=== PATIENT | male | born 1990 | race Caucasian/White ===

== ENCOUNTER 2024-01-18 11:33 | Inpatient (IN) | payer MEDICARE, MEDICAID, SELFPAY ==
[2024-01-18] VITALS (11 sets, daily range): BP systolic 131–155; BP diastolic 90–99; PULSE 95–109; RESP 14–27; TEMP 36.1–37; O2SAT 95–100; BMI 26.7; BMI 31.4
--- NOTE | 2024-01-18 12:26 | XR_ITS ---
Examination: CT abdomen and pelvis without contrast. Coronal 3-D reconstructions. Sagittal 2-D reconstructions. Date and time of exam:January 18, 2024 at 1255 hrs. Comparison August 23, 2020 Indications: Blood in urine today CTDI: vol (mGy): 15.3 DLP: (mGycm): 1022 Technique: Axial images of the abdomen have been obtained, 3 mm slice thickness Intravenous contrast material has not been administered. Low dose protocols were performed. One or more of the following dose reduction techniques were used; automated exposure control, adjustment of the mA and/or KV according to patient size, use of iterative reconstruction technique. Findings: Mild enlargement cardiac contour with small bilateral pleural effusions No liver or splenic lesions Numerous bilateral renal calculi, atrophic left kidney No definite ureteral calculi No gallstones No bowel obstruction No diastases of the abdominal musculature but no mary hernia defects No bowel obstruction No diverticulitis Bladder contracted around a Richardson catheter with marked bladder wall thickening Severe osteopenia Impression: Numerous bilateral renal calculi Atrophic left kidney Significant bilateral renal parenchymal scar formation No hydronephrosis or ureteral calculi Marked thickening of the urinary bladder wall consider cystitis
--- NOTE | 2024-01-18 12:26 | PD.EDADULT ---
ED General RME/HPI General Chief complaint: Weakness Stated complaint: WEAKNESS, BLOOD IN MAY BAG Time Seen by Provider: 01/18/24 11:48 Arrival date/time: 01/18/24 11:33 CC: Bloody urination, hypotension HPI patient is a quadriplegic this presents to the ER via EMS reports stable vital signs patient is afebrile nontoxic-appearing concerned that he started having bloody urination yesterday out of his May catheter. The patient shows me recent surgical intervention to his right upper arm and states since then everything has been okay until yesterday when he urinated blood, denies fever. States that he takes a [place] every 4-5 hours [id number]. Immediately asking for pain medication. Patient has no other complaints Related Data Home Medications ?Medication ?Instructions ?Recorded ?Confirmed gabapentin 600 mg tablet 600 mg PO TID 03/29/19 12/26/22 cholestyramine (with sugar) 4 gram 1 ea PO BID 08/24/20 12/26/22 powder for susp in a packet cyclobenzaprine 5 mg tablet 5 mg PO BID 08/24/20 12/26/22 levothyroxine 25 mcg tablet 25 mcg PO QDAY 08/24/20 12/26/22 magnesium oxide 400 mg PO BID 08/24/20 12/26/22 sevelamer carbonate 800 mg tablet 2,400 mg PO TIDWMEAL 08/24/20 12/26/22 sodium zirconium cyclosilicate 10 10 g PO QDAY 08/24/20 12/26/22 gram oral powder packet (Lokelma) cinacalcet 30 mg tablet 30 mg PO QDAY 07/10/22 12/26/22 midodrine 10 mg tablet 10 mg PO TID PRN Hypotension 07/10/22 12/26/22 omeprazole 40 mg capsule,delayed 40 mg PO QDAY 07/10/22 12/26/22 release hydrocodone 10 mg-acetaminophen 1 tab PO Q6H PRN Pain (Scale Score 12/26/22 12/26/22 325 mg tablet 7-10) sodium bicarbonate 650 mg tablet 650 mg PO BID 12/26/22 12/26/22 Previous Rx's ?Medication ?Instructions ?Recorded mupirocin 2 % topical ointment 1 applic topical BID #22 grams 12/28/22 Allergies Allergy/AdvReac Type Severity Reaction Status Date / Time piperacillin [From Zosyn] Allergy Severe Anaphylaxis Verified 01/18/24 12:28 tazobactam [From Zosyn] Allergy Severe Anaphylaxis Verified 01/18/24 12:28 LIZY Inhibitors Allergy Verified 01/18/24 12:28 Penicillins Allergy Anaphylaxis Verified 01/18/24 12:28 Review of Systems Review of Systems Narrative Review of Systems: GEN: No fever, no chills, no weight loss EYES: No discharge, no visual changes, no pain HEENT: No ear pain, no congestion, no sore throat PULM: No shortness of breath, no cough, no congestion CV: No chest pain, no dyspnea on exertion, no palpitations GI: No nausea, no vomiting, no diarrhea, no pain, no constipation : No frequency, no urgency, no dysuria SKIN: No rash PSYCH: No hallucinations, no depression NEURO: No weakness, no headache Past Medical History Past Medical History NEUROLOGIC: Positive Paralysis and Spinal Cord Injury; Negative Seizures CARDIAC: Positive Cardiac Disorders, Cardiac Arrhythmia, Hypertension and Hypotension; Negative Congestive Heart Failure RESPIRATORY: Positive Sleep Apnea, Orthopnea and Intubation; Negative Chronic Obstructive Pulmonary Disease (COPD) or Asthma GASTROINTESTINAL: Positive Gastrointestinal Disorders, Gastrointestinal Bleed, Hemorrhoids and Gastroesophageal Reflux Disease GENITOURINARY: Positive Genitourinary Disorders, Renal Disease, Kidney Stones, Neurogenic Bladder and Dialysis MUSCULOSKELETAL: Positive Musculoskeletal Disorders ENDOCRINE: Positive Hypothyroidism; Negative Diabetes Mellitus Type 1 or Diabetes Mellitus Type 2 HEMATOLOGIC: Negative Sickle Cell Disease PSYCHO/SOCIAL: Positive Depression and Anxiety OTHER HISTORY: Positive Hospitalization, Falls and Blood Transfusions; Negative Blood Transfusion Reaction or Anesthesia Reactions Family History FAMILY HISTORY: Positive Family Cancer Surgical History SURGICAL: Positive Tracheostomy (2004) Social History SMOKING STATUS: Current every day smoker SECOND HAND EXPOSURE: No (11 cig/day since 16 yrs old) SUBSTANCE USE: marijuana (smokes daily) OCCUPATION: Unemployed, disabled ED Exam Narrative Physical exam: [General: Obese, appears not in any acute distress Head normocephalic HEENT: Within acceptable limits Neck is supple nontender, no edema no JVD Chest equal chest rise nontender to palpation Respiratory: Clear to auscultation no wheezes crackles or rubs CV: Rate rhythm is regular no murmurs rubs or clicks Abdomen is distended secondary to body habitus soft positive bowel sounds, patient is quadriplegic therefore no sensation. Skin: Inner upper arm surgical site clean dry and intact no surrounding erythema or edema intact no petechiae rash induration ulceration or crepitus Extremities:, Deconditioned, no contractures limp, but passive range of motion. Neuro: Awake alert oriented x3 Course Quality Measures none Orders Category Date Time Status CT abdomen pelvis wo con Stat Exams 01/18/24 12:26 Completed CBC Stat Lab 01/18/24 14:03 Completed CMP [Comprehensive Metabolic Panel] Stat Lab 01/18/24 14:03 Completed Urinalysis Stat Lab 01/18/24 12:44 Completed HYDROcodone*/APAP 5/325 [[place] 5/325] Med 01/18/24 12:26 Discontinued 1 tab PO X1 ONE Vital Signs Vital signs: Vital Signs Temperature 97.9 F 01/18/24 11:37 Pulse Rate 101 H 01/18/24 11:37 Respiratory Rate 20 01/18/24 11:37 Blood Pressure 136/93 H 01/18/24 11:37 Pulse Oximetry (%) 95 01/18/24 11:37 Oxygen Delivery Method Room Air 01/18/24 11:37 [facility] Patient data External records reviewed:: [facility] previous records and EMS form Clinical information provided by:: patient and EMS Social determinants that could affect healthcare access:: none Patient has the following chronic illnesses:: Quadriplegia How is presenting disease/condition affected by chronic disease/condition?: uneffected by Evaluation data The following diagnostics were reviewed and interpreted by me:: lab results and radiology exam(s) Lab and/or radiology exams considered but not ordered:: CBC shows no acute leukocytosis there is a stable anemia no thrombocytopenia Urine is grossly infected, with positive nitrites, positive leukocyte esterase large number of WBCs and bacteria is minimal. CT of the abdomen shows a thickened bladder wall but also numerous renal pelvis stones, no hydro. Interpretation Summary: Patient presents a complex case even though the patient is asymptomatic nontoxic-appearing not in any acute distress the urine culture from August of this year's complaint showing 3 different bacteria that have multidrug resistance. ESBL is on the differential. Patient's case discussed with Dr. Bolden who agrees to accept the patient for observation for IV antibiotics to see if we can stabilize this. CT notes that the patient has large number of stones which have the potential being infected as well. Medications Medications considered but not ordered:: None Medication administrations:: Medication Administration History Acetaminophen (Acetaminophen 325 Mg Tablet) 650 mg PO Q6H PRN PRN Reason: Fever >101.5 Stop: 02/17/24 15:29 Acetaminophen (Acetaminophen Supp 650 Mg Supp) 650 mg DE Q6H PRN PRN Reason: PAIN SCALE 1-3 (mild Stop: 02/17/24 15:29 Albuterol (Albuterol Rt 2.5 Mg/0.5 Ml Nebu) 2.5 mg INH Q6HRRT FOREIGN Stop: 02/17/24 18:59 Last Admin: 01/18/24 18:26 Dose: 2.5 mg Documented By: NIYAH Doxycycline Hyclate (Doxycycline 100 Mg Tablet) 100 mg PO BID FOREIGN Stop: 01/25/24 20:59 Last Admin: 01/18/24 20:05 Dose: 100 mg Documented By: Meropenem 1,000 mg/ Sodium (Chloride) 50 mls @ 100 mls/hr IV QDAY FOREIGN Stop: 01/25/24 17:44 Last Infusion: 01/18/24 19:14 Dose: Infused Documented By: Admin: 01/18/24 18:16 Dose: 100 mls/hr Documented By: Ondansetron HCl (Ondansetron Inj 2 Mg/Ml Inj 2 Ml) 4 mg IV Q6H PRN; Protocol PRN Reason: NAUSEA OR VOMITING Stop: 02/17/24 15:29 Oxycodone/Acetaminophen (Oxycodone/Apap 5/325 Tablet) 2 tab PO Q6H PRN PRN Reason: Pain Scale 4-10 (Moderate Stop: 01/23/24 15:40 Last Admin: 01/18/24 19:57 Dose: 2 tab Documented By: Pantoprazole Sodium (Pantoprazole 40 Mg Tablet) 40 mg PO QDAY FOREIGN Stop: 02/18/24 08:59 Sennosides (Senna Tablet) 1 tab PO QDAY FOREIGN; Protocol Stop: 02/18/24 08:59 Sodium Chloride (Sodium Chloride Rt [place] 0.9% 3 Ml Nebu) 3 ml INH PRN PRN PRN Reason: SOLN Stop: 02/17/24 15:29 Last Admin: 01/18/24 18:26 Dose: 3 ml Documented By: NIYAH Discontinued Medications Hydrocodone Bitart/Acetaminophen (Hydrocodone/Apap 5/325 Tablet) 1 tab PO X1 ONE Stop: 01/18/24 12:27 Last Admin: 01/18/24 12:39 Dose: 1 tab Documented By: DO Ceftriaxone Sodium/Dextrose (Rocephin/D5w 1gm Iv Premix) 50 mls @ 100 mls/hr IV QDAY FOREIGN Stop: 01/25/24 16:21 Last Admin: 01/18/24 17:25 Dose: Not Given Documented By: DO Non-Admin Reason: Cancelled by Provider None Consultations Consultation(s) initiated? (list below): No Diagnosis Differential Diagnosis ED Complaint MDM: ESBL, pyelonephritis, UTI Most likely diagnosis given after review of the tests above:: Multidrug resistant UTI Admission Indicated Admission indicated?: indicated Explain why admission is indicated or not indicated:: Requires further medical management Admission Request Was there a request for admission?: No Disposition Plan Disposition Plan: Discharge Discharge Attestation Discharge Attestation: The patient and all family members were given an opportunity to ask questions and understood the discharge instructions. Discharge instructions specifically effects, indications for sooner follow up or return to the emergency department, and the expected course of current diagnosis. Patient condition: Stable Medical Decision Making Differential Diagnosis Differential Diagnosis: ESBL, pyelonephritis, UTI Lab Data 01/18/24 14:03 01/18/24 14:03 Labs: Lab Results 01/18/24 01/18/24 Range/Units 12:44 14:03 WBC 7.8 (3.8-10.6) Thou/mm3 RBC 3.27 L (4.50-5.90) Miln/mm3 Hgb 11.0 L (13.5-16.0) g/dL Hct 34.9 L (41.0-53.0) % MCV 107 H (80-100) fL MCH 33.6 (25.0-35.0) pg MCHC 31.5 (31.0-37.0) g/dl RDW Std Deviation 52.6 H (35.1-43.9) fL Plt Count 149 (140-440) Thou/mm3 Neut % (Auto) 76 (37-80) % Lymph % (Auto) 10 (10-50) % [place] % (Auto) 10 (0-12) % Eos % (Auto) 2 (0-10) % Baso % (Auto) 1 (0-2.5) % Neut # (Auto) 6.0 (1.8-7.7) Thou/mm3 Lymph # (Auto) 0.8 L (1.0-4.8) Thou/mm3 [place] # (Auto) 0.8 (0.0-0.8) Thou/mm3 Eos # (Auto) 0.2 (0.0-0.5) Thou/mm3 Baso # (Auto) 0.1 (0.0-0.2) Thou/mm3 Immature Gran # (Auto) 0.03 H (0.00-0.00) Thou/mm3 Absolute Nucleated RBC 0.00 (0.00-0.00) Thou/mm3 Immature Gran % 0 (0-0) % Nucleated RBC % 0 (0) /100 WBC Sodium 134 L (136-145) mMol/L Potassium 4.7 (3.4-5.1) mMol/L Chloride 101 (98-107) mMol/L Carbon Dioxide 26.3 (20.0-31.0) mMol/L Anion Gap 7 (7-16) BUN 27 H (9-23) mg/dL Creatinine 3.5 H (0.6-1.3) mg/dL Estim Creat Clear Calc 36.2 L (>60) mL/min eGFR 22 L (60 - ) See Note BUN/Creatinine Ratio 8 L (12-20) Ratio Glucose 95 (74-106) mg/dL Calculated Osmolality 273 L (275-295) Calcium 9.4 (8.3-10.6) mg/dL Corrected Calcium 9.4 (8.5-10.1) mg/dL Total Bilirubin 0.2 L (0.3-1.2) mg/dL AST 10 (0-34) U/L ALT 10 (10-49) U/L Alkaline Phosphatase 140 H (46-116) U/L Total Protein 7.1 (5.7-8.2) gm/dL Albumin 4.0 (3.5-5.0) gm/dL Globulin 3.1 (2.3-3.5) gm/dL Albumin/Globulin Ratio 1.3 (1.2-2.2) Ur Collection Type Catheter Urine Color [place] A (Lt Yel-Yel) Urine Clarity Turbid A (Clear/Hazy) Urine pH 7.0 (5.0-7.0) Ur Specific [place] 1.007 (1.001-1.035) Urine Protein 3+ A (Neg - Trace) Urine Glucose (UA) Negative (Negative) Urine Ketones Negative (Negative) Urine Blood 3+ A (Negative) Urine Nitrite Positive (Negative) Urine Bilirubin Negative (Negative) Urine Urobilinogen (Auto) Negative (0.0-1.0) mg/dL Ur Leukocyte Esterase Positive (Negative) Urine RBC 178 H (0-3) /hpf Urine WBC 2116 H (0-5) /hpf Ur Squamous Epith Cells 0 (0-5) /hpf Urine Bacteria None (None) Discharge Plan Plan Patient Disposition: Admit Acute Care w/in Hospital Patient condition on transfer: Stable Problem List Clinical Impression: Urinary tract infection, Colonization with multidrug-resistant bacteria MAYTE/MADELAINE Supervising Physician MAYTE/CAREER DEVELOPMENT MANAGER Supervising Physician: Alison Crews ENP
[2024-01-18] MEDS: HYDROcodone/APAP 5/325 TABLET 1 TAB PO (12:39)
--- NOTE | 2024-01-18 12:49 | PC.NURSE ---
pt to ct
[2024-01-18 12:58] LABS: Collection Type, Urine Catheter; Squamous Epithelial Cell,Urine 0 /hpf (0-5)
[2024-01-18 13:09] LABS: Bilirubin,Urine Negative (Negative); Blood,Urine 3+ (Negative); Glucose, Urine Negative (Negative); Ketones,Urine Negative (Negative); Leukocyte Esterase,Urine Positive (Negative); Nitrite,Urine Positive (Negative); Protein,Urine 3+ (Neg - Trace); RBC,Urine 178 /hpf (0-3); Specific Gravity,Urine 1.007 (1.001-1.035); Urobilinogen,Urine Negative mg/dL (0.0-1.0); WBC,Urine 2116 /hpf (0-5)
[2024-01-18 13:10] LABS: Clarity,Urine Turbid (Clear/Hazy); Color,Urine Orange (Lt Yel-Yel)
[2024-01-18 14:10] LABS: Basophils # (Auto) 0.1 Thou/mm3 (0.0-0.2); Basophils % (Auto) 1 % (0-2.5); Eosinophils # (Auto) 0.2 Thou/mm3 (0.0-0.5); Eosinophils % (Auto) 2 % (0-10); Hematocrit 34.9 % (41.0-53.0); Immature Granulocytes % (Auto) 0 % (0-0); Immature Granulocytes Auto 0.03 Thou/mm3 (0.00-0.00); Lymphocytes # (Auto) 0.8 Thou/mm3 (1.0-4.8); Lymphocytes % (Auto) 10 % (10-50); Mean Corpuscular HGB Conc 31.5 g/dl (31.0-37.0); Mean Corpuscular Hemoglobin 33.6 pg (25.0-35.0); Mean Corpuscular Volume 107 fL (80-100); Monocytes # (Auto) 0.8 Thou/mm3 (0.0-0.8); Monocytes % (Auto) 10 % (0-12); Neutrophils % (Auto) 76 % (37-80); Nucleated Red Blood Cell % 0 /100 WBC (0); Platelet Count 149 Thou/mm3 (140-440); RDW Standard Deviation 52.6 fL (35.1-43.9); Red Blood Count 3.27 Miln/mm3 (4.50-5.90); White Blood Count 7.8 Thou/mm3 (3.8-10.6)
[2024-01-18 14:43] LABS: Alanine Aminotransferase 10 U/L (10-49); Albumin/Globulin Ratio 1.3 (1.2-2.2); Alkaline Phosphatase 140 U/L (46-116); Anion Gap 7 (7-16); Aspartate Amino Transferase 10 U/L (0-34); BUN/Creatinine Ratio 8 Ratio (12-20); Bilirubin,Total 0.2 mg/dL (0.3-1.2); Blood Urea Nitrogen 27 mg/dL (9-23); Calcium 9.4 mg/dL (8.3-10.6); Calcium (Corrected) 9.4 mg/dL (8.5-10.1); Carbon Dioxide 26.3 mMol/L (20.0-31.0); Chloride 101 mMol/L (98-107); Creatinine (Component) 3.5 mg/dL (0.6-1.3); Estimated Creatinine Clearance 36.2 mL/min (>60); Globulin 3.1 gm/dL (2.3-3.5); Glucose 95 mg/dL (74-106); Osmolality,Calculated 273 (275-295); Potassium 4.7 mMol/L (3.4-5.1); Sodium 134 mMol/L (136-145); Total Protein 7.1 gm/dL (5.7-8.2); eGFR 22 See Note
--- NOTE | 2024-01-18 15:50 | PD.RESCONSUL ---
HPI Data of Consult Primary Care Provider: Bryce Bunn MD Consult Narrative History of present illness: 33 year old male PMHx paraplegia since age 13, ESRD on HD since 2019, recurrent nephrolithiasis w/ UTI and pyelonephritis, tunneled catheter with MRSA infection, abdominal necrotizing fasciitis s/p extensive skin graft, s/p ileostomy presented to ED with hematuria x 1 day. Notably he visited the ED november 2023 for UTI and was discharged on bactrim, subsequent cultures showed that he had multidrug resistant infection with klebsiella, pseudomonas, e coli. Pt states he has not had visible blood in his urine for a few years. He reports that he does not feel like he has a fever, malaise , or chills, but does note that he feels weak. Pt states that he takes norco 10 around the clock every 4-5 hours for pain. He has no pubic or abdominal pain due to his SCI. He has a chronic indwelling catheter which he notes is changed every 3 weeks, and he gets HD every friday and friday. PMH: paraplegic since age 13, ESRD with HD, recurrent nephrolithiasis, recurrent UTI, MRSA infection, PSHx: left IJ cath placement for HD Allergies: zosyn-anaphylaxis, penicillin, AceI Social history: -Smoking: cigarettes 10 pack year history -Alcohol Use: none -Illicit Drug Use: marijuana but says he stopped recently -Occupation:unemployed -lives : with family Family History:none noted cc:: cc: Review of Systems Review of Systems Narrative Review of Systems: ROS: -CONSTITUTIONAL: Denies weight loss, fever and chills. -HEENT: Denies changes in vision and hearing. -RESPIRATORY: endorses SOB and cough. -CV: Denies palpitations and Chest Pain. -GI: Denies abdominal pain, nausea, vomiting,constipation and diarrhea. -: Denies dysuria and urinary frequency. -MSK: Denies myalgia and joint pain. -SKIN: Denies rash and pruritus. -NEUROLOGICAL: Denies headache and syncope. Exam Vital Signs Temp Pulse Resp BP Pulse Ox O2 Del Method O2 Flow Rate 97.8 F 107 H 18 134/91 H 99 Nasal Cannula 2 01/18/24 14:15 01/18/24 14:15 01/18/24 14:15 01/18/24 14:15 01/18/24 14:15 01/18/24 14:15 01/18/24 14:15 Narrative Exam Physical Exam General: Awake and in no acute distress. Conversational and non-toxic appearing. HEENT: Normocephalic, atraumatic, mucous membranes moist, Heart: Regular rate and rhythm, no murmurs, rubs or gallops. Lungs: coarse breath sounds throughout , ronchi, occasional wheezing in right lower lung field, visibly short of breath when talking Abdomen: Soft, nondistended, nontender, positive bowel sounds. ?No guarding or rebound tenderness. Neurologic: Alert and oriented x3, no sensation or motor function below chest line Extremities: both legs atrophied Skin: No rash or ecchymoses. Results Labs 01/19/24 05:08 01/19/24 05:08 Labs: Short CBC 01/18/24 Range/Units 14:03 WBC 7.8 (3.8-10.6) Thou/mm3 Hgb 11.0 L (13.5-16.0) g/dL Hct 34.9 L (41.0-53.0) % Plt Count 149 (140-440) Thou/mm3 BMP 01/18/24 14:03 Sodium 134 L Potassium 4.7 Chloride 101 Carbon Dioxide 26.3 BUN 27 H Creatinine 3.5 H Glucose 95 Calcium 9.4 Liver Function 01/18/24 Range/Units 14:03 Total Bilirubin 0.2 L (0.3-1.2) mg/dL AST 10 (0-34) U/L ALT 10 (10-49) U/L Alkaline Phosphatase 140 H (46-116) U/L Albumin 4.0 (3.5-5.0) gm/dL Urine 01/18/24 Range/Units 12:44 Urine Color [place] A (Lt Yel-Yel) Urine Clarity Turbid A (Clear/Hazy) Urine pH 7.0 (5.0-7.0) Ur Specific [place] 1.007 (1.001-1.035) Urine Protein 3+ A (Neg - Trace) Urine Glucose (UA) Negative (Negative) Quality Measures Quality Measures VTE prophylaxis Medications Home Medications and Allergies Home Medications ?Medication ?Instructions ?Recorded ?Confirmed ?Type gabapentin 600 mg tablet 600 mg PO TID 03/29/19 12/26/22 History cholestyramine (with sugar) 4 gram 1 ea PO BID 08/24/20 12/26/22 History powder for susp in a packet levothyroxine 25 mcg tablet 25 mcg PO QDAY 08/24/20 01/19/24 History magnesium oxide 400 mg PO BID 08/24/20 12/26/22 History sevelamer carbonate 800 mg tablet 2,400 mg PO TIDWMEAL 08/24/20 12/26/22 History sodium zirconium cyclosilicate 10 10 g PO QDAY 08/24/20 12/26/22 History gram oral powder packet (Lokelma) cinacalcet 30 mg tablet 30 mg PO QDAY 07/10/22 12/26/22 History midodrine 10 mg tablet 10 mg PO TID PRN Hypotension 07/10/22 12/26/22 History omeprazole 40 mg capsule,delayed 40 mg PO QDAY 07/10/22 12/26/22 History release hydrocodone 10 mg-acetaminophen 1 tab PO Q6H PRN Pain (Scale Score 12/26/22 12/26/22 History 325 mg tablet 7-10) sodium bicarbonate 650 mg tablet 650 mg PO BID 12/26/22 12/26/22 History cyclobenzaprine 5 mg tablet 5 mg PO Q8HR PRN Muscle Spasm 01/19/24 01/19/24 History Allergies Allergy/AdvReac Type Severity Reaction Status Date / Time piperacillin [From Zosyn] Allergy Severe Anaphylaxis Verified 01/18/24 12:28 tazobactam [From Zosyn] Allergy Severe Anaphylaxis Verified 01/18/24 12:28 LIZY Inhibitors Allergy Verified 01/18/24 12:28 Penicillins Allergy Anaphylaxis Verified 01/18/24 12:28 Visit Medications Acetaminophen (Acetaminophen 325 Mg Tablet) 650 mg PO Q6H PRN PRN Reason: Fever >101.5 Stop: 02/17/24 15:29 Acetaminophen (Acetaminophen Supp 650 Mg Supp) 650 mg [place] Q6H PRN PRN Reason: PAIN SCALE 1-3 (mild Stop: 02/17/24 15:29 Albuterol (Albuterol Rt 2.5 Mg/0.5 Ml Nebu) 2.5 mg INH Q6HRRT FOREIGN Stop: 02/17/24 18:59 Ondansetron HCl (Ondansetron Inj 2 Mg/Ml Inj 2 Ml) 4 mg IV Q6H PRN; Protocol PRN Reason: NAUSEA OR VOMITING Stop: 02/17/24 15:29 Oxycodone/Acetaminophen (Oxycodone/Apap 5/325 Tablet) 2 tab PO Q6H PRN PRN Reason: Pain Scale 4-10 (Moderate Stop: 01/23/24 15:40 Pantoprazole Sodium (Pantoprazole 40 Mg Tablet) 40 mg PO QDAY FOREIGN Stop: 02/18/24 08:59 Pharmacy Consult (Pharmacy To Consult Patient) 1 each XX QDAY FOREIGN Stop: 02/17/24 15:44 Sennosides (Senna Tablet) 1 tab PO QDAY FOREIGN; Protocol Stop: 02/18/24 08:59 Sodium Chloride (Sodium Chloride Rt [place] 0.9% 3 Ml Nebu) 3 ml INH PRN PRN PRN Reason: SOLN Stop: 02/17/24 15:29 Discontinued Medications Hydrocodone Bitart/Acetaminophen (Hydrocodone/Apap 5/325 Tablet) 1 tab PO X1 ONE Stop: 01/18/24 12:27 Last Admin: 01/18/24 12:39 Dose: 1 tab Assessment & Plan Problem List (1) Urinary tract infection: Status: Acute (2) Colonization with multidrug-resistant bacteria: Status: Acute (3) Hypotension: Status: Acute (4) ESRD (end stage renal disease): Status: Acute (5) Hyponatremia: Status: Acute (6) Renal calculus, bilateral: Status: Acute (7) Hematuria: Status: Acute Assessment 33 year old male PMHx paraplegia since age 13, ESRD on HD since 2019, recurrent nephrolithiasis w/ UTI and pyelonephritis, tunneled catheter with MRSA infection, abdominal necrotizing fasciitis s/p extensive skin graft, s/p ileostomy presented to ED with hematuria x 1 day. Notably he visited the ED november 2023 for UTI and was discharged on bactrim, subsequent cultures showed that he had multidrug resistant infection with klebsiella, pseudomonas, e coli. Arrived to ED afebrile, non toxic appearing with normal WBC, tachycardic at 101, chronically high creatinine of 3.5 BUN 27. UA with 3+ blood and suggestive of UTI , CT A/P showed no hydronephrosis, but with bilateral renal calculi, and cystitis. Due to history of MDR bacteria, and hematuria patient is being admitted to obs for IV antibiotic treatment , consult to nephro for HD and ID. Plan #UTI #Bilateral Renal Calculi #Hematuria History of recurrent UTI and calculi, most recently in november was discharged on bactrim. previous culture showed MDR klebisella, pseudomonas, e.coli. does not meet sepsis criteria, 1/4 SIRS, non toxic appearing. UA with 3+ blood and suggestive of UTI , CT A/P showed no hydronephrosis, but with bilateral renal calculi, and cystitis. plan: - admit to observation - consult ID - Start on doxycycline 100mg po BID , Ceftriaxone for now , spoke w pharmacy - CBC/ Renal panel - oxycodone q6for pain #ESRD on HD since 2018 IJ cath placed in 2019 creatinine 3.5, BUN 27 HD fri and friday under Dr. Jeff plan: - consult nephrology - sodium bicarb 650 po BID - sevelamer 2400mg po TID - cincalcet 30 mg po daily - lokelma 10g po daily - MG Oxide 400mg PO BID #Paraplegia #Hypotension #chronic thoracic pain since age 13 , SCI T5-T6 s/p laminectomy and fusion plan: - continue gabapentin 600mg TID - Midodrine 10mg prn - oxycodone q6 - cyclobenzaprine 5mg po BID #hypothyroidism TSH 1.62 12/2022 plan: - continue home levothyroxine 25mcg Case discussed in detail with attending Dr. Bolden
[2024-01-18] MEDS: MEROPENEM INJ 1,000 MG in SODIUM CHLORIDE 0.9% (P) 50 ML 100 MG IV (18:16)
[2024-01-18] MEDS: SODIUM CHLORIDE RT SOL 0.9% 3 ML NEBU INH (18:26)
[2024-01-18] MEDS: ALBUTEROL RT 2.5 MG/0.5 ML NEBU INH (18:26)
--- NOTE | 2024-01-18 18:43 | XR_ITS ---
Examination: AP chest single view Technique one AP portable sitting chest single view Exam date and time: January 18, 2024 1848 hrs. Indications: Shortness breath chest pain today. Findings: Opacity left base and lingular segment consistent with pneumonia Abnormally prominent right paratracheal region Orthopedic hardware upper thoracic spine Normal heart size Impression: Pneumonia left base and lingular segment left upper lobe Recommend CT chest with contrast follow-up to exclude right mediastinal tumor lymphadenopathy
--- NOTE | 2024-01-18 18:45 | PC.RT ---
PT showing no improvement with breathing tx and cuourse crackles heard. MD Grady contacted and [facility] for chest x-ray and BiPAP order.
--- NOTE | 2024-01-18 18:45 | PC.NURSE ---
CHANGED PT'S LINENS. REDNESS AND OLD SCARRING NOTED TO BUTTOCK AREA. PER PT HE HAD BED SORES IN THE PAST. COLOSTOMY BAG DRAINED
--- NOTE | 2024-01-18 19:14 | PC.NURSE ---
REPORT GIVEN TO JENN ON MED/SURG FLOOR. PT TO GO TO ROOM [id number]
[2024-01-18] MEDS: oxyCODONE/APAP 5/325 TABLET 2 TAB PO (19:57)
[2024-01-18] MEDS: DOXYCYCLINE 100 MG TABLET PO (20:05)
[2024-01-18] MEDS: ALPRazoLAM 0.25 MG TABLET PO (23:57)
[2024-01-19] VITALS (30 sets, daily range): BP systolic 96–179; BP diastolic 41–98; PULSE 85–115; RESP 14–29; TEMP 36.1–36.5; O2SAT 92–100
[2024-01-19] MEDS: LEVOTHYROXINE SODIUM 25 MCG TABLET PO (06:01)
[2024-01-19 06:06] LABS: Basophils # (Auto) 0.1 Thou/mm3 (0.0-0.2); Basophils % (Auto) 1 % (0-2.5); Eosinophils # (Auto) 0.2 Thou/mm3 (0.0-0.5); Eosinophils % (Auto) 2 % (0-10); Hematocrit 37.1 % (41.0-53.0); Hemoglobin 11.2 g/dL (13.5-16.0); Immature Granulocytes % (Auto) 1 % (0-0); Immature Granulocytes Auto 0.07 Thou/mm3 (0.00-0.00); Lymphocytes # (Auto) 0.8 Thou/mm3 (1.0-4.8); Lymphocytes % (Auto) 9 % (10-50); Mean Corpuscular HGB Conc 30.2 g/dl (31.0-37.0); Mean Corpuscular Hemoglobin 33.4 pg (25.0-35.0); Mean Corpuscular Volume 111 fL (80-100); Monocytes % (Auto) 11 % (0-12); Neutrophils # (Auto) 7.2 Thou/mm3 (1.8-7.7); Neutrophils % (Auto) 78 % (37-80); Nucleated Red Blood Cell % 0 /100 WBC (0); Platelet Count 143 Thou/mm3 (140-440); Red Blood Count 3.35 Miln/mm3 (4.50-5.90); White Blood Count 9.2 Thou/mm3 (3.8-10.6)
[2024-01-19] MEDS: HYDROcodone/APAP 10/325 TAB PO ×3 (06:10→18:29)
[2024-01-19 07:02] LABS: Albumin, Serum 4.1 gm/dL (3.5-5.0); Anion Gap 7 (7-16); BUN/Creatinine Ratio 7 Ratio (12-20); Blood Urea Nitrogen 26 mg/dL (9-23); Calcium 9.3 mg/dL (8.3-10.6); Calcium (Corrected) 9.3 mg/dL (8.5-10.1); Carbon Dioxide 28.1 mMol/L (20.0-31.0); Chloride 100 mMol/L (98-107); Estimated Creatinine Clearance 36.1 mL/min (>60); Glucose 88 mg/dL (74-106); Osmolality,Calculated 273 (275-295); Phosphorous 6.9 mg/dL (2.4-5.1); Potassium 5.1 mMol/L (3.4-5.1); Sodium 135 mMol/L (136-145); eGFR 19 See Note
--- NOTE | 2024-01-19 08:09 | XR_ITS ---
Examination: CT chest, without intravenous contrast. Sagittal and coronal 2-D reconstructions. Exam date and time: January 19, 2024 at 1707 hrs. Comparison August 23, 2020 Indications: Difficulty breathing this week, chest x-ray 01/18/2024 pneumonia left base and lingular segment left upper lobe, prominent right mediastinum CTDI:vol (mGy) 31.6 DLP: (mGycm) 307 Technique: Multiple 3.0 mm axial sections of the chest to been obtained. Bone and lung density settings are obtained. Sagittal and coronal 2-D reconstructions have been obtained. Low dose protocols were performed. One or more of the following dose reduction techniques were used; automated exposure control, adjustment of the mA and/or KV according to patient size, use of iterative reconstruction technique. Findings: Multiple right high paratracheal and tracheobronchial lymph nodes which may be reactive Mild to moderate enlargement cardiac contour with prominent vascular congestion Bibasilar pneumonia with small pleural effusions No visualized liver or splenic lesion Partially visualized atrophic scarred left kidney No pancreatic mass Impression: Multiple high right paratracheal and right tracheobronchial lymph nodes which may be reactive Mild heart failure pattern Bibasilar pneumonia with small pleural effusions
[2024-01-19 08:35] LABS: Folate 12.94 ng/mL (>5.38); Vitamin B12 355 pg/mL (211-911)
[2024-01-19 08:39] LABS: B-Type Natriuretic Peptide 172 pg/mL (0-100)
[2024-01-19 10:09] LABS: Ferritin 771 ng/mL (10.5-307.3); Total Iron Binding Capacity 253 mcg/dL (250-425)
[2024-01-19 10:18] LABS: Iron 68 mcg/dL (65-175); Percent Iron Saturation 26 % (20-55); Unsaturated Iron Binding 185 (225-295)
--- NOTE | 2024-01-19 10:32 | PC.NURSE ---
BP dropped, goal decreased to 1.5L.
[2024-01-19] MEDS: ALBUTEROL/IPRATROPIUM (Duoneb) RT SOL 3 ML NEBU INH (10:52)
--- NOTE | 2024-01-19 11:01 | PC.NURSE ---
Pt trying to cough up phlegm, unable to so called for breathing treatment.
--- NOTE | 2024-01-19 11:06 | PD.RESCONSUL ---
HPI Data of Consult Requesting Physician: Joey Bolden DO Admitting Provider: Joey Bolden DO Attending Provider: Joey Bolden DO Primary Care Provider: Bryce Bunn MD Consult Narrative History of present illness: Patient is a 33-year-old male with a past medical history of paraplegia since the age of 13 (intubation scar noted on his chest), ESRD on Dialysis (Friday), recurrent nephrolithiasis, history of pyelonephritis, and hx catheter associated complicated urinary tract infections, history of abdominal wall necrotizing fasciitis post skin graft, s/p ileostomy. Admitted on (01/18/2024) catheter associated complicated urinary tract infection. Overnight patient received Alprazolam 0.25 mg PO X1 for agitation. This morning patient was examined at beside, was difficult to arouse. Patient denied chest pain or SOB. Patient's speech with dysarthric and difficult to comprehended as patient was drowsy, which is likely secondary to [place], Alprazolam, and dialysis session. Limited history was collected from patient at bedside. Patient is a poor historian given recent administration of Alprazolam. cc:: cc: Joey Bolden DO Review of Systems Review of Systems Narrative Review of Systems: Cardiac: NO chest pain, NO Palpitations, NO dyspnea on exertion, NO orthopnea, NO paroxysmal nocturnal dyspnea, NO edema Respiratory: YES Shortness of Breath, NO Wheezing, NO Cough, NO Sputum, NO hemoptysis Renal: NO frequency, NO hesitancy, NO urgency, NO hematuria, NO nocturia, NO incontinence Poor historian, secondary to administration of medication Exam Vital Signs Temp Pulse Resp BP Pulse Ox O2 Del Method O2 Flow Rate 97.7 F 89 24 H 132/81 H 96 Nasal Cannula 5 01/19/24 08:21 01/19/24 11:00 01/19/24 10:52 01/19/24 11:00 01/19/24 10:52 01/19/24 08:00 01/19/24 10:52 FiO2 35 01/19/24 06:57 Narrative Exam General Appearance: Alert & Oriented X1, well-nourished male who is lying in bed in no acute distress HEENT: Skull symmetrical and atraumatic. Conjunctivae pale pink and moist. Pupils equal, round, reactive to light and accommodation (PERRL). Cardio: Normal Rate and Rhythm with S1 and S2 heart sounds but overall difficult to accesses with upper airway breathing. No peripheral edema or cyanosis. 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 Upper airway breathing. Distant vesicular breath sounds. Abdomen: mild tenderness, Non-distended, Normal Reactive Bowel Sounds Neuro: Alert, NO cooperative, Not oriented to person, place, and time. Dysarthric Speech. Lower motor strength 0/5. Sensation unable to accesses. Difficult to ascesses as patient was unable to follow commands. Results Labs 01/22/24 08:50 01/22/24 08:50 Labs: Short CBC 01/18/24 01/19/24 Range/Units 14:03 05:08 WBC 7.8 9.2 (3.8-10.6) Thou/mm3 Hgb 11.0 L 11.2 L (13.5-16.0) g/dL Hct 34.9 L 37.1 L (41.0-53.0) % Plt Count 149 143 (140-440) Thou/mm3 BMP 01/18/24 01/19/24 14:03 05:08 Sodium 134 L 135 L Potassium 4.7 5.1 Chloride 101 100 Carbon Dioxide 26.3 28.1 BUN 27 H 26 H Creatinine 3.5 H 4.0 H D Glucose 95 88 Calcium 9.4 9.3 Liver Function 01/18/24 01/19/24 Range/Units 14:03 05:08 Total Bilirubin 0.2 L (0.3-1.2) mg/dL AST 10 (0-34) U/L ALT 10 (10-49) U/L Alkaline Phosphatase 140 H (46-116) U/L Albumin 4.0 4.1 (3.5-5.0) gm/dL Urine 01/18/24 Range/Units 12:44 Urine Color [place] A (Lt Yel-Yel) Urine Clarity Turbid A (Clear/Hazy) Urine pH 7.0 (5.0-7.0) Ur Specific [place] 1.007 (1.001-1.035) Urine Protein 3+ A (Neg - Trace) Urine Glucose (UA) Negative (Negative) Quality Measures Quality Measures none Medications Home Medications and Allergies Home Medications ?Medication ?Instructions ?Recorded ?Confirmed ?Type gabapentin 600 mg tablet 600 mg PO TID 03/29/19 01/19/24 History cholestyramine (with sugar) 4 gram 1 ea PO BID 08/24/20 01/19/24 History powder for susp in a packet levothyroxine 25 mcg tablet 25 mcg PO QDAY 08/24/20 01/19/24 History magnesium oxide 400 mg PO BID 08/24/20 01/19/24 History sevelamer carbonate 800 mg tablet 2,400 mg PO TIDWMEAL 08/24/20 01/19/24 History sodium zirconium cyclosilicate 10 10 g PO QDAY 08/24/20 01/19/24 History gram oral powder packet (Lokelma) cinacalcet 30 mg tablet 30 mg PO QDAY 07/10/22 12/26/22 History midodrine 10 mg tablet 10 mg PO TID PRN Hypotension 07/10/22 01/19/24 History omeprazole 40 mg capsule,delayed 40 mg PO QDAY 07/10/22 01/19/24 History release hydrocodone 10 mg-acetaminophen 1 tab PO Q6H PRN Pain (Scale Score 12/26/22 01/19/24 History 325 mg tablet 7-10) sodium bicarbonate 650 mg tablet 650 mg PO BID 12/26/22 01/19/24 History cyclobenzaprine 5 mg tablet 5 mg PO Q8HR PRN Muscle Spasm 01/19/24 01/19/24 History Allergies Allergy/AdvReac Type Severity Reaction Status Date / Time piperacillin [From Zosyn] Allergy Severe Anaphylaxis Verified 01/18/24 12:28 tazobactam [From Zosyn] Allergy Severe Anaphylaxis Verified 01/18/24 12:28 LIZY Inhibitors Allergy Verified 01/18/24 12:28 Penicillins Allergy Anaphylaxis Verified 01/18/24 12:28 Visit Medications Acetaminophen (Acetaminophen 325 Mg Tablet) 650 mg PO Q6H PRN PRN Reason: Fever >101.5 Stop: 02/17/24 15:29 Acetaminophen (Acetaminophen Supp 650 Mg Supp) 650 mg VT Q6H PRN PRN Reason: PAIN SCALE 1-3 (mild Stop: 02/17/24 15:29 Hydrocodone Bitart/Acetaminophen (Hydrocodone/Apap 10/325 Tab) 1 tab PO Q6HR PRN PRN Reason: Pain,severe 7-10 Stop: 01/23/24 22:59 Last Admin: 01/19/24 06:10 Dose: 1 tab Albuterol/Ipratropium (Albuterol/Ipratropium (Duoneb) Rt [place] 3 Ml Nebu) 3 ml INH Q4HRRT PRN PRN Reason: SHORTNESS OF BREATH OR WHEEZE Stop: 02/18/24 06:59 Last Admin: 01/19/24 10:52 Dose: 3 ml Cyclobenzaprine HCl (Cyclobenzaprine 5 Mg Tablet) 5 mg PO Q8HR PRN PRN Reason: Muscle Spasm Stop: 02/18/24 08:39 Doxycycline Hyclate (Doxycycline 100 Mg Tablet) 100 mg PO BID [facility] Stop: 01/25/24 20:59 Last Admin: 01/18/24 20:05 Dose: 100 mg Gabapentin (Gabapentin 300 Mg Capsule) 600 mg PO TID [facility] Stop: 02/18/24 05:59 Last Admin: 01/19/24 06:04 Dose: Not Given Guaifenesin/Dextromethorphan (Guaifenesin/Dm Tablet) 1 each PO BID PRN PRN Reason: COUGH Stop: 02/17/24 23:38 Meropenem 1,000 mg/ Sodium (Chloride) 50 mls @ 100 mls/hr IV QDAY [facility] Stop: 01/25/24 17:44 Last Infusion: 01/18/24 19:14 Dose: Infused Levothyroxine Sodium (Levothyroxine Sodium 25 Mcg Tablet) 25 mcg PO ACBR FOREIGN Stop: 02/18/24 05:59 Last Admin: 01/19/24 06:01 Dose: 25 mcg Ondansetron HCl (Ondansetron Inj 2 Mg/Ml Inj 2 Ml) 4 mg IV Q6H PRN; Protocol PRN Reason: NAUSEA OR VOMITING Stop: 02/17/24 15:29 Pantoprazole Sodium (Pantoprazole 40 Mg Tablet) 40 mg PO QDAY [facility] Stop: 02/18/24 08:59 Sennosides (Senna Tablet) 1 tab PO QDAY [facility]; Protocol Stop: 02/18/24 08:59 Sevelamer Carbonate (Sevelamer Carbonate 800 Mg Tablet) 800 mg PO TIDWM [facility] Stop: 02/18/24 07:59 Last Admin: 01/19/24 09:39 Dose: Not Given Sodium Bicarbonate (Sodium Bicarbonate 650 Mg Tablet) 650 mg PO BID [facility] Stop: 02/18/24 08:59 Sodium Chloride (Sodium Chloride Rt [place] 0.9% 3 Ml Nebu) 3 ml INH PRN PRN PRN Reason: SOLN Stop: 02/17/24 15:29 Last Admin: 01/18/24 18:26 Dose: 3 ml Discontinued Medications Hydrocodone Bitart/Acetaminophen (Hydrocodone/Apap 5/325 Tablet) 1 tab PO X1 ONE Stop: 01/18/24 12:27 Last Admin: 01/18/24 12:39 Dose: 1 tab Albuterol (Albuterol Rt 2.5 Mg/0.5 Ml Nebu) 2.5 mg INH Q6HRRT FOREIGN Stop: 02/17/24 18:59 Last Admin: 01/18/24 18:26 Dose: 2.5 mg Alprazolam (Alprazolam 0.25 Mg Tablet) 0.25 mg PO X1 ONE Stop: 01/18/24 23:40 Last Admin: 01/18/24 23:57 Dose: 0.25 mg Furosemide (Furosemide 20 Mg Tablet) 20 mg PO X1 ONE Stop: 01/19/24 08:02 Ceftriaxone Sodium/Dextrose (Rocephin/D5w 1gm Iv Premix) 50 mls @ 100 mls/hr IV QDAY FOREIGN Stop: 01/25/24 16:21 Last Admin: 01/18/24 17:25 Dose: Not Given Oxycodone/Acetaminophen (Oxycodone/Apap 5/325 Tablet) 2 tab PO Q6H PRN PRN Reason: Pain Scale 4-10 (Moderate Stop: 01/23/24 15:40 Last Admin: 01/18/24 19:57 Dose: 2 tab Pantoprazole Sodium (Pantoprazole 40 Mg Tablet) 40 mg PO QDAY [facility] Stop: 02/18/24 08:59 Sodium Polystyrene Sulfonate (Sod Polystyrene Sulfon Susp 15 Gm/60 Ml Btl) 30 gm PO X1 ONE Stop: 01/19/24 07:34 Assessment & Plan Plan Patient is a 33-year-old male with a past medical history of paraplegia since the age of 13 (intubation scar noted on his chest), ESRD on Dialysis (Friday), recurrent nephrolithiasis, history of pyelonephritis, and hx catheter associated complicated urinary tract infections, history of abdominal wall necrotizing fasciitis post skin graft, s/p ileostomy. Admitted on (01/18/2024) catheter associated complicated urinary tract infection and gross hematuria. #ESDR on Dialysis (Friday and Friday) #Electrolyte Disturances Etiology: difficult to determine if patient has secondary underlying conditions such diabetes. Patient has numerous bilateral renal calculi and indwelling brody catheter use puts patients at increased for calculi stones, specifically Struvite stones. DDx: No known history of diabetes or other intrinsic kidney disease. Diagnostics: -Ct Abdomen/Pelvis: Significant bilateral renal parenchymal scar formation, numerous bilateral renal calculi Plan: -Dialysis today, goal: Ultrafiltration goal of 2 Liters as tolerated, 3 hrs, 2K/2.5 Ca -Sodium Bicarbonate 650 PO BID -Sevelamer 800 PO TID WM -Renal dose medication -avoid nephrotoxicity #Catheter associated complicated, urinary tract infection #hx of nephrolithiasis & pyelonephritis #Paraplegia #hypotension #hyppthyroidism Health Maintenance: Disp: Pt is currently admitted to floors for further management of catheter associated, complicated, uninary tract infection, awaiting improved urinary systoms FEN: Renal Diet DVT: on subQ heparin GI: Pantoprazole 40 PO QDay Lines: Brody catheter, and peripheral lines Code: Full Code - The patient's plan was discussed with attending Dr. Gavin Briones MD PGY1 Internal Medicine Attending Provider Attestation/Addendum Pt is seen and examined. Labs are reviewed. Agree with assessment and plan. Fransisco Alonso MD
--- NOTE | 2024-01-19 11:18 | ESHP_ITS ---
Documentation for date of: 01/18/24 HPI History of Present Illness History of present illness: 33 year old male PMHx paraplegia since age 13, ESRD on HD since 2019, recurrent nephrolithiasis w/ UTI and pyelonephritis, tunneled catheter with MRSA infection, abdominal necrotizing fasciitis s/p extensive skin graft, s/p ileostomy presented to ED with hematuria x 1 day. Notably he visited the ED november 2023 for UTI and was discharged on bactrim, subsequent cultures showed that he had multidrug resistant infection with klebsiella, pseudomonas, e coli. Pt states he has not had visible blood in his urine for a few years. He reports that he does not feel like he has a fever, malaise , or chills, but does note that he feels weak. Pt states that he takes norco 10 around the clock every 4-5 hours for pain. He has no pubic or abdominal pain due to his SCI. He has a chronic indwelling catheter which he notes is changed every 3 weeks, and he gets HD every friday and friday. PMH: paraplegic since age 13, ESRD with HD, recurrent nephrolithiasis, recurrent UTI, MRSA infection, PSHx: left IJ cath placement for HD Allergies: zosyn-anaphylaxis, penicillin, AceI Social history: -Smoking: cigarettes 10 pack year history -Alcohol Use: none -Illicit Drug Use: marijuana but says he stopped recently -Occupation:unemployed -lives : with family Family History:none noted Review of Systems Review of Systems Narrative Review of Systems: ROS: -CONSTITUTIONAL: Denies weight loss, fever and chills. -HEENT: Denies changes in vision and hearing. -RESPIRATORY: endorses SOB and denies cough. -CV: Denies palpitations and Chest Pain. -GI: Denies abdominal pain, nausea, vomiting,constipation and diarrhea. -: Denies dysuria and urinary frequency. -MSK: Denies myalgia and joint pain. -SKIN: Denies rash and pruritus. -NEUROLOGICAL: Denies headache and syncope. Exam Vital Signs Temp Pulse Resp BP Pulse Ox O2 Del Method O2 Flow Rate 97.7 F 85 24 H 127/79 96 Nasal Cannula 5 01/19/24 08:21 01/19/24 11:15 01/19/24 11:13 01/19/24 11:15 01/19/24 11:13 01/19/24 08:00 01/19/24 08:21 FiO2 35 01/19/24 11:13 Narrative Exam Physical Exam General: Awake and in no acute distress. Conversational and non-toxic appearing. HEENT: Normocephalic, atraumatic, mucous membranes moist. Heart: Regular rate and rhythm, no murmurs, rubs or gallops. Lungs: Clear to auscultation with no wheezing , course breath sounds bilaterally, no crackles appreciated Abdomen: Soft, distended due to body habitus, nontender, positive bowel sounds. ?No guarding or rebound tenderness. ileostomy back with dark drainage Neurologic: Alert and oriented x3, atrophied legs, paraplegic unable to move, Extremities: No edema, pedal pulse 2+ Skin: No rash or ecchymoses. Results: Labs 01/19/24 05:08 01/19/24 05:08 Labs: Short CBC 01/18/24 01/19/24 Range/Units 14:03 05:08 WBC 7.8 9.2 (3.8-10.6) Thou/mm3 Hgb 11.0 L 11.2 L (13.5-16.0) g/dL Hct 34.9 L 37.1 L (41.0-53.0) % Plt Count 149 143 (140-440) Thou/mm3 BMP 01/18/24 01/19/24 14:03 05:08 Sodium 134 L 135 L Potassium 4.7 5.1 Chloride 101 100 Carbon Dioxide 26.3 28.1 BUN 27 H 26 H Creatinine 3.5 H 4.0 H D Glucose 95 88 Calcium 9.4 9.3 Liver Function 01/18/24 01/19/24 Range/Units 14:03 05:08 Total Bilirubin 0.2 L (0.3-1.2) mg/dL AST 10 (0-34) U/L ALT 10 (10-49) U/L Alkaline Phosphatase 140 H (46-116) U/L Albumin 4.0 4.1 (3.5-5.0) gm/dL Urine 01/18/24 Range/Units 12:44 Urine Color [place] A (Lt Yel-Yel) Urine Clarity Turbid A (Clear/Hazy) Urine pH 7.0 (5.0-7.0) Ur Specific [place] 1.007 (1.001-1.035) Urine Protein 3+ A (Neg - Trace) Urine Glucose (UA) Negative (Negative) Quality Measures Quality Measures none Medications Home Medications and Allergies Home Medications ?Medication ?Instructions ?Recorded ?Confirmed ?Type gabapentin 600 mg tablet 600 mg PO TID 03/29/19 12/26/22 History cholestyramine (with sugar) 4 gram 1 ea PO BID 08/24/20 12/26/22 History powder for susp in a packet levothyroxine 25 mcg tablet 25 mcg PO QDAY 08/24/20 01/19/24 History magnesium oxide 400 mg PO BID 08/24/20 12/26/22 History sevelamer carbonate 800 mg tablet 2,400 mg PO TIDWMEAL 08/24/20 12/26/22 History sodium zirconium cyclosilicate 10 10 g PO QDAY 08/24/20 01/19/24 History gram oral powder packet (Lokelma) cinacalcet 30 mg tablet 30 mg PO QDAY 07/10/22 12/26/22 History midodrine 10 mg tablet 10 mg PO TID PRN Hypotension 07/10/22 12/26/22 History omeprazole 40 mg capsule,delayed 40 mg PO QDAY 07/10/22 12/26/22 History release hydrocodone 10 mg-acetaminophen 1 tab PO Q6H PRN Pain (Scale Score 12/26/22 12/26/22 History 325 mg tablet 7-10) sodium bicarbonate 650 mg tablet 650 mg PO BID 12/26/22 12/26/22 History cyclobenzaprine 5 mg tablet 5 mg PO Q8HR PRN Muscle Spasm 01/19/24 01/19/24 History Allergies Allergy/AdvReac Type Severity Reaction Status Date / Time piperacillin [From Zosyn] Allergy Severe Anaphylaxis Verified 01/18/24 12:28 tazobactam [From Zosyn] Allergy Severe Anaphylaxis Verified 01/18/24 12:28 LIZY Inhibitors Allergy Verified 01/18/24 12:28 Penicillins Allergy Anaphylaxis Verified 01/18/24 12:28 Visit Medications Acetaminophen (Acetaminophen 325 Mg Tablet) 650 mg PO Q6H PRN PRN Reason: Fever >101.5 Stop: 02/17/24 15:29 Acetaminophen (Acetaminophen Supp 650 Mg Supp) 650 mg ND Q6H PRN PRN Reason: PAIN SCALE 1-3 (mild Stop: 02/17/24 15:29 Hydrocodone Bitart/Acetaminophen (Hydrocodone/Apap 10/325 Tab) 1 tab PO Q6HR PRN PRN Reason: Pain,severe 7-10 Stop: 01/23/24 22:59 Last Admin: 01/19/24 06:10 Dose: 1 tab Albuterol/Ipratropium (Albuterol/Ipratropium (Duoneb) Rt Lashaun 3 Ml Nebu) 3 ml INH Q4HRRT PRN PRN Reason: SHORTNESS OF BREATH OR WHEEZE Stop: 02/18/24 06:59 Last Admin: 01/19/24 10:52 Dose: 3 ml Cyclobenzaprine HCl (Cyclobenzaprine 5 Mg Tablet) 5 mg PO Q8HR PRN PRN Reason: Muscle Spasm Stop: 02/18/24 08:39 Doxycycline Hyclate (Doxycycline 100 Mg Tablet) 100 mg PO BID [facility] Stop: 01/25/24 20:59 Last Admin: 01/18/24 20:05 Dose: 100 mg Gabapentin (Gabapentin 300 Mg Capsule) 600 mg PO TID [facility] Stop: 02/18/24 05:59 Last Admin: 01/19/24 06:04 Dose: Not Given Guaifenesin/Dextromethorphan (Guaifenesin/Dm Tablet) 1 each PO BID PRN PRN Reason: COUGH Stop: 02/17/24 23:38 Meropenem 1,000 mg/ Sodium (Chloride) 50 mls @ 100 mls/hr IV QDAY [facility] Stop: 01/25/24 17:44 Last Infusion: 01/18/24 19:14 Dose: Infused Levothyroxine Sodium (Levothyroxine Sodium 25 Mcg Tablet) 25 mcg PO ACBR [facility] Stop: 02/18/24 05:59 Last Admin: 01/19/24 06:01 Dose: 25 mcg Ondansetron HCl (Ondansetron Inj 2 Mg/Ml Inj 2 Ml) 4 mg IV Q6H PRN; Protocol PRN Reason: NAUSEA OR VOMITING Stop: 02/17/24 15:29 Pantoprazole Sodium (Pantoprazole 40 Mg Tablet) 40 mg PO QDAY [facility] Stop: 02/18/24 08:59 Sennosides (Senna Tablet) 1 tab PO QDAY [facility]; Protocol Stop: 02/18/24 08:59 Sevelamer Carbonate (Sevelamer Carbonate 800 Mg Tablet) 800 mg PO TIDWM [facility] Stop: 02/18/24 07:59 Last Admin: 01/19/24 09:39 Dose: Not Given Sodium Bicarbonate (Sodium Bicarbonate 650 Mg Tablet) 650 mg PO BID [facility] Stop: 02/18/24 08:59 Sodium Chloride (Sodium Chloride Rt Lashaun 0.9% 3 Ml Nebu) 3 ml INH PRN PRN PRN Reason: SOLN Stop: 02/17/24 15:29 Last Admin: 01/18/24 18:26 Dose: 3 ml Discontinued Medications Hydrocodone Bitart/Acetaminophen (Hydrocodone/Apap 5/325 Tablet) 1 tab PO X1 ONE Stop: 01/18/24 12:27 Last Admin: 01/18/24 12:39 Dose: 1 tab Albuterol (Albuterol Rt 2.5 Mg/0.5 Ml Nebu) 2.5 mg INH Q6HRRT [facility] Stop: 02/17/24 18:59 Last Admin: 01/18/24 18:26 Dose: 2.5 mg Alprazolam (Alprazolam 0.25 Mg Tablet) 0.25 mg PO X1 ONE Stop: 01/18/24 23:40 Last Admin: 01/18/24 23:57 Dose: 0.25 mg Furosemide (Furosemide 20 Mg Tablet) 20 mg PO X1 ONE Stop: 01/19/24 08:02 Ceftriaxone Sodium/Dextrose (Rocephin/D5w 1gm Iv Premix) 50 mls @ 100 mls/hr IV QDAY [facility] Stop: 01/25/24 16:21 Last Admin: 01/18/24 17:25 Dose: Not Given Oxycodone/Acetaminophen (Oxycodone/Apap 5/325 Tablet) 2 tab PO Q6H PRN PRN Reason: Pain Scale 4-10 (Moderate Stop: 01/23/24 15:40 Last Admin: 01/18/24 19:57 Dose: 2 tab Pantoprazole Sodium (Pantoprazole 40 Mg Tablet) 40 mg PO QDAY [facility] Stop: 02/18/24 08:59 Sodium Polystyrene Sulfonate (Sod Polystyrene Sulfon Susp 15 Gm/60 Ml Btl) 30 gm PO X1 ONE Stop: 01/19/24 07:34 Assessment & Plan Problem List (1) Urinary tract infection: Status: Acute (2) Hematuria: Status: Acute (3) Renal calculus, bilateral: Status: Acute (4) ESRD (end stage renal disease): Status: Acute (5) Paraplegia: Status: Acute (6) Hypotension: Status: Acute (7) MRSA (methicillin resistant staph aureus) culture positive: Status: Acute (8) Colonization with multidrug-resistant bacteria: Status: Acute Assessment 33 year old male PMHx paraplegia since age 13, ESRD on HD since 2019, recurrent nephrolithiasis w/ UTI and pyelonephritis, tunneled catheter with MRSA infection, abdominal necrotizing fasciitis s/p extensive skin graft, s/p ileostomy presented to ED with hematuria x 1 day. Notably he visited the ED november 2023 for UTI and was discharged on bactrim, subsequent cultures showed that he had multidrug resistant infection with klebsiella, pseudomonas, e coli. Arrived to ED afebrile, non toxic appearing with normal WBC, tachycardic at 101, chronically high creatinine of 3.5 BUN 27. UA with 3+ blood and suggestive of UTI , CT A/P showed no hydronephrosis, but with bilateral renal calculi, and cystitis. Due to history of MDR bacteria, and hematuria patient is being admitted to obs for IV antibiotic treatment , consult to nephro for HD and ID. Plan Plan #UTI #Bilateral Renal Calculi #Hematuria History of recurrent UTI and calculi, most recently in november was discharged on bactrim. previous culture showed MDR klebisella, pseudomonas, e.coli. does not meet sepsis criteria, 1/4 SIRS, non toxic appearing. UA with 3+ blood and suggestive of UTI , CT A/P showed no hydronephrosis, but with bilateral renal calculi, and cystitis. plan: - admit to observation - consult ID - Start on doxycycline 100mg po BID , Ceftriaxone for now , spoke w pharmacy - CBC/ Renal panel - oxycodone q6for pain #ESRD on HD since 2018 IJ cath placed in 2019 creatinine 3.5, BUN 27 HD fri and friday under Dr. Jfef plan: - consult nephrology - sodium bicarb 650 po BID - sevelamer 2400mg po TID - cincalcet 30 mg po daily - lokelma 10g po daily - MG Oxide 400mg PO BID #Paraplegia #Hypotension #chronic thoracic pain since age 13 , SCI T5-T6 s/p laminectomy and fusion plan: - continue gabapentin 600mg TID - Midodrine 10mg prn - oxycodone q6 - cyclobenzaprine 5mg po BID #hypothyroidism TSH 1.62 12/2022 plan: - continue home levothyroxine 25mcg Case discussed in detail with attending Dr. Bolden Attending Provider Attestation/Addendum I have discussed and was present for the essential components of the history, physical examination, diagnosis, and treatment plan with the resident. I agree with the patient's care as documented by the resident and amended herein by me. Moises Bolden, DO. Patient seen and evaluated in the ED. 33-year-old male with significant past medical history of paraplegia, ESRD on HD secondary to nephrolithiasis, previous episodes of pyelonephritis, abdominal necrotizing fasciitis, ileostomy, and neurogenic bladder, presented to the ED with complaints of hematuria. Patient subsequently noted to have pneumonia on initial chest x-ray in the left base and lingular segment of the left upper lobe. Initial CT abdomen and pelvis demonstrated numerous bilateral renal calculi however no hydronephrosis noted. Thickening of the bladder wall also noted indicative of cystitis. Patient admitted for complicated UTI, hematuria and pneumonia. Upon arrival, vital signs are stable, patient afebrile, patient initially on nasal cannula, 2 L, SpO2 98%. Significant labs on arrival demonstrated WBC of 7.8, BUN 27, creatinine 3.5. UA was positive for 3+ blood, 2116 WBCs, leuk esterase and nitrite positive however no bacteria seen. RBCs were noted to be 178. Chest x- ray findings as above as well as CTAP. At this time, due to the patient's history of allergic reactions to penicillins, will start meropenem and doxycycline for pneumonia and UTI, infectious disease consulted, nephrology consulted for routine dialysis, will restart the patient's home meds as appropriate and follow-up with urine cultures, tailoring antibiotics as necessary. I suspect that the patient does have some colonization, in November 2023, he tested positive for MDRO E. coli and Klebsiella, December 2022 urine culture demonstrated ESBL E. coli in December 2020, MDRO Pseudomonas, Klebsiella and ESBL E. coli was noted. Will continue to follow closely with present urine cultures, likely discharge in 1 to 2 days. Although this document has been carefully reviewed, there may still be some phonetic and other typographical errors. These errors are purely grammatical due to imperfections in the software program and should not be construed in any way to compromise the substance of the patient's medical care during this visit.
--- NOTE | 2024-01-19 11:42 | PD.RESPRO ---
Documentation for date of: 01/19/24 Subjective Subjective Interval history: Overnight patient was feeling anxious and received some xanax to keep him calm. Patient was seen at bedside this morning, was very sedated while preparing for HD today. Patient reports no new symptoms but was difficult to rouse. Exam Vital Signs Temp Pulse Resp BP Pulse Ox O2 Del Method O2 Flow Rate 97.7 F 85 24 H 127/79 96 Nasal Cannula 5 01/19/24 08:21 01/19/24 11:15 01/19/24 11:13 01/19/24 11:15 01/19/24 11:13 01/19/24 08:00 01/19/24 08:21 FiO2 35 01/19/24 11:13 Narrative Exam Physical Exam General: Awake and in no acute distress. Very sedated and non-toxic appearing. HEENT: Normocephalic, atraumatic, mucous membranes moist. Heart: Regular rate and rhythm, no murmurs, rubs or gallops. Lungs: no wheezing , course breath sounds bilaterally, Abdomen: Soft, distended due to body habitus, nontender, positive bowel sounds. ?No guarding or rebound tenderness. ileostomy back with dark drainage Neurologic: Alert and oriented x3, atrophied legs, paraplegic unable to move, Extremities: No edema, pedal pulse 2+ Skin: No rash or ecchymoses. Objective Labs 01/19/24 05:08 01/19/24 05:08 Labs: Laboratory Results - last 24 hr 01/18/24 01/18/24 01/19/24 12:44 14:03 05:05 WBC 7.8 RBC 3.27 L Hgb 11.0 L Hct 34.9 L MCV 107 H MCH 33.6 MCHC 31.5 RDW Std Deviation 52.6 H Plt Count 149 Neut % (Auto) 76 Lymph % (Auto) 10 [place] % (Auto) 10 Eos % (Auto) 2 Baso % (Auto) 1 Neut # (Auto) 6.0 Lymph # (Auto) 0.8 L [place] # (Auto) 0.8 Eos # (Auto) 0.2 Baso # (Auto) 0.1 Immature Gran # (Auto) 0.03 H Absolute Nucleated RBC 0.00 Immature Gran % 0 Nucleated RBC % 0 Sodium 134 L Potassium 4.7 Chloride 101 Carbon Dioxide 26.3 Anion Gap 7 BUN 27 H Creatinine 3.5 H Estim Creat Clear Calc 36.2 L eGFR 22 L BUN/Creatinine Ratio 8 L Glucose 95 Calculated Osmolality 273 L Calcium 9.4 Corrected Calcium 9.4 Phosphorus Iron 68 TIBC 253 Iron Saturation 26 Unsat Iron Binding 185 L Ferritin 771 H Total Bilirubin 0.2 L AST 10 ALT 10 Alkaline Phosphatase 140 H B-Natriuretic Peptide Total Protein 7.1 Albumin 4.0 Globulin 3.1 Albumin/Globulin Ratio 1.3 Vitamin B12 355 Folate 12.94 Ur Collection Type Catheter Urine Color [place] A Urine Clarity Turbid A Urine pH 7.0 Ur Specific [place] 1.007 Urine Protein 3+ A Urine Glucose (UA) Negative Urine Ketones Negative Urine Blood 3+ A Urine Nitrite Positive Urine Bilirubin Negative Urine Urobilinogen (Auto) Negative Ur Leukocyte Esterase Positive Urine RBC 178 H Urine WBC 2116 H Ur Squamous Epith Cells 0 Urine Bacteria None 01/19/24 05:08 WBC 9.2 RBC 3.35 L Hgb 11.2 L Hct 37.1 L MCV 111 H MCH 33.4 MCHC 30.2 L RDW Std Deviation 55.0 H Plt Count 143 Neut % (Auto) 78 Lymph % (Auto) 9 L [place] % (Auto) 11 Eos % (Auto) 2 Baso % (Auto) 1 Neut # (Auto) 7.2 Lymph # (Auto) 0.8 L [place] # (Auto) 1.0 H Eos # (Auto) 0.2 Baso # (Auto) 0.1 Immature Gran # (Auto) 0.07 H Absolute Nucleated RBC 0.00 Immature Gran % 1 H Nucleated RBC % 0 Sodium 135 L Potassium 5.1 Chloride 100 Carbon Dioxide 28.1 Anion Gap 7 BUN 26 H Creatinine 4.0 H D Estim Creat Clear Calc 36.1 L eGFR 19 L BUN/Creatinine Ratio 7 L Glucose 88 Calculated Osmolality 273 L Calcium 9.3 Corrected Calcium 9.3 Phosphorus 6.9 H Iron TIBC Iron Saturation Unsat Iron Binding Ferritin Total Bilirubin AST ALT Alkaline Phosphatase B-Natriuretic Peptide 172 H Total Protein Albumin 4.1 Globulin Albumin/Globulin Ratio Vitamin B12 Folate Ur Collection Type Urine Color Urine Clarity Urine pH Ur Specific [place] Urine Protein Urine Glucose (UA) Urine Ketones Urine Blood Urine Nitrite Urine Bilirubin Urine Urobilinogen (Auto) Ur Leukocyte Esterase Urine RBC Urine WBC Ur Squamous Epith Cells Urine Bacteria Quality Measures Quality Measures none Assessment & Plan Assessment Current Active Medications: Generic Name Dose Route Start Last Admin Trade Name Freq PRN Reason Stop Dose Admin Acetaminophen 650 mg 01/18/24 15:30 Acetaminophen 325 Mg Tablet PO 02/17/24 15:29 Q6H PRN Fever >101.5 Acetaminophen 650 mg 01/18/24 15:30 Acetaminophen Supp 650 Mg Supp MS 02/17/24 15:29 Q6H PRN PAIN SCALE 1-3 (mild Hydrocodone Bitart/Acetaminophen 1 tab 01/18/24 23:00 01/19/24 06:10 Hydrocodone/Apap 10/325 Tab PO 01/23/24 22:59 1 tab Q6HR PRN Administration Pain,severe 7-10 Albuterol/Ipratropium 3 ml 01/19/24 03:33 01/19/24 10:52 Albuterol/Ipratropium (Duoneb) Rt Lashaun 3 Ml Nebu INH 02/18/24 06:59 3 ml Q4HRRT PRN Administration SHORTNESS OF BREATH OR WHEEZE Cyclobenzaprine HCl 5 mg 01/19/24 08:40 Cyclobenzaprine 5 Mg Tablet PO 02/18/24 08:39 Q8HR PRN Muscle Spasm Doxycycline Hyclate 100 mg 01/18/24 21:00 01/18/24 20:05 Doxycycline 100 Mg Tablet PO 01/25/24 20:59 100 mg BID FOREIGN Administration Gabapentin 600 mg 01/19/24 06:00 01/19/24 06:04 Gabapentin 300 Mg Capsule PO 02/18/24 05:59 Not Given TID FOREIGN Guaifenesin/Dextromethorphan 1 each 01/18/24 23:39 Guaifenesin/Dm Tablet PO 02/17/24 23:38 BID PRN COUGH Meropenem 1,000 mg/ Sodium 50 mls @ 100 mls/hr 01/18/24 17:45 01/18/24 19:14 Chloride IV 01/25/24 17:44 Infused QDAY FOREIGN Infusion Levothyroxine Sodium 25 mcg 01/19/24 06:00 01/19/24 06:01 Levothyroxine Sodium 25 Mcg Tablet PO 02/18/24 05:59 25 mcg ACBR FOREIGN Administration Ondansetron HCl 4 mg 01/18/24 15:30 Ondansetron Inj 2 Mg/Ml Inj 2 Ml IV 02/17/24 15:29 Q6H PRN NAUSEA OR VOMITING Protocol Pantoprazole Sodium 40 mg 01/19/24 09:00 Pantoprazole 40 Mg Tablet PO 02/18/24 08:59 QDAY FOREIGN Sennosides 1 tab 01/19/24 09:00 Senna Tablet PO 02/18/24 08:59 QDAY [facility] Protocol Sevelamer Carbonate 800 mg 01/19/24 08:00 01/19/24 09:39 Sevelamer Carbonate 800 Mg Tablet PO 02/18/24 07:59 Not Given TIDWM FOREIGN Sodium Bicarbonate 650 mg 01/19/24 09:00 Sodium Bicarbonate 650 Mg Tablet PO 02/18/24 08:59 BID FOREIGN Sodium Chloride 3 ml 01/18/24 15:30 01/18/24 18:26 Sodium Chloride Rt Lashaun 0.9% 3 Ml Nebu INH 02/17/24 15:29 3 ml PRN PRN Administration SOLN Additional Assessment: 33 year old male PMHx paraplegia since age 13, ESRD on HD since 2019, recurrent nephrolithiasis w/ UTI and pyelonephritis, tunneled catheter with MRSA infection, abdominal necrotizing fasciitis s/p extensive skin graft, s/p ileostomy presented to ED with hematuria x 1 day. Notably he visited the ED november 2023 for UTI and was discharged on bactrim, subsequent cultures showed that he had multidrug resistant infection with klebsiella, pseudomonas, e coli. Arrived to ED afebrile, non toxic appearing with normal WBC, tachycardic at 101, chronically high creatinine of 3.5 BUN 27. UA with 3+ blood and suggestive of UTI , CT A/P showed no hydronephrosis, but with bilateral renal calculi, and cystitis. Due to history of MDR bacteria, and hematuria patient admitted to obs for IV antibiotic treatment. Patient getting HD fri , friday. Following culture. Plan #UTI #Bilateral Renal Calculi #Hematuria History of recurrent UTI and calculi, most recently in november was discharged on bactrim. previous culture showed MDR klebisella, pseudomonas, e.coli. does not meet sepsis criteria, 1/4 SIRS, non toxic appearing. UA with 3+ blood and suggestive of UTI , CT A/P showed no hydronephrosis, but with bilateral renal calculi, and cystitis. plan: - consult ID - follow culture - Stop rocephin, switch to Mereopenum 1g IV (due to hx of allergy/anaphylaxis) - consult on doxycycline 100mg po BID - CBC/ Renal panel - norco q6for pain #ESRD on HD since 2019 IJ cath placed in 2019 creatinine 3.5, BUN 27 HD fri and friday under Dr. Jeff plan: - consult nephrology , HD today (friday) 1.5L - continue home meds as listed - sodium bicarb 650 po BID - sevelamer 2400mg po TID - cincalcet 30 mg po daily - lokelma 10g po daily - MG Oxide 400mg PO BID #Abnormal chest xray pulmonary edema or infiltrate with hilar widening seen , possible cardiomegaly although unable to appreciate on AP cxr. etiology considered include pneumonia, chf , cardiomegaly, hilar tumor no crackles appreciated on exam, BNP 172, no wbc , no fever or malaise. on abx for UTI plan: - CT chest non contrast #Paraplegia #Hypotension #chronic thoracic pain since age 13 , SCI T5-T6 s/p laminectomy and fusion plan: - continue gabapentin 600mg TID - home Midodrine 10mg prn - norco q6 - cyclobenzaprine 5mg po BID #hypothyroidism TSH 1.62 12/2022 plan: - continue home levothyroxine 25mcg Case discussed in detail with attending Dr. Bolden Attending Provider Attestation/Addendum I have discussed and was present for the essential components of the history, physical examination, diagnosis, and treatment plan with the resident. I agree with the patient's care as documented by the resident and amended herein by me. Moises Bolden, DO. Patient seen and evaluated this AM. Patient seen during dialysis this morning, apparently unable to tolerate BiPAP which is ordered as needed last night. Pulse 103, respiratory rate 28 patient afebrile overnight. Patient presently on 5 L, SpO2 97%. Significant labs this morning include a hemoglobin 11.2, MCV 111, BUN 26, creatinine 4.0 and phosphorus 6.9. Sodium 135 and potassium 5.1. Patient is not hemodialysis session today, infectious disease consulted, urine cultures pending, will restart home meds as appropriate, chest CT ordered to rule out possible mass that was suspected on initial chest x-ray, will follow-up with iron panel and will continue doxycycline/meropenem for urinary tract infection and pneumonia. Will continue to monitor closely Although this document has been carefully reviewed, there may still be some phonetic and other typographical errors. These errors are purely grammatical due to imperfections in the software program and should not be construed in any way to compromise the substance of the patient's medical care during this visit.
[2024-01-19] MEDS: SENNA TABLET 1 TAB PO (12:14)
[2024-01-19] MEDS: SEVELAMER CARBONATE 800 MG TABLET PO ×2 (12:14→17:31)
[2024-01-19] MEDS: PANTOPRAZOLE 40 MG TABLET PO (12:14)
[2024-01-19] MEDS: DOXYCYCLINE 100 MG TABLET PO ×2 (12:15→21:47)
[2024-01-19] MEDS: SOD POLYSTYRENE SULFON SUSP 15 GM/60 ML BTL 30 GM PO (12:16)
[2024-01-19] MEDS: MEROPENEM INJ 1,000 MG in SODIUM CHLORIDE 0.9% (P) 50 ML 100 MG IV (12:19)
[2024-01-19] MEDS: CYCLObenzaPRINE 5 MG TABLET PO ×2 (12:37→21:46)
--- NOTE | 2024-01-19 13:02 | PC.NURSE ---
Pt returned from dialysis , 1.5L removed during treatment. This Rn entered patients room and attempted to give education on what medications he needed to take. Patient became upset and stated that he needed his orange powder from his bag. Patient educated that this rn would need to just call the dr to get an order for the cholestyramine powder and then he can receive the dose. Patient then stated that nursing staff is fucking stupid . Patient then said i want norco, flexeril and neurontin . Patient educated that he can get flerexil and norco now and the neurontin is scheduled for 1400. Patient then called his family and said nursing staff is refusing to give me my meds, no one here knows what the fuck they are doing . Patient re educated that once order is received from the dr he would be able to restart home meds. Patient continued to curse at nursing staff. Patient educated that that behavior is not appropriate and staff are not here to be verbally abused. Patient Brother then called and spoke with this rn and stated if patient cannot get cholestyramine powder he will sign the patient out ama and take him to another hospital. Family was educated that this rn had called the provider and got an order to restart the medication. Patients brother stated he would come in and give him the medication if needed to. Educated that that is not allowed. Family re educated that medication isnt being withheld from patient, an order was needed first and was in the process of being placed. Patient received his pain medication and stated that everything was going to come back out since he didnt get the powder. He was told if he didnt want the pain meds that he asked for he could give them back. Patient then took them and stated that this rn called him a liar. Pt educated that this rn did not call him a liar. Patient refused to put bipap back on, when asked if he would wear it patient stated fuck no . Provider called for orders.
[2024-01-19] MEDS: CHOLESTYRAMINE/SUCROSE 1 PKT EA PO ×2 (13:13→21:40)
[2024-01-19] MEDS: GABAPENTIN 300 MG CAPSULE 600 MG PO ×2 (13:54→21:47)
--- NOTE | 2024-01-19 15:29 | PC.NURSE ---
Patients brother Paul Matson called this rn and stated that patient called him to let him know that nursing staff has the order incorrect for his medications. Per the brother the patient called him and stated that he is supposed to receive the cholestyramine powder and then pain medications. This rn educated family again that the patient did not have an order for the powder at the time he requested pain medications and when they were brought to the room the patient stated that he would take them any way. Patient received cholestyramine powder as soon as the order was verified. Family was re educated that the powder has been ordered bid and the patient would receive it at 0900 and 2100, and that the patient was also informed of this. Patient was not receptive to education
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
--- NOTE | 2024-01-19 16:12 | PC.SS ---
rounding note: wait for urine culture;
--- NOTE | 2024-01-19 17:40 | PC.NURSE ---
Pt states he takes 2400mg of sevelamer tidwm. Pt is upset that current order is 800mg. Educated patient that this rn can call provider to get order changed. New orders received for 2400mg tidwm
[2024-01-19] MEDS: SEVELAMER CARBONATE 800 MG TABLET 2400 MG PO (17:44)
[2024-01-19] MEDS: MELATONIN 3 MG TABLET PO (21:47)
[2024-01-19] MEDS: SODIUM BICARBONATE 650 MG TABLET PO (21:47)
[2024-01-20] VITALS (12 sets, daily range): BP systolic 115–162; BP diastolic 69–96; PULSE 95–109; RESP 14–29; TEMP 36.1–36.8; O2SAT 92–100; BMI 31.4
--- NOTE | 2024-01-20 03:30 | PC.NURSE ---
Pt removed BIPAP and refused to let KENIA Farah put it back. KENIA Farah turned off BIPAP and put patient on nasal cannula.
[2024-01-20 05:34] LABS: Basophils % (Auto) 1 % (0-2.5); Eosinophils # (Auto) 0.1 Thou/mm3 (0.0-0.5); Eosinophils % (Auto) 2 % (0-10); Hematocrit 38.3 % (41.0-53.0); Hemoglobin 11.4 g/dL (13.5-16.0); Immature Granulocytes % (Auto) 1 % (0-0); Immature Granulocytes Auto 0.07 Thou/mm3 (0.00-0.00); Lymphocytes # (Auto) 0.6 Thou/mm3 (1.0-4.8); Lymphocytes % (Auto) 9 % (10-50); Mean Corpuscular HGB Conc 29.8 g/dl (31.0-37.0); Mean Corpuscular Hemoglobin 32.6 pg (25.0-35.0); Mean Corpuscular Volume 109 fL (80-100); Monocytes # (Auto) 0.8 Thou/mm3 (0.0-0.8); Monocytes % (Auto) 11 % (0-12); Neutrophils # (Auto) 5.7 Thou/mm3 (1.8-7.7); Neutrophils % (Auto) 77 % (37-80); Nucleated Red Blood Cell % 0 /100 WBC (0); Platelet Count 86 Thou/mm3 (140-440); RDW Standard Deviation 55.4 fL (35.1-43.9); White Blood Count 7.4 Thou/mm3 (3.8-10.6)
[2024-01-20] MEDS: LEVOTHYROXINE SODIUM 25 MCG TABLET PO (05:38)
[2024-01-20] MEDS: GABAPENTIN 300 MG CAPSULE 600 MG PO ×3 (05:38→20:48)
[2024-01-20 06:13] LABS: Albumin, Serum 4.3 gm/dL (3.5-5.0); Anion Gap 7 (7-16); BUN/Creatinine Ratio 6 Ratio (12-20); Blood Urea Nitrogen 22 mg/dL (9-23); Calcium 9.6 mg/dL (8.3-10.6); Calcium (Corrected) 9.6 mg/dL (8.5-10.1); Carbon Dioxide 26.9 mMol/L (20.0-31.0); Chloride 98 mMol/L (98-107); Creatinine (Component) 3.6 mg/dL (0.6-1.3); Estimated Creatinine Clearance 40.1 mL/min (>60); Glucose 97 mg/dL (74-106); Osmolality,Calculated 267 (275-295); Phosphorous 5.1 mg/dL (2.4-5.1); Potassium 4.5 mMol/L (3.4-5.1); Sodium 132 mMol/L (136-145); eGFR 22 See Note
--- NOTE | 2024-01-20 07:31 | PD.IDPROG ---
Subjective Subjective Interval history: hx as noted. not seen. cx pending. rx empirical. not sure why doxy and merrem. allergies limiting but cephs likely ok Exam Vital Signs Temp Pulse Resp BP Pulse Ox O2 Del Method O2 Flow Rate 98.2 F 105 H 20 130/86 H 100 Nasal Cannula 4 01/20/24 04:00 01/20/24 06:00 01/20/24 06:00 01/20/24 04:00 01/20/24 06:00 01/20/24 04:00 01/20/24 06:00 FiO2 35 01/20/24 02:39 Objective - Internal Medicine Labs 01/20/24 04:33 01/20/24 04:33 Labs: Laboratory Results - last 24 hr 01/19/24 01/19/24 01/20/24 05:05 05:08 04:33 WBC 7.4 RBC 3.50 L Hgb 11.4 L Hct 38.3 L MCV 109 H MCH 32.6 MCHC 29.8 L RDW Std Deviation 55.4 H Plt Count 86 L D Neut % (Auto) 77 Lymph % (Auto) 9 L [place] % (Auto) 11 Eos % (Auto) 2 Baso % (Auto) 1 Neut # (Auto) 5.7 Lymph # (Auto) 0.6 L [place] # (Auto) 0.8 Eos # (Auto) 0.1 Baso # (Auto) 0.0 Immature Gran # (Auto) 0.07 H Absolute Nucleated RBC 0.00 Immature Gran % 1 H Nucleated RBC % 0 Sodium 132 L Potassium 4.5 D Chloride 98 Carbon Dioxide 26.9 Anion Gap 7 BUN 22 Creatinine 3.6 H Estim Creat Clear Calc 40.1 L eGFR 22 L BUN/Creatinine Ratio 6 L Glucose 97 Calculated Osmolality 267 L Calcium 9.6 Corrected Calcium 9.6 Phosphorus 5.1 Iron 68 TIBC 253 Iron Saturation 26 Unsat Iron Binding 185 L Ferritin 771 H B-Natriuretic Peptide 172 H Albumin 4.3 Vitamin B12 355 Folate 12.94 Assessment & Plan A&P Narrative hx of uti with abn urinalysis paraplegia with NB/NB pen allergy noted Time Spent With Patient Time: Total time spent is greater than 50% in coordination of care (as documented) at patient's floor/unit and/or counseling patient:
[2024-01-20] MEDS: HYDROcodone/APAP 10/325 TAB PO ×3 (07:53→20:04)
[2024-01-20] MEDS: CHOLESTYRAMINE/SUCROSE 1 PKT EA PO ×2 (08:57→20:06)
[2024-01-20] MEDS: SENNA TABLET 1 TAB PO (08:57)
[2024-01-20] MEDS: MEROPENEM INJ 1,000 MG in SODIUM CHLORIDE 0.9% (P) 50 ML 100 MG IV (08:57)
[2024-01-20] MEDS: PANTOPRAZOLE 40 MG TABLET PO (08:57)
[2024-01-20] MEDS: DOXYCYCLINE 100 MG TABLET PO ×2 (08:57→20:04)
[2024-01-20] MEDS: CYCLObenzaPRINE 5 MG TABLET PO ×2 (08:57→17:34)
[2024-01-20] MEDS: SODIUM BICARBONATE 650 MG TABLET PO ×2 (08:57→20:04)
[2024-01-20] MEDS: SEVELAMER CARBONATE 800 MG TABLET 2400 MG PO ×3 (08:57→17:34)
--- NOTE | 2024-01-20 09:39 | PD.RESCONSUL ---
HPI Data of Consult Requesting Physician: Joey Bolden DO Admitting Provider: Joey Bolden DO Attending Provider: Joey Bolden DO Primary Care Provider: Bryce Bunn MD Consult Narrative cc:: cc: Joey Bolden DO Exam Vital Signs Temp Pulse Resp BP Pulse Ox O2 Del Method O2 Flow Rate 97.5 F 108 H 20 162/96 H 98 Nasal Cannula 4 01/20/24 07:46 01/20/24 07:46 01/20/24 07:46 01/20/24 07:46 01/20/24 07:46 01/20/24 07:46 01/20/24 07:46 FiO2 35 01/20/24 07:46 Results Labs 01/20/24 04:33 01/20/24 04:33 Labs: Short CBC 01/20/24 Range/Units 04:33 WBC 7.4 (3.8-10.6) Thou/mm3 Hgb 11.4 L (13.5-16.0) g/dL Hct 38.3 L (41.0-53.0) % Plt Count 86 L D (140-440) Thou/mm3 BMP 01/20/24 04:33 Sodium 132 L Potassium 4.5 D Chloride 98 Carbon Dioxide 26.9 BUN 22 Creatinine 3.6 H Glucose 97 Calcium 9.6 Liver Function 01/20/24 Range/Units 04:33 Albumin 4.3 (3.5-5.0) gm/dL Quality Measures Quality Measures none Medications Home Medications and Allergies Home Medications ?Medication ?Instructions ?Recorded ?Confirmed ?Type gabapentin 600 mg tablet 600 mg PO TID 03/29/19 01/19/24 History cholestyramine (with sugar) 4 gram 1 ea PO BID 08/24/20 01/19/24 History powder for susp in a packet levothyroxine 25 mcg tablet 25 mcg PO QDAY 08/24/20 01/19/24 History magnesium oxide 400 mg PO BID 08/24/20 01/19/24 History sevelamer carbonate 800 mg tablet 2,400 mg PO TIDWMEAL 08/24/20 01/19/24 History sodium zirconium cyclosilicate 10 10 g PO QDAY 08/24/20 01/19/24 History gram oral powder packet (kelmn) cinacalcet 30 mg tablet 30 mg PO QDAY 07/10/22 12/26/22 History midodrine 10 mg tablet 10 mg PO TID PRN Hypotension 07/10/22 01/19/24 History omeprazole 40 mg capsule,delayed 40 mg PO QDAY 07/10/22 01/19/24 History release hydrocodone 10 mg-acetaminophen 1 tab PO Q6H PRN Pain (Scale Score 12/26/22 01/19/24 History 325 mg tablet 7-10) sodium bicarbonate 650 mg tablet 650 mg PO BID 12/26/22 01/19/24 History cyclobenzaprine 5 mg tablet 5 mg PO Q8HR PRN Muscle Spasm 01/19/24 01/19/24 History Allergies Allergy/AdvReac Type Severity Reaction Status Date / Time piperacillin [From Zosyn] Allergy Severe Anaphylaxis Verified 01/18/24 12:28 tazobactam [From Zosyn] Allergy Severe Anaphylaxis Verified 01/18/24 12:28 LIZY Inhibitors Allergy Verified 01/18/24 12:28 Penicillins Allergy Anaphylaxis Verified 01/18/24 12:28 Visit Medications Acetaminophen (Acetaminophen 325 Mg Tablet) 650 mg PO Q6H PRN PRN Reason: Fever >101.5 Stop: 02/17/24 15:29 Acetaminophen (Acetaminophen Supp 650 Mg Supp) 650 mg IA Q6H PRN PRN Reason: PAIN SCALE 1-3 (mild Stop: 02/17/24 15:29 Hydrocodone Bitart/Acetaminophen (Hydrocodone/Apap 10/325 Tab) 1 tab PO Q6HR PRN PRN Reason: Pain,severe 7-10 Stop: 01/23/24 22:59 Last Admin: 01/20/24 07:53 Dose: 1 tab Albuterol/Ipratropium (Albuterol/Ipratropium (Duoneb) Rt Lashaun 3 Ml Nebu) 3 ml INH Q4HRRT PRN PRN Reason: SHORTNESS OF BREATH OR WHEEZE Stop: 02/18/24 06:59 Last Admin: 01/19/24 10:52 Dose: 3 ml Amlodipine Besylate (Amlodipine Besylate 5 Mg Tablet) 5 mg PO QDAY FOREIGN Stop: 02/19/24 09:14 Cholestyramine Resin (Cholestyramine/Sucrose 1 Pkt Ea) 1 pkt PO BID FOREIGN Stop: 02/18/24 13:14 Last Admin: 01/20/24 08:57 Dose: 1 pkt Cyclobenzaprine HCl (Cyclobenzaprine 5 Mg Tablet) 5 mg PO Q8HR PRN PRN Reason: Muscle Spasm Stop: 02/18/24 08:39 Last Admin: 01/20/24 08:57 Dose: 5 mg Doxycycline Hyclate (Doxycycline 100 Mg Tablet) 100 mg PO BID FOREIGN Stop: 01/25/24 20:59 Last Admin: 01/20/24 08:57 Dose: 100 mg Gabapentin (Gabapentin 300 Mg Capsule) 600 mg PO TID FOREIGN Stop: 02/18/24 05:59 Last Admin: 01/20/24 05:38 Dose: 600 mg Guaifenesin/Dextromethorphan (Guaifenesin/Dm Tablet) 1 each PO BID PRN PRN Reason: COUGH Stop: 02/17/24 23:38 Meropenem 1,000 mg/ Sodium (Chloride) 50 mls @ 100 mls/hr IV QDAY [facility] Stop: 01/25/24 17:44 Last Admin: 01/20/24 08:57 Dose: 100 mls/hr Levothyroxine Sodium (Levothyroxine Sodium 25 Mcg Tablet) 25 mcg PO ACBR FOREIGN Stop: 02/18/24 05:59 Last Admin: 01/20/24 05:38 Dose: 25 mcg Melatonin (Melatonin 3 Mg Tablet) 3 mg PO HS FOREIGN Stop: 02/18/24 20:59 Last Admin: 01/19/24 21:47 Dose: 3 mg Mirtazapine (Mirtazapine 15 Mg Tablet) 15 mg PO HS PRN PRN Reason: AGITATION (SEVERE) Stop: 02/18/24 20:59 Ondansetron HCl (Ondansetron Inj 2 Mg/Ml Inj 2 Ml) 4 mg IV Q6H PRN; Protocol PRN Reason: NAUSEA OR VOMITING Stop: 02/17/24 15:29 Pantoprazole Sodium (Pantoprazole 40 Mg Tablet) 40 mg PO QDAY [facility] Stop: 02/18/24 08:59 Last Admin: 01/20/24 08:57 Dose: 40 mg Sennosides (Senna Tablet) 1 tab PO QDAY [facility]; Protocol Stop: 02/18/24 08:59 Last Admin: 01/20/24 08:57 Dose: 1 tab Sevelamer Carbonate (Sevelamer Carbonate 800 Mg Tablet) 2,400 mg PO TIDWM [facility] Stop: 02/18/24 17:44 Last Admin: 01/20/24 08:57 Dose: 2,400 mg Sodium Bicarbonate (Sodium Bicarbonate 650 Mg Tablet) 650 mg PO BID [facility] Stop: 02/18/24 08:59 Last Admin: 01/20/24 08:57 Dose: 650 mg Sodium Chloride (Sodium Chloride Rt Lashaun 0.9% 3 Ml Nebu) 3 ml INH PRN PRN PRN Reason: SOLN Stop: 02/17/24 15:29 Last Admin: 01/18/24 18:26 Dose: 3 ml Discontinued Medications Hydrocodone Bitart/Acetaminophen (Hydrocodone/Apap 5/325 Tablet) 1 tab PO X1 ONE Stop: 01/18/24 12:27 Last Admin: 01/18/24 12:39 Dose: 1 tab Albuterol (Albuterol Rt 2.5 Mg/0.5 Ml Nebu) 2.5 mg INH Q6HRRT [facility] Stop: 02/17/24 18:59 Last Admin: 01/18/24 18:26 Dose: 2.5 mg Alprazolam (Alprazolam 0.25 Mg Tablet) 0.25 mg PO X1 ONE Stop: 01/18/24 23:40 Last Admin: 01/18/24 23:57 Dose: 0.25 mg Alprazolam (Alprazolam 0.25 Mg Tablet) 0.125 mg PO HS PRN PRN Reason: AGITATION (SEVERE) Stop: 01/24/24 20:59 Furosemide (Furosemide 20 Mg Tablet) 20 mg PO X1 ONE Stop: 01/19/24 08:02 Last Admin: 01/19/24 12:15 Dose: Not Given Ceftriaxone Sodium/Dextrose (Rocephin/D5w 1gm Iv Premix) 50 mls @ 100 mls/hr IV QDAY [facility] Stop: 01/25/24 16:21 Last Admin: 01/18/24 17:25 Dose: Not Given Oxycodone/Acetaminophen (Oxycodone/Apap 5/325 Tablet) 2 tab PO Q6H PRN PRN Reason: Pain Scale 4-10 (Moderate Stop: 01/23/24 15:40 Last Admin: 01/18/24 19:57 Dose: 2 tab Pantoprazole Sodium (Pantoprazole 40 Mg Tablet) 40 mg PO QDAY [facility] Stop: 02/18/24 08:59 Sevelamer Carbonate (Sevelamer Carbonate 800 Mg Tablet) 800 mg PO TIDWM FOREIGN Stop: 02/18/24 07:59 Last Admin: 01/19/24 17:31 Dose: 800 mg Sodium Polystyrene Sulfonate (Sod Polystyrene Sulfon Susp 15 Gm/60 Ml Btl) 30 gm PO X1 ONE Stop: 01/19/24 07:34 Last Admin: 01/19/24 12:16 Dose: 30 gm
--- NOTE | 2024-01-20 09:42 | ESPR_ITS ---
Documentation for date of: 01/20/24 Subjective Subjective Interval history: Patient is a 33-year-old male with a past medical history of paraplegia since the age of 13 (intubation scar noted on his chest), ESRD on Dialysis (Friday), recurrent nephrolithiasis, history of pyelonephritis, and hx catheter associated complicated urinary tract infections, history of abdominal wall necrotizing fasciitis post skin graft, s/p ileostomy. Admitted on (01/18/2024) catheter associated complicated urinary tract infection. Patient is alert and oriented this morning. Stated he would like to go home this evening. Patient stated he suffers from chronic backpain and would like to have hist cyclobenzaprine and gabapentin (both are PRN). Denied Chest pain. Denied SOB. Productive Cough. Consider Aspiration precautions on patient. Denied pyrexia or chills over night. Stated he developed ESRD secondary to repeated nephrolithiasis despite surgical intervention. Exam Vital Signs Temp Pulse Resp BP Pulse Ox O2 Del Method O2 Flow Rate 97.5 F 108 H 20 162/96 H 98 Nasal Cannula 4 01/20/24 07:46 01/20/24 07:46 01/20/24 07:46 01/20/24 07:46 01/20/24 07:46 01/20/24 07:46 01/20/24 07:46 FiO2 35 01/20/24 07:46 Narrative Exam General Appearance: Alert & Oriented X3, well-nourished male who is lying in bed in no acute distress. Productive cough. Cardio: Normal Rate and Rhythm with S1 and S2 heart sounds. No murmurs or extra heart sounds auscultated. No bruits on carotid auscultation. Upper extremities and lower extremities no peripheral edeam noted or cyanosis. Lungs: Symmetric with good expansion. Breath sounds vesicular and rhonchi bilaterally with upper air way breathing. Abdomen: Non-tender, Non-distended, Normal Reactive Bowel Sounds Neuro: Alert, cooperative, oriented to person, place, and time. Speech clear. CN grossly intact. Upper motor strength 5/5 and Lower motor strength 0/5. Atrophy of lower extremities. Objective Labs 01/22/24 08:50 01/22/24 08:50 Labs: Laboratory Results - last 24 hr 01/19/24 01/20/24 05:05 04:33 WBC 7.4 RBC 3.50 L Hgb 11.4 L Hct 38.3 L MCV 109 H MCH 32.6 MCHC 29.8 L RDW Std Deviation 55.4 H Plt Count 86 L D Neut % (Auto) 77 Lymph % (Auto) 9 L [place] % (Auto) 11 Eos % (Auto) 2 Baso % (Auto) 1 Neut # (Auto) 5.7 Lymph # (Auto) 0.6 L [place] # (Auto) 0.8 Eos # (Auto) 0.1 Baso # (Auto) 0.0 Immature Gran # (Auto) 0.07 H Absolute Nucleated RBC 0.00 Immature Gran % 1 H Nucleated RBC % 0 Sodium 132 L Potassium 4.5 D Chloride 98 Carbon Dioxide 26.9 Anion Gap 7 BUN 22 Creatinine 3.6 H Estim Creat Clear Calc 40.1 L eGFR 22 L BUN/Creatinine Ratio 6 L Glucose 97 Calculated Osmolality 267 L Calcium 9.6 Corrected Calcium 9.6 Phosphorus 5.1 Iron 68 TIBC 253 Iron Saturation 26 Unsat Iron Binding 185 L Ferritin 771 H Albumin 4.3 Quality Measures Quality Measures none Assessment & Plan Assessment Current Active Medications: Generic Name Dose Route Start Last Admin Trade Name Freq PRN Reason Stop Dose Admin Acetaminophen 650 mg 01/18/24 15:30 Acetaminophen 325 Mg Tablet PO 02/17/24 15:29 Q6H PRN Fever >101.5 Acetaminophen 650 mg 01/18/24 15:30 Acetaminophen Supp 650 Mg Supp NE 02/17/24 15:29 Q6H PRN PAIN SCALE 1-3 (mild Hydrocodone Bitart/Acetaminophen 1 tab 01/18/24 23:00 01/20/24 07:53 Hydrocodone/Apap 10/325 Tab PO 01/23/24 22:59 1 tab Q6HR PRN Administration Pain,severe 7-10 Albuterol/Ipratropium 3 ml 01/19/24 03:33 01/19/24 10:52 Albuterol/Ipratropium (Duoneb) Rt Lashaun 3 Ml Nebu INH 02/18/24 06:59 3 ml Q4HRRT PRN Administration SHORTNESS OF BREATH OR WHEEZE Amlodipine Besylate 5 mg 01/20/24 09:15 Amlodipine Besylate 5 Mg Tablet PO 02/19/24 09:14 QDAY FOREIGN Cholestyramine Resin 1 pkt 01/19/24 13:15 01/20/24 08:57 Cholestyramine/Sucrose 1 Pkt Ea PO 02/18/24 13:14 1 pkt BID FOREIGN Administration Cyclobenzaprine HCl 5 mg 01/19/24 08:40 01/20/24 08:57 Cyclobenzaprine 5 Mg Tablet PO 02/18/24 08:39 5 mg Q8HR PRN Administration Muscle Spasm Doxycycline Hyclate 100 mg 01/18/24 21:00 01/20/24 08:57 Doxycycline 100 Mg Tablet PO 01/25/24 20:59 100 mg BID FOREIGN Administration Gabapentin 600 mg 01/19/24 06:00 01/20/24 05:38 Gabapentin 300 Mg Capsule PO 02/18/24 05:59 600 mg TID FOREIGN Administration Guaifenesin/Dextromethorphan 1 each 01/18/24 23:39 Guaifenesin/Dm Tablet PO 02/17/24 23:38 BID PRN COUGH Meropenem 1,000 mg/ Sodium 50 mls @ 100 mls/hr 01/18/24 17:45 01/20/24 08:57 Chloride IV 01/25/24 17:44 100 mls/hr QDAY FOREIGN Administration Levothyroxine Sodium 25 mcg 01/19/24 06:00 01/20/24 05:38 Levothyroxine Sodium 25 Mcg Tablet PO 02/18/24 05:59 25 mcg ACBR FOREIGN Administration Melatonin 3 mg 01/19/24 21:00 01/19/24 21:47 Melatonin 3 Mg Tablet PO 02/18/24 20:59 3 mg HS FOREIGN Administration Mirtazapine 15 mg 01/19/24 20:22 Mirtazapine 15 Mg Tablet PO 02/18/24 20:59 HS PRN AGITATION (SEVERE) Ondansetron HCl 4 mg 01/18/24 15:30 Ondansetron Inj 2 Mg/Ml Inj 2 Ml IV 02/17/24 15:29 Q6H PRN NAUSEA OR VOMITING Protocol Pantoprazole Sodium 40 mg 01/19/24 09:00 01/20/24 08:57 Pantoprazole 40 Mg Tablet PO 02/18/24 08:59 40 mg QDAY FOREIGN Administration Sennosides 1 tab 01/19/24 09:00 01/20/24 08:57 Senna Tablet PO 02/18/24 08:59 1 tab QDAY FOREIGN Administration Protocol Sevelamer Carbonate 2,400 mg 01/19/24 17:45 01/20/24 08:57 Sevelamer Carbonate 800 Mg Tablet PO 02/18/24 17:44 2,400 mg TIDWM FOREIGN Administration Sodium Bicarbonate 650 mg 01/19/24 09:00 01/20/24 08:57 Sodium Bicarbonate 650 Mg Tablet PO 02/18/24 08:59 650 mg BID FOREIGN Administration Sodium Chloride 3 ml 01/18/24 15:30 01/18/24 18:26 Sodium Chloride Rt [place] 0.9% 3 Ml Nebu INH 02/17/24 15:29 3 ml PRN PRN Administration SOLN Plan Patient is a 33-year-old male with a past medical history of paraplegia since the age of 13 (intubation scar noted on his chest), ESRD on Dialysis (Friday), recurrent nephrolithiasis, history of pyelonephritis, and hx catheter associated complicated urinary tract infections, history of abdominal wall necrotizing fasciitis post skin graft, s/p ileostomy. Admitted on (01/18/2024) catheter associated complicated urinary tract infection and gross hematuria. #ESRD on Dialysis (Friday and Friday) #Electrolyte Disturances Etiology: difficult to determine if patient has secondary underlying conditions such diabetes. Patient has numerous bilateral renal calculi and indwelling brody catheter use puts patients at increased for calculi stones, specifically Struvite stones. Patient stated he progressed towards ESRD due to repeated calculi and scar formation, more likely given CT Abdomen/Pelvis shower parenchymal scars. DDx: No known history of diabetes or other intrinsic kidney disease. Diagnostics: -Ct Abdomen/Pelvis: Significant bilateral renal parenchymal scar formation, numerous bilateral renal calculi Renal Panel (01/20/2024): BUN 22, Cr 3.6 CrCl 40.1, GFR 22 Plan: -Dialysis today, goal: Ultrafiltration goal of 2 Liters as tolerated, 3 hrs, 2K/2.5 Ca Patient only completed 1.5 Liters of Ultra Filtration -Sodium Bicarbonate 650 PO BID -Sevelamer 800 PO TID WM -Renal dose medication -avoid nephrotoxicity -Actohydroxamic Acid as he has Klebsiella and Pseudomonas aeruginosa infection, outpatient with primary neurologist. #Macrocytic Anemia Etiology: likely secondary to acute hematuria. Iron panel unremarkable, B12, and Folate within range. Lactate Dehydrogenase 117 which points away form hemolysis of RBCs. Diagnostics: (01/20/2024): hgb 11.4, hct 38.3, MCV 109 -B12 355, Folate 12.94 Plan: No acute intervention. #hypo-somolar Mild Hyponatremia No acute intervention, likely to self correct. Patient is tolerating diet. Plan no acute intervention #Catheter associated complicated, urinary tract infection #hx of nephrolithiasis & pyelonephritis #Paraplegia #hypotension #hypothyroidism Health Maintenance: Disp: Pt is currently admitted to floors for further management of catheter associated, complicated, uninary tract infection, awaiting improved urinary symptoms FEN: Renal Diet DVT: on subQ heparin GI: Pantoprazole 40 PO QDay Lines: Brody catheter, and peripheral lines Code: Full Code - The patient's plan was discussed with attending Dr. Gavin Briones MD PGY1 Internal Medicine Attending Provider Attestation/Addendum Pt is seen and examined. Labs are reviewed. Agree with assessment and plan. Fransisco Alonso MD
--- NOTE | 2024-01-20 10:15 | PC.SS ---
Follow up note: Waiting for cultures. Pt is currently on 4 liters of O2. Pt will return upon dc.
[2024-01-20] MEDS: amLODIPine BESYLATE 5 MG TABLET PO (12:25)
[2024-01-20 12:38] LABS: Hepatitis A Antibody IgM Non Reactive (Non React); Hepatitis B Core Antibody IgM Non Reactive (Non React); Hepatitis B Surface Antigen Non Reactive (Non React); Hepatitis C Antibody Non Reactive (Non React)
[2024-01-20] MEDS: FUROSEMIDE INJ 10 MG/ML 4ML VIAL 40 MG IVP (15:26)
--- NOTE | 2024-01-20 15:33 | ESPR_ITS ---
Documentation for date of: 01/20/24 Subjective Subjective Interval history: Patient reports he has some shortness of breath today. He says the bipap overnight made him feel like he is unable to cough up mucus. He is eager to get out of the hospital. He is upset that his family has been unable to visit. He is in some pain in his upper back, and neck area which he says is chronic. Exam Vital Signs Temp Pulse Resp BP Pulse Ox O2 Del Method O2 Flow Rate 97.5 F 103 H 20 134/87 H 100 Nasal Cannula 4 01/20/24 12:00 01/20/24 15:26 01/20/24 12:00 01/20/24 15:26 01/20/24 12:00 01/20/24 12:00 01/20/24 12:00 FiO2 35 01/20/24 12:00 Narrative Exam Physical Exam General: Awake and in no acute distress. Very sedated and non-toxic appearing. HEENT: Normocephalic, atraumatic, mucous membranes moist. Heart: Regular rate and rhythm, no murmurs, rubs or gallops. Lungs: no wheezing , course crackles bilaterally, Abdomen: Soft, distended due to body habitus, nontender, positive bowel sounds. ?No guarding or rebound tenderness. ileostomy back with dark drainage Neurologic: Alert and oriented x3, atrophied legs, paraplegic unable to move legs Extremities: No edema, pedal pulse 2+ Skin: No rash or ecchymoses. Objective Labs 01/20/24 04:33 01/20/24 04:33 Labs: Laboratory Results - last 24 hr 01/20/24 01/20/24 04:33 04:53 WBC 7.4 RBC 3.50 L Hgb 11.4 L Hct 38.3 L MCV 109 H MCH 32.6 MCHC 29.8 L RDW Std Deviation 55.4 H Plt Count 86 L D Neut % (Auto) 77 Lymph % (Auto) 9 L [place] % (Auto) 11 Eos % (Auto) 2 Baso % (Auto) 1 Neut # (Auto) 5.7 Lymph # (Auto) 0.6 L [place] # (Auto) 0.8 Eos # (Auto) 0.1 Baso # (Auto) 0.0 Immature Gran # (Auto) 0.07 H Absolute Nucleated RBC 0.00 Immature Gran % 1 H Nucleated RBC % 0 Sodium 132 L Potassium 4.5 D Chloride 98 Carbon Dioxide 26.9 Anion Gap 7 BUN 22 Creatinine 3.6 H Estim Creat Clear Calc 40.1 L eGFR 22 L BUN/Creatinine Ratio 6 L Glucose 97 Calculated Osmolality 267 L Calcium 9.6 Corrected Calcium 9.6 Phosphorus 5.1 Albumin 4.3 Hepatitis A IgM Ab Non Reactive Hep Bs Antigen Non Reactive Hep B Core IgM Ab Non Reactive Hepatitis C Antibody Non Reactive Quality Measures Quality Measures none Assessment & Plan Problem List (1) Urinary tract infection: Status: Acute (2) Colonization with multidrug-resistant bacteria: Status: Acute (3) Renal calculus, bilateral: Status: Acute (4) MRSA (methicillin resistant staph aureus) culture positive: Status: Acute (5) Hypotension: Status: Acute (6) Paraplegia: Status: Acute (7) Pneumonia: Status: Acute (8) Sinus tachycardia: Status: Acute (9) Back pain: Status: Acute (10) ESRD (end stage renal disease): Status: Acute (11) Hyponatremia: Status: Acute Assessment Current Active Medications: Generic Name Dose Route Start Last Admin Trade Name Freq PRN Reason Stop Dose Admin Acetaminophen 650 mg 01/18/24 15:30 Acetaminophen 325 Mg Tablet PO 02/17/24 15:29 Q6H PRN Fever >101.5 Acetaminophen 650 mg 01/18/24 15:30 Acetaminophen Supp 650 Mg Supp VA 02/17/24 15:29 Q6H PRN PAIN SCALE 1-3 (mild Hydrocodone Bitart/Acetaminophen 1 tab 01/18/24 23:00 01/20/24 13:54 Hydrocodone/Apap 10/325 Tab PO 01/23/24 22:59 1 tab Q6HR PRN Administration Pain,severe 7-10 Albuterol/Ipratropium 3 ml 01/19/24 03:33 01/19/24 10:52 Albuterol/Ipratropium (Duoneb) Rt [place] 3 Ml Nebu INH 02/18/24 06:59 3 ml Q4HRRT PRN Administration SHORTNESS OF BREATH OR WHEEZE Amlodipine Besylate 5 mg 01/20/24 09:15 01/20/24 12:25 Amlodipine Besylate 5 Mg Tablet PO 02/19/24 09:14 5 mg QDAY FOREIGN Administration Cholestyramine Resin 1 pkt 01/19/24 13:15 01/20/24 08:57 Cholestyramine/Sucrose 1 Pkt Ea PO 02/18/24 13:14 1 pkt BID FOREIGN Administration Cyclobenzaprine HCl 5 mg 01/19/24 08:40 01/20/24 08:57 Cyclobenzaprine 5 Mg Tablet PO 02/18/24 08:39 5 mg Q8HR PRN Administration Muscle Spasm Doxycycline Hyclate 100 mg 01/18/24 21:00 01/20/24 08:57 Doxycycline 100 Mg Tablet PO 01/25/24 20:59 100 mg BID FOREIGN Administration Gabapentin 600 mg 01/19/24 06:00 01/20/24 13:54 Gabapentin 300 Mg Capsule PO 02/18/24 05:59 600 mg TID FOREIGN Administration Guaifenesin/Dextromethorphan 1 each 01/18/24 23:39 Guaifenesin/Dm Tablet PO 02/17/24 23:38 BID PRN COUGH Meropenem 1,000 mg/ Sodium 50 mls @ 100 mls/hr 01/18/24 17:45 01/20/24 08:57 Chloride IV 01/25/24 17:44 100 mls/hr QDAY FOREIGN Administration Levothyroxine Sodium 25 mcg 01/19/24 06:00 01/20/24 05:38 Levothyroxine Sodium 25 Mcg Tablet PO 02/18/24 05:59 25 mcg ACBR FOREIGN Administration Melatonin 3 mg 01/19/24 21:00 01/19/24 21:47 Melatonin 3 Mg Tablet PO 02/18/24 20:59 3 mg HS FOREIGN Administration Mirtazapine 15 mg 01/19/24 20:22 Mirtazapine 15 Mg Tablet PO 02/18/24 20:59 HS PRN AGITATION (SEVERE) Nystatin 0 gm 01/20/24 11:30 Nystatin Cr 30 Gm Tube TOP 02/19/24 11:29 BID FOREIGN Ondansetron HCl 4 mg 01/18/24 15:30 Ondansetron Inj 2 Mg/Ml Inj 2 Ml IV 02/17/24 15:29 Q6H PRN NAUSEA OR VOMITING Protocol Pantoprazole Sodium 40 mg 01/19/24 09:00 01/20/24 08:57 Pantoprazole 40 Mg Tablet PO 02/18/24 08:59 40 mg QDAY FOREIGN Administration Sennosides 1 tab 01/19/24 09:00 01/20/24 08:57 Senna Tablet PO 02/18/24 08:59 1 tab QDAY FOREIGN Administration Protocol Sevelamer Carbonate 2,400 mg 01/19/24 17:45 01/20/24 12:25 Sevelamer Carbonate 800 Mg Tablet PO 02/18/24 17:44 2,400 mg TIDWM FOREIGN Administration Sodium Bicarbonate 650 mg 01/19/24 09:00 01/20/24 08:57 Sodium Bicarbonate 650 Mg Tablet PO 02/18/24 08:59 650 mg BID FOREIGN Administration Sodium Chloride 3 ml 01/18/24 15:30 01/18/24 18:26 Sodium Chloride Rt Lasha[place] 0.9% 3 Ml Nebu INH 02/17/24 15:29 3 ml PRN PRN Administration SOLN Additional Assessment: 33 year old male PMHx paraplegia since age 13, ESRD on HD since 2019, recurrent nephrolithiasis w/ UTI and pyelonephritis, tunneled catheter with MRSA infection, abdominal necrotizing fasciitis s/p extensive skin graft, s/p ileostomy presented to ED with hematuria x 1 day. Notably he visited the ED november 2023 for UTI and was discharged on bactrim, subsequent cultures showed that he had multidrug resistant infection with klebsiella, pseudomonas, e coli. Arrived to ED afebrile, non toxic appearing with normal WBC, tachycardic at 101, chronically high creatinine of 3.5 BUN 27. UA with 3+ blood and suggestive of UTI , CT A/P showed no hydronephrosis, but with bilateral renal calculi, and cystitis and UTI. Due to history of MDR bacteria, and hematuria patient admitted to obs for IV antibiotic treatment. Patient getting HD fri , friday, followed by nephro. Additionally with CXR and CT showing bibasilar pneumonia with small effusions, and mild heart failure pattern, getting IV lasix. Following urine culture to guide further treatment. Plan #UTI #Bilateral Renal Calculi #Hematuria History of recurrent UTI and calculi, most recently in november was discharged on bactrim. previous culture showed MDR klebisella, pseudomonas, e.coli. does not meet sepsis criteria, 1/4 SIRS, non toxic appearing. UA with 3+ blood and suggestive of UTI , CT A/P showed no hydronephrosis, but with bilateral renal calculi, and cystitis. plan: - consulted ID - follow culture - on Meropenem 1g IV (due to hx of allergy/anaphylaxis) -changing to 500qd meropenem per pharmacy rec for tomorrow - doxycycline 100mg po BID - CBC/ Renal panel - norco q6for pain #Pneumonia with shortness of breath, coarse breath sounds on exam. no fever, no malaise CT chest shows bibasilar, with small effusions WBC 7.4 today- improving on meropenem and doxy plan: - continue meropenem and doxy, will empirically cover the pneumonia as well at UTI. #Pulmonary edema symptomatic shortness of breath, coarse crackles on exam, cxr w pulmonary edema or infiltrate with hilar widening seen CT chest shows mild heart failure pattern. BNP 172 last echo 2018 showed mitral +tricuspid regurge, EF 60-65 plan: - IV lasix 40mg one time #ESRD on HD since 2018 IJ cath placed in 2019 creatinine 3.5, BUN 27 HD fri and friday under Dr. Jeff followed by nephro plan: - Nephro consulted, appreciate recs , HD friday 1.5L - continue home meds as listed - sodium bicarb 650 po BID - sevelamer 2400mg po TID - cincalcet 30 mg po daily - lokelma 10g po daily - MG Oxide 400mg PO BID #Paraplegia #Hypotension #chronic thoracic pain since age 13 , SCI T5-T6 s/p laminectomy and fusion plan: - continue gabapentin 600mg TID - home Midodrine 10mg prn - norco q6 - cyclobenzaprine 5mg po BID #Hyponatremia 132 today, underwent HD yesterday. likely from HD/ underlying infection. monitor , no fluids as po intake ok and has pulmonary edema. #Intertrigo erythematous , moist and folded flank and axial skin. plan: - nystatin cream topical BID #hypothyroidism TSH 1.62 12/2022 plan: - continue home levothyroxine 25mcg #HTN 162/96 today plan: - amlodipine 5mg Case discussed in detail with attending Dr. Bolden Attending Provider Attestation/Addendum I have discussed and was present for the essential components of the history, physical examination, diagnosis, and treatment plan with the resident. I agree with the patient's care as documented by the resident and amended herein by me. Moises Bolden DO. Although this document has been carefully reviewed, there may still be some phonetic and other typographical errors. These errors are purely grammatical due to imperfections in the software program and should not be construed in any way to compromise the substance of the patient's medical care during this visit.
[2024-01-20] MEDS: NYSTATIN CR 30 GM TUBE TOP ×2 (17:34→21:00)
[2024-01-20] MEDS: MELATONIN 3 MG TABLET PO (20:48)
[2024-01-21] VITALS (12 sets, daily range): BP systolic 101–136; BP diastolic 66–99; PULSE 92–104; RESP 17–20; TEMP 36.1–36.4; O2SAT 93–100
[2024-01-21] MEDS: CYCLObenzaPRINE 5 MG TABLET PO ×3 (01:12→20:27)
[2024-01-21] MEDS: HYDROcodone/APAP 10/325 TAB PO ×4 (01:38→21:51)
[2024-01-21] MEDS: LEVOTHYROXINE SODIUM 25 MCG TABLET PO (05:50)
[2024-01-21] MEDS: GABAPENTIN 300 MG CAPSULE 600 MG PO ×3 (05:50→21:51)
[2024-01-21 06:10] LABS: Basophils % (Auto) 0 % (0-2.5); Eosinophils # (Auto) 0.1 Thou/mm3 (0.0-0.5); Eosinophils % (Auto) 2 % (0-10); Hematocrit 33.5 % (41.0-53.0); Hemoglobin 10.2 g/dL (13.5-16.0); Immature Granulocytes % (Auto) 1 % (0-0); Immature Granulocytes Auto 0.06 Thou/mm3 (0.00-0.00); Lymphocytes # (Auto) 0.5 Thou/mm3 (1.0-4.8); Lymphocytes % (Auto) 8 % (10-50); Mean Corpuscular HGB Conc 30.4 g/dl (31.0-37.0); Mean Corpuscular Hemoglobin 33.1 pg (25.0-35.0); Mean Corpuscular Volume 109 fL (80-100); Monocytes # (Auto) 0.9 Thou/mm3 (0.0-0.8); Monocytes % (Auto) 13 % (0-12); Neutrophils # (Auto) 5.3 Thou/mm3 (1.8-7.7); Neutrophils % (Auto) 77 % (37-80); Nucleated Red Blood Cell % 0 /100 WBC (0); Platelet Count 111 Thou/mm3 (140-440); RDW Standard Deviation 52.8 fL (35.1-43.9); Red Blood Count 3.08 Miln/mm3 (4.50-5.90); White Blood Count 6.8 Thou/mm3 (3.8-10.6)
[2024-01-21 06:50] LABS: Albumin, Serum 3.8 gm/dL (3.5-5.0); Anion Gap 6 (7-16); BUN/Creatinine Ratio 7 Ratio (12-20); Blood Urea Nitrogen 30 mg/dL (9-23); Calcium 9.2 mg/dL (8.3-10.6); Calcium (Corrected) 9.4 mg/dL (8.5-10.1); Carbon Dioxide 28.4 mMol/L (20.0-31.0); Chloride 97 mMol/L (98-107); Creatinine (Component) 4.2 mg/dL (0.6-1.3); Estimated Creatinine Clearance 33.9 mL/min (>60); Glucose 99 mg/dL (74-106); Osmolality,Calculated 268 (275-295); Phosphorous 5.6 mg/dL (2.4-5.1); Potassium 4.7 mMol/L (3.4-5.1); Sodium 131 mMol/L (136-145); eGFR 18 See Note
[2024-01-21] MEDS: amLODIPine BESYLATE 5 MG TABLET PO (07:58)
[2024-01-21] MEDS: DOXYCYCLINE 100 MG TABLET PO ×2 (07:58→20:27)
[2024-01-21] MEDS: PANTOPRAZOLE 40 MG TABLET PO (07:58)
[2024-01-21] MEDS: SENNA TABLET 1 TAB PO (07:59)
[2024-01-21] MEDS: SODIUM BICARBONATE 650 MG TABLET PO ×2 (07:59→20:27)
[2024-01-21] MEDS: MEROPENEM INJ 500 MG in SODIUM CHLORIDE 0.9% (P) 50 ML 100 MG IV (07:59)
[2024-01-21] MEDS: SEVELAMER CARBONATE 800 MG TABLET 2400 MG PO ×3 (07:59→17:50)
[2024-01-21] MEDS: CHOLESTYRAMINE/SUCROSE 1 PKT EA PO ×2 (08:00→20:26)
--- NOTE | 2024-01-21 09:01 | PC.NURSE ---
Dean from the lab says pt does not have klebsiella currently, the last culture that showed klebsiella was in November, the lab no longer has an isolate for that, for any questions call [facility] [phone]
--- NOTE | 2024-01-21 09:49 | ESPR_ITS ---
Documentation for date of: 01/21/24 Subjective Subjective Interval history: Mr. Medrano is a 33-year-old male with a past medical history of paraplegia since the age of 13 (intubation scar noted on his neck), ESRD on Dialysis (Friday- under Dr. Jeff), recurrent nephrolithiasis, history of pyelonephritis, and hx catheter associated complicated urinary tract infections, history of abdominal wall necrotizing fasciitis post skin graft, s/p ileostomy. Admitted on (01/18/2024) catheter associated complicated urinary tract infection. 01/21/2024 took over care from Dr. Alonso. Patient currently seen in medical floor. Resting comfortably. He gets dialysis twice weekly. Review of Systems Review of Systems Narrative Review of Systems: CONSTITUTIONAL: Patient denies any fever, chills. Complaining of fatigue HEENT: Denies any visual disturbances or hearing problems. CARDIOVASCULAR: Patient denies any chest pain, shortness of breath, swelling in the lower extremities. PULMONARY: Patient denies any shortness of breath, cough. GASTROINTESTINAL: Patient denies any abdominal pain, constipation, nausea, vomiting, diarrhea. GENITOURINARY: Recurrent UTIs SKIN: Denies any rash. MUSCULOSKELETAL: In bed NEUROLOGICAL: Paraplegic Exam Vital Signs Temp Pulse Resp BP Pulse Ox O2 Del Method O2 Flow Rate 36.1 C 90 18 122/86 H 98 Nasal Cannula 4 01/22/24 08:00 01/22/24 09:28 01/22/24 08:00 01/22/24 09:28 01/22/24 08:00 01/22/24 08:00 01/22/24 08:00 FiO2 35 01/21/24 15:44 Narrative Exam GENERAL APPEARANCE: Patient seems to be comfortable, adequately hydrated and nourished. HEENT: EOMI, PERRLA NECK: Neck supple, no JVD or bruit CARDIOVASCULAR: Heart regular, no murmurs LUNGS/CHEST: Chest clear to auscultation. No rales, rhonchi, wheezing ABDOMEN: Soft, nontender, nondistended. No masses. Normal bowel sounds. Has Brody catheter EXTREMITIES: No edema, clubbing or cyanosis. SKIN: Skin exam normal without any rashes MUSCULOSKELETAL: In bed NEUROLOGICAL : Paraplegic Objective Labs 01/23/24 04:43 01/23/24 04:43 Labs: Laboratory Results - last 24 hr 01/22/24 08:50 WBC 7.8 RBC 3.53 L Hgb 11.6 L Hct 37.3 L MCV 106 H MCH 32.9 MCHC 31.1 RDW Std Deviation 51.3 H Plt Count 129 L Neut % (Auto) 79 Lymph % (Auto) 10 [place] % (Auto) 9 Eos % (Auto) 1 Baso % (Auto) 1 Neut # (Auto) 6.1 Lymph # (Auto) 0.7 L [place] # (Auto) 0.7 Eos # (Auto) 0.1 Baso # (Auto) 0.0 Immature Gran # (Auto) 0.08 H Absolute Nucleated RBC 0.00 Immature Gran % 1 H Nucleated RBC % 0 Assessment & Plan Assessment and plan (1) Urinary tract infection: Status: Acute (2) Colonization with multidrug-resistant bacteria: Status: Acute (3) Renal calculus, bilateral: Status: Acute (4) MRSA (methicillin resistant staph aureus) culture positive: Status: Acute (5) Hypotension: Status: Acute (6) Paraplegia: Status: Acute (7) Pneumonia: Status: Acute (8) Sinus tachycardia: Status: Acute (9) Back pain: Status: Acute (10) ESRD (end stage renal disease): Status: Acute (11) Hyponatremia: Status: Acute Additional Assessment & Plan Additional Plan: #ESRD on Dialysis (Friday and Friday) Etiology: difficult to determine if patient has secondary underlying conditions such diabetes. Patient has numerous bilateral renal calculi and indwelling brody catheter use puts patients at increased for calculi stones, specifically Struvite stones. Patient stated he progressed towards ESRD due to repeated calculi and scar formation, more likely given CT Abdomen/Pelvis shower parenchymal scars. -Ct Abdomen/Pelvis: Significant bilateral renal parenchymal scar formation, numerous bilateral renal calculi Next dialysis Friday -Sodium Bicarbonate 650 PO BID -Sevelamer 800 PO TID WM -Renal dose medication -avoid nephrotoxicity #Macrocytic Anemia Epogen with dialysis #hypo-somolar Mild Hyponatremia # brody Catheter associated complicated, urinary tract infection #hx of nephrolithiasis & pyelonephritis #Paraplegia #hypotension #hypothyroidism
--- NOTE | 2024-01-21 10:00 | PC.SS ---
Follow up note: Waiting for infection to improve. Pt is on IV antibiotic. Pt will return home upon dc.
[2024-01-21] MEDS: NYSTATIN CR 30 GM TUBE TOP ×2 (11:00→20:28)
[2024-01-21] MEDS: FUROSEMIDE INJ 10 MG/ML 4ML VIAL 40 MG IVP (13:54)
--- NOTE | 2024-01-21 14:10 | PD.IDPROG ---
Subjective Subjective Interval history: prior rx based on pre admit urine with more R. subsequent urine not as impressive on cx. allergies noted. no fever Exam Vital Signs Temp Pulse Resp BP Pulse Ox O2 Del Method O2 Flow Rate 97.5 F 93 18 136/81 H 97 Nasal Cannula 4 01/21/24 11:58 01/21/24 13:54 01/21/24 11:58 01/21/24 13:54 01/21/24 11:58 01/21/24 11:58 01/21/24 11:58 FiO2 35 01/21/24 11:58 Narrative Exam falls asleep fast and randomly, so carlos has primitivo. is on O2 as well. Objective - Internal Medicine Labs 01/21/24 05:34 01/21/24 05:34 Labs: Laboratory Results - last 24 hr 01/21/24 05:34 WBC 6.8 RBC 3.08 L Hgb 10.2 L Hct 33.5 L MCV 109 H MCH 33.1 MCHC 30.4 L RDW Std Deviation 52.8 H Plt Count 111 L D Neut % (Auto) 77 Lymph % (Auto) 8 L [place] % (Auto) 13 H Eos % (Auto) 2 Baso % (Auto) 0 Neut # (Auto) 5.3 Lymph # (Auto) 0.5 L [place] # (Auto) 0.9 H Eos # (Auto) 0.1 Baso # (Auto) 0.0 Immature Gran # (Auto) 0.06 H Absolute Nucleated RBC 0.00 Immature Gran % 1 H Nucleated RBC % 0 Sodium 131 L Potassium 4.7 Chloride 97 L Carbon Dioxide 28.4 Anion Gap 6 L BUN 30 H Creatinine 4.2 H* D Estim Creat Clear Calc 33.9 L eGFR 18 L BUN/Creatinine Ratio 7 L Glucose 99 Calculated Osmolality 268 L Calcium 9.2 Corrected Calcium 9.4 Phosphorus 5.6 H Albumin 3.8 D Assessment & Plan A&P Narrative hx of uti with abn urinalysis in ED. paraplegia with NB/NB and chronic brody pen allergy noted changed the merrem and doxy to macrobid to respect the pen allergy. suspect the prior cx from ED not done optimally, no need to target that germ please get an outpt sleep study on him andafter some sould searching, put him back on po doxy for pneumonia but suspect the resp changes are more primitivo related given situation in room will check in thursday if still here. dispositon per others. Time Spent With Patient Time: Total time spent is greater than 50% in coordination of care (as documented) at patient's floor/unit and/or counseling patient:
--- NOTE | 2024-01-21 14:40 | PD.ADDPROG ---
Addendum Progress Note Addendum Date of report being addended: 01/21/24 Narrative: will give gent with hd for 7d. ok to finish as outpt. doxy is po. macrobid is problematic in ckd, but on hd for 3 yrs. , so will go with jj. needs sleep study though
--- NOTE | 2024-01-21 16:17 | PC.PT ---
Patient is paraplegic. 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 As per patient, He was dependent with transfers using malia lift at home. Patient wanted to know if he could bring his wc and he wants to go downstairs. Patient confirmed with RN and charge nurse that he could sit on his wc but he cannot go downstairs. Patient said 'nevermind then.' Will cancel PT evaluation secondary to patient is at his PLOF.
--- NOTE | 2024-01-21 18:09 | ESPR_ITS ---
<Statement entered by Leslie Hinojosa MD - 01/21/24 19:43> I discussed with and supervised the medical student who took care of this patient. I personally saw and examined the patient and discussed the assessment and plan with the entire medicine team, including my attending Dr. Muhammad, I agree with most of the assessment and plan as documented below. Patient reports he is feeling better, coarse crackles and rhonchi are being auscultated bilateraly. He continues to receive antibiotics, flexeril and baclofen. He is still on NC 4L. Will continue to monitor CBC. Ashish Nelson MD PGY-1 Disclaimer: Despite multiple revisions, due to the dictation software being used, the document bellow may not be free of grammatical errors including phonetic/typographic errors. However, this does not deter from our commitment to providing health care in the patient's best interest in mind. Documentation for date of: 01/21/24 Subjective Subjective Interval history: patient reports improved breathing today, still coughing with mucus. He wants to sit up in his chair to cough out mucus. He states he really wants to get out of the hospital. overnight he had hand cramping which improved with baclofen and flexeril. Exam Vital Signs Temp Pulse Resp BP Pulse Ox O2 Del Method O2 Flow Rate 97.6 F 104 H 18 123/99 H 100 Nasal Cannula 4 01/21/24 15:44 01/21/24 15:44 01/21/24 15:44 01/21/24 15:44 01/21/24 15:44 01/21/24 15:44 01/21/24 15:44 FiO2 35 01/21/24 15:44 Narrative Exam Physical Exam General: Awake and in no acute distress. Very sedated and non-toxic appearing. HEENT: Normocephalic, atraumatic, mucous membranes moist. Heart: Regular rate and rhythm, no murmurs, rubs or gallops. Lungs: no wheezing , course crackles bilaterally, Abdomen: Soft, distended due to body habitus, nontender, positive bowel sounds. ?No guarding or rebound tenderness. ileostomy back with dark drainage Neurologic: Alert and oriented x3, atrophied legs, paraplegic unable to move legs Extremities: No edema, pedal pulse 2+ Skin: No rash or ecchymoses. Objective Labs 01/21/24 05:34 01/21/24 05:34 Labs: Laboratory Results - last 24 hr 01/21/24 05:34 WBC 6.8 RBC 3.08 L Hgb 10.2 L Hct 33.5 L MCV 109 H MCH 33.1 MCHC 30.4 L RDW Std Deviation 52.8 H Plt Count 111 L D Neut % (Auto) 77 Lymph % (Auto) 8 L Banner % (Auto) 13 H Eos % (Auto) 2 Baso % (Auto) 0 Neut # (Auto) 5.3 Lymph # (Auto) 0.5 L Banner # (Auto) 0.9 H Eos # (Auto) 0.1 Baso # (Auto) 0.0 Immature Gran # (Auto) 0.06 H Absolute Nucleated RBC 0.00 Immature Gran % 1 H Nucleated RBC % 0 Sodium 131 L Potassium 4.7 Chloride 97 L Carbon Dioxide 28.4 Anion Gap 6 L BUN 30 H Creatinine 4.2 H* D Estim Creat Clear Calc 33.9 L eGFR 18 L BUN/Creatinine Ratio 7 L Glucose 99 Calculated Osmolality 268 L Calcium 9.2 Corrected Calcium 9.4 Phosphorus 5.6 H Albumin 3.8 D Quality Measures Quality Measures none Assessment & Plan Problem List (1) Urinary tract infection: Status: Acute (2) Colonization with multidrug-resistant bacteria: Status: Acute (3) Renal calculus, bilateral: Status: Acute (4) MRSA (methicillin resistant staph aureus) culture positive: Status: Acute (5) Hypotension: Status: Acute (6) Paraplegia: Status: Acute (7) Pneumonia: Status: Acute (8) Sinus tachycardia: Status: Acute (9) Back pain: Status: Acute (10) ESRD (end stage renal disease): Status: Acute (11) Hyponatremia: Status: Acute Assessment Current Active Medications: Generic Name Dose Route Start Last Admin Trade Name Freq PRN Reason Stop Dose Admin Acetaminophen 650 mg 01/18/24 15:30 Acetaminophen 325 Mg Tablet PO 02/17/24 15:29 Q6H PRN Fever >101.5 Acetaminophen 650 mg 01/18/24 15:30 Acetaminophen Supp 650 Mg Supp CO 02/17/24 15:29 Q6H PRN PAIN SCALE 1-3 (mild Hydrocodone Bitart/Acetaminophen 1 tab 01/18/24 23:00 01/21/24 15:02 Hydrocodone/Apap 10/325 Tab PO 01/23/24 22:59 1 tab Q6HR PRN Administration Pain,severe 7-10 Albuterol/Ipratropium 3 ml 01/19/24 03:33 01/19/24 10:52 Albuterol/Ipratropium (Duoneb) Rt Lashaun 3 Ml Nebu INH 02/18/24 06:59 3 ml Q4HRRT PRN Administration SHORTNESS OF BREATH OR WHEEZE Amlodipine Besylate 5 mg 01/20/24 09:15 01/21/24 07:58 Amlodipine Besylate 5 Mg Tablet PO 02/19/24 09:14 5 mg QDAY FOREIGN Administration Cholestyramine Resin 1 pkt 01/19/24 13:15 01/21/24 08:00 Cholestyramine/Sucrose 1 Pkt Ea PO 02/18/24 13:14 1 pkt BID FOREIGN Administration Cyclobenzaprine HCl 5 mg 01/19/24 08:40 01/21/24 11:00 Cyclobenzaprine 5 Mg Tablet PO 02/18/24 08:39 5 mg Q8HR PRN Administration Muscle Spasm Doxycycline Hyclate 100 mg 01/21/24 21:00 Doxycycline 100 Mg Tablet PO 01/28/24 20:59 BID FOREIGN Gabapentin 600 mg 01/19/24 06:00 01/21/24 13:53 Gabapentin 300 Mg Capsule PO 02/18/24 05:59 600 mg TID FOREIGN Administration Guaifenesin/Dextromethorphan 1 each 01/18/24 23:39 Guaifenesin/Dm Tablet PO 02/17/24 23:38 BID PRN COUGH Gentamicin Sulfate/Sodium Chloride 120 mg in 100 mls @ 200 mls/hr 01/23/24 14:00 Gentamicin/Ns 120 Mg Ivpb IV 01/30/24 13:59 MoFr FOREIGN Levothyroxine Sodium 25 mcg 01/19/24 06:00 01/21/24 05:50 Levothyroxine Sodium 25 Mcg Tablet PO 02/18/24 05:59 25 mcg ACBR FOREIGN Administration Melatonin 3 mg 01/19/24 21:00 01/20/24 20:48 Melatonin 3 Mg Tablet PO 02/18/24 20:59 3 mg HS FOREIGN Administration Mirtazapine 15 mg 01/19/24 20:22 Mirtazapine 15 Mg Tablet PO 02/18/24 20:59 HS PRN AGITATION (SEVERE) Nystatin 0 gm 01/20/24 11:30 01/21/24 11:00 Nystatin Cr 30 Gm Tube TOP 02/19/24 11:29 1 applicatio BID FOREIGN Administration Ondansetron HCl 4 mg 01/18/24 15:30 Ondansetron Inj 2 Mg/Ml Inj 2 Ml IV 02/17/24 15:29 Q6H PRN NAUSEA OR VOMITING Protocol Pantoprazole Sodium 40 mg 01/19/24 09:00 01/21/24 07:58 Pantoprazole 40 Mg Tablet PO 02/18/24 08:59 40 mg QDAY FOREIGN Administration Pharmacy Consult 1 each 01/21/24 14:45 Pharmacy To Dose Gentamicin IV 02/20/24 14:44 QDAY PRN CONSULT Sennosides 1 tab 01/19/24 09:00 01/21/24 07:59 Senna Tablet PO 02/18/24 08:59 1 tab QDAY FOREIGN Administration Protocol Sevelamer Carbonate 2,400 mg 01/19/24 17:45 01/21/24 17:50 Sevelamer Carbonate 800 Mg Tablet PO 02/18/24 17:44 2,400 mg TIDWM FOREIGN Administration Sodium Bicarbonate 650 mg 01/19/24 09:00 01/21/24 07:59 Sodium Bicarbonate 650 Mg Tablet PO 02/18/24 08:59 650 mg BID FOREIGN Administration Sodium Chloride 3 ml 01/18/24 15:30 01/18/24 18:26 Sodium Chloride Rt Lashaun 0.9% 3 Ml Nebu INH 02/17/24 15:29 3 ml PRN PRN Administration SOLN Additional Assessment: 33 year old male PMHx paraplegia since age 13, ESRD on HD since 2019, recurrent nephrolithiasis w/ UTI and pyelonephritis, tunneled catheter with MRSA infection, abdominal necrotizing fasciitis s/p extensive skin graft, s/p ileostomy presented to ED with hematuria x 1 day. Notably he visited the ED november 2023 for UTI and was discharged on bactrim, subsequent cultures showed that he had multidrug resistant infection with klebsiella, pseudomonas, e coli. Arrived to ED afebrile, non toxic appearing with normal WBC, tachycardic at 101, chronically high creatinine of 3.5 BUN 27. UA with 3+ blood and suggestive of UTI , CT A/P showed no hydronephrosis, but with bilateral renal calculi, and cystitis and UTI. Due to history of MDR bacteria, and hematuria patient admitted to obs for IV antibiotic treatment. Patient getting HD fri , friday, followed by nephro. Additionally with CXR and CT showing bibasilar pneumonia with small effusions, and mild heart failure pattern, getting IV lasix. Urine culture returned positive for E. coli, resistant to fluoroquinolones. Plan #UTI #Bilateral Renal Calculi #Hematuria History of recurrent UTI and calculi, most recently in november was discharged on bactrim. previous culture showed MDR klebisella, pseudomonas, e.coli. does not meet sepsis criteria, 1/4 SIRS, non toxic appearing. UA with 3+ blood and suggestive of UTI , CT A/P showed no hydronephrosis, but with bilateral renal calculi, and cystitis. cuture returned positive for e.coli resistant to cipro and levofloxacin plan: - consulted ID - follow culture - 500qd meropenem per pharmacy rec for tomorrow - doxycycline 100mg po BID (2 more days) - CBC/ Renal panel - norco q6for pain #Pneumonia with shortness of breath, coarse breath sounds on exam. no fever, no malaise CT chest shows bibasilar, with small effusions WBC improving on meropenem and doxy plan: - continue meropenem and doxy, will empirically cover the pneumonia as well at UTI. - Chest physiotherapy #Pulmonary edema symptomatic shortness of breath, coarse crackles on exam, cxr w pulmonary edema or infiltrate with hilar widening seen CT chest shows mild heart failure pattern. BNP 172 last echo 2018 showed mitral +tricuspid regurge, EF 60-65 symptomatic sob improvement with lasix plan: - IV lasix 40mg one time again today #ESRD on HD since 2019 IJ cath placed in 2019 creatinine 3.5, BUN 27 HD fri and friday under Dr. Jeff followed by nephro plan: - Nephro consulted, appreciate recs , HD friday 1.5L - continue home meds as listed - sodium bicarb 650 po BID - sevelamer 2400mg po TID - cincalcet 30 mg po daily - lokelma 10g po daily - MG Oxide 400mg PO BID #Paraplegia #Hypotension #chronic thoracic pain since age 13 , SCI T5-T6 s/p laminectomy and fusion plan: - continue gabapentin 600mg TID - home Midodrine 10mg prn - norco q6 - cyclobenzaprine 5mg po BID #Hyponatremia 132 , underwent HD friday likely from HD/ underlying infection. monitor , no fluids as po intake ok and has pulmonary edema. #Intertrigo erythematous , moist and folded flank and axial skin. plan: - nystatin cream topical BID #hypothyroidism TSH 1.62 12/2022 plan: - continue home levothyroxine 25mcg #HTN 162/96 01/20/2024 plan: - amlodipine 5mg Case discussed in detail with attending Dr. Muhammad Attending Provider Attestation/Addendum I have examined the patient, reviewed labs and imaging findings, discussed the case with the resident(s), and reviewed entered orders. I agree with the plan of care as outlined in this note, with these additional summaries/recommendations: Patient seen at bedside. We will continue IV antibiotics for complicated urinary tract infection and community-acquired pneumonia. Infectious disease following patient to receive IV gentamicin during hemodialysis sessions for 7 days and oral doxycycline. Currently on 4 L nasal cannula and we will wean oxygen as tolerated. Continue breathing treatments and Mucinex. IV Lasix 40 mg x 1 today for shortness of breath. Patient reported severe muscle spasms overnight and was given baclofen and Flexeril. We will continue Flexeril. Nephrology following for end-stage renal disease on hemodialysis. On phosphate binders and sodium bicarb. Noted drop in hemoglobin and platelets today, repeat hematology panel in AM. We will continue to wean supplemental oxygen and anticipate discharge in the next [address] Muhammad
--- NOTE | 2024-01-21 18:16 | ESCONSULT_ITS ---
RE: KENNEDY LEDEZMA : 1990 DATE OF CONSULTATION: 01/20/2024 REFERRING PHYSICIAN: Hospitalist team and Dr. Bryce Bunn, [facility] REASON FOR CONSULTATION: Hematuria and hypoxemia. HISTORY OF PRESENT ILLNESS: The patient is hypoxic and has hematuria, which he says he has not had for several years. He is paraplegic for many years. He has a listed weight loss and described the cause as paraplegia. He has associated neurogenic bowel and bladder, which is commonly seen. He was also on dialysis for last 3 years due to renal stone disease. PAST SURGICAL HISTORY: Include dialysis access procedures and prior abdominal surgery as noted in the record. ALLERGIES: MULTIPLE INCLUDING MOST PENICILLINS WELL LIZY INHIBITORS. I DO NOT HAVE ANY INFORMATION ABOUT PRIOR CEPHALOSPORIN USE. HE MAY HAVE TOLERATED IT I DO NOT KNOW. HE IS NOT ABLE TO DESCRIBE. IMMUNIZATIONS: Unavailable. FAMILY HISTORY AND SOCIAL HISTORY: Similarly unavailable because patient fell asleep so fast. as I wastrying to get history as I could not really get very far before he would fall asleep. PHYSICAL EXAMINATION: The patient has benign exam. He is able to move his upper extremities to limited extent, but he is diffusely edematous. He is on dialysis as mentioned and blood culture negative for 48 hours. He falls asleep readily. He may need a sleep study. Does look like p.o. agents are going to be quite effective for the urine but his allergies are limiting. He has been afebrile on Merrem and doxycycline. Oxygen requirements are significant, but amounts to a couple of liters, so if he weans off oxygen, he may be able to go home very quickly. I changed him to gentamicin with dialysis. based on micro. DT: 14:39:21 TT: 16:59:00 Ref: [id number] - TID: [id number] MTDD
[2024-01-21] MEDS: MELATONIN 3 MG TABLET PO (20:27)
[2024-01-22] VITALS (9 sets, daily range): BP systolic 110–140; BP diastolic 63–98; PULSE 82–115; RESP 16–20; TEMP 36.1–36.4; O2SAT 95–115
[2024-01-22] MEDS: HYDROcodone/APAP 10/325 TAB PO ×3 (04:27→21:34)
[2024-01-22] MEDS: guaiFENesin/DM TABLET 1 EACH PO (04:27)
[2024-01-22] MEDS: CYCLObenzaPRINE 5 MG TABLET PO ×2 (04:32→15:18)
[2024-01-22] MEDS: LEVOTHYROXINE SODIUM 25 MCG TABLET PO (05:21)
[2024-01-22] MEDS: GABAPENTIN 300 MG CAPSULE 600 MG PO ×3 (05:21→21:34)
--- NOTE | 2024-01-22 08:39 | ECHO_ITS ---
Transthoracic Echo Report Ht (in): 76 Wt (lb): 258 Exam Location: Portable Status: Inpatient Anodizer: Roxann Reveles Indications: Procedure Performed: BP: 122 / 86 HR: 90 Rhythm: Sinus Technical Quality: Technically difficult study MEASUREMENTS (Male / Female) Normal Values 2D ECHO LV Diastolic Diameter PLAX 4.6 cm 4.2 - 5.9 / 3.9 - 5.3 cm LV Systolic Diameter PLAX 3.1 cm IVS Diastolic Thickness 0.9 cm 0.6 - 1.0 / 0.6 - 0.9 cm LVPW Diastolic Thickness 1.0 cm 0.6 - 1.0 / 0.6 - 0.9 cm LV Relative Wall Thickness 0.4 LVOT Diameter 2.1 cm LA Volume Index 22.9 cm?/m? 16 - 28 cm?/m? Ascending Aorta Diameter 2.7 cm M-MODE Aortic Root Diameter MM 2.7 cm LA Systolic Diameter MM 3.1 cm LA Ao Ratio MM 1.1 AV Cusp Separation MM 1.8 cm DOPPLER AV Peak Velocity 129.0 cm/s AV Peak Gradient 6.7 mmHg AV Mean Gradient 3.0 mmHg AV Velocity Time Integral 21.2 cm LVOT Peak Velocity 128.0 cm/s LVOT Peak Gradient 6.6 mmHg LVOT Velocity Time Integral 24.8 cm LVOT Cardiac Index 3054.2 cm?/min?m? AV Area Cont Eq vti 4.1 cm? AV Area Cont Eq pk 3.4 cm? MV Peak Velocity 134.0 cm/s MV Peak Gradient 7.2 mmHg MV Mean Velocity 71.8 cm/s MV Mean Gradient 3.0 mmHg MV Area PHT 3.4 cm? Mitral E Point Velocity 111.0 cm/s Mitral A Point Velocity 64.6 cm/s Mitral E to A Ratio 1.7 LV E' Lateral Velocity 11.7 cm/s Mitral E to LV E' Lateral Ratio 9.5 LV E' Septal Velocity 9.9 cm/s Mitral E to LV E' Septal Ratio 11.2 TR Peak Velocity 239.0 cm/s TR Peak Gradient 22.8 mmHg FINDINGS Left Ventricle Normal left ventricular size, wall thickness, systolic function. Septal bounce. The ejection fracti on is visually estimated at 60-65%. Right Ventricle The right ventricle is normal in size and systolic function. The estimated right ventricular systoli c pressure, 28mmHg. RAP 5. Left Atrium The left atrium is normal by two-dimensional, color flow and Doppler imaging with no structural abnormalities, no thrombus formation present. Right Atrium The right atrium is normal by two-dimensional imaging, color flow and Doppler imaging with no struct ural abnormalities, no thrombus formation present. Atrial Septum The interatrial septum appears normal with no evidence of a shunt. Aorta The aorta is normal by two-dimensional, color flow and Doppler interrogation. Mitral Valve The mitral valve is normal by two-dimensional, color flow and Doppler interrogation. There is trace mitral valve regurgitation Aortic Valve The aortic valve is trileaflet and normal by two-dimensional, color flow and Doppler interrogation. There is no significant aortic valve regurgitation. Tricuspid Valve The tricuspid valve is normal by two-dimensional, color flow and Doppler interrogation. There is tra ce tricuspid valve regurgitation. Pulmonic Valve There is mild pulmonic valve regurgitation. Vessels The pulmonary artery appears normal. The inferior vena cava pulmonary and hepatic veins appear rashid l. Pericardium The pericardium is normal by two-dimensional imaging. There is no significant pericardial effusion. CONCLUSIONS Indication: CHF exacerbation Normal LV size and function. Estimated EF 60-65%. Diastolic function appears normal. Normal RV size and function. Trace MR, TR. Mild PI. Abisai Balderas (Electronically Signed) Final Date: 22 January 2024 17:31
--- NOTE | 2024-01-22 08:42 | XR_ITS ---
Examination: AP chest single view Technique one AP portable semiupright chest single view Exam date and time: January 22, 2024 0906 hours Comparison 01/18/2024 INDICATIONS: Shortness of breath this week. FINDINGS: Mild diffuse opacity throughout the lungs Mild enlargement cardiac contour Mild vascular congestion Upper thoracic orthopedic hardware IMPRESSION: Mild diffuse bilateral pneumonia
[2024-01-22] MEDS: SODIUM BICARBONATE 650 MG TABLET PO ×2 (09:27→21:35)
[2024-01-22] MEDS: amLODIPine BESYLATE 5 MG TABLET PO (09:28)
[2024-01-22] MEDS: ACETAMINOPHEN 325 MG TABLET 650 MG PO (09:28)
[2024-01-22] MEDS: PANTOPRAZOLE 40 MG TABLET PO (09:28)
[2024-01-22] MEDS: CHOLESTYRAMINE/SUCROSE 1 PKT EA PO ×2 (09:29→21:34)
[2024-01-22] MEDS: DOXYCYCLINE 100 MG TABLET PO ×2 (09:29→21:34)
[2024-01-22] MEDS: SENNA TABLET 1 TAB PO (09:30)
[2024-01-22] MEDS: NYSTATIN CR 30 GM TUBE TOP ×2 (09:30→21:37)
[2024-01-22 09:41] LABS: Basophils % (Auto) 1 % (0-2.5); Eosinophils # (Auto) 0.1 Thou/mm3 (0.0-0.5); Eosinophils % (Auto) 1 % (0-10); Hematocrit 37.3 % (41.0-53.0); Hemoglobin 11.6 g/dL (13.5-16.0); Immature Granulocytes % (Auto) 1 % (0-0); Immature Granulocytes Auto 0.08 Thou/mm3 (0.00-0.00); Lymphocytes # (Auto) 0.7 Thou/mm3 (1.0-4.8); Lymphocytes % (Auto) 10 % (10-50); Mean Corpuscular HGB Conc 31.1 g/dl (31.0-37.0); Mean Corpuscular Hemoglobin 32.9 pg (25.0-35.0); Mean Corpuscular Volume 106 fL (80-100); Monocytes # (Auto) 0.7 Thou/mm3 (0.0-0.8); Monocytes % (Auto) 9 % (0-12); Neutrophils # (Auto) 6.1 Thou/mm3 (1.8-7.7); Neutrophils % (Auto) 79 % (37-80); Nucleated Red Blood Cell % 0 /100 WBC (0); Platelet Count 129 Thou/mm3 (140-440); RDW Standard Deviation 51.3 fL (35.1-43.9); Red Blood Count 3.53 Miln/mm3 (4.50-5.90); White Blood Count 7.8 Thou/mm3 (3.8-10.6)
[2024-01-22 10:09] LABS: Alanine Aminotransferase 11 U/L (10-49); Albumin, Serum 4.4 gm/dL (3.5-5.0); Albumin/Globulin Ratio 1.3 (1.2-2.2); Alkaline Phosphatase 155 U/L (46-116); Anion Gap 6 (7-16); Aspartate Amino Transferase 13 U/L (0-34); BUN/Creatinine Ratio 9 Ratio (12-20); Bilirubin,Total 0.2 mg/dL (0.3-1.2); Blood Urea Nitrogen 39 mg/dL (9-23); Calcium 9.7 mg/dL (8.3-10.6); Calcium (Corrected) 9.7 mg/dL (8.5-10.1); Carbon Dioxide 24.7 mMol/L (20.0-31.0); Chloride 99 mMol/L (98-107); Creatinine (Component) 4.4 mg/dL (0.6-1.3); Estimated Creatinine Clearance 32.3 mL/min (>60); Globulin 3.3 gm/dL (2.3-3.5); Glucose 98 mg/dL (74-106); Magnesium 1.8 mg/dL (1.6-2.6); Osmolality,Calculated 270 (275-295); Potassium 4.7 mMol/L (3.4-5.1); Sodium 130 mMol/L (136-145); Total Protein 7.7 gm/dL (5.7-8.2); eGFR 17 See Note
--- NOTE | 2024-01-22 10:39 | PC.NURSE ---
noted o2 saturation at 85% on room air, placed o2 mask back on, pt woke up took a deep breath, o2 saturation steadily came up to 93%, noted intermittent episodes of snoring at rest.
--- NOTE | 2024-01-22 11:26 | PC.SS ---
SS met with pt who states he does not use O2 at home. SS met with bedside nurse, Marshall and explained pt is requiring O2 testing to order home O2. Pt is currently on 4 liters of O2.
[2024-01-22 11:41] LABS: Cocci Serology, IgM Negative (Negative)
--- NOTE | 2024-01-22 12:12 | PC.SS ---
SS has sent DME order for home O2 using [facility]: [facility] [address] [place] [address] DME - Oxygen 01/22/2024 12:12 (1) [facility] [address] [place] [address] DME - Oxygen 01/22/2024 12:12 (1) [facility] [address] [facility] [address] [place] [address] DME - Oxygen 01/22/2024 12:12 (1) [facility] [address] [place] [address] DME - Oxygen 01/22/2024 12:12 (1) [facility] [address] [place] [id number] DME - Oxygen 01/22/2024 12:12 (1) [facility] [address] [facility] [address] [place] [address] DME - Oxygen 01/22/2024 12:12 (1) [facility] [address] [place] [address] DME - Oxygen
[2024-01-22] MEDS: NICOTINE PATCH 21 MG/24 HR PATCH.TD24 TOP (12:58)
[2024-01-22] MEDS: SEVELAMER CARBONATE 800 MG TABLET 2400 MG PO (12:59)
--- NOTE | 2024-01-22 13:41 | PC.SS ---
SS met with pt to inform him [employer] is pending, [facility] has declined, and [facility] has accepted. Pt is agreeable to [facility]. [facility] is starting insurance authorization. SS has provided pt with [employer] which contains [facility]'s phone#.
--- NOTE | 2024-01-22 14:44 | ESPR_ITS ---
<Statement entered by Naomi Mascorro MD - 01/22/24 15:49> Patient seen and examined at bedside. Patient is doing much better with less O2 requirements. Pending final echo read. Patient will most likely be discharged tomorrow after receiving dialysis. Patient will receive IV Gentamicin specifically 01/22 tomorrow 120mg in 100mlIV (200ml/hr) and on 01/25 HD day 120mg in 100mlIV (200ml/hr) gentamicin is to be administered along with Doxycycline 100mg po BID until 01/28/24. I discussed with and supervised the improvement intern physician who took care of this patient. I personally saw and examined the patient and discussed the assessment and plan with the entire medicine team, including my attending Dr. Muhammad, I agree with most of the assessment and plan as documented below. Naomi Mascorro M.D. PGY-2 Disclaimer: Despite multiple revisions, due to the dictation software being used, the document bellow may not be free of grammatical errors including phonetic/typographic errors. However, this does not deter from our commitment to providing health care in the patient's best interest in mind. Documentation for date of: 01/22/24 Subjective Subjective Interval history: Patient says his left wrist hurts after getting his blood drawn. He says he feels less short of breath compared to yesterday. He notes that he is withdrawing from nicotine. He says he is still in pain around his shoulder blades. He denies chest pain, fever, but endorses productive cough. Exam Vital Signs Temp Pulse Resp BP Pulse Ox O2 Del Method O2 Flow Rate 97.0 F 82 20 117/63 96 Nasal Cannula 4 01/22/24 12:01/22/24 12:01/22/24 12:01/22/24 12:01/22/24 12:01/22/24 12:01/22/24 12:00 FiO2 35 01/21/24 15:44 Narrative Exam Physical Exam General: Awake and in no acute distress. Very sedated and non-toxic appearing. HEENT: Normocephalic, atraumatic, mucous membranes moist. Heart: Regular rate and rhythm, no murmurs, rubs or gallops. Lungs: no wheezing , course crackles bilaterally in all lung chavez Abdomen: Soft, distended due to body habitus, nontender, positive bowel sounds. ?No guarding or rebound tenderness. ileostomy back with dark drainage Neurologic: Alert and oriented x3, atrophied legs, paraplegic unable to move legs Extremities: No edema, pedal pulse 2+ , Left dorsal aspect of hand with red bruise Skin: No rash or ecchymoses. Objective Labs 01/22/24 08:50 01/22/24 08:50 Labs: Laboratory Results - last 24 hr 01/22/24 01/22/24 01/22/24 08:50 08:50 08:50 WBC 7.8 RBC 3.53 L Hgb 11.6 L Hct 37.3 L MCV 106 H MCH 32.9 MCHC 31.1 RDW Std Deviation 51.3 H Plt Count 129 L Neut % (Auto) 79 Lymph % (Auto) 10 [place] % (Auto) 9 Eos % (Auto) 1 Baso % (Auto) 1 Neut # (Auto) 6.1 Lymph # (Auto) 0.7 L [place] # (Auto) 0.7 Eos # (Auto) 0.1 Baso # (Auto) 0.0 Immature Gran # (Auto) 0.08 H Absolute Nucleated RBC 0.00 Immature Gran % 1 H Nucleated RBC % 0 Sodium 130 L Cancelled Potassium 4.7 Cancelled Chloride 99 Carbon Dioxide Anion Gap BUN Creatinine Estim Creat Clear Calc eGFR BUN/Creatinine Ratio Glucose Calculated Osmolality Calcium Corrected Calcium Magnesium Total Bilirubin AST ALT Alkaline Phosphatase Total Protein Albumin Globulin Albumin/Globulin Ratio Coccidioides IgM Ab 01/22/24 01/22/24 01/22/24 08:50 08:50 08:50 WBC RBC Hgb Hct MCV MCH MCHC RDW Std Deviation Plt Count Neut % (Auto) Lymph % (Auto) [place] % (Auto) Eos % (Auto) Baso % (Auto) Neut # (Auto) Lymph # (Auto) [place] # (Auto) Eos # (Auto) Baso # (Auto) Immature Gran # (Auto) Absolute Nucleated RBC Immature Gran % Nucleated RBC % Sodium Potassium Chloride Cancelled Carbon Dioxide 24.7 Cancelled Anion Gap 6 L Cancelled BUN 39 H Creatinine Estim Creat Clear Calc eGFR BUN/Creatinine Ratio Glucose Calculated Osmolality Calcium Corrected Calcium Magnesium Total Bilirubin AST ALT Alkaline Phosphatase Total Protein Albumin Globulin Albumin/Globulin Ratio Coccidioides IgM Ab 01/22/24 01/22/24 01/22/24 08:50 08:50 08:50 WBC RBC Hgb Hct MCV MCH MCHC RDW Std Deviation Plt Count Neut % (Auto) Lymph % (Auto) [place] % (Auto) Eos % (Auto) Baso % (Auto) Neut # (Auto) Lymph # (Auto) [place] # (Auto) Eos # (Auto) Baso # (Auto) Immature Gran # (Auto) Absolute Nucleated RBC Immature Gran % Nucleated RBC % Sodium Potassium Chloride Carbon Dioxide Anion Gap BUN Cancelled Creatinine 4.4 H* Cancelled Estim Creat Clear Calc 32.3 L Cancelled eGFR 17 L BUN/Creatinine Ratio Glucose Calculated Osmolality Calcium Corrected Calcium Magnesium Total Bilirubin AST ALT Alkaline Phosphatase Total Protein Albumin Globulin Albumin/Globulin Ratio Coccidioides IgM Ab 01/22/24 01/22/24 01/22/24 08:50 08:50 08:50 WBC RBC Hgb Hct MCV MCH MCHC RDW Std Deviation Plt Count Neut % (Auto) Lymph % (Auto) [place] % (Auto) Eos % (Auto) Baso % (Auto) Neut # (Auto) Lymph # (Auto) [place] # (Auto) Eos # (Auto) Baso # (Auto) Immature Gran # (Auto) Absolute Nucleated RBC Immature Gran % Nucleated RBC % Sodium Potassium Chloride Carbon Dioxide Anion Gap BUN Creatinine Estim Creat Clear Calc eGFR Cancelled BUN/Creatinine Ratio 9 L Cancelled Glucose 98 Cancelled Calculated Osmolality 270 L Calcium Corrected Calcium Magnesium Total Bilirubin AST ALT Alkaline Phosphatase Total Protein Albumin Globulin Albumin/Globulin Ratio Coccidioides IgM Ab 01/22/24 01/22/24 01/22/24 08:50 08:50 08:50 WBC RBC Hgb Hct MCV MCH MCHC RDW Std Deviation Plt Count Neut % (Auto) Lymph % (Auto) [place] % (Auto) Eos % (Auto) Baso % (Auto) Neut # (Auto) Lymph # (Auto) [place] # (Auto) Eos # (Auto) Baso # (Auto) Immature Gran # (Auto) Absolute Nucleated RBC Immature Gran % Nucleated RBC % Sodium Potassium Chloride Carbon Dioxide Anion Gap BUN Creatinine Estim Creat Clear Calc eGFR BUN/Creatinine Ratio Glucose Calculated Osmolality Cancelled Calcium 9.7 Cancelled Corrected Calcium 9.7 Cancelled Magnesium 1.8 Total Bilirubin AST ALT Alkaline Phosphatase Total Protein Albumin Globulin Albumin/Globulin Ratio Coccidioides IgM Ab 01/22/24 01/22/24 01/22/24 08:50 08:50 08:50 WBC RBC Hgb Hct MCV MCH MCHC RDW Std Deviation Plt Count Neut % (Auto) Lymph % (Auto) [place] % (Auto) Eos % (Auto) Baso % (Auto) Neut # (Auto) Lymph # (Auto) [place] # (Auto) Eos # (Auto) Baso # (Auto) Immature Gran # (Auto) Absolute Nucleated RBC Immature Gran % Nucleated RBC % Sodium Potassium Chloride Carbon Dioxide Anion Gap BUN Creatinine Estim Creat Clear Calc eGFR BUN/Creatinine Ratio Glucose Calculated Osmolality Calcium Corrected Calcium Magnesium Cancelled Total Bilirubin 0.2 L Cancelled AST 13 Cancelled ALT 11 Alkaline Phosphatase Total Protein Albumin Globulin Albumin/Globulin Ratio Coccidioides IgM Ab 01/22/24 01/22/24 01/22/24 08:50 08:50 08:50 WBC RBC Hgb Hct MCV MCH MCHC RDW Std Deviation Plt Count Neut % (Auto) Lymph % (Auto) [place] % (Auto) Eos % (Auto) Baso % (Auto) Neut # (Auto) Lymph # (Auto) [place] # (Auto) Eos # (Auto) Baso # (Auto) Immature Gran # (Auto) Absolute Nucleated RBC Immature Gran % Nucleated RBC % Sodium Potassium Chloride Carbon Dioxide Anion Gap BUN Creatinine Estim Creat Clear Calc eGFR BUN/Creatinine Ratio Glucose Calculated Osmolality Calcium Corrected Calcium Magnesium Total Bilirubin AST ALT Cancelled Alkaline Phosphatase 155 H Cancelled Total Protein 7.7 Cancelled Albumin 4.4 D Globulin Albumin/Globulin Ratio Coccidioides IgM Ab 01/22/24 01/22/24 01/22/24 08:50 08:50 08:50 WBC RBC Hgb Hct MCV MCH MCHC RDW Std Deviation Plt Count Neut % (Auto) Lymph % (Auto) [place] % (Auto) Eos % (Auto) Baso % (Auto) Neut # (Auto) Lymph # (Auto) [place] # (Auto) Eos # (Auto) Baso # (Auto) Immature Gran # (Auto) Absolute Nucleated RBC Immature Gran % Nucleated RBC % Sodium Potassium Chloride Carbon Dioxide Anion Gap BUN Creatinine Estim Creat Clear Calc eGFR BUN/Creatinine Ratio Glucose Calculated Osmolality Calcium Corrected Calcium Magnesium Total Bilirubin AST ALT Alkaline Phosphatase Total Protein Albumin Cancelled Globulin 3.3 Cancelled Albumin/Globulin Ratio 1.3 Cancelled Coccidioides IgM Ab Negative Quality Measures Quality Measures none Assessment & Plan Problem List (1) Urinary tract infection: Status: Acute (2) Colonization with multidrug-resistant bacteria: Status: Acute (3) Renal calculus, bilateral: Status: Acute (4) MRSA (methicillin resistant staph aureus) culture positive: Status: Acute (5) Hypotension: Status: Acute (6) Paraplegia: Status: Acute (7) Pneumonia: Status: Acute (8) Sinus tachycardia: Status: Acute (9) Back pain: Status: Acute (10) ESRD (end stage renal disease): Status: Acute (11) Hyponatremia: Status: Acute Assessment Current Active Medications: Generic Name Dose Route Start Last Admin Trade Name Freq PRN Reason Stop Dose Admin Acetaminophen 650 mg 01/22/24 08:01 01/22/24 09:28 Acetaminophen 325 Mg Tablet PO 02/17/24 15:29 650 mg Q6H PRN Administration Fever >101.5 and pain 1-10 Acetaminophen 650 mg 01/22/24 08:03 Acetaminophen Supp 650 Mg Supp NC 02/17/24 15:29 Q6H PRN PAIN SCALE 1-3 (mild Hydrocodone Bitart/Acetaminophen 1 tab 01/22/24 08:04 Hydrocodone/Apap 10/325 Tab PO 01/23/24 22:59 Q6HR PRN Pain,severe 7-10 Albuterol/Ipratropium 3 ml 01/19/24 03:33 01/19/24 10:52 Albuterol/Ipratropium (Duoneb) Rt [place] 3 Ml Nebu INH 02/18/24 06:59 3 ml Q4HRRT PRN Administration SHORTNESS OF BREATH OR WHEEZE Amlodipine Besylate 5 mg 01/20/24 09:15 01/22/24 09:28 Amlodipine Besylate 5 Mg Tablet PO 02/19/24 09:14 5 mg QDAY FOREIGN Administration Cholestyramine Resin 1 pkt 01/19/24 13:15 01/22/24 09:29 Cholestyramine/Sucrose 1 Pkt Ea PO 02/18/24 13:14 1 pkt BID FOREIGN Administration Cyclobenzaprine HCl 5 mg 01/19/24 08:40 01/22/24 04:32 Cyclobenzaprine 5 Mg Tablet PO 02/18/24 08:39 5 mg Q8HR PRN Administration Muscle Spasm Diclofenac Sodium 0 gm 01/22/24 10:05 Diclofenac 1% Top Gel 100 Gm Tube TOP 02/21/24 10:04 DAILY PRN PAIN Doxycycline Hyclate 100 mg 01/21/24 21:00 01/22/24 09:29 Doxycycline 100 Mg Tablet PO 01/28/24 20:59 100 mg BID FOREIGN Administration Gabapentin 600 mg 01/19/24 06:00 01/22/24 12:59 Gabapentin 300 Mg Capsule PO 02/18/24 05:59 600 mg TID FOREIGN Administration Guaifenesin/Dextromethorphan 1 each 01/18/24 23:39 01/22/24 04:27 Guaifenesin/Dm Tablet PO 02/17/24 23:38 1 each BID PRN Administration COUGH Gentamicin Sulfate/Sodium Chloride 120 mg in 100 mls @ 200 mls/hr 01/23/24 14:00 Gentamicin/Ns 120 Mg Ivpb IV 01/30/24 13:59 MoFr FOREIGN Levothyroxine Sodium 25 mcg 01/19/24 06:00 01/22/24 05:21 Levothyroxine Sodium 25 Mcg Tablet PO 02/18/24 05:59 25 mcg ACBR FOREIGN Administration Melatonin 3 mg 01/19/24 21:00 01/21/24 20:27 Melatonin 3 Mg Tablet PO 02/18/24 20:59 3 mg HS FOREIGN Administration Mirtazapine 15 mg 01/19/24 20:22 Mirtazapine 15 Mg Tablet PO 02/18/24 20:59 HS PRN AGITATION (SEVERE) Nicotine 21 mg 01/22/24 10:30 01/22/24 12:58 Nicotine Patch 21 Mg/24 Hr Patch.Td24 TOP 02/21/24 10:29 21 mg QDAY FOREIGN Administration Nystatin 0 gm 01/20/24 11:30 01/22/24 09:30 Nystatin Cr 30 Gm Tube TOP 02/19/24 11:29 30 gram BID FOREIGN Administration Ondansetron HCl 4 mg 01/18/24 15:30 Ondansetron Inj 2 Mg/Ml Inj 2 Ml IV 02/17/24 15:29 Q6H PRN NAUSEA OR VOMITING Protocol Pantoprazole Sodium 40 mg 01/19/24 09:00 01/22/24 09:28 Pantoprazole 40 Mg Tablet PO 02/18/24 08:59 40 mg QDAY FOREIGN Administration Pharmacy Consult 1 each 01/21/24 14:45 Pharmacy To Dose Gentamicin IV 02/20/24 14:44 QDAY PRN CONSULT Sennosides 1 tab 01/19/24 09:00 01/22/24 09:30 Senna Tablet PO 02/18/24 08:59 1 tab QDAY FOREIGN Administration Protocol Sevelamer Carbonate 2,400 mg 01/19/24 17:45 01/22/24 12:59 Sevelamer Carbonate 800 Mg Tablet PO 02/18/24 17:44 2,400 mg TIDWM FOREIGN Administration Sodium Bicarbonate 650 mg 01/19/24 09:00 01/22/24 09:27 Sodium Bicarbonate 650 Mg Tablet PO 02/18/24 08:59 650 mg BID FOREIGN Administration Sodium Chloride 3 ml 01/18/24 15:30 01/18/24 18:26 Sodium Chloride Rt [place] 0.9% 3 Ml Nebu INH 02/17/24 15:29 3 ml PRN PRN Administration SOLN Additional Assessment: 33 year old male PMHx paraplegia since age 13, ESRD on HD since 2019, recurrent nephrolithiasis w/ UTI and pyelonephritis, tunneled catheter with MRSA infection, abdominal necrotizing fasciitis s/p extensive skin graft, s/p ileostomy presented to ED with hematuria x 1 day. Notably he visited the ED november 2023 for UTI and was discharged on bactrim, subsequent cultures showed that he had multidrug resistant infection with klebsiella, pseudomonas, e coli. Arrived to ED afebrile, non toxic appearing with normal WBC, tachycardic at 101, chronically high creatinine of 3.5 BUN 27. UA with 3+ blood and suggestive of UTI , CT A/P showed no hydronephrosis, but with bilateral renal calculi, and cystitis and UTI. Due to history of MDR bacteria, and hematuria patient admitted to obs for IV antibiotic treatment. Patient gets HD fri , friday, followed by nephro. Additionally had CXR and CT showing bibasilar pneumonia with small effusions, and mild heart failure pattern, was diuresed 01/19 and 01/20 IV lasix. Urine culture returned positive for E. coli, resistant to fluoroquinolones. ID recommended using gentamicin only on HD days, meropenem was stopped. Patient is to continue previous outpatient medications and get a sleep study for suspicion of MERVIN. Plan #UTI #Bilateral Renal Calculi #Hematuria History of recurrent UTI and calculi, most recently in november was discharged on bactrim. previous culture showed MDR klebisella, pseudomonas, e.coli. does not meet sepsis criteria, 1/4 SIRS, non toxic appearing. UA with 3+ blood and suggestive of UTI , CT A/P showed no hydronephrosis, but with bilateral renal calculi, and cystitis. cuture returned positive for e.coli resistant to cipro and levofloxacin plan: - Seen by Dr. Pelayo , ID, appreciate recs - switched to gentamicin on dialysis days only- specifically 01/22 tomorrow 120mg in 100mlIV (200ml/hr) gentamicin is to be administered , and on 01/25 HD day 120mg in 100mlIV (200ml/hr) gentamicin is to be administered - doxycycline 100mg po BID until 01/27 - CBC/ Renal panel - norco q6for pain #Pneumonia with shortness of breath, coarse breath sounds on exam. no fever, no malaise CT chest shows bibasilar, with small effusions WBC improved CXR 01/22/24 shows mild pneumonia, improving plan: - continue meropenem and doxy, will empirically cover the pneumonia as well at UTI. - Chest physiotherapy #Pulmonary edema symptomatic shortness of breath, coarse crackles on exam, cxr w pulmonary edema or infiltrate with hilar widening seen CT chest shows mild heart failure pattern. BNP 172 last echo 2018 showed mitral +tricuspid regurge, EF 60-65 symptomatic sob improvement with lasix 01/19 and 01/20 plan: - order echo today , read is pending. #ESRD on HD since 2019 IJ cath placed in 2019 creatinine 3.5, BUN 27 HD fri and friday under Dr. Jeff followed by nephro plan: - Nephro consulted, appreciate recs , HD friday 1.5L - HD plan for tomorrow - continue home meds as listed - sodium bicarb 650 po BID - sevelamer 2400mg po TID - cincalcet 30 mg po daily - lokelma 10g po daily - MG Oxide 400mg PO BID #Paraplegia #Hypotension #chronic thoracic pain since age 13 , SCI T5-T6 s/p laminectomy and fusion plan: - continue gabapentin 600mg TID - home Midodrine 10mg prn - norco q6 - cyclobenzaprine 5mg po BID #tobacco user plan: - added nicotine patch 21mg #Hyponatremia 130 , underwent HD friday likely from HD/ underlying infection. monitor , no fluids as po intake ok and has pulmonary edema. #Intertrigo erythematous , moist and folded flank and axial skin. plan: - nystatin cream topical BID #hypothyroidism TSH 1.62 12/2022 plan: - continue home levothyroxine 25mcg #HTN 162/96 01/20/2024 plan: - amlodipine 5mg Case discussed in detail with attending Dr. Muhammad Attending Provider Attestation/Addendum I have examined the patient, reviewed labs and imaging findings, discussed the case with the resident(s), and reviewed entered orders. I agree with the plan of care as outlined in this note, with these additional summaries/recommendations: Patient seen at bedside. Noted to be fatigued/tired and likely has undiagnosed MERVIN. He will need to follow-up with PCP for sleep study once medically cleared for discharge. We will continue IV antibiotics for complicated urinary tract infection and community-acquired pneumonia. Infectious disease following patient to receive IV gentamicin during hemodialysis sessions for 7 days and oral doxycycline. Currently on 4 L nasal cannula and we will wean oxygen as tolerated. Order echocardiogram to rule out CHF. Continue breathing treatments and Mucinex. IV Lasix 40 mg x 1 today for shortness of breath. Patient reports improvement in muscle spasms, continue Flexeril. Nephrology following for end- stage renal disease on hemodialysis. On phosphate binders and sodium bicarb. Noted drop in hemoglobin and platelets today, repeat hematology panel in AM. We will continue to wean supplemental oxygen and anticipate discharge in the next [address] Muhammad
--- NOTE | 2024-01-22 16:13 | PC.SS ---
SS has faxed physician note to [facility] indicating pt will require IV antibiotic during dialysis. Per shell's note, Patient will receive IV Gentamicin specifically 01/22 tomorrow 120mg in 100mlIV (200ml/hr) and on 01/25 HD day 120mg in 100mlIV (200ml/hr) gentamicin is to be administered along with Doxycycline 100mg po BID until 01/28/24. SS has also sent physician note using [facility], [place].
--- NOTE | 2024-01-22 16:22 | PC.SS ---
SS received phone call from Ashley at [facility] who states they will arrange delivery for home O2 tomorrow to patient's home. Pt is aware and provided mom's phone number to coordinate home O2 delivery.
--- NOTE | 2024-01-22 17:48 | PC.NURSE ---
pt denied evening Renvela medication, pt self administered Renvela with home supply that he had at bedside, Dr. Muhammad notified of pt self administering home meds.
--- NOTE | 2024-01-22 20:50 | ESPR_ITS ---
Documentation for date of: 01/22/24 Subjective Subjective Interval history: Mr. Medrano is a 33-year-old male with a past medical history of paraplegia since the age of 13 (intubation scar noted on his neck), ESRD on Dialysis (Friday- under Dr. Jeff), recurrent nephrolithiasis, history of pyelonephritis, and hx catheter associated complicated urinary tract infections, history of abdominal wall necrotizing fasciitis post skin graft, s/p ileostomy. Admitted on (01/18/2024) catheter associated complicated urinary tract infection. 01/21/2024 took over care from Dr. Alonso. Patient currently seen in medical floor. Resting comfortably. He gets dialysis twice weekly. 01/22/2024 Patient seen at bedside, lying in bed. He complains of pain in the wrist from blood being drawn, as well as some productive cough. He denies chest pain, reports improvement in shortness of breath. Had one session of hemodialysis done on , due for another tomorrow 01/22. Exam Vital Signs Temp Pulse Resp BP Pulse Ox O2 Del Method O2 Flow Rate 97.1 F 108 H 17 110/71 96 Nasal Cannula 4 01/22/24 20:00 01/22/24 20:00 01/22/24 20:00 01/22/24 20:00 01/22/24 20:00 01/22/24 20:00 01/22/24 20:00 FiO2 35 01/21/24 15:44 Narrative Exam GENERAL: AAOX3 NEURO: Paraplegic, atrophied legs HEENT: Moist mucosa. Eyes open, symmetrical, & clear. Oxy mask on CARDIO: No chest pain on palpation. Heart RRR, no obvious murmurs PULM: CTAB GI: Abdomen soft, nondistended, no pain on palpation, Ileostomy bag with drainage URO/MUD TRUCKER:: No further abnormalities noted. SKIN/MSK/EXT: slightly edematous upper arms, no pain on palpation. Pedal pulses present B/L Objective Labs 01/23/24 04:43 01/23/24 04:43 Labs: Laboratory Results - last 24 hr 01/22/24 01/22/24 01/22/24 08:50 08:50 08:50 WBC 7.8 RBC 3.53 L Hgb 11.6 L Hct 37.3 L MCV 106 H MCH 32.9 MCHC 31.1 RDW Std Deviation 51.3 H Plt Count 129 L Neut % (Auto) 79 Lymph % (Auto) 10 [place] % (Auto) 9 Eos % (Auto) 1 Baso % (Auto) 1 Neut # (Auto) 6.1 Lymph # (Auto) 0.7 L [place] # (Auto) 0.7 Eos # (Auto) 0.1 Baso # (Auto) 0.0 Immature Gran # (Auto) 0.08 H Absolute Nucleated RBC 0.00 Immature Gran % 1 H Nucleated RBC % 0 Sodium 130 L Cancelled Potassium 4.7 Cancelled Chloride 99 Carbon Dioxide Anion Gap BUN Creatinine Estim Creat Clear Calc eGFR BUN/Creatinine Ratio Glucose Calculated Osmolality Calcium Corrected Calcium Magnesium Total Bilirubin AST ALT Alkaline Phosphatase Total Protein Albumin Globulin Albumin/Globulin Ratio Coccidioides IgM Ab 01/22/24 01/22/24 01/22/24 08:50 08:50 08:50 WBC RBC Hgb Hct MCV MCH MCHC RDW Std Deviation Plt Count Neut % (Auto) Lymph % (Auto) [place] % (Auto) Eos % (Auto) Baso % (Auto) Neut # (Auto) Lymph # (Auto) [place] # (Auto) Eos # (Auto) Baso # (Auto) Immature Gran # (Auto) Absolute Nucleated RBC Immature Gran % Nucleated RBC % Sodium Potassium Chloride Cancelled Carbon Dioxide 24.7 Cancelled Anion Gap 6 L Cancelled BUN 39 H Creatinine Estim Creat Clear Calc eGFR BUN/Creatinine Ratio Glucose Calculated Osmolality Calcium Corrected Calcium Magnesium Total Bilirubin AST ALT Alkaline Phosphatase Total Protein Albumin Globulin Albumin/Globulin Ratio Coccidioides IgM Ab 01/22/24 01/22/24 01/22/24 08:50 08:50 08:50 WBC RBC Hgb Hct MCV MCH MCHC RDW Std Deviation Plt Count Neut % (Auto) Lymph % (Auto) [place] % (Auto) Eos % (Auto) Baso % (Auto) Neut # (Auto) Lymph # (Auto) [place] # (Auto) Eos # (Auto) Baso # (Auto) Immature Gran # (Auto) Absolute Nucleated RBC Immature Gran % Nucleated RBC % Sodium Potassium Chloride Carbon Dioxide Anion Gap BUN Cancelled Creatinine 4.4 H* Cancelled Estim Creat Clear Calc 32.3 L Cancelled eGFR 17 L BUN/Creatinine Ratio Glucose Calculated Osmolality Calcium Corrected Calcium Magnesium Total Bilirubin AST ALT Alkaline Phosphatase Total Protein Albumin Globulin Albumin/Globulin Ratio Coccidioides IgM Ab 01/22/24 01/22/24 01/22/24 08:50 08:50 08:50 WBC RBC Hgb Hct MCV MCH MCHC RDW Std Deviation Plt Count Neut % (Auto) Lymph % (Auto) [place] % (Auto) Eos % (Auto) Baso % (Auto) Neut # (Auto) Lymph # (Auto) [place] # (Auto) Eos # (Auto) Baso # (Auto) Immature Gran # (Auto) Absolute Nucleated RBC Immature Gran % Nucleated RBC % Sodium Potassium Chloride Carbon Dioxide Anion Gap BUN Creatinine Estim Creat Clear Calc eGFR Cancelled BUN/Creatinine Ratio 9 L Cancelled Glucose 98 Cancelled Calculated Osmolality 270 L Calcium Corrected Calcium Magnesium Total Bilirubin AST ALT Alkaline Phosphatase Total Protein Albumin Globulin Albumin/Globulin Ratio Coccidioides IgM Ab 01/22/24 01/22/24 01/22/24 08:50 08:50 08:50 WBC RBC Hgb Hct MCV MCH MCHC RDW Std Deviation Plt Count Neut % (Auto) Lymph % (Auto) [place] % (Auto) Eos % (Auto) Baso % (Auto) Neut # (Auto) Lymph # (Auto) [place] # (Auto) Eos # (Auto) Baso # (Auto) Immature Gran # (Auto) Absolute Nucleated RBC Immature Gran % Nucleated RBC % Sodium Potassium Chloride Carbon Dioxide Anion Gap BUN Creatinine Estim Creat Clear Calc eGFR BUN/Creatinine Ratio Glucose Calculated Osmolality Cancelled Calcium 9.7 Cancelled Corrected Calcium 9.7 Cancelled Magnesium 1.8 Total Bilirubin AST ALT Alkaline Phosphatase Total Protein Albumin Globulin Albumin/Globulin Ratio Coccidioides IgM Ab 01/22/24 01/22/24 01/22/24 08:50 08:50 08:50 WBC RBC Hgb Hct MCV MCH MCHC RDW Std Deviation Plt Count Neut % (Auto) Lymph % (Auto) [place] % (Auto) Eos % (Auto) Baso % (Auto) Neut # (Auto) Lymph # (Auto) [place] # (Auto) Eos # (Auto) Baso # (Auto) Immature Gran # (Auto) Absolute Nucleated RBC Immature Gran % Nucleated RBC % Sodium Potassium Chloride Carbon Dioxide Anion Gap BUN Creatinine Estim Creat Clear Calc eGFR BUN/Creatinine Ratio Glucose Calculated Osmolality Calcium Corrected Calcium Magnesium Cancelled Total Bilirubin 0.2 L Cancelled AST 13 Cancelled ALT 11 Alkaline Phosphatase Total Protein Albumin Globulin Albumin/Globulin Ratio Coccidioides IgM Ab 01/22/24 01/22/24 01/22/24 08:50 08:50 08:50 WBC RBC Hgb Hct MCV MCH MCHC RDW Std Deviation Plt Count Neut % (Auto) Lymph % (Auto) [place] % (Auto) Eos % (Auto) Baso % (Auto) Neut # (Auto) Lymph # (Auto) [place] # (Auto) Eos # (Auto) Baso # (Auto) Immature Gran # (Auto) Absolute Nucleated RBC Immature Gran % Nucleated RBC % Sodium Potassium Chloride Carbon Dioxide Anion Gap BUN Creatinine Estim Creat Clear Calc eGFR BUN/Creatinine Ratio Glucose Calculated Osmolality Calcium Corrected Calcium Magnesium Total Bilirubin AST ALT Cancelled Alkaline Phosphatase 155 H Cancelled Total Protein 7.7 Cancelled Albumin 4.4 D Globulin Albumin/Globulin Ratio Coccidioides IgM Ab 01/22/24 01/22/24 01/22/24 08:50 08:50 08:50 WBC RBC Hgb Hct MCV MCH MCHC RDW Std Deviation Plt Count Neut % (Auto) Lymph % (Auto) [place] % (Auto) Eos % (Auto) Baso % (Auto) Neut # (Auto) Lymph # (Auto) [place] # (Auto) Eos # (Auto) Baso # (Auto) Immature Gran # (Auto) Absolute Nucleated RBC Immature Gran % Nucleated RBC % Sodium Potassium Chloride Carbon Dioxide Anion Gap BUN Creatinine Estim Creat Clear Calc eGFR BUN/Creatinine Ratio Glucose Calculated Osmolality Calcium Corrected Calcium Magnesium Total Bilirubin AST ALT Alkaline Phosphatase Total Protein Albumin Cancelled Globulin 3.3 Cancelled Albumin/Globulin Ratio 1.3 Cancelled Coccidioides IgM Ab Negative Quality Measures Quality Measures none Assessment & Plan Assessment Current Active Medications: Generic Name Dose Route Start Last Admin Trade Name Freq PRN Reason Stop Dose Admin Acetaminophen 650 mg 01/22/24 08:01 01/22/24 09:28 Acetaminophen 325 Mg Tablet PO 02/17/24 15:29 650 mg Q6H PRN Administration Fever >101.5 and pain 1-10 Acetaminophen 650 mg 01/22/24 08:03 Acetaminophen Supp 650 Mg Supp VA 02/17/24 15:29 Q6H PRN PAIN SCALE 1-3 (mild Hydrocodone Bitart/Acetaminophen 1 tab 01/22/24 08:04 01/22/24 15:18 Hydrocodone/Apap 10/325 Tab PO 01/23/24 22:59 1 tab Q6HR PRN Administration Pain,severe 7-10 Albuterol/Ipratropium 3 ml 01/19/24 03:33 01/19/24 10:52 Albuterol/Ipratropium (Duoneb) Rt [place]asha[place] 3 Ml Nebu INH 02/18/24 06:59 3 ml Q4HRRT PRN Administration SHORTNESS OF BREATH OR WHEEZE Amlodipine Besylate 5 mg 01/20/24 09:15 01/22/24 09:28 Amlodipine Besylate 5 Mg Tablet PO 02/19/24 09:14 5 mg QDAY FOREIGN Administration Cholestyramine Resin 1 pkt 01/19/24 13:15 01/22/24 09:29 Cholestyramine/Sucrose 1 Pkt Ea PO 02/18/24 13:14 1 pkt BID FOREIGN Administration Cyclobenzaprine HCl 5 mg 01/19/24 08:40 01/22/24 15:18 Cyclobenzaprine 5 Mg Tablet PO 02/18/24 08:39 5 mg Q8HR PRN Administration Muscle Spasm Diclofenac Sodium 0 gm 01/22/24 10:05 Diclofenac 1% Top Gel 100 Gm Tube TOP 02/21/24 10:04 DAILY PRN PAIN Doxycycline Hyclate 100 mg 01/21/24 21:00 01/22/24 09:29 Doxycycline 100 Mg Tablet PO 01/28/24 20:59 100 mg BID FOREIGN Administration Gabapentin 600 mg 01/19/24 06:00 01/22/24 12:59 Gabapentin 300 Mg Capsule PO 02/18/24 05:59 600 mg TID FOREIGN Administration Guaifenesin/Dextromethorphan 1 each 01/18/24 23:39 01/22/24 04:27 Guaifenesin/Dm Tablet PO 02/17/24 23:38 1 each BID PRN Administration COUGH Gentamicin Sulfate/Sodium Chloride 120 mg in 100 mls @ 200 mls/hr 01/23/24 14:00 Gentamicin/Ns 120 Mg Ivpb IV 01/30/24 13:59 MoFr FOREIGN Levothyroxine Sodium 25 mcg 01/19/24 06:00 01/22/24 05:21 Levothyroxine Sodium 25 Mcg Tablet PO 02/18/24 05:59 25 mcg ACBR FOREIGN Administration Melatonin 3 mg 01/19/24 21:00 01/21/24 20:27 Melatonin 3 Mg Tablet PO 02/18/24 20:59 3 mg HS FOREIGN Administration Mirtazapine 15 mg 01/19/24 20:22 Mirtazapine 15 Mg Tablet PO 02/18/24 20:59 HS PRN AGITATION (SEVERE) Nicotine 21 mg 01/22/24 10:30 01/22/24 12:58 Nicotine Patch 21 Mg/24 Hr Patch.Td24 TOP 02/21/24 10:29 21 mg QDAY FOREIGN Administration Nystatin 0 gm 01/20/24 11:30 01/22/24 09:30 Nystatin Cr 30 Gm Tube TOP 02/19/24 11:29 30 gram BID FOREIGN Administration Ondansetron HCl 4 mg 01/18/24 15:30 Ondansetron Inj 2 Mg/Ml Inj 2 Ml IV 02/17/24 15:29 Q6H PRN NAUSEA OR VOMITING Protocol Pantoprazole Sodium 40 mg 01/19/24 09:00 01/22/24 09:28 Pantoprazole 40 Mg Tablet PO 02/18/24 08:59 40 mg QDAY FOREIGN Administration Pharmacy Consult 1 each 01/21/24 14:45 Pharmacy To Dose Gentamicin IV 02/20/24 14:44 QDAY PRN CONSULT Sennosides 1 tab 01/19/24 09:00 01/22/24 09:30 Senna Tablet PO 02/18/24 08:59 1 tab QDAY FOREIGN Administration Protocol Sevelamer Carbonate 2,400 mg 01/19/24 17:45 01/22/24 17:45 Sevelamer Carbonate 800 Mg Tablet PO 02/18/24 17:44 Not Given TIDWM FOREIGN Sodium Bicarbonate 650 mg 01/19/24 09:00 01/22/24 09:27 Sodium Bicarbonate 650 Mg Tablet PO 02/18/24 08:59 650 mg BID FOREIGN Administration Sodium Chloride 3 ml 01/18/24 15:30 01/18/24 18:26 Sodium Chloride Rt [place] 0.9% 3 Ml Nebu INH 02/17/24 15:29 3 ml PRN PRN Administration SOLN Plan Summary: The patient is a 33-year-old male with a past medical history of paraplegia since the age of 13 (intubation scar noted on his chest), ESRD on Dialysis (Friday), recurrent nephrolithiasis, history of pyelonephritis, and hx catheter associated complicated urinary tract infections, history of abdominal wall necrotizing fasciitis post skin graft, s/p ileostomy. Admitted on (01/18/2024) catheter associated complicated urinary tract infection and gross hematuria. #ESRD on Dialysis (Friday and Friday) #Electrolyte Disturances Etiology: difficult to determine if patient has secondary underlying conditions such diabetes. Patient has numerous bilateral renal calculi and indwelling brody catheter use puts patients at increased for calculi stones, specifically Struvite stones. Patient stated he progressed towards ESRD due to repeated calculi and scar formation, more likely given CT Abdomen/Pelvis shower parenchymal scars. DDx: No known history of diabetes or other intrinsic kidney disease. Diagnostics: -Ct Abdomen/Pelvis: Significant bilateral renal parenchymal scar formation, numerous bilateral renal calculi -Had dialysis on 01/18-ultrafiltration of 1.5L Plan: -Dialysis tomorrow 01/23/2024 -CT sodium Bicarbonate 650 PO BID -CT sevelamer 800 PO TID WM -Renal dose medication -avoid nephrotoxic medications #hypo-somolar Mild Hyponatremia Sodium today- 130.Likely due to ESRD Plan no acute intervention #Catheter associated complicated, urinary tract infection #hx of nephrolithiasis & pyelonephritis #Paraplegia #hypotension #hypothyroidism Health Maintenance: Disp: Pt is currently admitted to floors for further management of catheter associated, complicated, uninary tract infection, awaiting improved urinary symptoms FEN: Renal Diet DVT: on subQ heparin GI: Pantoprazole 40 PO QDay Lines: Brody catheter, and peripheral lines Code: Full Code Case was discussed with attending physician, Dr Haines. Viry Sawyer MD PGY-1 Attending Provider Attestation/Addendum Patient seen and examined with resident physician Dr. Sawyer. Note reviewed, agree with findings and recommendations. Next dialysis scheduled for tomorrow
[2024-01-22] MEDS: MELATONIN 3 MG TABLET PO (21:34)
[2024-01-23] VITALS (23 sets, daily range): BP systolic 90–152; BP diastolic 54–103; PULSE 67–106; RESP 16–19; TEMP 36.1–37; O2SAT 96–99
[2024-01-23] MEDS: LEVOTHYROXINE SODIUM 25 MCG TABLET PO (05:16)
[2024-01-23] MEDS: HYDROcodone/APAP 10/325 TAB PO ×2 (05:16→12:26)
[2024-01-23] MEDS: GABAPENTIN 300 MG CAPSULE 600 MG PO ×2 (05:16→14:13)
[2024-01-23] MEDS: CYCLObenzaPRINE 5 MG TABLET PO ×2 (05:19→13:00)
[2024-01-23 05:46] LABS: Basophils % (Auto) 0 % (0-2.5); Eosinophils # (Auto) 0.1 Thou/mm3 (0.0-0.5); Eosinophils % (Auto) 2 % (0-10); Hematocrit 35.8 % (41.0-53.0); Hemoglobin 11.1 g/dL (13.5-16.0); Immature Granulocytes % (Auto) 1 % (0-0); Immature Granulocytes Auto 0.07 Thou/mm3 (0.00-0.00); Lymphocytes # (Auto) 0.7 Thou/mm3 (1.0-4.8); Lymphocytes % (Auto) 9 % (10-50); Mean Corpuscular Hemoglobin 32.8 pg (25.0-35.0); Mean Corpuscular Volume 106 fL (80-100); Monocytes # (Auto) 0.8 Thou/mm3 (0.0-0.8); Monocytes % (Auto) 10 % (0-12); Neutrophils # (Auto) 5.8 Thou/mm3 (1.8-7.7); Neutrophils % (Auto) 78 % (37-80); Nucleated Red Blood Cell % 0 /100 WBC (0); Platelet Count 125 Thou/mm3 (140-440); Red Blood Count 3.38 Miln/mm3 (4.50-5.90); White Blood Count 7.4 Thou/mm3 (3.8-10.6)
[2024-01-23 06:07] LABS: Anion Gap 4 (7-16); BUN/Creatinine Ratio 10 Ratio (12-20); Blood Urea Nitrogen 47 mg/dL (9-23); Calcium 9.5 mg/dL (8.3-10.6); Carbon Dioxide 25.6 mMol/L (20.0-31.0); Chloride 104 mMol/L (98-107); Creatinine (Component) 4.8 mg/dL (0.6-1.3); Estimated Creatinine Clearance 29.6 mL/min (>60); Glucose 98 mg/dL (74-106); Osmolality,Calculated 280 (275-295); Potassium 5.1 mMol/L (3.4-5.1); Sodium 134 mMol/L (136-145); eGFR 15 See Note
[2024-01-23] MEDS: SEVELAMER CARBONATE 800 MG TABLET 2400 MG PO ×3 (07:59→17:09)
--- NOTE | 2024-01-23 08:18 | PC.NURSE ---
Pt was seen and examined by Dr Haines. Ordered not to remove fluid, just clearances. UF goal changed to 400 ml, UFR at 90. VS stable. Will monitor
--- NOTE | 2024-01-23 08:28 | PD.NEPHPROG ---
Documentation for date of: 01/25/24 Subjective Subjective Interval history: Mr. Medrano is a 33-year-old male with a past medical history of paraplegia since the age of 13 (intubation scar noted on his neck), ESRD on Dialysis (Friday- under Dr. Jeff), recurrent nephrolithiasis, history of pyelonephritis, and hx catheter associated complicated urinary tract infections, history of abdominal wall necrotizing fasciitis post skin graft, s/p ileostomy. Admitted on (01/18/2024) catheter associated complicated urinary tract infection. 01/21/2024 took over care from Dr. Alonso. Patient currently seen in medical floor. Resting comfortably. He gets dialysis twice weekly. 01/23/2024 patient currently seen and attended dialysis. Resting comfortably. He is going to be discharged today. Patient paraplegic. Review of Systems Review of Systems Narrative Review of Systems: CONSTITUTIONAL: Patient denies any fever, chills. Complaining of fatigue HEENT: Denies any visual disturbances or hearing problems. CARDIOVASCULAR: Patient denies any chest pain, shortness of breath, swelling in the lower extremities. PULMONARY: Patient denies any shortness of breath, cough. GASTROINTESTINAL: Patient denies any abdominal pain, constipation, nausea, vomiting, diarrhea. GENITOURINARY: Recurrent UTIs SKIN: Denies any rash. MUSCULOSKELETAL: In bed NEUROLOGICAL: Paraplegic Exam Vital Signs Temp Pulse Resp BP Pulse Ox O2 Del Method O2 Flow Rate 36.7 C 96 18 121/86 H 96 Nasal Cannula 4 01/23/24 16:00 01/23/24 16:00 01/23/24 16:00 01/23/24 16:00 01/23/24 16:01/23/24 16:01/23/24 16:00 FiO2 35 01/23/24 11:15 Narrative Exam GENERAL APPEARANCE: Patient seems to be comfortable, adequately hydrated and nourished. On dialysis HEENT: EOMI, PERRLA NECK: Neck supple, no JVD or bruit CARDIOVASCULAR: Heart regular, no murmurs LUNGS/CHEST: Chest clear to auscultation. No rales, rhonchi, wheezing ABDOMEN: Soft, nontender, nondistended. No masses. Normal bowel sounds. Has Brody catheter EXTREMITIES: No edema, clubbing or cyanosis. SKIN: Skin exam normal without any rashes MUSCULOSKELETAL: In bed NEUROLOGICAL : Paraplegic Objective Labs 01/23/24 04:43 01/23/24 04:43 Assessment & Plan Assessment and plan (1) Urinary tract infection: Status: Acute (2) Colonization with multidrug-resistant bacteria: Status: Acute (3) Renal calculus, bilateral: Status: Acute (4) MRSA (methicillin resistant staph aureus) culture positive: Status: Acute (5) Hypotension: Status: Acute (6) Paraplegia: Status: Acute (7) Pneumonia: Status: Acute (8) Sinus tachycardia: Status: Acute (9) Back pain: Status: Acute (10) ESRD (end stage renal disease): Status: Acute (11) Hyponatremia: Status: Acute Additional Assessment & Plan Additional Plan: #ESRD on Dialysis (Friday and Friday) Etiology: difficult to determine if patient has secondary underlying conditions such diabetes. Patient has numerous bilateral renal calculi and indwelling brody catheter use puts patients at increased for calculi stones, specifically Struvite stones. Patient stated he progressed towards ESRD due to repeated calculi and scar formation, more likely given CT Abdomen/Pelvis shower parenchymal scars. -Ct Abdomen/Pelvis: Significant bilateral renal parenchymal scar formation, numerous bilateral renal calculi -Sodium Bicarbonate 650 PO BID -Sevelamer 800 PO TID WM -Renal dose medication -avoid nephrotoxicity Patient currently seen on dialysis. Tolerating dialysis without any problems. Hemodialysis for 3 hours, 2K, ultrafiltration 0 L, Epogen 6000, no heparin ordered. Plan of care discussed with the dialysis nurse. Please see dialysis flowsheet for further details. #Macrocytic Anemia Epogen with dialysis #hypo-somolar Mild Hyponatremia # brody Catheter associated complicated, urinary tract infection #hx of nephrolithiasis & pyelonephritis #Paraplegia #hypotension #hypothyroidism DC today postdialysis
--- NOTE | 2024-01-23 08:38 | PC.SS ---
Addendum entered by Nemo Kessler 01/23/24 09:19: SS has spoken to Akil from and confirmed they have received fax. Original Note: JORGE spoke to Cara at [facility] she did not receive fax from yesterday. SS has faxed again physician note for pt requiring IV antibiotic during dialysis.
--- NOTE | 2024-01-23 09:16 | PC.SS ---
Addendum entered by Nemo Kessler 01/23/24 10:09: SS confirmed with mom [facility] has contacted her to deliver home O2 between 12-5pm. SS provided mom with SS phone#. Mom is aware pt will d/c today after home O2 is delivered. Original Note: SS spoke to Emma from [facility] who is aware pt will be d/c today. Emma explained they will contact SS to deliver home O2 to hospital or to patient's home.
--- NOTE | 2024-01-23 09:16 | PD.IDPROG ---
Subjective Subjective Interval history: no sx noted. on rx with hd. Exam Vital Signs Temp Pulse Resp BP Pulse Ox O2 Del Method O2 Flow Rate 97.0 F 99 19 125/63 99 Nasal Cannula 4 01/23/24 07:54 01/23/24 09:00 01/23/24 07:54 01/23/24 09:00 01/23/24 07:54 01/23/24 07:54 01/23/24 07:54 FiO2 35 01/21/24 15:44 Narrative Exam limited eval Objective - Internal Medicine Labs 01/23/24 04:43 01/23/24 04:43 Labs: Laboratory Results - last 24 hr 01/22/24 01/22/24 01/22/24 08:50 08:50 08:50 WBC 7.8 RBC 3.53 L Hgb 11.6 L Hct 37.3 L MCV 106 H MCH 32.9 MCHC 31.1 RDW Std Deviation 51.3 H Plt Count 129 L Neut % (Auto) 79 Lymph % (Auto) 10 [place] % (Auto) 9 Eos % (Auto) 1 Baso % (Auto) 1 Neut # (Auto) 6.1 Lymph # (Auto) 0.7 L [place] # (Auto) 0.7 Eos # (Auto) 0.1 Baso # (Auto) 0.0 Immature Gran # (Auto) 0.08 H Absolute Nucleated RBC 0.00 Immature Gran % 1 H Nucleated RBC % 0 Sodium 130 L Cancelled Potassium 4.7 Cancelled Chloride 99 Carbon Dioxide Anion Gap BUN Creatinine Estim Creat Clear Calc eGFR BUN/Creatinine Ratio Glucose Calculated Osmolality Calcium Corrected Calcium Magnesium Total Bilirubin AST ALT Alkaline Phosphatase Total Protein Albumin Globulin Albumin/Globulin Ratio Coccidioides IgM Ab 01/22/24 01/22/24 01/22/24 08:50 08:50 08:50 WBC RBC Hgb Hct MCV MCH MCHC RDW Std Deviation Plt Count Neut % (Auto) Lymph % (Auto) [place] % (Auto) Eos % (Auto) Baso % (Auto) Neut # (Auto) Lymph # (Auto) [place] # (Auto) Eos # (Auto) Baso # (Auto) Immature Gran # (Auto) Absolute Nucleated RBC Immature Gran % Nucleated RBC % Sodium Potassium Chloride Cancelled Carbon Dioxide 24.7 Cancelled Anion Gap 6 L Cancelled BUN 39 H Creatinine Estim Creat Clear Calc eGFR BUN/Creatinine Ratio Glucose Calculated Osmolality Calcium Corrected Calcium Magnesium Total Bilirubin AST ALT Alkaline Phosphatase Total Protein Albumin Globulin Albumin/Globulin Ratio Coccidioides IgM Ab 01/22/24 01/22/24 01/22/24 08:50 08:50 08:50 WBC RBC Hgb Hct MCV MCH MCHC RDW Std Deviation Plt Count Neut % (Auto) Lymph % (Auto) [place] % (Auto) Eos % (Auto) Baso % (Auto) Neut # (Auto) Lymph # (Auto) [place] # (Auto) Eos # (Auto) Baso # (Auto) Immature Gran # (Auto) Absolute Nucleated RBC Immature Gran % Nucleated RBC % Sodium Potassium Chloride Carbon Dioxide Anion Gap BUN Cancelled Creatinine 4.4 H* Cancelled Estim Creat Clear Calc 32.3 L Cancelled eGFR 17 L BUN/Creatinine Ratio Glucose Calculated Osmolality Calcium Corrected Calcium Magnesium Total Bilirubin AST ALT Alkaline Phosphatase Total Protein Albumin Globulin Albumin/Globulin Ratio Coccidioides IgM Ab 01/22/24 01/22/24 01/22/24 08:50 08:50 08:50 WBC RBC Hgb Hct MCV MCH MCHC RDW Std Deviation Plt Count Neut % (Auto) Lymph % (Auto) [place] % (Auto) Eos % (Auto) Baso % (Auto) Neut # (Auto) Lymph # (Auto) [place] # (Auto) Eos # (Auto) Baso # (Auto) Immature Gran # (Auto) Absolute Nucleated RBC Immature Gran % Nucleated RBC % Sodium Potassium Chloride Carbon Dioxide Anion Gap BUN Creatinine Estim Creat Clear Calc eGFR Cancelled BUN/Creatinine Ratio 9 L Cancelled Glucose 98 Cancelled Calculated Osmolality 270 L Calcium Corrected Calcium Magnesium Total Bilirubin AST ALT Alkaline Phosphatase Total Protein Albumin Globulin Albumin/Globulin Ratio Coccidioides IgM Ab 01/22/24 01/22/24 01/22/24 08:50 08:50 08:50 WBC RBC Hgb Hct MCV MCH MCHC RDW Std Deviation Plt Count Neut % (Auto) Lymph % (Auto) [place] % (Auto) Eos % (Auto) Baso % (Auto) Neut # (Auto) Lymph # (Auto) [place] # (Auto) Eos # (Auto) Baso # (Auto) Immature Gran # (Auto) Absolute Nucleated RBC Immature Gran % Nucleated RBC % Sodium Potassium Chloride Carbon Dioxide Anion Gap BUN Creatinine Estim Creat Clear Calc eGFR BUN/Creatinine Ratio Glucose Calculated Osmolality Cancelled Calcium 9.7 Cancelled Corrected Calcium 9.7 Cancelled Magnesium 1.8 Total Bilirubin AST ALT Alkaline Phosphatase Total Protein Albumin Globulin Albumin/Globulin Ratio Coccidioides IgM Ab 01/22/24 01/22/24 01/22/24 08:50 08:50 08:50 WBC RBC Hgb Hct MCV MCH MCHC RDW Std Deviation Plt Count Neut % (Auto) Lymph % (Auto) [place] % (Auto) Eos % (Auto) Baso % (Auto) Neut # (Auto) Lymph # (Auto) [place] # (Auto) Eos # (Auto) Baso # (Auto) Immature Gran # (Auto) Absolute Nucleated RBC Immature Gran % Nucleated RBC % Sodium Potassium Chloride Carbon Dioxide Anion Gap BUN Creatinine Estim Creat Clear Calc eGFR BUN/Creatinine Ratio Glucose Calculated Osmolality Calcium Corrected Calcium Magnesium Cancelled Total Bilirubin 0.2 L Cancelled AST 13 Cancelled ALT 11 Alkaline Phosphatase Total Protein Albumin Globulin Albumin/Globulin Ratio Coccidioides IgM Ab 01/22/24 01/22/24 01/22/24 08:50 08:50 08:50 WBC RBC Hgb Hct MCV MCH MCHC RDW Std Deviation Plt Count Neut % (Auto) Lymph % (Auto) [place] % (Auto) Eos % (Auto) Baso % (Auto) Neut # (Auto) Lymph # (Auto) [place] # (Auto) Eos # (Auto) Baso # (Auto) Immature Gran # (Auto) Absolute Nucleated RBC Immature Gran % Nucleated RBC % Sodium Potassium Chloride Carbon Dioxide Anion Gap BUN Creatinine Estim Creat Clear Calc eGFR BUN/Creatinine Ratio Glucose Calculated Osmolality Calcium Corrected Calcium Magnesium Total Bilirubin AST ALT Cancelled Alkaline Phosphatase 155 H Cancelled Total Protein 7.7 Cancelled Albumin 4.4 D Globulin Albumin/Globulin Ratio Coccidioides IgM Ab 01/22/24 01/22/24 01/22/24 08:50 08:50 08:50 WBC RBC Hgb Hct MCV MCH MCHC RDW Std Deviation Plt Count Neut % (Auto) Lymph % (Auto) [place] % (Auto) Eos % (Auto) Baso % (Auto) Neut # (Auto) Lymph # (Auto) [place] # (Auto) Eos # (Auto) Baso # (Auto) Immature Gran # (Auto) Absolute Nucleated RBC Immature Gran % Nucleated RBC % Sodium Potassium Chloride Carbon Dioxide Anion Gap BUN Creatinine Estim Creat Clear Calc eGFR BUN/Creatinine Ratio Glucose Calculated Osmolality Calcium Corrected Calcium Magnesium Total Bilirubin AST ALT Alkaline Phosphatase Total Protein Albumin Cancelled Globulin 3.3 Cancelled Albumin/Globulin Ratio 1.3 Cancelled Coccidioides IgM Ab Negative 01/23/24 04:43 WBC 7.4 RBC 3.38 L Hgb 11.1 L Hct 35.8 L MCV 106 H MCH 32.8 MCHC 31.0 RDW Std Deviation 51.0 H Plt Count 125 L Neut % (Auto) 78 Lymph % (Auto) 9 L [place] % (Auto) 10 Eos % (Auto) 2 Baso % (Auto) 0 Neut # (Auto) 5.8 Lymph # (Auto) 0.7 L [place] # (Auto) 0.8 Eos # (Auto) 0.1 Baso # (Auto) 0.0 Immature Gran # (Auto) 0.07 H Absolute Nucleated RBC 0.00 Immature Gran % 1 H Nucleated RBC % 0 Sodium 134 L Potassium 5.1 Chloride 104 Carbon Dioxide 25.6 Anion Gap 4 L BUN 47 H Creatinine 4.8 H* Estim Creat Clear Calc 29.6 L eGFR 15 L BUN/Creatinine Ratio 10 L Glucose 98 Calculated Osmolality 280 Calcium 9.5 Corrected Calcium Magnesium Total Bilirubin AST ALT Alkaline Phosphatase Total Protein Albumin Globulin Albumin/Globulin Ratio Coccidioides IgM Ab Assessment & Plan A&P Narrative hx of uti with abn urinalysis in ED. paraplegia with NB/NB and chronic brody ckd on hd pen allergy noted changed the merrem and doxy to gent with hd to respect the pen allergy. suspect the prior cx from ED not done optimally, no need to target that germ please get an outpt sleep study on him andafter some sould searching, put him back on po doxy for pneumonia but suspect the resp changes are more primitivo related given situation in room will see again prn. be sure to do sleep study as outpt. dispositon per others. Time Spent With Patient Time: Total time spent is greater than 50% in coordination of care (as documented) at patient's floor/unit and/or counseling patient:
--- NOTE | 2024-01-23 10:11 | ESDS_ITS ---
Planned Discharge Date 01/23/24 DS: Providers Provider Date of admission: 01/18/24 15:30 Primary care physician: Bryce Bunn MD Admitting Provider: Joey Bolden DO Attending Provider on Admission: Franco Muhammad MD Consults: 01/18/24 15:39 Consult to Infectious Diseases Routine Comment: multi drug resistant UTI Consulting Provider: Zoran Pelayo Consult to Nephrology Routine Comment: ESRD , HD fri, friday. Consulting Provider: Fransisco Alonso 01/19/24 02:25 Referral Infection Control Routine Comment: Reason for Infection Control Referral: Current Dialysis Patient Attending Provider on DC: TYRONE Martínez RE Discharging Provider: TYRONE Martínez DS: Diagnosis Problem List Completed Was Problem List Reviewed/Reconciled?: Yes Hospital Course Hospital Course Hospital course: 33 year old male PMHx paraplegia since age 13, ESRD on HD since 2019, recurrent nephrolithiasis w/ UTI and pyelonephritis, tunneled catheter with MRSA infection, abdominal necrotizing fasciitis s/p extensive skin graft, s/p ileostomy presented to ED with hematuria x 1 day. Notably he visited the ED november 2023 for UTI and was discharged on bactrim, subsequent cultures showed that he had multidrug resistant infection with klebsiella, pseudomonas, e coli. Arrived to ED afebrile, non toxic appearing with normal WBC, tachycardic at 101, loss control representative nically high creatinine of 3.5 BUN 27. UA with 3+ blood and suggestive of UTI , CT A/P showed no hydronephrosis, but with bilateral renal calculi, and cystitis and UTI. Due to history of MDR bacteria, and hematuria patient admitted for IV antibiotic treatment. Patient gets HD fri , friday, followed by nephro. Additionally had CXR and CT showing bibasilar pneumonia with small effusions, and mild heart failure pattern, was diuresed 01/19 and 01/20 IV lasix. Urine culture returned positive for E. coli, resistant to fluoroquinolones. ID recommended using gentamicin only on HD days, meropenem was stopped. An Echocardiogram was done prior to discharge showing an EF of 65% , trace mitral/tricuspid regurge, otherwise normal. Patient is to continue previous outpatient medications and get a sleep study for suspicion of MERVIN. gentamicin on dialysis days only- specifically 01/22 120mg in 100mlIV (200ml/hr) gentamicin is to be administered , and on 01/25 HD day 120mg in 100mlIV (200ml/hr) gentamicin is to be administered doxycycline 100mg po BID until 01/27 #UTI #Bilateral Renal Calculi #Hematuria #Pneumonia #Pulmonary edema #ESRD on HD since 2018 #Paraplegia #Hypotension #chronic thoracic pain #tobacco user #Hyponatremia #Intertrigo #hypothyroidism #HTN Time Spent with Patient Time attestation: Total time spent providing and/or coordinating discharge services: 30 minutes Exam Vital Signs Temp Pulse Resp BP Pulse Ox O2 Del Method O2 Flow Rate 97.0 F 97 18 113/58 L 99 Nasal Cannula 1 01/23/24 07:54 01/23/24 10:00 01/23/24 09:41 01/23/24 10:00 01/23/24 09:41 01/23/24 07:54 01/23/24 09:41 FiO2 35 01/21/24 15:44 Narrative Exam Physical Exam General: Awake and in no acute distress. Very sedated and non-toxic appearing. HEENT: Normocephalic, atraumatic, mucous membranes moist. Heart: Regular rate and rhythm, no murmurs, rubs or gallops. Lungs: no wheezing , course crackles bilaterally in all lung chavez Abdomen: Soft, distended due to body habitus, nontender, positive bowel sounds. ?No guarding or rebound tenderness. ileostomy back with dark drainage Neurologic: Alert and oriented x3, atrophied legs, paraplegic unable to move legs Extremities: No edema, pedal pulse 2+ , Left dorsal aspect of hand with red bruise Skin: No rash or ecchymoses. Discharge Plan Plan Patient Disposition: HOME (Self Care) Patient condition on transfer: Stable Prescriptions/Referrals Prescriptions/Med Rec: New amlodipine 5 mg Tablet 5 mg PO QDAY 30 Days Qty: 30 1RF Mucinex DM 30-600 mg Tablet Extended Release 12 Hr 1 tab PO BID PRN (Reason: Cough) Qty: 10 0RF doxycycline hyclate 100 mg Tablet 100 mg PO BID 3 Days Qty: 6 0RF gentamicin in NaCl (iso-osm) 120 mg/100 mL Piggyback 120 mg IV MoFr 2 Days Qty: 100 0RF Continued sevelamer carbonate 800 mg Tablet 2,400 mg PO TIDWMEAL magnesium oxide 400 mg magnesium Capsule 400 mg PO BID levothyroxine 25 mcg Tablet 25 mcg PO QDAY cholestyramine (with sugar) 4 gram Powder In Packet 1 ea PO BID Lokelma 10 gram Powder In Packet 10 g PO QDAY Rx Instructions: takes at 0300 am gabapentin 600 mg Tablet 600 mg PO TID omeprazole 40 mg capsule,delayed release(DR/EC) 40 mg PO QDAY Patient Comments: TAKE ONE CAPSULE BY MOUTH EVERY DAY midodrine 10 mg tablet 10 mg PO TID PRN (Reason: Hypotension) cinacalcet 30 mg tablet 30 mg PO QDAY Patient Comments: TAKE ONE TABLET BY MOUTH EVERY DAY hydrocodone-acetaminophen 10-325 mg tablet 1 tab PO Q6H PRN (Reason: Pain (Scale Score 7-10)) sodium bicarbonate 650 mg tablet 650 mg PO BID Patient Comments: TAKE ONE TABLET BY MOUTH TWICE DAILY mupirocin 2 % ointment 1 applic topical BID Qty: 22 0RF Rx Instructions: Apply to dialysis catheter insertion site twice daily cyclobenzaprine 5 mg tablet 5 mg PO Q8HR PRN (Reason: Muscle Spasm) Patient Comments: TAKE ONE TABLET BY MOUTH EVERY 8 HOURS NEEDED FOR muscle SPASMS Referrals: Bryce Bunn MD [Primary Care Provider] - Patient/Caregiver Discharge Instructions Discharge Activity: as per physical therapy Other Discharge Activity Instructions:: Patient will receive IV Gentamicin specifically 01/22 tomorrow 120mg in 100mlIV (200ml/hr) and on 01/25 HD day 120mg in 100mlIV (200ml/hr) gentamicin is to be administered along with Doxycycline 100mg po BID until 01/28/24. Continue outpatient medications as prescribed in addition to new Mucinex as needed, and Amlodipine 5mg daily. Follow up with PCP and Urology in outpatient settings within 1-2 weeks after discharge Education Materials: What Is Pneumonia?, Understanding Urinary Tract ..., Understanding Kidney Stones Print Language: Mohawk Stand Alone Forms: Mellissa Award Info., Patient Portal Info Letter Discharge Order Discharge Orders: Discharge (Routine); Ordered 01/23/24 Ordered By: Charles Cardona Quality Discharge Quality Measures VTE prophylaxis Attestestation Attestation I have examined the patient, reviewed labs and imaging findings, discussed the case with the resident(s), and reviewed entered orders. I agree with the plan of care as outlined in this note. Dr. Muhammad
[2024-01-23] MEDS: PANTOPRAZOLE 40 MG TABLET PO (12:26)
[2024-01-23] MEDS: NICOTINE PATCH 21 MG/24 HR PATCH.TD24 TOP (12:28)
[2024-01-23] MEDS: DOXYCYCLINE 100 MG TABLET PO (13:00)
[2024-01-23] MEDS: CHOLESTYRAMINE/SUCROSE 1 PKT EA PO (13:00)
[2024-01-23] MEDS: GENTAMICIN/NS 120 MG IVPB 120 MG/100 ML BAG 200 MG IV (13:01)
[2024-01-23 13:53] LABS: Cocci Serology, IgG Negative (Negative)
[2024-01-23] MEDS: SODIUM BICARBONATE 650 MG TABLET PO (14:14)
[2024-01-23] MEDS: NYSTATIN CR 30 GM TUBE TOP (14:16)
--- NOTE | 2024-01-23 14:58 | PC.SS ---
SS setup gurney transportation with Chloé from [facility] and requested [facility]. Ref# [id number]. SS has sent patient's facesheet and ambulance form to [facility]. SS spoke to Michelle from [facility] who placed pt on will call list until [facility] has contacted them. Pt is aware transportation has been setup for 5pm and transportation at times can be delayed. SS informed pt while he was on the phone speaking to his mom. Mom is aware of transportation.
[2024-01-26 07:14] LABS: Heparin, Anti-Xa* <0.20 IU/mL
== END 2024-01-23 17:35 | disposition home or self-care (01) | DRG 698 ==
LOC: SERX 15:10 → SERHOLD 16:11 → S3NX 19:25
PROVIDERS: Registered Nurse General Practice; Student in an Organized Health Care Education/Training Program; Admitting Provider Student in an Organized Health Care Education/Training Program; Emergency Provider Internal Medicine Critical Care Medicine; PCP Family Medicine; Visit Provider Student in an Organized Health Care Education/Training Program
DX: T83.511A Infection and inflammatory reaction due to indwelling urethral catheter, initial encounter (principal); J18.9 Pneumonia, unspecified organism; N18.6 End stage renal disease; G82.20 Paraplegia, unspecified; I12.0 Hypertensive chronic kidney disease with stage 5 chronic kidney disease or end stage renal disease; E87.1 Hypo-osmolality and hyponatremia; Z16.23 Resistance to quinolones and fluoroquinolones; Z16.24 Resistance to multiple antibiotics; N39.0 Urinary tract infection, site not specified; N20.0 Calculus of kidney; I95.9 Hypotension, unspecified; G89.29 Other chronic pain; E03.9 Hypothyroidism, unspecified; B96.20 Unspecified Escherichia coli [E. coli] as the cause of diseases classified elsewhere; L30.4 Erythema intertrigo; R09.02 Hypoxemia; D53.9 Nutritional anemia, unspecified; F17.210 Nicotine dependence, cigarettes, uncomplicated; Z99.2 Dependence on renal dialysis; Z87.440 Personal history of urinary (tract) infections; Z56.0 Unemployment, unspecified; Z86.14 Personal history of Methicillin resistant Staphylococcus aureus infection; Z87.442 Personal history of urinary calculi; Z88.8 Allergy status to other drugs, medicaments and biological substances; Z88.0 Allergy status to penicillin; M54.6 Pain in thoracic spine; Z79.890 Hormone replacement therapy; Z79.899 Other long term (current) drug therapy; Y73.2 Prosthetic and other implants, materials and accessory gastroenterology and urology devices associated with adverse incidents; Y84.6 Urinary catheterization as the cause of abnormal reaction of the patient, or of later complication, without mention of misadventure at the time of the procedure
CPT/HCPCS: 36415; 71045; 71250; 74176; 80048; 80053; 80069; 80074; 81001; 82607; 82728; 82746; 83540; 83550; 83735; 83880; 85025; 85520; 86331; 86635; 87077; 87081; 87086; 87186; 87811; 93306; 94640; 94660; 94667; 96365; 99285; A9270; J1580; J1940; J2185; J7050

== ENCOUNTER 2024-04-10 13:38 | Inpatient (IN) | payer MEDICARE, MEDICAID, SELFPAY ==
[2024-04-10] VITALS (9 sets, daily range): BP systolic 110–139; BP diastolic 76–92; PULSE 108–137; RESP 19–24; TEMP 36.6–37; O2SAT 89–99; BMI 31.3
--- NOTE | 2024-04-10 13:48 | PD.EDSOB ---
ED SOB =RME/HPI General Chief Complaint: Shortness of Breath/Dyspnea Stated Complaint: SOB Time Seen by Provider: 04/10/24 13:44 Arrival date/time: 04/10/24 13:38 RME / HPI RME / HPI Narrative: Patient is a 33 year old paraplegic male presenting to the ED BIBA from home for Shortness of breath x2 days. Patient denies chest pain at this time. States he was discharged form the hospital 2 weeks ago for pneumonia, during the 2 week stay had a tracheostomy in place. Denies fevers, chills, nausea,vomiting. Patient has catheter and colostomy in place. Per EMS patient 89% on 3 liters of O2, given one albuterol treatment and increased to 95% on 6 liters O2. History includes ESRD, hypertension. Related Data Home Medications ?Medication ?Instructions ?Recorded ?Confirmed gabapentin 600 mg tablet 600 mg PO TID 03/29/19 04/11/24 cholestyramine (with sugar) 4 gram 1 ea PO BID 08/24/20 01/19/24 powder for susp in a packet levothyroxine 25 mcg tablet 25 mcg PO QDAY 08/24/20 04/11/24 magnesium oxide 400 mg PO BID 08/24/20 01/19/24 sevelamer carbonate 800 mg tablet 2,400 mg PO TIDWMEAL 08/24/20 04/11/24 sodium zirconium cyclosilicate 10 10 g PO QDAY 08/24/20 04/11/24 gram oral powder packet (Lokelma) cinacalcet 30 mg tablet 30 mg PO QDAY 07/10/22 12/26/22 midodrine 10 mg tablet 10 mg PO TID PRN Hypotension 07/10/22 01/19/24 omeprazole 40 mg capsule,delayed 40 mg PO QDAY 07/10/22 01/19/24 release hydrocodone 10 mg-acetaminophen 1 tab PO Q6H PRN Pain (Scale Score 12/26/22 04/11/24 325 mg tablet 7-10) sodium bicarbonate 650 mg tablet 650 mg PO BID 12/26/22 01/19/24 cyclobenzaprine 5 mg tablet 5 mg PO Q8HR PRN Muscle Spasm 01/19/24 04/11/24 Previous Rx's ?Medication ?Instructions ?Recorded mupirocin 2 % topical ointment 1 applic topical BID #22 grams 12/28/22 amlodipine 5 mg tablet 5 mg PO QDAY 30 days #30 tabs 01/23/24 dextromethorphan-guaifenesin 30 1 tab PO BID PRN Cough #10 tabs 01/23/24 mg-600 mg tablet extended [id number] hr (Mucinex DM) Allergies Allergy/AdvReac Type Severity Reaction Status Date / Time piperacillin [From Zosyn] Allergy Severe Anaphylaxis Verified 01/18/24 12:28 tazobactam [From Zosyn] Allergy Severe Anaphylaxis Verified 01/18/24 12:28 LIZY Inhibitors Allergy Verified 01/18/24 12:28 Penicillins Allergy Anaphylaxis Verified 01/18/24 12:28 Review of Systems Review of Systems Narrative Review of Systems: Gen: No fever, no chills, no weight loss EYES: No discharge, no visual changes, no pain HEENT: No ear pain, no congestion, no sore throat PULM: + shortness of breath, no cough, no congestion CV: No chest pain, no dyspnea on exertion, no palpitations GI: No nausea, no vomiting, no diarrhea, no pain, no constipation : No frequency, no urgency, no dysuria Musc/skel: No joint pain, no back pain Skin: No rash Psyc: No hallucinations, no depression Heme/Lymph: No easy bleeding or bruising tendencies Neuro: No weakness, no headache Past Medical History Past Medical History NEUROLOGIC: Positive Paralysis and Spinal Cord Injury; Negative Seizures CARDIAC: Positive Cardiac Disorders, Cardiac Arrhythmia, Hypertension and Hypotension; Negative Congestive Heart Failure RESPIRATORY: Positive Sleep Apnea, Orthopnea and Intubation; Negative Chronic Obstructive Pulmonary Disease (COPD) or Asthma GASTROINTESTINAL: Positive Gastrointestinal Disorders, Gastrointestinal Bleed, Hemorrhoids and Gastroesophageal Reflux Disease GENITOURINARY: Positive Genitourinary Disorders, Renal Disease, Kidney Stones, Neurogenic Bladder and Dialysis MUSCULOSKELETAL: Positive Musculoskeletal Disorders ENDOCRINE: Positive Hypothyroidism; Negative Diabetes Mellitus Type 1 or Diabetes Mellitus Type 2 HEMATOLOGIC: Negative Sickle Cell Disease PSYCHO/SOCIAL: Positive Depression and Anxiety OTHER HISTORY: Positive Hospitalization, Falls and Blood Transfusions; Negative Blood Transfusion Reaction or Anesthesia Reactions Family History FAMILY HISTORY: Positive Family Cancer Surgical History SURGICAL: Positive Tracheostomy Social History SMOKING STATUS: Current every day smoker SECOND HAND EXPOSURE: No (11 cig/day since 16 yrs old) SUBSTANCE USE: marijuana (smokes daily) OCCUPATION: Unemployed, disabled ED Exam Narrative Physical exam: GEN. APPEARANCE: The patient is alert awake oriented X-3 in mild distress, lying down comfortably, does not look ill/toxic. Patient has good eye contact. Patient is cooperative. Patient is paraplegic, flaccid waste down, catheter in place, Richardson bag with hazy urine VITALS: All vitals were reviewed and the pulse ox is 89% on 3 liters of O2, interpreted as hypoxia HEENT: Normocephalic, atraumatic. Pupils are equal and reactive. Oral mucosa is moist. Patent Nares NECK: Supple, nontender, no thyromegaly, no meningismus, no JVD, no step offs CHEST: Symmetrical, atraumatic, and with equal expansion , Nontender on palpation no deformity and no crepitus. CARDIOVASCULAR: Heart regular rhythm no murmur or gallop rub or extra beats. LUNGS: Bilateral coarse crackles, speaks 2-3 word senctences. No laboring tachypnea or wheezing. No intercostal subcostal retraction. No rales and no rhonchi. ABDOMEN: Soft, flat, nontender to palpation, no guarding or rebound tenderness. There are no abnormal masses palpated. Active and normal bowel sounds. EXTREMITIES: Nontender. No edema. No cyanosis. Patient is able to move upper extremities well, with full ROM and good CSM. SKIN: Warm and dry, no jaundice or rashes noted. MUSCULOSKELETAL: No lubar or midline bony tenderness. There is no CVA tenderness. No paraspinal muscle spasm or tenderness. NEURO: Patient is SHANKS x 4, Cranial nerves II through XII grossly intact. There is no focal neurologic deficits noted. GCS is 15, PNS and [employer] appear grossly intact. PSYCHIATRIC: Patient is in normal mood and affect, cooperative, no SI or HI or hallucinations. Course Quality Measures none Orders Category Date Time Status Bedside COVID-19 Antigen Test NOW Care 04/10/24 13:56 Active Bedside Influenza A&B Antigen Test NOW Care 04/10/24 16:44 Completed COVID-19 Screening Questionnaire NOW Care 04/10/24 16:[address] Screening NOW Care 04/10/24 13:54 Active Ict Sales Representative STAT Care 04/10/24 13:51 Active Continuous Pulse Oximetry ONCE Care 04/10/24 13:51 Completed Decision to Admit X1 Care 04/10/24 16:47 Completed EKG (ED ONLY) *Do not use* NOW Care 04/10/24 13:51 Completed Insert IV STAT Care 04/10/24 13:[address] angio chest Stat Exams 04/10/24 13:53 Completed EKG (ED Only) Stat Exams 04/10/24 13:51 Draft XR chest 1V portable Stat Exams 04/10/24 13:51 Completed B-Type Natriuretic Peptide Stat Lab 04/10/24 15:05 Completed Blood Culture (Lab) Stat Lab 04/10/24 17:24 Received CBC Stat Lab 04/10/24 15:05 Completed Comprehensive Metabolic Panel Stat Lab 04/10/24 15:05 Completed Magnesium Stat Lab 04/10/24 15:05 Completed Prothrombin Time with INR Stat Lab 04/10/24 15:05 Completed Troponin I Stat Lab 04/10/24 15:05 Completed UA, C/S IF [Urinalysis, C/S if Indicated] Stat Lab 04/10/24 14:52 Completed VBG [Venous Blood Gas] Stat Lab 04/10/24 15:05 Completed Cefepime Inj [Maxipime Inj] 1 gm Med 04/10/24 16:45 Discontinued Sodium Chloride 0.9% (P) [Ns 0.9% (P)] 50 ml IV Q12HR Cefepime Inj [Maxipime Inj] 1 gm Med 04/10/24 17:00 Active Sodium Chloride 0.9% (P) [Ns 0.9% (P)] 50 ml IV Q24H HYDROmorphone INJ [Dilaudid Inj] Med 04/10/24 16:53 Discontinued 1 mg IVP X1 ONE HYDROmorphone INJ [Dilaudid Inj] Med 04/10/24 13:53 Discontinued 4 mg IVP X1 ONE Sodium Chloride 0.9% 1000 ml [Ns] 2,000 ml Med 04/10/24 16:33 Discontinued IV 500 mls/hr Oxygen Delivery NOW RT 04/10/24 13:51 Active Vital Signs Vital signs: Vital Signs Temperature 98.5 F 04/10/24 13:51 Pulse Rate 108 H 04/10/24 13:51 Respiratory Rate 21 H 04/10/24 13:51 Blood Pressure 139/92 H 04/10/24 13:51 Pulse Oximetry (%) 94 L 04/10/24 13:51 Oxygen Delivery Method Nasal Cannula 04/10/24 13:51 Oxygen Flow Rate 5 04/10/24 13:51 Shortness of Breath / Dyspnea Patient data External records reviewed:: [facility] previous records and EMS form Clinical information provided by:: patient and EMS Social determinants that could affect healthcare access:: none Patient has the following chronic illnesses:: paraplegia, ESRD, hypertension How is presenting disease/condition affected by chronic disease/condition?: uneffected by Evaluation data The following diagnostics were reviewed and interpreted by me:: lab results and EKG tracing(s) (Sinus rhythm, Rate 97, normal axis, normal intervals, no acute ST or T wave changes. ) Lab and/or radiology exams considered but not ordered:: none Interpretation Summary: Ordering Physician: Emerson Amin MD Date of Service: 04/10/24 Procedure(s): CT angio chest Accession Number(s): [id number] cc: Bryce Bunn MD; Emerson Amin MD; Sam Villatoro MD~ Examination: CTA chest with intravenous contrast 2-D reconstructions 3-D reconstructions, vascular Date and time of exam: April 10, 2024 1543 hrs. Indications: Onset chest pain shortness of breath today, clinical diagnosis pulmonary emboli CTDI: vol (mGy) 15.5 DLP: (mGycm) 733 Technique: Multiple axial sections of the thorax have been obtained. 3 mm slice thickness, from below the hemidiaphragms to above the apices of the lungs. Mediastinal and lung density settings have been obtained. 2-D sagittal and coronal reconstructions. 3-D angiographic renderings, 3-D volume renderings, 3D post processing, vascular maximum intensity projections obtained. Contrast administered is 100 cc Isovue-370. Low dose protocols were performed. One or more of the following dose reduction techniques were used; automated exposure control, adjustment of the mA and/or KV according to patient size, use of iterative reconstruction technique. Findings: Multiple small tracheobronchial lymph nodes No thoracic aortic aneurysmal dilatation Pulmonary artery segments are not enlarged No pulmonary artery emboli Moderate vascular congestion Significant pneumonia left base with small bilateral pleural effusions No visualized liver or splenic lesion Contracted gallbladder No pancreatic mass Impression: Negative for pulmonary artery emboli Significant pneumonia left base Dictated By: Sam Villatoro MD Signed By: <Electronically signed by Sam Villatoro MD in OV> 04/10/24 1620 Ordering Physician: Emerson Amin MD Date of Service: 04/10/24 Procedure(s): XR chest 1V portable Accession Number(s): [id number] cc: Bryce Bunn MD; Emerson Amin MD; Sam Villatoro MD~ Examination: AP chest single view Technique: AP portable semiupright chest single view Exam date and time: April 10, 2024 1420 hrs. Comparison: 01/22/2024 Indications: Shortness of breath chest pain beginning 3 days ago. Findings: No significant cardiac enlargement Left base density obscuring detail hemidiaphragm Orthopedic support rods upper dorsal spine Impression: Left base pneumonia Dictated By: Sam Villatoro MD Signed By: <Electronically signed by Sam Villatoro MD in OV> 04/10/24 1627 Medications / Prescriptions Medications or Prescriptions considered but not ordered:: none Medication administrations:: Medication Administration History Acetaminophen (Acetaminophen 325 Mg Tablet) 650 mg PO Q6H PRN PRN Reason: PAIN SCALE 1-3 (mild Stop: 05/10/24 17:16 Hydrocodone Bitart/Acetaminophen (Hydrocodone/Apap 10/325 Tab) 1 tab PO Q8H PRN PRN Reason: Pain Scale 4-10 Stop: 04/15/24 17:16 Last Admin: 04/11/24 03:05 Dose: 1 tab Documented By: MARILYN Cyclobenzaprine HCl (Cyclobenzaprine 5 Mg Tablet) 5 mg PO TID PRN PRN Reason: MUSCLE SPASMS Stop: 05/10/24 18:47 Gabapentin (Gabapentin 300 Mg Capsule) 600 mg PO TID FOREIGN Stop: 05/10/24 21:59 Last Admin: 04/10/24 22:30 Dose: 600 mg Documented By: MARILYN Hydromorphone HCl (Hydromorphone Inj 2 Mg/Ml Vial) 0.25 mg IVP Q2H PRN PRN Reason: Breakthrough pain Stop: 04/15/24 17:16 Last Admin: 04/11/24 01:18 Dose: 0.25 mg Documented By: Admin: 04/10/24 22:30 Dose: 0.25 mg Documented By: CG Cefepime HCl 1 gm/ Sodium (Chloride) 50 mls @ 100 mls/hr IV Q24H FOREIGN Stop: 04/17/24 16:59 Last Infusion: 04/10/24 17:40 Dose: Infused Documented By: Admin: 04/10/24 16:58 Dose: 100 mls/hr Documented By: DO Sodium Chloride (Ns) 1,000 mls @ 100 mls/hr IV .Q10H FOREIGN Stop: 04/11/24 08:14 Last Admin: 04/10/24 22:32 Dose: 100 mls/hr Documented By: MARILYN Midodrine (Midodrine 5 Mg Tablet) 10 mg PO TID PRN PRN Reason: HYPOTENSION SBP <100 Stop: 05/10/24 21:59 Ondansetron HCl (Ondansetron Inj 2 Mg/Ml Inj 2 Ml) 4 mg IV Q6H PRN; Protocol PRN Reason: NAUSEA OR VOMITING Stop: 05/10/24 17:16 Discontinued Medications Hydrocodone Bitart/Acetaminophen (Hydrocodone/Apap 10/325 Tab) 1 tab PO Q4H PRN PRN Reason: PAIN SCALE 4-6 (Moderate Stop: 04/15/24 17:16 Hydromorphone HCl (Hydromorphone Inj 2 Mg/Ml Vial) 4 mg IVP X1 ONE Stop: 04/10/24 13:54 Last Admin: 04/10/24 15:21 Dose: 4 mg Documented By: DO Hydromorphone HCl (Hydromorphone Inj 2 Mg/Ml Vial) 1 mg IVP X1 ONE Stop: 04/10/24 16:54 Last Admin: 04/10/24 17:45 Dose: 1 mg Documented By: DO Hydromorphone HCl (Hydromorphone Inj 2 Mg/Ml Vial) 0.25 mg IVP Q2H PRN PRN Reason: PAIN SCALE 7-10 (Severe Stop: 04/15/24 17:16 Sodium Chloride (Ns) 2,000 mls @ 500 mls/hr IV .Q4H ONE Stop: 04/10/24 20:32 Last Infusion: 04/10/24 20:58 Dose: Infused Documented By: Admin: 04/10/24 16:55 Dose: 500 mls/hr Documented By: DO Cefepime HCl 1 gm/ Sodium (Chloride) 50 mls @ 100 mls/hr IV Q12HR FOREIGN Stop: 04/17/24 16:44 Last Admin: 04/10/24 17:14 Dose: Not Given Documented By: DO Non-Admin Reason: Duplicate Medication on eMAR Sodium Chloride (Ns) 1,000 mls @ 999 mls/hr IV .Q1H1M ONE Stop: 04/10/24 23:06 Sodium Polystyrene Sulfonate (Sod Polystyrene Sulfon Susp 15 Gm/60 Ml Btl) 15 gm PO X1 ONE Stop: 04/10/24 18:28 Last Admin: 04/10/24 21:24 Dose: Not Given Documented By: KG Non-Admin Reason: Patient Refused see above Consultations Consultation(s) initiated? (list below): Yes Consultation #1 (Physician, Specialty, Details): Discussed with hospitalist Dr. Muhammad and admitting team regarding the patients current status and results, agrees to admission Time: 16:46 Diagnosis Shortness of Breath Differential Diagnosis: other ( PE, healthcare associated pneumonia, COVID, influenza) Most likely diagnosis given after review of the tests above:: pneumonia, UTI Admission Indicated Admission indicated?: indicated Admission Request Was there a request for admission?: Yes Admission Attestation Admission request attestation: Discussed case with [] from Hospitalist service regarding admission. Discussed patients ED course, exam findings, labs, and radiology results. The Hospitalist [agrees,declines] to accept the patient for admission. Disposition Plan Disposition Plan: Admit Critical Care Time Critical Care Time Critical Care Time: Yes Total Critical Care Time (min.): 35 Attestation: The high probability of sudden, clinically significant deterioration in the patient?s condition required the highest level of my preparedness to intervene urgently. The services I provided to this patient were to treat and/or prevent clinically significant deterioration. Services included the following: chart data review, reviewing nursing notes and/or old charts, documentation time, microsoft infrastructure consultant collaboration regarding findings and treatment options, medication orders and management, direct patient care, vital sign assessments and ordering, interpreting and reviewing diagnostic studies and lab tests. Aggregate critical care time includes only time during which I was engaged in work directly related to the patient?s care, as described above, whether at bedside or elsewhere in the Emergency Department. It did not include time spent performing other reported procedures or the services of residents, students, nurses or physician assistants. Discharge Plan Plan Patient Disposition: Admit Acute Care w/in Hospital Problem List Clinical Impression: Pneumonia, Urinary tract infection, CKD (chronic kidney disease)
--- NOTE | 2024-04-10 13:51 | XR_ITS ---
Examination: AP chest single view Technique: AP portable semiupright chest single view Exam date and time: April 10, 2024 1420 hrs. Comparison: 01/22/2024 Indications: Shortness of breath chest pain beginning 3 days ago. Findings: No significant cardiac enlargement Left base density obscuring detail hemidiaphragm Orthopedic support rods upper dorsal spine Impression: Left base pneumonia
--- NOTE | 2024-04-10 13:51 | EKG_ITS ---
[facility] Test Date: 2024-04-10 Pat Name: KENNEDY LEDEZMA Department: Room: - Gender: Male [employer]: : 1990 Requested By: Emerson Amin Order Number: [id number] Reading MD: Emerson Amin Measurements Intervals [place] Rate: 97 P: 68 SC: 183 QRS: 9 QRSD: 93 T: 60 QT: 297 QTc: 379 Interpretive Statements SINUS RHYTHM Compared to ECG 11/24/2023 13:00:53 No significant changes /store/S0/[id number]/ecg/[id number].pdf
--- NOTE | 2024-04-10 13:53 | XR_ITS ---
Examination: CTA chest with intravenous contrast 2-D reconstructions 3-D reconstructions, vascular Date and time of exam: April 10, 2024 1543 hrs. Indications: Onset chest pain shortness of breath today, clinical diagnosis pulmonary emboli CTDI: vol (mGy) 15.5 DLP: (mGycm) 733 Technique: Multiple axial sections of the thorax have been obtained. 3 mm slice thickness, from below the hemidiaphragms to above the apices of the lungs. Mediastinal and lung density settings have been obtained. 2-D sagittal and coronal reconstructions. 3-D angiographic renderings, 3-D volume renderings, 3D post processing, vascular maximum intensity projections obtained. Contrast administered is 100 cc Isovue-370. Low dose protocols were performed. One or more of the following dose reduction techniques were used; automated exposure control, adjustment of the mA and/or KV according to patient size, use of iterative reconstruction technique. Findings: Multiple small tracheobronchial lymph nodes No thoracic aortic aneurysmal dilatation Pulmonary artery segments are not enlarged No pulmonary artery emboli Moderate vascular congestion Significant pneumonia left base with small bilateral pleural effusions No visualized liver or splenic lesion Contracted gallbladder No pancreatic mass Impression: Negative for pulmonary artery emboli Significant pneumonia left base
[2024-04-10] MEDS: HYDROmorphone INJ 2 MG/ML VIAL 4 MG IVP (15:21)
[2024-04-10 15:26] LABS: Collection Type, Urine Catheter
[2024-04-10 15:29] LABS: Base Excess, Venous -3 (-3-3); O2 Saturation, Venous 54 % (96-97); PCO2, Venous 58 mmHg (36-56); PO2, Venous 30 mmHg (15-58); pH, Venous 7.24 (7.33-7.66)
--- NOTE | 2024-04-10 15:29 | PC.NURSE ---
PT TO CT
[2024-04-10 15:32] LABS: Basophils # (Auto) 0.1 Thou/mm3 (0.0-0.2); Basophils % (Auto) 1 % (0-2.5); Eosinophils # (Auto) 0.2 Thou/mm3 (0.0-0.5); Eosinophils % (Auto) 2 % (0-10); Hemoglobin 10.7 g/dL (13.5-16.0); Immature Granulocytes % (Auto) 0 % (0-0); Immature Granulocytes Auto 0.03 Thou/mm3 (0.00-0.00); Lymphocytes # (Auto) 0.8 Thou/mm3 (1.0-4.8); Lymphocytes % (Auto) 8 % (10-50); Mean Corpuscular HGB Conc 31.5 g/dl (31.0-37.0); Mean Corpuscular Volume 102 fL (80-100); Monocytes # (Auto) 0.9 Thou/mm3 (0.0-0.8); Monocytes % (Auto) 9 % (0-12); Neutrophils # (Auto) 7.9 Thou/mm3 (1.8-7.7); Neutrophils % (Auto) 81 % (37-80); Nucleated Red Blood Cell % 0 /100 WBC (0); Platelet Count 137 Thou/mm3 (140-440); RDW Standard Deviation 54.6 fL (35.1-43.9); Red Blood Count 3.34 Miln/mm3 (4.50-5.90); White Blood Count 9.9 Thou/mm3 (3.8-10.6)
[2024-04-10 15:45] LABS: Bacteria,Urine 2+; Bilirubin,Urine Negative (Negative); Blood,Urine 3+ (Negative); Culture Indicated,Urine Contaminated; Glucose, Urine Negative (Negative); Ketones,Urine Negative (Negative); Leukocyte Esterase,Urine Positive (Negative); Nitrite,Urine Negative (Negative); Protein,Urine 3+ (Neg - Trace); RBC,Urine 151 /hpf (0-3); Squamous Epithelial Cell,Urine 12 /hpf (0-5); Transitional Epi Cells,Urine 3 /hpf (0-5); Urobilinogen,Urine Negative mg/dL (0.0-1.0); WBC,Urine 1570 /hpf (0-5)
[2024-04-10 15:51] LABS: INR 1.1 (0.9-1.3); Prothrombin Time 11.9 Seconds (9.0-12.2)
[2024-04-10 15:58] LABS: Clarity,Urine Turbid (Clear/Hazy); Color,Urine Colorless (Lt Yel-Yel)
[2024-04-10 16:24] LABS: Alanine Aminotransferase 10 U/L (10-49); Albumin, Serum 4.3 gm/dL (3.5-5.0); Albumin/Globulin Ratio 1.3 (1.2-2.2); Alkaline Phosphatase 146 U/L (46-116); Anion Gap 8 (7-16); Aspartate Amino Transferase 10 U/L (0-34); BUN/Creatinine Ratio 5 Ratio (12-20); Bilirubin,Total 0.3 mg/dL (0.3-1.2); Blood Urea Nitrogen 24 mg/dL (9-23); Calcium 9.6 mg/dL (8.3-10.6); Calcium (Corrected) 9.6 mg/dL (8.5-10.1); Carbon Dioxide 23.5 mMol/L (20.0-31.0); Chloride 99 mMol/L (98-107); Creatinine (Component) 4.7 mg/dL (0.6-1.3); Estimated Creatinine Clearance 23.6 mL/min (>60); Globulin 3.4 gm/dL (2.3-3.5); Glucose 96 mg/dL (74-106); Magnesium 1.8 mg/dL (1.6-2.6); Osmolality,Calculated 264 (275-295); Potassium 5.3 mMol/L (3.4-5.1); Sodium 130 mMol/L (136-145); Total Protein 7.7 gm/dL (5.7-8.2); Troponin I < 0.002 ng/mL (0.0-0.045); eGFR 16 See Note
[2024-04-10 16:27] LABS: B-Type Natriuretic Peptide 38 pg/mL (0-100)
[2024-04-10] MEDS: SODIUM CHLORIDE 0.9% 1000 ML 2,000 ML 500 ML IV (16:55)
[2024-04-10] MEDS: CEFEPIME INJ 1 GM in SODIUM CHLORIDE 0.9% (P) 50 ML IV (16:58)
--- NOTE | 2024-04-10 17:05 | PC.NURSE ---
resident at bedside
--- NOTE | 2024-04-10 17:22 | ESHP_ITS ---
<Statement entered by Naomi Mascorro MD - 04/11/24 07:27> Patient is a 33 y.o male with PMHx significant for paraplegia since age 13, ESRD on HD since 2019 (MF with Dr. Jeff), recurrent nephrolithiasis, recurrent UTIs, chronic catheter useage, s/p tracheostomy x 2 weeks ago, s/p ileostomy and HTN who presented to [facility] ED with SOB x 5 days with associated productive cough and weakness . Patient generally cannot feel any sensation beyond his nipple, however, did feel some discomfort around his penis, which is consistent during his previous UTIs. Patient will be admitted for sepsis 2/2 left lung base PNA and possible UTI. Patient recently changed his catheter last feel himself. D/t his associated weakness, patient also missed his dialysis session yesterday, and will consult Dr. Haines for dialysis. K+ was noted to be elevated, and will Kayexelate x1. Will start on IV Cefepime for now and deescalate depending on cultures. I discussed with and supervised the nurse intern physician who took care of this patient. I personally saw and examined the patient and discussed the assessment and plan with the entire medicine team, including my attending , I agree with most of the assessment and plan as documented below Naomi Mascorro M.D. PGY-2 Documentation for date of: 04/10/24 HPI History of Present Illness Chief complaint: Pneumonia and UTI History of present illness: Mr. Zoran Matson is a 33y/o male with a past medical history of paraplegia since age 13, ESRD on hemodialysis since 2019 (dialysis schedule Friday and Friday, missed his dialysis session day prior to admission 04/09/2024) seeing Dr. Jeff, recurrent nephrolithiasis, recurrent UTIs, chronic catheter usage, s/p tracheostomy, s/p ileostomy, and hypertension who presented on 04/10/2024 for progressively worsening dyspnea x5 days. Patient states that approximately 5 days ago, he began to experience shortness of breath and a pressure in his chest that made it more difficult to breath. He also complains of a productive cough with white-green sputum that has been worsening with time. Along with this, patient states that due to his paraplegia he can not feel below the nipple line, but has been experiencing an ambiguous discomfort in his penis that he associates with his previous UTIs. Patient had a recent admission to [facility] several weeks ago which he states was for pneumonia, and he had to undergo a tracheostomy at that time. He states that he was discharged with antibiotics, and although he does not remember their name, he took the full course as prescribed to him. At home, he uses 3-4L of O2 at baseline. In the ED, patient was found to be afebrile, mildly hypertensive at 139/92, slightly tachycardic at 108, tachypneic at 21, and initially spO2 89%. After albuterol administered in the ED, patient tony to 94% O2 on 5L nasal cannula, which further improved over time. WBC 9.9, Hgb 10.7, Na 130, K 5.3, BUN 24, Cr 5.7, glucose 96, Ca 9.6, Mg 1.8, AST/ALT within normal limits, troponins <0.002. Urinalysis taken positive for leukocyte esterase and bacteria, culture pending. Blood cultures taken and pending. EKG taken demonstrated sinus rhythm. CXR positive for left lung base pneumonia. CTA negative for pulmonary embolism, positive for significant pneumonia of the left lung base. Given patient's previous urine culture showing sensitivity to IV Cefepime, patient was started on IV Cefepime on this visit as empiric abx treatment while waiting for current sensitivities. Patient takes 10mg [place] TID at home for his chronic back pain, so was started on his home dose as pain management. Special Effects Makeup Artist Dr. Haines was consulted for possible dialysis, and patient was admitted to med surg. Review of Systems Constitutional Comments: General: Denies fever, endorses chills HEENT: Denies changes in vision and hearing Resp: Endorses dyspnea, productive cough, wheezing CV: Denies chest pain or palpitations GI: Denies abdominal pain, nausea, vomiting, and diarrhea : Denies dysuria but endorses lack of sensation below nipple level, endorses an ambiguous discomfort around his penis MSK: Denies myalgia, joint pain, rash, and pruritis Neuro: Endorses paraplegia and loss of sensation below nipple level Psych: Denies recent changes in miind, anxiety, depression Exam Vital Signs Temp Pulse Resp BP Pulse Ox O2 Del Method O2 Flow Rate 98.5 F 126 H 23 H 110/76 98 Nasal Cannula 4 04/10/24 16:20 04/10/24 16:20 04/10/24 16:20 04/10/24 16:20 04/10/24 16:20 04/10/24 16:20 04/10/24 16:20 Narrative Exam Gen: Alert, oriented x3, responsive to questions, tired-appearing, in no acute distress HEENT: NCAT, PERRLA, EOMI, MMM, anicteric conjunctivae. CVS: normal S1 and S2. RRR. No M/R/G. Resp: Left lung base crackles present, bilateral expiratory wheezing auscultated, mildly tachypneic, no accessory muscle usage Abd: Ostomy site present, abdomen soft, non-tender, non-distended. BS+ in all 4 quadrants. MSK: Paraplegic and unable to move lower extremities Neuro: CN II-XII grossly intact. Strength 5/5 in BUE, no motorsensory function below nipple line Psych: appropriate mood and affect. Results: Labs 04/11/24 05:18 04/11/24 05:18 Labs: Short CBC 04/10/24 Range/Units 15:05 WBC 9.9 (3.8-10.6) Thou/mm3 Hgb 10.7 L (13.5-16.0) g/dL Hct 34.0 L (41.0-53.0) % Plt Count 137 L (140-440) Thou/mm3 BMP 04/10/24 15:05 Sodium 130 L Potassium 5.3 H Chloride 99 Carbon Dioxide 23.5 BUN 24 H Creatinine 4.7 H* Glucose 96 Calcium 9.6 Cardiac Enzymes 04/10/24 Range/Units 15:05 Troponin I < 0.002 (0.0-0.045) ng/mL Liver Function 04/10/24 Range/Units 15:05 Total Bilirubin 0.3 (0.3-1.2) mg/dL AST 10 (0-34) U/L ALT 10 (10-49) U/L Alkaline Phosphatase 146 H (46-116) U/L Albumin 4.3 (3.5-5.0) gm/dL Urine 04/10/24 Range/Units 14:52 Urine Color Colorless A (Lt Yel-Yel) Urine Clarity Turbid A (Clear/Hazy) Urine pH 7.0 (5.0-7.0) Ur Specific Allen 1.010 (1.001-1.035) Urine Protein 3+ A (Neg - Trace) Urine Glucose (UA) Negative (Negative) ABG Interpretation ABG results: 04/10/24 15:05 VBG pH 7.24 L VBG pCO2 58 H VBG pO2 30 VBG Base Excess -3 Quality Measures Quality Measures none Medications Home Medications and Allergies Home Medications ?Medication ?Instructions ?Recorded ?Confirmed ?Type gabapentin 600 mg tablet 600 mg PO TID 03/29/19 04/11/24 History cholestyramine (with sugar) 4 gram 1 ea PO BID 08/24/20 01/19/24 History powder for susp in a packet levothyroxine 25 mcg tablet 25 mcg PO QDAY 08/24/20 04/11/24 History magnesium oxide 400 mg PO BID 08/24/20 01/19/24 History sevelamer carbonate 800 mg tablet 2,400 mg PO TIDWMEAL 08/24/20 04/11/24 History sodium zirconium cyclosilicate 10 10 g PO QDAY 08/24/20 04/11/24 History gram oral powder packet (Lokelma) cinacalcet 30 mg tablet 30 mg PO QDAY 07/10/22 12/26/22 History midodrine 10 mg tablet 10 mg PO TID PRN Hypotension 07/10/22 01/19/24 History omeprazole 40 mg capsule,delayed 40 mg PO QDAY 07/10/22 01/19/24 History release hydrocodone 10 mg-acetaminophen 1 tab PO Q6H PRN Pain (Scale Score 12/26/22 04/11/24 History 325 mg tablet 7-10) sodium bicarbonate 650 mg tablet 650 mg PO BID 12/26/22 01/19/24 History cyclobenzaprine 5 mg tablet 5 mg PO Q8HR PRN Muscle Spasm 01/19/24 04/11/24 History Allergies Allergy/AdvReac Type Severity Reaction Status Date / Time piperacillin [From Zosyn] Allergy Severe Anaphylaxis Verified 01/18/24 12:28 tazobactam [From Zosyn] Allergy Severe Anaphylaxis Verified 01/18/24 12:28 LIZY Inhibitors Allergy Verified 01/18/24 12:28 Penicillins Allergy Anaphylaxis Verified 01/18/24 12:28 Visit Medications Acetaminophen (Acetaminophen 325 Mg Tablet) 650 mg PO Q6H PRN PRN Reason: PAIN SCALE 1-3 (mild Stop: 05/10/24 17:16 Hydrocodone Bitart/Acetaminophen (Hydrocodone/Apap 10/325 Tab) 1 tab PO Q4H PRN PRN Reason: PAIN SCALE 4-6 (Moderate Stop: 04/15/24 17:16 Hydromorphone HCl (Hydromorphone Inj 2 Mg/Ml Vial) 0.25 mg IVP Q2H PRN PRN Reason: PAIN Stop: 04/15/24 17:16 Sodium Chloride (Ns) 2,000 mls @ 500 mls/hr IV .Q4H ONE Stop: 04/10/24 20:32 Last Admin: 04/10/24 16:55 Dose: 500 mls/hr Cefepime HCl 1 gm/ Sodium (Chloride) 50 mls @ 100 mls/hr IV Q24H FOREIGN Stop: 04/17/24 16:59 Last Admin: 04/10/24 16:58 Dose: 100 mls/hr Ondansetron HCl (Ondansetron Inj 2 Mg/Ml Inj 2 Ml) 4 mg IV Q6H PRN; Protocol PRN Reason: NAUSEA OR VOMITING Stop: 05/10/24 17:16 Discontinued Medications Hydromorphone HCl (Hydromorphone Inj 2 Mg/Ml Vial) 4 mg IVP X1 ONE Stop: 04/10/24 13:54 Last Admin: 04/10/24 15:21 Dose: 4 mg Hydromorphone HCl (Hydromorphone Inj 2 Mg/Ml Vial) 1 mg IVP X1 ONE Stop: 04/10/24 16:54 Cefepime HCl 1 gm/ Sodium (Chloride) 50 mls @ 100 mls/hr IV Q12HR FOREIGN Stop: 04/17/24 16:44 Last Admin: 04/10/24 17:14 Dose: Not Given Assessment & Plan Plan Mr. Zoran Matson is a 33y/o male with a past medical history of paraplegia since age 13, ESRD on hemodialysis since 2019 (dialysis schedule Friday and Friday, missed his dialysis session day prior to admission 04/09/2024) seeing Dr. Jeff, recurrent nephrolithiasis, recurrent UTIs, chronic catheter usage, s/p tracheostomy, s/p ileostomy, and hypertension who presented on 04/10/2024 for progressively worsening dyspnea x5 days. Patient states that approximately 5 days ago, he began to experience shortness of breath and a pressure in his chest that made it more difficult to breath. He also complains of a productive cough with white-green sputum that has been worsening with time. Along with this, patient states that due to his paraplegia he can not feel below the nipple line, but has been experiencing an ambiguous discomfort in his penis that he associates with his previous UTIs. #Left Lung Base Pneumonia #Hypoxia As seen on both CXR and CTA on admission. Ruled out pulmonary embolism per CTA as source of patient's difficulty breathing and tachypneic status. Home O2 usage 4L at baseline - Supplemental O2 as needed - Wean O2 until patient's baseline as tolerated (baseline 4L O2 nasal cannula) - IV Cefepime started (Course: 04/10-04/17) #ESRD on Hemodialysis (M/F dialysis) #Electrolyte Imbalance On arrival, Na 130, K 5.3, BUN 24, Cr 4.7. Patient had missed last day of dialysis due to feeling weak from pneumonia and UTI - Kayexelate 15mg x1 given for hyperkalemia - Mild hyponatremia at 130 noted, will monitor AM for changes - No EKG changes noted - Special Effects Makeup Artist Dr. Haines consulted, appreciate recommendations - Midodrine 10mg PO TID prn hypotension #Urinary Tract Infection #Chronic Catheter - IV Cefepime started as previous urine culture from previous admission demonstrated sensitivity to this abx - Urine culture pending, f/u on results - Monitor brody catheter and urine drainage daily #Essential Hypertension Diagnosis present prior to arrival, initial blood pressure well-controlled at 110/76 - Consider starting amlodipine in AM #Chronic Back Pain - Started home dose of [place] 10mg PO TID - Started home dose of gabapentin 600mg PO TID and cyclobenzaprine 5mg PO q8h prn pain Health maintenance: Disposition: Med surg Diet: Renal diet GI prophylaxis: None indicated DVT prophylaxis: SCDs Code: Full code Case disclosed with Attending Dr. Muhammad and my senior Dr. Mascorro PGY2. George Lee PGY1 Attending Provider Attestation/Addendum I have examined the patient, reviewed labs and imaging findings, discussed the case with the resident(s), and reviewed entered orders. I agree with the plan of care as outlined in this note, with these additional summaries/recommendations: Patient is a 33-year-old male with a medical history of paraplegia, tracheostomy, ESRD on HD MF, recurrent UTIs, primary hypertension, hypothyroidism, chronic pain, recurrent hyperkalemia who presented to [facility] emergency department on 04/10/2024 with chief complaint of shortness of breath. Patient diagnosed with acute on chronic hypoxic respiratory failure secondary to pneumonia and thus hospitalist team was consulted for continuation of care. # Acute on chronic hypoxic respiratory failure # Pneumonia of left lung CXR and CTA chest showed significant left base pneumonia Continue IV cefepime (04/10-) as patient recently hospitalized at [facility] and will cover for HAP F/u blood cultures #ESRD #Hyperkalemia On hemodialysis Friday and Friday with nephrology Dr. Jeff In-house nephrology consulted Potassium 5.3 on admission Renally dose medications and avoid nephrotoxic agents Plan: Patient missed last HD session on Friday. We will consult in-house nephrology to initiate HD. No EKG changes for hyperkalemia at this time. We will continue to monitor and give hyper-K bundle if needed. #?Complicated urinary tract infection Urinalysis indicative of UTI Brody catheter exchange ordered Urine and blood cultures ordered Plan: Continue IV cefepime and follow-up culture results # Sinus tachycardia Likely related to underlying infection Status post low-dose fluids Plan: Monitor for improvement while treating underlying infection. If no improvement we will consider starting Rx/consulting cardiology # Chronic hypotension Blood pressure currently stable Plan: Continue midodrine as needed for SBP less than 100 # Paraplegia # Chronic pain Continue home gabapentin, cyclobenzaprine, and as needed [place] # Hypothyroidism Continue home levothyroxine Dr. Muhammad
[2024-04-10] MEDS: HYDROmorphone INJ 2 MG/ML VIAL 1 MG IVP (17:45)
--- NOTE | 2024-04-10 22:05 | EKG_ITS ---
[facility] Test Date: 2024-04-10 Pat Name: KENNEDY LEDEZMA [facility] Gender: Male Feather Mixer: NAREN : 1990 Requested By: Alcon Lopez Order Number: [id number] Reading MD: Alcon Lopez Measurements Intervals [place] Rate: 133 P: 70 ID: [id number] QRS: -47 QRSD: 93 T: 78 QT: 270 QTc: 402 Interpretive Statements SINUS TACHYCARDIA MARKED LEFT AXIS DEVIATION LOW QRS VOLTAGE IN EXTREMITY LEADS PATTERN CONSISTENT WITH PULMONARY DISEASE Compared to ECG 04/10/2024 14:37:47 Left-axis deviation now present Low QRS voltage now present Sinus rhythm no longer present /store/S0/[id number].pdf
--- NOTE | 2024-04-10 22:06 | EVENTNT_ITS ---
Documentation for date of: 04/10/24 Event Note Event Note: Rapid response called at approximately 10:00 PM for heart rate 130. Other vitals showed BP 138/83, RR 20, O2 92% on 6 L NC, afebrile. On exam, in no acute distress, mucous membranes appeared dry, and coarse lung sounds auscult ated but given significant pneumonia unable to differentiate. EKG showed sinus tachycardia and decision was made to start 1 L NS at 100 mL/h. Day team ordered kayexelate, but patient refused.
[2024-04-10] MEDS: HYDROmorphone INJ 2 MG/ML VIAL 0.25 MG IVP (22:30)
[2024-04-10] MEDS: GABAPENTIN 300 MG CAPSULE 600 MG PO (22:30)
[2024-04-10] MEDS: SODIUM CHLORIDE 0.9% 1000 ML 1,000 ML 100 ML IV (22:32)
[2024-04-11] VITALS (27 sets, daily range): BP systolic 92–141; BP diastolic 33–94; PULSE 102–136; RESP 14–25; TEMP 36.1–36.8; O2SAT 95–99
[2024-04-11] MEDS: HYDROmorphone INJ 2 MG/ML VIAL 0.25 MG IVP ×3 (01:18→08:54)
--- NOTE | 2024-04-11 01:32 | PC.NURSE ---
MD Kahn and MD Garrett Lopez made aware that pt is asking to increase the dose of his IV pain meds, both MD declined.
[2024-04-11] MEDS: HYDROcodone/APAP 10/325 TAB PO ×2 (03:05→16:11)
[2024-04-11] MEDS: GABAPENTIN 300 MG CAPSULE 600 MG PO ×3 (05:31→21:10)
[2024-04-11 06:15] LABS: Basophils % (Auto) 0 % (0-2.5); Eosinophils % (Auto) 0 % (0-10); Hematocrit 31.9 % (41.0-53.0); Hemoglobin 10.2 g/dL (13.5-16.0); Immature Granulocytes % (Auto) 0 % (0-0); Immature Granulocytes Auto 0.05 Thou/mm3 (0.00-0.00); Lymphocytes # (Auto) 0.6 Thou/mm3 (1.0-4.8); Lymphocytes % (Auto) 5 % (10-50); Mean Corpuscular Hemoglobin 32.9 pg (25.0-35.0); Mean Corpuscular Volume 103 fL (80-100); Monocytes # (Auto) 1.3 Thou/mm3 (0.0-0.8); Monocytes % (Auto) 11 % (0-12); Neutrophils # (Auto) 9.8 Thou/mm3 (1.8-7.7); Neutrophils % (Auto) 83 % (37-80); Nucleated Red Blood Cell % 0 /100 WBC (0); Platelet Count 124 Thou/mm3 (140-440); RDW Standard Deviation 54.6 fL (35.1-43.9); White Blood Count 11.9 Thou/mm3 (3.8-10.6)
[2024-04-11 06:33] LABS: INR 1.1 (0.9-1.3); Prothrombin Time 12.1 Seconds (9.0-12.2)
[2024-04-11 06:50] LABS: Anion Gap 9 (7-16); BUN/Creatinine Ratio 6 Ratio (12-20); Blood Urea Nitrogen 25 mg/dL (9-23); Calcium 9.4 mg/dL (8.3-10.6); Carbon Dioxide 20.5 mMol/L (20.0-31.0); Chloride 101 mMol/L (98-107); Creatinine (Component) 4.5 mg/dL (0.6-1.3); Free T4 (Free Thyroxine) 1.14 ng/dL (0.89-1.76); Glucose 89 mg/dL (74-106); Magnesium 1.7 mg/dL (1.6-2.6); Osmolality,Calculated 264 (275-295); Phosphorous 4.7 mg/dL (2.4-5.1); Sodium 130 mMol/L (136-145); eGFR 17 See Note
--- NOTE | 2024-04-11 07:15 | EKG_ITS ---
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 : 1990 Requested By: George Lee Order Number: [id number] Reading MD: George Lee Measurements Intervals [place] Rate: 128 P: 68 ME: 175 QRS: -52 QRSD: 93 T: 60 QT: 275 QTc: 402 Interpretive Statements SINUS TACHYCARDIA PATTERN CONSISTENT WITH PULMONARY DISEASE INCOMPLETE RIGHT BUNDLE BRANCH BLOCK [90+ ms QRS DURATION, TERMINAL R IN V1/V2, 40+ ms S IN I/aVL/V4/V5/V6] LEFT ANTERIOR FASCICULAR BLOCK [QRS AXIS <= -45, QR IN I, RS IN II] Compared to ECG 04/10/2024 22:14:10 Incomplete right bundle-branch block now present Left anterior fascicular block now present Left-axis deviation no longer present /store/S0/[id number]/[id number].pdf
[2024-04-11] MEDS: ALBUTEROL INH 8 GM 2 PUFF INH (07:34)
--- NOTE | 2024-04-11 09:55 | PC.NURSE ---
PT HR ELEVATED PT DENIES ALL C/O CHEST PAIN, PRESSURE, BHATTI, SOB, OR DISCOMFORT, WILL CONT. TO MONITOR
--- NOTE | 2024-04-11 10:20 | PC.NURSE ---
PT HR CONT, TO TREND UP PT DENIES ALL COMPLAINTS AND HAS BEEN NOTED WITH PRODUCTIVE COUGHING EPISODES. WILL CONT. TO MONITOR.
--- NOTE | 2024-04-11 11:18 | PC.NURSE ---
MD HANSON AT BEDSIDE W/ ORDER TO DECREASE UF GOAL TO JUST CLEANING, FLUID ADMINISTERED TO OFF SET FLUID REMOVED DURING TX. WILL CONT. TO MONITOR
--- NOTE | 2024-04-11 11:47 | PC.NURSE ---
BP TRENDING DOWN PT DENIES ALL S/S OF HYPOTENSION WILL ADMIN 200ML BOLUS PER MD ORDERS AND CONT. TO MONITOR
[2024-04-11] MEDS: EPOETIN ALFA-EPBX INJ 10,000 UNIT/ML VIAL (ESRD) 10000 UNIT SC (11:52)
--- NOTE | 2024-04-11 12:40 | ESPR_ITS ---
<Statement entered by Naomi Mascorro MD - 04/11/24 15:10> Patient seen and examined at bedside while receiving dialysis. Will increase patient's pain medications. Continue with IV Abx. Nephrology is consulted and will discuss possibility of increasing his dialysis days to help with his electrolyte imbalance. I discussed with and supervised the internal investigator physician who took care of this patient. I personally saw and examined the patient and discussed the assessment and plan with the entire medicine team, including my attending Dr. Muhammad, I agree with most of the assessment and plan as documented below Naomi Mascorro M.D. PGY-2 Documentation for date of: 04/11/24 Subjective Subjective Interval history: Mr. Zoran Matson is a 33y/o male with a past medical history of paraplegia since age 13, ESRD on hemodialysis since 2019 (dialysis schedule Friday and Friday, missed his dialysis session day prior to admission 04/09/2024) seeing Dr. Jeff, recurrent nephrolithiasis, recurrent UTIs, chronic catheter usage, s/p tracheostomy, s/p ileostomy, and hypertension who presented on 04/10/2024 for progressively worsening dyspnea x5 days. Patient states that approximately 5 days ago, he began to experience shortness of breath and a pressure in his chest that made it more difficult to breath. He also complains of a productive cough with white-green sputum that has been worsening with time. Along with this, patient states that due to his paraplegia he can not feel below the nipple line, but has been experiencing an ambiguous discomfort in his penis that he associates with his previous UTIs. Patient had a recent admission to [facility] several weeks ago which he states was for pneumonia, and he had to undergo a tracheostomy at that time. He states that he was discharged with antibiotics, and although he does not remember their name, he took the full course as prescribed to him. At home, he uses 3-4L of O2 at baseline. In the ED, patient was found to be afebrile, mildly hypertensive at 139/92, slightly tachycardic at 108, tachypneic at 21, and initially spO2 89%. After albuterol administered in the ED, patient tony to 94% O2 on 5L nasal cannula, which further improved over time. WBC 9.9, Hgb 10.7, Na 130, K 5.3, BUN 24, Cr 5.7, glucose 96, Ca 9.6, Mg 1.8, AST/ALT within normal limits, troponins <0.002. Urinalysis taken positive for leukocyte esterase and bacteria, culture pending. Blood cultures taken and pending. EKG taken demonstrated sinus rhythm. CXR positive for left lung base pneumonia. CTA negative for pulmonary embolism, positive for significant pneumonia of the left lung base. Given patient's previous urine culture showing sensitivity to IV Cefepime, patient was started on IV Cefepime on this visit as empiric abx treatment while waiting for current sensitivities. Patient takes 10mg Wendover TID at home for his chronic back pain, so was started on his home dose as pain management. [employer] Dr. Haines was consulted for possible dialysis, and patient was admitted to med surg. 04/11: Overnight, patient had a rapid response called for tachycardia into the 130s. His other vitals were within normal limits and and he was in no acute distress at that time. Appeared dry, so he was given 1L normal saline. Tachycardia likely response to patient's pneumonia vs. hyperkalemia, although findings on EKG were only positive for sinus tachycardia. This morning, patient's tachycardia continuining into the 120s. WBC count elevated from 9.9 -> 11.9. Sodium 130, potassium tony 5.3 -> 6.0 with BUN/Cr relatively stable. Dialysis performed this morning, neprhology following, appreciate reccomendations. Exam Vital Signs Temp Pulse Resp BP Pulse Ox O2 Del Method O2 Flow Rate 97.7 F 118 H 18 101/54 L 97 Nasal Cannula 5 04/11/24 08:58 04/11/24 12:30 04/11/24 08:58 04/11/24 12:30 04/11/24 08:58 04/11/24 08:00 04/11/24 08:58 Narrative Exam Gen: Alert, oriented x3, responsive to questions, tired-appearing, in no acute distress HEENT: NCAT, PERRLA, EOMI, MMM, anicteric conjunctivae. CVS: normal S1 and S2. RRR. No M/R/G. Resp: Left lung base crackles present, bilateral expiratory wheezing auscultated, mildly tachypneic, no accessory muscle usage, tracheostomy site closed and scarred over Abd: Ostomy site present, abdomen soft, non-tender, non-distended. BS+ in all 4 quadrants. MSK: Paraplegic and unable to move lower extremities Neuro: CN II-XII grossly intact. Strength 5/5 in BUE, no motorsensory function below nipple line Psych: appropriate mood and affect. Objective Labs 04/12/24 05:04 04/12/24 05:04 Labs: Laboratory Results - last 24 hr 04/10/24 04/10/24 04/11/24 14:52 15:05 05:18 WBC 9.9 11.9 H RBC 3.34 L 3.10 L Hgb 10.7 L 10.2 L Hct 34.0 L 31.9 L MCV 102 H 103 H MCH 32.0 32.9 MCHC 31.5 32.0 RDW Std Deviation 54.6 H 54.6 H Plt Count 137 L 124 L Neut % (Auto) 81 H 83 H Lymph % (Auto) 8 L 5 L Cotton % (Auto) 9 11 Eos % (Auto) 2 0 Baso % (Auto) 1 0 Neut # (Auto) 7.9 H 9.8 H Lymph # (Auto) 0.8 L 0.6 L Cotton # (Auto) 0.9 H 1.3 H Eos # (Auto) 0.2 0.0 Baso # (Auto) 0.1 0.0 Immature Gran # (Auto) 0.03 H 0.05 H Absolute Nucleated RBC 0.00 0.00 Immature Gran % 0 0 Nucleated RBC % 0 0 PT 11.9 12.1 INR 1.1 1.1 VBG pH 7.24 L VBG pCO2 58 H VBG pO2 30 VBG O2 Sat (Lalo) 54 L VBG Base Excess -3 Sodium 130 L 130 L Potassium 5.3 H 6.0 H D Chloride 99 101 Carbon Dioxide 23.5 20.5 Anion Gap 8 9 BUN 24 H 25 H Creatinine 4.7 H* 4.5 H* Estim Creat Clear Calc 23.6 L 27.0 L eGFR 16 L 17 L BUN/Creatinine Ratio 5 L 6 L Glucose 96 89 Calculated Osmolality 264 L 264 L Calcium 9.6 9.4 Corrected Calcium 9.6 Phosphorus 4.7 Magnesium 1.8 1.7 Total Bilirubin 0.3 AST 10 ALT 10 Alkaline Phosphatase 146 H Troponin I < 0.002 B-Natriuretic Peptide 38 Total Protein 7.7 Albumin 4.3 Globulin 3.4 Albumin/Globulin Ratio 1.3 TSH 1.30 Free T4 1.14 Ur Collection Type Catheter Urine Color Colorless A Urine Clarity Turbid A Urine pH 7.0 Ur Specific [place] 1.010 Urine Protein 3+ A Urine Glucose (UA) Negative Urine Ketones Negative Urine Blood 3+ A Urine Nitrite Negative Urine Bilirubin Negative Urine Urobilinogen (Auto) Negative Ur Leukocyte Esterase Positive Urine RBC 151 H Urine WBC 1570 H Ur Squamous Epith Cells 12 H Ur Transition Epith Cell 3 Urine Bacteria 2+ A Ur Culture Indicated? Contaminated ABG Interpretation ABG results: 04/10/24 15:05 VBG pH 7.24 L VBG pCO2 58 H VBG pO2 30 VBG Base Excess -3 Quality Measures Quality Measures none Assessment & Plan Assessment Current Active Medications: Generic Name Dose Route Start Last Admin Trade Name Freq PRN Reason Stop Dose Admin Acetaminophen 650 mg 04/10/24 17:17 Acetaminophen 325 Mg Tablet PO 05/10/24 17:16 Q6H PRN PAIN SCALE 1-3 (mild Hydrocodone Bitart/Acetaminophen 1 tab 04/11/24 12:06 Hydrocodone/Apap 10/325 Tab PO 04/15/24 17:16 Q8H PRN Pain Scale 4-10 Cyclobenzaprine HCl 5 mg 04/10/24 18:48 Cyclobenzaprine 5 Mg Tablet PO 05/10/24 18:47 TID PRN MUSCLE SPASMS Gabapentin 600 mg 04/10/24 22:00 04/11/24 05:31 Gabapentin 300 Mg Capsule PO 05/10/24 21:59 600 mg TID FOREIGN Administration Hydromorphone HCl 0.5 mg 04/11/24 12:01 Hydromorphone Inj 2 Mg/Ml Vial IVP 04/15/24 17:16 Q2H PRN Breakthrough pain Cefepime HCl 1 gm/ Sodium 50 mls @ 100 mls/hr 04/10/24 17:00 04/10/24 17:40 Chloride IV 04/17/24 16:59 Infused Q24H FOREIGN Infusion Albumin Human 25 gm in 100 mls @ 100 mls/min 04/11/24 08:52 Albuminar-25 Ivpb IV PRN PRN DIALYSIS Levothyroxine Sodium 25 mcg 04/12/24 06:00 Levothyroxine Sodium 25 Mcg Tablet PO 05/12/24 05:59 ACBR FOREIGN Midodrine 10 mg 04/10/24 18:48 Midodrine 5 Mg Tablet PO 05/10/24 21:59 TID PRN HYPOTENSION SBP <100 Ondansetron HCl 4 mg 04/10/24 17:17 Ondansetron Inj 2 Mg/Ml Inj 2 Ml IV 05/10/24 17:16 Q6H PRN NAUSEA OR VOMITING Protocol Plan Mr. Zoran Matson is a 33y/o male with a past medical history of paraplegia since age 13, ESRD on hemodialysis since 2019 (dialysis schedule Friday and Friday, missed his dialysis session day prior to admission 04/09/2024) seeing Dr. Jeff, recurrent nephrolithiasis, recurrent UTIs, chronic catheter usage, s/p tracheostomy, s/p ileostomy, and hypertension who presented on 04/10/2024 for progressively worsening dyspnea x5 days. Patient states that approximately 5 days ago, he began to experience shortness of breath and a pressure in his chest that made it more difficult to breath. He also complains of a productive cough with white-green sputum that has been worsening with time. Along with this, patient states that due to his paraplegia he can not feel below the nipple line, but has been experiencing an ambiguous discomfort in his penis that he associates with his previous UTIs. #Sepsis Secondary to Left-Sided Community-Acquired Pneumonia #Acute on Chronic Hypoxic Respiratory Failure As seen on both CXR and CTA on admission. Ruled out pulmonary embolism per CTA as source of patient's difficulty breathing and tachypneic status. Home O2 usage 4L at baseline - Supplemental O2 as needed - Wean O2 until patient's baseline as tolerated (baseline 4L O2 nasal cannula) - Continue course of IV Cefepime (Course: 04/10-04/17) - If breathing treatments needed, consider Levoalbuterol in place of Duonebs as smaller tachycardic effect with Levoalbuterol #ESRD on Hemodialysis (M/F dialysis) #Electrolyte Imbalance On arrival, Na 130, K 5.3, BUN 24, Cr 4.7. Patient had missed last day of dialysis due to feeling weak from pneumonia and UTI - Mild hyponatremia at 130 noted, will monitor AM for changes - No EKG changes noted on repeat test this morning - [employer] Dr. Haines consulted, appreciate recommendations - Midodrine 10mg PO TID prn hypotension from dialysis - Last dialyzed in hospital 04/11/2024 - Albuterol given this morning to lower hyperkalemia in interim before hemodialysis #Urinary Tract Infection, complicated #Chronic Catheter - IV Cefepime started as previous urine culture from previous admission demonstrated sensitivity to this abx - Urine culture pending, f/u on results - Monitor brody catheter and urine drainage daily - Infectious Disease Dr. Pelayo consulted due to past cultures being denis- resistant to antibiotics, appreciate recommendations #Essential Hypertension Diagnosis present prior to arrival, initial blood pressure well-controlled at 110/76 - Hold amlodipine - Midodrine 10mg PO TID prn hypotension from dialysis #Chronic Back Pain #Paraplegia - Continue home dose of Wend[place] 10mg PO TID - Continue home dose of gabapentin 600mg PO TID and cyclobenzaprine 5mg PO q8h prn pain - Increased breakthrough pain medication Dilaudid to 0.5mg q2h prn #Hypothyroidism - Continue home levothyroxine 25mg PO QD Health maintenance: Disposition: Med surg Diet: Renal diet GI prophylaxis: None indicated DVT prophylaxis: SCDs Code: Full code Case disclosed with Attending Dr. Muhammad and my senior Dr. Mascorro PGY2. George Lee PGY1 Attending Provider Attestation/Addendum I have examined the patient, reviewed labs and imaging findings, discussed the case with the resident(s), and reviewed entered orders. I agree with the plan of care as outlined in this note, with these additional summaries/recommendations: Patient is a 33-year-old male with a medical history of paraplegia, tracheostomy, ESRD on HD MF, recurrent UTIs, primary hypertension, hypothyroidism, chronic pain, recurrent hyperkalemia who presented to [facility] [place] emergency department on 04/10/2024 with chief complaint of shortness of breath. Patient diagnosed with acute on chronic hypoxic respiratory failure secondary to pneumonia and thus hospitalist team was consulted for continuation of care. # Acute on chronic hypoxic respiratory failure # Pneumonia of left lung CXR and CTA chest showed significant left base pneumonia Continue IV cefepime (04/10-) as patient recently hospitalized at [facility] and will cover for HAP F/u blood cultures #ESRD #Hyperkalemia On hemodialysis Friday and Friday with nephrology Dr. Jeff In-house nephrology consulted Potassium 5.3 on admission Renally dose medications and avoid nephrotoxic agents Plan: Patient missed last HD session on Friday. We will consult in-house nephrology to initiate HD. No EKG changes for hyperkalemia at this time. We will continue to monitor and give hyper-K bundle if needed. #?Complicated urinary tract infection Urinalysis indicative of UTI Brody catheter exchange ordered Urine and blood cultures ordered Plan: Continue IV cefepime and follow-up culture results # Sinus tachycardia Likely related to underlying infection Status post low-dose fluids Plan: Monitor for improvement while treating underlying infection. If no improvement we will consider starting Rx/consulting cardiology # Chronic hypotension Blood pressure currently stable Plan: Continue midodrine as needed for SBP less than 100 # Paraplegia # Chronic pain Continue home gabapentin, cyclobenzaprine, and as needed Wendover # Hypothyroidism Continue home levothyroxine Dr. Muhammad
--- NOTE | 2024-04-11 13:23 | ESCONSULT_ITS ---
HPI Data of Consult Consult date: 04/11/24 Requesting Physician: Franco Muhammad MD Admitting Provider: Franco Muhammad MD Attending Provider: Franco Muhammad MD Primary Care Provider: Bryce Bunn MD Consult Narrative Reason for consult: ESRD requiring dialysis History of present illness: Mr. Zoran Matson is a 33y/o male with a past medical history of paraplegia since age 13, ESRD on hemodialysis since 2019 (dialysis schedule Friday and Friday, missed his dialysis session day prior to admission 04/09/2024) seeing Dr. Jeff, recurrent nephrolithiasis, recurrent UTIs, chronic catheter usage, s/p tracheostomy, s/p ileostomy, and hypertension who presented on 04/10/2024 for progressively worsening dyspnea x5 days. Patient states that approximately 5 days ago, he began to experience shortness of breath and a pressure in his chest that made it more difficult to breath. He also complains of a productive cough with white-green sputum that has been worsening with time. Along with this, patient states that due to his paraplegia he can not feel below the nipple line, but has been experiencing an ambiguous discomfort in his penis that he associates with his previous UTIs. Patient had a recent admission to [facility] several weeks ago which he states was for pneumonia, and he had to undergo a tracheostomy at that time. He states that he was discharged with antibiotics, and although he does not remember their name, he took the full course as prescribed to him. At home, he uses 3-4L of O2 at baseline. In the ED, patient was found to be afebrile, mildly hypertensive at 139/92, slightly tachycardic at 108, tachypneic at 21, and initially spO2 89%. After albuterol administered in the ED, patient tony to 94% O2 on 5L nasal cannula, which further improved over time. WBC 9.9, Hgb 10.7, Na 130, K 5.3, BUN 24, Cr 5.7, glucose 96, Ca 9.6, Mg 1.8, AST/ALT within normal limits, troponins <0.002. Urinalysis taken positive for leukocyte esterase and bacteria, culture pending. Blood cultures taken and pending. EKG taken demonstrated sinus rhythm. CXR positive for left lung base pneumonia. CTA negative for pulmonary embolism, positive for significant pneumonia of the left lung base. Given patient's previous urine culture showing sensitivity to IV Cefepime, patient was started on IV Cefepime on this visit as empiric abx treatment while waiting for current sensitivities. Patient takes 10mg [place] TID at home for his chronic back pain, so was started on his home dose as pain management. Nephrology was consulted for possible dialysis, and patient was admitted to [facility]. Patient seen and examined on dialysis. Patient resting comfortably. No plans for fluid removal, only cleaning during dialysis. Patient has fluid output via Richardson cath 1.8 L. Patient also has ileostomy, unknown fluid output. Unclear cause of ESRD, suspect chronic interstitial nephritis due to recurrent UTIs and nephrolithiasis. Patient normal dialysis schedule Friday and Friday. Missed Fridays dialysis. Sodium 130, potassium 6.0, bicarb 20.5, BUN 25, creatinine 4.5, eGFR 17. cc:: cc: Franco Muhammad MD Review of Systems Review of Systems Systems Reviewed: All systems reviewed, normal except as documented Past Medical History Past Medical History NEUROLOGIC: Positive Paralysis and Spinal Cord Injury; Negative Seizures CARDIAC: Positive Cardiac Disorders, Cardiac Arrhythmia, Hypertension and Hypotension; Negative Congestive Heart Failure RESPIRATORY: Positive Asthma, Sleep Apnea, Orthopnea and Intubation; Negative Chronic Obstructive Pulmonary Disease (COPD) GASTROINTESTINAL: Positive Gastrointestinal Disorders, Gastrointestinal Bleed, Hemorrhoids and Gastroesophageal Reflux Disease GENITOURINARY: Positive Genitourinary Disorders, Renal Disease, Kidney Stones, Neurogenic Bladder and Dialysis MUSCULOSKELETAL: Positive Musculoskeletal Disorders ENDOCRINE: Positive Hypothyroidism; Negative Diabetes Mellitus Type 1 or Diabetes Mellitus Type 2 HEMATOLOGIC: Negative Sickle Cell Disease PSYCHO/SOCIAL: Positive Depression and Anxiety OTHER HISTORY: Positive Hospitalization, Falls and Blood Transfusions; Negative Blood Transfusion Reaction or Anesthesia Reactions Family History FAMILY HISTORY: Positive Family Cancer Surgical History SURGICAL: Positive Tracheostomy Social History SMOKING STATUS: Light (< 1 pack/day) SECOND HAND EXPOSURE: No (11 cig/day since 16 yrs old) SUBSTANCE USE: marijuana (smokes daily) OCCUPATION: Unemployed, disabled Exam Vital Signs Temp Pulse Resp BP Pulse Ox O2 Del Method O2 Flow Rate 97.1 F 120 H 18 114/63 98 Nasal Cannula 5 04/11/24 13:03 04/11/24 13:03 04/11/24 13:03 04/11/24 13:03 04/11/24 13:03 04/11/24 08:00 04/11/24 13:03 Narrative Exam PE: Gen: Well-developed and well-nourished. HEENT: NCAT, PERRLA, EOMI, MMM, anicteric conjunctivae. Tracheostomy wound, bandaged. CVS: normal S1 and S2. RRR. No M/R/G. Resp: Congestion throughout all lung chavez. Abd: soft, non-tender, non-distended. Ileostomy. Scarring from multiple surgeries including open abdominal surgery. PEG tube. MSK: Good ROM in BUE . No rash. Mild bilateral lower extremity edema. Neuro: CN II-XII grossly intact. Strength 5/5 in BUE. Alert and oriented x3. Paraplegic. Results Labs 04/11/24 05:18 04/11/24 12:35 Labs: Short CBC 04/10/24 04/11/24 Range/Units 15:05 05:18 WBC 9.9 11.9 H (3.8-10.6) Thou/mm3 Hgb 10.7 L 10.2 L (13.5-16.0) g/dL Hct 34.0 L 31.9 L (41.0-53.0) % Plt Count 137 L 124 L (140-440) Thou/mm3 BMP 04/10/24 04/11/24 15:05 05:18 Sodium 130 L 130 L Potassium 5.3 H 6.0 H D Chloride 99 101 Carbon Dioxide 23.5 20.5 BUN 24 H 25 H Creatinine 4.7 H* 4.5 H* Glucose 96 89 Calcium 9.6 9.4 Cardiac Enzymes 04/10/24 Range/Units 15:05 Troponin I < 0.002 (0.0-0.045) ng/mL Liver Function 04/10/24 Range/Units 15:05 Total Bilirubin 0.3 (0.3-1.2) mg/dL AST 10 (0-34) U/L ALT 10 (10-49) U/L Alkaline Phosphatase 146 H (46-116) U/L Albumin 4.3 (3.5-5.0) gm/dL Urine 04/10/24 Range/Units 14:52 Urine Color Colorless A (Lt Yel-Yel) Urine Clarity Turbid A (Clear/Hazy) Urine pH 7.0 (5.0-7.0) Ur Specific [place] 1.010 (1.001-1.035) Urine Protein 3+ A (Neg - Trace) Urine Glucose (UA) Negative (Negative) ABG Interpretation ABG results: 04/10/24 15:05 VBG pH 7.24 L VBG pCO2 58 H VBG pO2 30 VBG Base Excess -3 Quality Measures Quality Measures VTE prophylaxis Medications Home Medications and Allergies Home Medications ?Medication ?Instructions ?Recorded ?Confirmed ?Type gabapentin 600 mg tablet 600 mg PO TID 03/29/19 04/11/24 History cholestyramine (with sugar) 4 gram 1 ea PO BID 08/24/20 01/19/24 History powder for susp in a packet levothyroxine 25 mcg tablet 25 mcg PO QDAY 08/24/20 04/11/24 History magnesium oxide 400 mg PO BID 08/24/20 01/19/24 History sevelamer carbonate 800 mg tablet 2,400 mg PO TIDWMEAL 08/24/20 04/11/24 History sodium zirconium cyclosilicate 10 10 g PO QDAY 08/24/20 04/11/24 History gram oral powder packet (Lokelma) cinacalcet 30 mg tablet 30 mg PO QDAY 07/10/22 12/26/22 History midodrine 10 mg tablet 10 mg PO TID PRN Hypotension 07/10/22 01/19/24 History omeprazole 40 mg capsule,delayed 40 mg PO QDAY 07/10/22 01/19/24 History release hydrocodone 10 mg-acetaminophen 1 tab PO Q6H PRN Pain (Scale Score 12/26/22 04/11/24 History 325 mg tablet 7-10) sodium bicarbonate 650 mg tablet 650 mg PO BID 12/26/22 01/19/24 History cyclobenzaprine 5 mg tablet 5 mg PO Q8HR PRN Muscle Spasm 01/19/24 04/11/24 History Allergies Allergy/AdvReac Type Severity Reaction Status Date / Time piperacillin [From Zosyn] Allergy Severe Anaphylaxis Verified 01/18/24 12:28 tazobactam [From Zosyn] Allergy Severe Anaphylaxis Verified 01/18/24 12:28 LIZY Inhibitors Allergy Verified 01/18/24 12:28 Penicillins Allergy Anaphylaxis Verified 01/18/24 12:28 Visit Medications Acetaminophen (Acetaminophen 325 Mg Tablet) 650 mg PO Q6H PRN PRN Reason: PAIN SCALE 1-3 (mild Stop: 05/10/24 17:16 Hydrocodone Bitart/Acetaminophen (Hydrocodone/Apap 10/325 Tab) 1 tab PO Q8H PRN PRN Reason: Pain Scale 4-10 Stop: 04/15/24 17:16 Cyclobenzaprine HCl (Cyclobenzaprine 5 Mg Tablet) 5 mg PO TID PRN PRN Reason: MUSCLE SPASMS Stop: 05/10/24 18:47 Gabapentin (Gabapentin 300 Mg Capsule) 600 mg PO TID FOREIGN Stop: 05/10/24 21:59 Last Admin: 04/11/24 05:31 Dose: 600 mg Hydromorphone HCl (Hydromorphone Inj 2 Mg/Ml Vial) 0.5 mg IVP Q2H PRN PRN Reason: Breakthrough pain Stop: 04/15/24 17:16 Cefepime HCl 1 gm/ Sodium (Chloride) 50 mls @ 100 mls/hr IV Q24H [facility] Stop: 04/17/24 16:59 Last Infusion: 04/10/24 17:40 Dose: Infused Albumin Human (Albuminar-25 Ivpb) 25 gm in 100 mls @ 100 mls/min IV PRN PRN PRN Reason: DIALYSIS Levothyroxine Sodium (Levothyroxine Sodium 25 Mcg Tablet) 25 mcg PO ACBR [facility] Stop: 05/12/24 05:59 Midodrine (Midodrine 5 Mg Tablet) 10 mg PO TID PRN PRN Reason: HYPOTENSION SBP <100 Stop: 05/10/24 21:59 Ondansetron HCl (Ondansetron Inj 2 Mg/Ml Inj 2 Ml) 4 mg IV Q6H PRN; Protocol PRN Reason: NAUSEA OR VOMITING Stop: 05/10/24 17:16 Discontinued Medications Hydrocodone Bitart/Acetaminophen (Hydrocodone/Apap 10/325 Tab) 1 tab PO Q4H PRN PRN Reason: PAIN SCALE 4-6 (Moderate Stop: 04/15/24 17:16 Hydrocodone Bitart/Acetaminophen (Hydrocodone/Apap 10/325 Tab) 1 tab PO Q8H PRN PRN Reason: Pain Scale 4-10 Stop: 04/15/24 17:16 Last Admin: 04/11/24 03:05 Dose: 1 tab Albuterol (Albuterol Inh 8 Gm) 2 puff INH X1 ONE Stop: 04/11/24 07:16 Last Admin: 04/11/24 07:34 Dose: 2 puff Epoetin Sandeep (Epoetin Sandeep-Epbx 3,000 Unit/Ml Vial (Esrd)) 10,000 unit SC X1 ONE Stop: 04/11/24 10:01 Epoetin Sandeep (Epoetin Sandeep-Epbx Inj 10,000 Unit/Ml Vial (Esrd)) 10,000 unit SC X1 ONE Stop: 04/11/24 10:01 Last Admin: 04/11/24 11:52 Dose: 10,000 unit Hydromorphone HCl (Hydromorphone Inj 2 Mg/Ml Vial) 4 mg IVP X1 ONE Stop: 04/10/24 13:54 Last Admin: 04/10/24 15:21 Dose: 4 mg Hydromorphone HCl (Hydromorphone Inj 2 Mg/Ml Vial) 1 mg IVP X1 ONE Stop: 04/10/24 16:54 Last Admin: 04/10/24 17:45 Dose: 1 mg Hydromorphone HCl (Hydromorphone Inj 2 Mg/Ml Vial) 0.25 mg IVP Q2H PRN PRN Reason: PAIN SCALE 7-10 (Severe Stop: 04/15/24 17:16 Hydromorphone HCl (Hydromorphone Inj 2 Mg/Ml Vial) 0.25 mg IVP Q2H PRN PRN Reason: Breakthrough pain Stop: 04/15/24 17:16 Last Admin: 04/11/24 08:54 Dose: 0.25 mg Sodium Chloride (Ns) 2,000 mls @ 500 mls/hr IV .Q4H ONE Stop: 04/10/24 20:32 Last Infusion: 04/10/24 20:58 Dose: Infused Cefepime HCl 1 gm/ Sodium (Chloride) 50 mls @ 100 mls/hr IV Q12HR FOREIGN Stop: 04/17/24 16:44 Last Admin: 04/10/24 17:14 Dose: Not Given Sodium Chloride (Ns) 1,000 mls @ 999 mls/hr IV .Q1H1M ONE Stop: 04/10/24 23:06 Sodium Chloride (Ns) 1,000 mls @ 100 mls/hr IV .Q10H FOREIGN Stop: 04/11/24 08:14 Last Admin: 04/10/24 22:32 Dose: 100 mls/hr Sodium Polystyrene Sulfonate (Sod Polystyrene Sulfon Susp 15 Gm/60 Ml Btl) 15 gm PO X1 ONE Stop: 04/10/24 18:28 Last Admin: 04/10/24 21:24 Dose: Not Given Sodium Polystyrene Sulfonate (Sod Polystyrene Sulfon Susp 15 Gm/60 Ml Btl) 15 gm PO X1 ONE Stop: 04/11/24 07:16 Assessment & Plan Plan 33 y/o male with PMHx significant for paraplegia since age 13, ESRD on hemodialysis since 2019 (dialysis schedule Friday and Friday, missed his dialysis session day prior to admission 04/09/2024) seeing Dr. Jeff, recurrent nephrolithiasis, recurrent UTIs, chronic catheter usage, s/p tracheostomy, s/p ileostomy, and hypertension who presented on 04/10/2024 for progressively worsening dyspnea x5 days, admitted for pneumonia. #ESRD on Hemodialysis (M/F dialysis) #Electrolyte Imbalance On arrival, Na 130, K 5.3, BUN 24, Cr 4.7. Patient had missed last day of dialysis due to feeling weak from pneumonia and UTI. Patient has mild hyponatremia 130, hyperkalemia worsening from 5.3-6.0. Patient produces good urine, receives dialysis for cleaning only. -Dialysis today -Renally dose meds -Avoid nephrotoxic medications -Monitor daily labs #Left-Sided Community-Acquired Pneumonia #Acute on Chronic Hypoxic Respiratory Failure #Urinary Tract Infection, complicated #Chronic Catheter #Essential Hypertension #Chronic Back Pain #Paraplegia #Hypothyroidism Management as per primary team. DVT prophylaxis: SCDs GI prophylaxis: None Diet: Renal Lines: Ileostomy, Richardson cath, peripheral IV, PEG tube Code status: Full code Thank you for allowing me to participate in the care of this patient. Plan of care discussed with attending Dr. Haines. Ronak Morton MD PGY-1 Attending Provider Attestation/Addendum Patient seen and examined with resident physician Dr. Norris. Note reviewed, agree with findings and recommendations Patient admitted with shortness of breath and pneumonia. Patient goes only twice weekly to dialysis. Due to his electrolyte imbalance is currently on dialysis. Patient currently seen on dialysis. Tolerating dialysis without any problems. Hemodialysis for 3 hours, 2K, ultrafiltration 0 L, Epogen 6000, no heparin ordered. Plan of care discussed with the dialysis nurse. Please see dialysis flowsheet for further details. Patient gets only diffuse with clearance with no ultrafiltration. He has a good ileostomy losses and good urine output. No ultrafiltration ordered today. Thank you Franco for allowing me to participate in the care of Mr. Matson
[2024-04-11 13:54] LABS: Anion Gap 10 (7-16); BUN/Creatinine Ratio 25 Ratio (12-20); Blood Urea Nitrogen < 5 mg/dL (9-23); Calcium 9.1 mg/dL (8.3-10.6); Chloride 103 mMol/L (98-107); Creatinine (Component) 0.2 mg/dL (0.6-1.3); Estimated Creatinine Clearance 608.3 mL/min (>60); Glucose 87 mg/dL (74-106); Osmolality,Calculated 270 (275-295); Sodium 137 mMol/L (136-145); eGFR > 60 See Note
[2024-04-11] MEDS: HYDROmorphone INJ 2 MG/ML VIAL 0.5 MG IVP ×4 (14:17→22:45)
[2024-04-11] MEDS: CEFEPIME INJ 1 GM in SODIUM CHLORIDE 0.9% (P) 50 ML IV (18:01)
[2024-04-11] MEDS: CYCLObenzaPRINE 5 MG TABLET PO (18:29)
[2024-04-12] VITALS (24 sets, daily range): BP systolic 94–127; BP diastolic 43–82; PULSE 100–123; RESP 16–21; TEMP 36.2–36.6; O2SAT 95–100; BMI 37.8
[2024-04-12] MEDS: HYDROcodone/APAP 10/325 TAB PO ×3 (00:45→21:12)
[2024-04-12] MEDS: HYDROmorphone INJ 2 MG/ML VIAL 0.5 MG IVP ×6 (01:40→22:54)
[2024-04-12] MEDS: GABAPENTIN 300 MG CAPSULE 600 MG PO ×3 (05:32→21:12)
[2024-04-12] MEDS: LEVOTHYROXINE SODIUM 25 MCG TABLET PO (05:32)
[2024-04-12] MEDS: CYCLObenzaPRINE 5 MG TABLET PO ×2 (05:32→17:47)
[2024-04-12 06:07] LABS: Basophils % (Auto) 1 % (0-2.5); Eosinophils # (Auto) 0.2 Thou/mm3 (0.0-0.5); Eosinophils % (Auto) 2 % (0-10); Hematocrit 29.3 % (41.0-53.0); Hemoglobin 9.2 g/dL (13.5-16.0); Immature Granulocytes % (Auto) 1 % (0-0); Immature Granulocytes Auto 0.08 Thou/mm3 (0.00-0.00); Lymphocytes % (Auto) 12 % (10-50); Mean Corpuscular HGB Conc 31.4 g/dl (31.0-37.0); Mean Corpuscular Hemoglobin 32.7 pg (25.0-35.0); Mean Corpuscular Volume 104 fL (80-100); Monocytes # (Auto) 1.2 Thou/mm3 (0.0-0.8); Monocytes % (Auto) 14 % (0-12); Neutrophils # (Auto) 6.1 Thou/mm3 (1.8-7.7); Neutrophils % (Auto) 71 % (37-80); Nucleated Red Blood Cell % 0 /100 WBC (0); Platelet Count 132 Thou/mm3 (140-440); RDW Standard Deviation 56.5 fL (35.1-43.9); Red Blood Count 2.81 Miln/mm3 (4.50-5.90); White Blood Count 8.5 Thou/mm3 (3.8-10.6)
[2024-04-12 06:32] LABS: Anion Gap 5 (7-16); BUN/Creatinine Ratio 5 Ratio (12-20); Blood Urea Nitrogen 17 mg/dL (9-23); Calcium 9.1 mg/dL (8.3-10.6); Carbon Dioxide 25.4 mMol/L (20.0-31.0); Chloride 99 mMol/L (98-107); Creatinine (Component) 3.5 mg/dL (0.6-1.3); Estimated Creatinine Clearance 34.8 mL/min (>60); Glucose 91 mg/dL (74-106); Osmolality,Calculated 260 (275-295); Potassium 4.3 mMol/L (3.4-5.1); Sodium 129 mMol/L (136-145); eGFR 22 See Note
--- NOTE | 2024-04-12 08:19 | PC.NURSE ---
Patient to dialysis via bed with varnisher apprentice.
--- NOTE | 2024-04-12 09:52 | PD.IDPROG ---
Subjective Subjective Interval history: urine cx noted. no sx noted. on cefepime. organism r but pt doing ok. afebrile. not in icu. no r kleb noted this time Exam Vital Signs Temp Pulse Resp BP Pulse Ox O2 Del Method O2 Flow Rate 97.8 F 115 H 18 117/64 95 Oxy Mask 3 04/12/24 08:15 04/12/24 09:45 04/12/24 08:15 04/12/24 09:45 04/12/24 08:15 04/12/24 07:49 04/12/24 08:15 Narrative Exam getting hd . no sx in urine. verified. is on 3lpm O2 though Objective - Internal Medicine Labs 04/12/24 05:04 04/12/24 05:04 Labs: Laboratory Results - last 24 hr 04/11/24 04/12/24 12:35 05:04 WBC 8.5 RBC 2.81 L Hgb 9.2 L Hct 29.3 L MCV 104 H MCH 32.7 MCHC 31.4 RDW Std Deviation 56.5 H Plt Count 132 L Neut % (Auto) 71 Lymph % (Auto) 12 [place] % (Auto) 14 H Eos % (Auto) 2 Baso % (Auto) 1 Neut # (Auto) 6.1 Lymph # (Auto) 1.0 [place] # (Auto) 1.2 H Eos # (Auto) 0.2 Baso # (Auto) 0.0 Immature Gran # (Auto) 0.08 H Absolute Nucleated RBC 0.00 Immature Gran % 1 H Nucleated RBC % 0 Sodium 137 129 L Potassium 4.0 D 4.3 Chloride 103 99 Carbon Dioxide 24.0 25.4 Anion Gap 10 5 L BUN < 5 L 17 Creatinine 0.2 L D 3.5 H D Estim Creat Clear Calc 608.3 34.8 L eGFR > 60 22 L BUN/Creatinine Ratio 25 H 5 L Glucose 87 91 Calculated Osmolality 270 L 260 L Calcium 9.1 9.1 ABG Interpretation ABG results: 04/10/24 15:05 VBG pH 7.24 L VBG pCO2 58 H VBG pO2 30 VBG Base Excess -3 Assessment & Plan A&P Narrative ASB pneumonia the real reason he is here paraplegia ckd 5 with minimal urine output allergy to penicillins noted. Levaquin for pneumonia. ordered cocci for am home in am ok if you can f/u on the cocci urine is not UTI but ASB Time Spent With Patient Time: Total time spent is greater than 50% in coordination of care (as documented) at patient's floor/unit and/or counseling patient:
--- NOTE | 2024-04-12 10:10 | PD.RESPRO ---
Documentation for date of: 04/12/24 Subjective Subjective Interval history: Mr. Zoran Matson is a 33y/o male with a past medical history of paraplegia since age 13, ESRD on hemodialysis since 2019 (dialysis schedule Friday and Friday, missed his dialysis session day prior to admission 04/09/2024) seeing Dr. Jeff, recurrent nephrolithiasis, recurrent UTIs, chronic catheter usage, s/p tracheostomy, s/p ileostomy, and hypertension who presented on 04/10/2024 for progressively worsening dyspnea x5 days. Patient states that approximately 5 days ago, he began to experience shortness of breath and a pressure in his chest that made it more difficult to breath. He also complains of a productive cough with white-green sputum that has been worsening with time. Along with this, patient states that due to his paraplegia he can not feel below the nipple line, but has been experiencing an ambiguous discomfort in his penis that he associates with his previous UTIs. Patient had a recent admission to [facility] several weeks ago which he states was for pneumonia, and he had to undergo a tracheostomy at that time. He states that he was discharged with antibiotics, and although he does not remember their name, he took the full course as prescribed to him. At home, he uses 3-4L of O2 at baseline. In the ED, patient was found to be afebrile, mildly hypertensive at 139/92, slightly tachycardic at 108, tachypneic at 21, and initially spO2 89%. After albuterol administered in the ED, patient tony to 94% O2 on 5L nasal cannula, which further improved over time. WBC 9.9, Hgb 10.7, Na 130, K 5.3, BUN 24, Cr 5.7, glucose 96, Ca 9.6, Mg 1.8, AST/ALT within normal limits, troponins <0.002. Urinalysis taken positive for leukocyte esterase and bacteria, culture pending. Blood cultures taken and pending. EKG taken demonstrated sinus rhythm. CXR positive for left lung base pneumonia. CTA negative for pulmonary embolism, positive for significant pneumonia of the left lung base. Given patient's previous urine culture showing sensitivity to IV Cefepime, patient was started on IV Cefepime on this visit as empiric abx treatment while waiting for current sensitivities. Patient takes 10mg [place] TID at home for his chronic back pain, so was started on his home dose as pain management. Nephrology was consulted for possible dialysis, and patient was admitted to med surg. Patient seen and examined on dialysis. Patient resting comfortably. No plans for fluid removal, only cleaning during dialysis. Patient has fluid output via Richardson cath 1.8 L. Patient also has ileostomy, unknown fluid output. Unclear cause of ESRD, suspect chronic interstitial nephritis due to recurrent UTIs and nephrolithiasis. Patient normal dialysis schedule Friday and Friday. Missed Fridays dialysis. Sodium 130, potassium 6.0, bicarb 20.5, BUN 25, creatinine 4.5, eGFR 17. 04/12: Patient seen and examined on dialysis. Patient resting comfortably. No fluid removal, only cleaning. 1.4 L urinary output, 1.9 L stool output. Sodium 129, potassium 4.3, bicarb 25.4, BUN 17, creatinine 3.5, eGFR 22. Will continue to monitor. Exam Vital Signs Temp Pulse Resp BP Pulse Ox O2 Del Method O2 Flow Rate 97.8 F 107 H 18 123/57 L 95 Oxy Mask 3 04/12/24 08:15 04/12/24 10:00 04/12/24 08:15 04/12/24 10:00 04/12/24 08:15 04/12/24 07:49 04/12/24 08:15 Narrative Exam PE: Gen: Well-developed and well-nourished. HEENT: NCAT, PERRLA, EOMI, MMM, anicteric conjunctivae. Tracheostomy wound, bandaged. CVS: normal S1 and S2. RRR. No M/R/G. Resp: Congestion throughout all lung chavez. Abd: soft, non-tender, non-distended. Ileostomy. Scarring from multiple surgeries including open abdominal surgery. PEG tube. MSK: Good ROM in BUE . No rash. Mild bilateral lower extremity edema. Neuro: CN II-XII grossly intact. Strength 5/5 in BUE. Alert and oriented x3. Paraplegic. Objective Labs 04/12/24 05:04 04/12/24 05:04 Labs: Laboratory Results - last 24 hr 04/11/24 04/12/24 12:35 05:04 WBC 8.5 RBC 2.81 L Hgb 9.2 L Hct 29.3 L MCV 104 H MCH 32.7 MCHC 31.4 RDW Std Deviation 56.5 H Plt Count 132 L Neut % (Auto) 71 Lymph % (Auto) 12 [place] % (Auto) 14 H Eos % (Auto) 2 Baso % (Auto) 1 Neut # (Auto) 6.1 Lymph # (Auto) 1.0 [place] # (Auto) 1.2 H Eos # (Auto) 0.2 Baso # (Auto) 0.0 Immature Gran # (Auto) 0.08 H Absolute Nucleated RBC 0.00 Immature Gran % 1 H Nucleated RBC % 0 Sodium 137 129 L Potassium 4.0 D 4.3 Chloride 103 99 Carbon Dioxide 24.0 25.4 Anion Gap 10 5 L BUN < 5 L 17 Creatinine 0.2 L D 3.5 H D Estim Creat Clear Calc 608.3 34.8 L eGFR > 60 22 L BUN/Creatinine Ratio 25 H 5 L Glucose 87 91 Calculated Osmolality 270 L 260 L Calcium 9.1 9.1 ABG Interpretation ABG results: 04/10/24 15:05 VBG pH 7.24 L VBG pCO2 58 H VBG pO2 30 VBG Base Excess -3 Quality Measures Quality Measures VTE prophylaxis Assessment & Plan Assessment Current Active Medications: Generic Name Dose Route Start Last Admin Trade Name Freq PRN Reason Stop Dose Admin Acetaminophen 650 mg 04/10/24 17:17 Acetaminophen 325 Mg Tablet PO 05/10/24 17:16 Q6H PRN PAIN SCALE 1-3 (mild Hydrocodone Bitart/Acetaminophen 1 tab 04/11/24 12:06 04/12/24 00:45 Hydrocodone/Apap 10/325 Tab PO 04/15/24 17:16 1 tab Q8H PRN Administration Pain Scale 4-10 Cyclobenzaprine HCl 5 mg 04/10/24 18:48 04/12/24 05:32 Cyclobenzaprine 5 Mg Tablet PO 05/10/24 18:47 5 mg TID PRN Administration MUSCLE SPASMS Gabapentin 600 mg 04/10/24 22:00 04/12/24 05:32 Gabapentin 300 Mg Capsule PO 05/10/24 21:59 600 mg TID FOREIGN Administration Hydromorphone HCl 0.5 mg 04/11/24 12:01 04/12/24 08:17 Hydromorphone Inj 2 Mg/Ml Vial IVP 04/15/24 17:16 0.5 mg Q2H PRN Administration Breakthrough pain Albumin Human 25 gm in 100 mls @ 100 mls/min 04/11/24 08:52 Albuminar-25 Ivpb IV PRN PRN DIALYSIS Levofloxacin 250 mg 04/13/24 09:00 Levofloxacin 250 Mg Tablet PO 04/17/24 12:00 QDAY FOREIGN Levothyroxine Sodium 25 mcg 04/12/24 06:00 04/12/24 05:32 Levothyroxine Sodium 25 Mcg Tablet PO 05/12/24 05:59 25 mcg ACBR FOREING Administration Midodrine 10 mg 04/10/24 18:48 Midodrine 5 Mg Tablet PO 05/10/24 21:59 TID PRN HYPOTENSION SBP <100 Ondansetron HCl 4 mg 04/10/24 17:17 Ondansetron Inj 2 Mg/Ml Inj 2 Ml IV 05/10/24 17:16 Q6H PRN NAUSEA OR VOMITING Protocol Plan 33 y/o male with PMHx significant for paraplegia since age 13, ESRD on hemodialysis since 2019 (dialysis schedule Friday and Friday, missed his dialysis session day prior to admission 04/09/2024) seeing Dr. Jeff, recurrent nephrolithiasis, recurrent UTIs, chronic catheter usage, s/p tracheostomy, s/p ileostomy, and hypertension who presented on 04/10/2024 for progressively worsening dyspnea x5 days, admitted for pneumonia. #ESRD on Hemodialysis (M/F dialysis) #Electrolyte Imbalance On arrival, Na 130, K 5.3, BUN 24, Cr 4.7. Patient had missed last day of dialysis due to feeling weak from pneumonia and UTI. Patient has mild hyponatremia 130, hyperkalemia worsening from 5.3-6.0. Patient produces good urine, receives dialysis for cleaning only. -Dialysis today -Renally dose meds -Avoid nephrotoxic medications -Monitor daily labs #Left-Sided Community-Acquired Pneumonia #Acute on Chronic Hypoxic Respiratory Failure #Urinary Tract Infection, complicated #Chronic Catheter #Essential Hypertension #Chronic Back Pain #Paraplegia #Hypothyroidism Management as per primary team. DVT prophylaxis: SCDs GI prophylaxis: None Diet: Renal Lines: Ileostomy, Richardson cath, peripheral IV, PEG tube Code status: Full code Thank you for allowing me to participate in the care of this patient. Plan of care discussed with attending Dr. Haines. Ronak Morton MD PGY-1 Attending Provider Attestation/Addendum Patient seen and examined with resident physician Dr. Norris. Note reviewed, agree with findings and recommendations. Patient currently seen on dialysis. Tolerating dialysis without any problems. Hemodialysis for 3 hours, 2K, ultrafiltration 0 L, Epogen 6000, no heparin ordered. Plan of care discussed with the dialysis nurse. Please see dialysis flowsheet for further details. Currently on antibiotics. Labs showed that his hemoglobin is 9.2, platelets 132. Sodium 129, potassium 4.3, BUN 17, creatinine 3.5. Renal emmanuel stable for discharge. Patient goes to dialysis twice weekly. If he remains still Friday please call Dr Steel for dialysis. I will be away on vacation starting 04/13/2024 through 04/17/2024. Dr Steel will be covering for me
--- NOTE | 2024-04-12 10:15 | ESPR_ITS ---
Subjective Subjective Interval history: pt cx noted . seen in hd. looks great. is on O2 Exam Vital Signs Temp Pulse Resp BP Pulse Ox O2 Del Method O2 Flow Rate 97.8 F 107 H 18 123/57 L 95 Oxy Mask 3 04/12/24 08:15 04/12/24 10:00 04/12/24 08:15 04/12/24 10:00 04/12/24 08:15 04/12/24 07:49 04/12/24 08:15 Narrative Exam pt seen. in hd. looks great. afebrile. Objective - Internal Medicine Labs 04/12/24 05:04 04/12/24 05:04 Labs: Laboratory Results - last 24 hr 04/11/24 04/12/24 12:35 05:04 WBC 8.5 RBC 2.81 L Hgb 9.2 L Hct 29.3 L MCV 104 H MCH 32.7 MCHC 31.4 RDW Std Deviation 56.5 H Plt Count 132 L Neut % (Auto) 71 Lymph % (Auto) 12 [place] % (Auto) 14 H Eos % (Auto) 2 Baso % (Auto) 1 Neut # (Auto) 6.1 Lymph # (Auto) 1.0 [place] # (Auto) 1.2 H Eos # (Auto) 0.2 Baso # (Auto) 0.0 Immature Gran # (Auto) 0.08 H Absolute Nucleated RBC 0.00 Immature Gran % 1 H Nucleated RBC % 0 Sodium 137 129 L Potassium 4.0 D 4.3 Chloride 103 99 Carbon Dioxide 24.0 25.4 Anion Gap 10 5 L BUN < 5 L 17 Creatinine 0.2 L D 3.5 H D Estim Creat Clear Calc 608.3 34.8 L eGFR > 60 22 L BUN/Creatinine Ratio 25 H 5 L Glucose 87 91 Calculated Osmolality 270 L 260 L Calcium 9.1 9.1 ABG Interpretation ABG results: 04/10/24 15:05 VBG pH 7.24 L VBG pCO2 58 H VBG pO2 30 VBG Base Excess -3 Assessment & Plan A&P Narrative ASB pneumonia, the real reason he is here paraplegia ckd 5 with minimal urine output allergy to penicillins noted. oral Levaquin for pneumonia. prior hiv and hep c neg ordered cocci for am home in am ok if you can f/u on the cocci urine is not UTI but ASB if you call it a uti, then you have to treat it with ertapenem 1 gm iv daily for 7d. Time Spent With Patient Time: Total time spent is greater than 50% in coordination of care (as documented) at patient's floor/unit and/or counseling patient:
--- NOTE | 2024-04-12 11:45 | PC.NURSE ---
Patient returned to unit from dialysis via bed with customer account coordinator. Patient made comfortable in bed, call light and personal belongings placed within reach. No fluid removal per KENIA Tong.
--- NOTE | 2024-04-12 11:53 | PC.NURSE ---
Dialysis completed for 3 hrs, tolerated well. Respiration even and unlabored sating at 95% on O2 at 3L/min via nc. No fluid removal per MD. Post tx BP 102/53, HR 114, Temp 97.8. Pt back in his rm. Call light within reached. Pressure dressing on right upper arm AV fistula clean/dry/intact. No bleeding noted. Pressure dressing to be remove at 1400. Report given to Rxoann AQUINO
--- NOTE | 2024-04-12 12:28 | PC.SS ---
SS met with pt regarding his d/c plan. Pt is alert/oriented. Pt was admitted for Pneumonia and UTI. Pt confirmed demographic and contact information is correct on his facesheet. Pt resides with mom and brother. Pt utilizes a power chair and has wheelchair. Pt transfers into wheelchair with malia lift. Pt states his brother Paul is his SS caregiver. Pt utilizes home O2 at home from [facility]. Pt is an established dialysis pt with [facility] at 10:45 and uses [facility] to dialysis. Pt followed up with PCP 2 months ago and his next appointment is Jun 17, 2024. Pt will require transportation home upon dc. Pt named his mom, Juliana Matson medical decision maker is she is unable. DC Plan: Return home Next of Kin: Juliana Matson, mom, phone# [phone] PCP: Bryce Bunn from [facility] Address: Correct on facesheet
--- NOTE | 2024-04-12 16:39 | ESPR_ITS ---
<Statement entered by Naomi aMscorro MD - 04/12/24 22:45> I discussed with and supervised the wildlife biology internship physician who took care of this patient. I personally saw and examined the patient and discussed the assessment and plan with the entire medicine team, including my attending , I agree with most of the assessment and plan as documented below Naomi Mascorro M.D. PGY-2 Documentation for date of: 04/12/24 Subjective Subjective Interval history: Patient was seen and examined at bedside. No acute events overnight. Patient denies having any fever, dysuria, cough, chest pain. Able to sleep well overnight. Dr Pelayo was consulted who recommended to change antibiotic from IV cefepime to oral Levaquin for pneumonia. Also states that since patient remains asymptomatic UTI is not requiring treatment and would be considered asymptomatic bacteriuria. Vitals today significant for soft blood pressure 96/67, tachycardia 115. No longer requiring oxygen via nasal cannula. Adequately saturating on room air. WBC downtrending 8.5, hemoglobin 9.2, sodium downtrending 129, potassium 4.3, creatinine 3.5. Patient underwent dialysis session today with no fluid removal. Hyperkalemia is resolving. Review of systems otherwise negative except what is mentioned above. Exam Vital Signs Temp Pulse Resp BP Pulse Ox O2 Del Method O2 Flow Rate 97.8 F 107 H 18 112/75 99 Oxy Mask 3 04/12/24 16:00 04/12/24 16:00 04/12/24 16:00 04/12/24 16:00 04/12/24 16:00 04/12/24 16:00 04/12/24 16:00 Narrative Exam Gen: Alert, oriented x3, responsive to questions, tired-appearing, in no acute distress HEENT: NCAT, PERRLA, EOMI, MMM, anicteric conjunctivae. CVS: normal S1 and S2. RRR. No M/R/G. Resp: Left lung base crackles present, bilateral expiratory wheezing auscultated, mildly tachypneic, no accessory muscle usage, tracheostomy site closed and scarred over Abd: Ostomy site present, abdomen soft, non-tender, non-distended. BS+ in all 4 quadrants. MSK: Paraplegic and unable to move lower extremities Neuro: CN II-XII grossly intact. Strength 5/5 in BUE, no motorsensory function below nipple line Psych: appropriate mood and affect. Objective Labs 04/13/24 05:01 04/13/24 05:01 Labs: Laboratory Results - last 24 hr 04/12/24 05:04 WBC 8.5 RBC 2.81 L Hgb 9.2 L Hct 29.3 L MCV 104 H MCH 32.7 MCHC 31.4 RDW Std Deviation 56.5 H Plt Count 132 L Neut % (Auto) 71 Lymph % (Auto) 12 [place] % (Auto) 14 H Eos % (Auto) 2 Baso % (Auto) 1 Neut # (Auto) 6.1 Lymph # (Auto) 1.0 [place] # (Auto) 1.2 H Eos # (Auto) 0.2 Baso # (Auto) 0.0 Immature Gran # (Auto) 0.08 H Absolute Nucleated RBC 0.00 Immature Gran % 1 H Nucleated RBC % 0 Sodium 129 L Potassium 4.3 Chloride 99 Carbon Dioxide 25.4 Anion Gap 5 L BUN 17 Creatinine 3.5 H D Estim Creat Clear Calc 34.8 L eGFR 22 L BUN/Creatinine Ratio 5 L Glucose 91 Calculated Osmolality 260 L Calcium 9.1 ABG Interpretation ABG results: 04/10/24 15:05 VBG pH 7.24 L VBG pCO2 58 H VBG pO2 30 VBG Base Excess -3 Quality Measures Quality Measures VTE prophylaxis Assessment & Plan Assessment Current Active Medications: Generic Name Dose Route Start Last Admin Trade Name Princeq PRN Reason Stop Dose Admin Acetaminophen 650 mg 04/10/24 17:17 Acetaminophen 325 Mg Tablet PO 05/10/24 17:16 Q6H PRN PAIN SCALE 1-3 (mild Hydrocodone Bitart/Acetaminophen 1 tab 04/11/24 12:06 04/12/24 12:19 Hydrocodone/Apap 10/325 Tab PO 04/15/24 17:16 1 tab Q8H PRN Administration Pain Scale 4-10 Cyclobenzaprine HCl 5 mg 04/10/24 18:48 04/12/24 05:32 Cyclobenzaprine 5 Mg Tablet PO 05/10/24 18:47 5 mg TID PRN Administration MUSCLE SPASMS Gabapentin 600 mg 04/10/24 22:00 04/12/24 13:12 Gabapentin 300 Mg Capsule PO 05/10/24 21:59 600 mg TID FOREIGN Administration Hydromorphone HCl 0.5 mg 04/11/24 12:01 04/12/24 16:31 Hydromorphone Inj 2 Mg/Ml Vial IVP 04/15/24 17:16 0.5 mg Q2H PRN Administration Breakthrough pain Albumin Human 25 gm in 100 mls @ 100 mls/min 04/11/24 08:52 Albuminar-25 Ivpb IV PRN PRN DIALYSIS Levofloxacin 250 mg 04/13/24 09:00 Levofloxacin 250 Mg Tablet PO 04/17/24 12:00 QDAY FOREIGN Levothyroxine Sodium 25 mcg 04/12/24 06:00 04/12/24 05:32 Levothyroxine Sodium 25 Mcg Tablet PO 05/12/24 05:59 25 mcg ACBR FOREIGN Administration Midodrine 10 mg 04/10/24 18:48 Midodrine 5 Mg Tablet PO 05/10/24 21:59 TID PRN HYPOTENSION SBP <100 Ondansetron HCl 4 mg 04/10/24 17:17 Ondansetron Inj 2 Mg/Ml Inj 2 Ml IV 05/10/24 17:16 Q6H PRN NAUSEA OR VOMITING Protocol Plan Mr. Zoran Matson is a 33y/o male with a past medical history of paraplegia since age 13, ESRD on hemodialysis since 2019 (dialysis schedule Friday and Friday, missed his dialysis session day prior to admission 04/09/2024) seeing Dr. Jeff, recurrent nephrolithiasis, recurrent UTIs, chronic catheter usage, s/p tracheostomy, s/p ileostomy, and hypertension who presented on 04/10/2024 for progressively worsening dyspnea x5 days. Patient states that approximately 5 days ago, he began to experience shortness of breath and a pressure in his chest that made it more difficult to breath. He also complains of a productive cough with white-green sputum that has been worsening with time. Along with this, patient states that due to his paraplegia he can not feel below the nipple line, but has been experiencing an ambiguous discomfort in his penis that he associates with his previous UTIs. #Sepsis Secondary to Left-Sided Community-Acquired Pneumonia #Acute on Chronic Hypoxic Respiratory Failure As seen on both CXR and CTA on admission. Ruled out pulmonary embolism per CTA as source of patient's difficulty breathing and tachypneic status. Home O2 usage 4L at baseline - Supplemental O2 as needed - Wean O2 until patient's baseline as tolerated (baseline 4L O2 nasal cannula) - stop course of IV Cefepime (Course: 04/10-04/12) -Per ID recommendations, start patient on levofloxacin for treatment of pneumonia - If breathing treatments needed, consider Levoalbuterol in place of Duonebs as smaller tachycardic effect with Levoalbuterol #ESRD on Hemodialysis (M/F dialysis) #Electrolyte Imbalance On arrival, Na 130, K 5.3, BUN 24, Cr 4.7. Patient had missed last day of dialysis due to feeling weak from pneumonia and UTI - Mild hyponatremia at 129 today, will monitor AM for changes - No EKG changes noted on repeat test this morning - Loader Engineer Dr. Haines consulted, appreciate recommendations - Midodrine 10mg PO TID prn hypotension from dialysis - Last dialyzed in hospital 04/12/2024 - Albuterol given this morning to lower hyperkalemia in interim before hemodialysis -Potassium 4.3 today # Asymptomatic bacteriuria #Chronic Catheter -Urine culture positive for E. coli however patient denies any dysuria, discomfort - Monitor brody catheter and urine drainage daily - Infectious Disease Dr. Pelayo consulted --does not recommend treatment if patient continues to remain asymptomatic #Essential Hypertension Diagnosis present prior to arrival, initial blood pressure well-controlled at 110/76 - Hold amlodipine - Midodrine 10mg PO TID prn hypotension from dialysis #Chronic Back Pain #Paraplegia - Continue home dose of [place] 10mg PO TID - Continue home dose of gabapentin 600mg PO TID and cyclobenzaprine 5mg PO q8h prn pain - Increased breakthrough pain medication Dilaudid to 0.5mg q2h prn #Hypothyroidism - Continue home levothyroxine 25mg PO QD Health maintenance: Disposition: Med surg Diet: Renal diet GI prophylaxis: None indicated DVT prophylaxis: SCDs Code: Full code Case disclosed with Attending Dr. Muhammad and my senior Dr. Mascorro PGY2. Shayna Moses, PGY1 Attending Provider Attestation/Addendum I have examined the patient, reviewed labs and imaging findings, discussed the case with the resident(s), and reviewed entered orders. I agree with the plan of care as outlined in this note, with these additional summaries/recommendations: Patient is a 33-year-old male with a medical history of paraplegia, tracheostomy, ESRD on HD MF, recurrent UTIs, primary hypertension, hypothyroidism, chronic pain, recurrent hyperkalemia who presented to [facility] emergency department on 04/10/2024 with chief complaint of shortness of breath. Patient diagnosed with acute on chronic hypoxic respiratory failure secondary to pneumonia and thus hospitalist team was consulted for continuation of care. # Acute on chronic hypoxic respiratory failure # Pneumonia of left lung CXR and CTA chest showed significant left base pneumonia S/P IV cefepime () as patient recently hospitalized at [facility] and will cover for HAP blood cultures negative at 24 hours although we will wait 48-hour brian Infectious disease following and patient transition to levofloxacin (04/12-*) #ESRD #Hyperkalemia On hemodialysis Friday and Friday with nephrology Dr. Jeff In-house nephrology consulted Potassium 5.3 on admission Renally dose medications and avoid nephrotoxic agents Plan: Continue inpatient hemodialysis #?Complicated urinary tract infection Urinalysis indicative of UTI Brody catheter exchange ordered Urine cx E. coli #2 Plan: Continue levofloxacin # Sinus tachycardia Likely related to underlying infection Status post low-dose fluids Plan: Monitor for improvement while treating underlying infection. If no improvement we will consider starting Rx/consulting cardiology # Chronic hypotension Blood pressure currently stable Plan: Continue midodrine as needed for SBP less than 100 # Paraplegia # Chronic pain Continue home gabapentin, cyclobenzaprine, and as needed Sum[place] # Hypothyroidism Continue home levothyroxine Dr. Muhammad
[2024-04-12] MEDS: MEROPENEM INJ 1,000 MG in SODIUM CHLORIDE 0.9% (P) 50 ML 100 MG IV (22:28)
[2024-04-13] VITALS (13 sets, daily range): BP systolic 92–118; BP diastolic 64–78; PULSE 91–140; RESP 13–30; TEMP 36.1–36.3; O2SAT 98–100
[2024-04-13] MEDS: HYDROmorphone INJ 2 MG/ML VIAL 0.5 MG IVP ×6 (01:52→23:13)
[2024-04-13] MEDS: GABAPENTIN 300 MG CAPSULE 600 MG PO ×3 (05:11→21:16)
[2024-04-13] MEDS: MEROPENEM INJ 1,000 MG in SODIUM CHLORIDE 0.9% (P) 50 ML 100 MG IV ×2 (05:11→14:29)
[2024-04-13] MEDS: LEVOTHYROXINE SODIUM 25 MCG TABLET PO (05:11)
[2024-04-13 05:35] LABS: Basophils # (Auto) 0.1 Thou/mm3 (0.0-0.2); Basophils % (Auto) 1 % (0-2.5); Eosinophils # (Auto) 0.2 Thou/mm3 (0.0-0.5); Eosinophils % (Auto) 4 % (0-10); Hematocrit 29.6 % (41.0-53.0); Hemoglobin 9.4 g/dL (13.5-16.0); Immature Granulocytes % (Auto) 1 % (0-0); Immature Granulocytes Auto 0.05 Thou/mm3 (0.00-0.00); Lymphocytes # (Auto) 0.9 Thou/mm3 (1.0-4.8); Lymphocytes % (Auto) 17 % (10-50); Mean Corpuscular HGB Conc 31.8 g/dl (31.0-37.0); Mean Corpuscular Hemoglobin 32.5 pg (25.0-35.0); Mean Corpuscular Volume 102 fL (80-100); Monocytes # (Auto) 0.7 Thou/mm3 (0.0-0.8); Monocytes % (Auto) 13 % (0-12); Neutrophils # (Auto) 3.4 Thou/mm3 (1.8-7.7); Neutrophils % (Auto) 64 % (37-80); Nucleated Red Blood Cell % 0 /100 WBC (0); Platelet Count 135 Thou/mm3 (140-440); RDW Standard Deviation 55.6 fL (35.1-43.9); Red Blood Count 2.89 Miln/mm3 (4.50-5.90); White Blood Count 5.3 Thou/mm3 (3.8-10.6)
[2024-04-13 06:37] LABS: Anion Gap 5 (7-16); BUN/Creatinine Ratio 5 Ratio (12-20); Blood Urea Nitrogen 16 mg/dL (9-23); Calcium 9.2 mg/dL (8.3-10.6); Carbon Dioxide 26.4 mMol/L (20.0-31.0); Chloride 101 mMol/L (98-107); Estimated Creatinine Clearance 39.9 mL/min (>60); Glucose 88 mg/dL (74-106); Osmolality,Calculated 264 (275-295); Potassium 3.9 mMol/L (3.4-5.1); Sodium 132 mMol/L (136-145); eGFR 27 See Note
--- NOTE | 2024-04-13 10:25 | XR_ITS ---
Examination: AP chest single view Technique one AP portable supine chest single view Exam date and time: April 13, 2024 11:20 AM Comparison April 10, 2024 INDICATIONS: Tachypnea today. FINDINGS: Mild prominence cardiac contour Prominent vascular congestion Significant left lung pneumonia including air bronchograms left lower lobe Orthopedic hardware upper dorsal spine IMPRESSION: Prominent vascular congestion Significant left lung pneumonia
--- NOTE | 2024-04-13 10:25 | EKG_ITS ---
[facility] Test Date: 2024-04-13 Pat Name: KENNEDY LEDEZMA [facility] Gender[facility] Male Continuity Reader: KELI : 1990 Requested By: Nahid Mak Order Number: [id number] Reading MD: Nahid Mak Measurements Intervals [place] Rate: 105 P: OR: QRS: -6 QRSD: 99 T: 63 QT: 318 QTc: 421 Interpretive Statements ATRIAL FLUTTER/TACHYCARDIA WITH RAPID VENTRICULAR RESPONSE ABNORMAL RHYTHM ECG Compared to ECG 04/11/2024 09:11:38 Sinus tachycardia no longer present Incomplete right bundle-branch block no longer present Left anterior fascicular block no longer present /store/S0/[id number]/ecg/[id number].pdf
--- NOTE | 2024-04-13 11:32 | PC.NURSE ---
Notified Dr Key pt's HR went up to 140, did not sustain. Current vital signs are B/P: 103/68, HR:122, R/R: 22, O2: 96% on 9L Oxy Mask. Patient is not complaining of any dizziness, sob, or chest pain. Dr montes pt has had bouts of tachycardia in the past. No new orders given at this time.
[2024-04-13 12:04] LABS: Base Excess -1 (-3-3); HCO3 27 mEq/L (20-26); Inspired Oxygen, FIO2 6 %; O2 Saturation 97 % (91-98); PCO2 60 mmHg (32.0-48.0); PO2 77 mmHg (83-108); pH, Arterial 7.26 (7.35-7.45)
[2024-04-13 12:06] LABS: Allen Test Performed/OK; Puncture Site Left Radial
[2024-04-13] MEDS: FUROSEMIDE INJ 10 MG/ML VIAL 2 ML 40 MG IVP (12:12)
[2024-04-13 13:04] LABS: Cocci Serology, IgM Negative (Negative)
[2024-04-13] MEDS: HYDROcodone/APAP 10/325 TAB PO (15:03)
--- NOTE | 2024-04-13 16:15 | PD.RESPRO ---
Documentation for date of: 04/13/24 Subjective Subjective Interval history: Mr. Zoran Matson is a 33y/o male with a past medical history of paraplegia since age 13, ESRD on hemodialysis since 2019 (dialysis schedule Friday and Friday, missed his dialysis session day prior to admission 04/09/2024) seeing Dr. Jeff, recurrent nephrolithiasis, recurrent UTIs, chronic catheter usage, s/p tracheostomy, s/p ileostomy, and hypertension who presented on 04/10/2024 for progressively worsening dyspnea x5 days. Patient states that approximately 5 days ago, he began to experience shortness of breath and a pressure in his chest that made it more difficult to breath. He also complains of a productive cough with white-green sputum that has been worsening with time. Along with this, patient states that due to his paraplegia he can not feel below the nipple line, but has been experiencing an ambiguous discomfort in his penis that he associates with his previous UTIs. Patient had a recent admission to [facility] several weeks ago which he states was for pneumonia, and he had to undergo a tracheostomy at that time. He states that he was discharged with antibiotics, and although he does not remember their name, he took the full course as prescribed to him. At home, he uses 3-4L of O2 at baseline. In the ED, patient was found to be afebrile, mildly hypertensive at 139/92, slightly tachycardic at 108, tachypneic at 21, and initially spO2 89%. After albuterol administered in the ED, patient tony to 94% O2 on 5L nasal cannula, which further improved over time. WBC 9.9, Hgb 10.7, Na 130, K 5.3, BUN 24, Cr 5.7, glucose 96, Ca 9.6, Mg 1.8, AST/ALT within normal limits, troponins <0.002. Urinalysis taken positive for leukocyte esterase and bacteria, culture pending. Blood cultures taken and pending. EKG taken demonstrated sinus rhythm. CXR positive for left lung base pneumonia. CTA negative for pulmonary embolism, positive for significant pneumonia of the left lung base. Given patient's previous urine culture showing sensitivity to IV Cefepime, patient was started on IV Cefepime on this visit as empiric abx treatment while waiting for current sensitivities. Patient takes 10mg Allison TID at home for his chronic back pain, so was started on his home dose as pain management. [employer] Dr. Haines was consulted for possible dialysis, and patient was admitted to med surg. 04/11: Overnight, patient had a rapid response called for tachycardia into the 130s. His other vitals were within normal limits and and he was in no acute distress at that time. Appeared dry, so he was given 1L normal saline. Tachycardia likely response to patient's pneumonia vs. hyperkalemia, although findings on EKG were only positive for sinus tachycardia. This morning, patient's tachycardia continuining into the 120s. WBC count elevated from 9.9 -> 11.9. Sodium 130, potassium tony 5.3 -> 6.0 with BUN/Cr relatively stable. Dialysis performed this morning, neprhology following, appreciate reccomendations. 04/12: Patient was seen and examined at bedside. No acute events overnight. Patient denies having any fever, dysuria, cough, chest pain. Able to sleep well overnight. Dr Pelayo was consulted who recommended to change antibiotic from IV cefepime to oral Levaquin for pneumonia. Also states that since patient remains asymptomatic UTI is not requiring treatment and would be considered asymptomatic bacteriuria. Vitals today significant for soft blood pressure 96/67, tachycardia 115. No longer requiring oxygen via nasal cannula. Adequately saturating on room air. WBC downtrending 8.5, hemoglobin 9.2, sodium downtrending 129, potassium 4.3, creatinine 3.5. Patient underwent dialysis session today with no fluid removal. Hyperkalemia is resolving. 04/13: No acute overnight events. Patient switched from IV Cefepime to IV meropenem per culture sensitivities. This morning on examination, patient somnolent and falling asleep while being asked questions. He had just received a dose of Dilaudid for pain management. Later in the day, patient more easily rousable and in no acute distress. CXR shows continuining significant left basilar lung pneumonia, ABG showed pH 7.26, pCO2 60, pO2 77, HCO3 27. Still requiring higher supplemental oxygen than his baseline, currently at spO2 99% on oxy mask 10L. Will transition to high-flow oxygen during day and BiPAP at night for improved oxygenation, and due to patient's somnolence during the day and reported apnic episodes at night per nurses. Exam Vital Signs Temp Pulse Resp BP Pulse Ox O2 Del Method O2 Flow Rate 97.2 F 100 20 118/76 100 Oxy Mask 8 04/13/24 16:00 04/13/24 16:00 04/13/24 16:00 04/13/24 16:00 04/13/24 16:00 04/13/24 16:00 04/13/24 16:00 FiO2 35 04/13/24 15:48 Narrative Exam Gen: Alert, oriented x3, responsive to questions, tired-appearing, in no acute distress HEENT: NCAT, PERRLA, EOMI, MMM, anicteric conjunctivae. CVS: normal S1 and S2. RRR. No M/R/G. Resp: Left lung base crackles present, bilateral expiratory wheezing auscultated, mildly tachypneic, no accessory muscle usage, tracheostomy site closed and scarred over Abd: Ostomy site present, abdomen soft, non-tender, non-distended. BS+ in all 4 quadrants. MSK: Paraplegic and unable to move lower extremities Neuro: CN II-XII grossly intact. Strength 5/5 in BUE, no motorsensory function below nipple line Psych: appropriate mood and affect. Objective Labs 04/13/24 05:01 04/13/24 05:01 Labs: Laboratory Results - last 24 hr 04/13/24 04/13/24 05:01 11:54 WBC 5.3 RBC 2.89 L Hgb 9.4 L Hct 29.6 L MCV 102 H MCH 32.5 MCHC 31.8 RDW Std Deviation 55.6 H Plt Count 135 L Neut % (Auto) 64 Lymph % (Auto) 17 [place] % (Auto) 13 H Eos % (Auto) 4 Baso % (Auto) 1 Neut # (Auto) 3.4 Lymph # (Auto) 0.9 L [place] # (Auto) 0.7 Eos # (Auto) 0.2 Baso # (Auto) 0.1 Immature Gran # (Auto) 0.05 H Absolute Nucleated RBC 0.00 Immature Gran % 1 H Nucleated RBC % 0 Puncture Site Left Radial ABG pH 7.26 L ABG pCO2 60 H ABG pO2 77 L ABG HCO3 27 H ABG O2 Saturation 97 ABG Base Excess -1 FiO2 6 Sodium 132 L Potassium 3.9 Chloride 101 Carbon Dioxide 26.4 Anion Gap 5 L BUN 16 Creatinine 3.0 H D Estim Creat Clear Calc 39.9 L eGFR 27 L BUN/Creatinine Ratio 5 L Glucose 88 Calculated Osmolality 264 L Calcium 9.2 Coccidioides IgM Ab Negative ABG Interpretation ABG results: 04/10/24 04/13/24 15:05 11:54 ABG pH 7.26 L ABG pCO2 60 H ABG pO2 77 L ABG HCO3 27 H ABG O2 Saturation 97 ABG Base Excess -1 VBG pH 7.24 L VBG pCO2 58 H VBG pO2 30 VBG Base Excess -3 Quality Measures Quality Measures VTE prophylaxis Assessment & Plan Assessment Current Active Medications: Generic Name Dose Route Start Last Admin Trade Name Freq PRN Reason Stop Dose Admin Acetaminophen 650 mg 04/10/24 17:17 Acetaminophen 325 Mg Tablet PO 05/10/24 17:16 Q6H PRN PAIN SCALE 1-3 (mild Hydrocodone Bitart/Acetaminophen 1 tab 04/11/24 12:06 04/13/24 15:03 Hydrocodone/Apap 10/325 Tab PO 04/15/24 17:16 1 tab Q8H PRN Administration Pain Scale 4-10 Cyclobenzaprine HCl 5 mg 04/10/24 18:48 04/12/24 17:47 Cyclobenzaprine 5 Mg Tablet PO 05/10/24 18:47 5 mg TID PRN Administration MUSCLE SPASMS Gabapentin 600 mg 04/10/24 22:00 04/13/24 14:29 Gabapentin 300 Mg Capsule PO 05/10/24 21:59 600 mg TID FOREIGN Administration Hydromorphone HCl 0.5 mg 04/11/24 12:01 04/13/24 12:13 Hydromorphone Inj 2 Mg/Ml Vial IVP 04/15/24 17:16 0.5 mg Q2H PRN Administration Breakthrough pain Albumin Human 25 gm in 100 mls @ 100 mls/min 04/11/24 08:52 Albuminar-25 Ivpb IV PRN PRN DIALYSIS Meropenem 1,000 mg/ Sodium 50 mls @ 100 mls/hr 04/12/24 22:00 04/13/24 14:29 Chloride IV 04/19/24 21:59 100 mls/hr Q8HR FOREIGN Administration Levothyroxine Sodium 25 mcg 04/12/24 06:00 04/13/24 05:11 Levothyroxine Sodium 25 Mcg Tablet PO 05/12/24 05:59 25 mcg ACBR FOREING Administration Midodrine 10 mg 04/10/24 18:48 Midodrine 5 Mg Tablet PO 05/10/24 21:59 TID PRN HYPOTENSION SBP <100 Ondansetron HCl 4 mg 04/10/24 17:17 Ondansetron Inj 2 Mg/Ml Inj 2 Ml IV 05/10/24 17:16 Q6H PRN NAUSEA OR VOMITING Protocol Plan Mr. Zoran Matson is a 33y/o male with a past medical history of paraplegia since age 13, ESRD on hemodialysis since 2019 (dialysis schedule Friday and Friday, missed his dialysis session day prior to admission 04/09/2024) seeing Dr. Jeff, recurrent nephrolithiasis, recurrent UTIs, chronic catheter usage, s/p tracheostomy, s/p ileostomy, and hypertension who presented on 04/10/2024 for progressively worsening dyspnea x5 days. Patient states that approximately 5 days ago, he began to experience shortness of breath and a pressure in his chest that made it more difficult to breath. He also complains of a productive cough with white-green sputum that has been worsening with time. Along with this, patient states that due to his paraplegia he can not feel below the nipple line, but has been experiencing an ambiguous discomfort in his penis that he associates with his previous UTIs. #Sepsis Secondary to Left-Sided Community-Acquired Pneumonia #Acute on Chronic Hypoxic Respiratory Failure As seen on both CXR and CTA on admission. Ruled out pulmonary embolism per CTA as source of patient's difficulty breathing and tachypneic status. Home O2 usage 4L at baseline - Supplemental O2 as needed - Wean O2 until patient's baseline as tolerated (baseline 4L O2 nasal cannula) - Stopped course of IV Cefepime (Course: 04/10-04/12) and transitioned to IV meropenem - If breathing treatments needed, consider Levoalbuterol in place of Duonebs as smaller tachycardic effect with Levoalbuterol - Gave dose of Lasix 40mg x1 to encourage diuresis and improve respiratory status - Ordered high-flow oxygen during the day, BiPAP at night as patient experiencing apnic episodes during his sleep per nurse #ESRD on Hemodialysis (M/F dialysis) #Electrolyte Imbalance On arrival, Na 130, K 5.3, BUN 24, Cr 4.7. Patient had missed last day of dialysis due to feeling weak from pneumonia and UTI - Mild hyponatremia improving, continue to monitor - [employer] Dr. Haines consulted, appreciate recommendations - Midodrine 10mg PO TID prn hypotension from dialysis - Last dialyzed in hospital 04/12/2024 #Asymptomatic Bacteriuria #Chronic Catheter - Urine culture positive for E. coli however patient denies any dysuria, discomfort - Monitor brody catheter and urine drainage daily - Infectious Disease Dr. Pelayo consulted - he does not recommend treatment as long as patient remains asymptomatic #Essential Hypertension Diagnosis present prior to arrival, initial blood pressure well-controlled at 110/76 - Hold amlodipine as patient's blood pressure is slightly soft - Midodrine 10mg PO TID prn hypotension from dialysis #Chronic Back Pain #Paraplegia - Continue home dose of Allison 10mg PO TID - Continue home dose of gabapentin 600mg PO TID and cyclobenzaprine 5mg PO q8h prn pain - Increased breakthrough pain medication Dilaudid to 0.5mg q2h prn #Hypothyroidism - Continue home levothyroxine 25mg PO QD Health maintenance: Disposition: Med surg Diet: Renal diet GI prophylaxis: None indicated DVT prophylaxis: SCDs Code: Full code Case disclosed with Attending Dr. Bolden and my senior Dr. Mak PGY3. George Lee PGY1 Attending Provider Attestation/Addendum In short, the patient is a 33-year-old male with significant past medical history of paraplegia since age 13, ESRD on HD Mondays and Fridays who subsequently missed his Friday dialysis session prior to admission, recurrent nephrolithiasis, frequent UTIs, chronic indwelling Brody catheter, status post tracheostomy, status post ileostomy and hypertension who presented on 04/10 for progressive dyspnea which began approximately 5 days prior to admission. Patient subsequently admitted for sepsis secondary to left lung community-acquired pneumonia, and subsequent acute hypoxic respiratory failure. INTERVAL HX: 04/13: No acute events overnight, the patient was very somnolent this morning which is a reported change from previous days, mildly tachycardic and tachypneic at time of bedside visit. I/O 3150/3770 as of this afternoon. SpO2 100% on oxime mask, 8 L blood pressure was soft at 92/64 however did improve, presently 118/76 mL millimeters Hg. Significant labs including normal WBC, hemoglobin 9.4 which is stable, MCV 102, platelet count 135 also stable, ABG performed in the morning pH 7.26, pCO2 60, pO2 77 and bicarb 27, BMP demonstrating a sodium of 132, normal BUN, creatinine 3.0 in setting of ESRD. We did perform a chest x-ray today which demonstrates vascular congestion and significant left lung pneumonia, repeat EKG today demonstrating sinus tachycardia at a rate of 105. ASSESSMENT: #Sepsis secondary to community-acquired pneumonia #Acute hypoxic respiratory failure secondary to above #Primary respiratory acidosis with likely secondary NAG metabolic acidosis #Suspected obesity hypoventilation syndrome #Suspected MERVIN 1. Lasix 40 mg IV x 1 dose given for possible fluid overload 2. Will start the patient on BiPAP at night for likely obesity hypoventilation syndrome contributing to hypercapnia and subsequent respiratory acidosis. 3. Will transition to oral Levaquin 250mg qd (renal dosing) per infectious disease recommendations for pneumonia #Asymptomatic bacteriuria, urine culture demonstrating ESBL E. coli iso chronic indwelling brody catheter 1. Infectious disease consulted, recommends holding treatment if patient remains asymptomatic, stated no UTI #ESRD on HD 1. Nephrology consulted for routine hemodialysis Chronic Conditions: #Essential HTN #Paraplegia #CBP #hypothyroidism 1. Will continue home Allison 10 mg p.o. 3 times daily as well as gabapentin 600 mg p.o. 3 times daily and cyclobenzaprine 5 mg p.o. every 8 hours as needed for pain 2. Continue holding home amlodipine for soft BP, continue midodrine 10 mg p.o. 3 times daily as needed for hypotension ISO dialysis 3. Continue home levothyroxine 25 mg p.o. daily DISPO: Likely 2 to 3 days pending continue clinical improvement
[2024-04-14] VITALS (15 sets, daily range): BP systolic 95–117; BP diastolic 66–79; PULSE 77–124; RESP 12–23; TEMP 36.1–36.2; O2SAT 85–100
[2024-04-14] MEDS: HYDROmorphone INJ 2 MG/ML VIAL 0.5 MG IVP ×6 (01:13→22:00)
[2024-04-14 06:00] LABS: Basophils # (Auto) 0.1 Thou/mm3 (0.0-0.2); Basophils % (Auto) 1 % (0-2.5); Eosinophils # (Auto) 0.3 Thou/mm3 (0.0-0.5); Eosinophils % (Auto) 4 % (0-10); Hematocrit 31.1 % (41.0-53.0); Hemoglobin 9.7 g/dL (13.5-16.0); Immature Granulocytes % (Auto) 2 % (0-0); Immature Granulocytes Auto 0.11 Thou/mm3 (0.00-0.00); Lymphocytes # (Auto) 0.8 Thou/mm3 (1.0-4.8); Lymphocytes % (Auto) 11 % (10-50); Mean Corpuscular HGB Conc 31.2 g/dl (31.0-37.0); Mean Corpuscular Hemoglobin 32.7 pg (25.0-35.0); Mean Corpuscular Volume 105 fL (80-100); Monocytes % (Auto) 14 % (0-12); Neutrophils # (Auto) 4.8 Thou/mm3 (1.8-7.7); Neutrophils % (Auto) 69 % (37-80); Nucleated Red Blood Cell % 0 /100 WBC (0); Platelet Count 143 Thou/mm3 (140-440); RDW Standard Deviation 55.8 fL (35.1-43.9); Red Blood Count 2.97 Miln/mm3 (4.50-5.90)
[2024-04-14] MEDS: GABAPENTIN 300 MG CAPSULE 600 MG PO ×3 (06:11→21:35)
[2024-04-14] MEDS: LEVOTHYROXINE SODIUM 25 MCG TABLET PO (06:12)
[2024-04-14] MEDS: HYDROcodone/APAP 10/325 TAB PO ×2 (06:12→14:34)
[2024-04-14 06:49] LABS: Anion Gap 10 (7-16); BUN/Creatinine Ratio 5 Ratio (12-20); Blood Urea Nitrogen 21 mg/dL (9-23); Calcium 8.9 mg/dL (8.3-10.6); Carbon Dioxide 20.3 mMol/L (20.0-31.0); Chloride 100 mMol/L (98-107); Creatinine (Component) 3.9 mg/dL (0.6-1.3); Estimated Creatinine Clearance 30.7 mL/min (>60); Glucose 101 mg/dL (74-106); Osmolality,Calculated 263 (275-295); Potassium 4.5 mMol/L (3.4-5.1); Sodium 130 mMol/L (136-145); eGFR 20 See Note
[2024-04-14] MEDS: LEVOFLOXACIN 250 MG TABLET PO (09:17)
[2024-04-14] MEDS: FUROSEMIDE INJ 10 MG/ML 4ML VIAL 40 MG IVP (09:17)
--- NOTE | 2024-04-14 12:22 | PD.IDPROG ---
Subjective Subjective Interval history: afebrile on po rx. disposition per others Exam Vital Signs Temp Pulse Resp BP Pulse Ox O2 Del Method O2 Flow Rate 97.1 F 101 H 20 105/67 92 L High Flow Nasal Cannula 35 04/14/24 11:54 04/14/24 12:00 04/14/24 11:54 04/14/24 11:54 04/14/24 11:54 04/14/24 11:54 04/14/24 11:54 FiO2 30 04/14/24 11:54 Narrative Exam limited visit Objective - Internal Medicine Labs 04/14/24 04:52 04/14/24 04:52 Labs: Laboratory Results - last 24 hr 04/13/24 04/14/24 05:01 04:52 WBC 7.0 RBC 2.97 L Hgb 9.7 L Hct 31.1 L MCV 105 H MCH 32.7 MCHC 31.2 RDW Std Deviation 55.8 H Plt Count 143 Neut % (Auto) 69 Lymph % (Auto) 11 [place] % (Auto) 14 H Eos % (Auto) 4 Baso % (Auto) 1 Neut # (Auto) 4.8 Lymph # (Auto) 0.8 L [place] # (Auto) 1.0 H Eos # (Auto) 0.3 Baso # (Auto) 0.1 Immature Gran # (Auto) 0.11 H Absolute Nucleated RBC 0.00 Immature Gran % 2 H Nucleated RBC % 0 Sodium 130 L Potassium 4.5 D Chloride 100 Carbon Dioxide 20.3 Anion Gap 10 BUN 21 Creatinine 3.9 H D Estim Creat Clear Calc 30.7 L eGFR 20 L BUN/Creatinine Ratio 5 L Glucose 101 Calculated Osmolality 263 L Calcium 8.9 Coccidioides IgM Ab Negative ABG Interpretation ABG results: 04/10/24 04/13/24 15:05 11:54 ABG pH 7.26 L ABG pCO2 60 H ABG pO2 77 L ABG HCO3 27 H ABG O2 Saturation 97 ABG Base Excess -1 VBG pH 7.24 L VBG pCO2 58 H VBG pO2 30 VBG Base Excess -3 Assessment & Plan A&P Narrative ASB pneumonia, the real reason he is here paraplegia ckd 5 with minimal urine output allergy to penicillins noted. oral Levaquin for pneumonia. prior hiv and hep c neg ordered cocci for am home in am ok if you can f/u on the cocci urine is not UTI but ASB if you call it a uti, then you have to treat it with ertapenem 1 gm iv daily for 7d. will see again prn. macrobid and bactrim not recommended in ckd. Time Spent With Patient Time: Total time spent is greater than 50% in coordination of care (as documented) at patient's floor/unit and/or counseling patient:
[2024-04-14 12:49] LABS: Cocci Serology, IgG Negative (Negative)
--- NOTE | 2024-04-14 14:05 | ESPR_ITS ---
<Statement entered by Naomi Mascorro MD - 04/14/24 16:52> I discussed with and supervised the hospital internship physician who took care of this patient. I personally saw and examined the patient and discussed the assessment and plan with the entire medicine team, including my attending Dr. Bolden, I agree with most of the assessment and plan as documented below Naomi Mascorro M.D. PGY-2 Documentation for date of: 04/14/24 Subjective Subjective Interval history: Mr. Zoran Matson is a 33y/o male with a past medical history of paraplegia since age 13, ESRD on hemodialysis since 2019 (dialysis schedule Friday and Friday, missed his dialysis session day prior to admission 04/09/2024) seeing Dr. Jeff, recurrent nephrolithiasis, recurrent UTIs, chronic catheter usage, s/p tracheostomy, s/p ileostomy, and hypertension who presented on 04/10/2024 for progressively worsening dyspnea x5 days. Patient states that approximately 5 days ago, he began to experience shortness of breath and a pressure in his chest that made it more difficult to breath. He also complains of a productive cough with white-green sputum that has been worsening with time. Along with this, patient states that due to his paraplegia he can not feel below the nipple line, but has been experiencing an ambiguous discomfort in his penis that he associates with his previous UTIs. Patient had a recent admission to [facility] several weeks ago which he states was for pneumonia, and he had to undergo a tracheostomy at that time. He states that he was discharged with antibiotics, and although he does not remember their name, he took the full course as prescribed to him. At home, he uses 3-4L of O2 at baseline. In the ED, patient was found to be afebrile, mildly hypertensive at 139/92, slightly tachycardic at 108, tachypneic at 21, and initially spO2 89%. After albuterol administered in the ED, patient tony to 94% O2 on 5L nasal cannula, which further improved over time. WBC 9.9, Hgb 10.7, Na 130, K 5.3, BUN 24, Cr 5.7, glucose 96, Ca 9.6, Mg 1.8, AST/ALT within normal limits, troponins <0.002. Urinalysis taken positive for leukocyte esterase and bacteria, culture pending. Blood cultures taken and pending. EKG taken demonstrated sinus rhythm. CXR positive for left lung base pneumonia. CTA negative for pulmonary embolism, positive for significant pneumonia of the left lung base. Given patient's previous urine culture showing sensitivity to IV Cefepime, patient was started on IV Cefepime on this visit as empiric abx treatment while waiting for current sensitivities. Patient takes 10mg [place] TID at home for his chronic back pain, so was started on his home dose as pain management. Senior Quality Methods Specialist Dr. Haines was consulted for possible dialysis, and patient was admitted to med surg. 04/11: Overnight, patient had a rapid response called for tachycardia into the 130s. His other vitals were within normal limits and and he was in no acute distress at that time. Appeared dry, so he was given 1L normal saline. Tachycardia likely response to patient's pneumonia vs. hyperkalemia, although findings on EKG were only positive for sinus tachycardia. This morning, patient's tachycardia continuining into the 120s. WBC count elevated from 9.9 -> 11.9. Sodium 130, potassium tony 5.3 -> 6.0 with BUN/Cr relatively stable. Dialysis performed this morning, neprhology following, appreciate reccomendations. 04/12: Patient was seen and examined at bedside. No acute events overnight. Patient denies having any fever, dysuria, cough, chest pain. Able to sleep well overnight. Dr Pelayo was consulted who recommended to change antibiotic from IV cefepime to oral Levaquin for pneumonia. Also states that since patient remains asymptomatic UTI is not requiring treatment and would be considered asymptomatic bacteriuria. Vitals today significant for soft blood pressure 96/67, tachycardia 115. No longer requiring oxygen via nasal cannula. Adequately saturating on room air. WBC downtrending 8.5, hemoglobin 9.2, sodium downtrending 129, potassium 4.3, creatinine 3.5. Patient underwent dialysis session today with no fluid removal. Hyperkalemia is resolving. 04/13: No acute overnight events. Patient switched from IV Cefepime to IV meropenem per culture sensitivities. This morning on examination, patient somnolent and falling asleep while being asked questions. He had just received a dose of Dilaudid for pain management. Later in the day, patient more easily rousable and in no acute distress. CXR shows continuining significant left basilar lung pneumonia, ABG showed pH 7.26, pCO2 60, pO2 77, HCO3 27. Still requiring higher supplemental oxygen than his baseline, currently at spO2 99% on oxy mask 10L. Will transition to high-flow oxygen during day and BiPAP at night for improved oxygenation, and due to patient's somnolence during the day and reported apnic episodes at night per nurses. 04/14: No acute overnight events. Patient states that he refused using the BiPAP at night as he feels that it pushes oral secretions down into his airway and causes aspiration. Continued to use high-flow O2 overnight, and this morning significantly more alert than yesterday with markedly improved lung sounds on auscultation. Switched abx to Levaquin per ID recommendations. Blood cultures negative x2 after 48h, urine culture positive for E. coli, sputum gram stain negative, sputum culture pending. Exam Vital Signs Temp Pulse Resp BP Pulse Ox O2 Del Method O2 Flow Rate 97.1 F 101 H 20 105/67 92 L High Flow Nasal Cannula 35 04/14/24 11:54 04/14/24 12:00 04/14/24 11:54 04/14/24 11:54 04/14/24 11:54 04/14/24 11:54 04/14/24 11:54 FiO2 30 04/14/24 11:54 Narrative Exam Gen: Alert, oriented x3, responsive to questions, tired-appearing, in no acute distress HEENT: NCAT, PERRLA, EOMI, MMM, anicteric conjunctivae. CVS: normal S1 and S2. RRR. No M/R/G. Resp: Left lung base crackles resolved, bilateral expiratory wheezing auscultated but improved in severity since admission, normal respiratory rate, no accessory muscle usage, tracheostomy site closed and scarred over Abd: Ostomy site present, abdomen soft, non-tender, non-distended. BS+ in all 4 quadrants. MSK: Paraplegic and unable to move lower extremities Neuro: CN II-XII grossly intact. Strength 5/5 in BUE, no motorsensory function below nipple line Psych: appropriate mood and affect. Objective Labs 04/14/24 04:52 04/14/24 04:52 Labs: Laboratory Results - last 24 hr 04/13/24 04/14/24 05:01 04:52 WBC 7.0 RBC 2.97 L Hgb 9.7 L Hct 31.1 L MCV 105 H MCH 32.7 MCHC 31.2 RDW Std Deviation 55.8 H Plt Count 143 Neut % (Auto) 69 Lymph % (Auto) 11 [place] % (Auto) 14 H Eos % (Auto) 4 Baso % (Auto) 1 Neut # (Auto) 4.8 Lymph # (Auto) 0.8 L [place] # (Auto) 1.0 H Eos # (Auto) 0.3 Baso # (Auto) 0.1 Immature Gran # (Auto) 0.11 H Absolute Nucleated RBC 0.00 Immature Gran % 2 H Nucleated RBC % 0 Sodium 130 L Potassium 4.5 D Chloride 100 Carbon Dioxide 20.3 Anion Gap 10 BUN 21 Creatinine 3.9 H D Estim Creat Clear Calc 30.7 L eGFR 20 L BUN/Creatinine Ratio 5 L Glucose 101 Calculated Osmolality 263 L Calcium 8.9 Coccidioides IgG Ab Negative ABG Interpretation ABG results: 04/10/24 04/13/24 15:05 11:54 ABG pH 7.26 L ABG pCO2 60 H ABG pO2 77 L ABG HCO3 27 H ABG O2 Saturation 97 ABG Base Excess -1 VBG pH 7.24 L VBG pCO2 58 H VBG pO2 30 VBG Base Excess -3 Quality Measures Quality Measures VTE prophylaxis Assessment & Plan Assessment Current Active Medications: Generic Name Dose Route Start Last Admin Trade Name Princeq PRN Reason Stop Dose Admin Acetaminophen 650 mg 04/10/24 17:17 Acetaminophen 325 Mg Tablet PO 05/10/24 17:16 Q6H PRN PAIN SCALE 1-3 (mild Hydrocodone Bitart/Acetaminophen 1 tab 04/11/24 12:06 04/14/24 06:12 Hydrocodone/Apap 10/325 Tab PO 04/15/24 17:16 1 tab Q8H PRN Administration Pain Scale 4-10 Cyclobenzaprine HCl 5 mg 04/10/24 18:48 04/12/24 17:47 Cyclobenzaprine 5 Mg Tablet PO 05/10/24 18:47 5 mg TID PRN Administration MUSCLE SPASMS Furosemide 40 mg 04/14/24 09:00 04/14/24 09:17 Furosemide Inj 10 Mg/Ml 4ml Vial IVP 04/17/24 08:59 40 mg QDAY FOREIGN Administration Gabapentin 600 mg 04/10/24 22:00 04/14/24 13:42 Gabapentin 300 Mg Capsule PO 05/10/24 21:59 600 mg TID FOREIGN Administration Hydromorphone HCl 0.5 mg 04/11/24 12:01 04/14/24 12:42 Hydromorphone Inj 2 Mg/Ml Vial IVP 04/15/24 17:16 0.5 mg Q2H PRN Administration Breakthrough pain Albumin Human 25 gm in 100 mls @ 100 mls/min 04/11/24 08:52 Albuminar-25 Ivpb IV PRN PRN DIALYSIS Levofloxacin 250 mg 04/14/24 09:00 04/14/24 09:17 Levofloxacin 250 Mg Tablet PO 04/21/24 08:59 250 mg QDAY FOREIGN Administration Levothyroxine Sodium 25 mcg 04/12/24 06:00 04/14/24 06:12 Levothyroxine Sodium 25 Mcg Tablet PO 05/12/24 05:59 25 mcg ACBR FOREIGN Administration Midodrine 10 mg 04/10/24 18:48 Midodrine 5 Mg Tablet PO 05/10/24 21:59 TID PRN HYPOTENSION SBP <100 Ondansetron HCl 4 mg 04/10/24 17:17 Ondansetron Inj 2 Mg/Ml Inj 2 Ml IV 05/10/24 17:16 Q6H PRN NAUSEA OR VOMITING Protocol Plan Mr. Zoran Matson is a 33y/o male with a past medical history of paraplegia since age 13, ESRD on hemodialysis since 2019 (dialysis schedule Friday and Friday, missed his dialysis session day prior to admission 04/09/2024) seeing Dr. Jeff, recurrent nephrolithiasis, recurrent UTIs, chronic catheter usage, s/p tracheostomy, s/p ileostomy, and hypertension who presented on 04/10/2024 for progressively worsening dyspnea x5 days. Patient states that approximately 5 days ago, he began to experience shortness of breath and a pressure in his chest that made it more difficult to breath. He also complains of a productive cough with white-green sputum that has been worsening with time. Along with this, patient states that due to his paraplegia he can not feel below the nipple line, but has been experiencing an ambiguous discomfort in his penis that he associates with his previous UTIs. #Sepsis Secondary to Left-Sided Community-Acquired Pneumonia #Acute on Chronic Hypoxic Respiratory Failure As seen on both CXR and CTA on admission. Ruled out pulmonary embolism per CTA as source of patient's difficulty breathing and tachypneic status. Home O2 usage 4L at baseline - Supplemental O2 as needed - Wean O2 until patient's baseline as tolerated (baseline 4L O2 nasal cannula) - Stopped course of IV Cefepime (Course: 04/10-04/12) and transitioned to IV Levaquin - If breathing treatments needed, consider Levoalbuterol in place of Duonebs as smaller tachycardic effect with Levoalbuterol - May give one push of Lasix if needed for further fluid diuresis - Transitioning from high-flow O2 back to nasal cannula in attempt to wean back to baseline - Ordered VBG for today to evaluate respiratory status, f/u on results #ESRD on Hemodialysis (M/F dialysis) #Electrolyte Imbalance On arrival, Na 130, K 5.3, BUN 24, Cr 4.7. Patient had missed last day of dialysis due to feeling weak from pneumonia and UTI - Mild hyponatremia improving, continue to monitor - Senior Quality Methods Specialist Dr. Haines consulted, appreciate recommendations - Midodrine 10mg PO TID prn hypotension from dialysis - Last dialyzed in hospital 04/12/2024 #Asymptomatic Bacteriuria #Chronic Catheter - Urine culture positive for E. coli however patient denies any dysuria, discomfort - Monitor brody catheter and urine drainage daily - Infectious Disease Dr. Pelayo consulted - he does not recommend treatment as long as patient remains asymptomatic #Essential Hypertension Diagnosis present prior to arrival, initial blood pressure well-controlled at 110/76 - Hold amlodipine as patient's blood pressure is slightly soft - Midodrine 10mg PO TID prn hypotension from dialysis #Chronic Back Pain #Paraplegia - Continue home dose of [place] 10mg PO TID - Continue home dose of gabapentin 600mg PO TID and cyclobenzaprine 5mg PO q8h prn pain - Increased breakthrough pain medication Dilaudid to 0.5mg q2h prn #Hypothyroidism - Continue home levothyroxine 25mg PO QD Health maintenance: Disposition: Med surg Diet: Renal diet GI prophylaxis: None indicated DVT prophylaxis: SCDs Code: Full code Case disclosed with Attending Dr. Bolden and my senior Dr. Mascorro PGY2. George Lee PGY1 Attending Provider Attestation/Addendum In short, the patient is a 33-year-old male with significant past medical history of paraplegia since age 13, ESRD on HD Mondays and Fridays who subsequently missed his Friday dialysis session prior to admission, recurrent nephrolithiasis, frequent UTIs, chronic indwelling Brody catheter, status post tracheostomy, status post ileostomy and hypertension who presented on 04/10 for progressive dyspnea which began approximately 5 days prior to admission. Patient subsequently admitted for sepsis secondary to left lung community- acquired pneumonia, and subsequent acute hypoxic respiratory failure. INTERVAL HX: 04/13: No acute events overnight, the patient was very somnolent this morning which is a reported change from previous days, mildly tachycardic and tachypneic at time of bedside visit. I/O 3150/3770 as of this afternoon. SpO2 100% on oxime mask, 8 L blood pressure was soft at 92/64 however did improve, presently 118/76 mL millimeters Hg. Significant labs including normal WBC, hemoglobin 9.4 which is stable, MCV 102, platelet count 135 also stable, ABG performed in the morning pH 7.26, pCO2 60, pO2 77 and bicarb 27, BMP demonstrating a sodium of 132, normal BUN, creatinine 3.0 in setting of ESRD. We did perform a chest x- ray today which demonstrates vascular congestion and significant left lung pneumonia, repeat EKG today demonstrating sinus tachycardia at a rate of 105. 04/14: No acute events overnight, patient much more awake and alert today. I/O 1740/2270 still demonstrating sinus tachycardia on telemetry however blood pressure okay. This morning patient was on HFNC, 30/50 SpO2 92%. Patient stated he did decline BiPAP overnight it is very uncomfortable for him and it made him worse in the past. Significant labs include a stable hemoglobin at 9.7, sodium 130, BUN 21, creatinine 3.9. Sputum culture still pending, coccidiomycosis serologies negative, urine culture previously demonstrated ESBL E. coli however patient asymptomatic, blood cultures negative. ASSESSMENT: #Sepsis secondary to community-acquired pneumonia #Acute hypoxic respiratory failure secondary to above #Primary respiratory acidosis with likely secondary NAG metabolic acidosis?improved #Suspected obesity hypoventilation syndrome #Suspected MERVIN 1. Continue Lasix 40 mg IV for 2 additional days 2. Patient refused BiPAP, may attempt CPAP at night if can tolerate 3. Will continue Levaquin 250 mg p.o. daily, renally dosed for pneumonia #Asymptomatic bacteriuria, urine culture demonstrating ESBL E. coli iso chronic indwelling brody catheter 1. Will not treat at this time as patient is asymptomatic #ESRD on HD 1. Nephrology consulted for routine hemodialysis Chronic Conditions: #Essential HTN #Paraplegia #CBP #hypothyroidism 1. Will continue home [place] 10 mg p.o. 3 times daily as well as gabapentin 600 mg p.o. 3 times daily and cyclobenzaprine 5 mg p.o. every 8 hours as needed for pain 2. Continue holding home amlodipine for soft BP, especially since diuresing, continue midodrine 10 mg p.o. 3 times daily as needed for hypotension ISO dialysis 3. Continue home levothyroxine 25 mg p.o. daily DISPO: Possible discharge in 04/15 if the patient is further improved.
[2024-04-14 14:24] LABS: Base Excess, Venous 10 (-3-3); O2 Saturation, Venous 29 % (96-97); PCO2, Venous 54 mmHg (36-56); PO2, Venous 21 mmHg (15-58); pH, Venous 7.43 (7.33-7.66)
--- NOTE | 2024-04-14 22:29 | PC.NURSE ---
Dr zhu notified of pt HR jumping to the 140's not sustaining. All other vital signs stable, pt does not complain of any symptoms. Provider stated it is okay. No new orders at this time
[2024-04-15] VITALS (7 sets, daily range): BP systolic 104–116; BP diastolic 58–76; PULSE 90–114; RESP 18–27; TEMP 36.3–36.6; O2SAT 96–99; BMI 37.8
[2024-04-15] MEDS: HYDROcodone/APAP 10/325 TAB PO ×2 (00:16→09:21)
[2024-04-15] MEDS: HYDROmorphone INJ 2 MG/ML VIAL 0.5 MG IVP ×5 (01:13→13:21)
[2024-04-15] MEDS: CYCLObenzaPRINE 5 MG TABLET PO (01:54)
[2024-04-15] MEDS: GABAPENTIN 300 MG CAPSULE 600 MG PO ×2 (05:30→14:06)
[2024-04-15] MEDS: LEVOTHYROXINE SODIUM 25 MCG TABLET PO (05:30)
[2024-04-15 06:30] LABS: Basophils # (Auto) 0.1 Thou/mm3 (0.0-0.2); Basophils % (Auto) 1 % (0-2.5); Eosinophils # (Auto) 0.3 Thou/mm3 (0.0-0.5); Eosinophils % (Auto) 6 % (0-10); Hematocrit 32.1 % (41.0-53.0); Hemoglobin 10.3 g/dL (13.5-16.0); Immature Granulocytes % (Auto) 2 % (0-0); Immature Granulocytes Auto 0.11 Thou/mm3 (0.00-0.00); Lymphocytes % (Auto) 18 % (10-50); Mean Corpuscular HGB Conc 32.1 g/dl (31.0-37.0); Mean Corpuscular Hemoglobin 32.8 pg (25.0-35.0); Mean Corpuscular Volume 102 fL (80-100); Monocytes # (Auto) 0.7 Thou/mm3 (0.0-0.8); Monocytes % (Auto) 12 % (0-12); Neutrophils # (Auto) 3.4 Thou/mm3 (1.8-7.7); Neutrophils % (Auto) 60 % (37-80); Nucleated Red Blood Cell % 0 /100 WBC (0); Platelet Count 203 Thou/mm3 (140-440); RDW Standard Deviation 53.1 fL (35.1-43.9); Red Blood Count 3.14 Miln/mm3 (4.50-5.90); White Blood Count 5.5 Thou/mm3 (3.8-10.6)
[2024-04-15 06:44] LABS: Anion Gap 6 (7-16); BUN/Creatinine Ratio 7 Ratio (12-20); Blood Urea Nitrogen 27 mg/dL (9-23); Calcium 9.4 mg/dL (8.3-10.6); Carbon Dioxide 24.5 mMol/L (20.0-31.0); Chloride 99 mMol/L (98-107); Creatinine (Component) 4.1 mg/dL (0.6-1.3); Estimated Creatinine Clearance 29.2 mL/min (>60); Glucose 91 mg/dL (74-106); Osmolality,Calculated 264 (275-295); Potassium 4.8 mMol/L (3.4-5.1); Sodium 129 mMol/L (136-145); eGFR 19 See Note
[2024-04-15] MEDS: FUROSEMIDE INJ 10 MG/ML 4ML VIAL 40 MG IVP (08:55)
[2024-04-15] MEDS: LEVOFLOXACIN 250 MG TABLET PO (08:55)
--- NOTE | 2024-04-15 11:54 | ESDS_ITS ---
<Statement entered by Naomi Mascorro MD - 04/15/24 16:51> I discussed with and supervised the internal sales physician who took care of this patient. I personally saw and examined the patient and discussed the assessment and plan with the entire medicine team, including my attending , I agree with most of the assessment and plan as documented below Naomi Mascorro M.D. PGY-2 Planned Discharge Date 04/15/24 DS: Providers Provider Date of admission: 04/10/24 17:17 Primary care physician: Bryce Bunn MD Admitting Provider: Franco Muhammad MD Attending Provider on Admission: Joey Bolden DO Consults: 04/10/24 18:25 Consult to Nephrology Routine Comment: Consulting Provider: Kareem Haines 04/11/24 10:25 Consult to Infectious Diseases Routine Comment: Complicated UTI Consulting Provider: Zoran Pleayo 04/11/24 19:00 Referral Registered Dietitian Routine Comment: Referral Wound Care Routine Comment: Attending Provider on DC: Tyrone Key MD Discharging Provider: Tyrone Key MD DS: Diagnosis Problem List Completed Was Problem List Reviewed/Reconciled?: Yes Hospital Course Hospital Course Hospital course: 33-year-old male with past medical history of paraplegia since age of 13, ESRD on HD (M/F) presented to the ED on 04/10 after missing dialysis session and developing worsening dyspnea. In the ED, patient was found tachycardic, tachypneic and saturating at 89% oxygen. Chest x-ray was positive for left lung base pneumonia, CTA was negative for any pulmonary embolism but confirmed significant pneumonia in the left lung base. Patient was started on IV antibiotics admitted for management of pneumonia. Patient had rapid response called on the same night of admission for tachycardia; EKG showed sinus tachycardia without any concerning ST changes. Nephrology, Dr. Haines, was consulted for the patient's dialysis sessions which were completed in the hospital. Infectious disease, Dr Pelayo, was also consulted patient was initially on cefepime for the pneumonia; however, was switched over to oral Levaquin. Patient was also started on Lasix 40 mg IV for being volume overloaded secondary to both the acutely ill status and ESRD status. Patient's oxygenation requirements improved as he moved off high flow nasal cannula to nasal cannula and was satting 95-96. Patient will be discharged stable upon making improvement in WBC count and clinical symptoms with the following strict instructions. Please follow-up with your PCP within 1 week Take Lasix 40mg daily for an additional two days for volume overloaded status Take Levofloxacin 250 mg once a day for an additional two days for pneumonia Continue going to dialysis sessions and follow-up with your student teacher within 1-2 weeks If you develop new and/or worsening shortness of breath, chest pain or dizziness/headache - please come back to the ED immediately Hospital Diagnosis: #Sepsis Secondary to Left-Sided Community-Acquired Pneumonia, resolved #Acute on Chronic Hypoxic Respiratory Failure, resolved #ESRD on Hemodialysis (M/F dialysis) #Electrolyte Imbalance, resolved #Asymptomatic Bacteriuria #Chronic Catheter #Essential Hypertension #Chronic Back Pain #Paraplegia #Hypothyroidism Tyrone Key, PGY-1 Status at Discharge Overall status at discharge: patient is progressing back to baseline Time Spent with Patient Time attestation: Total time spent providing and/or coordinating discharge services: 45 minutes Time spent: Greater than 30 minutes Exam Vital Signs Temp Pulse Resp BP Pulse Ox O2 Del Method O2 Flow Rate 97.3 F 102 H 20 112/70 98 Oxy Mask 3 04/15/24 08:00 04/15/24 08:55 04/15/24 08:00 04/15/24 08:55 04/15/24 08:00 04/15/24 08:00 04/15/24 08:00 FiO2 97 04/15/24 08:00 Narrative Exam Gen: Awake, responsive to questions, appears stated age HEENT: NCAT, PERRLA, EOMI, MMM, anicteric conjunctivae. CVS: normal S1 and S2. RRR. No M/R/G. Resp: Left lung base crackles resolved, minimal wheezing noted, normal respiratory rate, no accessory muscle usage, tracheostomy site closed and scarred over Abd: Ostomy site present, abdomen soft, non-tender, non-distended. BS+ in all 4 quadrants. MSK: Paraplegic and unable to move lower extremities Neuro: Oriented x3, CN II-XII grossly intact. Strength 5/5 in BUE, no motorsensory function below nipple line Discharge Plan Plan Patient Disposition: HOME (Self Care) Prescriptions/Referrals Prescriptions/Med Rec: New levofloxacin 250 mg Tablet 250 mg PO QDAY 2 Days Qty: 2 0RF furosemide 40 mg tablet 40 mg PO QDAY Qty: 2 0RF Continued sevelamer carbonate 800 mg Tablet 2,400 mg PO TIDWMEAL magnesium oxide 400 mg magnesium Capsule 400 mg PO BID levothyroxine 25 mcg Tablet 25 mcg PO QDAY cholestyramine (with sugar) 4 gram Powder In Packet 1 ea PO BID Lokelma 10 gram Powder In Packet 10 g PO QDAY Rx Instructions: takes at 0300 am gabapentin 600 mg Tablet 600 mg PO TID omeprazole 40 mg capsule,delayed release(DR/EC) 40 mg PO QDAY Patient Comments: TAKE ONE CAPSULE BY MOUTH EVERY DAY midodrine 10 mg tablet 10 mg PO TID PRN (Reason: Hypotension) cinacalcet 30 mg tablet 30 mg PO QDAY Patient Comments: TAKE ONE TABLET BY MOUTH EVERY DAY hydrocodone-acetaminophen 10-325 mg tablet 1 tab PO Q6H PRN (Reason: Pain (Scale Score 7-10)) sodium bicarbonate 650 mg tablet 650 mg PO BID Patient Comments: TAKE ONE TABLET BY MOUTH TWICE DAILY cyclobenzaprine 5 mg tablet 5 mg PO Q8HR PRN (Reason: Muscle Spasm) Patient Comments: TAKE ONE TABLET BY MOUTH EVERY 8 HOURS NEEDED FOR muscle SPASMS amlodipine 5 mg Tablet 5 mg PO QDAY 30 Days Qty: 30 1RF Mucinex DM 30-600 mg Tablet Extended Release 12 Hr 1 tab PO BID PRN (Reason: Cough) Qty: 10 0RF Referrals: Bryce Bunn MD [Primary Care Provider] - Patient/Caregiver Discharge Instructions Other Discharge Activity Instructions:: Please follow-up with your PCP within 1 week Take Lasix 40mg daily for an additional two days for volume overloaded status Take Levofloxacin 250 mg once a day for an additional two days for pneumonia Continue going to dialysis sessions and follow-up with your student teacher within 1-2 weeks If you develop new and/or worsening shortness of breath, chest pain or dizziness/headache - please come back to the ED immediately Education Materials: What Is Pneumonia?, Treating Pneumonia, Coping with Kidney Failure Print Language: Cambodian Stand Alone Forms: Mellissa Award Info., Patient Portal Info Letter Discharge Order Discharge Orders: Discharge (Routine); Ordered 04/15/24 Ordered By: Tyrone Key Quality Discharge Quality Measures VTE prophylaxis Attestestation MD Attestation I have discussed and was present for the essential components of the discharge history, physical examination, diagnosis, and discharge treatment plan with the resident. I agree with the patient's discharge care as documented by the resident and amended herein by me. Moises Bolden DO. The patient understood all discharge instructions, all questions were answered satisfactorily. The patient was instructed to return to the Emergency Department is symptoms worsened or persisted. Patient was stable, tolerating p.o. intake, afebrile at time of discharge. I believe the patient will need a sleep study on an outpatient basis at some point as I highly suspect MERVIN and obesity hypoventilation syndrome. Patient will likely need CPAP, optimally BiPAP but he would not tolerate. The patient's sputum culture grew yeast which is likely from colonization. Patient stated he felt much better since his presentation and was eager to get out of the hospital. Although this document has been carefully reviewed, there may still be some phonetic and other typographical errors. These errors are purely grammatical due to imperfections in the software program and should not be construed in any way to compromise the substance of the patient's medical care during this visit.
--- NOTE | 2024-04-15 12:30 | PC.NURSE ---
Pt made aware of discharge orders called family is awaitng for transportation
--- NOTE | 2024-04-15 14:40 | PC.NURSE ---
After pt was discharged pt was complaining of a headache he said because he must have a kink in his brody. i obtained vitals BP130/82 HR91 to which he responed by saying his headache was gone and was feeling back to normal and there was no need to call the doctor. He stated that he wished to change his brody bag and was provided with one, I offered to change it for him, he said he changes it at home alone and would like to do so now.
== END 2024-04-15 15:30 | disposition home or self-care (01) | DRG 871 ==
LOC: SERX 14:54 → SERHOLD 18:17 → S3NX 21:50
PROVIDERS: Internal Medicine Infectious Disease; Student in an Organized Health Care Education/Training Program; Admitting Provider Student in an Organized Health Care Education/Training Program; Emergency Provider Emergency Medicine; PCP Family Medicine; Visit Provider Student in an Organized Health Care Education/Training Program
DX: A41.51 Sepsis due to Escherichia coli [E. coli] (principal); J15.9 Unspecified bacterial pneumonia; J96.21 Acute and chronic respiratory failure with hypoxia; N18.6 End stage renal disease; G82.20 Paraplegia, unspecified; I12.0 Hypertensive chronic kidney disease with stage 5 chronic kidney disease or end stage renal disease; N39.0 Urinary tract infection, site not specified; E87.1 Hypo-osmolality and hyponatremia; E87.4 Mixed disorder of acid-base balance; E66.2 Morbid (severe) obesity with alveolar hypoventilation; G89.29 Other chronic pain; M54.9 Dorsalgia, unspecified; E87.5 Hyperkalemia; E03.9 Hypothyroidism, unspecified; E87.70 Fluid overload, unspecified; I95.89 Other hypotension; Z87.442 Personal history of urinary calculi; Z93.2 Ileostomy status; F17.210 Nicotine dependence, cigarettes, uncomplicated; Z68.37 Body mass index [BMI] 37.0-37.9, adult; Z99.2 Dependence on renal dialysis; Z87.440 Personal history of urinary (tract) infections; Z93.1 Gastrostomy status; Z96.0 Presence of urogenital implants; Z88.0 Allergy status to penicillin; Z88.8 Allergy status to other drugs, medicaments and biological substances; Z79.899 Other long term (current) drug therapy; Z79.890 Hormone replacement therapy
CPT/HCPCS: 36415; 36600; 71045; 71275; 80048; 80053; 81001; 82803; 83735; 83880; 84100; 84439; 84443; 84484; 85025; 85610; 86331; 86635; 87040; 87077; 87081; 87086; 87106; 87186; 87205; 87400; 87502; 87811; 93005; 94640; 96361; 96365; 96375; 96376; 99291; A4649; J0692; J1940; J2185; J3490; J7030; J7050; Q5105; Q9967; A9270

== ENCOUNTER 2024-05-13 23:54 | Inpatient (IN) | payer MEDICARE, MEDICAID, SELFPAY ==
[2024-05-13 23:56] VITALS: BP 158/120; PULSE 107; PULSE 82; RESP 20; TEMP 36.7; O2SAT 100; O2SAT 92; BMI 27.5
[2024-05-14] VITALS (29 sets, daily range): BP systolic 119–230; BP diastolic 85–138; PULSE 75–123; RESP 16–24; TEMP 36.2–36.7; O2SAT 94–100; BMI 32.3
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
--- NOTE | 2024-05-14 00:18 | XR_ITS ---
Examination: CTA chest, with intravenous contrast. CTA abdomen, with intravenous contrast. CTA pelvis, with intravenous contrast. 2-D sagittal and coronal reconstructions. 3-D reconstructions. Date and time of exam: May 14, 2024 0337 hours INDICATIONS: Shortness of breath hypoxia chest pain and tachycardia abdominal pain beginning 2 days ago CTDI vol (mgy) 18.6 DLP (MGycm) 1295 Technique: Multiple CTA images, 2.0 mm slice thickness, obtained chest, abdomen, pelvis, with the high-resolution 64 slice scanner. 100 cc Isovue-370 is administered intravenously. Sagittal and coronal 2-D reconstructions are obtained. 3-D reconstructions, angiographic images are obtained. 3-D postprocessing, including vascular maximum intensity projections. Low dose protocols were performed. One or more of the following dose reduction techniques were used; automated exposure control, adjustment of the mA and/or KV according to patient size, use of iterative reconstruction technique. Findings: No thoracic aortic aneurysmal dilatation Pulmonary artery segments are not enlarged No pulmonary artery emboli Bilateral hilar lymphadenopathy Moderate vascular congestion Bibasilar pneumonia Small complex bilateral pleural effusions Liver irregular in contour no focal liver lesions No splenic mass Distended gallbladder Small gallstones Possible thickening of the gallbladder wall Gastrostomy tube satisfactory position Multiple bilateral renal calculi, no hydronephrosis or ureteral calculi Perinephric stranding IVC filter Aorta not enlarged No bowel obstruction No diverticulitis Urinary bladder contracted around a Richardson catheter with marked thickening of the urinary bladder wall Prominent glandular tissue in the retroareolar regions both breasts Abscess with air densities in fluid in the soft tissue posterior and below the coccyx, axial image 319, measuring 8 x 2.4 by at least 5 cm IMPRESSION: Bilateral hilar lymphadenopathy Moderate vascular congestion Significant bibasilar pneumonia Cirrhosis Recommend hepatobiliary sonography to exclude acute calculus cholecystitis Multiple bilateral renal calculi including 6 mm calculus in the left renal pelvis but no hydronephrosis or ureteral calculi Marked thickening of the urinary bladder wall, consider cystitis Subcutaneous abscess in the soft tissue posterior and below the coccyx, 8 x 2.4 x 5 cm, recommend ultrasound soft tissue follow-up in this area at the level of the intergluteal folds
--- NOTE | 2024-05-14 00:19 | EKG_ITS ---
[facility] Test Date: 2024-05-14 Pat Name: KENNEDY LEDEZMA Department: Room: - Gender: Male [employer]: : [id number] Requested By: Flo Seymour Order Number: [id number] Reading MD: Flo Seymour Measurements Intervals [place] Rate: 93 P: 66 OH: 198 QRS: 20 QRSD: 98 T: 55 QT: 335 QTc: 417 Interpretive Statements SINUS RHYTHM LOW QRS VOLTAGE [QRS DEFLECTION < 0.5/1.0 mV IN LIMB/CHEST LEADS] PATTERN CONSISTENT WITH PULMONARY DISEASE Compared to ECG 04/13/2024 10:42:25 Low QRS voltage now present Atrial flutter no longer present /store/S0/[id number].pdf
[2024-05-14] MEDS: Magnesium Sulfate 2 GM Ivpb 2 GM/50 ML BAG IV (00:36)
[2024-05-14] MEDS: MORPHINE SULF INJ 10 MG/ML VIAL 4 MG IVP (00:36)
[2024-05-14] MEDS: MethylPREDNISolone SOD SUCC 62.5 MG/ML 2ML VIAL 125 MG IVP (00:36)
[2024-05-14] MEDS: DiphenhydrAMINE 25 MG CAPSULE 50 MG PO (00:48)
[2024-05-14 00:50] LABS: Lactate (Lactic Acid) 1.8 mMol/L (0.4-2.0)
[2024-05-14 00:56] LABS: Basophils # (Auto) 0.1 Thou/mm3 (0.0-0.2); Basophils % (Auto) 1 % (0-2.5); Eosinophils # (Auto) 0.2 Thou/mm3 (0.0-0.5); Eosinophils % (Auto) 2 % (0-10); Hematocrit 35.2 % (41.0-53.0); Hemoglobin 11.1 g/dL (13.5-16.0); Immature Granulocytes % (Auto) 1 % (0-0); Immature Granulocytes Auto 0.06 Thou/mm3 (0.00-0.00); Lymphocytes # (Auto) 0.9 Thou/mm3 (1.0-4.8); Lymphocytes % (Auto) 12 % (10-50); Mean Corpuscular HGB Conc 31.5 g/dl (31.0-37.0); Mean Corpuscular Hemoglobin 32.2 pg (25.0-35.0); Mean Corpuscular Volume 102 fL (80-100); Monocytes # (Auto) 0.6 Thou/mm3 (0.0-0.8); Monocytes % (Auto) 8 % (0-12); Neutrophils # (Auto) 5.7 Thou/mm3 (1.8-7.7); Neutrophils % (Auto) 77 % (37-80); Nucleated Red Blood Cell % 0 /100 WBC (0); Platelet Count 186 Thou/mm3 (140-440); RDW Standard Deviation 51.1 fL (35.1-43.9); Red Blood Count 3.45 Miln/mm3 (4.50-5.90); White Blood Count 7.4 Thou/mm3 (3.8-10.6)
[2024-05-14 01:01] LABS: Sed Rate (ESR) 62 mm/hr (0-15)
[2024-05-14 01:10] LABS: D-Dimer 867 ng/mL (<600)
[2024-05-14 01:17] LABS: Collection Type, Urine Clean Catch
[2024-05-14 01:18] LABS: B-Type Natriuretic Peptide 247 pg/mL (0-100)
[2024-05-14] MEDS: KETOROLAC INJ 30 MG/ML VIAL IVP (01:29)
[2024-05-14] MEDS: ALBUTEROL/IPRATROPIUM (Duoneb) RT SOL 3 ML NEBU 9 ML INH (01:30)
[2024-05-14] MEDS: HYDROmorphone INJ 2 MG/ML VIAL 1 MG IVP ×4 (01:30→22:22)
[2024-05-14 01:45] LABS: Bacteria,Urine 1+; Bilirubin,Urine Negative (Negative); Blood,Urine 2+ (Negative); Clarity,Urine Turbid (Clear/Hazy); Color,Urine Lt-Yellow (Lt Yel-Yel); Glucose, Urine Negative (Negative); Ketones,Urine Negative (Negative); Leukocyte Esterase,Urine Positive (Negative); Nitrite,Urine Positive (Negative); Protein,Urine 2+ (Neg - Trace); RBC,Urine 21 /hpf (0-3); Specific Gravity,Urine 1.007 (1.001-1.035); Squamous Epithelial Cell,Urine < 1 /hpf (0-5); Urobilinogen,Urine Negative mg/dL (0.0-1.0); WBC,Urine 182 /hpf (0-5)
[2024-05-14 01:46] LABS: Base Excess 1 (-3-3); HCO3 29 mEq/L (20-26); Inspired Oxygen, FIO2 21 %; O2 Saturation 99 % (91-98); PCO2 59 mmHg (32.0-48.0); PO2 97 mmHg (83-108)
[2024-05-14 01:47] LABS: Allen Test Performed/OK; Puncture Site Left Brachial
[2024-05-14 01:47] LABS: Culture Indicated,Urine Yes
[2024-05-14 01:48] LABS: Respiratory Syncytial Virus Ag Negative (Negative)
[2024-05-14 03:03] LABS: Alanine Aminotransferase < 7 U/L (10-49); Albumin, Serum 4.1 gm/dL (3.5-5.0); Albumin/Globulin Ratio 1.5 (1.2-2.2); Alkaline Phosphatase 196 U/L (46-116); Anion Gap 6 (7-16); Aspartate Amino Transferase < 10 U/L (0-34); BUN/Creatinine Ratio 6 Ratio (12-20); Bilirubin,Total < 0.2 mg/dL (0.3-1.2); Blood Urea Nitrogen 24 mg/dL (9-23); C-Reactive Protein 2.8 mg/dL (0.0-0.9); Calcium 9.1 mg/dL (8.3-10.6); Calcium (Corrected) 9.1 mg/dL (8.5-10.1); Carbon Dioxide 28.1 mMol/L (20.0-31.0); Chloride 97 mMol/L (98-107); Creatinine (Component) 4.1 mg/dL (0.6-1.3); Estimated Creatinine Clearance 30.1 mL/min (>60); Globulin 2.8 gm/dL (2.3-3.5); Glucose 121 mg/dL (74-106); Magnesium 1.8 mg/dL (1.6-2.6); Osmolality,Calculated 267 (275-295); Potassium 4.1 mMol/L (3.4-5.1); Procalcitonin 0.23 ng/ml (0.0-0.49); Sodium 131 mMol/L (136-145); Thyroid Stimulating Hormone 3.17 uIU/mL (0.55-4.78); Total Protein 6.9 gm/dL (5.7-8.2); Troponin I < 0.020 ng/mL (0.0-0.045); eGFR 19 See Note
--- NOTE | 2024-05-14 05:27 | PRELIM_ITS ---
CT angiogram of the chest, abdomen and pelvis with intravenous contrast (axial sections with sagittal and coronal reformats) May 14, 2024 at 0337 hoursClinical History: Shortness of breath, hypoxia , tachycardia, abdominal pain.Comparison: None available at the time of this report.Findings:The thor acic aorta demonstrates mild atheromatous calcification without evidence of dissection or aneurysm. T he origins of the right brachiocephalic, left common carotid and left subclavian arteries are patent. The abdominal aorta demonstrates mild atheromatous calcification without evidence of dissection or an eurysm. The celiac, superior mesenteric, inferior mesenteric and bilateral renal arteries are patent to the extent visualized. The common iliac, external iliac and internal iliac arteries are patent allison aterally.There is no filling defect within the pulmonary artery divisions to suggest pulmonary thromb oembolism.Mediastinal lymphadenopathy.There is no pericardial effusion.No pneumothorax.Small complex bilateral pleural effusions.Mild bilateral pleural thickening.Consolidation in bilateral lower lobes. The spleen, pancreas, and adrenals are unremarkable.Nonobstructing bilateral kidney stones. Cystic ar eas in the right kidney, limited evaluation.Left renal pelvis stone measuring 0.8 cm.Distended gallbl adder associated with wall thickening. Gallstones.Irregular liver margins.No evidence of bowel obstru ction. No evidence of appendicitis. There is no significant mesenteric or retroperitoneal adenopathy. Richardson catheter in place, the urinary bladder is nondistended, limited evaluation, air within the urin oleg bladder, thickening of the urine bladder wall. There is no free fluid, free air or abscess. The o sseous structures are unremarkable.Bilateral gynecomastia.Gastric PEG tube in place.IVC filter in eleazar ce.Right lower quadrant ostomy.Skin thickening at the level of the coccyx. No collections.Impression: 1. No evidence of aortic dissection or aneurysm.2. No evidence of pulmonary thromboembolism.3. Bilate ral lower lobes consolidation, suspicious for pneumonia.4. Complex bilateral pleural effusions associ ated with pleural thickening, correlation with fluid sampling should be considered.5. Gallstones, gal lbladder wall thickening, and distended gallbladder, suspicious for acute cholecystitis.6. Bilateral gynecomastia. Please, correlate clinically.7. Probable cystitis.8. Mediastinal lymphadenopathy of unc ertain etiology.9. Cirrhosis.10. Left renal pelvis stone.11. Nonobstructing bilateral nephrolithiasis .12. Cystic areas in the right kidney, limited evaluation, consider further evaluation for characteri zation.13. Possible decubitus wound at the level of the coccyx. Please, correlate with direct visuali zation. Report Electronically Signed By: Austin Olson 05/14/2024 5:26:54 AM [EST]
[2024-05-14] MEDS: AZITHROMYCIN INJ 500 MG in SODIUM CHLORIDE 0.9% 250 ML 250 ML 250 MG IV (06:05)
--- NOTE | 2024-05-14 06:30 | ESHP_ITS ---
<Statement entered by Tunde Fuller MD - 05/14/24 08:47> I Tunde Fuller MD reviewed the note and agree with the resident's assessment & plan with exceptions as below. I have personally reviewed labs, imaging, home meds/prior records, examined the patient, formulated and discussed management plan with the IM team. Documentation for date of: 05/14/24 HPI History of Present Illness History of present illness: The patient is a 33-year-old male with a past medical history of paraplegia, hypertension, ESRD on HD (M/F), recurrent nephrolithiasis and UTIs, chronic after, status post tracheostomy ileostomy presenting from home to the ED on 05/14/2024 with dyspnea and cough that has progressively worsened for about 2 weeks. Per the patient, he feels like he has had the symptoms for the past 2 months and is being admitted about 3 times both in this facility as well as in [facility] for pneumonia. He does admit that he got worse in the last 2 weeks, associated with productive cough, with whitish sputum, however denied chest pain or palpitations and subjective fevers or chills. Patient denies any sick contacts and at baseline is on 3 L of oxygen which he uses at night but noticed that his symptoms worsen, he was saturating lower in the 90s. Last admission here was about a month ago and he was managed for left lung base pneumonia. ED course: In the ED, patient was afebrile, slightly tachycardic with saturations in the 96%. CBC-WBC 7.4 Hgb 11.1 PLT 186 ESR 62 ABG 7.3 with pCO2 59 NA 130 1K4.1 CL 97 BUN 24 CR 4.1 glucose 121 ALP 196 CRP 2.8 BNP 247. UA showed turbid urine with 2+ protein, 2+ blood, 182 WBCs and 1+ bacteria. Bedside Covid, Influenza A&B and RSV negative. Preliminary read of CTA reviewed bilateral lower lobes consolidation with suspicion for pneumonia and complex bilateral pleural effusions with pleural thickening. Review of Systems Review of Systems Narrative Review of Systems: GENERAL: Denies fevers/chills or diaphoresis. HEENT: Denies headache or visual/hearing changes. Denies nasal discharge. NEURO: Denies unusual weakness or difficulty speaking. CARDIO: Denies chest pain or palpitations. PULM: Admits shortness of breath and cough GI: Denies abdominal pain, N/V/C/D/reflux/gas, bright red blood per rectum or melena. Reports having BMs. URO: Denies burning/itching/pain/urinary changes. MSK/EXT/SKIN: Denies joint/skeletal/muscle pain, issues/changes in upper or lower extremities, itchiness, or superficial pain. PSYCH: Cooperative, pleasant mood & affect. 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 Eyes open, symmetrical, & clear CARDIO: No chest pain on palpation. Heart RRR, no obvious murmurs PULM: No noted coughing/dyspnea. Coarse lung sounds on auscultation with mild crackles bilaterally. Oy mask on with 3.5L of O2 GI: Abdomen soft, nondistended, no pain on palpation. 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 Richardson catheter in-situ SKIN/MSK/EXT: Bilateral lower extremities atrophied from paraplegia. Right arm swollen but painless, AV fistula noted Results: Labs 05/14/24 00:45 05/14/24 00:45 Labs: Short CBC 05/14/24 Range/Units 00:45 WBC 7.4 (3.8-10.6) Thou/mm3 Hgb 11.1 L (13.5-16.0) g/dL Hct 35.2 L (41.0-53.0) % Plt Count 186 (140-440) Thou/mm3 BMP 05/14/24 00:45 Sodium 131 L Potassium 4.1 Chloride 97 L Carbon Dioxide 28.1 BUN 24 H Creatinine 4.1 H* Glucose 121 H Calcium 9.1 Cardiac Enzymes 05/14/24 Range/Units 00:45 Troponin I < 0.020 (0.0-0.045) ng/mL Liver Function 05/14/24 Range/Units 00:45 Total Bilirubin < 0.2 L (0.3-1.2) mg/dL AST < 10 (0-34) U/L ALT < 7 L (10-49) U/L Alkaline Phosphatase 196 H (46-116) U/L Albumin 4.1 (3.5-5.0) gm/dL Urine 05/14/24 Range/Units 00:53 Urine Color Lt-Yellow (Lt Yel-Yel) Urine Clarity Turbid A (Clear/Hazy) Urine pH 7.0 (5.0-7.0) Ur Specific [place] 1.007 (1.001-1.035) Urine Protein 2+ A (Neg - Trace) Urine Glucose (UA) Negative (Negative) ABG Interpretation ABG results: 05/14/24 01:43 ABG pH 7.30 L ABG pCO2 59 H ABG pO2 97 ABG HCO3 29 H ABG O2 Saturation 99 H ABG Base Excess 1 Quality Measures Quality Measures none Medications Home Medications and Allergies Home Medications ?Medication ?Instructions ?Recorded ?Confirmed ?Type gabapentin 600 mg tablet 600 mg PO TID 03/29/19 04/11/24 History cholestyramine (with sugar) 4 gram 1 ea PO BID 08/24/20 04/14/24 History powder for susp in a packet levothyroxine 25 mcg tablet 25 mcg PO QDAY 08/24/20 04/11/24 History magnesium oxide 400 mg PO BID 08/24/20 04/14/24 History sevelamer carbonate 800 mg tablet 2,400 mg PO TIDWMEAL 08/24/20 04/11/24 History sodium zirconium cyclosilicate 10 10 g PO QDAY 08/24/20 04/11/24 History gram oral powder packet (Lokelma) cinacalcet 30 mg tablet 30 mg PO QDAY 07/10/22 04/14/24 History midodrine 10 mg tablet 10 mg PO TID PRN Hypotension 07/10/22 04/14/24 History omeprazole 40 mg capsule,delayed 40 mg PO QDAY 07/10/22 04/14/24 History release hydrocodone 10 mg-acetaminophen 1 tab PO Q6H PRN Pain (Scale Score 12/26/22 04/11/24 History 325 mg tablet 7-10) sodium bicarbonate 650 mg tablet 650 mg PO BID 12/26/22 04/14/24 History cyclobenzaprine 5 mg tablet 5 mg PO Q8HR PRN Muscle Spasm 01/19/24 04/11/24 History Allergies Allergy/AdvReac Type Severity Reaction Status Date / Time piperacillin [From Zosyn] Allergy Severe Anaphylaxis Verified 01/18/24 12:28 tazobactam [From Zosyn] Allergy Severe Anaphylaxis Verified 01/18/24 12:28 LIZY Inhibitors Allergy Verified 01/18/24 12:28 Penicillins Allergy Anaphylaxis Verified 01/18/24 12:28 Visit Medications Acetaminophen (Acetaminophen 325 Mg Tablet) 650 mg PO Q6H PRN PRN Reason: Pain 1-3 or Fever >100.3 Stop: 06/13/24 06:09 Hydrocodone Bitart/Acetaminophen (Hydrocodone/Apap 5/325 Tablet) 1 tab PO Q4HR PRN PRN Reason: PAIN SCALE 4-10(Mod-Sev Stop: 05/19/24 06:09 Albuterol/Ipratropium (Albuterol/Ipratropium (Duoneb) Rt [place] 3 Ml Nebu) 3 ml INH Q6HRRT PRN PRN Reason: SOB or wheeze Stop: 06/13/24 06:59 Cyclobenzaprine HCl (Cyclobenzaprine 5 Mg Tablet) 5 mg PO Q8HR PRN PRN Reason: Muscle spasm Stop: 06/13/24 06:29 Heparin Sodium (Porcine) (Heparin Sod Inj 5000 Unit/Ml Vial) 5,000 unit SC Q12HR FOREIGN Stop: 05/28/24 08:59 Azithromycin 500 mg/ Sodium (Chloride) 250 mls @ 250 mls/hr IV X1 ONE Stop: 05/14/24 06:36 Last Admin: 05/14/24 06:05 Dose: 250 mls/hr Ondansetron HCl (Ondansetron Inj 2 Mg/Ml Inj 2 Ml) 4 mg IV Q6HR PRN; Protocol PRN Reason: NAUSEA OR VOMITING Stop: 06/13/24 06:09 Promethazine HCl/Dextromethorphan (Promethazine/Dm Syrup 5 Ml Dose) 5 ml PO Q6HR PRN; Protocol PRN Reason: COUGH Stop: 06/13/24 06:14 Discontinued Medications Albuterol/Ipratropium (Albuterol/Ipratropium (Duoneb) Rt [place] 3 Ml Nebu) 9 ml INH X1 ONE Stop: 05/14/24 00:18 Last Admin: 05/14/24 01:30 Dose: 9 ml Diphenhydramine HCl (Diphenhydramine 25 Mg Capsule) 50 mg PO X1 ONE Stop: 05/14/24 00:41 Last Admin: 05/14/24 00:48 Dose: 50 mg Hydromorphone HCl (Hydromorphone Inj 2 Mg/Ml Vial) 1 mg IVP X1 ONE Stop: 05/14/24 01:15 Last Admin: 05/14/24 01:30 Dose: 1 mg Hydromorphone HCl (Hydromorphone Inj 2 Mg/Ml Vial) 1 mg IVP X1 ONE Stop: 05/14/24 05:19 Last Admin: 05/14/24 05:57 Dose: 1 mg Magnesium Sulfate (Magnesium Sulfate Ivpb) 2 gm in 50 mls @ 25 mls/hr IV X1 ONE Stop: 05/14/24 02:16 Last Infusion: 05/14/24 03:07 Dose: Infused Ceftriaxone Sodium 1,000 mg/ (Sodium Chloride) 50 mls @ 100 mls/hr IV X1 ONE Stop: 05/14/24 06:06 Last Admin: 05/14/24 06:07 Dose: Not Given Ketorolac Tromethamine (Ketorolac Inj 30 Mg/Ml Vial) 30 mg IVP X1 ONE Stop: 05/14/24 01:15 Last Admin: 05/14/24 01:29 Dose: 30 mg Methylprednisolone Sodium Succinate (Methylprednisolone Sod Succ 62.5 Mg/Ml 2ml Vial) 125 mg IVP X1 ONE Stop: 05/14/24 00:18 Last Admin: 05/14/24 00:36 Dose: 125 mg Morphine Sulfate (Morphine Sulf Inj 10 Mg/Ml Vial) 4 mg IVP X1 ONE Stop: 05/14/24 00:18 Last Admin: 05/14/24 00:36 Dose: 4 mg Morphine Sulfate (Morphine Sulf Inj 10 Mg/Ml Vial) 6 mg IVP X1 ONE Stop: 05/14/24 05:16 Sodium Chloride (Sodium Chloride Rt 10% 15 Ml Nebu) 5 ml INH X1 ONE Stop: 05/14/24 06:11 Assessment & Plan Assessment Summary: The patient is a 33-year-old male with a past medical history of paraplegia, hypertension, ESRD on HD (M/F), recurrent nephrolithiasis and UTIs, chronic after, status post tracheostomy ileostomy presenting from home to the ED on 05/14/2024 with dyspnea and cough that has progressively worsened for about 2 weeks. #Acute on chronic hypoxic respiratory failure #Bibasilar pneumonia #Complex bilateral pleural effusions The patient reports that he has had his symptoms-shortness of breath and cough for about 3 months and he has been in and out of the hospital. However this worsened episode is been present for about 2 weeks, associated with a bothersome productive cough with white sputum, however no hemoptysis. At home he is on 3 L of oxygen at night, but noted that her pulse oximeter he was saturating lower than his baseline. He denies fever, chills, chest pain or palpitation. In admission, labs are significant for elevated ESR and CRP. Preliminary read of CTA reviewed bilateral lower lobes consolidation with suspicion for pneumonia and complex bilateral pleural effusions with pleural thickening Plan: -Admit to med telemetry -IV levofloxacin renally dosed (750mg x1, then 500mg day) plus azithromycin -Blood and sputum culture -Breathing treatments as needed -Oxygen as needed #Asymptomatic bacteriuria #Chronic indwelling catheter #Hx of ESBL UTI The patient has a chronic history of recurrent nephrolithiasis, has a chronic catheter and recurrent UTIs. Patient usually has no symptoms when he has UTI unknown last admission urine cultures on positive for ESBL UTI UA shows 2+ blood, 21 RBCs and 182 WBCs with positive esterase and 1+ bacteria Plan: -IV levofloxacin (allergic to Zosyn)- renally dosed (750mg x1, then 500mg day) -Urine culture #Hx of ESRD on HD(M/F) The patient has a history of ESRD and is being followed by [facility] Dr Jeff. His regular sessions are Friday and Friday but he had his most recent session on Friday due to the holiday schedule. On admission, labs show normal potassium, BUN- 24 Cr- 4.1 Minimal crackles bilaterally and no pitting edema on examination Plan: -Nephrology consulted for inpatient dialysis -Renally dose all medications -Avoid nephrotoxic medications #Hx of Hypertension On admission, initial blood pressure well-controlled at 119/85 - Restart antihypertensives if blood pressure is elevated #Chronic Back Pain The patient has a history of chronic back and shoulder pain -Resumed some home meds, pending med reconciliation Health maintenance: Dispo: MedTele Diet: Renal DVT: SC Heparin Richardson: Chronic Lines: Peripheral Med Rec: Pending, f/u PT: Not ordered Code: Full Case was discussed with attending physician, Dr Jonny Sawyer MD PGY-1
--- NOTE | 2024-05-14 07:21 | PC.RT ---
sputum sent to lab
--- NOTE | 2024-05-14 07:51 | PC.NURSE ---
Pt denies any discomfort upon assumption of care, BP remains elevated. Pt GCS 15, call ch in reach
--- NOTE | 2024-05-14 08:09 | ESCONSULT_ITS ---
HPI Data of Consult Consult date: 05/14/24 Requesting Physician: Tunde Fuller MD Admitting Provider: Tunde Fuller MD Attending Provider: Tunde Fuller MD Primary Care Provider: Bryce Bunn MD Consult Narrative Reason for consult: End-stage renal disease, dialysis History of present illness: Mr. Medrano is a 33-year-old male with a past medical history of paraplegia, hypertension, ESRD on HD (M/F), recurrent nephrolithiasis and UTIs, chronic after, status post tracheostomy ileostomy presenting from home to the ED on 05/14/2024 with dyspnea and cough that has progressively worsened for about 2 weeks. Patient denies any sick contacts and at baseline is on 3 L of oxygen which he uses at night but noticed that his symptoms worsen, he was saturating lower in the 90s. Patient admitted to the hospital for acute on chronic respiratory failure secondary to bibasilar pneumonia. Nephrology was consulted as patient has end- stage renal disease and is on hemodialysis (Friday/Friday) ED course: In the ED, patient was afebrile, slightly tachycardic with saturations in the 96%. CBC-WBC 7.4 Hgb 11.1 PLT 186 ESR 62 ABG 7.3 with pCO2 59 NA 130 1K4.1 CL 97 BUN 24 CR 4.1 glucose 121 ALP 196 CRP 2.8 BNP 247. UA showed turbid urine with 2+ protein, 2+ blood, 182 WBCs and 1+ bacteria. Bedside Covid, Influenza A&B and RSV negative. Preliminary read of CTA reviewed bilateral lower lobes consolidation with suspicion for pneumonia and complex bilateral pleural effusions with pleural thickening. Home medications: Pending med reconciliation 05/14/2024: Patient seen and examined at bedside patient receiving hemodialysis treatment today, patient's last hemodialysis was on Friday, patient has increased oxygen requirement, currently on supplemental oxygen 6 L, will continue with hemodialysis today. cc:: cc: Tunde Fuller MD Review of Systems Review of Systems Narrative Review of Systems: GENERAL: Denies fevers/chills or diaphoresis. HEENT: Denies headache or visual/hearing changes. Denies nasal discharge. NEURO: Denies unusual weakness or difficulty speaking. CARDIO: Denies chest pain or palpitations. PULM: Admits shortness of breath and cough GI: Denies abdominal pain, N/V/C/D/reflux/gas, bright red blood per rectum or melena. Reports having BMs. URO: Denies burning/itching/pain/urinary changes. MSK/EXT/SKIN: Denies joint/skeletal/muscle pain, issues/changes in upper or lower extremities, itchiness, or superficial pain. PSYCH: Cooperative, pleasant mood & affect. Past Medical History Past Medical History NEUROLOGIC: Positive Paralysis and Spinal Cord Injury; Negative Seizures CARDIAC: Positive Cardiac Disorders, Cardiac Arrhythmia, Hypertension and Hypotension; Negative Congestive Heart Failure RESPIRATORY: Positive Asthma, Sleep Apnea, Orthopnea and Intubation; Negative Chronic Obstructive Pulmonary Disease (COPD) GASTROINTESTINAL: Positive Gastrointestinal Disorders, Gastrointestinal Bleed, Hemorrhoids and Gastroesophageal Reflux Disease GENITOURINARY: Positive Genitourinary Disorders, Renal Disease, Kidney Stones, Neurogenic Bladder and Dialysis MUSCULOSKELETAL: Positive Musculoskeletal Disorders ENDOCRINE: Positive Hypothyroidism; Negative Diabetes Mellitus Type 1 or Diabetes Mellitus Type 2 HEMATOLOGIC: Negative Sickle Cell Disease PSYCHO/SOCIAL: Positive Depression and Anxiety OTHER HISTORY: Positive Hospitalization, Falls and Blood Transfusions; Negative Blood Transfusion Reaction or Anesthesia Reactions Family History FAMILY HISTORY: Positive Family Cancer Surgical History SURGICAL: Positive Tracheostomy Social History SMOKING STATUS: Light (< 1 pack/day) SECOND HAND EXPOSURE: No (11 cig/day since 16 yrs old) SUBSTANCE USE: marijuana (smokes daily) OCCUPATION: Unemployed, disabled Exam Vital Signs Temp Pulse Resp BP Pulse Ox O2 Del Method O2 Flow Rate 97.8 F 123 H 24 H 153/92 H 96 Room Air 3 05/14/24 06:27 05/14/24 07:14 05/14/24 07:14 05/14/24 06:27 05/14/24 07:14 05/14/24 06:27 05/14/24 07:14 Narrative Exam GENERAL: AAOX3. 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 Eyes open, symmetrical, & clear CARDIO: No chest pain on palpation. Heart RRR, no obvious murmurs PULM: No noted coughing/dyspnea. Coarse lung sounds on auscultation with mild crackles bilaterally. Oy mask on with 3.5L of O2 GI: Abdomen soft, nondistended, no pain on palpation. 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 Richardson catheter in-situ SKIN/MSK/EXT: Bilateral lower extremities atrophied from paraplegia. Right arm swollen but painless, AV fistula noted Results Labs 05/16/24 04:52 05/16/24 04:52 Labs: Short CBC 05/14/24 Range/Units 00:45 WBC 7.4 (3.8-10.6) Thou/mm3 Hgb 11.1 L (13.5-16.0) g/dL Hct 35.2 L (41.0-53.0) % Plt Count 186 (140-440) Thou/mm3 BMP 05/14/24 00:45 Sodium 131 L Potassium 4.1 Chloride 97 L Carbon Dioxide 28.1 BUN 24 H Creatinine 4.1 H* Glucose 121 H Calcium 9.1 Cardiac Enzymes 05/14/24 Range/Units 00:45 Troponin I < 0.020 (0.0-0.045) ng/mL Liver Function 05/14/24 Range/Units 00:45 Total Bilirubin < 0.2 L (0.3-1.2) mg/dL AST < 10 (0-34) U/L ALT < 7 L (10-49) U/L Alkaline Phosphatase 196 H (46-116) U/L Albumin 4.1 (3.5-5.0) gm/dL Urine 05/14/24 Range/Units 00:53 Urine Color Lt-Yellow (Lt Yel-Yel) Urine Clarity Turbid A (Clear/Hazy) Urine pH 7.0 (5.0-7.0) Ur Specific [place] 1.007 (1.001-1.035) Urine Protein 2+ A (Neg - Trace) Urine Glucose (UA) Negative (Negative) ABG Interpretation ABG results: 05/14/24 01:43 ABG pH 7.30 L ABG pCO2 59 H ABG pO2 97 ABG HCO3 29 H ABG O2 Saturation 99 H ABG Base Excess 1 Quality Measures Quality Measures none Medications Home Medications and Allergies Home Medications ?Medication ?Instructions ?Recorded ?Confirmed ?Type gabapentin 600 mg tablet 600 mg PO TID 03/29/19 04/11/24 History cholestyramine (with sugar) 4 gram 1 ea PO BID 08/24/20 04/14/24 History powder for susp in a packet levothyroxine 25 mcg tablet 25 mcg PO QDAY 08/24/20 04/11/24 History magnesium oxide 400 mg PO BID 08/24/20 04/14/24 History sevelamer carbonate 800 mg tablet 2,400 mg PO TIDWMEAL 08/24/20 04/11/24 History cinacalcet 30 mg tablet 30 mg PO QDAY 07/10/22 04/14/24 History midodrine 10 mg tablet 10 mg PO TID PRN Hypotension 07/10/22 04/14/24 History omeprazole 40 mg capsule,delayed 40 mg PO QDAY 07/10/22 04/14/24 History release hydrocodone 10 mg-acetaminophen 1 tab PO Q6H PRN Pain (Scale Score 12/26/22 04/11/24 History 325 mg tablet 7-10) sodium bicarbonate 650 mg tablet 650 mg PO BID 12/26/22 04/14/24 History cyclobenzaprine 5 mg tablet 5 mg PO Q8HR PRN Muscle Spasm 01/19/24 04/11/24 History Allergies Allergy/AdvReac Type Severity Reaction Status Date / Time piperacillin [From Zosyn] Allergy Severe Anaphylaxis Verified 01/18/24 12:28 tazobactam [From Zosyn] Allergy Severe Anaphylaxis Verified 01/18/24 12:28 LIZY Inhibitors Allergy Verified 01/18/24 12:28 Penicillins Allergy Anaphylaxis Verified 01/18/24 12:28 Visit Medications Acetaminophen (Acetaminophen 325 Mg Tablet) 650 mg PO Q6H PRN PRN Reason: Pain 1-3 or Fever >100.3 Stop: 06/13/24 06:09 Hydrocodone Bitart/Acetaminophen (Hydrocodone/Apap 5/325 Tablet) 1 tab PO Q4HR PRN PRN Reason: PAIN SCALE 4-10(Mod-Sev Stop: 05/19/24 06:09 Albuterol/Ipratropium (Albuterol/Ipratropium (Duoneb) Rt [place] 3 Ml Nebu) 3 ml INH Q6HRRT PRN PRN Reason: SOB or wheeze Stop: 06/13/24 06:59 Azithromycin (Azithromycin 250 Mg Tablet) 250 mg PO QDAY FOREIGN Stop: 05/22/24 08:59 Cyclobenzaprine HCl (Cyclobenzaprine 5 Mg Tablet) 5 mg PO Q8HR PRN PRN Reason: Muscle spasm Stop: 06/13/24 06:29 Heparin Sodium (Porcine) (Heparin Sod Inj 5000 Unit/Ml Vial) 5,000 unit SC Q12HR [facility] Stop: 05/28/24 08:59 Albumin Human (Albuminar-25 Ivpb) 25 gm in 100 mls @ 100 mls/min IV PRN PRN PRN Reason: DIALYSIS Levofloxacin/Dextrose (Levaquin Ivpb) 750 mg in 150 mls @ 100 mls/hr IV X1 ONE Stop: 05/14/24 09:14 Levofloxacin/Dextrose (Levaquin Ivpb) 500 mg in 100 mls @ 100 mls/hr IV QDAY [facility] Stop: 05/22/24 08:59 Ondansetron HCl (Ondansetron Inj 2 Mg/Ml Inj 2 Ml) 4 mg IV Q6HR PRN; Protocol PRN Reason: NAUSEA OR VOMITING Stop: 06/13/24 06:09 Promethazine HCl/Dextromethorphan (Promethazine/Dm Syrup 5 Ml Dose) 5 ml PO Q6HR PRN; Protocol PRN Reason: COUGH Stop: 06/13/24 06:14 Discontinued Medications Albuterol/Ipratropium (Albuterol/Ipratropium (Duoneb) Rt [place] 3 Ml Nebu) 9 ml INH X1 ONE Stop: 05/14/24 00:18 Last Admin: 05/14/24 01:30 Dose: 9 ml Diphenhydramine HCl (Diphenhydramine 25 Mg Capsule) 50 mg PO X1 ONE Stop: 05/14/24 00:41 Last Admin: 05/14/24 00:48 Dose: 50 mg Hydromorphone HCl (Hydromorphone Inj 2 Mg/Ml Vial) 1 mg IVP X1 ONE Stop: 05/14/24 01:15 Last Admin: 05/14/24 01:30 Dose: 1 mg Hydromorphone HCl (Hydromorphone Inj 2 Mg/Ml Vial) 1 mg IVP X1 ONE Stop: 05/14/24 05:19 Last Admin: 05/14/24 05:57 Dose: 1 mg Magnesium Sulfate (Magnesium Sulfate Ivpb) 2 gm in 50 mls @ 25 mls/hr IV X1 ONE Stop: 05/14/24 02:16 Last Infusion: 05/14/24 03:07 Dose: Infused Ceftriaxone Sodium 1,000 mg/ (Sodium Chloride) 50 mls @ 100 mls/hr IV X1 ONE Stop: 05/14/24 06:06 Last Admin: 05/14/24 06:07 Dose: Not Given Azithromycin 500 mg/ Sodium (Chloride) 250 mls @ 250 mls/hr IV X1 ONE Stop: 05/14/24 06:36 Last Infusion: 05/14/24 07:12 Dose: Infused Ketorolac Tromethamine (Ketorolac Inj 30 Mg/Ml Vial) 30 mg IVP X1 ONE Stop: 05/14/24 01:15 Last Admin: 05/14/24 01:29 Dose: 30 mg Methylprednisolone Sodium Succinate (Methylprednisolone Sod Succ 62.5 Mg/Ml 2ml Vial) 125 mg IVP X1 ONE Stop: 05/14/24 00:18 Last Admin: 05/14/24 00:36 Dose: 125 mg Morphine Sulfate (Morphine Sulf Inj 10 Mg/Ml Vial) 4 mg IVP X1 ONE Stop: 05/14/24 00:18 Last Admin: 05/14/24 00:36 Dose: 4 mg Morphine Sulfate (Morphine Sulf Inj 10 Mg/Ml Vial) 6 mg IVP X1 ONE Stop: 05/14/24 05:16 Last Admin: 05/14/24 06:48 Dose: Not Given Sodium Chloride (Sodium Chloride Rt 10% 15 Ml Nebu) 5 ml INH X1 ONE Stop: 05/14/24 06:11 Assessment & Plan Plan Summary: Mr. Medrano is a 33-year-old male with a past medical history of paraplegia, hypertension, ESRD on HD (M/F), recurrent nephrolithiasis and UTIs, chronic after, status post tracheostomy ileostomy presenting from home to the ED on 05/14/2024 with dyspnea and cough that has progressively worsened for about 2 weeks. Patient denies any sick contacts and at baseline is on 3 L of oxygen which he uses at night but noticed that his symptoms worsen, he was saturating lower in the 90s. Patient admitted to the hospital for acute on chronic respiratory failure secondary to bibasilar pneumonia. Nephrology was consulted as patient has end-stage renal disease and is on hemodialysis (Friday/Friday) #ESRD on HD(M/F) The patient has a history of ESRD and is being followed by [employer] Dr Jeff. His regular sessions are Friday and Friday but he had his most recent session on Wednesday 05/09 due to the holiday schedule. On admission, labs show normal potassium, BUN- 24 Cr- 4.1 Minimal crackles bilaterally and no pitting edema on examination. Patient does report that he is noncompliant with outpatient hemodialysis treatments. Plan: -Scheduled for hemodialysis today -Will continue with inpatient dialysis management -Renally dose all medications -Avoid nephrotoxic medications #Acute on chronic hypoxic respiratory failure #Bibasilar pneumonia #Complex bilateral pleural effusions #Asymptomatic bacteriuria #Chronic indwelling catheter #Hx of ESBL UTI #Hx of Hypertension #Chronic Back Pain Case discussed with Attending Dr. Haines. Gibran Santana PGY1 Attending Provider Attestation/Addendum Patient seen and examined with resident physician Dr. Santana. Note reviewed, agree with findings and recommendations. Patient currently seen on dialysis. Tolerating dialysis without any problems. Hemodialysis for 3 hours, 2K, ultrafiltration 1.5 L, Epogen 6000, no heparin ordered. Plan of care discussed with the dialysis nurse. Please see dialysis flowsheet for further details. Patient continues to make urine. He also have colostomy with thick stool. Ultrafiltration 1.5 L ordered. Also ordered upper extremity ultrasound to rule out DVT as there is significant discrepancy in both arms. Patient has a right arm AV fistula. He also had previous dialysis catheter. CT chest/abdomen/pelvis showed IMPRESSION: Bilateral hilar lymphadenopathy Moderate vascular congestion Significant bibasilar pneumonia Cirrhosis Recommend hepatobiliary sonography to exclude acute calculus cholecystitis Multiple bilateral renal calculi including 6 mm calculus in the left renal pelvis but no hydronephrosis or ureteral calculi Marked thickening of the urinary bladder wall, consider cystitis Subcutaneous abscess in the soft tissue posterior and below the coccyx, 8 x 2.4 x 5 cm, recommend ultrasound soft tissue follow-up in this area at the level of the intergluteal folds--- per primary team Thank you Dr. Fuller for allowing me to participate in the care of Mr. Matson
[2024-05-14] MEDS: LEVOFLOXACIN/D5W 750MG IVPB 750 MG/150 ML BAG 100 MG IV (08:10)
[2024-05-14] MEDS: HEPARIN SOD INJ 5000 UNIT/ML VIAL SC ×2 (08:10→20:44)
[2024-05-14] MEDS: ALBUTEROL/IPRATROPIUM (Duoneb) RT SOL 3 ML NEBU INH ×4 (08:16→23:56)
[2024-05-14] MEDS: HYDROcodone/APAP 5/325 TABLET 1 TAB PO ×2 (08:48→14:38)
--- NOTE | 2024-05-14 10:31 | PC.NURSE ---
hr trending up, pt denies all complaints of chest discomfort or pain,m will cont. to monitor
--- NOTE | 2024-05-14 11:02 | PC.NURSE ---
UF GOAL LOWERED TO 1L PER PT ORDER HE STATES 1.5L WAS TOO MUCH FLUID REMOVAL. WILL MONITOR
--- NOTE | 2024-05-14 11:15 | XR_ITS ---
Examination: Venous duplex upper extremity sonogram, bilateral. Date and time of exam: May 14, 2024 1503 hours INDICATIONS: Right arm swelling today, hypoxia shortness of breath tachycardia Technique: Multiple sonographic images of the deep venous system have been obtained. B-mode/2-D grayscale imaging of vascular structures and Doppler spectral analysis (waveforms) and color performed Both legs are examined. Findings: Deep venous systems do not demonstrate abnormal echogenicity. All visualized deep veins exhibit compressibility. All visualized deep veins exhibit augmentation. Impression: Negative for deep vein thrombosis
--- NOTE | 2024-05-14 12:20 | PC.NURSE ---
PT TOLERATING TX WELL, UF GOAL INCREASED TO 1.1L TOLERATED WILL MONITOR
--- NOTE | 2024-05-14 12:21 | PC.NURSE ---
PT TOLERAting tx, uf goal increased to 1.2L as tolerated will monitor
--- NOTE | 2024-05-14 12:46 | PC.NURSE ---
pt hr elevated, pt denies all c/o chest pain, pressure, BHATTI, SOB or discomfort will cont. to monitor.
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
[2024-05-14 14:02] LABS: Phosphorous 3.3 mg/dL (2.4-5.1)
[2024-05-14] MEDS: ACETYLCYSTEINE RT SOL 10% 4 ML NEBU 3 ML INH ×3 (14:12→23:55)
[2024-05-14] MEDS: GABAPENTIN 100 MG CAPSULE PO (14:28)
[2024-05-14] MEDS: VANCOMYCIN/NS 1 GM IVPB 200 ML IV (14:28)
[2024-05-14] MEDS: metroNIDAZOLE/NS 500 MG IVPB 500 MG/100 ML BAG 200 MG IV (14:29)
--- NOTE | 2024-05-14 14:30 | PC.NURSE ---
pt at dialysis, abx given late as pt was not available.
--- NOTE | 2024-05-14 14:48 | PC.CC ---
Pt Zoran Matson is a 33 yr old male admitted to hospitalist services for acute hypoxic respiratory failure. ASW met with pt at bedside to complete initial assessment. At time of encounter pt is noted to be alert and oriented to person, place and situation. Pt able to confirm all his demographic information. Pt expressed understanding admission order. Pt is from home, [address] [place] [address], where pt lives with his mom Juliana Matson [phone] and brother. Pt identifies his mother and grandmother Gaby Pisano [phone] as surrogate DM's. Pts brother is his [facility] care provider, pt states his brother gets max amount of hours. At baseline pt is paraplegic, confined to bed or wheelchair. Pt is max assist with his ADLs, which his brother helps him with. Pt is not diabetic. Pt is on dialysis MF @ [address] [facility]. Pt has medical transport arranged for transport. Pt is followed by Dr. Alonso for nephrology. Pt uses 3-4L of O2 at night to sleep, put unable to provide name of DME vendor. In ED pt is on 2L oxymask. Pt is followed by [facility] for primary care services. Pt states he will return home at time of D/c and will require gurney transport. Advance Directive not discussed at this time.
[2024-05-14] MEDS: LABETALOL INJ 5 MG/ML VIAL 20 ML IVP (16:29)
[2024-05-14] MEDS: HYDROmorphone INJ 2 MG/ML VIAL 0.5 MG IVP (16:36)
[2024-05-14 17:28] LABS: Base Excess 2 (-3-3); HCO3 29 mEq/L (20-26); Inspired O2, VO2 Liters 2 L/min; O2 Saturation 98 % (91-98); PCO2 59 mmHg (32.0-48.0); PO2 82 mmHg (83-108)
[2024-05-14 17:34] LABS: Basophils % (Auto) 0 % (0-2.5); Eosinophils % (Auto) 0 % (0-10); Hematocrit 37.2 % (41.0-53.0); Hemoglobin 11.4 g/dL (13.5-16.0); Immature Granulocytes % (Auto) 1 % (0-0); Immature Granulocytes Auto 0.05 Thou/mm3 (0.00-0.00); Lymphocytes # (Auto) 0.3 Thou/mm3 (1.0-4.8); Lymphocytes % (Auto) 3 % (10-50); Mean Corpuscular HGB Conc 30.6 g/dl (31.0-37.0); Mean Corpuscular Hemoglobin 31.9 pg (25.0-35.0); Mean Corpuscular Volume 104 fL (80-100); Monocytes # (Auto) 0.5 Thou/mm3 (0.0-0.8); Monocytes % (Auto) 4 % (0-12); Neutrophils # (Auto) 9.8 Thou/mm3 (1.8-7.7); Neutrophils % (Auto) 92 % (37-80); Nucleated Red Blood Cell % 0 /100 WBC (0); Platelet Count 146 Thou/mm3 (140-440); RDW Standard Deviation 52.4 fL (35.1-43.9); Red Blood Count 3.57 Miln/mm3 (4.50-5.90); White Blood Count 10.7 Thou/mm3 (3.8-10.6)
--- NOTE | 2024-05-14 17:40 | PC.NURSE ---
spoke w/provider at this time, provide to assess if pt can have more pain medication.
[2024-05-14 17:48] LABS: Allen Test Performed/OK; Puncture Site Right Radial
[2024-05-14 18:09] LABS: Alanine Aminotransferase < 7 U/L (10-49); Albumin, Serum 4.2 gm/dL (3.5-5.0); Albumin/Globulin Ratio 1.3 (1.2-2.2); Alkaline Phosphatase 164 U/L (46-116); Anion Gap 5 (7-16); Aspartate Amino Transferase 11 U/L (0-34); BUN/Creatinine Ratio 4 Ratio (12-20); Bilirubin,Total < 0.2 mg/dL (0.3-1.2); Blood Urea Nitrogen 12 mg/dL (9-23); Calcium 9.3 mg/dL (8.3-10.6); Calcium (Corrected) 9.3 mg/dL (8.5-10.1); Carbon Dioxide 28.4 mMol/L (20.0-31.0); Chloride 97 mMol/L (98-107); Creatinine (Component) 3.1 mg/dL (0.6-1.3); Estimated Creatinine Clearance 39.8 mL/min (>60); Globulin 3.2 gm/dL (2.3-3.5); Glucose 161 mg/dL (74-106); Osmolality,Calculated 263 (275-295); Potassium 4.7 mMol/L (3.4-5.1); Sodium 130 mMol/L (136-145); Total Protein 7.4 gm/dL (5.7-8.2); Troponin I < 0.002 ng/mL (0.0-0.045); eGFR 26 See Note
--- NOTE | 2024-05-14 18:42 | PC.NURSE ---
report given to sharla najera at 0165
[2024-05-14] MEDS: HYDROcodone/APAP 7.5/325 TABLET 1 TAB PO (20:43)
[2024-05-14] MEDS: GABAPENTIN 100 MG CAPSULE 200 MG PO (21:12)
[2024-05-14] MEDS: metroNIDAZOLE/NS 500 MG IVPB 500 MG/100 ML BAG 100 MG IV (21:14)
[2024-05-15] VITALS (17 sets, daily range): BP systolic 117–128; BP diastolic 80–96; PULSE 81–124; RESP 12–36; TEMP 36.1–36.4; O2SAT 93–100; BMI 32.1
[2024-05-15] MEDS: HYDROmorphone INJ 2 MG/ML VIAL 1 MG IVP ×5 (02:23→20:34)
[2024-05-15] MEDS: ACETYLCYSTEINE RT SOL 10% 4 ML NEBU 3 ML INH ×6 (03:11→22:58)
[2024-05-15] MEDS: ALBUTEROL/IPRATROPIUM (Duoneb) RT SOL 3 ML NEBU INH ×6 (03:11→22:58)
[2024-05-15] MEDS: metroNIDAZOLE/NS 500 MG IVPB 500 MG/100 ML BAG 100 MG IV ×3 (05:04→21:57)
[2024-05-15] MEDS: LEVOTHYROXINE SODIUM 25 MCG TABLET PO (05:06)
[2024-05-15] MEDS: GABAPENTIN 100 MG CAPSULE 200 MG PO ×3 (05:06→22:01)
[2024-05-15 05:51] LABS: Basophils % (Auto) 0 % (0-2.5); Eosinophils % (Auto) 0 % (0-10); Hematocrit 30.7 % (41.0-53.0); Hemoglobin 9.4 g/dL (13.5-16.0); Immature Granulocytes % (Auto) 1 % (0-0); Immature Granulocytes Auto 0.09 Thou/mm3 (0.00-0.00); Lymphocytes # (Auto) 0.6 Thou/mm3 (1.0-4.8); Lymphocytes % (Auto) 5 % (10-50); Mean Corpuscular HGB Conc 30.6 g/dl (31.0-37.0); Mean Corpuscular Hemoglobin 32.1 pg (25.0-35.0); Mean Corpuscular Volume 105 fL (80-100); Monocytes # (Auto) 1.3 Thou/mm3 (0.0-0.8); Monocytes % (Auto) 11 % (0-12); Neutrophils # (Auto) 10.3 Thou/mm3 (1.8-7.7); Neutrophils % (Auto) 84 % (37-80); Nucleated Red Blood Cell % 0 /100 WBC (0); Platelet Count 145 Thou/mm3 (140-440); RDW Standard Deviation 52.2 fL (35.1-43.9); Red Blood Count 2.93 Miln/mm3 (4.50-5.90); White Blood Count 12.2 Thou/mm3 (3.8-10.6)
[2024-05-15 05:59] LABS: INR 1.1 (0.9-1.3); Partial Thromboplastin Time 22.5 Seconds (22.0-36.0); Prothrombin Time 11.5 Seconds (9.0-12.2)
[2024-05-15 06:11] LABS: Alanine Aminotransferase 14 U/L (10-49); Albumin, Serum 3.8 gm/dL (3.5-5.0); Albumin/Globulin Ratio 1.4 (1.2-2.2); Alkaline Phosphatase 156 U/L (46-116); Anion Gap 6 (7-16); Aspartate Amino Transferase 14 U/L (0-34); BUN/Creatinine Ratio 5 Ratio (12-20); Bilirubin,Total < 0.2 mg/dL (0.3-1.2); Blood Urea Nitrogen 19 mg/dL (9-23); Calcium (Corrected) 9.2 mg/dL (8.5-10.1); Carbon Dioxide 28.2 mMol/L (20.0-31.0); Cardiac Risk Estimate 2.9 RATIO (4.0-6.7); Chloride 98 mMol/L (98-107); Cholesterol 96 mg/dL (132-200); Creatinine (Component) 3.5 mg/dL (0.6-1.3); Estimated Creatinine Clearance 40.7 mL/min (>60); Globulin 2.7 gm/dL (2.3-3.5); Glucose 149 mg/dL (74-106); HDL Cholesterol 33 mg/dL (40-60); LDL Cholesterol,Calculated 44 mg/dL (0-130); Osmolality,Calculated 269 (275-295); Phosphorous 3.7 mg/dL (2.4-5.1); Potassium 4.5 mMol/L (3.4-5.1); Sodium 132 mMol/L (136-145); Thyroid Stimulating Hormone 1.38 uIU/mL (0.55-4.78); Total Protein 6.5 gm/dL (5.7-8.2); Triglycerides 93 mg/dL (30-150); Vancomycin,Random 11.7 mcg/mL; eGFR 22 See Note
--- NOTE | 2024-05-15 07:22 | PD.RESPRO ---
Documentation for date of: 05/15/24 Subjective Subjective Interval history: Mr. Medrano is a 33-year-old male with a past medical history of paraplegia, hypertension, ESRD on HD (M/F), recurrent nephrolithiasis and UTIs, chronic after, status post tracheostomy ileostomy presenting from home to the ED on 05/14/2024 with dyspnea and cough that has progressively worsened for about 2 weeks. Patient denies any sick contacts and at baseline is on 3 L of oxygen which he uses at night but noticed that his symptoms worsen, he was saturating lower in the 90s. Patient admitted to the hospital for acute on chronic respiratory failure secondary to bibasilar pneumonia. Nephrology was consulted as patient has end-stage renal disease and is on hemodialysis (Friday/Friday) ED course: In the ED, patient was afebrile, slightly tachycardic with saturations in the 96%. CBC-WBC 7.4 Hgb 11.1 PLT 186 ESR 62 ABG 7.3 with pCO2 59 NA 130 1K4.1 CL 97 BUN 24 CR 4.1 glucose 121 ALP 196 CRP 2.8 BNP 247. UA showed turbid urine with 2+ protein, 2+ blood, 182 WBCs and 1+ bacteria. Bedside Covid, Influenza A&B and RSV negative. Preliminary read of CTA reviewed bilateral lower lobes consolidation with suspicion for pneumonia and complex bilateral pleural effusions with pleural thickening. Home medications: Pending med reconciliation 05/14/2024: Patient seen and examined at bedside patient receiving hemodialysis treatment today, patient's last hemodialysis was on Friday, patient has increased oxygen requirement, currently on supplemental oxygen 6 L, will continue with hemodialysis today. 05/15/2024: Patient seen and examined at bedside, patient on MedSurg floor, patient received hemodialysis treatment yesterday, had about 1.2 L fluid removed, patient takes sevelamer 2400 p.o. 3 times daily with meals, Cinacalcet and Lokelma daily at home. Patient's phosphorus level 3.7 today, patient will be started on sevelamer 800 mg p.o. 3 times daily with meals, will hold Cinacalcet and Lokelma for now. Patient continues to be on supplemental oxygen for now, was on BiPAP at night. Ultrasound of bilateral upper extremities was negative for any DVT. Will continue to monitor patient, patient will receive next hemodialysis treatment on Friday. Exam Vital Signs Temp Pulse Resp BP Pulse Ox O2 Del Method O2 Flow Rate 97.0 F 106 H 15 117/96 H 100 Oxy Mask 4 05/15/24 04:00 05/15/24 04:00 05/15/24 04:00 05/15/24 04:00 05/15/24 04:00 05/15/24 04:00 05/15/24 04:00 FiO2 30 05/15/24 04:00 Narrative Exam GENERAL: AAOX3. 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 Eyes open, symmetrical, & clear CARDIO: No chest pain on palpation. Heart RRR, no obvious murmurs PULM: Coarse lung sounds on auscultation with crackles noted bilaterally. Oxy mask on supplemental O2 GI: Abdomen soft, nondistended, no pain on palpation. Colostomy bag with good output URO/WORM FARMER:: No further abnormalities noted. Richardson catheter in-situ SKIN/MSK/EXT: Bilateral lower extremities atrophied from paraplegia. Right arm swelling improved, painless, AV fistula noted. Objective Labs 05/16/24 04:52 05/16/24 04:52 Labs: Laboratory Results - last 24 hr 05/14/24 05/14/24 05/14/24 13:30 17:22 17:25 WBC 10.7 H D RBC 3.57 L Hgb 11.4 L Hct 37.2 L MCV 104 H MCH 31.9 MCHC 30.6 L RDW Std Deviation 52.4 H Plt Count 146 D Neut % (Auto) 92 H Lymph % (Auto) 3 L [place] % (Auto) 4 Eos % (Auto) 0 Baso % (Auto) 0 Neut # (Auto) 9.8 H Lymph # (Auto) 0.3 L [place] # (Auto) 0.5 Eos # (Auto) 0.0 Baso # (Auto) 0.0 Immature Gran # (Auto) 0.05 H Absolute Nucleated RBC 0.00 Immature Gran % 1 H Nucleated RBC % 0 PT INR APTT Puncture Site Right Radial ABG pH 7.30 L ABG pCO2 59 H ABG pO2 82 L ABG HCO3 29 H ABG O2 Saturation 98 ABG Base Excess 2 Oxygen Liter Flow 2 Sodium 130 L Potassium 4.7 D Chloride 97 L Carbon Dioxide 28.4 Anion Gap 5 L BUN 12 Creatinine 3.1 H D Estim Creat Clear Calc 39.8 L eGFR 26 L BUN/Creatinine Ratio 4 L Glucose 161 H Calculated Osmolality 263 L Calcium 9.3 Corrected Calcium 9.3 Phosphorus 3.3 Magnesium 2.0 Total Bilirubin < 0.2 L AST 11 ALT < 7 L Alkaline Phosphatase 164 H D Troponin I < 0.002 Total Protein 7.4 Albumin 4.2 Globulin 3.2 Albumin/Globulin Ratio 1.3 Triglycerides Cholesterol LDL Cholesterol, Calc HDL Cholesterol Cholesterol/HDL Ratio TSH Random Vancomycin 05/15/24 05:09 WBC 12.2 H RBC 2.93 L Hgb 9.4 L D Hct 30.7 L MCV 105 H MCH 32.1 MCHC 30.6 L RDW Std Deviation 52.2 H Plt Count 145 Neut % (Auto) 84 H Lymph % (Auto) 5 L [place] % (Auto) 11 Eos % (Auto) 0 Baso % (Auto) 0 Neut # (Auto) 10.3 H Lymph # (Auto) 0.6 L [place] # (Auto) 1.3 H Eos # (Auto) 0.0 Baso # (Auto) 0.0 Immature Gran # (Auto) 0.09 H Absolute Nucleated RBC 0.00 Immature Gran % 1 H Nucleated RBC % 0 PT 11.5 INR 1.1 APTT 22.5 Puncture Site ABG pH ABG pCO2 ABG pO2 ABG HCO3 ABG O2 Saturation ABG Base Excess Oxygen Liter Flow Sodium 132 L Potassium 4.5 Chloride 98 Carbon Dioxide 28.2 Anion Gap 6 L BUN 19 Creatinine 3.5 H Estim Creat Clear Calc 40.7 L eGFR 22 L BUN/Creatinine Ratio 5 L Glucose 149 H Calculated Osmolality 269 L Calcium 9.0 Corrected Calcium 9.2 Phosphorus 3.7 Magnesium 2.0 Total Bilirubin < 0.2 L AST 14 ALT 14 Alkaline Phosphatase 156 H Troponin I Total Protein 6.5 Albumin 3.8 Globulin 2.7 Albumin/Globulin Ratio 1.4 Triglycerides 93 Cholesterol 96 L LDL Cholesterol, Calc 44 HDL Cholesterol 33 L Cholesterol/HDL Ratio 2.9 L TSH 1.38 Random Vancomycin 11.7 ABG Interpretation ABG results: 05/14/24 05/14/24 01:43 17:22 ABG pH 7.30 L 7.30 L ABG pCO2 59 H 59 H ABG pO2 97 82 L ABG HCO3 29 H 29 H ABG O2 Saturation 99 H 98 ABG Base Excess 1 2 Quality Measures Quality Measures none Assessment & Plan Assessment Current Active Medications: Generic Name Dose Route Start Last Admin Trade Name Freq PRN Reason Stop Dose Admin Acetaminophen 650 mg 05/14/24 06:10 Acetaminophen 325 Mg Tablet PO 06/13/24 06:09 Q6H PRN Pain 1-3 or Fever >100.3 Hydrocodone Bitart/Acetaminophen 1 tab 05/14/24 16:39 05/14/24 20:43 Hydrocodone/Apap 7.5/325 Tablet PO 05/19/24 16:38 1 tab Q6HR PRN Administration Pain 4-6 Acetylcysteine 3 ml 05/14/24 15:00 05/15/24 07:20 Acetylcysteine Rt [place] 10% 4 Ml Nebu INH 06/13/24 14:59 3 ml Q4HRRT FOREIGN Administration Albuterol/Ipratropium 3 ml 05/14/24 15:00 05/15/24 07:20 Albuterol/Ipratropium (Duoneb) Rt [place] 3 Ml Nebu INH 06/13/24 14:59 3 ml Q4HRRT FOREIGN Administration Amlodipine Besylate 5 mg 05/15/24 09:00 Amlodipine Besylate 5 Mg Tablet PO 06/14/24 08:59 QDAY FOREIGN Cyclobenzaprine HCl 5 mg 05/14/24 06:24 Cyclobenzaprine 5 Mg Tablet PO 06/13/24 06:29 Q8HR PRN Muscle spasm Protocol Gabapentin 200 mg 05/14/24 22:00 05/15/24 05:06 Gabapentin 100 Mg Capsule PO 06/13/24 21:59 200 mg TID FOREIGN Administration Guaifenesin 100 mg 05/14/24 12:20 Guaifenesin Syrup 200 Mg/10 Ml Udc PO 06/13/24 12:19 QID PRN COUGH OR CONGESTION Protocol Heparin Sodium (Porcine) 5,000 unit 05/14/24 09:00 05/14/24 20:44 Heparin Sod Inj 5000 Unit/Ml Vial SC 05/28/24 08:59 5,000 unit Q12HR FOREIGN Administration Hydromorphone HCl 1 mg 05/14/24 11:15 05/15/24 02:23 Hydromorphone Inj 2 Mg/Ml Vial IVP 05/19/24 11:14 1 mg Q4HR PRN Administration PAIN SCALE 7-10 (Severe Albumin Human 25 gm in 100 mls @ 100 mls/min 05/14/24 07:36 Albuminar-25 Ivpb IV PRN PRN DIALYSIS Levofloxacin/Dextrose 250 mg in 50 mls @ 50 mls/hr 05/15/24 09:00 Levaquin Ivpb IV 05/22/24 08:59 QDAY FOREIGN Metronidazole 500 mg in 100 mls @ 200 mls/hr 05/14/24 11:15 05/15/24 05:04 Flagyl 500 Mg Iv IV 05/21/24 11:14 100 mls/hr Q8HR FOREIGN Administration Vancomycin/Sodium Chloride 100 mls @ 120 mls/hr 05/15/24 10:00 Vancomycin/Ns 500 Mg Ivpb IV 05/15/24 10:49 X1 ONE Labetalol HCl 5 mg 05/14/24 16:23 Labetalol Inj 5 Mg/Ml Vial 20 Ml IVP 06/13/24 16:22 Q6HR PRN hypertension Levothyroxine Sodium 25 mcg 05/15/24 06:00 05/15/24 05:06 Levothyroxine Sodium 25 Mcg Tablet PO 06/14/24 05:59 25 mcg ACBR FOREIGN Administration Lidocaine 1 patch 05/14/24 16:35 Lidocaine 5% 1 Patch TOP 06/13/24 16:34 UD PRN backPain Protocol Ondansetron HCl 4 mg 05/14/24 06:10 Ondansetron Inj 2 Mg/Ml Inj 2 Ml IV 06/13/24 06:09 Q6HR PRN NAUSEA OR VOMITING Protocol Pharmacy Consult 1 each 05/14/24 11:15 Vancomycin Pharmacy To Dose 1 Each Each IV 06/13/24 11:14 QDAY PRN CONSULT Plan Summary: Mr. Medrano is a 33-year-old male with a past medical history of paraplegia, hypertension, ESRD on HD (M/F), recurrent nephrolithiasis and UTIs, chronic after, status post tracheostomy ileostomy presenting from home to the ED on 05/14/2024 with dyspnea and cough that has progressively worsened for about 2 weeks. Patient denies any sick contacts and at baseline is on 3 L of oxygen which he uses at night but noticed that his symptoms worsen, he was saturating lower in the 90s. Patient admitted to the hospital for acute on chronic respiratory failure secondary to bibasilar pneumonia. Nephrology was consulted as patient has end-stage renal disease and is on hemodialysis (Friday/Friday) #ESRD on HD(M/F) The patient has a history of ESRD and is being followed by [facility] Dr Jeff. His regular sessions are Friday and Friday but he had his most recent session on Wednesday 05/09 due to the holiday schedule. On admission, labs show normal potassium, BUN- 24 Cr- 4.1 Minimal crackles bilaterally and no pitting edema on examination. Patient does report that he is noncompliant with outpatient hemodialysis treatments. Bilateral upper extremity ultrasound negative for any DVT Plan: -Recieved Hemodialysis treatment yesterday, removed 1.2L fluid -Resumed sevelamer 800 mg 3 times daily with meal, will hold Cinacalcet and Lokelma for now -Will continue with inpatient dialysis management, next dialysis treatment scheduled for Friday -Renally dose all medications -Avoid nephrotoxic medications #Acute on chronic hypoxic respiratory failure #Bibasilar pneumonia #Complex bilateral pleural effusions #Asymptomatic bacteriuria #Chronic indwelling catheter #Hx of ESBL UTI #Hx of Hypertension #Chronic Back Pain #Subcutaneous Abscess Case discussed with Attending Dr. Haines. Gibran Santana PGY1 Attending Provider Attestation/Addendum Patient seen and examined with resident physician Dr. Santana. Note reviewed, agree with findings and recommendations. Patient did receive dialysis yesterday. Patient continues to make urine. He also have colostomy with thick stool. Treated for pneumonia. Significant secretions-Robinul ordered
[2024-05-15] MEDS: HEPARIN SOD INJ 5000 UNIT/ML VIAL SC ×2 (10:00→20:39)
[2024-05-15] MEDS: amLODIPine BESYLATE 5 MG TABLET PO (10:00)
[2024-05-15] MEDS: LEVOFLOXACIN/D5W 250MG IVPB 250 MG/50 ML BAG 50 MG IV (10:02)
[2024-05-15] MEDS: VANCOMYCIN/NS 500 MG IVPB 100 ML 120 MG IV (10:03)
[2024-05-15] MEDS: HYDROcodone/APAP 7.5/325 TABLET 1 TAB PO (10:05)
[2024-05-15] MEDS: guaiFENesin SYRUP 200 MG/10 ML UDC 100 MG PO ×3 (11:29→20:37)
[2024-05-15] MEDS: SEVELAMER CARBONATE 800 MG TABLET PO ×2 (11:30→17:55)
--- NOTE | 2024-05-15 13:17 | PC.DIETICIAN ---
1. Flavored Hal 1 pkt BID daily after lunch and dinner mix with 6-8 oz water for targeted nutrition and wound healing, RN to administer as medication. 2. Recommend adding Vitamin C 250mg BID daily, Zinc 220mg, and Nephrovite daily to ensure adequate nutrient intake and promote wound healing.
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
[2024-05-15] MEDS: CYCLObenzaPRINE 5 MG TABLET PO (14:06)
--- NOTE | 2024-05-15 15:09 | PD.SURCONS ---
HPI Consult details Consult date: 05/14/24 Reason for consultation narrative: The patient was seen in the emergency room at the request of resident for abscess in the sacral region Meds Home Medications and Allergies Home Medications ?Medication ?Instructions ?Recorded ?Confirmed ?Type gabapentin 600 mg tablet 600 mg PO TID 03/29/19 04/11/24 History cholestyramine (with sugar) 4 gram 1 ea PO BID 08/24/20 04/14/24 History powder for susp in a packet levothyroxine 25 mcg tablet 25 mcg PO QDAY 08/24/20 04/11/24 History magnesium oxide 400 mg PO BID 08/24/20 04/14/24 History sevelamer carbonate 800 mg tablet 2,400 mg PO TIDWMEAL 08/24/20 04/11/24 History sodium zirconium cyclosilicate 10 10 g PO QDAY 08/24/20 04/11/24 History gram oral powder packet (Lokelma) cinacalcet 30 mg tablet 30 mg PO QDAY 07/10/22 04/14/24 History midodrine 10 mg tablet 10 mg PO TID PRN Hypotension 07/10/22 04/14/24 History omeprazole 40 mg capsule,delayed 40 mg PO QDAY 07/10/22 04/14/24 History release hydrocodone 10 mg-acetaminophen 1 tab PO Q6H PRN Pain (Scale Score 12/26/22 04/11/24 History 325 mg tablet 7-10) sodium bicarbonate 650 mg tablet 650 mg PO BID 12/26/22 04/14/24 History cyclobenzaprine 5 mg tablet 5 mg PO Q8HR PRN Muscle Spasm 01/19/24 04/11/24 History Allergies Allergy/AdvReac Type Severity Reaction Status Date / Time piperacillin [From Zosyn] Allergy Severe Anaphylaxis Verified 01/18/24 12:28 tazobactam [From Zosyn] Allergy Severe Anaphylaxis Verified 01/18/24 12:28 LIZY Inhibitors Allergy Verified 01/18/24 12:28 Penicillins Allergy Anaphylaxis Verified 01/18/24 12:28 Exam Vital Signs Temp Pulse Resp BP Pulse Ox O2 Del Method O2 Flow Rate 97.2 F 107 H 23 H 120/86 H 99 Oxy Mask 3 05/15/24 11:52 05/15/24 14:57 05/15/24 14:57 05/15/24 11:52 05/15/24 14:57 05/15/24 11:52 05/15/24 14:57 FiO2 30 05/15/24 07:25 Assessment & Plan Additional Assessment Additional comments: Impression small abscess in the sacral region below the coccyx Plan Plan: We shall arrange for incision and drainage at the bedside. Patient does not require much debridement but probably drainage of the abscess may help.
--- NOTE | 2024-05-15 16:27 | PD.SUROPNT ---
Date of Procedure 05/15/24 Pre Op Diagnosis Abscess in the subcutaneous tissue of the coccygeal area Post Op Diagnosis Same Findings Patient was found to have a purulent nonsmelly drainage upon incision Procedure Description Procedure was done at the bedside because patient is paraplegic and did not have much sensation. After explaining the procedure and obtaining the consent patient was turned onto the left lateral position on the back of the sacrum and coccyx was washed with Betadine solution and draped. I injected about 20 cc of 1% Xylocaine because patient still wanted some pain medication. Then I used a 15 blade knife and made an incision over the swelling and purulent material came out which was drained out. Wound was then irrigated with saline solution and then packed with fluff dressing was applied. Anesthesia local Pathology / specimen None Estimated Blood Loss 20 Surgeon Cosme Becker MD
[2024-05-15] MEDS: LIDOCAINE HCL 1% 20 ML VIAL 30 ML INFL (16:34)
[2024-05-15] MEDS: HYDROcodone/APAP 10/325 TAB PO (17:55)
[2024-05-16] VITALS (19 sets, daily range): BP systolic 94–144; BP diastolic 59–87; PULSE 93–115; RESP 14–37; TEMP 36.1–36.4; O2SAT 94–100
[2024-05-16] MEDS: HYDROcodone/APAP 10/325 TAB PO ×4 (00:19→19:18)
[2024-05-16] MEDS: HYDROmorphone INJ 2 MG/ML VIAL 1 MG IVP ×4 (01:18→16:12)
[2024-05-16] MEDS: ALBUTEROL/IPRATROPIUM (Duoneb) RT SOL 3 ML NEBU INH ×6 (02:31→23:31)
[2024-05-16] MEDS: ACETYLCYSTEINE RT SOL 10% 4 ML NEBU 3 ML INH ×6 (02:31→23:31)
[2024-05-16] MEDS: CYCLObenzaPRINE 5 MG TABLET PO (02:53)
[2024-05-16 05:10] LABS: Basophils # (Auto) 0.1 Thou/mm3 (0.0-0.2); Basophils % (Auto) 1 % (0-2.5); Eosinophils # (Auto) 0.1 Thou/mm3 (0.0-0.5); Eosinophils % (Auto) 1 % (0-10); Hematocrit 33.5 % (41.0-53.0); Immature Granulocytes % (Auto) 1 % (0-0); Immature Granulocytes Auto 0.13 Thou/mm3 (0.00-0.00); Lymphocytes # (Auto) 1.7 Thou/mm3 (1.0-4.8); Lymphocytes % (Auto) 13 % (10-50); Mean Corpuscular HGB Conc 29.9 g/dl (31.0-37.0); Mean Corpuscular Hemoglobin 31.9 pg (25.0-35.0); Mean Corpuscular Volume 107 fL (80-100); Monocytes # (Auto) 2.2 Thou/mm3 (0.0-0.8); Monocytes % (Auto) 18 % (0-12); Neutrophils # (Auto) 8.2 Thou/mm3 (1.8-7.7); Neutrophils % (Auto) 67 % (37-80); Nucleated Red Blood Cell % 0 /100 WBC (0); Platelet Count 153 Thou/mm3 (140-440); RDW Standard Deviation 55.6 fL (35.1-43.9); Red Blood Count 3.13 Miln/mm3 (4.50-5.90); White Blood Count 12.3 Thou/mm3 (3.8-10.6)
[2024-05-16] MEDS: GABAPENTIN 100 MG CAPSULE 200 MG PO (05:25)
[2024-05-16] MEDS: LEVOTHYROXINE SODIUM 25 MCG TABLET PO (05:25)
[2024-05-16] MEDS: guaiFENesin SYRUP 200 MG/10 ML UDC 100 MG PO ×4 (05:26→20:32)
[2024-05-16] MEDS: metroNIDAZOLE/NS 500 MG IVPB 500 MG/100 ML BAG 100 MG IV ×3 (05:28→21:30)
[2024-05-16 05:51] LABS: Alanine Aminotransferase 11 U/L (10-49); Albumin, Serum 3.7 gm/dL (3.5-5.0); Albumin/Globulin Ratio 1.4 (1.2-2.2); Alkaline Phosphatase 159 U/L (46-116); Anion Gap 7 (7-16); Aspartate Amino Transferase 14 U/L (0-34); BUN/Creatinine Ratio 6 Ratio (12-20); Bilirubin,Total < 0.2 mg/dL (0.3-1.2); Blood Urea Nitrogen 23 mg/dL (9-23); Calcium 8.6 mg/dL (8.3-10.6); Calcium (Corrected) 8.8 mg/dL (8.5-10.1); Carbon Dioxide 23.4 mMol/L (20.0-31.0); Chloride 100 mMol/L (98-107); Creatinine (Component) 3.9 mg/dL (0.6-1.3); Estimated Creatinine Clearance 36.5 mL/min (>60); Globulin 2.7 gm/dL (2.3-3.5); Glucose 137 mg/dL (74-106); Magnesium 1.9 mg/dL (1.6-2.6); Osmolality,Calculated 266 (275-295); Phosphorous 3.7 mg/dL (2.4-5.1); Potassium 4.8 mMol/L (3.4-5.1); Sodium 130 mMol/L (136-145); Total Protein 6.4 gm/dL (5.7-8.2); Vancomycin,Random 13.1 mcg/mL; eGFR 20 See Note
[2024-05-16] MEDS: SEVELAMER CARBONATE 800 MG TABLET PO ×3 (09:47→18:25)
[2024-05-16] MEDS: amLODIPine BESYLATE 5 MG TABLET PO (09:53)
[2024-05-16] MEDS: LEVOFLOXACIN/D5W 250MG IVPB 250 MG/50 ML BAG 50 MG IV (09:53)
[2024-05-16] MEDS: VANCOMYCIN/NS 500 MG IVPB 100 ML 120 MG IV (09:53)
--- NOTE | 2024-05-16 11:26 | ESPR_ITS ---
Documentation for date of: 05/16/24 Subjective Subjective Interval history: Mr. Medrano is a 33-year-old male with a past medical history of paraplegia, hypertension, ESRD on HD (M/F), recurrent nephrolithiasis and UTIs, chronic after, status post tracheostomy ileostomy presenting from home to the ED on 05/14/2024 with dyspnea and cough that has progressively worsened for about 2 weeks. Patient denies any sick contacts and at baseline is on 3 L of oxygen which he uses at night but noticed that his symptoms worsen, he was saturating lower in the 90s. Patient admitted to the hospital for acute on chronic respiratory failure secondary to bibasilar pneumonia. Nephrology was consulted as patient has end- stage renal disease and is on hemodialysis (Friday/Friday) ED course: In the ED, patient was afebrile, slightly tachycardic with saturations in the 96%. CBC-WBC 7.4 Hgb 11.1 PLT 186 ESR 62 ABG 7.3 with pCO2 59 NA 130 1K4.1 CL 97 BUN 24 CR 4.1 glucose 121 ALP 196 CRP 2.8 BNP 247. UA showed turbid urine with 2+ protein, 2+ blood, 182 WBCs and 1+ bacteria. Bedside Covid, Influenza A&B and RSV negative. Preliminary read of CTA reviewed bilateral lower lobes consolidation with suspicion for pneumonia and complex bilateral pleural effusions with pleural thickening. Home medications: Pending med reconciliation 05/14/2024: Patient seen and examined at bedside patient receiving hemodialysis treatment today, patient's last hemodialysis was on Friday, patient has increased oxygen requirement, currently on supplemental oxygen 6 L, will continue with hemodialysis today. 05/15/2024: Patient seen and examined at bedside, patient on MedSurg floor, patient received hemodialysis treatment yesterday, had about 1.2 L fluid removed, patient takes sevelamer 2400 p.o. 3 times daily with meals, Cinacalcet and Lokelma daily at home. Patient's phosphorus level 3.7 today, patient will be started on sevelamer 800 mg p.o. 3 times daily with meals, will hold Cinacalcet and Lokelma for now. Patient continues to be on supplemental oxygen for now, was on BiPAP at night. Ultrasound of bilateral upper extremities was negative for any DVT. Will continue to monitor patient, patient will receive next hemodialysis treatment on Friday. 05/16/2024: Patient was seen and examined by the bedside. No acute overnight events. Patient continues to have productive cough. Will proceed with dialysis on Friday. Labs showed sodium 130, porassium 4.8, BUN 23, creatinine 3.9, calcium 8.8, phosphorus 3.7. Continues to use BiPAP overnight. Exam Vital Signs Temp Pulse Resp BP Pulse Ox O2 Del Method O2 Flow Rate 97.4 F 127 H 13 116/87 H 94 L BiPAP 4 05/16/24 08:00 05/16/24 11:09 05/16/24 11:09 05/16/24 09:53 05/16/24 11:09 05/16/24 08:00 05/16/24 11:09 FiO2 30 05/16/24 11:09 Narrative Exam GENERAL: AAOX3. Lying comfortably in bed. NEURO: SIGNAL AND COMMUNICATIONS MAINTAINER grossly intact HEENT: Moist mucosa. Eyes open, symmetrical, & clear CARDIO: No chest pain on palpation. Heart RRR, no obvious murmurs PULM: Rhonchi on auscultation with crackles noted bilaterally. Oxy mask on supplemental O2 GI: Abdomen soft, nondistended, no pain on palpation. Colostomy bag with good output URO/APPLICATIONS SYSTEMS ENGINEER:: No further abnormalities noted. Richardson catheter. SKIN/MSK/EXT: Bilateral lower extremities atrophied from paraplegia. Right arm swelling improved, painless, AV fistula noted. Objective Labs 05/16/24 04:52 05/16/24 04:52 Labs: Laboratory Results - last 24 hr 05/16/24 04:52 WBC 12.3 H RBC 3.13 L Hgb 10.0 L Hct 33.5 L MCV 107 H MCH 31.9 MCHC 29.9 L RDW Std Deviation 55.6 H Plt Count 153 Neut % (Auto) 67 Lymph % (Auto) 13 [place] % (Auto) 18 H Eos % (Auto) 1 Baso % (Auto) 1 Neut # (Auto) 8.2 H Lymph # (Auto) 1.7 [place] # (Auto) 2.2 H Eos # (Auto) 0.1 Baso # (Auto) 0.1 Immature Gran # (Auto) 0.13 H Absolute Nucleated RBC 0.00 Immature Gran % 1 H Nucleated RBC % 0 Sodium 130 L Potassium 4.8 Chloride 100 Carbon Dioxide 23.4 Anion Gap 7 BUN 23 Creatinine 3.9 H Estim Creat Clear Calc 36.5 L eGFR 20 L BUN/Creatinine Ratio 6 L Glucose 137 H Calculated Osmolality 266 L Calcium 8.6 Corrected Calcium 8.8 Phosphorus 3.7 Magnesium 1.9 Total Bilirubin < 0.2 L AST 14 ALT 11 Alkaline Phosphatase 159 H Total Protein 6.4 Albumin 3.7 Globulin 2.7 Albumin/Globulin Ratio 1.4 Random Vancomycin 13.1 ABG Interpretation ABG results: 05/14/24 05/14/24 01:43 17:22 ABG pH 7.30 L 7.30 L ABG pCO2 59 H 59 H ABG pO2 97 82 L ABG HCO3 29 H 29 H ABG O2 Saturation 99 H 98 ABG Base Excess 1 2 Quality Measures Quality Measures VTE prophylaxis (Heparin SC) Assessment & Plan Assessment Current Active Medications: Generic Name Dose Route Start Last Admin Trade Name Freq PRN Reason Stop Dose Admin Acetaminophen 650 mg 05/14/24 06:10 Acetaminophen 325 Mg Tablet PO 06/13/24 06:09 Q6H PRN Pain 1-3 or Fever >100.3 Hydrocodone Bitart/Acetaminophen 1 tab 05/15/24 11:02 05/16/24 06:26 Hydrocodone/Apap 10/325 Tab PO 05/20/24 11:01 1 tab Q6HR PRN Administration PAIN SCALE 4-6(MODERATE) Acetylcysteine 3 ml 05/14/24 15:00 05/16/24 11:09 Acetylcysteine Rt L[place] 10% 4 Ml Nebu INH 06/13/24 14:59 3 ml Q4HRRT FOREIGN Administration Albuterol/Ipratropium 3 ml 05/14/24 15:00 05/16/24 11:09 Albuterol/Ipratropium (Duoneb) Rt [place] 3 Ml Nebu INH 06/13/24 14:59 3 ml Q4HRRT FOREIGN Administration Amlodipine Besylate 5 mg 05/15/24 09:00 05/16/24 09:53 Amlodipine Besylate 5 Mg Tablet PO 06/14/24 08:59 5 mg QDAY FOREIGN Administration Cyclobenzaprine HCl 5 mg 05/14/24 06:24 05/16/24 02:53 Cyclobenzaprine 5 Mg Tablet PO 06/13/24 06:29 5 mg Q8HR PRN Administration Muscle spasm Protocol Gabapentin 300 mg 05/16/24 14:00 Gabapentin 100 Mg Capsule PO 06/15/24 13:59 TID FOREIGN Guaifenesin 100 mg 05/15/24 12:00 05/16/24 05:26 Guaifenesin Syrup 200 Mg/10 Ml Udc PO 05/17/24 11:59 100 mg QID FOREIGN Administration Protocol Heparin Sodium (Porcine) 5,000 unit 05/14/24 09:00 05/16/24 10:07 Heparin Sod Inj 5000 Unit/Ml Vial SC 05/28/24 08:59 Not Given Q12HR FOREIGN Hydromorphone HCl 1 mg 05/14/24 11:15 05/16/24 09:50 Hydromorphone Inj 2 Mg/Ml Vial IVP 05/19/24 11:14 1 mg Q4HR PRN Administration PAIN SCALE 7-10 (Severe Albumin Human 25 gm in 100 mls @ 100 mls/min 05/14/24 07:36 Albuminar-25 Ivpb IV PRN PRN DIALYSIS Levofloxacin/Dextrose 250 mg in 50 mls @ 50 mls/hr 05/15/24 09:00 05/16/24 09:53 Levaquin Ivpb IV 05/22/24 08:59 50 mls/hr QDAY FOREIGN Administration Metronidazole 500 mg in 100 mls @ 200 mls/hr 05/14/24 11:15 05/16/24 05:28 Flagyl 500 Mg Iv IV 05/21/24 11:14 100 mls/hr Q8HR FOREIGN Administration Labetalol HCl 5 mg 05/14/24 16:23 Labetalol Inj 5 Mg/Ml Vial 20 Ml IVP 06/13/24 16:22 Q6HR PRN hypertension Levothyroxine Sodium 25 mcg 05/15/24 06:00 05/16/24 05:25 Levothyroxine Sodium 25 Mcg Tablet PO 06/14/24 05:59 25 mcg ACBR FOREIGN Administration Lidocaine 1 patch 05/14/24 16:35 Lidocaine 5% 1 Patch TOP 06/13/24 16:34 UD PRN backPain Protocol Ondansetron HCl 4 mg 05/14/24 06:10 Ondansetron Inj 2 Mg/Ml Inj 2 Ml IV 06/13/24 06:09 Q6HR PRN NAUSEA OR VOMITING Protocol Pharmacy Consult 1 each 05/14/24 11:15 Vancomycin Pharmacy To Dose 1 Each Each IV 06/13/24 11:14 QDAY PRN CONSULT Sevelamer Carbonate 800 mg 05/15/24 12:00 05/16/24 09:47 Sevelamer Carbonate 800 Mg Tablet PO 06/14/24 11:59 800 mg TIDWM [facility] Administration Plan Summary: Mr. Medrano is a 33-year-old male with a past medical history of paraplegia, hypertension, ESRD on HD (M/F), recurrent nephrolithiasis and UTIs, chronic after, status post tracheostomy ileostomy presenting from home to the ED on 05/14/2024 with dyspnea and cough that has progressively worsened for about 2 weeks. Patient denies any sick contacts and at baseline is on 3 L of oxygen which he uses at night but noticed that his symptoms worsen, he was saturating lower in the 90s. Patient admitted to the hospital for acute on chronic respiratory failure secondary to bibasilar pneumonia. Nephrology was consulted as patient has end-stage renal disease and is on hemodialysis (Friday/Friday) #ESRD on HD(M/F) The patient has a history of ESRD and is being followed by [facility] Dr Jeff. His regular sessions are Friday and Friday but he had his most recent session on Wednesday 05/09 due to the holiday schedule. On admission, labs show normal potassium, BUN- 24 Cr- 4.1 Minimal crackles bilaterally and no pitting edema on examination. Patient does report that he is noncompliant with outpatient hemodialysis treatments. Bilateral upper extremity ultrasound negative for any DVT Plan: -Continue sevelamer 800 mg 3 times daily with meal, will hold Cinacalcet and Lokelma for now -Will continue with inpatient dialysis management, next dialysis treatment scheduled for Friday -Renally dose all medications -Avoid nephrotoxic medications #Acute on chronic hypoxic respiratory failure #Bibasilar pneumonia #Complex bilateral pleural effusions #Asymptomatic bacteriuria #Chronic indwelling catheter #Hx of ESBL UTI #Hx of Hypertension #Chronic Back Pain #Subcutaneous Abscess Plan of care discussed with attending Dr. Haines. Leslie Hinojosa MD, PGY 1. Attending Provider Attestation/Addendum Patient seen and examined with resident physician Dr. Nelson. Note reviewed, agree with findings and recommendations. Patient did receive dialysis Friday. Next dialysis scheduled for Friday. Patient continues to make urine. He also have colostomy with thick stool. Treated for pneumonia. Significant secretions-Monica ordered
[2024-05-16] MEDS: GABAPENTIN 100 MG CAPSULE 300 MG PO ×2 (13:11→21:30)
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
[2024-05-16] MEDS: HYDROmorphone INJ 2 MG/ML VIAL 0.5 MG IVP (19:54)
[2024-05-16] MEDS: HEPARIN SOD INJ 5000 UNIT/ML VIAL SC (20:32)
[2024-05-17] VITALS (14 sets, daily range): BP systolic 102–147; BP diastolic 54–89; PULSE 87–117; RESP 14–30; TEMP 33.4–36.7; O2SAT 94–100
[2024-05-17] MEDS: ACETYLCYSTEINE RT SOL 10% 4 ML NEBU 3 ML INH ×6 (03:18→23:47)
[2024-05-17] MEDS: ALBUTEROL/IPRATROPIUM (Duoneb) RT SOL 3 ML NEBU INH ×6 (03:18→23:48)
[2024-05-17] MEDS: metroNIDAZOLE/NS 500 MG IVPB 500 MG/100 ML BAG 100 MG IV ×3 (05:24→21:20)
[2024-05-17] MEDS: guaiFENesin SYRUP 200 MG/10 ML UDC 100 MG PO (05:25)
[2024-05-17] MEDS: LEVOTHYROXINE SODIUM 25 MCG TABLET PO (05:26)
[2024-05-17] MEDS: HYDROcodone/APAP 10/325 TAB PO ×3 (05:28→21:19)
[2024-05-17] MEDS: GABAPENTIN 100 MG CAPSULE 300 MG PO ×3 (05:30→21:19)
[2024-05-17 06:07] LABS: Basophils # (Auto) 0.1 Thou/mm3 (0.0-0.2); Basophils % (Auto) 1 % (0-2.5); Eosinophils # (Auto) 0.1 Thou/mm3 (0.0-0.5); Eosinophils % (Auto) 1 % (0-10); Hematocrit 31.2 % (41.0-53.0); Hemoglobin 9.3 g/dL (13.5-16.0); Immature Granulocytes % (Auto) 2 % (0-0); Immature Granulocytes Auto 0.16 Thou/mm3 (0.00-0.00); Lymphocytes % (Auto) 9 % (10-50); Mean Corpuscular HGB Conc 29.8 g/dl (31.0-37.0); Mean Corpuscular Hemoglobin 32.1 pg (25.0-35.0); Mean Corpuscular Volume 108 fL (80-100); Monocytes # (Auto) 1.4 Thou/mm3 (0.0-0.8); Monocytes % (Auto) 13 % (0-12); Neutrophils # (Auto) 8.3 Thou/mm3 (1.8-7.7); Neutrophils % (Auto) 75 % (37-80); Nucleated Red Blood Cell % 0 /100 WBC (0); Platelet Count 165 Thou/mm3 (140-440); RDW Standard Deviation 54.5 fL (35.1-43.9)
[2024-05-17 06:38] LABS: Alanine Aminotransferase 10 U/L (10-49); Albumin, Serum 3.8 gm/dL (3.5-5.0); Albumin/Globulin Ratio 1.4 (1.2-2.2); Alkaline Phosphatase 136 U/L (46-116); Anion Gap 4 (7-16); Aspartate Amino Transferase < 8 U/L (0-34); BUN/Creatinine Ratio 8 Ratio (12-20); Bilirubin,Total < 0.2 mg/dL (0.3-1.2); Blood Urea Nitrogen 38 mg/dL (9-23); Calcium 8.9 mg/dL (8.3-10.6); Calcium (Corrected) 9.1 mg/dL (8.5-10.1); Carbon Dioxide 26.7 mMol/L (20.0-31.0); Chloride 99 mMol/L (98-107); Creatinine (Component) 4.5 mg/dL (0.6-1.3); Estimated Creatinine Clearance 31.6 mL/min (>60); Globulin 2.7 gm/dL (2.3-3.5); Glucose 105 mg/dL (74-106); Magnesium 1.9 mg/dL (1.6-2.6); Osmolality,Calculated 269 (275-295); Phosphorous 5.8 mg/dL (2.4-5.1); Potassium 5.4 mMol/L (3.4-5.1); Sodium 130 mMol/L (136-145); Total Protein 6.5 gm/dL (5.7-8.2); Vancomycin,Random 15.3 mcg/mL; eGFR 17 See Note
[2024-05-17] MEDS: amLODIPine BESYLATE 5 MG TABLET PO (09:07)
[2024-05-17] MEDS: SEVELAMER CARBONATE 800 MG TABLET PO ×3 (09:07→16:33)
[2024-05-17] MEDS: LEVOFLOXACIN/D5W 250MG IVPB 250 MG/50 ML BAG 50 MG IV (09:07)
--- NOTE | 2024-05-17 09:07 | PC.SS ---
SS follow up note; Pending Urine cultures, possible discharge today.
[2024-05-17] MEDS: HEPARIN SOD INJ 5000 UNIT/ML VIAL SC ×2 (09:08→20:15)
[2024-05-17] MEDS: HYDROmorphone INJ 2 MG/ML VIAL 1 MG IVP ×3 (11:48→20:14)
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
[2024-05-17] MEDS: CYCLObenzaPRINE 5 MG TABLET PO (14:29)
--- NOTE | 2024-05-17 15:55 | PD.NEPHPROG ---
Documentation for date of: 05/17/24 Subjective Subjective Interval history: Mr. Medrano is a 33-year-old male with a past medical history of paraplegia, hypertension, ESRD on HD (M/F), recurrent nephrolithiasis and UTIs, chronic after, status post tracheostomy ileostomy presenting from home to the ED on 05/14/2024 with dyspnea and cough that has progressively worsened for about 2 weeks. Patient denies any sick contacts and at baseline is on 3 L of oxygen which he uses at night but noticed that his symptoms worsen, he was saturating lower in the 90s. Patient admitted to the hospital for acute on chronic respiratory failure secondary to bibasilar pneumonia. Nephrology was consulted as patient has end-stage renal disease and is on hemodialysis (Friday/Friday) ED course: In the ED, patient was afebrile, slightly tachycardic with saturations in the 96%. CBC-WBC 7.4 Hgb 11.1 PLT 186 ESR 62 ABG 7.3 with pCO2 59 NA 130 1K4.1 CL 97 BUN 24 CR 4.1 glucose 121 ALP 196 CRP 2.8 BNP 247. UA showed turbid urine with 2+ protein, 2+ blood, 182 WBCs and 1+ bacteria. Bedside Covid, Influenza A&B and RSV negative. Preliminary read of CTA reviewed bilateral lower lobes consolidation with suspicion for pneumonia and complex bilateral pleural effusions with pleural thickening. Home medications: Pending med reconciliation 05/14/2024: Patient seen and examined at bedside patient receiving hemodialysis treatment today, patient's last hemodialysis was on Friday, patient has increased oxygen requirement, currently on supplemental oxygen 6 L, will continue with hemodialysis today. 05/15/2024: Patient seen and examined at bedside, patient on MedSurg floor, patient received hemodialysis treatment yesterday, had about 1.2 L fluid removed, patient takes sevelamer 2400 p.o. 3 times daily with meals, Cinacalcet and Lokelma daily at home. Patient's phosphorus level 3.7 today, patient will be started on sevelamer 800 mg p.o. 3 times daily with meals, will hold Cinacalcet and Lokelma for now. Patient continues to be on supplemental oxygen for now, was on BiPAP at night. Ultrasound of bilateral upper extremities was negative for any DVT. Will continue to monitor patient, patient will receive next hemodialysis treatment on Friday. 05/16/2024: Patient was seen and examined by the bedside. No acute overnight events. Patient continues to have productive cough. Will proceed with dialysis on Friday. Labs showed sodium 130, porassium 4.8, BUN 23, creatinine 3.9, calcium 8.8, phosphorus 3.7. Continues to use BiPAP overnight. 05/17/2024 patient currently seen in medical floor. Today he declined dialysis. Potassium was elevated. Kayexalate was given. Will plan for dialysis tomorrow. Still having significant cough with the sputum. Review of Systems Review of Systems Narrative Review of Systems: GENERAL: Denies fevers/chills or diaphoresis. HEENT: Denies headache or visual/hearing changes. Denies nasal discharge. NEURO: Denies unusual weakness or difficulty speaking. CARDIO: Denies chest pain or palpitations. PULM: Admits shortness of breath and cough GI: Denies abdominal pain, N/V/C/D/reflux/gas, bright red blood per rectum or melena. Reports having BMs. URO: Denies burning/itching/pain/urinary changes. MSK/EXT/SKIN: Denies joint/skeletal/muscle pain, issues/changes in upper or lower extremities, itchiness, or superficial pain. PSYCH: Cooperative, pleasant mood & affect. Exam Vital Signs Temp Pulse Resp BP Pulse Ox O2 Del Method O2 Flow Rate 36.7 C 98 25 H 117/89 H 100 Nasal Cannula 5 05/17/24 12:00 05/17/24 14:05 05/17/24 14:05 05/17/24 12:05/17/24 14:05 05/17/24 12:00 05/17/24 14:05 FiO2 30 05/17/24 08:00 Narrative Exam GENERAL: AAOX3. Lying comfortably in bed. 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 Eyes open, symmetrical, & clear CARDIO: No chest pain on palpation. Heart RRR, no obvious murmurs PULM: Rhonchi on auscultation with crackles noted bilaterally. Oxy mask on supplemental O2 GI: Abdomen soft, nondistended, no pain on palpation. Colostomy bag with good output URO/WIRELESS SALES MANAGER:: No further abnormalities noted. Richardson catheter. SKIN/MSK/EXT: Bilateral lower extremities contractures from paraplegia. Right arm swelling improved, painless, AV fistula noted. Objective Labs 05/18/24 04:42 05/18/24 04:42 Labs: Laboratory Results - last 24 hr 05/17/24 05:30 WBC 11.0 H RBC 2.90 L Hgb 9.3 L Hct 31.2 L MCV 108 H MCH 32.1 MCHC 29.8 L RDW Std Deviation 54.5 H Plt Count 165 Neut % (Auto) 75 Lymph % (Auto) 9 L [place] % (Auto) 13 H Eos % (Auto) 1 Baso % (Auto) 1 Neut # (Auto) 8.3 H Lymph # (Auto) 1.0 [place] # (Auto) 1.4 H Eos # (Auto) 0.1 Baso # (Auto) 0.1 Immature Gran # (Auto) 0.16 H Absolute Nucleated RBC 0.00 Immature Gran % 2 H Nucleated RBC % 0 Sodium 130 L Potassium 5.4 H D Chloride 99 Carbon Dioxide 26.7 Anion Gap 4 L BUN 38 H Creatinine 4.5 H* D Estim Creat Clear Calc 31.6 L eGFR 17 L BUN/Creatinine Ratio 8 L Glucose 105 Calculated Osmolality 269 L Calcium 8.9 Corrected Calcium 9.1 Phosphorus 5.8 H Magnesium 1.9 Total Bilirubin < 0.2 L AST < 8 ALT 10 Alkaline Phosphatase 136 H D Total Protein 6.5 Albumin 3.8 Globulin 2.7 Albumin/Globulin Ratio 1.4 Random Vancomycin 15.3 ABG Interpretation ABG results: 05/14/24 05/14/24 01:43 17:22 ABG pH 7.30 L 7.30 L ABG pCO2 59 H 59 H ABG pO2 97 82 L ABG HCO3 29 H 29 H ABG O2 Saturation 99 H 98 ABG Base Excess 1 2 Assessment & Plan Additional Assessment & Plan Additional Plan: Mr. Medrano is a 33-year-old male with a past medical history of paraplegia, hypertension, ESRD on HD (M/F), recurrent nephrolithiasis and UTIs, chronic after, status post tracheostomy ileostomy presenting from home to the ED on 05/14/2024 with dyspnea and cough that has progressively worsened for about 2 weeks. Patient denies any sick contacts and at baseline is on 3 L of oxygen which he uses at night but noticed that his symptoms worsen, he was saturating lower in the 90s. Patient admitted to the hospital for acute on chronic respiratory failure secondary to bibasilar pneumonia. Nephrology was consulted as patient has end-stage renal disease and is on hemodialysis (Friday/Friday) #ESRD on HD(M/F) The patient has a history of ESRD and is being followed by Social Services Coordinator Dr Jeff. On admission, labs show normal potassium, BUN- 24 Cr- 4.1 Minimal crackles bilaterally and no pitting edema on examination. Patient does report that he is noncompliant with outpatient hemodialysis treatments. Bilateral upper extremity ultrasound negative for any DVT-swelling tad better. Plan: -Continue sevelamer 800 mg 3 times daily with meal, give Kayexalate -Will continue with inpatient dialysis management, next dialysis treatment scheduled for am-patient declined dialysis today -Renally dose all medications -Avoid nephrotoxic medications #Acute on chronic hypoxic respiratory failure #Bibasilar pneumonia #Complex bilateral pleural effusions #Asymptomatic bacteriuria #Chronic indwelling catheter #Hx of ESBL UTI #Hx of Hypertension #Chronic Back Pain #Subcutaneous Abscess On antibiotics. Plan of care discussed with primary team.
[2024-05-17] MEDS: FUROSEMIDE INJ 10 MG/ML 4ML VIAL 40 MG IVP (16:33)
[2024-05-17 21:16] LABS: Anion Gap 7 (7-16); BUN/Creatinine Ratio 10 Ratio (12-20); Blood Urea Nitrogen 45 mg/dL (9-23); Carbon Dioxide 24.3 mMol/L (20.0-31.0); Chloride 100 mMol/L (98-107); Creatinine (Component) 4.6 mg/dL (0.6-1.3); Potassium 5.7 mMol/L (3.4-5.1); Sodium 131 mMol/L (136-145)
[2024-05-17 21:17] LABS: Alanine Aminotransferase < 7 U/L (10-49); Albumin, Serum 3.5 gm/dL (3.5-5.0); Albumin/Globulin Ratio 1.3 (1.2-2.2); Alkaline Phosphatase 135 U/L (46-116); Aspartate Amino Transferase < 10 U/L (0-34); Bilirubin,Total < 0.2 mg/dL (0.3-1.2); Calcium 8.6 mg/dL (8.3-10.6); Globulin 2.7 gm/dL (2.3-3.5); Glucose 157 mg/dL (74-106); Osmolality,Calculated 277 (275-295); Total Protein 6.2 gm/dL (5.7-8.2); eGFR 16 See Note
[2024-05-17] MEDS: SOD POLYSTYRENE SULFON SUSP 15 GM/60 ML BTL PO (21:18)
[2024-05-18] VITALS (31 sets, daily range): BP systolic 105–139; BP diastolic 48–106; PULSE 62–113; RESP 13–96; TEMP 36.2–36.6; O2SAT 96–100
[2024-05-18] MEDS: HYDROmorphone INJ 2 MG/ML VIAL 1 MG IVP ×6 (00:18→22:02)
--- NOTE | 2024-05-18 02:45 | PC.NURSE ---
Notified patient that his pain medication for both narco and dilaudid are not due.
[2024-05-18] MEDS: HYDROcodone/APAP 10/325 TAB PO ×3 (03:27→23:17)
[2024-05-18] MEDS: ACETYLCYSTEINE RT SOL 10% 4 ML NEBU 3 ML INH ×5 (03:42→23:11)
[2024-05-18] MEDS: ALBUTEROL/IPRATROPIUM (Duoneb) RT SOL 3 ML NEBU INH ×5 (03:43→23:11)
[2024-05-18] MEDS: GABAPENTIN 100 MG CAPSULE 300 MG PO ×3 (05:17→22:03)
[2024-05-18] MEDS: LEVOTHYROXINE SODIUM 25 MCG TABLET PO (05:18)
[2024-05-18] MEDS: metroNIDAZOLE/NS 500 MG IVPB 500 MG/100 ML BAG 100 MG IV ×3 (05:18→22:03)
[2024-05-18] MEDS: CYCLObenzaPRINE 5 MG TABLET PO ×2 (05:27→20:13)
[2024-05-18 05:54] LABS: Basophils # (Auto) 0.1 Thou/mm3 (0.0-0.2); Basophils % (Auto) 1 % (0-2.5); Eosinophils # (Auto) 0.2 Thou/mm3 (0.0-0.5); Eosinophils % (Auto) 2 % (0-10); Hematocrit 29.2 % (41.0-53.0); Immature Granulocytes % (Auto) 2 % (0-0); Immature Granulocytes Auto 0.17 Thou/mm3 (0.00-0.00); Lymphocytes # (Auto) 0.8 Thou/mm3 (1.0-4.8); Lymphocytes % (Auto) 11 % (10-50); Mean Corpuscular HGB Conc 30.5 g/dl (31.0-37.0); Mean Corpuscular Hemoglobin 32.1 pg (25.0-35.0); Mean Corpuscular Volume 105 fL (80-100); Monocytes # (Auto) 0.7 Thou/mm3 (0.0-0.8); Monocytes % (Auto) 10 % (0-12); Neutrophils # (Auto) 5.4 Thou/mm3 (1.8-7.7); Neutrophils % (Auto) 74 % (37-80); Nucleated Red Blood Cell % 0 /100 WBC (0); Platelet Count 172 Thou/mm3 (140-440); RDW Standard Deviation 53.7 fL (35.1-43.9); Red Blood Count 2.77 Miln/mm3 (4.50-5.90); White Blood Count 7.4 Thou/mm3 (3.8-10.6)
[2024-05-18 05:57] LABS: Hemoglobin 8.9 g/dL (13.5-16.0)
[2024-05-18 07:12] LABS: Alanine Aminotransferase 9 U/L (10-49); Albumin, Serum 3.7 gm/dL (3.5-5.0); Albumin/Globulin Ratio 1.4 (1.2-2.2); Alkaline Phosphatase 135 U/L (46-116); Anion Gap 7 (7-16); Aspartate Amino Transferase < 10 U/L (0-34); BUN/Creatinine Ratio 11 Ratio (12-20); Bilirubin,Total < 0.2 mg/dL (0.3-1.2); Blood Urea Nitrogen 50 mg/dL (9-23); Calcium 8.7 mg/dL (8.3-10.6); Calcium (Corrected) 8.9 mg/dL (8.5-10.1); Carbon Dioxide 24.1 mMol/L (20.0-31.0); Chloride 101 mMol/L (98-107); Creatinine (Component) 4.7 mg/dL (0.6-1.3); Estimated Creatinine Clearance 30.3 mL/min (>60); Globulin 2.6 gm/dL (2.3-3.5); Glucose 107 mg/dL (74-106); Magnesium 1.8 mg/dL (1.6-2.6); Osmolality,Calculated 277 (275-295); Phosphorous 5.6 mg/dL (2.4-5.1); Potassium 5.6 mMol/L (3.4-5.1); Sodium 132 mMol/L (136-145); Total Protein 6.3 gm/dL (5.7-8.2); eGFR 16 See Note
[2024-05-18] MEDS: SEVELAMER CARBONATE 800 MG TABLET PO ×3 (08:37→16:33)
[2024-05-18] MEDS: amLODIPine BESYLATE 5 MG TABLET PO (08:39)
--- NOTE | 2024-05-18 08:57 | PC.NURSE ---
Patient given Pain Med prior to coming for Tx
--- NOTE | 2024-05-18 09:01 | PC.NURSE ---
No Pain Present at this time after receiving pain med 15 min ago
--- NOTE | 2024-05-18 09:31 | PC.NURSE ---
Received orders from Dr Haines : 1. BFR 375 2. UF Goal 2.0 L
--- NOTE | 2024-05-18 10:35 | PC.SS ---
SS follow up note; Pending cultures and dialysis.
--- NOTE | 2024-05-18 11:47 | PD.NEPHPROG ---
Documentation for date of: 05/18/24 Subjective Subjective Interval history: Mr. Medrano is a 33-year-old male with a past medical history of paraplegia, hypertension, ESRD on HD (M/F), recurrent nephrolithiasis and UTIs, chronic after, status post tracheostomy ileostomy presenting from home to the ED on 05/14/2024 with dyspnea and cough that has progressively worsened for about 2 weeks. Patient denies any sick contacts and at baseline is on 3 L of oxygen which he uses at night but noticed that his symptoms worsen, he was saturating lower in the 90s. Patient admitted to the hospital for acute on chronic respiratory failure secondary to bibasilar pneumonia. Nephrology was consulted as patient has end-stage renal disease and is on hemodialysis (Friday/Friday) ED course: In the ED, patient was afebrile, slightly tachycardic with saturations in the 96%. CBC-WBC 7.4 Hgb 11.1 PLT 186 ESR 62 ABG 7.3 with pCO2 59 NA 130 1K4.1 CL 97 BUN 24 CR 4.1 glucose 121 ALP 196 CRP 2.8 BNP 247. UA showed turbid urine with 2+ protein, 2+ blood, 182 WBCs and 1+ bacteria. Bedside Covid, Influenza A&B and RSV negative. Preliminary read of CTA reviewed bilateral lower lobes consolidation with suspicion for pneumonia and complex bilateral pleural effusions with pleural thickening. Home medications: Pending med reconciliation 05/14/2024: Patient seen and examined at bedside patient receiving hemodialysis treatment today, patient's last hemodialysis was on Friday, patient has increased oxygen requirement, currently on supplemental oxygen 6 L, will continue with hemodialysis today. 05/15/2024: Patient seen and examined at bedside, patient on MedSurg floor, patient received hemodialysis treatment yesterday, had about 1.2 L fluid removed, patient takes sevelamer 2400 p.o. 3 times daily with meals, Cinacalcet and Lokelma daily at home. Patient's phosphorus level 3.7 today, patient will be started on sevelamer 800 mg p.o. 3 times daily with meals, will hold Cinacalcet and Lokelma for now. Patient continues to be on supplemental oxygen for now, was on BiPAP at night. Ultrasound of bilateral upper extremities was negative for any DVT. Will continue to monitor patient, patient will receive next hemodialysis treatment on Friday. 05/16/2024: Patient was seen and examined by the bedside. No acute overnight events. Patient continues to have productive cough. Will proceed with dialysis on Friday. Labs showed sodium 130, porassium 4.8, BUN 23, creatinine 3.9, calcium 8.8, phosphorus 3.7. Continues to use BiPAP overnight. 05/17/2024 patient currently seen in medical floor. Today he declined dialysis. Potassium was elevated. Kayexalate was given. Will plan for dialysis tomorrow. Still having significant cough with the sputum. 05/18/2024 patient currently seen on dialysis. Still complaining of cough with the sputum. Spoke to Dr. Mathew. Will continue with antibiotics. Ultrafiltration 1.5 L in progress. Review of Systems Review of Systems Narrative Review of Systems: GENERAL: Denies fevers/chills or diaphoresis. HEENT: Denies headache or visual/hearing changes. Denies nasal discharge. NEURO: Denies unusual weakness or difficulty speaking. CARDIO: Denies chest pain or palpitations. PULM: Admits shortness of breath and cough GI: Denies abdominal pain, N/V/C/D/reflux/gas, bright red blood per rectum or melena. Reports having BMs. URO: Denies burning/itching/pain/urinary changes. MSK/EXT/SKIN: Denies joint/skeletal/muscle pain, issues/changes in upper or lower extremities, itchiness, or superficial pain. PSYCH: Cooperative, pleasant mood & affect. Exam Vital Signs Temp Pulse Resp BP Pulse Ox O2 Del Method O2 Flow Rate 36.4 C 93 20 110/68 99 Oxy Mask 4 05/18/24 08:11 05/18/24 11:45 05/18/24 08:11 05/18/24 11:45 05/18/24 08:11 05/18/24 07:41 05/18/24 08:11 FiO2 30 05/18/24 04:00 Narrative Exam GENERAL: Patient currently seen on dialysis. 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 Eyes open, symmetrical, & clear CARDIO: No chest pain on palpation. Heart RRR, no obvious murmurs PULM: Rhonchi on auscultation with crackles noted bilaterally. Oxy mask on supplemental O2 GI: Abdomen soft, nondistended, no pain on palpation. Colostomy bag with good output URO/CONSUMER INSIGHT ANALYST:: No further abnormalities noted. Richardson catheter. SKIN/MSK/EXT: Bilateral lower extremities contractures from paraplegia. Right arm swelling improved, painless, AV fistula noted. Objective Labs 05/19/24 05:10 05/19/24 05:10 Labs: Laboratory Results - last 24 hr 05/17/24 05/18/24 20:15 04:42 WBC 7.4 RBC 2.77 L Hgb 8.9 L Hct 29.2 L MCV 105 H MCH 32.1 MCHC 30.5 L RDW Std Deviation 53.7 H Plt Count 172 Neut % (Auto) 74 Lymph % (Auto) 11 [place] % (Auto) 10 Eos % (Auto) 2 Baso % (Auto) 1 Neut # (Auto) 5.4 Lymph # (Auto) 0.[address] [place] # (Auto) 0.7 Eos # (Auto) 0.2 Baso # (Auto) 0.1 Immature Gran # (Auto) 0.17 H Absolute Nucleated RBC 0.00 Immature Gran % 2 H Nucleated RBC % 0 Sodium 131 L 132 L Potassium 5.7 H 5.6 H Chloride 100 101 Carbon Dioxide 24.3 24.1 Anion Gap 7 7 BUN 45 H 50 H Creatinine 4.6 H* 4.7 H* Estim Creat Clear Calc 31.0 L 30.3 L eGFR 16 L 16 L BUN/Creatinine Ratio 10 L 11 L Glucose 157 H D 107 H D Calculated Osmolality 277 277 Calcium 8.6 8.7 Corrected Calcium 9.0 8.9 Phosphorus 5.6 H Magnesium 1.8 Total Bilirubin < 0.2 L < 0.2 L AST < 10 < 10 ALT < 7 L 9 L Alkaline Phosphatase 135 H 135 H Total Protein 6.2 6.3 Albumin 3.5 3.7 Globulin 2.7 2.6 Albumin/Globulin Ratio 1.3 1.4 ABG Interpretation ABG results: 05/14/24 05/14/24 01:43 17:22 ABG pH 7.30 L 7.30 L ABG pCO2 59 H 59 H ABG pO2 97 82 L ABG HCO3 29 H 29 H ABG O2 Saturation 99 H 98 ABG Base Excess 1 2 Assessment & Plan Additional Assessment & Plan Additional Plan: Mr. Medrano is a 33-year-old male with a past medical history of paraplegia, hypertension, ESRD on HD (M/F), recurrent nephrolithiasis and UTIs, chronic after, status post tracheostomy ileostomy presenting from home to the ED on 05/14/2024 with dyspnea and cough that has progressively worsened for about 2 weeks. Patient denies any sick contacts and at baseline is on 3 L of oxygen which he uses at night but noticed that his symptoms worsen, he was saturating lower in the 90s. Patient admitted to the hospital for acute on chronic respiratory failure secondary to bibasilar pneumonia. Nephrology was consulted as patient has end-stage renal disease and is on hemodialysis (Friday/Friday) #ESRD on HD(M/F) The patient has a history of ESRD and is being followed by Staff Development Coordinator Dr Jeff. On admission, labs show normal potassium, BUN- 24 Cr- 4.1 Minimal crackles bilaterally and no pitting edema on examination. Bilateral upper extremity ultrasound negative for any DVT-swelling tad better. Plan: -Continue sevelamer 800 mg 3 times daily with meal, give Kayexalate -Renally dose all medications -Avoid nephrotoxic medications Patient currently seen on dialysis. Tolerating dialysis without any problems. Hemodialysis for 3 hours, 2K, ultrafiltration 1.5 L, Epogen 6000, no heparin ordered. Plan of care discussed with the dialysis nurse. Please see dialysis flowsheet for further details. #Acute on chronic hypoxic respiratory failure #Bibasilar pneumonia #Complex bilateral pleural effusions #Asymptomatic bacteriuria #Chronic indwelling catheter #Hx of ESBL UTI #Hx of Hypertension #Chronic Back Pain #Subcutaneous Abscess On antibiotics. Plan of care discussed with primary team.
[2024-05-18] MEDS: EPOETIN ALFA-EPBX INJ 10,000 UNIT/ML VIAL (ESRD) 10000 UNIT SC (12:28)
[2024-05-18] MEDS: LEVOFLOXACIN/D5W 250MG IVPB 250 MG/50 ML BAG 50 MG IV (12:51)
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
[2024-05-19] VITALS (14 sets, daily range): BP systolic 102–148; BP diastolic 60–94; PULSE 26–118; RESP 12–29; TEMP 36.1–36.4; O2SAT 95–100
[2024-05-19] MEDS: HYDROmorphone INJ 2 MG/ML VIAL 1 MG IVP ×5 (02:15→23:49)
[2024-05-19] MEDS: LEVOTHYROXINE SODIUM 25 MCG TABLET PO (05:19)
[2024-05-19] MEDS: metroNIDAZOLE/NS 500 MG IVPB 500 MG/100 ML BAG 100 MG IV ×3 (05:19→21:24)
[2024-05-19] MEDS: HYDROcodone/APAP 10/325 TAB PO ×3 (05:19→18:18)
[2024-05-19] MEDS: GABAPENTIN 100 MG CAPSULE 300 MG PO ×3 (05:19→21:24)
[2024-05-19 05:48] LABS: Basophils # (Auto) 0.1 Thou/mm3 (0.0-0.2); Basophils % (Auto) 1 % (0-2.5); Eosinophils # (Auto) 0.2 Thou/mm3 (0.0-0.5); Eosinophils % (Auto) 3 % (0-10); Hematocrit 30.9 % (41.0-53.0); Hemoglobin 9.2 g/dL (13.5-16.0); Immature Granulocytes % (Auto) 2 % (0-0); Immature Granulocytes Auto 0.12 Thou/mm3 (0.00-0.00); Lymphocytes # (Auto) 0.8 Thou/mm3 (1.0-4.8); Lymphocytes % (Auto) 11 % (10-50); Mean Corpuscular HGB Conc 29.8 g/dl (31.0-37.0); Mean Corpuscular Hemoglobin 31.7 pg (25.0-35.0); Mean Corpuscular Volume 107 fL (80-100); Monocytes # (Auto) 0.6 Thou/mm3 (0.0-0.8); Monocytes % (Auto) 9 % (0-12); Neutrophils % (Auto) 74 % (37-80); Nucleated Red Blood Cell % 0 /100 WBC (0); Platelet Count 184 Thou/mm3 (140-440); RDW Standard Deviation 55.8 fL (35.1-43.9); White Blood Count 6.8 Thou/mm3 (3.8-10.6)
[2024-05-19 06:13] LABS: Alanine Aminotransferase 8 U/L (10-49); Albumin, Serum 3.8 gm/dL (3.5-5.0); Albumin/Globulin Ratio 1.4 (1.2-2.2); Alkaline Phosphatase 137 U/L (46-116); Anion Gap 6 (7-16); Aspartate Amino Transferase < 8 U/L (0-34); BUN/Creatinine Ratio 9 Ratio (12-20); Bilirubin,Total < 0.2 mg/dL (0.3-1.2); Blood Urea Nitrogen 32 mg/dL (9-23); Calcium 8.9 mg/dL (8.3-10.6); Calcium (Corrected) 9.1 mg/dL (8.5-10.1); Carbon Dioxide 28.1 mMol/L (20.0-31.0); Chloride 99 mMol/L (98-107); Creatinine (Component) 3.5 mg/dL (0.6-1.3); Estimated Creatinine Clearance 40.7 mL/min (>60); Globulin 2.7 gm/dL (2.3-3.5); Glucose 125 mg/dL (74-106); Magnesium 1.8 mg/dL (1.6-2.6); Osmolality,Calculated 274 (275-295); Phosphorous 5.3 mg/dL (2.4-5.1); Potassium 4.9 mMol/L (3.4-5.1); Sodium 133 mMol/L (136-145); Total Protein 6.5 gm/dL (5.7-8.2); eGFR 22 See Note
[2024-05-19] MEDS: ALBUTEROL/IPRATROPIUM (Duoneb) RT SOL 3 ML NEBU INH ×5 (07:30→23:04)
[2024-05-19] MEDS: ACETYLCYSTEINE RT SOL 10% 4 ML NEBU 3 ML INH (07:30)
[2024-05-19] MEDS: FUROSEMIDE INJ 10 MG/ML 4ML VIAL 40 MG IVP (08:16)
[2024-05-19] MEDS: PATIROMER CALCIUM 8.4 GM PACKET (NON-FORM) PO (08:16)
[2024-05-19] MEDS: SEVELAMER CARBONATE 800 MG TABLET PO ×3 (08:16→17:04)
[2024-05-19] MEDS: LEVOFLOXACIN/D5W 250MG IVPB 250 MG/50 ML BAG 50 MG IV (08:16)
[2024-05-19] MEDS: ACETYLCYSTEINE SOL 20% 4 ML NEBU 5 ML INH ×2 (10:26→14:51)
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
--- NOTE | 2024-05-19 14:58 | PC.SS ---
Rounding: Pending Dr. Pelayo consult
--- NOTE | 2024-05-19 15:48 | PC.NURSE ---
Hospitalist Team A notified of blood pressure 184/109 after breathing treatment. MDs will come and assess patient at bedside, no new orders at this time.
--- NOTE | 2024-05-19 17:29 | PD.NEPHPROG ---
Documentation for date of: 05/19/24 Subjective Subjective Interval history: Mr. Medrano is a 33-year-old male with a past medical history of paraplegia, hypertension, ESRD on HD (M/F), recurrent nephrolithiasis and UTIs, chronic after, status post tracheostomy ileostomy presenting from home to the ED on 05/14/2024 with dyspnea and cough that has progressively worsened for about 2 weeks. Patient denies any sick contacts and at baseline is on 3 L of oxygen which he uses at night but noticed that his symptoms worsen, he was saturating lower in the 90s. Patient admitted to the hospital for acute on chronic respiratory failure secondary to bibasilar pneumonia. Nephrology was consulted as patient has end-stage renal disease and is on hemodialysis (Friday/Friday) ED course: In the ED, patient was afebrile, slightly tachycardic with saturations in the 96%. CBC-WBC 7.4 Hgb 11.1 PLT 186 ESR 62 ABG 7.3 with pCO2 59 NA 130 1K4.1 CL 97 BUN 24 CR 4.1 glucose 121 ALP 196 CRP 2.8 BNP 247. UA showed turbid urine with 2+ protein, 2+ blood, 182 WBCs and 1+ bacteria. Bedside Covid, Influenza A&B and RSV negative. Preliminary read of CTA reviewed bilateral lower lobes consolidation with suspicion for pneumonia and complex bilateral pleural effusions with pleural thickening. Home medications: Pending med reconciliation 05/17/2024 patient currently seen in medical floor. Today he declined dialysis. Potassium was elevated. Kayexalate was given. Will plan for dialysis tomorrow. Still having significant cough with the sputum. 05/19/2023 patient currently seen in medical floor. Has significant sleep apnea-on CPAP at nights. Still complaining of cough with the sputum. Will continue with antibiotics. Patient goes to dialysis twice weekly. Will discuss with Dr. Jeff regarding 3 times weekly dialysis as his potassium seems to be high. Review of Systems Review of Systems Narrative Review of Systems: CONSTITUTIONAL: Patient denies any fever, chills. Complaining of fatigue HEENT: Denies any visual disturbances or hearing problems. CARDIOVASCULAR: Patient denies any chest pain, swelling in the lower extremities. PULMONARY: Patient complaining of shortness of breath, cough. GASTROINTESTINAL: Patient denies any abdominal pain, constipation, nausea, vomiting, diarrhea. GENITOURINARY: patient has a Richardson SKIN: 1 decubitus ulcer in the back MUSCULOSKELETAL: In bed NEUROLOGICAL: Patient paraplegic Exam Vital Signs Temp Pulse Resp BP Pulse Ox O2 Del Method O2 Flow Rate 36.4 C 95 22 H 148/94 H 100 Oxy Mask 4 05/19/24 16:00 05/19/24 16:00 05/19/24 16:00 05/19/24 16:00 05/19/24 16:00 05/19/24 16:00 05/19/24 16:00 FiO2 30 05/19/24 16:00 Narrative Exam GENERAL: Patient currently seen in medical floor NEURO: HR INTERNSHIP grossly intact HEENT: Moist mucosa. Eyes open, symmetrical, & clear CARDIO: No chest pain on palpation. Heart RRR, no obvious murmurs PULM: Rhonchi on auscultation with crackles noted bilaterally. Oxy mask on supplemental O2 GI: Abdomen soft, nondistended, no pain on palpation. Colostomy bag with good output URO/CORONER/MEDICAL EXAMINER:: No further abnormalities noted. Richardson catheter. SKIN/MSK/EXT: Bilateral lower extremities contractures from paraplegia. Right arm swelling improved, painless, AV fistula noted. Pressure ulcer in the back Objective Labs 05/20/24 05:06 05/20/24 05:06 Labs: Laboratory Results - last 24 hr 05/19/24 05:10 WBC 6.8 RBC 2.90 L Hgb 9.2 L Hct 30.9 L MCV 107 H MCH 31.7 MCHC 29.8 L RDW Std Deviation 55.8 H Plt Count 184 Neut % (Auto) 74 Lymph % (Auto) 11 [place] % (Auto) 9 Eos % (Auto) 3 Baso % (Auto) 1 Neut # (Auto) 5.0 Lymph # (Auto) 0.8 L [place] # (Auto) 0.6 Eos # (Auto) 0.2 Baso # (Auto) 0.1 Immature Gran # (Auto) 0.12 H Absolute Nucleated RBC 0.00 Immature Gran % 2 H Nucleated RBC % 0 Sodium 133 L Potassium 4.9 D Chloride 99 Carbon Dioxide 28.1 Anion Gap 6 L BUN 32 H Creatinine 3.5 H D Estim Creat Clear Calc 40.7 L eGFR 22 L BUN/Creatinine Ratio 9 L Glucose 125 H Calculated Osmolality 274 L Calcium 8.9 Corrected Calcium 9.1 Phosphorus 5.3 H Magnesium 1.8 Total Bilirubin < 0.2 L AST < 8 ALT 8 L Alkaline Phosphatase 137 H Total Protein 6.5 Albumin 3.8 Globulin 2.7 Albumin/Globulin Ratio 1.4 ABG Interpretation ABG results: 05/14/24 05/14/24 01:43 17:22 ABG pH 7.30 L 7.30 L ABG pCO2 59 H 59 H ABG pO2 97 82 L ABG HCO3 29 H 29 H ABG O2 Saturation 99 H 98 ABG Base Excess 1 2 Assessment & Plan Additional Assessment & Plan Additional Plan: Mr. Medrano is a 33-year-old male with a past medical history of paraplegia, hypertension, ESRD on HD (M/F), recurrent nephrolithiasis and UTIs, chronic after, status post tracheostomy ileostomy presenting from home to the ED on 05/14/2024 with dyspnea and cough that has progressively worsened for about 2 weeks. Patient denies any sick contacts and at baseline is on 3 L of oxygen which he uses at night but noticed that his symptoms worsen, he was saturating lower in the 90s. Patient admitted to the hospital for acute on chronic respiratory failure secondary to bibasilar pneumonia. Nephrology was consulted as patient has end-stage renal disease and is on hemodialysis (Friday/Friday) #ESRD on HD(M/F) The patient has a history of ESRD and is being followed by [facility] Dr Jeff. On admission, labs show normal potassium, BUN- 24 Cr- 4.1 Minimal crackles bilaterally and no pitting edema on examination. Bilateral upper extremity ultrasound negative for any DVT-swelling tad better. Plan: -Continue sevelamer 800 mg 3 times daily with meal, resume potassium binders -Renally dose all medications -Avoid nephrotoxic medications Patient wants only twice weekly dialysis. #Acute on chronic hypoxic respiratory failure #Bibasilar pneumonia #Complex bilateral pleural effusions #Asymptomatic bacteriuria #Chronic indwelling catheter #Hx of ESBL UTI #Hx of Hypertension #Chronic Back Pain #Subcutaneous Abscess On antibiotics. Plan of care discussed with primary team.
[2024-05-19] MEDS: CYCLObenzaPRINE 5 MG TABLET PO (19:39)
[2024-05-20] VITALS (17 sets, daily range): BP systolic 108–141; BP diastolic 73–94; PULSE 84–117; RESP 18–25; TEMP 36–36.7; O2SAT 95–100
[2024-05-20] MEDS: ALBUTEROL/IPRATROPIUM (Duoneb) RT SOL 3 ML NEBU INH ×6 (03:26→22:40)
[2024-05-20] MEDS: GABAPENTIN 100 MG CAPSULE 300 MG PO (05:21)
[2024-05-20] MEDS: LEVOTHYROXINE SODIUM 25 MCG TABLET PO (05:21)
[2024-05-20] MEDS: HYDROmorphone INJ 2 MG/ML VIAL 1 MG IVP ×2 (05:30→20:10)
[2024-05-20 05:56] LABS: Basophils % (Auto) 0 % (0-2.5); Eosinophils # (Auto) 0.2 Thou/mm3 (0.0-0.5); Eosinophils % (Auto) 2 % (0-10); Hematocrit 34.6 % (41.0-53.0); Hemoglobin 10.3 g/dL (13.5-16.0); Immature Granulocytes % (Auto) 1 % (0-0); Immature Granulocytes Auto 0.13 Thou/mm3 (0.00-0.00); Lymphocytes # (Auto) 0.8 Thou/mm3 (1.0-4.8); Lymphocytes % (Auto) 8 % (10-50); Mean Corpuscular HGB Conc 29.8 g/dl (31.0-37.0); Mean Corpuscular Hemoglobin 31.6 pg (25.0-35.0); Mean Corpuscular Volume 106 fL (80-100); Monocytes # (Auto) 0.9 Thou/mm3 (0.0-0.8); Monocytes % (Auto) 9 % (0-12); Neutrophils % (Auto) 80 % (37-80); Nucleated Red Blood Cell % 0 /100 WBC (0); Platelet Count 180 Thou/mm3 (140-440); RDW Standard Deviation 55.6 fL (35.1-43.9); Red Blood Count 3.26 Miln/mm3 (4.50-5.90); White Blood Count 10.1 Thou/mm3 (3.8-10.6)
[2024-05-20 07:01] LABS: Alanine Aminotransferase 8 U/L (10-49); Albumin, Serum 3.9 gm/dL (3.5-5.0); Albumin/Globulin Ratio 1.4 (1.2-2.2); Alkaline Phosphatase 137 U/L (46-116); Anion Gap 7 (7-16); Aspartate Amino Transferase 10 U/L (0-34); BUN/Creatinine Ratio 10 Ratio (12-20); Bilirubin,Total 0.2 mg/dL (0.3-1.2); Blood Urea Nitrogen 37 mg/dL (9-23); Calcium 10.5 mg/dL (8.3-10.6); Calcium (Corrected) 10.6 mg/dL (8.5-10.1); Carbon Dioxide 24.8 mMol/L (20.0-31.0); Chloride 100 mMol/L (98-107); Creatinine (Component) 3.8 mg/dL (0.6-1.3); Estimated Creatinine Clearance 37.5 mL/min (>60); Globulin 2.8 gm/dL (2.3-3.5); Glucose 110 mg/dL (74-106); Magnesium 1.9 mg/dL (1.6-2.6); Osmolality,Calculated 274 (275-295); Potassium 5.6 mMol/L (3.4-5.1); Sodium 132 mMol/L (136-145); Total Protein 6.7 gm/dL (5.7-8.2); eGFR 20 See Note
[2024-05-20] MEDS: metroNIDAZOLE/NS 500 MG IVPB 500 MG/100 ML BAG 100 MG IV ×3 (07:15→22:00)
[2024-05-20 07:23] LABS: Phosphorous 6.3 mg/dL (2.4-5.1)
[2024-05-20] MEDS: amLODIPine BESYLATE 5 MG TABLET PO (08:14)
[2024-05-20] MEDS: LEVOFLOXACIN/D5W 250MG IVPB 250 MG/50 ML BAG 50 MG IV (08:15)
[2024-05-20] MEDS: SEVELAMER CARBONATE 800 MG TABLET PO ×3 (08:15→17:51)
[2024-05-20] MEDS: FUROSEMIDE INJ 10 MG/ML 4ML VIAL 40 MG IVP (08:15)
[2024-05-20] MEDS: PATIROMER CALCIUM 8.4 GM PACKET (NON-FORM) PO (08:15)
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
[2024-05-20] MEDS: GABAPENTIN 300 MG CAPSULE PO ×2 (14:19→22:00)
[2024-05-20] MEDS: SOD POLYSTYRENE SULFON SUSP 15 GM/60 ML BTL 30 GM PO (14:19)
--- NOTE | 2024-05-20 15:07 | PC.SS ---
SS follow up notes; Pending Dr. Pelayo's rec's and getting Dialysis tomorrow.
--- NOTE | 2024-05-20 17:34 | PC.NURSE ---
Call made to MD about patient' s demands for pain medication, Rn has concerns patient is extremely sedated and does not feel this would be a safe administration, patient seen by MD at bedside, changes to pain medication frequency from Q4 to Q6. Education to patient on side effect of over medication. Patient continuing to angrily demand medication, but will fall asleep if unprompted, patient has remove cardiac rehabilitation program director leads and is refusing replacement.
--- NOTE | 2024-05-20 19:36 | PC.NURSE ---
Pt refusing police magistrate, pt has been off the c monitor for over an hr. Dr. Putnam was made aware. No new orders for pt at this time.
--- NOTE | 2024-05-20 19:57 | ESPR_ITS ---
Documentation for date of: 05/20/24 Subjective Subjective Interval history: Mr. Medrano is a 33-year-old male with a past medical history of paraplegia, hypertension, ESRD on HD (M/F), recurrent nephrolithiasis and UTIs, chronic after, status post tracheostomy ileostomy presenting from home to the ED on 05/14/2024 with dyspnea and cough that has progressively worsened for about 2 weeks. Patient denies any sick contacts and at baseline is on 3 L of oxygen which he uses at night but noticed that his symptoms worsen, he was saturating lower in the 90s. Patient admitted to the hospital for acute on chronic respiratory failure secondary to bibasilar pneumonia. Nephrology was consulted as patient has end- stage renal disease and is on hemodialysis (Friday/Friday) ED course: In the ED, patient was afebrile, slightly tachycardic with saturations in the 96%. CBC-WBC 7.4 Hgb 11.1 PLT 186 ESR 62 ABG 7.3 with pCO2 59 NA 130 1K4.1 CL 97 BUN 24 CR 4.1 glucose 121 ALP 196 CRP 2.8 BNP 247. UA showed turbid urine with 2+ protein, 2+ blood, 182 WBCs and 1+ bacteria. Bedside Covid, Influenza A&B and RSV negative. Preliminary read of CTA reviewed bilateral lower lobes consolidation with suspicion for pneumonia and complex bilateral pleural effusions with pleural thickening. Home medications: Pending med reconciliation 05/14/2024: Patient seen and examined at bedside patient receiving hemodialysis treatment today, patient's last hemodialysis was on Friday, patient has increased oxygen requirement, currently on supplemental oxygen 6 L, will continue with hemodialysis today. 05/15/2024: Patient seen and examined at bedside, patient on MedSurg floor, patient received hemodialysis treatment yesterday, had about 1.2 L fluid removed, patient takes sevelamer 2400 p.o. 3 times daily with meals, Cinacalcet and Lokelma daily at home. Patient's phosphorus level 3.7 today, patient will be started on sevelamer 800 mg p.o. 3 times daily with meals, will hold Cinacalcet and Lokelma for now. Patient continues to be on supplemental oxygen for now, was on BiPAP at night. Ultrasound of bilateral upper extremities was negative for any DVT. Will continue to monitor patient, patient will receive next hemodialysis treatment on Friday. 05/16/2024: Patient was seen and examined by the bedside. No acute overnight events. Patient continues to have productive cough. Will proceed with dialysis on Friday. Labs showed sodium 130, porassium 4.8, BUN 23, creatinine 3.9, calcium 8.8, phosphorus 3.7. Continues to use BiPAP overnight. 05/17/2024 patient currently seen in medical floor. Today he declined dialysis. Potassium was elevated. Kayexalate was given. Will plan for dialysis tomorrow. Still having significant cough with the sputum. 05/20/2023 patient currently seen in medical floor. Still complaining of cough with the sputum. Potassium seems to be elevated. Did not want dialysis today. Spoke to primary team-resume a potassium binders. Will continue with antibiotics. Next dialysis scheduled for tomorrow. Labs, medications reviewed. Patient uses CPAP at night. Noted to have severe sleep apnea. Review of Systems Review of Systems Narrative Review of Systems: CONSTITUTIONAL: Patient denies any fever, chills. Complaining of fatigue HEENT: Denies any visual disturbances or hearing problems. CARDIOVASCULAR: Patient denies any chest pain, swelling in the lower extremities. PULMONARY: Patient complaining of shortness of breath, cough. GASTROINTESTINAL: Patient denies any abdominal pain, constipation, nausea, vomiting, diarrhea. GENITOURINARY: patient has a Richardson SKIN: Pressure ulcer in the back MUSCULOSKELETAL: In bed NEUROLOGICAL: Patient paraplegic Exam Vital Signs Temp Pulse Resp BP Pulse Ox O2 Del Method O2 Flow Rate 36.6 C 115 H 22 H 122/79 99 Nasal Cannula 5 05/20/24 12:00 05/20/24 19:38 05/20/24 19:38 05/20/24 12:05/20/24 19:38 05/20/24 12:00 05/20/24 19:38 FiO2 30 05/19/24 16:00 Narrative Exam GENERAL: Patient currently seen in medical floor NEURO: BELT SANDER STONE grossly intact HEENT: Moist mucosa. Eyes open, symmetrical, & clear CARDIO: No chest pain on palpation. Heart RRR, no obvious murmurs PULM: Rhonchi on auscultation with crackles noted bilaterally. Oxy mask on supplemental O2 GI: Abdomen soft, nondistended, no pain on palpation. Colostomy bag with good output URO/AMMUNITION STORAGE SUPERINTENDENT:: No further abnormalities noted. Richardson catheter. SKIN/MSK/EXT: Bilateral lower extremities contractures from paraplegia. Right arm swelling improved, painless, AV fistula noted. Pressure ulcer in the back Objective Labs 05/20/24 05:06 05/20/24 05:06 Labs: Laboratory Results - last 24 hr 05/20/24 05:06 WBC 10.1 D RBC 3.26 L Hgb 10.3 L Hct 34.6 L MCV 106 H MCH 31.6 MCHC 29.8 L RDW Std Deviation 55.6 H Plt Count 180 Neut % (Auto) 80 Lymph % (Auto) 8 L [place] % (Auto) 9 Eos % (Auto) 2 Baso % (Auto) 0 Neut # (Auto) 8.0 H Lymph # (Auto) 0.8 L [place] # (Auto) 0.9 H Eos # (Auto) 0.2 Baso # (Auto) 0.0 Immature Gran # (Auto) 0.13 H Absolute Nucleated RBC 0.00 Immature Gran % 1 H Nucleated RBC % 0 Sodium 132 L Potassium 5.6 H D Chloride 100 Carbon Dioxide 24.8 Anion Gap 7 BUN 37 H Creatinine 3.8 H Estim Creat Clear Calc 37.5 L eGFR 20 L BUN/Creatinine Ratio 10 L Glucose 110 H Calculated Osmolality 274 L Calcium 10.5 D Corrected Calcium 10.6 H D Phosphorus 6.3 H Magnesium 1.9 Total Bilirubin 0.2 L AST 10 ALT 8 L Alkaline Phosphatase 137 H Total Protein 6.7 Albumin 3.9 Globulin 2.8 Albumin/Globulin Ratio 1.4 ABG Interpretation ABG results: 05/14/24 05/14/24 01:43 17:22 ABG pH 7.30 L 7.30 L ABG pCO2 59 H 59 H ABG pO2 97 82 L ABG HCO3 29 H 29 H ABG O2 Saturation 99 H 98 ABG Base Excess 1 2 Assessment & Plan Additional Assessment & Plan Additional Plan: Mr. Medrano is a 33-year-old male with a past medical history of paraplegia, hypertension, ESRD on HD (M/F), recurrent nephrolithiasis and UTIs, chronic after, status post tracheostomy ileostomy presenting from home to the ED on 05/14/2024 with dyspnea and cough that has progressively worsened for about 2 weeks. Patient denies any sick contacts and at baseline is on 3 L of oxygen which he uses at night but noticed that his symptoms worsen, he was saturating lower in the 90s. Patient admitted to the hospital for acute on chronic respiratory failure secondary to bibasilar pneumonia. Nephrology was consulted as patient has end-stage renal disease and is on hemodialysis (Friday/Friday) #ESRD on HD(M/F) The patient has a history of ESRD and is being followed by Professional Programmer Analyst Dr Jeff. On admission, labs show normal potassium, BUN- 24 Cr- 4.1 Minimal crackles bilaterally and no pitting edema on examination. Bilateral upper extremity ultrasound negative for any DVT-swelling tad better. Plan: -Continue sevelamer 800 mg 3 times daily with meal, continue potassium binders -Renally dose all medications -Avoid nephrotoxic medications Did discuss with patient regarding 3 times weekly dialysis due to elevated phosphorus, potassium. #Acute on chronic hypoxic respiratory failure #Bibasilar pneumonia #Complex bilateral pleural effusions #Asymptomatic bacteriuria #Chronic indwelling catheter #Hx of ESBL UTI #Hx of Hypertension #Chronic Back Pain #Subcutaneous Abscess On antibiotics. Plan of care discussed with primary team. Requesting [id number] pain medication. Per RN patient seems to have some anger issues.
[2024-05-20] MEDS: HYDROcodone/APAP 5/325 TABLET 1 TAB PO (22:00)
[2024-05-20] MEDS: CYCLObenzaPRINE 5 MG TABLET PO (22:58)
[2024-05-21] VITALS (27 sets, daily range): BP systolic 103–151; BP diastolic 51–99; PULSE 88–117; RESP 14–38; TEMP 36.1–36.5; O2SAT 92–100
[2024-05-21] MEDS: ALBUTEROL/IPRATROPIUM (Duoneb) RT SOL 3 ML NEBU INH ×5 (03:07→19:40)
[2024-05-21] MEDS: HYDROmorphone INJ 2 MG/ML VIAL 1 MG IVP ×3 (04:43→18:09)
[2024-05-21] MEDS: metroNIDAZOLE/NS 500 MG IVPB 500 MG/100 ML BAG 100 MG IV (06:01)
[2024-05-21] MEDS: LEVOTHYROXINE SODIUM 25 MCG TABLET PO (06:02)
[2024-05-21] MEDS: HYDROcodone/APAP 5/325 TABLET 1 TAB PO ×3 (06:02→17:07)
[2024-05-21] MEDS: GABAPENTIN 300 MG CAPSULE PO ×2 (06:02→13:14)
[2024-05-21] MEDS: EPOETIN ALFA-EPBX INJ 10,000 UNIT/ML VIAL (NON-ESRD) 10000 UNIT SC (09:23)
--- NOTE | 2024-05-21 09:32 | PD.IDPROG ---
Subjective Subjective Interval history: recently here for pneumonia. treated. had sacral abscess drained by surgery, drainage is the primary intervention. has been on levaquin and flagyl long enought that the flagyl is slated for renewal has resp distress. states trach was recent, but it does not seem that way Exam Vital Signs Temp Pulse Resp BP Pulse Ox O2 Del Method O2 Flow Rate 97.7 F 113 H 18 120/57 L 95 Nasal Cannula 4 05/21/24 07:31 05/21/24 09:30 05/21/24 07:31 05/21/24 09:30 05/21/24 07:31 05/21/24 04:00 05/21/24 07:31 FiO2 50 05/21/24 06:25 Narrative Exam on O2. in hd. has fistula so hd is long standing. 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 over rx and over culturing likely causes of this phenomenon ckd 5 obesity, bmi 32.2 noted multiple allergies will see friday if he remains in house. if stable, then you can monitor him as outpt. Time Spent With Patient Time: Total time spent is greater than 50% in coordination of care (as documented) at patient's floor/unit and/or counseling patient:
[2024-05-21 09:42] LABS: Basophils % (Auto) 0 % (0-2.5); Eosinophils # (Auto) 0.1 Thou/mm3 (0.0-0.5); Eosinophils % (Auto) 1 % (0-10); Hematocrit 29.4 % (41.0-53.0); Immature Granulocytes % (Auto) 1 % (0-0); Immature Granulocytes Auto 0.12 Thou/mm3 (0.00-0.00); Lymphocytes # (Auto) 0.4 Thou/mm3 (1.0-4.8); Lymphocytes % (Auto) 4 % (10-50); Mean Corpuscular HGB Conc 30.6 g/dl (31.0-37.0); Mean Corpuscular Volume 105 fL (80-100); Monocytes # (Auto) 1.1 Thou/mm3 (0.0-0.8); Monocytes % (Auto) 12 % (0-12); Neutrophils # (Auto) 8.1 Thou/mm3 (1.8-7.7); Neutrophils % (Auto) 82 % (37-80); Nucleated Red Blood Cell % 0 /100 WBC (0); Platelet Count 160 Thou/mm3 (140-440); RDW Standard Deviation 53.8 fL (35.1-43.9); Red Blood Count 2.81 Miln/mm3 (4.50-5.90); White Blood Count 9.9 Thou/mm3 (3.8-10.6)
[2024-05-21 10:22] LABS: Alanine Aminotransferase < 7 U/L (10-49); Albumin, Serum 3.9 gm/dL (3.5-5.0); Albumin/Globulin Ratio 1.5 (1.2-2.2); Alkaline Phosphatase 110 U/L (46-116); Anion Gap 6 (7-16); Aspartate Amino Transferase < 8 U/L (0-34); BUN/Creatinine Ratio 10 Ratio (12-20); Bilirubin,Total 0.2 mg/dL (0.3-1.2); Blood Urea Nitrogen 28 mg/dL (9-23); Calcium 8.8 mg/dL (8.3-10.6); Calcium (Corrected) 8.9 mg/dL (8.5-10.1); Chloride 100 mMol/L (98-107); Creatinine (Component) 2.8 mg/dL (0.6-1.3); Estimated Creatinine Clearance 50.9 mL/min (>60); Globulin 2.6 gm/dL (2.3-3.5); Glucose 156 mg/dL (74-106); Magnesium 1.6 mg/dL (1.6-2.6); Osmolality,Calculated 276 (275-295); Phosphorous 3.5 mg/dL (2.4-5.1); Potassium 4.1 mMol/L (3.4-5.1); Sodium 134 mMol/L (136-145); Total Protein 6.5 gm/dL (5.7-8.2); eGFR 29 See Note
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
--- NOTE | 2024-05-21 10:31 | PD.NEPHPROG ---
Documentation for date of: 05/21/24 Subjective Subjective Interval history: Mr. Medrano is a 33-year-old male with a past medical history of paraplegia, hypertension, ESRD on HD (M/F), recurrent nephrolithiasis and UTIs, chronic after, status post tracheostomy ileostomy presenting from home to the ED on 05/14/2024 with dyspnea and cough that has progressively worsened for about 2 weeks. Patient denies any sick contacts and at baseline is on 3 L of oxygen which he uses at night but noticed that his symptoms worsen, he was saturating lower in the 90s. Patient admitted to the hospital for acute on chronic respiratory failure secondary to bibasilar pneumonia. Nephrology was consulted as patient has end-stage renal disease and is on hemodialysis (Friday/Friday) ED course: In the ED, patient was afebrile, slightly tachycardic with saturations in the 96%. CBC-WBC 7.4 Hgb 11.1 PLT 186 ESR 62 ABG 7.3 with pCO2 59 NA 130 1K4.1 CL 97 BUN 24 CR 4.1 glucose 121 ALP 196 CRP 2.8 BNP 247. UA showed turbid urine with 2+ protein, 2+ blood, 182 WBCs and 1+ bacteria. Bedside Covid, Influenza A&B and RSV negative. Preliminary read of CTA reviewed bilateral lower lobes consolidation with suspicion for pneumonia and complex bilateral pleural effusions with pleural thickening. Home medications: Pending med reconciliation 05/14/2024: Patient seen and examined at bedside patient receiving hemodialysis treatment today, patient's last hemodialysis was on Friday, patient has increased oxygen requirement, currently on supplemental oxygen 6 L, will continue with hemodialysis today. 05/15/2024: Patient seen and examined at bedside, patient on MedSurg floor, patient received hemodialysis treatment yesterday, had about 1.2 L fluid removed, patient takes sevelamer 2400 p.o. 3 times daily with meals, Cinacalcet and Lokelma daily at home. Patient's phosphorus level 3.7 today, patient will be started on sevelamer 800 mg p.o. 3 times daily with meals, will hold Cinacalcet and Lokelma for now. Patient continues to be on supplemental oxygen for now, was on BiPAP at night. Ultrasound of bilateral upper extremities was negative for any DVT. Will continue to monitor patient, patient will receive next hemodialysis treatment on Friday. 05/16/2024: Patient was seen and examined by the bedside. No acute overnight events. Patient continues to have productive cough. Will proceed with dialysis on Friday. Labs showed sodium 130, porassium 4.8, BUN 23, creatinine 3.9, calcium 8.8, phosphorus 3.7. Continues to use BiPAP overnight. 05/17/2024 patient currently seen in medical floor. Today he declined dialysis. Potassium was elevated. Kayexalate was given. Will plan for dialysis tomorrow. Still having significant cough with the sputum. 05/20/2024 patient currently seen in medical floor. Still complaining of cough with the sputum. Potassium seems to be elevated. Did not want dialysis today. Spoke to primary team-resume a potassium binders. Will continue with antibiotics. Next dialysis scheduled for tomorrow. Labs, medications reviewed. Patient uses CPAP at night. Noted to have severe sleep apnea. 05/21/2024 patient currently seen on dialysis. Still having significant coughing. Possible discharge postdialysis. Review of Systems Review of Systems Narrative Review of Systems: CONSTITUTIONAL: Patient denies any fever, chills. Complaining of fatigue HEENT: Denies any visual disturbances or hearing problems. CARDIOVASCULAR: Patient denies any chest pain, swelling in the lower extremities. PULMONARY: Patient complaining of shortness of breath, cough. GASTROINTESTINAL: Patient denies any abdominal pain, constipation, nausea, vomiting, diarrhea. GENITOURINARY: patient has a Richardson SKIN: Pressure ulcer in the back MUSCULOSKELETAL: In bed NEUROLOGICAL: Patient paraplegic Exam Vital Signs Temp Pulse Resp BP Pulse Ox O2 Del Method O2 Flow Rate 36.5 C 105 H 24 H 127/72 99 Nasal Cannula 5 05/21/24 07:31 05/21/24 10:15 05/21/24 10:10 05/21/24 10:15 05/21/24 10:10 05/21/24 04:00 05/21/24 10:10 FiO2 50 05/21/24 06:25 Narrative Exam GENERAL: Patient currently seen on dialysis NEURO: SUPERINTENDENT GAS DISTRIBUTION grossly intact HEENT: Moist mucosa. Eyes open, symmetrical, & clear CARDIO: No chest pain on palpation. Heart RRR, no obvious murmurs PULM: Rhonchi on auscultation with crackles noted bilaterally. Oxy mask on supplemental O2 GI: Abdomen soft, nondistended, no pain on palpation. Colostomy bag with good output URO/SYSTEM ADMINISTRATION ADVISOR:: No further abnormalities noted. Richardson catheter. SKIN/MSK/EXT: Bilateral lower extremities contractures from paraplegia. Right arm swelling improved, painless, AV fistula noted. Pressure ulcer in the back Objective Labs 05/21/24 07:49 05/21/24 07:49 Labs: Laboratory Results - last 24 hr 05/21/24 07:49 WBC 9.9 RBC 2.81 L Hgb 9.0 L Hct 29.4 L MCV 105 H MCH 32.0 MCHC 30.6 L RDW Std Deviation 53.8 H Plt Count 160 Neut % (Auto) 82 H Lymph % (Auto) 4 L [place] % (Auto) 12 Eos % (Auto) 1 Baso % (Auto) 0 Neut # (Auto) 8.1 H Lymph # (Auto) 0.4 L [place] # (Auto) 1.1 H Eos # (Auto) 0.1 Baso # (Auto) 0.0 Immature Gran # (Auto) 0.12 H Absolute Nucleated RBC 0.00 Immature Gran % 1 H Nucleated RBC % 0 Sodium 134 L Potassium 4.1 D Chloride 100 Carbon Dioxide 28.0 Anion Gap 6 L BUN 28 H Creatinine 2.8 H D Estim Creat Clear Calc 50.9 L eGFR 29 L BUN/Creatinine Ratio 10 L Glucose 156 H Calculated Osmolality 276 Calcium 8.8 D Corrected Calcium 8.9 D Phosphorus 3.5 Magnesium 1.6 Total Bilirubin 0.2 L AST < 8 ALT < 7 L Alkaline Phosphatase 110 D Total Protein 6.5 Albumin 3.9 Globulin 2.6 Albumin/Globulin Ratio 1.5 ABG Interpretation ABG results: 05/14/24 05/14/24 01:43 17:22 ABG pH 7.30 L 7.30 L ABG pCO2 59 H 59 H ABG pO2 97 82 L ABG HCO3 29 H 29 H ABG O2 Saturation 99 H 98 ABG Base Excess 1 2 Assessment & Plan Additional Assessment & Plan Additional Plan: Mr. Medrano is a 33-year-old male with a past medical history of paraplegia, hypertension, ESRD on HD (M/F), recurrent nephrolithiasis and UTIs, chronic after, status post tracheostomy ileostomy presenting from home to the ED on 05/14/2024 with dyspnea and cough that has progressively worsened for about 2 weeks. Patient denies any sick contacts and at baseline is on 3 L of oxygen which he uses at night but noticed that his symptoms worsen, he was saturating lower in the 90s. Patient admitted to the hospital for acute on chronic respiratory failure secondary to bibasilar pneumonia. Nephrology was consulted as patient has end-stage renal disease and is on hemodialysis (Friday/Friday) #ESRD on HD(M/F) The patient has a history of ESRD and is being followed by [facility] Dr Jeff. On admission, labs show normal potassium, BUN- 24 Cr- 4.1 Minimal crackles bilaterally and no pitting edema on examination. Bilateral upper extremity ultrasound negative for any DVT-swelling tad better. Plan: -Continue sevelamer 800 mg 3 times daily with meal, continue potassium binders -Renally dose all medications -Avoid nephrotoxic medications Did discuss with patient regarding 3 times weekly dialysis due to elevated phosphorus, potassium. Patient currently seen on dialysis. Tolerating dialysis without any problems. Hemodialysis for 3 hours, 2K, ultrafiltration 2-3 L, Epogen 6000, no heparin ordered. Plan of care discussed with the dialysis nurse. Please see dialysis flowsheet for further details. #Acute on chronic hypoxic respiratory failure #Bibasilar pneumonia #Complex bilateral pleural effusions #Asymptomatic bacteriuria #Chronic indwelling catheter #Hx of ESBL UTI #Hx of Hypertension #Chronic Back Pain #Subcutaneous Abscess On antibiotics. Plan of care discussed with primary team. Requesting [id number] pain medication. Per RN patient seems to have some anger issues. Quality - progress note Quality Measures Quality Measures: VTE prophylaxis Reason for Continued Stay Reason for Continued Stay: further monitoring
[2024-05-21 12:23] LABS: Quantiferon-TB* See Sep Rpt
--- NOTE | 2024-05-21 12:50 | PC.NURSE ---
Dialysis completed for 3 hrs, tolerated well. A/O x4, pt very sleepy. Respiration even and unlabored sating at 97% on O2 at 5L/min via oxy mask. Able to removed 1100 ml of fluid net. Post tx BP 136/77, HR 100, Temp 97.5. Pt back in room 377. Call light within reached. Pressure dressing on right upper arm AV fistula clean/dry/intact. No bleeding noted. Pressure dressing to be remove at 1300. Report given to Tala AQUINO
[2024-05-21] MEDS: LEVOFLOXACIN/D5W 250MG IVPB 250 MG/50 ML BAG 50 MG IV (12:59)
[2024-05-21] MEDS: FUROSEMIDE INJ 10 MG/ML 4ML VIAL 40 MG IVP (12:59)
[2024-05-21] MEDS: amLODIPine BESYLATE 5 MG TABLET PO (13:00)
[2024-05-21] MEDS: SEVELAMER CARBONATE 800 MG TABLET PO ×2 (13:00→17:14)
--- NOTE | 2024-05-21 13:10 | ESCONSULT_ITS ---
RE: KENNEDY LEDEZMA : 1990 DATE OF CONSULTATION: 05/21/2024 REFERRING PHYSICIAN: DR. Haines and Dr. Fuller. REASON FOR CONSULTATION: Respiratory distress. HISTORY OF PRESENT ILLNESS: The patient unfortunately is a 33-year-old man who suggests his prior trach was 2 weeks ago, but I cannot find evidence of that. He does have a reddish scar and is quite short of breath. His blood gases show significant CO2 retention, but that may be also part of his overall condition. He is on dialysis apparently due to some chronic kidney disease associated with recurrent renal stone disease. Imaging of the chest, abdomen, and pelvis suggests bilateral hilar adenopathy with multiple renal stones. I am going to go ahead and give him some treatment for valley fever and adenopathy and do a TB test as well because of his dialysis needs, but note that hd pts have regular ppds done already. We will check on him again Friday. I am also stopping his Flagyl, leave him on PO Levaquin alone for now. DT: 10:53:25 TT: 12:45:00 Ref: [id number] - TID: [id number] MTDD
[2024-05-21] MEDS: CYCLObenzaPRINE 5 MG TABLET PO (13:14)
--- NOTE | 2024-05-21 14:15 | PC.SS ---
Addendum entered by Radha Ndiaye 05/21/24 15:58: SS follow up note; SS received a call from [facility] from [facility] setting up transportation for 1900. SS notified patient as well as Yovana who will notify Patients nurse Tala. Original Note: SS follow up notes; set up transportation with [facility], Reference # [id number].
--- NOTE | 2024-05-21 20:07 | PC.NURSE ---
Pt went home with assistance of ambulance personnel per stretcher, pt is alert and oriented, no C/O of pain at this time.
[2024-05-22 14:44] LABS: Cocci Serology, IgM Negative (Negative)
--- NOTE | 2024-05-22 17:45 | PC.CM ---
Patient did not have a preference for a home health agency so I sent to all agencies.
--- NOTE | 2024-05-24 08:16 | PC.CC ---
Addendum entered by Violeta Marquez RN 05/26/24 09:07: [facility] accepted patient. Start of care date set for 05/27. Original Note: Patient is booked with [facility] pending SOC
[2024-05-24 13:54] LABS: Cocci Serology, IgG Negative (Negative)
== END 2024-05-21 20:07 | disposition home health service (06) | DRG 189 ==
LOC: SERX 05-14 06:30 → SERHOLD 05-14 06:32 → S3SX 05-14 18:31
PROVIDERS: Internal Medicine Infectious Disease; Student in an Organized Health Care Education/Training Program; Admitting Provider Student in an Organized Health Care Education/Training Program; Emergency Provider Emergency Medicine; PCP Family Medicine; Visit Provider Student in an Organized Health Care Education/Training Program
DX: J96.21 Acute and chronic respiratory failure with hypoxia (principal); N18.6 End stage renal disease; J18.9 Pneumonia, unspecified organism; I12.0 Hypertensive chronic kidney disease with stage 5 chronic kidney disease or end stage renal disease; G82.20 Paraplegia, unspecified; J90 Pleural effusion, not elsewhere classified; E87.1 Hypo-osmolality and hyponatremia; E87.29 Other acidosis; T83.511A Infection and inflammatory reaction due to indwelling urethral catheter, initial encounter; L02.212 Cutaneous abscess of back [any part, except buttock and flank]; N39.0 Urinary tract infection, site not specified; Z16.12 Extended spectrum beta lactamase (ESBL) resistance; E66.9 Obesity, unspecified; Z68.32 Body mass index [BMI] 32.0-32.9, adult; E87.5 Hyperkalemia; G47.33 Obstructive sleep apnea (adult) (pediatric); J96.22 Acute and chronic respiratory failure with hypercapnia; K74.60 Unspecified cirrhosis of liver; N20.0 Calculus of kidney; L89.159 Pressure ulcer of sacral region, unspecified stage; B96.1 Klebsiella pneumoniae [K. pneumoniae] as the cause of diseases classified elsewhere; B96.89 Other specified bacterial agents as the cause of diseases classified elsewhere; G89.29 Other chronic pain; M54.9 Dorsalgia, unspecified; E03.9 Hypothyroidism, unspecified; F17.210 Nicotine dependence, cigarettes, uncomplicated; Z91.158 Patient's noncompliance with renal dialysis for other reason; Z93.2 Ileostomy status; Z87.442 Personal history of urinary calculi; Z87.440 Personal history of urinary (tract) infections; Z99.2 Dependence on renal dialysis; Z79.890 Hormone replacement therapy; Z79.899 Other long term (current) drug therapy; Z87.01 Personal history of pneumonia (recurrent); Z88.0 Allergy status to penicillin; Z88.8 Allergy status to other drugs, medicaments and biological substances; Y73.2 Prosthetic and other implants, materials and accessory gastroenterology and urology devices associated with adverse incidents; Y84.6 Urinary catheterization as the cause of abnormal reaction of the patient, or of later complication, without mention of misadventure at the time of the procedure; R59.0 Localized enlarged lymph nodes; Z99.81 Dependence on supplemental oxygen
CPT/HCPCS: 36415; 36600; 71275; 74174; 80053; 80061; 80202; 81001; 82803; 83605; 83735; 83880; 84100; 84145; 84443; 84484; 85025; 85379; 85610; 85652; 85730; 86140; 86331; 86480; 86635; 87040; 87077; 87081; 87086; 87186; 87205; 87400; 87634; 87811; 93005; 93225; 93970; 94640; 94660; 94667; 96365; 96366; 96367; 96372; 96375; 96376; 99291; A4649; A9270; J0456; J1171; J1643; J1885; J1940; J1956; J2270; J2919; J3370; J3475; J3490; J7050; Q5105; Q5106; Q9967; J1644; J1836; J1920

== ENCOUNTER 2024-06-02 20:11 | Inpatient (IN) | payer MEDICARE, MEDICAID, SELFPAY ==
[2024-06-02] VITALS (35 sets, daily range): BP systolic 77–165; BP diastolic 45–109; PULSE 62–101; RESP 7–34; TEMP 37.3; O2SAT 80–100; BMI 54.2
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
--- NOTE | 2024-06-02 20:28 | PC.NURSE ---
Pt coming from home for c/o SOB. Per EMS report, 911 was called by blood bank supervisor brother earlier this morning but pt refused to go. Pt has hx of COPD, is chronic smoker, paralysis, dialysis, kidney stones. Pt arrived with brody that was replaced here in the ER. MD Carlos at bedside, bipap ordered and RT placed on pt as of 2024. Pt not responsive to pain, not opening eyes. Per MD order will attempt bipap to see if pt's condition improves.
--- NOTE | 2024-06-02 20:39 | XR_ITS ---
Examination: AP chest single view Technique one AP portable semiupright chest single view Exam date and time: June 02, 2024 2101 hrs. Comparison April 13, 2024 Indications: Acute hypoxia. Findings: Mild prominence left ventricle Extensive bilateral pneumonia Mild to moderate bilateral pleural effusions Orthopedic hardware upper thoracic spine Impression: Extensive bilateral pneumonia
[2024-06-02 20:59] LABS: Lactate (Lactic Acid) 0.5 mMol/L (0.4-2.0)
--- NOTE | 2024-06-02 21:01 | PC.NURSE ---
Called x-ray to bedside stat at this time.
[2024-06-02 21:14] LABS: Ammonia 36 uMol/L (11-32)
[2024-06-02 21:27] LABS: Base Excess -5 (-3-3); HCO3 28 mEq/L (20-26); Inspired Oxygen, FIO2 50 %; O2 Saturation 80 % (91-98); PCO2 114 mmHg (32.0-48.0)
[2024-06-02 21:28] LABS: Basophils % (Auto) 0 % (0-2.5); Eosinophils # (Auto) 0.1 Thou/mm3 (0.0-0.5); Eosinophils % (Auto) 1 % (0-10); Hematocrit 39.2 % (41.0-53.0); Hemoglobin 11.4 g/dL (13.5-16.0); Immature Granulocytes % (Auto) 2 % (0-0); Immature Granulocytes Auto 0.12 Thou/mm3 (0.00-0.00); Lymphocytes # (Auto) 0.9 Thou/mm3 (1.0-4.8); Lymphocytes % (Auto) 11 % (10-50); Mean Corpuscular HGB Conc 29.1 g/dl (31.0-37.0); Mean Corpuscular Hemoglobin 31.8 pg (25.0-35.0); Mean Corpuscular Volume 109 fL (80-100); Monocytes # (Auto) 0.8 Thou/mm3 (0.0-0.8); Monocytes % (Auto) 9 % (0-12); Neutrophils # (Auto) 6.3 Thou/mm3 (1.8-7.7); Neutrophils % (Auto) 77 % (37-80); Nucleated Red Blood Cell % 0 /100 WBC (0); Platelet Count 137 Thou/mm3 (140-440); Red Blood Count 3.59 Miln/mm3 (4.50-5.90); White Blood Count 8.2 Thou/mm3 (3.8-10.6)
[2024-06-02 21:30] LABS: Allen Test Performed/OK; PO2 49 mmHg (83-108); Puncture Site Left Radial
[2024-06-02 21:46] LABS: Alanine Aminotransferase < 7 U/L (10-49); Albumin, Serum 4.2 gm/dL (3.5-5.0); Albumin/Globulin Ratio 1.2 (1.2-2.2); Alkaline Phosphatase 156 U/L (46-116); Anion Gap 5 (7-16); Aspartate Amino Transferase 10 U/L (0-34); BUN/Creatinine Ratio 6 Ratio (12-20); Bilirubin,Total 0.2 mg/dL (0.3-1.2); Blood Urea Nitrogen 19 mg/dL (9-23); Calcium 9.4 mg/dL (8.3-10.6); Calcium (Corrected) 9.4 mg/dL (8.5-10.1); Carbon Dioxide 26.9 mMol/L (20.0-31.0); Chloride 104 mMol/L (98-107); Creatinine (Component) 3.4 mg/dL (0.6-1.3); Estimated Creatinine Clearance 51.1 mL/min (>60); Globulin 3.4 gm/dL (2.3-3.5); Glucose 131 mg/dL (74-106); Osmolality,Calculated 276 (275-295); Potassium 5.9 mMol/L (3.4-5.1); Procalcitonin 0.22 ng/ml (0.0-0.49); Sodium 136 mMol/L (136-145); Total Protein 7.6 gm/dL (5.7-8.2); eGFR 23 See Note
--- NOTE | 2024-06-02 21:50 | PC.NURSE ---
Addendum entered by Yakelin Nix RN 06/02/24 22:12: @2145:INFORMED MD CAPUTO OF PT'S ABG RESULTS. VERBAL ORDERS GIVEN TO PREPARE FOR INTUBATION. Original Note: MD IN ROOM PREPARING TO INTUBATE. RT AT BEDSIDE.
[2024-06-02] MEDS: ETOMIDATE INJ 2 MG/ML VIAL 10 ML 20 MG IVP (21:57)
[2024-06-02] MEDS: ROCURONIUM INJ 10 MG/ML VIAL 10 ML 70 MG IVP (21:58)
--- NOTE | 2024-06-02 21:58 | XR_ITS ---
Examination: AP chest single view Technique: AP portable supine chest single view Indications: Hypoxic respiratory failure, postintubation, post orogastric tube placement Findings: Bilateral pneumonia again noted Normal heart size The patient's endotracheal tube overlies and orthopedic support dinah, the tip is poorly visualized but appears to project approximately 6 cm above the amparo The orogastric tube is in the stomach, the sidehole is just beyond the GE junction Mild elevation right hemidiaphragm Normal heart size Impression: Bilateral pneumonia again noted Advance the orogastric tube 5 cm
--- NOTE | 2024-06-02 22:10 | PC.NURSE ---
MD CAPUTO AT BEDSIDE PLACING CENTRAL LINE AT THIS TIME.
--- NOTE | 2024-06-02 22:11 | PC.NURSE ---
INFORMED MD CAPUTO OF PT'S ABD RESULTS. VERBAL ORDERS GIVEN TO PREPARE FOR INTUBATION.
[2024-06-02] MEDS: fentaNYL 2,500 MCG/250 ML BAG 2,500 MCG/250 ML BAG IV (22:30)
--- NOTE | 2024-06-02 22:40 | ESOP_ITS ---
Procedures Procedure Date / Time 06/02/240 Procedure Narrative Procedure Narrative: Endotracheal Intubation Date: 06-02-2024 Time: 21:20 Indication:?Respiratory Distress/ Altered mental status to protect air way Resident: Broderick Holt MD Attending: Elise Timmons MD A time-out was completed verifying correct patient, procedure, site, positioning, and special equipment if applicable. The patient was placed in a flat position. Sedation was obtained using?Etomidate 20mg and Rocuronium 70mg. The patient was initially ventilated using an ambu bag. The?GLIDESCOPE / MAC 3 BLADE?was used and inserted into the oropharynx at which time there was a Grade 1 view of the vocal cords. A?8.0-greenlandic endotracheal tube was inserted and visualized going through the vocal cords. The stylette was removed. Colorimetric change was visualized on the CO2 meter. Breath sounds were heard in both lung chavez equally. The endotracheal tube was placed at?26 cm, measured at the teeth. Attending Dr Timmons?was available for the entire process. A chest x-ray was ordered to?verify?endotracheal tube placement. The patient tolerated the procedure well and there were no complications. Case signed out to ICU hospitalist team Dr Orona and Dr Merida ([id number]). - Broderick Holt M.D. PGY2
[2024-06-02 22:42] LABS: B-Type Natriuretic Peptide 581 pg/mL (0-100)
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
[2024-06-02 23:03] LABS: Collection Type, Urine Catheter
[2024-06-02] MEDS: PROPOFOL 1,000 MG IVPB 1,000 MG/100 ML VIAL 5.443 MG IV (23:10)
[2024-06-02] MEDS: AZITHROMYCIN INJ 500 MG in SODIUM CHLORIDE 0.9% 250 ML 250 ML 250 MG IV (23:15)
[2024-06-02 23:33] LABS: Base Excess -1 (-3-3); HCO3 24 mEq/L (20-26); Inspired Oxygen, FIO2 100 %; O2 Saturation 101 % (91-98); PCO2 40 mmHg (32.0-48.0); PO2 365 mmHg (83-108); pH, Arterial 7.38 (7.35-7.45)
[2024-06-02] MEDS: SOD POLYSTYRENE SULFON SUSP 15 GM/60 ML BTL 30 GM GT (23:33)
[2024-06-02] MEDS: DEXTROSE 50%-WATER INJ 50 ML SYRINGE IV (23:33)
[2024-06-02] MEDS: INSULIN HUM REGULAR 1 UNIT/0.01 ML (PER UNIT) 5 UNIT IV (23:36)
[2024-06-02 23:40] LABS: Allen Test Performed/OK; Puncture Site Left Radial
[2024-06-02 23:45] LABS: Amphetamine/Methamp Scrn,U Negative (Negative); Barbiturate Screen,Urine Negative (Negative); Benzodiazepines Screen,Urine Negative (Negative); Benzoylecgonine Screen, Ur Negative (Negative); Opiate Screen,Urine Positive (Negative); THC Screen,Urine Negative (Negative)
[2024-06-02 23:55] LABS: Fentanyl Screen,Urine Negative (Negative)
[2024-06-03] VITALS (100 sets, daily range): BP systolic 76–163; BP diastolic 39–128; PULSE 57–115; RESP 0–29; TEMP 35.6–37.1; O2SAT 75–100
[2024-06-03] MEDS: PROPOFOL 1,000 MG IVPB 1,000 MG/100 ML VIAL 5.443 MG IV (00:06)
[2024-06-03 00:19] LABS: Bacteria,Urine Rare; Bilirubin,Urine Negative (Negative); Blood,Urine 2+ (Negative); Color,Urine Dark-Brown (Lt Yel-Yel); Glucose, Urine Negative (Negative); Ketones,Urine Negative (Negative); Leukocyte Esterase,Urine Positive (Negative); Nitrite,Urine Negative (Negative); PH,Urine 6.5 (5.0-7.0); Protein,Urine 2+ (Neg - Trace); RBC,Urine 3 /hpf (0-3); Specific Gravity,Urine 1.026 (1.001-1.035); Squamous Epithelial Cell,Urine 1 /hpf (0-5); Urobilinogen,Urine Negative mg/dL (0.0-1.0); WBC,Urine 20 /hpf (0-5)
[2024-06-03 00:23] LABS: Clarity,Urine Hazy (Clear/Hazy)
[2024-06-03] MEDS: cefTRIAXone/D5w 1gm IV premix 50 ML IV ×2 (01:44→08:55)
[2024-06-03 02:15] LABS: Potassium 5.5 mMol/L (3.4-5.1)
[2024-06-03 02:43] LABS: Base Excess 0 (-3-3); HCO3 24 mEq/L (20-26); Inspired Oxygen, FIO2 21 %; O2 Saturation 100 % (91-98); PCO2 35 mmHg (32.0-48.0); PO2 93 mmHg (83-108); pH, Arterial 7.45 (7.35-7.45)
[2024-06-03 02:47] LABS: Allen Test Performed/OK; Puncture Site Left Radial
[2024-06-03] MEDS: MIDODRINE 5 MG TABLET 10 MG GT ×4 (03:03→21:29)
[2024-06-03] MEDS: SOD POLYSTYRENE SULFON SUSP 15 GM/60 ML BTL 30 GM GT (03:04)
[2024-06-03 04:28] LABS: Base Excess 0 (-3-3); HCO3 26 mEq/L (20-26); Inspired Oxygen, FIO2 21 %; O2 Saturation 98 % (91-98); PCO2 46 mmHg (32.0-48.0); PO2 85 mmHg (83-108); pH, Arterial 7.36 (7.35-7.45)
[2024-06-03 04:32] LABS: Allen Test Performed/OK; Puncture Site Left Radial
[2024-06-03 05:52] LABS: Basophils % (Auto) 0 % (0-2.5); Eosinophils # (Auto) 0.1 Thou/mm3 (0.0-0.5); Eosinophils % (Auto) 2 % (0-10); Hemoglobin 9.6 g/dL (13.5-16.0); Immature Granulocytes % (Auto) 1 % (0-0); Immature Granulocytes Auto 0.07 Thou/mm3 (0.00-0.00); Lymphocytes # (Auto) 0.9 Thou/mm3 (1.0-4.8); Lymphocytes % (Auto) 14 % (10-50); Mean Corpuscular Hemoglobin 32.4 pg (25.0-35.0); Mean Corpuscular Volume 108 fL (80-100); Monocytes # (Auto) 1.1 Thou/mm3 (0.0-0.8); Monocytes % (Auto) 15 % (0-12); Neutrophils # (Auto) 4.6 Thou/mm3 (1.8-7.7); Neutrophils % (Auto) 68 % (37-80); Nucleated Red Blood Cell % 0 /100 WBC (0); Platelet Count 105 Thou/mm3 (140-440); RDW Standard Deviation 57.6 fL (35.1-43.9); Red Blood Count 2.96 Miln/mm3 (4.50-5.90); White Blood Count 6.8 Thou/mm3 (3.8-10.6)
[2024-06-03 06:01] LABS: Prothrombin Time 10.9 Seconds (9.0-12.2)
[2024-06-03] MEDS: LEVOTHYROXINE SODIUM 25 MCG TABLET NG (06:15)
[2024-06-03 06:46] LABS: Alanine Aminotransferase < 7 U/L (10-49); Albumin, Serum 3.5 gm/dL (3.5-5.0); Albumin/Globulin Ratio 1.3 (1.2-2.2); Alkaline Phosphatase 124 U/L (46-116); Anion Gap 6 (7-16); Aspartate Amino Transferase < 8 U/L (0-34); BUN/Creatinine Ratio 7 Ratio (12-20); Bilirubin,Total 0.2 mg/dL (0.3-1.2); Blood Urea Nitrogen 23 mg/dL (9-23); Calcium 9.2 mg/dL (8.3-10.6); Calcium (Corrected) 9.6 mg/dL (8.5-10.1); Carbon Dioxide 27.1 mMol/L (20.0-31.0); Chloride 104 mMol/L (98-107); Creatinine (Component) 3.5 mg/dL (0.6-1.3); Estimated Creatinine Clearance 40.1 mL/min (>60); Globulin 2.6 gm/dL (2.3-3.5); Glucose 84 mg/dL (74-106); Magnesium 1.7 mg/dL (1.6-2.6); Osmolality,Calculated 276 (275-295); Phosphorous 4.3 mg/dL (2.4-5.1); Potassium 4.3 mMol/L (3.4-5.1); Sodium 137 mMol/L (136-145); Total Protein 6.1 gm/dL (5.7-8.2); eGFR 22 See Note
[2024-06-03] MEDS: PROPOFOL 1,000 MG IVPB 1,000 MG/100 ML VIAL 16.329 MG IV (07:14)
[2024-06-03 07:56] LABS: Glucose Estimated Average 88 mg/dL (80-131); Hemoglobin A1C 4.7 % Hgb (4.8-6.0)
--- NOTE | 2024-06-03 08:33 | XR_ITS ---
Examination: AP chest single view Technique one AP portable semiupright chest single view Exam date and time: June 03, 2024 0845 hours Comparison June 02, 2024 INDICATIONS: Hypoxic respiratory failure, pneumonia on earlier imaging examination FINDINGS: Significant bilateral pneumonia, severe left base Tracheal tube tip approximately 4.7 cm above amparo The orogastric tube is in the stomach the tip is below the level film Moderate vascular congestion Mild enlargement cardiac contour IMPRESSION: Prominent bilateral pneumonia, especially left base
--- NOTE | 2024-06-03 08:48 | PD.RESPRO ---
Documentation for date of: 06/03/24 Exam Vital Signs Temp Pulse Resp BP Pulse Ox O2 Del Method O2 Flow Rate 96.8 F 68 0 L 83/46 L 100 Mechanical Ventilation 15 06/03/24 08:00 06/03/24 08:31 06/03/24 00:45 06/03/24 08:31 06/03/24 08:31 06/03/24 08:00 06/02/24 20:14 FiO2 30 06/03/24 08:00 Objective Labs 06/03/24 04:46 06/03/24 04:46 Labs: Laboratory Results - last 24 hr 06/02/24 06/02/24 06/02/24 20:40 21:10 22:41 WBC 8.2 RBC 3.59 L Hgb 11.4 L Hct 39.2 L MCV 109 H MCH 31.8 MCHC 29.1 L RDW Std Deviation 59.0 H Plt Count 137 L Neut % (Auto) 77 Lymph % (Auto) 11 [place] % (Auto) 9 Eos % (Auto) 1 Baso % (Auto) 0 Neut # (Auto) 6.3 Lymph # (Auto) 0.9 L [place] # (Auto) 0.8 Eos # (Auto) 0.1 Baso # (Auto) 0.0 Immature Gran # (Auto) 0.12 H Absolute Nucleated RBC 0.00 Immature Gran % 2 H Nucleated RBC % 0 PT INR Puncture Site Left Radial ABG pH 7.00 L* ABG pCO2 114 H* ABG pO2 49 L* ABG HCO3 28 H ABG O2 Saturation 80 L ABG Base Excess -5 L FiO2 50 Sodium 136 Potassium 5.9 H Chloride 104 Carbon Dioxide 26.9 Anion Gap 5 L BUN 19 Creatinine 3.4 H Estim Creat Clear Calc 51.1 L eGFR 23 L BUN/Creatinine Ratio 6 L Glucose [address] Glu mg/dL Hemoglobin A1c Calculated Osmolality 276 Lactic Acid 0.5 Calcium 9.4 Corrected Calcium 9.4 Phosphorus Magnesium Total Bilirubin 0.2 L AST 10 ALT < 7 L Alkaline Phosphatase 156 H Ammonia 36 H B-Natriuretic Peptide 581 H* Total Protein 7.6 Albumin 4.2 Globulin 3.4 Albumin/Globulin Ratio 1.2 Procalcitonin 0.22 Ur Collection Type Catheter Urine Color Dark-Brown Urine Clarity Hazy Urine pH 6.5 Ur Specific [place] 1.026 Urine Protein 2+ A Urine Glucose (UA) Negative Urine Ketones Negative Urine Blood 2+ A Urine Nitrite Negative Urine Bilirubin Negative Urine Urobilinogen (Auto) Negative Ur Leukocyte Esterase Positive Urine RBC 3 Urine WBC 20 H Ur Squamous Epith Cells 1 Urine Bacteria Rare Urine Opiates Screen Positive A Urine Fentanyl Screen Negative Ur Barbiturates Screen Negative U Amphetamin/Meth Scrn Negative U Benzodiazepines Scrn Negative U Cocaine Metab Screen Negative U Marijuana (THC) Screen Negative 06/02/24 06/03/24 06/03/24 23:30 01:47 02:39 WBC RBC Hgb Hct MCV MCH MCHC RDW Std Deviation Plt Count Neut % (Auto) Lymph % (Auto) [place] % (Auto) Eos % (Auto) Baso % (Auto) Neut # (Auto) Lymph # (Auto) [place] # (Auto) Eos # (Auto) Baso # (Auto) Immature Gran # (Auto) Absolute Nucleated RBC Immature Gran % Nucleated RBC % PT INR Puncture Site Left Radial Left Radial ABG pH 7.38 D 7.45 ABG pCO2 40 D 35 ABG pO2 365 H D 93 D ABG HCO3 24 24 ABG O2 Saturation 101 H 100 H ABG Base Excess -1 0 FiO2 100 21 Sodium Potassium 5.5 H Chloride Carbon Dioxide Anion Gap BUN Creatinine Estim Creat Clear Calc eGFR BUN/Creatinine Ratio Glucose Estimated Ave Glu mg/dL Hemoglobin A1c Calculated Osmolality Lactic Acid Calcium Corrected Calcium Phosphorus Magnesium Total Bilirubin AST ALT Alkaline Phosphatase Ammonia B-Natriuretic Peptide Total Protein Albumin Globulin Albumin/Globulin Ratio Procalcitonin Ur Collection Type Urine Color Urine Clarity Urine pH Ur Specific [place] Urine Protein Urine Glucose (UA) Urine Ketones Urine Blood Urine Nitrite Urine Bilirubin Urine Urobilinogen (Auto) Ur Leukocyte Esterase Urine RBC Urine WBC Ur Squamous Epith Cells Urine Bacteria Urine Opiates Screen Urine Fentanyl Screen Ur Barbiturates Screen U Amphetamin/Meth Scrn U Benzodiazepines Scrn U Cocaine Metab Screen U Marijuana (THC) Screen 06/03/24 06/03/24 04:16 04:46 WBC 6.8 RBC 2.96 L Hgb 9.6 L Hct 32.0 L MCV 108 H MCH 32.4 MCHC 30.0 L RDW Std Deviation 57.6 H Plt Count 105 L D Neut % (Auto) 68 Lymph % (Auto) 14 [place] % (Auto) 15 H Eos % (Auto) 2 Baso % (Auto) 0 Neut # (Auto) 4.6 Lymph # (Auto) 0.9 L [place] # (Auto) 1.1 H Eos # (Auto) 0.1 Baso # (Auto) 0.0 Immature Gran # (Auto) 0.07 H Absolute Nucleated RBC 0.00 Immature Gran % 1 H Nucleated RBC % 0 PT 10.9 INR 1.0 Puncture Site Left Radial ABG pH 7.36 ABG pCO2 46 D ABG pO2 85 ABG HCO3 26 ABG O2 Saturation 98 ABG Base Excess 0 FiO2 21 Sodium 137 Potassium 4.3 D Chloride 104 Carbon Dioxide 27.1 Anion Gap 6 L BUN 23 Creatinine 3.5 H Estim Creat Clear Calc 40.1 L eGFR 22 L BUN/Creatinine Ratio 7 L Glucose [address] Glu mg/dL 88 Hemoglobin A1c 4.7 L Calculated Osmolality 276 Lactic Acid Calcium 9.2 Corrected Calcium 9.6 Phosphorus 4.3 Magnesium 1.7 Total Bilirubin 0.2 L AST < 8 ALT < 7 L Alkaline Phosphatase 124 H D Ammonia B-Natriuretic Peptide Total Protein 6.1 Albumin 3.5 D Globulin 2.6 Albumin/Globulin Ratio 1.3 Procalcitonin Ur Collection Type Urine Color Urine Clarity Urine pH Ur Specific [place] Urine Protein Urine Glucose (UA) Urine Ketones Urine Blood Urine Nitrite Urine Bilirubin Urine Urobilinogen (Auto) Ur Leukocyte Esterase Urine RBC Urine WBC Ur Squamous Epith Cells Urine Bacteria Urine Opiates Screen Urine Fentanyl Screen Ur Barbiturates Screen U Amphetamin/Meth Scrn U Benzodiazepines Scrn U Cocaine Metab Screen U Marijuana (THC) Screen ABG Interpretation ABG results: 06/02/24 06/02/24 06/03/24 21:10 23:30 02:39 ABG pH 7.00 L* 7.38 D 7.45 ABG pCO2 114 H* 40 D 35 ABG pO2 49 L* 365 H D 93 D ABG HCO3 28 H 24 24 ABG O2 Saturation 80 L 101 H 100 H ABG Base Excess -5 L -1 0 06/03/24 04:16 ABG pH 7.36 ABG pCO2 46 D ABG pO2 85 ABG HCO3 26 ABG O2 Saturation 98 ABG Base Excess 0 Quality Measures Quality Measures none Assessment & Plan Assessment Current Active Medications: Generic Name Dose Route Start Last Admin Trade Name Freq PRN Reason Stop Dose Admin Acetaminophen 650 mg 06/02/24 22:48 Acetaminophen 325 Mg Tablet PO 07/02/24 22:47 Q6H PRN Fever >101.5 Albuterol/Ipratropium 3 ml 06/03/24 05:02 Albuterol/Ipratropium (Duoneb) Rt [place] 3 Ml Nebu INH 07/03/24 05:01 Q2HR PRN SHORTNESS OF BREATH OR WHEEZE Dextrose 25 ml 06/02/24 22:37 Dextrose 50%-Water Inj 50 Ml Syringe IV 07/02/24 22:36 Q15MIN PRN BG 50-70 responsive npo pt Dextrose 50 ml 06/02/24 22:37 Dextrose 50%-Water Inj 50 Ml Syringe IV 07/02/24 22:36 Q15MIN PRN BG <50 OR BG <70 & pt unresponsive Glucagon 1 mg 06/02/24 22:37 Glucagon Inj 1 Mg Vial IM Q15MIN PRN BG <70, and no IV access Heparin Sodium (Porcine) 5,000 unit 06/03/24 09:00 Heparin Sod Inj 5000 Unit/Ml Vial SC 06/17/24 08:59 Q12HR FOREIGN Fentanyl Citrate 2,500 mcg in 250 mls @ 2.5 mls/hr 06/02/24 21:45 06/03/24 08:36 Sublimaze Inj 2,500 Mcg/250 Ml Bag IV 06/07/24 21:44 225 mcg/hr .Q24H PRN 22.5 mls/hr PER PROTOCOL Titration Protocol 25 MCG/HR Azithromycin 500 mg/ Sodium 250 mls @ 250 mls/hr 06/02/24 23:00 06/02/24 23:15 Chloride IV 06/09/24 22:59 250 mls/hr Q24H FOREIGN Administration Ceftriaxone Sodium/Dextrose 50 mls @ 100 mls/hr 06/02/24 22:46 06/03/24 01:44 Rocephin/D5w 1gm Iv Premix IV 06/09/24 22:45 100 mls/hr QDAY FOREIGN Administration Propofol 1,000 mg in 100 mls @ 5.443 mls/hr 06/02/24 23:02 06/03/24 08:42 Diprivan Ivpb IV 07/02/24 23:01 10 mcg/kg/min .[id number] PRN 10.886 mls/hr PER PROTOCOL Titration Protocol 5 MCG/KG/MIN Levothyroxine Sodium 25 mcg 06/03/24 06:00 06/03/24 06:15 Levothyroxine Sodium 25 Mcg Tablet NG 07/03/24 05:59 25 mcg ACBR FOREIGN Administration Magnesium Hydroxide 30 ml 06/03/24 05:02 Milk Of Magnesia Susp 30 Ml Udc NG 07/03/24 05:01 QDAY PRN CONSTIPATION Protocol Midodrine 10 mg 06/03/24 02:20 06/03/24 06:15 Midodrine 5 Mg Tablet GT 07/03/24 02:19 10 mg TID FOREIGN Administration Ondansetron HCl 4 mg 06/02/24 22:48 Ondansetron Inj 2 Mg/Ml Inj 2 Ml IV 07/02/24 22:47 Q6H PRN NAUSEA OR VOMITING Protocol Pantoprazole Sodium 40 mg 06/03/24 09:00 Pantoprazole Inj 40 Mg Vial IVP 07/03/24 08:[facility] Consult 1 each 06/03/24 09:00 Pharmacy Renal Dose Adjustment 1 Ea XX 07/03/24 08:59 [facility]
[2024-06-03] MEDS: PANTOPRAZOLE INJ 40 MG VIAL IVP (08:56)
[2024-06-03] MEDS: HEPARIN SOD INJ 5000 UNIT/ML VIAL SC (08:56)
[2024-06-03] MEDS: VANCOMYCIN/WATER 1250 MG IVPB 250 ML 120 MG IV (09:51)
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
[2024-06-03] MEDS: ALBUMIN HUMAN 25% IVPB 25 GM/100 ML BTL IV (13:15)
--- NOTE | 2024-06-03 13:19 | PC.NURSE ---
bp trending down, pt denies all s/s of hypotension will admin prn albumin per md orders and cont. to monitor
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
--- NOTE | 2024-06-03 13:48 | PC.SS ---
Update: Patient has been extubated. Patient on nasal cannula. P.O. feeding. Patient receiving dialysis today. Patient is established with out patient dialysis, [facility].
[2024-06-03] MEDS: Magnesium Sulfate 2 GM Ivpb 2 GM/50 ML BAG IV (13:52)
[2024-06-03] MEDS: GABAPENTIN 300 MG CAPSULE PO ×2 (15:08→21:29)
[2024-06-03] MEDS: CYCLObenzaPRINE 5 MG TABLET PO (15:08)
[2024-06-03] MEDS: EPOETIN ALFA-EPBX INJ 10,000 UNIT/ML VIAL (ESRD) 10000 UNIT SC (15:37)
--- NOTE | 2024-06-03 15:53 | PC.SS ---
BEAM DYER conducted bedside contact with the patient to conduct initial assessment and to discuss discharge planning. Patient resides at home with mother and brother. Patient is bedbound. Patient utilizes home oxygen. Patient requires assistance with completion of ADL?s. Patient?s brother provides IHSS on behalf of the patient. The patient?s medical surrogate decision maker is mother, Juliana Medrano . The patient?s PCP is Dr. Bunn [facility]. The patient participates with dialysis. Financial Sales Representative is Dr. Jeff. Discharge plan is for the patient to return home. Patient possesses coverage for ambulance transport. No further intervention required at this time, social work job titles will be available to address any further concerns. Next of Kin: Juliana Marcela D/C Plan: Home
--- NOTE | 2024-06-03 16:47 | EVENTNT_ITS ---
Documentation for date of: 06/03/24 Event Note Event Note: 33-year-old male with past medical history of HTN, ESRD, paraplegia with indwelling Richardson admitted to ICU for acute hypoxic/hypercapnic respiratory failure requiring intubation. Patient was treated with IV antibiotics for pneum onia. Patient successfully extubated 06/03. Patient medically stable for downgrade to floors for further treatment, will assume care of patient starting tomorrow. Ronak Morton MD PGY?1
[2024-06-03] MEDS: HYDROcodone/APAP 5/325 TABLET 1 TAB PO (20:02)
[2024-06-04] VITALS (11 sets, daily range): BP systolic 104–149; BP diastolic 73–92; PULSE 81–105; RESP 15–19; TEMP 36.1–36.7; O2SAT 90–99; BMI 33.3
[2024-06-04] MEDS: GABAPENTIN 300 MG CAPSULE PO ×3 (05:28→20:51)
[2024-06-04] MEDS: MIDODRINE 5 MG TABLET 10 MG GT ×3 (05:28→20:50)
[2024-06-04] MEDS: LEVOTHYROXINE SODIUM 25 MCG TABLET NG (05:28)
[2024-06-04] MEDS: HYDROcodone/APAP 5/325 TABLET 1 TAB PO ×3 (05:33→18:35)
[2024-06-04 06:00] LABS: Basophils # (Auto) 0.1 Thou/mm3 (0.0-0.2); Basophils % (Auto) 1 % (0-2.5); Eosinophils # (Auto) 0.2 Thou/mm3 (0.0-0.5); Eosinophils % (Auto) 3 % (0-10); Hematocrit 33.8 % (41.0-53.0); Hemoglobin 10.1 g/dL (13.5-16.0); Immature Granulocytes % (Auto) 1 % (0-0); Immature Granulocytes Auto 0.05 Thou/mm3 (0.00-0.00); Lymphocytes # (Auto) 0.8 Thou/mm3 (1.0-4.8); Lymphocytes % (Auto) 13 % (10-50); Mean Corpuscular HGB Conc 29.9 g/dl (31.0-37.0); Mean Corpuscular Hemoglobin 31.9 pg (25.0-35.0); Mean Corpuscular Volume 107 fL (80-100); Monocytes # (Auto) 0.8 Thou/mm3 (0.0-0.8); Monocytes % (Auto) 13 % (0-12); Neutrophils # (Auto) 4.3 Thou/mm3 (1.8-7.7); Neutrophils % (Auto) 70 % (37-80); Nucleated Red Blood Cell % 0 /100 WBC (0); Platelet Count 155 Thou/mm3 (140-440); RDW Standard Deviation 58.6 fL (35.1-43.9); Red Blood Count 3.17 Miln/mm3 (4.50-5.90); White Blood Count 6.1 Thou/mm3 (3.8-10.6)
[2024-06-04 06:03] LABS: Prothrombin Time 11.4 Seconds (9.0-12.2)
[2024-06-04 06:37] LABS: Alanine Aminotransferase 10 U/L (10-49); Albumin, Serum 4.1 gm/dL (3.5-5.0); Albumin/Globulin Ratio 1.5 (1.2-2.2); Alkaline Phosphatase 171 U/L (46-116); Anion Gap 9 (7-16); Aspartate Amino Transferase 15 U/L (0-34); BUN/Creatinine Ratio 6 Ratio (12-20); Bilirubin,Total < 0.2 mg/dL (0.3-1.2); Blood Urea Nitrogen 19 mg/dL (9-23); Calcium 8.9 mg/dL (8.3-10.6); Calcium (Corrected) 8.9 mg/dL (8.5-10.1); Carbon Dioxide 25.8 mMol/L (20.0-31.0); Chloride 100 mMol/L (98-107); Creatinine (Component) 3.3 mg/dL (0.6-1.3); Estimated Creatinine Clearance 40.3 mL/min (>60); Globulin 2.8 gm/dL (2.3-3.5); Glucose 95 mg/dL (74-106); Magnesium 1.8 mg/dL (1.6-2.6); Osmolality,Calculated 272 (275-295); Phosphorous 5.2 mg/dL (2.4-5.1); Potassium 4.5 mMol/L (3.4-5.1); Sodium 135 mMol/L (136-145); Total Protein 6.9 gm/dL (5.7-8.2); eGFR 24 See Note
[2024-06-04 07:32] LABS: Vancomycin,Random 11.8 mcg/mL
[2024-06-04] MEDS: cefTRIAXone/D5w 1gm IV premix 50 ML IV (08:09)
[2024-06-04] MEDS: HEPARIN SOD INJ 5000 UNIT/ML VIAL SC ×2 (08:10→20:37)
[2024-06-04] MEDS: PANTOPRAZOLE INJ 40 MG VIAL IVP (08:10)
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
--- NOTE | 2024-06-04 09:22 | PC.SS ---
SS follow up note; Patient is a ICU downgrade. Blood Cultures pending.
[2024-06-04] MEDS: VANCOMYCIN/WATER 1250 MG IVPB 250 ML 120 MG IV (10:54)
[2024-06-04] MEDS: CYCLObenzaPRINE 5 MG TABLET PO (13:57)
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
--- NOTE | 2024-06-04 17:04 | PC.NURSE ---
WILL NOTIFY TRAVEL PTA NURSE TO START WOUND CARE ORDERS ON PATIENT AND DO WOUND CARE. WILL CONTINUE TO MONITOR PATIENT
[2024-06-05] VITALS (13 sets, daily range): BP systolic 128–142; BP diastolic 65–99; PULSE 90–105; RESP 18–28; TEMP 36.2–36.7; O2SAT 96–100
[2024-06-05] MEDS: ALBUTEROL/IPRATROPIUM (Duoneb) RT SOL 3 ML NEBU INH (00:31)
[2024-06-05] MEDS: CYCLObenzaPRINE 5 MG TABLET PO ×2 (05:49→16:55)
[2024-06-05] MEDS: LEVOTHYROXINE SODIUM 25 MCG TABLET NG (05:49)
[2024-06-05] MEDS: HYDROcodone/APAP 5/325 TABLET 1 TAB PO ×3 (05:49→18:51)
[2024-06-05] MEDS: GABAPENTIN 300 MG CAPSULE PO ×3 (05:49→21:51)
[2024-06-05] MEDS: MIDODRINE 5 MG TABLET 10 MG GT (05:49)
[2024-06-05 05:58] LABS: Basophils # (Auto) 0.1 Thou/mm3 (0.0-0.2); Basophils % (Auto) 1 % (0-2.5); Eosinophils # (Auto) 0.2 Thou/mm3 (0.0-0.5); Eosinophils % (Auto) 2 % (0-10); Hematocrit 34.7 % (41.0-53.0); Hemoglobin 10.2 g/dL (13.5-16.0); Immature Granulocytes % (Auto) 1 % (0-0); Immature Granulocytes Auto 0.05 Thou/mm3 (0.00-0.00); Lymphocytes # (Auto) 0.8 Thou/mm3 (1.0-4.8); Lymphocytes % (Auto) 11 % (10-50); Mean Corpuscular HGB Conc 29.4 g/dl (31.0-37.0); Mean Corpuscular Hemoglobin 31.5 pg (25.0-35.0); Mean Corpuscular Volume 107 fL (80-100); Monocytes % (Auto) 13 % (0-12); Neutrophils # (Auto) 5.5 Thou/mm3 (1.8-7.7); Neutrophils % (Auto) 72 % (37-80); Nucleated Red Blood Cell % 0 /100 WBC (0); Platelet Count 137 Thou/mm3 (140-440); Red Blood Count 3.24 Miln/mm3 (4.50-5.90); White Blood Count 7.6 Thou/mm3 (3.8-10.6)
[2024-06-05 06:11] LABS: Prothrombin Time 11.3 Seconds (9.0-12.2)
[2024-06-05 06:46] LABS: Carbon Dioxide 25.1 mMol/L (20.0-31.0); Chloride 99 mMol/L (98-107); Potassium 5.1 mMol/L (3.4-5.1); Sodium 132 mMol/L (136-145)
[2024-06-05 06:47] LABS: Alanine Aminotransferase < 7 U/L (10-49); Albumin, Serum 4.1 gm/dL (3.5-5.0); Albumin/Globulin Ratio 1.4 (1.2-2.2); Alkaline Phosphatase 155 U/L (46-116); Anion Gap 8 (7-16); Aspartate Amino Transferase < 8 U/L (0-34); BUN/Creatinine Ratio 7 Ratio (12-20); Bilirubin,Total 0.2 mg/dL (0.3-1.2); Blood Urea Nitrogen 27 mg/dL (9-23); Calcium 9.3 mg/dL (8.3-10.6); Calcium (Corrected) 9.3 mg/dL (8.5-10.1); Creatinine (Component) 3.9 mg/dL (0.6-1.3); Estimated Creatinine Clearance 34.1 mL/min (>60); Globulin 2.9 gm/dL (2.3-3.5); Glucose 101 mg/dL (74-106); Magnesium 1.9 mg/dL (1.6-2.6); Osmolality,Calculated 269 (275-295); Phosphorous 6.1 mg/dL (2.4-5.1); eGFR 20 See Note
[2024-06-05] MEDS: cefTRIAXone/D5w 1gm IV premix 50 ML IV (08:34)
[2024-06-05] MEDS: PANTOPRAZOLE INJ 40 MG VIAL IVP (08:34)
[2024-06-05] MEDS: BALSAM PERU/CASTOR OIL (Venelex) 60 GM TUBE TOP ×2 (08:34→21:51)
[2024-06-05] MEDS: HEPARIN SOD INJ 5000 UNIT/ML VIAL SC ×2 (08:35→21:55)
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
[2024-06-05] MEDS: VANCOMYCIN/WATER 1250 MG IVPB 250 ML 120 MG IV (09:35)
--- NOTE | 2024-06-05 11:53 | PC.CM ---
Patient is opened to [facility]. He will need new orders if he goes home.
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
[2024-06-05] MEDS: SEVELAMER CARBONATE 800 MG TABLET PO (16:55)
[2024-06-06] VITALS (12 sets, daily range): BP systolic 119–146; BP diastolic 80–102; PULSE 88–107; RESP 18–25; TEMP 36.1–36.2; O2SAT 94–100
[2024-06-06] MEDS: HYDROcodone/APAP 5/325 TABLET 1 TAB PO ×2 (00:47→07:19)
[2024-06-06] MEDS: CYCLObenzaPRINE 5 MG TABLET PO ×2 (00:50→14:01)
[2024-06-06] MEDS: GABAPENTIN 300 MG CAPSULE PO ×2 (05:23→13:01)
[2024-06-06] MEDS: LEVOTHYROXINE SODIUM 25 MCG TABLET NG (05:23)
[2024-06-06 06:34] LABS: Alanine Aminotransferase < 7 U/L (10-49); Albumin, Serum 4.1 gm/dL (3.5-5.0); Albumin/Globulin Ratio 1.4 (1.2-2.2); Alkaline Phosphatase 168 U/L (46-116); Anion Gap 10 (7-16); Aspartate Amino Transferase < 8 U/L (0-34); BUN/Creatinine Ratio 8 Ratio (12-20); Bilirubin,Total 0.2 mg/dL (0.3-1.2); Blood Urea Nitrogen 32 mg/dL (9-23); Calcium 9.3 mg/dL (8.3-10.6); Calcium (Corrected) 9.3 mg/dL (8.5-10.1); Chloride 100 mMol/L (98-107); Creatinine (Component) 4.2 mg/dL (0.6-1.3); Estimated Creatinine Clearance 31.6 mL/min (>60); Globulin 2.9 gm/dL (2.3-3.5); Glucose 110 mg/dL (74-106); Osmolality,Calculated 274 (275-295); Phosphorous 5.7 mg/dL (2.4-5.1); Potassium 5.3 mMol/L (3.4-5.1); Sodium 133 mMol/L (136-145); eGFR 18 See Note
[2024-06-06 07:37] LABS: Basophils % (Auto) 1 % (0-2.5); Eosinophils # (Auto) 0.2 Thou/mm3 (0.0-0.5); Eosinophils % (Auto) 3 % (0-10); Hematocrit 32.8 % (41.0-53.0); Hemoglobin 9.9 g/dL (13.5-16.0); Immature Granulocytes % (Auto) 0 % (0-0); Immature Granulocytes Auto 0.03 Thou/mm3 (0.00-0.00); Lymphocytes # (Auto) 0.5 Thou/mm3 (1.0-4.8); Lymphocytes % (Auto) 7 % (10-50); Mean Corpuscular HGB Conc 30.2 g/dl (31.0-37.0); Mean Corpuscular Hemoglobin 31.8 pg (25.0-35.0); Mean Corpuscular Volume 106 fL (80-100); Monocytes # (Auto) 0.9 Thou/mm3 (0.0-0.8); Monocytes % (Auto) 13 % (0-12); Neutrophils # (Auto) 5.2 Thou/mm3 (1.8-7.7); Neutrophils % (Auto) 76 % (37-80); Nucleated Red Blood Cell % 0 /100 WBC (0); Platelet Count 135 Thou/mm3 (140-440); RDW Standard Deviation 57.4 fL (35.1-43.9); Red Blood Count 3.11 Miln/mm3 (4.50-5.90); White Blood Count 6.9 Thou/mm3 (3.8-10.6)
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
[2024-06-06] MEDS: PANTOPRAZOLE INJ 40 MG VIAL IVP (08:10)
[2024-06-06] MEDS: BALSAM PERU/CASTOR OIL (Venelex) 60 GM TUBE TOP (08:10)
[2024-06-06] MEDS: SEVELAMER CARBONATE 800 MG TABLET PO ×3 (08:10→17:51)
[2024-06-06] MEDS: HEPARIN SOD INJ 5000 UNIT/ML VIAL SC (08:11)
[2024-06-06 09:30] LABS: Vancomycin,Trough 34.7 mcg/mL (5.0-10.0)
[2024-06-06] MEDS: ALBUTEROL/IPRATROPIUM (Duoneb) RT SOL 3 ML NEBU INH (10:19)
--- NOTE | 2024-06-06 10:42 | PC.NURSE ---
Discharge orders in pending transportation
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
[2024-06-06] MEDS: PATIROMER CALCIUM 8.4 GM PACKET (NON-FORM) PO (11:04)
[2024-06-06] MEDS: HYDROcodone/APAP 7.5/325 TABLET 1 TAB PO (13:01)
--- NOTE | 2024-06-06 14:45 | PC.SS ---
Sheeter Operator (SONIA) Cheryl notified that patient was ready for discharge. SONIA contacted [facility] for transportation services; reference number: [id number]. SONIA uploaded infromation to [employer], pending transportation services.
--- NOTE | 2024-06-07 09:56 | PC.CC ---
Addendum entered by Lan Sykes RN 06/07/24 17:07: start of care date with [facility] is 06/09/24 Addendum entered by Elly Locke RN 06/07/24 10:07: pt booked with [facility] pending SOC Original Note: Referral sent to [facility]
== END 2024-06-06 18:40 | disposition home health service (06) | DRG 871 ==
LOC: SERX 21:15 → SERHOLD 23:13 → S2SX 06-03 00:27 → S3SX 06-03 17:44
PROVIDERS: Student in an Organized Health Care Education/Training Program; Admitting Provider Internal Medicine; Emergency Provider Emergency Medicine; PCP Family Medicine; Visit Provider Student in an Organized Health Care Education/Training Program
DX: A40.3 Sepsis due to Streptococcus pneumoniae (principal); G93.41 Metabolic encephalopathy; J13 Pneumonia due to Streptococcus pneumoniae; N18.6 End stage renal disease; J96.02 Acute respiratory failure with hypercapnia; J96.01 Acute respiratory failure with hypoxia; G82.20 Paraplegia, unspecified; I13.2 Hypertensive heart and chronic kidney disease with heart failure and with stage 5 chronic kidney disease, or end stage renal disease; E66.2 Morbid (severe) obesity with alveolar hypoventilation; N39.0 Urinary tract infection, site not specified; E87.29 Other acidosis; Z16.12 Extended spectrum beta lactamase (ESBL) resistance; I50.9 Heart failure, unspecified; N31.9 Neuromuscular dysfunction of bladder, unspecified; K74.60 Unspecified cirrhosis of liver; E03.9 Hypothyroidism, unspecified; E87.5 Hyperkalemia; D53.9 Nutritional anemia, unspecified; D69.6 Thrombocytopenia, unspecified; K21.9 Gastro-esophageal reflux disease without esophagitis; G89.29 Other chronic pain; M54.9 Dorsalgia, unspecified; S24.102S Unspecified injury at T2-T6 level of thoracic spinal cord, sequela; Z86.14 Personal history of Methicillin resistant Staphylococcus aureus infection; F17.200 Nicotine dependence, unspecified, uncomplicated; Z99.2 Dependence on renal dialysis; Z56.0 Unemployment, unspecified; Z68.37 Body mass index [BMI] 37.0-37.9, adult; Z93.3 Colostomy status; Z93.1 Gastrostomy status; Z68.33 Body mass index [BMI] 33.0-33.9, adult; Z78.1 Physical restraint status; Z88.0 Allergy status to penicillin; Z88.8 Allergy status to other drugs, medicaments and biological substances; Z87.01 Personal history of pneumonia (recurrent); Z87.442 Personal history of urinary calculi; Z93.0 Tracheostomy status; Z74.01 Bed confinement status; Z79.890 Hormone replacement therapy; Z79.899 Other long term (current) drug therapy; V49.9XXS Car occupant (driver) (passenger) injured in unspecified traffic accident, sequela
CPT/HCPCS: 36415; 36600; 71045; 80053; 80202; 80307; 81001; 82140; 82803; 83036; 83605; 83735; 83880; 84100; 84132; 84145; 85025; 85610; 87040; 87077; 87081; 87086; 87186; 87205; 87400; 87502; 87651; 87811; 93005; 94002; 94003; 94640; 94660; 94664; 99291; A9270; J0456; J0696; J1644; J1815; J2470; J2704; J3010; J3372; J3475; J3490; J7050; P9047; Q5105

== ENCOUNTER 2024-07-16 14:11 | Inpatient (IN) | payer MEDICARE, MEDICAID, SELFPAY ==
[2024-07-16] VITALS (11 sets, daily range): BP systolic 106–139; BP diastolic 64–91; PULSE 96–111; RESP 16–87; TEMP 36.1–36.6; O2SAT 88–99; BMI 26.2
--- NOTE | 2024-07-16 14:35 | XR_ITS ---
Examination: AP chest single view Technique one AP portable upright chest single view Exam date and time: July 16, 2024 1440 hrs. Indications: Onset chest pain today. Findings: Severe left hemithorax opacity, pneumonia and significant left pleural fluid The right mediastinum in the paratracheal region appears prominent Orthopedic support rods upper dorsal spine Impression: Severe left hemithorax opacity, likely pneumonia pleural disease and volume loss Prominent right mediastinum Consider CT chest post intravenous contrast follow-up
--- NOTE | 2024-07-16 14:35 | EKG_ITS ---
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
[2024-07-16 15:32] LABS: Collection Type, Urine Catheter; Squamous Epithelial Cell,Urine 0 /hpf (0-5)
[2024-07-16 15:54] LABS: Bilirubin,Urine Negative (Negative); Blood,Urine 1+ (Negative); Color,Urine Orange (Lt Yel-Yel); Glucose, Urine Negative (Negative); Ketones,Urine Negative (Negative); Leukocyte Esterase,Urine Positive (Negative); Nitrite,Urine Negative (Negative); PH,Urine 6.5 (5.0-7.0); Protein,Urine 2+ (Neg - Trace); RBC,Urine 82 /hpf (0-3); Specific Gravity,Urine 1.011 (1.001-1.035); Urobilinogen,Urine Negative mg/dL (0.0-1.0); WBC,Urine 3101 /hpf (0-5)
[2024-07-16 15:55] LABS: Clarity,Urine Turbid (Clear/Hazy); Culture Indicated,Urine Yes
[2024-07-16] MEDS: MEROPENEM INJ 1,000 MG in SODIUM CHLORIDE 0.9% (Popper) 50 ML 100 MG IV (16:00)
[2024-07-16 16:02] LABS: Amphetamine/Methamp Scrn,U Negative (Negative); Barbiturate Screen,Urine Negative (Negative); Benzodiazepines Screen,Urine Negative (Negative); Benzoylecgonine Screen, Ur Negative (Negative); Fentanyl Screen,Urine Negative (Negative); Opiate Screen,Urine Positive (Negative); THC Screen,Urine Negative (Negative)
[2024-07-16 16:14] LABS: Basophils % (Auto) 0 % (0-2.5); Eosinophils # (Auto) 0.1 Thou/mm3 (0.0-0.5); Eosinophils % (Auto) 1 % (0-10); Hematocrit 38.6 % (41.0-53.0); Hemoglobin 11.9 g/dL (13.5-16.0); Immature Granulocytes % (Auto) 0 % (0-0); Immature Granulocytes Auto 0.04 Thou/mm3 (0.00-0.00); Lactate (Lactic Acid) 0.7 mMol/L (0.4-2.0); Lymphocytes # (Auto) 0.4 Thou/mm3 (1.0-4.8); Lymphocytes % (Auto) 3 % (10-50); Mean Corpuscular HGB Conc 30.8 g/dl (31.0-37.0); Mean Corpuscular Hemoglobin 30.7 pg (25.0-35.0); Mean Corpuscular Volume 100 fL (80-100); Monocytes % (Auto) 8 % (0-12); Neutrophils % (Auto) 88 % (37-80); Nucleated Red Blood Cell % 0 /100 WBC (0); Platelet Count 157 Thou/mm3 (140-440); RDW Standard Deviation 50.5 fL (35.1-43.9); Red Blood Count 3.87 Miln/mm3 (4.50-5.90); White Blood Count 12.6 Thou/mm3 (3.8-10.6)
[2024-07-16 16:15] LABS: Base Excess, Venous 2 (-3-3); O2 Saturation, Venous 91 % (96-97); PCO2, Venous 57 mmHg (36-56); PO2, Venous 50 mmHg (15-58); pH, Venous 7.32 (7.33-7.66)
[2024-07-16 16:30] LABS: INR 1.1 (0.9-1.3); Prothrombin Time 11.5 Seconds (9.0-12.2)
[2024-07-16 16:36] LABS: Ammonia 14 uMol/L (11-32); B-Type Natriuretic Peptide 183 pg/mL (0-100)
[2024-07-16 16:50] LABS: Alanine Aminotransferase < 7 U/L (10-49); Albumin, Serum 3.7 gm/dL (3.5-5.0); Albumin/Globulin Ratio 1.4 (1.2-2.2); Alcohol, Blood Medical < 3.0 mg/dL (0-10.0); Alkaline Phosphatase 116 U/L (46-116); Anion Gap 4 (7-16); Aspartate Amino Transferase < 8 U/L (0-34); BUN/Creatinine Ratio 7 Ratio (12-20); Bilirubin,Total 0.4 mg/dL (0.3-1.2); Blood Urea Nitrogen 19 mg/dL (9-23); Calcium 8.9 mg/dL (8.3-10.6); Calcium (Corrected) 9.1 mg/dL (8.5-10.1); Carbon Dioxide 30.1 mMol/L (20.0-31.0); Chloride 101 mMol/L (98-107); Creatinine (Component) 2.8 mg/dL (0.6-1.3); Globulin 2.7 gm/dL (2.3-3.5); Glucose 95 mg/dL (74-106); Osmolality,Calculated 272 (275-295); Potassium 4.1 mMol/L (3.4-5.1); Procalcitonin 0.26 ng/ml (0.0-0.49); Sodium 135 mMol/L (136-145); Total Protein 6.4 gm/dL (5.7-8.2); Troponin I < 0.020 ng/mL (0.0-0.045); eGFR 29 See Note
--- NOTE | 2024-07-16 16:55 | XR_ITS ---
Examination: CT chest with intravenous contrast 2-D sagittal and coronal reconstructions Exam date and time: July 08, 2027 at 1804 hrs. Indications: Difficulty breathing today, renal failure patient undergoing dialysis CTDI:vol (mGy) 22.1 DLP: (mGycm) 801 Technique: Multiple axial sections of the thorax have been obtained. Sections have been obtained, 3 mm slice thickness. Mediastinal and lung density settings have been obtained. Intravenous contrast administered, 60 cc Isovue-370. 2-D sagittal, coronal images obtained. Low dose protocols were performed. One or more of the following dose reduction techniques were used; automated exposure control, adjustment of the mA and/or KV according to patient size, use of iterative reconstruction technique. Findings: Multiple prominently right tracheobronchial high peritracheal lymph nodes No thoracic aortic aneurysm dilatation No pulmonary artery emboli on this non-CTA study Atelectasis and/or pneumonia left lung with loculated left pleural fluid which is too small for catheter drainage Moderate vascular congestion Mild pneumonia right base No focal liver or splenic lesions No pancreatic mass Severe osteopenia with transpedicular stabilization about osteoporotic compressions upper dorsal vertebral bodies Impression: Abnormal right tracheobronchial-pretracheal lymph nodes Atelectasis and/or pneumonia in the left lung with mild loculated left pleural fluid Moderate vascular congestion Mild pneumonia right base
[2024-07-16] MEDS: Vancomycin Inj 1,000 MG in SODIUM CHLORIDE 0.9% 250 ML 250 ML 150 MG IV (17:10)
[2024-07-16] MEDS: MORPHINE SULF INJ 10 MG/ML VIAL 4 MG IVP (17:33)
[2024-07-16] MEDS: ONDANSETRON INJ 2 MG/ML INJ 2 ML 4 MG IV (17:34)
--- NOTE | 2024-07-16 19:40 | PD.HHHP ---
Documentation for date of: 07/16/24 HPI - Hospitalist History of Present Illness History of present illness: Patient is a 33 years old male with past medical history of paraplegia, hypertension, ESRD on hemodialysis Friday/Friday, recurrent nephrolithiasis and UTIs, status post tracheostomy and ileostomy who presented to the ED with complaint of shortness of breath, increased cough and decreased oxygen saturation. Patient had a dialysis session today, where he was found to have worsening shortness of breath and cough and was sent to the ED. Patient was recently discharged on 06/06/2024 after being managed for acute hypoxic hypercapnic respiratory failure secondary to pneumonia. He underwent intubation and ICU stay on his last visit. Patient is states he has some chills but denies any fever, chest pain, abdominal pain. On his previous admissions, there has been concern for MERVIN and obesity hypoventilation syndrome, patient had been advised to obtain sleep study and get started on CPAP but he states that he did not get a chance to be referred for sleep study. In the ED, patient was found to agree tachycardic with pulse of 111, respiratory rate 20, saturating well on 3 L nasal cannula. Lab results show WBC of 12.6, hemoglobin 11.9, sodium 135, BUN/creatinine 19/2.8, BNP 183, lactate 0.7 and procalcitonin 0.26. VBG was obtained, shows pH of 7.32, pCO2 of 57 EKG was obtained, showed sinus tachycardia Chest x-ray shows severe left hemithorax opacity, likely pneumonia, pleural disease and volume loss CT chest shows abnormal right tracheobronchial parenchymal lymph node, atelectasis and/or pneumonia in the left lung with mild loculated left pleural fluid, moderate vascular congestion and mild pneumonia of right base In the ED, patient received IV vancomycin and meropenem, morphine and Zofran. Past medical history: Paraplegic since age of 13, ESRD with hemodialysis, recurrent nephrolithiasis and recurrent UTI Past surgical history: Status post tracheostomy and ileostomy Allergies: Anaphylaxis to Zosyn, penicillin, LIZY inhibitor Social history: Used to smoke cigarette, does not use alcohol, used to smoke marijuana Review of Systems Review of Systems Narrative Review of Systems: CONSTITUTIONAL: Denies weight loss, fever, +chills. HEENT: Denies changes in vision and hearing. RESPIRATORY: + SOB and + cough. CV: Denies palpitations and Chest Pain. GI: Denies abdominal pain, nausea, vomiting,constipation and diarrhea. : Denies dysuria and urinary frequency. MSK: +Back pain SKIN: Denies rash and pruritus. NEUROLOGICAL: Denies headache and syncope. Meds Home Medications and Allergies Home Medications ?Medication ?Instructions ?Recorded ?Confirmed ?Type gabapentin 600 mg tablet 600 mg PO TID 03/29/19 04/11/24 History cholestyramine (with sugar) 4 gram 1 ea PO BID 08/24/20 06/05/24 History powder for susp in a packet levothyroxine 25 mcg tablet 25 mcg PO QDAY 08/24/20 04/11/24 History magnesium oxide 400 mg PO BID 08/24/20 04/14/24 History sevelamer carbonate 800 mg tablet 2,400 mg PO TIDWMEAL 08/24/20 06/05/24 History cinacalcet 30 mg tablet 30 mg PO QDAY 07/10/22 04/14/24 History midodrine 10 mg tablet 10 mg PO TID PRN Hypotension 07/10/22 06/05/24 History omeprazole 40 mg capsule,delayed 40 mg PO QDAY 07/10/22 04/14/24 History release hydrocodone 10 mg-acetaminophen 1 tab PO Q6H PRN Pain (Scale Score 12/26/22 04/11/24 History 325 mg tablet 7-10) sodium bicarbonate 650 mg tablet 650 mg PO BID 12/26/22 04/14/24 History cyclobenzaprine 5 mg tablet 5 mg PO Q8HR PRN Muscle Spasm 01/19/24 06/05/24 History sodium zirconium cyclosilicate 10 10 g PO 06/05/24 History gram oral powder packet (Lokelma) Allergies Allergy/AdvReac Type Severity Reaction Status Date / Time piperacillin (From Zosyn) Allergy Severe Anaphylaxis Verified 07/16/24 14:21 tazobactam (From Zosyn) Allergy Severe Anaphylaxis Verified 07/16/24 14:21 LIZY Inhibitors Allergy Verified 07/16/24 14:21 Penicillins Allergy Anaphylaxis Verified 07/16/24 14:21 Exam Vital Signs Temp Pulse Resp BP Pulse Ox O2 Del Method O2 Flow Rate 97.9 F 108 H 19 136/64 H 92 L Nasal Cannula 3 07/16/24 18:18 07/16/24 18:18 07/16/24 18:18 07/16/24 18:18 07/16/24 18:18 07/16/24 18:18 07/16/24 18:18 Narrative General: Appeared sleepy, easily arousable no calling, tends to go back to sleep quickly, does not appear in distress, coughing noted during exam HEENT: Normocephalic, atraumatic, mucous membranes moist. Heart: Regular rate and rhythm, no murmurs, rubs or gallops. Lungs: Bilateral coarse breath sounds, more on left side Abdomen: Soft, distended due to body habitus, nontender, positive bowel sounds. ?No guarding or rebound tenderness. Neurologic: Alert and oriented x4, atrophied legs, paraplegic unable to move, Extremities: No edema, paraplegic Skin: No rash or ecchymoses. Results - Hospitalist Labs Diagrams: 07/16/24 15:55 07/16/24 15:55 Labs: Short CBC 07/16/24 Range/Units 15:55 WBC 12.6 H (3.8-10.6) Thou/mm3 Hgb 11.9 L (13.5-16.0) g/dL Hct 38.6 L (41.0-53.0) % Plt Count 157 (140-440) Thou/mm3 BMP 07/16/24 15:55 Sodium 135 L Potassium 4.1 Chloride 101 Carbon Dioxide 30.1 BUN 19 Creatinine 2.8 H Glucose 95 Calcium 8.9 Cardiac Enzymes 07/16/24 Range/Units 15:55 Troponin I < 0.020 (0.0-0.045) ng/mL Liver Function 07/16/24 Range/Units 15:55 Total Bilirubin 0.4 (0.3-1.2) mg/dL AST < 8 (0-34) U/L ALT < 7 L (10-49) U/L Alkaline Phosphatase 116 (46-116) U/L Albumin 3.7 (3.5-5.0) gm/dL Urine 07/16/24 Range/Units 15:23 Urine Color [place] A (Lt Yel-Yel) Urine Clarity Turbid A (Clear/Hazy) Urine pH 6.5 (5.0-7.0) Ur Specific [place] 1.011 (1.001-1.035) Urine Protein 2+ A (Neg - Trace) Urine Glucose (UA) Negative (Negative) ABG Interpretation ABG results: 07/16/24 15:55 VBG pH 7.32 L VBG pCO2 57 H VBG pO2 50 VBG Base Excess 2 Assessment & Plan -Hospitalist Additional Plan Additional Plan: Patient is a 33 years old male with past medical history of paraplegia, ESRD on hemodialysis, recurrent nephrolithiasis and UTI who presented to the ED with complaint of increased shortness of breath, cough. Found to have pneumonia on left lungs, loculated left pleural fluid. Being admitted for acute hypoxic hypercapnic respiratory failure. #Acute hypoxic hypercapnic respiratory failure #Sepsis #Healthcare associated pneumonia #Loculated left pleural effusion #Obstructive sleep apnea #Obesity hypoventilation syndrome Patient presented with increased shortness of breath and cough, has coarse breath sounds auscultation, CT chest shows atelectasis and/or pneumonia in the left lung with mild loculated left pleural fluid, mild pneumonia right base, VBG shows pH of 7.32, pCO2 57; CHEM panel shows carbon dioxide of 30.1 Started on IV vancomycin and Rocephin Patient currently on 3 L nasal cannula, saturating well We will order BiPAP/CPAP when patient is sleeping COVID-negative, we will obtain flu, sputum culture and Gram stain Patient meets 2/4 SIRS criteria with leukocytosis and tachycardia Bolus fluid not given, patient is on hemodialysis, chest imaging concerning for vascular congestion Blood and urine cultures obtained Plan to discuss with pulmonology tomorrow regarding loculated left pleural effusion, pleural fluid too small for catheter drainage as per radiology #ESRD on hemodialysis #Neurogenic bladder Patient goes hemodialysis on Mondays and Fridays Underwent hemodialysis today, unable to complete his session Renally dose medications Resumed home sevelamer Nephrology consult #Chronic back pain We will continue with home cyclobenzaprine and [place] As needed morphine for breakthrough pain #Hypothyroidism TSH level 1.38 on April 2024 We will continue with levothyroxine 25 daily #Normocytic anemia Likely secondary to ESRD Hemoglobin stable currently, we will monitor closely Diet: Renal diet DVT prophylaxis: Heparin subcutaneous Code: Full code Disposition: Telemetry for management of acute hypoxic hypercapnic respiratory failure secondary to pneumonia, sepsis secondary to pneumonia Laura Rivera MD Quality Measures Quality Measures none
[2024-07-16] MEDS: cefTRIAXone 2 GM in SODIUM CHLORIDE 0.9% (Popper) 50 ML IV (20:07)
[2024-07-16] MEDS: HEPARIN SOD INJ 5000 UNIT/ML VIAL SC (20:07)
--- NOTE | 2024-07-16 21:38 | PC.RT ---
Sputum sample collected and sent to lab at 1946.
--- NOTE | 2024-07-16 21:51 | PC.NURSE ---
REPORT RECEIVED FROM MAIRA AQUINO IN ED.
[2024-07-17] VITALS (30 sets, daily range): BP systolic 94–200; BP diastolic 52–112; PULSE 77–121; RESP 10–47; TEMP 36.1–36.3; O2SAT 87–100; BMI 29.5; BMI 32.1
[2024-07-17] MEDS: ALBUTEROL/IPRATROPIUM (Duoneb) RT SOL 3 ML NEBU INH ×3 (00:16→12:14)
[2024-07-17] MEDS: LEVOTHYROXINE SODIUM 25 MCG TABLET PO (05:24)
[2024-07-17] MEDS: HYDROcodone/APAP 10/325 TAB PO (05:31)
--- NOTE | 2024-07-17 05:40 | PC.NURSE ---
pt awake,alert and oriented x3, pt refuse BIPAP now and request switch to nasal cannula, Dr. Rivera notified and order pt can be on O2 NC while awake. O2 4lpm NC applied, SPO2 94-96%, HR 98, RR 20. on continuos pulse ox. call light within reach.
[2024-07-17 06:09] LABS: Basophils % (Auto) 0 % (0-2.5); Eosinophils # (Auto) 0.1 Thou/mm3 (0.0-0.5); Eosinophils % (Auto) 0 % (0-10); Hematocrit 47.2 % (41.0-53.0); Hemoglobin 14.2 g/dL (13.5-16.0); Immature Granulocytes % (Auto) 0 % (0-0); Immature Granulocytes Auto 0.05 Thou/mm3 (0.00-0.00); Lymphocytes # (Auto) 0.6 Thou/mm3 (1.0-4.8); Lymphocytes % (Auto) 5 % (10-50); Mean Corpuscular HGB Conc 30.1 g/dl (31.0-37.0); Mean Corpuscular Hemoglobin 31.3 pg (25.0-35.0); Mean Corpuscular Volume 104 fL (80-100); Monocytes # (Auto) 1.2 Thou/mm3 (0.0-0.8); Monocytes % (Auto) 9 % (0-12); Neutrophils # (Auto) 11.8 Thou/mm3 (1.8-7.7); Neutrophils % (Auto) 85 % (37-80); Nucleated Red Blood Cell % 0 /100 WBC (0); Platelet Count 113 Thou/mm3 (140-440); RDW Standard Deviation 53.5 fL (35.1-43.9); Red Blood Count 4.54 Miln/mm3 (4.50-5.90); White Blood Count 13.8 Thou/mm3 (3.8-10.6)
[2024-07-17 07:48] LABS: Alanine Aminotransferase < 7 U/L (10-49); Albumin, Serum 3.8 gm/dL (3.5-5.0); Albumin/Globulin Ratio 1.3 (1.2-2.2); Alkaline Phosphatase 120 U/L (46-116); Anion Gap 6 (7-16); Aspartate Amino Transferase < 8 U/L (0-34); BUN/Creatinine Ratio 6 Ratio (12-20); Bilirubin,Total 0.2 mg/dL (0.3-1.2); Blood Urea Nitrogen 21 mg/dL (9-23); Calcium 9.2 mg/dL (8.3-10.6); Calcium (Corrected) 9.4 mg/dL (8.5-10.1); Carbon Dioxide 28.4 mMol/L (20.0-31.0); Cardiac Risk Estimate 2.7 RATIO (4.0-6.7); Chloride 100 mMol/L (98-107); Cholesterol 98 mg/dL (132-200); Creatinine (Component) 3.6 mg/dL (0.6-1.3); Estimated Creatinine Clearance 37.9 mL/min (>60); Glucose 97 mg/dL (74-106); HDL Cholesterol 36 mg/dL (40-60); LDL Cholesterol,Calculated 38 mg/dL (0-130); Magnesium 1.9 mg/dL (1.6-2.6); Osmolality,Calculated 271 (275-295); Phosphorous 6.2 mg/dL (2.4-5.1); Sodium 134 mMol/L (136-145); Total Protein 6.8 gm/dL (5.7-8.2); Triglycerides 119 mg/dL (30-150); Vancomycin,Random 13.4 mcg/mL; eGFR 22 See Note
[2024-07-17] MEDS: SEVELAMER CARBONATE 800 MG TABLET 2400 MG PO ×2 (08:39→17:21)
[2024-07-17] MEDS: HEPARIN SOD INJ 5000 UNIT/ML VIAL SC ×2 (08:40→21:58)
[2024-07-17] MEDS: MORPHINE SULF INJ 10 MG/ML VIAL IVP (08:57)
--- NOTE | 2024-07-17 09:04 | PC.DIETICIAN ---
1. Flavored Hal 1 pkt BID daily; after lunch and dinner; mix with 6-8 oz water for targeted nutrition and wound healing, RN to administer as medication 2. RD recommends adding Vitamin C 250mg BID daily, Zinc 220mg g55ihax, Nephrovite daily to ensure adequate nutrient intake and promote wound healing.
[2024-07-17] MEDS: VANCOMYCIN/NS 500 MG IVPB 100 ML 120 MG IV (10:14)
--- NOTE | 2024-07-17 10:37 | PD.RESPRO ---
Documentation for date of: 07/17/24 Exam Vital Signs Temp Pulse Resp BP Pulse Ox O2 Del Method O2 Flow Rate 97.4 F 92 24 H 98/64 100 BiPAP 4 07/17/24 08:00 07/17/24 10:21 07/17/24 10:21 07/17/24 08:00 07/17/24 10:21 07/17/24 08:00 07/17/24 08:00 FiO2 40 07/17/24 10:21 Objective Labs 07/17/24 05:02 07/17/24 06:50 Labs: Laboratory Results - last 24 hr 07/16/24 07/16/24 07/16/24 15:21 15:23 15:55 WBC 12.6 H RBC 3.87 L Hgb 11.9 L Hct 38.6 L MCV 100 MCH 30.7 MCHC 30.8 L RDW Std Deviation 50.5 H Plt Count 157 Neut % (Auto) 88 H Lymph % (Auto) 3 L [place] % (Auto) 8 Eos % (Auto) 1 Baso % (Auto) 0 Neut # (Auto) 11.0 H Lymph # (Auto) 0.4 L [place] # (Auto) 1.0 H Eos # (Auto) 0.1 Baso # (Auto) 0.0 Immature Gran # (Auto) 0.04 H Absolute Nucleated RBC 0.00 Immature Gran % 0 Nucleated RBC % 0 PT 11.5 INR 1.1 VBG pH 7.32 L VBG pCO2 57 H VBG pO2 50 VBG O2 Sat ([place]) 91 L VBG Base Excess 2 Sodium 135 L Potassium 4.1 Chloride 101 Carbon Dioxide 30.1 Anion Gap 4 L BUN 19 Creatinine 2.8 H Estim Creat Clear Calc 44.0 L eGFR 29 L BUN/Creatinine Ratio 7 L Glucose 95 Calculated Osmolality 272 L Lactic Acid 0.7 Calcium 8.9 Corrected Calcium 9.1 Phosphorus Magnesium Total Bilirubin 0.4 AST < 8 ALT < 7 L Alkaline Phosphatase 116 Ammonia 14 Troponin I < 0.020 B-Natriuretic Peptide 183 H Total Protein 6.4 Albumin 3.7 Globulin 2.7 Albumin/Globulin Ratio 1.4 Triglycerides Cholesterol LDL Cholesterol, Calc HDL Cholesterol Cholesterol/HDL Ratio Procalcitonin 0.26 Ur Collection Type Catheter Urine Color [place] A Urine Clarity Turbid A Urine pH 6.5 Ur Specific [place] 1.011 Urine Protein 2+ A Urine Glucose (UA) Negative Urine Ketones Negative Urine Blood 1+ A Urine Nitrite Negative Urine Bilirubin Negative Urine Urobilinogen (Auto) Negative Ur Leukocyte Esterase Positive Urine RBC 82 H Urine WBC 3101 H Ur Squamous Epith Cells 0 Urine Bacteria None Ur Culture Indicated? Yes Random Vancomycin Urine Opiates Screen Positive A Urine Fentanyl Screen Negative Ur Barbiturates Screen Negative U Amphetamin/Meth Scrn Negative U Benzodiazepines Scrn Negative U Cocaine Metab Screen Negative U Marijuana (THC) Screen Negative Ethyl Alcohol < 3.0 Blood Type O Positive Antibody Screen NEGATIVE Blood Bank Wristband ID Yes 07/17/24 07/17/24 05:02 06:50 WBC 13.8 H RBC 4.54 Hgb 14.2 D Hct 47.2 MCV 104 H MCH 31.3 MCHC 30.1 L RDW Std Deviation 53.5 H Plt Count 113 L D Neut % (Auto) 85 H Lymph % (Auto) 5 L [place] % (Auto) 9 Eos % (Auto) 0 Baso % (Auto) 0 Neut # (Auto) 11.8 H Lymph # (Auto) 0.6 L [place] # (Auto) 1.2 H Eos # (Auto) 0.1 Baso # (Auto) 0.0 Immature Gran # (Auto) 0.05 H Absolute Nucleated RBC 0.00 Immature Gran % 0 Nucleated RBC % 0 PT INR VBG pH VBG pCO2 VBG pO2 VBG O2 Sat ([place]) VBG Base Excess Sodium 134 L Potassium 5.0 D Chloride 100 Carbon Dioxide 28.4 Anion Gap 6 L BUN 21 Creatinine 3.6 H D Estim Creat Clear Calc 37.9 L eGFR 22 L BUN/Creatinine Ratio 6 L Glucose 97 Calculated Osmolality 271 L Lactic Acid Calcium 9.2 Corrected Calcium 9.4 Phosphorus 6.2 H Magnesium 1.9 Total Bilirubin 0.2 L AST < 8 ALT < 7 L Alkaline Phosphatase 120 H Ammonia Troponin I B-Natriuretic Peptide Total Protein 6.8 Albumin 3.8 Globulin 3.0 Albumin/Globulin Ratio 1.3 Triglycerides 119 Cholesterol 98 L LDL Cholesterol, Calc 38 HDL Cholesterol 36 L Cholesterol/HDL Ratio 2.7 L Procalcitonin Ur Collection Type Urine Color Urine Clarity Urine pH Ur Specific [place] Urine Protein Urine Glucose (UA) Urine Ketones Urine Blood Urine Nitrite Urine Bilirubin Urine Urobilinogen (Auto) Ur Leukocyte Esterase Urine RBC Urine WBC Ur Squamous Epith Cells Urine Bacteria Ur Culture Indicated? Random Vancomycin 13.4 Urine Opiates Screen Urine Fentanyl Screen Ur Barbiturates Screen U Amphetamin/Meth Scrn U Benzodiazepines Scrn U Cocaine Metab Screen U Marijuana (THC) Screen Ethyl Alcohol Blood Type Antibody Screen Blood Bank Wristband ID ABG Interpretation ABG results: 07/16/24 15:55 VBG pH 7.32 L VBG pCO2 57 H VBG pO2 50 VBG Base Excess 2 Quality Measures Quality Measures none Assessment & Plan Assessment Current Active Medications: Generic Name Dose Route Start Last Admin Trade Name Freq PRN Reason Stop Dose Admin Acetaminophen 650 mg 07/16/24 19:23 Acetaminophen 325 Mg Tablet PO 08/15/24 19:22 Q6H PRN Fever >101.5 Acetaminophen 650 mg 07/16/24 19:23 Acetaminophen 325 Mg Tablet PO 08/15/24 19:22 Q6H PRN PAIN SCALE 1-3 (mild Hydrocodone Bitart/Acetaminophen 1 tab 07/16/24 19:23 07/17/24 05:31 Hydrocodone/Apap 10/325 Tab PO 07/21/24 19:22 1 tab Q6H PRN Administration PAIN SCALE 4-6 (Moderate Albuterol/Ipratropium 3 ml 07/17/24 01:00 07/17/24 07:15 Albuterol/Ipratropium (Duoneb) Rt [place] 3 Ml Nebu INH 08/16/24 00:59 3 ml Q6HRRT FOREIGN Administration Cyclobenzaprine HCl 5 mg 07/16/24 20:27 Cyclobenzaprine 5 Mg Tablet PO 08/15/24 20:26 TID PRN MUSCLE SPASMS Guaifenesin/Dextromethorphan 1 each 07/16/24 19:35 Guaifenesin/Dm Tablet PO 08/15/24 19:44 Q8H PRN Cough Heparin Sodium (Porcine) 5,000 unit 07/16/24 19:30 07/17/24 08:40 Heparin Sod Inj 5000 Unit/Ml Vial SC 07/30/24 19:29 5,000 unit Q12HR FOREIGN Administration Ceftriaxone Sodium 2 gm/ 50 mls @ 100 mls/hr 07/16/24 19:44 07/16/24 20:49 Sodium Chloride IV 07/23/24 19:43 Infused QDAY@1400 FOREIGN Infusion Vancomycin/Sodium Chloride 100 mls @ 120 mls/hr 07/17/24 10:00 07/17/24 10:14 Vancomycin/Ns 500 Mg Ivpb IV 07/17/24 10:49 120 mls/hr X1 ONE Administration Levothyroxine Sodium 25 mcg 07/17/24 06:00 07/17/24 05:24 Levothyroxine Sodium 25 Mcg Tablet PO 08/16/24 05:59 25 mcg ACBR FOREIGN Administration Ondansetron HCl 4 mg 07/16/24 19:23 Ondansetron Inj 2 Mg/Ml Inj 2 Ml IV 08/15/24 19:22 Q6HR PRN NAUSEA OR VOMITING Protocol Pharmacy Consult 1 each 07/17/24 09:00 Vancomycin Pharmacy To Dose 1 Each Each IV 08/16/24 08:59 QDAY PRN PROTOCOL Pharmacy Consult 1 each 07/16/24 19:41 Pharmacy Renal Dose Adjustment 1 Ea XX 08/15/24 19:40 PRN PRN CONSULT Sevelamer Carbonate 2,400 mg 07/17/24 08:00 07/17/24 08:39 Sevelamer Carbonate 800 Mg Tablet PO 08/16/24 07:59 2,400 mg TIDWM FOREIGN Administration Tramadol HCl 100 mg 07/17/24 09:48 Tramadol Hcl 50 Mg Tablet PO 07/22/24 09:47 Q4HR PRN PAIN 7-10
--- NOTE | 2024-07-17 10:57 | PC.NURSE ---
Following administration of PRN morphine, patient took his bipap off and oxygen dropped. Patient stated that I was trying to put him to sleep with the Bipap. Patient allowed me to reapply the bipap, and patient is saturating well at 98%.
--- NOTE | 2024-07-17 11:06 | PD.RESCONSUL ---
HPI Data of Consult Requesting Physician: Laura Rivera MD Admitting Provider: Lauar Rivera MD Attending Provider: Laura Rivera MD Primary Care Provider: Bryce Bunn MD Consult Narrative History of present illness: HPI : 33 years old male with past medical history of paraplegia, hypertension, ESRD on hemodialysis Friday/Friday, recurrent nephrolithiasis and UTIs, status post tracheostomy and ileostomy who presented to the ED with complaint of shortness of breath, increased cough and decreased oxygen saturation. Patient had a dialysis session on the day of admission , where he was found to have worsening shortness of breath and cough and was sent to the ED.He was recently discharged on 06/06/2024 after being managed for acute hypoxic hypercapnic respiratory failure secondary to pneumonia. He underwent intubation and ICU stay on his last visit. Patient is states he has some chills but denies any fever, chest pain, abdominal pain. On his previous admissions, there has been concern for MERVIN and obesity hypoventilation syndrome, patient had been advised to obtain sleep study and get started on CPAP but he states that he did not get a chance to be referred for sleep study.In the ED, patient was found to agree tachycardic with pulse of 111, respiratory rate 20, saturating well on 3 L nasal cannula. Lab results show WBC of 12.6, hemoglobin 11.9, sodium 135, BUN/creatinine 19/2.8, BNP 183, lactate 0.7 and procalcitonin 0.26.VBG was obtained, shows pH of 7.32, pCO2 of 57,EKG was obtained, showed sinus tachycardia Chest x-ray shows severe left hemithorax opacity, likely pneumonia, pleural disease and volume loss,CT chest shows abnormal right tracheobronchial parenchymal lymph node, atelectasis and/or pneumonia in the left lung with mild loculated left pleural fluid, moderate vascular congestion and mild pneumonia of right base. In the ED, patient received IV vancomycin and meropenem, morphine and Zofran. PMH:Paraplegic since age of 13, ESRD with hemodialysis, recurrent nephrolithiasis and recurrent UTI PSH:Status post tracheostomy and ileostomy Allergies:Anaphylaxis to Zosyn, penicillin, LIZY inhibitor Social history:Used to smoke cigarette, does not use alcohol, used to smoke marijuana On : ICU was consulted for worsening SOB and close monitoring in icu for impending respiratory failure for possible intubation . he is currently on Bipap . pt refused femoral line, peripheral line was unsucessful due to short catheter despite being placed under ultrasound guidance, and he is not able to tolerate laying flat or Tberg for longer than 2 minutes. cc:: cc: Laura Rivera MD Review of Systems Review of Systems Systems Reviewed: All systems reviewed, normal except as documented Exam Vital Signs Temp Pulse Resp BP Pulse Ox O2 Del Method O2 Flow Rate 97.4 F 92 24 H 98/64 100 BiPAP 4 07/17/24 08:00 07/17/24 10:21 07/17/24 10:21 07/17/24 08:00 07/17/24 10:21 07/17/24 08:00 07/17/24 08:00 FiO2 40 07/17/24 10:21 Narrative Exam GENERAL: morbidly obese , on Bipap HEENT: Normocephalic, atraumatic. Pupils are equal and reactive. Oral mucosa is moist. NECK: Supple, nontender, no JVD CARDIOVASCULAR: Heart regular rhythm & rate. S1/S2. no murmur or gallop rub or extra beats. LUNGS: Bilateral coarse breath sounds, more on left side ABDOMEN: Soft, flat, nontender to palpation, no guarding or rebound tenderness. Active and normal bowel sounds. EXTREMITIES:paraplegic SKIN: Warm and dry, no jaundice or rashes noted. NEURO: Patient is AO x 3, Cranial nerves II through XII grossly intact. paraplegic PSYCHIATRIC: Patient is in normal mood, cooperative, no SI or HI or hallucinations. Results Labs 07/17/24 05:02 07/17/24 06:50 Labs: Short CBC 07/16/24 07/17/24 Range/Units 15:55 05:02 WBC 12.6 H 13.8 H (3.8-10.6) Thou/mm3 Hgb 11.9 L 14.2 D (13.5-16.0) g/dL Hct 38.6 L 47.2 (41.0-53.0) % Plt Count 157 113 L D (140-440) Thou/mm3 BMP 07/16/24 07/17/24 15:55 06:50 Sodium 135 L 134 L Potassium 4.1 5.0 D Chloride 101 100 Carbon Dioxide 30.1 28.4 BUN 19 21 Creatinine 2.8 H 3.6 H D Glucose 95 97 Calcium 8.9 9.2 Cardiac Enzymes 07/16/24 Range/Units 15:55 Troponin I < 0.020 (0.0-0.045) ng/mL Liver Function 07/16/24 07/17/24 Range/Units 15:55 06:50 Total Bilirubin 0.4 0.2 L (0.3-1.2) mg/dL AST < 8 < 8 (0-34) U/L ALT < 7 L < 7 L (10-49) U/L Alkaline Phosphatase 116 120 H (46-116) U/L Albumin 3.7 3.8 (3.5-5.0) gm/dL Urine 07/16/24 Range/Units 15:23 Urine Color [place] A (Lt Yel-Yel) Urine Clarity Turbid A (Clear/Hazy) Urine pH 6.5 (5.0-7.0) Ur Specific [place] 1.011 (1.001-1.035) Urine Protein 2+ A (Neg - Trace) Urine Glucose (UA) Negative (Negative) ABG Interpretation ABG results: 07/16/24 15:55 VBG pH 7.32 L VBG pCO2 57 H VBG pO2 50 VBG Base Excess 2 Quality Measures Quality Measures none Medications Home Medications and Allergies Home Medications ?Medication ?Instructions ?Recorded ?Confirmed ?Type gabapentin 600 mg tablet 600 mg PO TID 03/29/19 04/11/24 History cholestyramine (with sugar) 4 gram 1 ea PO BID 08/24/20 06/05/24 History powder for susp in a packet levothyroxine 25 mcg tablet 25 mcg PO QDAY 08/24/20 04/11/24 History magnesium oxide 400 mg PO BID 08/24/20 04/14/24 History sevelamer carbonate 800 mg tablet 2,400 mg PO TIDWMEAL 08/24/20 06/05/24 History cinacalcet 30 mg tablet 30 mg PO QDAY 07/10/22 04/14/24 History midodrine 10 mg tablet 10 mg PO TID PRN Hypotension 07/10/22 06/05/24 History omeprazole 40 mg capsule,delayed 40 mg PO QDAY 07/10/22 04/14/24 History release hydrocodone 10 mg-acetaminophen 1 tab PO Q6H PRN Pain (Scale Score 12/26/22 04/11/24 History 325 mg tablet 7-10) sodium bicarbonate 650 mg tablet 650 mg PO BID 12/26/22 04/14/24 History cyclobenzaprine 5 mg tablet 5 mg PO Q8HR PRN Muscle Spasm 01/19/24 06/05/24 History sodium zirconium cyclosilicate 10 10 g PO 06/05/24 History gram oral powder packet (Lokelma) Allergies Allergy/AdvReac Type Severity Reaction Status Date / Time piperacillin (From Zosyn) Allergy Severe Anaphylaxis Verified 07/16/24 14:21 tazobactam (From Zosyn) Allergy Severe Anaphylaxis Verified 07/16/24 14:21 LIZY Inhibitors Allergy Verified 07/16/24 14:21 Penicillins Allergy Anaphylaxis Verified 07/16/24 14:21 Visit Medications Acetaminophen (Acetaminophen 325 Mg Tablet) 650 mg PO Q6H PRN PRN Reason: Fever >101.5 Stop: 08/15/24 19:22 Acetaminophen (Acetaminophen 325 Mg Tablet) 650 mg PO Q6H PRN PRN Reason: PAIN SCALE 1-3 (mild Stop: 08/15/24 19:22 Hydrocodone Bitart/Acetaminophen (Hydrocodone/Apap 10/325 Tab) 1 tab PO Q6H PRN PRN Reason: PAIN SCALE 4-6 (Moderate Stop: 07/21/24 19:22 Last Admin: 07/17/24 05:31 Dose: 1 tab Albuterol/Ipratropium (Albuterol/Ipratropium (Duoneb) Rt [place] 3 Ml Nebu) 3 ml INH Q6HRRT FOREIGN Stop: 08/16/24 00:59 Last Admin: 07/17/24 07:15 Dose: 3 ml Cyclobenzaprine HCl (Cyclobenzaprine 5 Mg Tablet) 5 mg PO TID PRN PRN Reason: MUSCLE SPASMS Stop: 08/15/24 20:26 Guaifenesin/Dextromethorphan (Guaifenesin/Dm Tablet) 1 each PO Q8H PRN PRN Reason: Cough Stop: 08/15/24 19:44 Heparin Sodium (Porcine) (Heparin Sod Inj 5000 Unit/Ml Vial) 5,000 unit SC Q12HR FOREIGN Stop: 07/30/24 19:29 Last Admin: 07/17/24 08:40 Dose: 5,000 unit Ceftriaxone Sodium 2 gm/ (Sodium Chloride) 50 mls @ 100 mls/hr IV QDAY@1400 [facility] Stop: 07/23/24 19:43 Last Infusion: 07/16/24 20:49 Dose: Infused Levothyroxine Sodium (Levothyroxine Sodium 25 Mcg Tablet) 25 mcg PO ACBR [facility] Stop: 08/16/24 05:59 Last Admin: 07/17/24 05:24 Dose: 25 mcg Ondansetron HCl (Ondansetron Inj 2 Mg/Ml Inj 2 Ml) 4 mg IV Q6HR PRN; Protocol PRN Reason: NAUSEA OR VOMITING Stop: 08/15/24 19:22 Pharmacy Consult (Vancomycin Pharmacy To Dose 1 Each Each) 1 each IV QDAY PRN PRN Reason: PROTOCOL Stop: 08/16/24 08:59 Pharmacy Consult (Pharmacy Renal Dose Adjustment 1 Ea) 1 each XX PRN PRN PRN Reason: CONSULT Stop: 08/15/24 19:40 Sevelamer Carbonate (Sevelamer Carbonate 800 Mg Tablet) 2,400 mg PO TIDWM [facility] Stop: 08/16/24 07:59 Last Admin: 07/17/24 08:39 Dose: 2,400 mg Tramadol HCl (Tramadol Hcl 50 Mg Tablet) 100 mg PO Q4HR PRN PRN Reason: PAIN 7-10 Stop: 07/22/24 09:47 Discontinued Medications Meropenem 1,000 mg/ Sodium (Chloride) 50 mls @ 100 mls/hr IV X1 ONE Stop: 07/16/24 14:37 Last Infusion: 07/16/24 17:12 Dose: Infused Vancomycin HCl 1,000 mg/ (Sodium Chloride) 250 mls @ 150 mls/hr IV X1 ONE Stop: 07/16/24 18:38 Last Infusion: 07/16/24 20:02 Dose: Infused Vancomycin/Sodium Chloride (Vancomycin/Ns 500 Mg Ivpb) 100 mls @ 120 mls/hr IV X1 ONE Stop: 07/17/24 10:49 Last Admin: 07/17/24 10:14 Dose: 120 mls/hr Morphine Sulfate (Morphine Sulf Inj 10 Mg/Ml Vial) 4 mg IVP X1 ONE Stop: 07/16/24 17:18 Last Admin: 07/16/24 17:33 Dose: 4 mg Morphine Sulfate (Morphine Sulf Inj 10 Mg/Ml Vial) 1 mg IVP Q6H PRN PRN Reason: PAIN SCALE 7-10 (Severe Stop: 07/21/24 19:22 Last Admin: 07/17/24 08:57 Dose: 1 mg Ondansetron HCl (Ondansetron Inj 2 Mg/Ml Inj 2 Ml) 4 mg IV X1 ONE; Protocol Stop: 07/16/24 17:18 Last Admin: 07/16/24 17:34 Dose: 4 mg Sodium Chloride (Sodium Chloride Rt 10% 15 Ml Nebu) 5 ml INH X1 ONE Stop: 07/16/24 19:42 Assessment & Plan Plan Patient is a 33 years old male with past medical history of paraplegia, ESRD on hemodialysis, recurrent nephrolithiasis and UTI who presented to the ED with complaint of increased shortness of breath, cough. Found to have pneumonia on left lungs, loculated left pleural fluid. Being admitted for acute hypoxic hypercapnic respiratory failure. NEURO mild lethargic , likely secondary to morphine vs MERVIN vs Obesity hypoventillation syndrome CVS Tachycardia - likely sec to pain vs anxiety -EKG sinus tachycardia PULMONOLOGY #Acute hypoxic hypercapnic respiratory failure #Healthcare associated pneumonia #Loculated left pleural effusion -Patient presented with increased shortness of breath and cough, has coarse breath sounds auscultation, -CT chest shows atelectasis and/or pneumonia in the left lung with mild loculated left pleural fluid, mild pneumonia right base, -VBG shows pH of 7.32, pCO2 57; CHEM panel shows carbon dioxide of 28.4 -He was on IV vancomycin and Rocephin, discontinued rocephen and added cefepime -Currently on Bipap -COVID-negative, Flu negative, influnza negatve -sputum culture and Gram stain- pending -pleural fluid too small for catheter drainage as per radiology #Obstructive sleep apnea #Obesity hypoventilation syndrome -currently on Bipap , he will need out patient sleep studies and Cpap at home INFECTIOUS #Sepsis -Patient meets 2/4 SIRS criteria with leukocytosis and tachycardia -Bolus fluid not given, patient is on hemodialysis, chest imaging concerning for vascular congestion -Blood and urine cultures pending -He was on IV vancomycin and Rocephin, discontinued rocephen and added cefepime Covid- negative flu- negative RSV- negative RENAL #ESRD on hemodialysis #Neurogenic bladder -Patient goes hemodialysis on Mondays and Fridays -Underwent hemodialysis on admission , unable to complete his session -Renally dose medications -brody's catheter in place -Dr Haines on board #hyperphospatemia -Continue home sevelamer -Nephrology consult ENDO #Hypothyroidism TSH level 1.38 on April 2024 We will continue with levothyroxine 25 daily Heme #Normocytic anemia Likely secondary to ESRD Hemoglobin stable currently, we will monitor closely GI On protonix MSK #Chronic back pain - will do diludid prn for pain -avoid morphine Diet: Renal diet DVT prophylaxis: Heparin subcutaneous GI : protonix Code: Full code Disposition:ICU for management of acute hypoxic hypercapnic respiratory failure secondary to pneumonia, sepsis secondary to pneumonia Case discussed with my attending Dr Shamika Masters,PGY-3
--- NOTE | 2024-07-17 11:21 | ESPR_ITS ---
Documentation for date of: 07/17/24 Subjective Subjective Interval history: No overnight events. Patient seen and examined at bedside. Patient notably lethargic, but arousable to verbal stimuli. Patient endorses mild shortness of breath, but overall fairly uncooperative. Complains of lower back pain requesting pain meds. Patient removed his BiPAP despite medical advice, the BiPAP was replaced after patient fell asleep. Discussed case with pulmonology, he used ultrasound to evaluate possible loculated pleural effusion on left side, did not find enough fluid to attempt drainage. Patient upgraded to ICU for close monitoring given worsening respiratory status on BiPAP and lethargy. Exam Vital Signs Temp Pulse Resp BP Pulse Ox O2 Del Method O2 Flow Rate 97.4 F 92 24 H 98/64 100 BiPAP 4 07/17/24 08:00 07/17/24 10:21 07/17/24 10:21 07/17/24 08:00 07/17/24 10:21 07/17/24 08:00 07/17/24 09:00 FiO2 40 07/17/24 10:21 Narrative Exam PE: Gen: Well-developed and well-nourished. Obese. Lethargic. HEENT: NCAT, PERRLA, EOMI, MMM, anicteric conjunctivae. CVS: normal S1 and S2. RRR. No M/R/G. Resp: Poor lung sounds due to body habitus. Rhonchi left lower lung field. Abd: soft, non-tender, non-distended. PEG tube, not currently in use. Ileostomy bag. MSK: Good ROM in BUE & BLE. No edema or rash. Neuro: CN II-XII grossly intact. Strength 5/5 in BUE. Alert and oriented x3. Paraplegic. Objective Labs 07/17/24 05:02 07/17/24 06:50 Labs: Laboratory Results - last 24 hr 07/16/24 07/16/24 07/16/24 15:21 15:23 15:55 WBC 12.6 H RBC 3.87 L Hgb 11.9 L Hct 38.6 L MCV 100 MCH 30.7 MCHC 30.8 L RDW Std Deviation 50.5 H Plt Count 157 Neut % (Auto) 88 H Lymph % (Auto) 3 L [place] % (Auto) 8 Eos % (Auto) 1 Baso % (Auto) 0 Neut # (Auto) 11.0 H Lymph # (Auto) 0.4 L [place] # (Auto) 1.0 H Eos # (Auto) 0.1 Baso # (Auto) 0.0 Immature Gran # (Auto) 0.04 H Absolute Nucleated RBC 0.00 Immature Gran % 0 Nucleated RBC % 0 PT 11.5 INR 1.1 VBG pH 7.32 L VBG pCO2 57 H VBG pO2 50 VBG O2 Sat (Lalo) 91 L VBG Base Excess 2 Sodium 135 L Potassium 4.1 Chloride 101 Carbon Dioxide 30.1 Anion Gap 4 L BUN 19 Creatinine 2.8 H Estim Creat Clear Calc 44.0 L eGFR 29 L BUN/Creatinine Ratio 7 L Glucose 95 Calculated Osmolality 272 L Lactic Acid 0.7 Calcium 8.9 Corrected Calcium 9.1 Phosphorus Magnesium Total Bilirubin 0.4 AST < 8 ALT < 7 L Alkaline Phosphatase 116 Ammonia 14 Troponin I < 0.020 B-Natriuretic Peptide 183 H Total Protein 6.4 Albumin 3.7 Globulin 2.7 Albumin/Globulin Ratio 1.4 Triglycerides Cholesterol LDL Cholesterol, Calc HDL Cholesterol Cholesterol/HDL Ratio Procalcitonin 0.26 Ur Collection Type Catheter Urine Color [place] A Urine Clarity Turbid A Urine pH 6.5 Ur Specific [place] 1.011 Urine Protein 2+ A Urine Glucose (UA) Negative Urine Ketones Negative Urine Blood 1+ A Urine Nitrite Negative Urine Bilirubin Negative Urine Urobilinogen (Auto) Negative Ur Leukocyte Esterase Positive Urine RBC 82 H Urine WBC 3101 H Ur Squamous Epith Cells 0 Urine Bacteria None Ur Culture Indicated? Yes Random Vancomycin Urine Opiates Screen Positive A Urine Fentanyl Screen Negative Ur Barbiturates Screen Negative U Amphetamin/Meth Scrn Negative U Benzodiazepines Scrn Negative U Cocaine Metab Screen Negative U Marijuana (THC) Screen Negative Ethyl Alcohol < 3.0 Blood Type O Positive Antibody Screen NEGATIVE Blood Bank Wristband ID Yes 07/17/24 07/17/24 05:02 06:50 WBC 13.8 H RBC 4.54 Hgb 14.2 D Hct 47.2 MCV 104 H MCH 31.3 MCHC 30.1 L RDW Std Deviation 53.5 H Plt Count 113 L D Neut % (Auto) 85 H Lymph % (Auto) 5 L [place] % (Auto) 9 Eos % (Auto) 0 Baso % (Auto) 0 Neut # (Auto) 11.8 H Lymph # (Auto) 0.6 L [place] # (Auto) 1.2 H Eos # (Auto) 0.1 Baso # (Auto) 0.0 Immature Gran # (Auto) 0.05 H Absolute Nucleated RBC 0.00 Immature Gran % 0 Nucleated RBC % 0 PT INR VBG pH VBG pCO2 VBG pO2 VBG O2 Sat (Lalo) VBG Base Excess Sodium 134 L Potassium 5.0 D Chloride 100 Carbon Dioxide 28.4 Anion Gap 6 L BUN 21 Creatinine 3.6 H D Estim Creat Clear Calc 37.9 L eGFR 22 L BUN/Creatinine Ratio 6 L Glucose 97 Calculated Osmolality 271 L Lactic Acid Calcium 9.2 Corrected Calcium 9.4 Phosphorus 6.2 H Magnesium 1.9 Total Bilirubin 0.2 L AST < 8 ALT < 7 L Alkaline Phosphatase 120 H Ammonia Troponin I B-Natriuretic Peptide Total Protein 6.8 Albumin 3.8 Globulin 3.0 Albumin/Globulin Ratio 1.3 Triglycerides 119 Cholesterol 98 L LDL Cholesterol, Calc 38 HDL Cholesterol 36 L Cholesterol/HDL Ratio 2.7 L Procalcitonin Ur Collection Type Urine Color Urine Clarity Urine pH Ur Specific [place] Urine Protein Urine Glucose (UA) Urine Ketones Urine Blood Urine Nitrite Urine Bilirubin Urine Urobilinogen (Auto) Ur Leukocyte Esterase Urine RBC Urine WBC Ur Squamous Epith Cells Urine Bacteria Ur Culture Indicated? Random Vancomycin 13.4 Urine Opiates Screen Urine Fentanyl Screen Ur Barbiturates Screen U Amphetamin/Meth Scrn U Benzodiazepines Scrn U Cocaine Metab Screen U Marijuana (THC) Screen Ethyl Alcohol Blood Type Antibody Screen Blood Bank Wristband ID ABG Interpretation ABG results: 07/16/24 15:55 VBG pH 7.32 L VBG pCO2 57 H VBG pO2 50 VBG Base Excess 2 Quality Measures Quality Measures none Assessment & Plan Assessment Current Active Medications: Generic Name Dose Route Start Last Admin Trade Name Freq PRN Reason Stop Dose Admin Acetaminophen 650 mg 07/16/24 19:23 Acetaminophen 325 Mg Tablet PO 08/15/24 19:22 Q6H PRN Fever >101.5 Acetaminophen 650 mg 07/16/24 19:23 Acetaminophen 325 Mg Tablet PO 08/15/24 19:22 Q6H PRN PAIN SCALE 1-3 (mild Hydrocodone Bitart/Acetaminophen 1 tab 07/16/24 19:23 07/17/24 05:31 Hydrocodone/Apap 10/325 Tab PO 07/21/24 19:22 1 tab Q6H PRN Administration PAIN SCALE 4-6 (Moderate Albuterol/Ipratropium 3 ml 07/17/24 01:00 07/17/24 07:15 Albuterol/Ipratropium (Duoneb) Rt [place] 3 Ml Nebu INH 08/16/24 00:59 3 ml Q6HRRT FOREIGN Administration Cyclobenzaprine HCl 5 mg 07/16/24 20:27 Cyclobenzaprine 5 Mg Tablet PO 08/15/24 20:26 TID PRN MUSCLE SPASMS Guaifenesin/Dextromethorphan 1 each 07/16/24 19:35 Guaifenesin/Dm Tablet PO 08/15/24 19:44 Q8H PRN Cough Heparin Sodium (Porcine) 5,000 unit 07/16/24 19:30 07/17/24 08:40 Heparin Sod Inj 5000 Unit/Ml Vial SC 07/30/24 19:29 5,000 unit Q12HR FOREIGN Administration Ceftriaxone Sodium 2 gm/ 50 mls @ 100 mls/hr 07/16/24 19:44 07/16/24 20:49 Sodium Chloride IV 07/23/24 19:43 Infused QDAY@1400 FOREIGN Infusion Levothyroxine Sodium 25 mcg 07/17/24 06:00 07/17/24 05:24 Levothyroxine Sodium 25 Mcg Tablet PO 08/16/24 05:59 25 mcg ACBR FOREIGN Administration Ondansetron HCl 4 mg 07/16/24 19:23 Ondansetron Inj 2 Mg/Ml Inj 2 Ml IV 08/15/24 19:22 Q6HR PRN NAUSEA OR VOMITING Protocol Pharmacy Consult 1 each 07/17/24 09:00 Vancomycin Pharmacy To Dose 1 Each Each IV 08/16/24 08:59 QDAY PRN PROTOCOL Pharmacy Consult 1 each 07/16/24 19:41 Pharmacy Renal Dose Adjustment 1 Ea XX 08/15/24 19:40 PRN PRN CONSULT Sevelamer Carbonate 2,400 mg 07/17/24 08:00 07/17/24 08:39 Sevelamer Carbonate 800 Mg Tablet PO 08/16/24 07:59 2,400 mg TIDWM FOREIGN Administration Tramadol HCl 100 mg 07/17/24 09:48 Tramadol Hcl 50 Mg Tablet PO 07/22/24 09:47 Q4HR PRN PAIN 7-10 Plan 33 years old male with past medical history of paraplegia, ESRD on hemodialysis, recurrent nephrolithiasis and UTI who presented to the ED with complaint of increased shortness of breath, cough. Found to have pneumonia on left lungs, loculated left pleural fluid. Being admitted for acute hypoxic hypercapnic respiratory failure. #Acute hypoxic hypercapnic respiratory failure #Sepsis #Healthcare associated pneumonia #Loculated left pleural effusion #Obstructive sleep apnea #Obesity hypoventilation syndrome Patient presented with increased shortness of breath and cough, has coarse breath sounds auscultation, CT chest shows atelectasis and/or pneumonia in the left lung with mild loculated left pleural fluid, mild pneumonia right base, VBG shows pH of 7.32, pCO2 57; CHEM panel shows carbon dioxide of 30.1 Started on IV vancomycin and Rocephin COVID-negative, we will obtain flu Patient meets 2/4 SIRS criteria with leukocytosis and tachycardia Bolus fluid not given, patient is on hemodialysis, chest imaging concerning for vascular congestion Used ultrasound to evaluate potential loculated pleural effusion, not enough fluid to drain -Vancomycin and Rocephin -Follow-up blood and urine culture -Follow-up sputum culture and Gram stain -BiPAP during sleep -Patient upgraded to ICU due to poor tidal volumes on BiPAP and lethargy #ESRD on hemodialysis #Neurogenic bladder Patient goes hemodialysis on Mondays and Fridays. Underwent hemodialysis today, unable to complete his session. -Avoid nephrotoxic meds -Renally dose medications -Resumed home sevelamer -Nephrology consult, recommendations appreciated #Chronic back pain -continue with home cyclobenzaprine and [place] -Tramadol as needed for breakthrough pain #Hypothyroidism TSH level 1.38 on April 2024 -continue with levothyroxine 25 daily #Normocytic anemia Likely secondary to ESRD Hemoglobin stable currently -monitor closely DVT prophylaxis: Heparin GI prophylaxis: None Diet: Renal Lines: PEG tube, ileostomy, peripheral IV Code status: Full code Plan of care discussed with attending Dr. Palumbo. Ronak Morton MD PGY-1 Attending Provider Attestation/Addendum Patient was seen and examined. The patient will be transferred to the ICU. He was seen on BiPAP. He has respiratory failure. He has significant left-sided pneumonia. The patient is on IV antibiotics. He is on hemodialysis. I discussed with and supervised the resident physician who took care of this patient. I agree with the assessment and plan as above.
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
[2024-07-17] MEDS: CEFEPIME INJ 2 GM in SODIUM CHLORIDE 0.9% (Popper) 50 ML IV ×2 (13:29→21:58)
--- NOTE | 2024-07-17 16:03 | PC.SS ---
Patient transferred to ICU. Patient's mother Juliana Matson provided information for initial assessment. Patient's mother confirmed demographic information. She explained patient lives with sibling who is also his [facility] insulator tester. Patient is max assist with ADL completion and max assist with ambulation. Patient utilizes a wheelchair to ambulate. Per patient's mother, patient is paralyzed and requires maximum assistance with everything. Patient's mother Juliana stated patient utilizes oxygen at home on a nightly basis, unable to confirm liter amount. Patient attends dialysis sessions Mondays and Fridays, 10AM. PCP: Bryce Bunn, [facility]. Discharge plan: Home, [place] transport needed. Medical surrogate decision maker: Mother Juliana Matson [phone].
[2024-07-17] MEDS: PANTOPRAZOLE INJ 40 MG VIAL IV (16:19)
[2024-07-17] MEDS: HYDROmorphone INJ 2 MG/ML VIAL 0.5 MG IVP ×2 (16:19→18:06)
[2024-07-17] MEDS: HYDROmorphone INJ 2 MG/ML VIAL 1 MG IVP ×2 (19:48→23:56)
[2024-07-17] MEDS: CYCLObenzaPRINE 5 MG TABLET PO (20:14)
[2024-07-17] MEDS: GABAPENTIN 300 MG CAPSULE 600 MG PO (22:53)
[2024-07-18] VITALS (29 sets, daily range): BP systolic 99–145; BP diastolic 56–82; PULSE 85–123; RESP 10–23; TEMP 36.1–36.7; O2SAT 91–100
[2024-07-18] MEDS: ALBUTEROL/IPRATROPIUM (Duoneb) RT SOL 3 ML NEBU INH ×4 (01:05→18:59)
[2024-07-18 01:49] LABS: Albumin, Serum 3.7 gm/dL (3.5-5.0); Albumin/Globulin Ratio 1.3 (1.2-2.2); Alkaline Phosphatase 117 U/L (46-116); Anion Gap 6 (7-16); Aspartate Amino Transferase < 8 U/L (0-34); BUN/Creatinine Ratio 7 Ratio (12-20); Bilirubin,Total < 0.2 mg/dL (0.3-1.2); Blood Urea Nitrogen 31 mg/dL (9-23); Calcium 8.9 mg/dL (8.3-10.6); Calcium (Corrected) 9.1 mg/dL (8.5-10.1); Carbon Dioxide 26.9 mMol/L (20.0-31.0); Chloride 99 mMol/L (98-107); Creatinine (Component) 4.4 mg/dL (0.6-1.3); Estimated Creatinine Clearance 32.4 mL/min (>60); Globulin 2.9 gm/dL (2.3-3.5); Glucose 123 mg/dL (74-106); Osmolality,Calculated 272 (275-295); Phosphorous 4.2 mg/dL (2.4-5.1); Potassium 4.5 mMol/L (3.4-5.1); Sodium 132 mMol/L (136-145); Total Protein 6.6 gm/dL (5.7-8.2); eGFR 17 See Note
[2024-07-18 01:54] LABS: Alanine Aminotransferase < 7 U/L (10-49)
[2024-07-18] MEDS: HYDROmorphone INJ 2 MG/ML VIAL 1 MG IVP ×4 (04:09→21:38)
[2024-07-18] MEDS: LEVOTHYROXINE SODIUM 25 MCG TABLET PO (05:23)
[2024-07-18] MEDS: CYCLObenzaPRINE 5 MG TABLET PO (05:23)
[2024-07-18] MEDS: GABAPENTIN 300 MG CAPSULE 600 MG PO ×2 (05:23→21:38)
[2024-07-18 05:51] LABS: Alanine Aminotransferase < 7 U/L (10-49); Albumin, Serum 3.4 gm/dL (3.5-5.0); Albumin/Globulin Ratio 1.4 (1.2-2.2); Alkaline Phosphatase 113 U/L (46-116); Anion Gap 7 (7-16); Aspartate Amino Transferase < 8 U/L (0-34); BUN/Creatinine Ratio 8 Ratio (12-20); Bilirubin,Total 0.2 mg/dL (0.3-1.2); Blood Urea Nitrogen 36 mg/dL (9-23); Calcium 8.3 mg/dL (8.3-10.6); Calcium (Corrected) 8.8 mg/dL (8.5-10.1); Carbon Dioxide 26.4 mMol/L (20.0-31.0); Chloride 101 mMol/L (98-107); Creatinine (Component) 4.4 mg/dL (0.6-1.3); Estimated Creatinine Clearance 32.4 mL/min (>60); Globulin 2.5 gm/dL (2.3-3.5); Glucose 125 mg/dL (74-106); Magnesium 1.8 mg/dL (1.6-2.6); Osmolality,Calculated 277 (275-295); Phosphorous 4.3 mg/dL (2.4-5.1); Potassium 4.7 mMol/L (3.4-5.1); Sodium 134 mMol/L (136-145); Total Protein 5.9 gm/dL (5.7-8.2); Vancomycin,Random 14.9 mcg/mL; eGFR 17 See Note
[2024-07-18 05:56] LABS: Basophils % (Auto) 0 % (0-2.5); Eosinophils # (Auto) 0.1 Thou/mm3 (0.0-0.5); Eosinophils % (Auto) 1 % (0-10); Hematocrit 36.6 % (41.0-53.0); Hemoglobin 11.1 g/dL (13.5-16.0); Immature Granulocytes % (Auto) 1 % (0-0); Immature Granulocytes Auto 0.05 Thou/mm3 (0.00-0.00); Lymphocytes # (Auto) 0.6 Thou/mm3 (1.0-4.8); Lymphocytes % (Auto) 6 % (10-50); Mean Corpuscular HGB Conc 30.3 g/dl (31.0-37.0); Mean Corpuscular Volume 102 fL (80-100); Monocytes # (Auto) 0.8 Thou/mm3 (0.0-0.8); Monocytes % (Auto) 8 % (0-12); Neutrophils # (Auto) 8.5 Thou/mm3 (1.8-7.7); Neutrophils % (Auto) 84 % (37-80); Nucleated Red Blood Cell % 0 /100 WBC (0); Platelet Count 129 Thou/mm3 (140-440); Red Blood Count 3.58 Miln/mm3 (4.50-5.90); White Blood Count 10.2 Thou/mm3 (3.8-10.6)
[2024-07-18] MEDS: SEVELAMER CARBONATE 800 MG TABLET 2400 MG PO ×3 (07:40→17:31)
[2024-07-18] MEDS: CEFEPIME INJ 2 GM in SODIUM CHLORIDE 0.9% (Popper) 50 ML IV ×2 (08:55→21:39)
[2024-07-18] MEDS: PANTOPRAZOLE INJ 40 MG VIAL IV (08:56)
[2024-07-18] MEDS: HEPARIN SOD INJ 5000 UNIT/ML VIAL SC ×2 (08:57→21:38)
--- NOTE | 2024-07-18 09:03 | ESPR_ITS ---
Documentation for date of: 07/18/24 Subjective Subjective Interval history: HPI : 33 years old male with past medical history of paraplegia, hypertension, ESRD on hemodialysis Friday/Friday, recurrent nephrolithiasis and UTIs, status post tracheostomy and ileostomy who presented to the ED with complaint of shortness of breath, increased cough and decreased oxygen saturation. Patient had a dialysis session on the day of admission , where he was found to have worsening shortness of breath and cough and was sent to the ED.He was recently discharged on 06/06/2024 after being managed for acute hypoxic hypercapnic respiratory failure secondary to pneumonia. He underwent intubation and ICU stay on his last visit. Patient is states he has some chills but denies any fever, chest pain, abdominal pain. On his previous admissions, there has been concern for MERVIN and obesity hypoventilation syndrome, patient had been advised to obtain sleep study and get started on CPAP but he states that he did not get a chance to be referred for sleep study.In the ED, patient was found to agree tachycardic with pulse of 111, respiratory rate 20, saturating well on 3 L nasal cannula. Lab results show WBC of 12.6, hemoglobin 11.9, sodium 135, BUN/creatinine 19/2.8, BNP 183, lactate 0.7 and procalcitonin 0.26.VBG was obtained, shows pH of 7.32, pCO2 of 57,EKG was obtained, showed sinus tachycardia Chest x-ray shows severe left hemithorax opacity, likely pneumonia, pleural disease and volume loss,CT chest shows abnormal right tracheobronchial parenchymal lymph node, atelectasis and/or pneumonia in the left lung with mild loculated left pleural fluid, moderate vascular congestion and mild pneumonia of right base. In the ED, patient received IV vancomycin and meropenem, morphine and Zofran. PMH:Paraplegic since age of 13, ESRD with hemodialysis, recurrent nephrolithiasis and recurrent UTI PSH:Status post tracheostomy and ileostomy Allergies:Anaphylaxis to Zosyn, penicillin, LIZY inhibitor Social history:Used to smoke cigarette, does not use alcohol, used to smoke marijuana On : ICU was consulted for worsening SOB and close monitoring in icu for impending respiratory failure for possible intubation . he is currently on Bipap . pt refused femoral line, peripheral line was unsucessful due to short catheter despite being placed under ultrasound guidance, and he is not able to tolerate laying flat or Tberg for longer than 2 minutes. 07/18/2024: Patient was examined bedside this morning, he was comfortably sleeping in bed with 2 L of oxygen via nasal cannula. No acute overnight event. Will continue BiPAP overnight continue IV antibiotics, cocci was negative, blood cultures -24-hour, MRSA nares pending, urine culture pending.patient will be downgraded back to telemetry back to [facility] . Exam Vital Signs Temp Pulse Resp BP Pulse Ox O2 Del Method O2 Flow Rate 97.4 F 96 22 H 130/59 L 100 Nasal Cannula 3 07/18/24 04:00 07/18/24 07:01 07/18/24 07:01 07/18/24 07:01 07/18/24 07:01 07/18/24 04:00 07/18/24 01:05 FiO2 30 07/18/24 06:52 Narrative Exam GENERAL: morbidly obese ,on NC 2L HEENT: Normocephalic, atraumatic. Pupils are equal and reactive. Oral mucosa is moist. NECK: Supple, nontender, no JVD CARDIOVASCULAR: Heart regular rhythm & rate. S1/S2. no murmur or gallop rub or extra beats. LUNGS: Bilateral coarse breath sounds, more on left side ABDOMEN: Soft, flat, nontender to palpation, no guarding or rebound tenderness. Active and normal bowel sounds. EXTREMITIES:paraplegic SKIN: Warm and dry, no jaundice or rashes noted. NEURO: Patient is AO x 3, Cranial nerves II through XII grossly intact. paraplegic PSYCHIATRIC: Patient is in normal mood, cooperative, no SI or HI or hallucinations. Objective Labs 07/18/24 04:26 07/18/24 04:26 Labs: Laboratory Results - last 24 hr 07/18/24 07/18/24 00:47 04:26 WBC 10.2 RBC 3.58 L Hgb 11.1 L D Hct 36.6 L D MCV 102 H MCH 31.0 MCHC 30.3 L RDW Std Deviation 53.0 H Plt Count 129 L Neut % (Auto) 84 H Lymph % (Auto) 6 L Barnes % (Auto) 8 Eos % (Auto) 1 Baso % (Auto) 0 Neut # (Auto) 8.5 H Lymph # (Auto) 0.6 L Barnes # (Auto) 0.8 Eos # (Auto) 0.1 Baso # (Auto) 0.0 Immature Gran # (Auto) 0.05 H Absolute Nucleated RBC 0.00 Immature Gran % 1 H Nucleated RBC % 0 Sodium 132 L 134 L Potassium 4.5 D 4.7 Chloride 99 101 Carbon Dioxide 26.9 26.4 Anion Gap 6 L 7 BUN 31 H 36 H Creatinine 4.4 H* D 4.4 H* Estim Creat Clear Calc 32.4 L 32.4 L eGFR 17 L 17 L BUN/Creatinine Ratio 7 L 8 L Glucose 123 H 125 H Calculated Osmolality 272 L 277 Calcium 8.9 8.3 Corrected Calcium 9.1 8.8 Phosphorus 4.2 4.3 Magnesium 1.8 Total Bilirubin < 0.2 L 0.2 L AST < 8 < 8 ALT < 7 L < 7 L Alkaline Phosphatase 117 H 113 Total Protein 6.6 5.9 Albumin 3.7 3.4 L Globulin 2.9 2.5 Albumin/Globulin Ratio 1.3 1.4 Random Vancomycin 14.9 ABG Interpretation ABG results: 07/16/24 15:55 VBG pH 7.32 L VBG pCO2 57 H VBG pO2 50 VBG Base Excess 2 Quality Measures Quality Measures none Assessment & Plan Assessment Current Active Medications: Generic Name Dose Route Start Last Admin Trade Name Freq PRN Reason Stop Dose Admin Acetaminophen 650 mg 07/16/24 19:23 Acetaminophen 325 Mg Tablet PO 08/15/24 19:22 Q6H PRN Fever >101.5 Acetaminophen 650 mg 07/16/24 19:23 Acetaminophen 325 Mg Tablet PO 08/15/24 19:22 Q6H PRN PAIN SCALE 1-3 (mild Albuterol/Ipratropium 3 ml 07/17/24 01:00 07/18/24 06:51 Albuterol/Ipratropium (Duoneb) Rt Lasha[place] 3 Ml Nebu INH 08/16/24 00:59 3 ml Q6HRRT FOREIGN Administration Cyclobenzaprine HCl 5 mg 07/18/24 09:03 Cyclobenzaprine 5 Mg Tablet PO 08/15/24 20:26 Q8HR PRN MUSCLE SPASMS Gabapentin 600 mg 07/17/24 22:45 07/18/24 05:23 Gabapentin 300 Mg Capsule PO 08/16/24 22:44 600 mg TID FOREIGN Administration Guaifenesin/Dextromethorphan 1 each 07/16/24 19:35 Guaifenesin/Dm Tablet PO 08/15/24 19:44 Q8H PRN Cough Heparin Sodium (Porcine) 5,000 unit 07/16/24 19:30 07/18/24 08:57 Heparin Sod Inj 5000 Unit/Ml Vial SC 07/30/24 19:29 5,000 unit Q12HR FOREIGN Administration Hydromorphone HCl 1 mg 07/17/24 17:58 07/18/24 04:09 Hydromorphone Inj 2 Mg/Ml Vial IVP 07/22/24 14:16 1 mg Q4HR PRN Administration PAIN SCALE 4-10(Mod-Sev Cefepime HCl 2 gm/ Sodium 50 mls @ 100 mls/hr 07/17/24 13:00 07/18/24 08:55 Chloride IV 07/24/24 12:59 100 mls/hr Q12HR FOREIGN Administration Vancomycin/Sodium Chloride 100 mls @ 120 mls/hr 07/18/24 10:00 Vancomycin/Ns 500 Mg Ivpb IV 07/18/24 10:49 X1 ONE Levothyroxine Sodium 25 mcg 07/17/24 06:00 07/18/24 05:23 Levothyroxine Sodium 25 Mcg Tablet PO 08/16/24 05:59 25 mcg ACBR FOREIGN Administration Ondansetron HCl 4 mg 07/16/24 19:23 Ondansetron Inj 2 Mg/Ml Inj 2 Ml IV 08/15/24 19:22 Q6HR PRN NAUSEA OR VOMITING Protocol Pantoprazole Sodium 40 mg 07/17/24 14:30 07/18/24 08:56 Pantoprazole Inj 40 Mg Vial IV 08/16/24 14:29 40 mg QDAY FOREIGN Administration Pharmacy Consult 1 each 07/17/24 09:00 Vancomycin Pharmacy To Dose 1 Each Each IV 08/16/24 08:59 QDAY PRN PROTOCOL Pharmacy Consult 1 each 07/17/24 13:00 Pharmacy Renal Dose Adjustment 1 Ea XX 08/16/24 12:59 PRN PRN CONSULT Sevelamer Carbonate 2,400 mg 07/17/24 08:00 07/18/24 07:40 Sevelamer Carbonate 800 Mg Tablet PO 08/16/24 07:59 2,400 mg TIDWM FOREIGN Administration Plan Patient is a 33 years old male with past medical history of paraplegia, ESRD on hemodialysis, recurrent nephrolithiasis and UTI who presented to the ED with complaint of increased shortness of breath, cough. Found to have pneumonia on left lungs, loculated left pleural fluid. Being admitted for acute hypoxic hypercapnic respiratory failure. NEURO Stable CVS Tachycardia - resolved - likely sec to pain vs anxiety -EKG sinus tachycardia PULMONOLOGY #Acute hypoxic hypercapnic respiratory failure- improving #Healthcare associated pneumonia #Loculated left pleural effusion -Patient presented with increased shortness of breath and cough, has coarse breath sounds auscultation, -CT chest shows atelectasis and/or pneumonia in the left lung with mild loculated left pleural fluid, mild pneumonia right base, -VBG shows pH of 7.32, pCO2 57; CHEM panel shows carbon dioxide of 28.4 -He was on IV vancomycin and Rocephin, discontinued rocephen and added cefepime -Currently on Bipap -COVID-negative, Flu negative, influnza negatve -sputum culture- pending and Gram stain- GNR,GPC,wbc -MRSA nares- pending -pleural fluid too small for catheter drainage as per radiology -Continue IV antibiotica and Bipap at night. #Obstructive sleep apnea #Obesity hypoventilation syndrome -currently on Bipap hs , he will need out patient sleep studies and Cpap at home INFECTIOUS #Sepsis- resolving -Patient meets 2/4 SIRS criteria with leukocytosis and tachycardia -Bolus fluid not given, patient is on hemodialysis, chest imaging concerning for vascular congestion -Blood - negative 24 hr - urine cultures pending -Continue cefepime and vancomycin Covid- negative flu- negative RSV- negative RENAL #ESRD on hemodialysis #Neurogenic bladder -Patient goes hemodialysis on Mondays and Fridays -Underwent hemodialysis on admission , unable to complete his session -Renally dose medications -brody's catheter in place -Dr Haines on board #hyperphospatemia - resolved -Continue home sevelamer -Nephrology consult ENDO #Hypothyroidism TSH level 1.38 on April 2024 We will continue with levothyroxine 25 daily Heme #Normocytic anemia Likely secondary to ESRD Hemoglobin stable currently, we will monitor closely GI On protonix MSK #Chronic back pain - will do diludid prn for pain -avoid morphine Diet: Renal diet DVT prophylaxis: Heparin subcutaneous GI : protonix Code: Full code Disposition: downgraded to telemetry for management of acute hypoxic hypercapnic respiratory failure secondary to pneumonia, sepsis secondary to pneumonia Case discussed with my attending Dr Shamika Masters,[id number]
[2024-07-18] MEDS: VANCOMYCIN/NS 500 MG IVPB 100 ML 120 MG IV (09:46)
--- NOTE | 2024-07-18 10:36 | PD.RESPRO ---
Documentation for date of: 07/18/24 Subjective Subjective Interval history: Received ICU downgrade in the morning. Patient seen today in the ICU fine awake, alert, oriented x 3. Patient is lying comfortably in bed however complaining of 9 out of 10 pain requesting [place] plus Dilaudid. No significant overnight events reported. On examination right-sided wheezing and bilateral rhonchi appreciated on auscultation. Patient will continue with IV antibiotics at this time as well as BiPAP at night Exam Vital Signs Temp Pulse Resp BP Pulse Ox O2 Del Method O2 Flow Rate 97.3 F 99 20 124/62 99 Nasal Cannula 3 07/18/24 08:01 07/18/24 10:14 07/18/24 10:14 07/18/24 10:00 07/18/24 10:14 07/18/24 08:01 07/18/24 09:00 FiO2 30 07/18/24 06:52 Narrative Exam Physical Exam GENERAL: NAD, AAOx3, paraplegia, obese HEENT: Moist mucosa. Eyes open, symmetrical, & clear CARDIO: Heart RRR, no obvious murmurs PULM: No noted coughing/dyspnea CTA B/L, no R/W/R GI: Abdomen soft, nondistended, no pain on palpation. BSx4 SKIN/MSK/EXT: No wounds/rashes/edema/amputations, lower extremity deformities, no pain on palpation. Pedal pulses present B/L NEURO: AAOx3, no focal neuro deficits, able to move all 4 extremities Objective Labs 07/18/24 04:26 07/18/24 04:26 Labs: Laboratory Results - last 24 hr 07/18/24 07/18/24 00:47 04:26 WBC 10.2 RBC 3.58 L Hgb 11.1 L D Hct 36.6 L D MCV 102 H MCH 31.0 MCHC 30.3 L RDW Std Deviation 53.0 H Plt Count 129 L Neut % (Auto) 84 H Lymph % (Auto) 6 L [place] % (Auto) 8 Eos % (Auto) 1 Baso % (Auto) 0 Neut # (Auto) 8.5 H Lymph # (Auto) 0.6 L [place] # (Auto) 0.8 Eos # (Auto) 0.1 Baso # (Auto) 0.0 Immature Gran # (Auto) 0.05 H Absolute Nucleated RBC 0.00 Immature Gran % 1 H Nucleated RBC % 0 Sodium 132 L 134 L Potassium 4.5 D 4.7 Chloride 99 101 Carbon Dioxide 26.9 26.4 Anion Gap 6 L 7 BUN 31 H 36 H Creatinine 4.4 H* D 4.4 H* Estim Creat Clear Calc 32.4 L 32.4 L eGFR 17 L 17 L BUN/Creatinine Ratio 7 L 8 L Glucose 123 H 125 H Calculated Osmolality 272 L 277 Calcium 8.9 8.3 Corrected Calcium 9.1 8.8 Phosphorus 4.2 4.3 Magnesium 1.8 Total Bilirubin < 0.2 L 0.2 L AST < 8 < 8 ALT < 7 L < 7 L Alkaline Phosphatase 117 H 113 Total Protein 6.6 5.9 Albumin 3.7 3.4 L Globulin 2.9 2.5 Albumin/Globulin Ratio 1.3 1.4 Random Vancomycin 14.9 ABG Interpretation ABG results: 07/16/24 15:55 VBG pH 7.32 L VBG pCO2 57 H VBG pO2 50 VBG Base Excess 2 Quality Measures Quality Measures none Assessment & Plan Assessment Current Active Medications: Generic Name Dose Route Start Last Admin Trade Name Freq PRN Reason Stop Dose Admin Acetaminophen 650 mg 07/16/24 19:23 Acetaminophen 325 Mg Tablet PO 08/15/24 19:22 Q6H PRN Fever >101.5 Acetaminophen 650 mg 07/16/24 19:23 Acetaminophen 325 Mg Tablet PO 08/15/24 19:22 Q6H PRN PAIN SCALE 1-3 (mild Albuterol/Ipratropium 3 ml 07/17/24 01:00 07/18/24 06:51 Albuterol/Ipratropium (Duoneb) Rt [place] 3 Ml Nebu INH 08/16/24 00:59 3 ml Q6HRRT FOREIGN Administration Cyclobenzaprine HCl 5 mg 07/18/24 09:03 Cyclobenzaprine 5 Mg Tablet PO 08/15/24 20:26 Q8HR PRN MUSCLE SPASMS Gabapentin 600 mg 07/17/24 22:45 07/18/24 05:23 Gabapentin 300 Mg Capsule PO 08/16/24 22:44 600 mg TID FOREIGN Administration Guaifenesin/Dextromethorphan 1 each 07/16/24 19:35 Guaifenesin/Dm Tablet PO 08/15/24 19:44 Q8H PRN Cough Heparin Sodium (Porcine) 5,000 unit 07/16/24 19:30 07/18/24 08:57 Heparin Sod Inj 5000 Unit/Ml Vial SC 07/30/24 19:29 5,000 unit Q12HR FOREIGN Administration Hydromorphone HCl 1 mg 07/17/24 17:58 07/18/24 09:45 Hydromorphone Inj 2 Mg/Ml Vial IVP 07/22/24 14:16 1 mg Q4HR PRN Administration PAIN SCALE 4-10(Mod-Sev Cefepime HCl 2 gm/ Sodium 50 mls @ 100 mls/hr 07/17/24 13:00 07/18/24 08:55 Chloride IV 07/24/24 12:59 100 mls/hr Q12HR FOREIGN Administration Vancomycin/Sodium Chloride 100 mls @ 120 mls/hr 07/18/24 10:00 07/18/24 09:46 Vancomycin/Ns 500 Mg Ivpb IV 07/18/24 10:49 120 mls/hr X1 ONE Administration Levothyroxine Sodium 25 mcg 07/17/24 06:00 07/18/24 05:23 Levothyroxine Sodium 25 Mcg Tablet PO 08/16/24 05:59 25 mcg ACBR FOREIGN Administration Ondansetron HCl 4 mg 07/16/24 19:23 Ondansetron Inj 2 Mg/Ml Inj 2 Ml IV 08/15/24 19:22 Q6HR PRN NAUSEA OR VOMITING Protocol Pantoprazole Sodium 40 mg 07/17/24 14:30 07/18/24 08:56 Pantoprazole Inj 40 Mg Vial IV 08/16/24 14:29 40 mg QDAY FOREIGN Administration Pharmacy Consult 1 each 07/17/24 09:00 Vancomycin Pharmacy To Dose 1 Each Each IV 08/16/24 08:59 QDAY PRN PROTOCOL Pharmacy Consult 1 each 07/17/24 13:00 Pharmacy Renal Dose Adjustment 1 Ea XX 08/16/24 12:59 PRN PRN CONSULT Sevelamer Carbonate 2,400 mg 07/17/24 08:00 07/18/24 07:40 Sevelamer Carbonate 800 Mg Tablet PO 08/16/24 07:59 2,400 mg TIDWM FOREIGN Administration Plan 33 years old male with past medical history of paraplegia, ESRD on hemodialysis, recurrent nephrolithiasis and UTI who presented to the ED with complaint of increased shortness of breath, cough. Found to have pneumonia on left lungs, loculated left pleural fluid. Being admitted for acute hypoxic hypercapnic respiratory failure. #Acute hypoxic hypercapnic respiratory failure- improving # Sepsis secondary to Healthcare associated pneumonia #Loculated left pleural effusion Patient presented to the hospital with increased shortness of breath CT of the chest shows pneumonia of the left lung with mild loculated left pleural effusion and mild pneumonia on the right base VBG shows pH of 7.32, pCO2 57; CHEM panel shows carbon dioxide of 28.4 He was on IV vancomycin and Rocephin, discontinued rocephen and added cefepime Patient meets 2/4 SIRS criteria with leukocytosis and tachycardia Bolus fluid not given, patient is on hemodialysis, chest imaging concerning for vascular congestion COVID-negative, Flu negative, influnza negative Sputum culture negative -MRSA nares- pending -pleural fluid too small for drainage -Continue IV cefepime and vancomycin - Bipap at night. #Obstructive sleep apnea #Obesity hypoventilation syndrome -currently on Bipap hs , he will need out patient sleep studies and Cpap at home #ESRD on hemodialysis #Neurogenic bladder #Hyperphosphatemia-resolved Patient goes hemodialysis on Mondays and Fridays Underwent hemodialysis on admission , unable to complete his session -Continue sevelamer -Renally dose medications -brody's catheter in place -Nephrology consulted Dr. Haines, appreciate recommendations #Hypothyroidism TSH level 1.38 on April 2024 -Continue with levothyroxine 25 daily #Normocytic anemia Likely secondary to ESRD Hemoglobin stable currently, we will monitor closely #Chronic back pain -Dilaudid as needed for pain -avoid morphine Case discussed with my attending Dr. Linwood Bunn MD PGY-1 Diet: Renal diet DVT prophylaxis: Heparin subcutaneous GI : protonix Code: Full code Disposition: downgraded to telemetry for management of acute hypoxic hypercapnic respiratory failure secondary to pneumonia, sepsis secondary to pneumonia Attending Provider Attestation/Addendum Patient with pneumonia started on cefepime and vancomycin. Patient was downgraded from the ICU today he is off BiPAP. I discussed with and supervised the resident physician who took care of this patient. I agree with the assessment and plan as above.
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
--- NOTE | 2024-07-18 19:44 | PC.NURSE ---
Educated patient on pain medication. Patient stated if he could have both [place] and Dilaudid together to which the nurse responded that that would not be possible as it can affect his breathing, blood pressure, and heart rate.
--- NOTE | 2024-07-18 19:45 | PC.NURSE ---
MD. Dr. Vieira was also notified regarding patient's pain and mentioned to nurse that he will come to the unit to assess the patient. When nurse assesed patient, patient stated that he has back pain and it goes all over his body.
[2024-07-19] VITALS (30 sets, daily range): BP systolic 104–142; BP diastolic 55–83; PULSE 73–109; RESP 12–22; TEMP 36.1–36.7; O2SAT 92–100
[2024-07-19] MEDS: ALBUTEROL/IPRATROPIUM (Duoneb) RT SOL 3 ML NEBU INH ×2 (00:46→13:12)
[2024-07-19 04:41] LABS: Basophils % (Auto) 1 % (0-2.5); Eosinophils # (Auto) 0.2 Thou/mm3 (0.0-0.5); Eosinophils % (Auto) 2 % (0-10); Hematocrit 36.8 % (41.0-53.0); Immature Granulocytes % (Auto) 0 % (0-0); Immature Granulocytes Auto 0.03 Thou/mm3 (0.00-0.00); Lymphocytes # (Auto) 0.7 Thou/mm3 (1.0-4.8); Lymphocytes % (Auto) 9 % (10-50); Mean Corpuscular HGB Conc 29.9 g/dl (31.0-37.0); Mean Corpuscular Hemoglobin 30.7 pg (25.0-35.0); Mean Corpuscular Volume 103 fL (80-100); Monocytes # (Auto) 0.7 Thou/mm3 (0.0-0.8); Monocytes % (Auto) 9 % (0-12); Neutrophils # (Auto) 6.2 Thou/mm3 (1.8-7.7); Neutrophils % (Auto) 79 % (37-80); Nucleated Red Blood Cell % 0 /100 WBC (0); Platelet Count 126 Thou/mm3 (140-440); RDW Standard Deviation 53.8 fL (35.1-43.9); Red Blood Count 3.58 Miln/mm3 (4.50-5.90); White Blood Count 7.8 Thou/mm3 (3.8-10.6)
[2024-07-19 05:14] LABS: Alanine Aminotransferase < 7 U/L (10-49); Albumin, Serum 3.6 gm/dL (3.5-5.0); Albumin/Globulin Ratio 1.2 (1.2-2.2); Alkaline Phosphatase 109 U/L (46-116); Anion Gap 7 (7-16); Bilirubin,Total 0.2 mg/dL (0.3-1.2); Blood Urea Nitrogen 42 mg/dL (9-23); Calcium (Corrected) 9.3 mg/dL (8.5-10.1); Carbon Dioxide 24.5 mMol/L (20.0-31.0); Chloride 100 mMol/L (98-107); Globulin 2.9 gm/dL (2.3-3.5); Glucose 112 mg/dL (74-106); Magnesium 1.9 mg/dL (1.6-2.6); Osmolality,Calculated 274 (275-295); Potassium 5.1 mMol/L (3.4-5.1); Sodium 131 mMol/L (136-145); Total Protein 6.5 gm/dL (5.7-8.2); Vancomycin,Random 19.3 mcg/mL
[2024-07-19 05:15] LABS: Aspartate Amino Transferase < 8 U/L (0-34); BUN/Creatinine Ratio 8 Ratio (12-20); Estimated Creatinine Clearance 27.5 mL/min (>60); eGFR 15 See Note
[2024-07-19] MEDS: GABAPENTIN 300 MG CAPSULE 600 MG PO ×2 (05:33→13:38)
[2024-07-19] MEDS: LEVOTHYROXINE SODIUM 25 MCG TABLET PO (05:33)
[2024-07-19] MEDS: HYDROmorphone INJ 2 MG/ML VIAL 1 MG IVP ×2 (07:18→12:26)
--- NOTE | 2024-07-19 08:29 | PD.RESPROC ---
Procedures Procedure Date / Time 07/19/24 7305
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
--- NOTE | 2024-07-19 08:46 | PC.NURSE ---
Dr. Haines at bed side, increased uf to 1.0 L.
--- NOTE | 2024-07-19 11:23 | ESDS_ITS ---
<Statement entered by Naomi Mascorro MD - 07/19/24 16:29> I discussed with and supervised the business analyst intern physician who took care of this patient. I personally saw and examined the patient and discussed the assessment and plan with the entire medicine team, including my attending Dr. Muhammad, I agree with most of the assessment and plan as documented below Naomi Mascorro M.D. PGY-2 Planned Discharge Date 07/19/24 DS: Providers Provider Date of admission: 07/16/24 19:23 Primary care physician: Bryce Bunn MD Admitting Provider: Laura Rivera MD Attending Provider on Admission: Laura Rivera MD Consults: 07/16/24 19:49 Consult to Nephrology Routine Comment: ESRD Consulting Provider: Kareem Haines 07/16/24 23:58 Referral Registered Dietitian Urgent Comment: WOUND Referral Wound Care Urgent Comment: Attending Provider on DC: Franco Muhammad MD Discharging Provider: Lit Bunn MD Anticipated date of discharge: 07/19/24 DS: Diagnosis Problem List Completed Was Problem List Reviewed/Reconciled?: Yes Hospital Course Hospital Course Hospital course: 33 years old male with past medical history of paraplegia, ESRD on hemodialysis, recurrent nephrolithiasis and UTI who presented to the ED with complaint of increased shortness of breath, cough. Found to have pneumonia on left lungs, loculated left pleural fluid. Being admitted for acute hypoxic hypercapnic respiratory failure. During hospital stay patient was managed with IV antibiotics namely cefepime and vancomycin. Patient was found with pleural fluid was evaluated found amount of fluid was too minimal for any kind of intervention at this time. Patient also has history of obstructive sleep apnea patient was recommended to continue BiPAP at night. Patient has history of end- stage renal disease on hemodialysis for which nephrology was consulted and dialysis was continued as scheduled. Patient has history of hypothyroidism for which his levothyroxine was continued to schedule. Patient has history of chronic back pain for which pain medication was provided as needed. Patient has normocytic anemia most likely related to end-stage renal disease however hemoglobin levels were monitored and remained adequate during hospitalization. At this time patient is medically stable for discharge. Patient to follow-up with Dr. Bryce Bunn on , 07/22/2024 at 12:45 PM on [address] [place] [address]. follow up as outpatient with possible repeat imaging of lymphadenopathy. Continue antibiotics cefdinir 300 mg once daily on Friday, friday and friday after dialysis for treatment of pneumonia. Continue antibiotics doxycycline 100 mg twice daily for 5 days. Patient should continue the rest of his medications as prescribed. Should symptoms recur or worsen patient is instructed to return to the ED Problem list: #Acute hypoxic hypercapnic respiratory failure- improving # Sepsis secondary to Healthcare associated pneumonia #Loculated left pleural effusion #Obstructive sleep apnea #Obesity hypoventilation syndrome #ESRD on hemodialysis #Neurogenic bladder #Hyperphosphatemia-resolved #Hypothyroidism #Normocytic anemia #Chronic back pain Case discussed with my senior Dr. Mascorro PGY-[address] Jb Bunn MD PGY-1 Status at Discharge Functional status at discharge: bed bound Overall status at discharge: patient is back to baseline Time Spent with Patient Time attestation: Total time spent providing and/or coordinating discharge services: Time spent: Greater than 30 minutes Quality: Stroke Pt Provided Written Stroke Discharge Instructions: No Exam Vital Signs Temp Pulse Resp BP Pulse Ox O2 Del Method O2 Flow Rate 97.8 F 90 20 120/67 92 L Nasal Cannula 3 07/19/24 11:16 07/19/24 11:16 07/19/24 11:16 07/19/24 11:16 07/19/24 11:16 07/19/24 07:25 07/19/24 11:16 FiO2 30 07/19/24 00:45 Narrative Exam Physical Exam GENERAL: NAD, AAOx3 HEENT: Moist mucosa. Eyes open, symmetrical, & clear CARDIO: Heart RRR, no obvious murmurs PULM: No noted coughing/dyspnea CTA B/L, no R/W/R GI: Abdomen soft, nondistended, no pain on palpation. BSx4 SKIN/MSK/EXT: Paraplegic, no pain on palpation. Pedal pulses present B/L NEURO: AAOx3, no focal neuro deficits, able to move all 4 extremities Discharge Plan Plan Patient Disposition: HOME (Self Care) Care Plan Goals: Patient to follow-up with Dr. Bryce Bunn on , 07/22/2024 at 12:45 PM on [address] [place] [address] follow up as outpatient with possible repeat imaging of lymphadenopathy Continue antibiotics cefdinir 300 mg once daily on Friday, friday and friday after dialysis for treatment of pneumonia Continue antibiotics doxycycline 100 mg twice daily for 5 days Patient should continue the rest of his medications as prescribed Should symptoms recur or worsen patient is instructed to return to the ED Prescriptions/Referrals Prescriptions/Med Rec: New doxycycline hyclate 100 mg capsule 100 mg PO BID 5 Days Qty: 10 0RF cefdinir 300 mg capsule 300 mg PO QDAY Qty: 3 0RF Rx Instructions: take 300mg after dialysis Friday, friday, friday. Continued sevelamer carbonate 800 mg Tablet 2,400 mg PO TIDWMEAL magnesium oxide 400 mg magnesium Capsule 400 mg PO BID levothyroxine 25 mcg Tablet 25 mcg PO QDAY cholestyramine (with sugar) 4 gram Powder In Packet 1 ea PO BID gabapentin 600 mg Tablet 600 mg PO TID omeprazole 40 mg capsule,delayed release(DR/EC) 40 mg PO QDAY Patient Comments: TAKE ONE CAPSULE BY MOUTH EVERY DAY midodrine 10 mg tablet 10 mg PO TID PRN (Reason: Hypotension) cinacalcet 30 mg tablet 30 mg PO QDAY Patient Comments: TAKE ONE TABLET BY MOUTH EVERY DAY hydrocodone-acetaminophen 10-325 mg tablet 1 tab PO Q6H PRN (Reason: Pain (Scale Score 7-10)) sodium bicarbonate 650 mg tablet 650 mg PO BID Patient Comments: TAKE ONE TABLET BY MOUTH TWICE DAILY cyclobenzaprine 5 mg tablet 5 mg PO Q8HR PRN (Reason: Muscle Spasm) Patient Comments: TAKE ONE TABLET BY MOUTH EVERY 8 HOURS NEEDED FOR muscle SPASMS amlodipine 5 mg Tablet 5 mg PO QDAY 30 Days Qty: 30 1RF Mucinex DM 30-600 mg Tablet Extended Release 12 Hr 1 tab PO BID PRN (Reason: Cough) Qty: 10 0RF furosemide 40 mg tablet 40 mg PO QDAY Qty: 2 0RF Lokelma 10 gram powder in packet 10 g PO balsam zohreh-castor oil [Venelex] Ointment 1 applic top BID Qty: 60 0RF lidocaine 5 % adhesive patch,medicated 1 patch topical QDAY Qty: 30 0RF Rx Instructions: leave on most painful area for up to 12 hrs Referrals: Bryce Bunn MD [Primary Care Provider] - Patient/Caregiver Discharge Instructions Education Materials: ED Pneumonia (Adult) Print Language: Singaporean Stand Alone Forms: Mellissa Award Info., Patient Portal Info Letter Discharge Order Discharge Orders: Discharge (Routine); Ordered 07/19/24 Ordered By: Naomi Mascorro Quality Discharge Quality Measures VTE prophylaxis MD Attestestation MD Attestation I have examined the patient, reviewed labs and imaging findings, discussed the case with the resident(s), and reviewed entered orders. I agree with the plan of care as outlined in this note. Dr. Jb MD
[2024-07-19] MEDS: PANTOPRAZOLE INJ 40 MG VIAL IV (12:23)
[2024-07-19] MEDS: HEPARIN SOD INJ 5000 UNIT/ML VIAL SC (12:24)
[2024-07-19] MEDS: SEVELAMER CARBONATE 800 MG TABLET 2400 MG PO (12:25)
[2024-07-19] MEDS: CEFEPIME INJ 2 GM in SODIUM CHLORIDE 0.9% (Popper) 50 ML IV (12:25)
[2024-07-19] MEDS: VANCOMYCIN/NS 500 MG IVPB 100 ML 120 MG IV (14:22)
[2024-07-19] MEDS: HYDROcodone/APAP 5/325 TABLET 1 TAB PO (15:00)
--- NOTE | 2024-07-19 15:23 | PC.SS ---
Follow up note: Patient has d/c orders for today. SS confirmed with patient's mother and she is agreeable with d/c today. Requested gurney transport home. SS went through [facility] and set up gurney transport for 5p.m. with a reference# [id number]
[2024-07-19] MEDS: LIDOCAINE 5% 1 PATCH TOP (16:52)
== END 2024-07-19 18:10 | disposition home or self-care (01) | DRG 871 ==
LOC: SERX 18:32 → SERHOLD 19:47 → S2NX 22:14 → S2SX 07-17 11:46 → S2NX 07-18 12:00
PROVIDERS: Student in an Organized Health Care Education/Training Program; Admitting Provider Student in an Organized Health Care Education/Training Program; Emergency Provider Emergency Medicine; PCP Family Medicine; Visit Provider Student in an Organized Health Care Education/Training Program
DX: A41.9 Sepsis, unspecified organism (principal); G93.41 Metabolic encephalopathy; J18.9 Pneumonia, unspecified organism; J96.02 Acute respiratory failure with hypercapnia; N18.6 End stage renal disease; J96.01 Acute respiratory failure with hypoxia; G82.20 Paraplegia, unspecified; I12.0 Hypertensive chronic kidney disease with stage 5 chronic kidney disease or end stage renal disease; J90 Pleural effusion, not elsewhere classified; E66.2 Morbid (severe) obesity with alveolar hypoventilation; M54.50 Low back pain, unspecified; G89.29 Other chronic pain; E03.9 Hypothyroidism, unspecified; D63.1 Anemia in chronic kidney disease; Y95 Nosocomial condition; N31.9 Neuromuscular dysfunction of bladder, unspecified; E83.39 Other disorders of phosphorus metabolism; E87.5 Hyperkalemia; Z87.442 Personal history of urinary calculi; Z87.440 Personal history of urinary (tract) infections; Z68.31 Body mass index [BMI] 31.0-31.9, adult; Z87.891 Personal history of nicotine dependence; Z88.0 Allergy status to penicillin; Z99.2 Dependence on renal dialysis; Z88.8 Allergy status to other drugs, medicaments and biological substances; Z56.0 Unemployment, unspecified; Z93.2 Ileostomy status
CPT/HCPCS: 36415; 71045; 71260; 80053; 80061; 80202; 80307; 80320; 81001; 82140; 82803; 83605; 83735; 83880; 84100; 84145; 84484; 85025; 85610; 86850; 86900; 86901; 87040; 87077; 87081; 87086; 87186; 87205; 87400; 87502; 87811; 93005; 94640; 94660; 94664; 94667; 96365; 96366; 96367; 96372; 96375; 99285; A4649; A9270; J0692; J0696; J1643; J2185; J2270; J2405; J2470; J3370; J3371; J3490; J7050; Q9967; Z7610; G0480

== ENCOUNTER 2024-09-10 02:38 | Inpatient (IN) | payer MEDICARE, MEDICAID, SELFPAY ==
[2024-09-10] VITALS (49 sets, daily range): BP systolic 66–229; BP diastolic 42–168; PULSE 78–130; RESP 0–33; TEMP 35.9–37.2; O2SAT 87–100; BMI 28.2
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
--- NOTE | 2024-09-10 03:45 | XR_ITS ---
Examination: AP chest single view Technique one AP portable sitting chest single view Exam date and time: September 10, 2024 0402 hrs. Comparison July 08, 2024 Indications: Shortness of breath today. Findings: Abnormal right mediastinum, prominent, please see the CT chest report July 16, 2024 Mild prominence of ventricle Opacity left base consistent with pneumonia Moderate vascular congestion Impression: Left base pneumonia Abnormal right mediastinal contour, please see the CT chest report July 16, 2024 indicating right mediastinal abnormal lymphadenopathy
--- NOTE | 2024-09-10 03:45 | EKG_ITS ---
[facility] Test Date: 2024-09-10 Pat Name: KENNEDY LEDEZMA Department: Room: - Gender: Male Wood Inspector: : [id number] Requested By: George Alberts Order Number: [id number] Reading MD: George Alberts Measurements Intervals [place] Rate: 112 P: 48 [place]: 187 QRS: -22 QRSD: 93 T: 61 QT: 306 QTc: 419 Interpretive Statements SINUS TACHYCARDIA BORDERLINE LEFT AXIS DEVIATION [QRS AXIS < -20] ABNORMAL RHYTHM ECG Compared to ECG 07/16/2024 15:01:09 No significant changes /store/S0/[id number].pdf
[2024-09-10] MEDS: ONDANSETRON INJ 2 MG/ML INJ 2 ML 4 MG IV ×2 (03:57→09:25)
[2024-09-10] MEDS: HYDROmorphone INJ 2 MG/ML VIAL 0.5 MG IVP ×3 (03:58→05:58)
[2024-09-10 04:50] LABS: Lactate (Lactic Acid) 1.8 mMol/L (0.4-2.0)
[2024-09-10 05:04] LABS: Basophils # (Auto) 0.1 Thou/mm3 (0.0-0.2); Basophils % (Auto) 1 % (0-2.5); Eosinophils # (Auto) 0.3 Thou/mm3 (0.0-0.5); Eosinophils % (Auto) 4 % (0-10); Hemoglobin 12.3 g/dL (13.5-16.0); Immature Granulocytes % (Auto) 0 % (0-0); Immature Granulocytes Auto 0.02 Thou/mm3 (0.00-0.00); Lymphocytes # (Auto) 0.9 Thou/mm3 (1.0-4.8); Lymphocytes % (Auto) 14 % (10-50); Mean Corpuscular Hemoglobin 30.4 pg (25.0-35.0); Mean Corpuscular Volume 102 fL (80-100); Monocytes # (Auto) 0.6 Thou/mm3 (0.0-0.8); Monocytes % (Auto) 9 % (0-12); Neutrophils # (Auto) 4.7 Thou/mm3 (1.8-7.7); Neutrophils % (Auto) 72 % (37-80); Nucleated Red Blood Cell % 0 /100 WBC (0); Platelet Count 140 Thou/mm3 (140-440); RDW Standard Deviation 55.9 fL (35.1-43.9); Red Blood Count 4.04 Miln/mm3 (4.50-5.90); White Blood Count 6.5 Thou/mm3 (3.8-10.6)
[2024-09-10 05:12] LABS: Partial Thromboplastin Time 29.5 Seconds (22.0-36.0); Prothrombin Time 11.1 Seconds (9.0-12.2)
[2024-09-10 05:28] LABS: Alanine Aminotransferase < 7 U/L (10-49); Albumin/Globulin Ratio 1.2 (1.2-2.2); Alkaline Phosphatase 153 U/L (46-116); Anion Gap 6 (7-16); Aspartate Amino Transferase < 10 U/L (0-34); BUN/Creatinine Ratio 8 Ratio (12-20); Bilirubin,Total < 0.2 mg/dL (0.3-1.2); Blood Urea Nitrogen 38 mg/dL (9-23); Calcium 8.9 mg/dL (8.3-10.6); Calcium (Corrected) 8.9 mg/dL (8.5-10.1); Carbon Dioxide 22.5 mMol/L (20.0-31.0); Chloride 107 mMol/L (98-107); Creatinine (Component) 4.9 mg/dL (0.6-1.3); Estimated Creatinine Clearance 26.6 mL/min (>60); Globulin 3.3 gm/dL (2.3-3.5); Glucose 97 mg/dL (74-106); Osmolality,Calculated 279 (275-295); Potassium 5.4 mMol/L (3.4-5.1); Procalcitonin 0.24 ng/ml (0.0-0.49); Sodium 135 mMol/L (136-145); Total Protein 7.3 gm/dL (5.7-8.2); Troponin I < 0.020 ng/mL (0.0-0.045); eGFR 15 See Note
--- NOTE | 2024-09-10 07:22 | PD.EDADDENDU ---
Emergency Room Addendum Addendum Narrative: 0600: Care assumed from Dr. Moya, the previous shift emergency physician. Past medical, surgical, social and family history reviewed. Vitals and home medications reviewed. I will assume the care of the patient at this time pending labs and final disposition. Please refer to the emergency department record for history and examination from initial visit.?The following addendum documentation note is intended to reflect any pending information, findings, or radiology results not included in the patient?s initial chart. 0855: I was called into the room by RN and residents who were assessing the patient. Report the patient is not responsive to painful stimuli. RN stated this morning the patient was able to answer questions appropriately. States the patient was given three doses of 0.5mg Dilaudid Patient saturating 86-89% on 5L nasal cannula. Patient was placed on a nonrebreather at 15L and ordered an ABG. 0915: Nasal trumpet in place. Patient saturating 82% on 15L nonrebreather. ABG pending at this time. Narcan ordered. 0936: Patient has received two doses of 0.4mg IV Narcan where he wakes momentarily. I updated the residents working with Dr. Palumbo and state they are waiting on the ABG results. 0947: Notified by RN that ABG pH 6.90 and CO2 111. Will start patient on bipap and reassess. 1048: I updated resident Dr. Parmar working with Dr. Palumbo. Made aware the patient is now wide awake and answering questions. Plan to admit to floors. 1345: Residents from Dr. Palumbo team are here and state they will consult with ICU to decide floors vs icu admission. 1428: Patient has been accepted by Dr. Palumbo team for admission.
[2024-09-10 08:11] LABS: Collection Type, Urine Catheter
[2024-09-10 08:40] LABS: Bacteria,Urine 1+; Bilirubin,Urine Negative (Negative); Blood,Urine 3+ (Negative); Glucose, Urine Negative (Negative); Ketones,Urine Negative (Negative); Leukocyte Esterase,Urine Positive (Negative); Nitrite,Urine Negative (Negative); Protein,Urine 2+ (Neg - Trace); RBC,Urine 155 /hpf (0-3); Squamous Epithelial Cell,Urine 14 /hpf (0-5); Urobilinogen,Urine Negative mg/dL (0.0-1.0); WBC,Urine 2476 /hpf (0-5)
[2024-09-10 08:52] LABS: Clarity,Urine Cloudy (Clear/Hazy); Color,Urine Lt Yellow (Lt Yel-Yel)
--- NOTE | 2024-09-10 09:04 | PC.NURSE ---
Admitting team came down to assess patient. Patient now obtunded. Unresponsive to pain. MD bedside. For morning round patient was GCS 15 aaox4 and opened eyes to verbal stimulation
[2024-09-10] MEDS: NALOXONE INJ 0.4 MG/ML VIAL IV (09:20)
[2024-09-10 09:29] LABS: Base Excess -13 (-3-3); HCO3 22 mEq/L (20-26); Inspired O2, VO2 Liters 15 L/min; O2 Saturation 94 % (91-98); PO2 83 mmHg (83-108)
[2024-09-10] MEDS: NALOXONE INJ 1 MG/ML SYRINGE 2 ML 0.4 MG IV (09:35)
[2024-09-10 09:41] LABS: Allen Test Not Performed; Puncture Site Right Femoral
[2024-09-10 09:42] LABS: PCO2 111 mmHg (32.0-48.0)
[2024-09-10 11:15] LABS: Base Excess -12 (-3-3); HCO3 21 mEq/L (20-26); Inspired Oxygen, FIO2 50 %; O2 Saturation 67 % (91-98)
[2024-09-10 11:17] LABS: PO2 40 mmHg (83-108); pH, Arterial 7.03 (7.35-7.45)
[2024-09-10 11:18] LABS: Allen Test Not Performed; PCO2 78 mmHg (32.0-48.0); Puncture Site Left Radial
--- NOTE | 2024-09-10 11:29 | PD.RESCONSUL ---
HPI Data of Consult Consult date: 09/10/24 Primary Care Provider: Bryce Bunn MD Consult Narrative Reason for consult: ESRD, need for hemodialysis History of present illness: Mr. Matson is a 33-year-old male with past medical history of paraplegia, hypertension, ESRD on hemodialysis Friday and Friday(under Dr. Jeff at [facility]), recurrent UTIs, status post tracheostomy and ileostomy who presented in the reproduction production manager hours to the ED due to shortness of breath and generalized weakness. Prior to seeing patient at bedside the consultation was placed for the need for hemodialysis as patient missed his last session on Friday due to not feeling well. Patient was given Dilaudid 1.5 mg throughout the night and was found to be obtunded by the primary team with minimal response to sternal rub. The ER physician was informed patient was given Narcan and placed on BiPAP after which patient woke up. His ABG showed a pH of 6.9 and a CO2 of 111 likely secondary from the hypoxemic hypercapnia and hypoventilation due to medication and improved to 7.03 and PCO2 decreased to 78 after Narcan. When I saw the patient at bedside he was arguing with the nurses demanding pain medications as he has had severe low back pain. Patient was a poor historian and was adamant about the pain medication before answering any questions I just managed to get out of him that he missed his dialysis session as he was not feeling well with generalized weakness nausea vomiting as well as right arm pain and swelling of his AV fistula on the right arm. Patient's sodium was 135, potassium 5.4, BUN is 38 creatinine 4.9 and a glucose of 97. Patient also has obesity hypoventilation syndrome. His UA was positive for UTI and cultures were obtained. Nephrology team was consulted for the need of dialysis. Dialysis was ordered and will continue to follow patient closely in collaboration with the primary team. cc:: cc: Review of Systems Review of Systems Systems Reviewed: All systems reviewed, normal except as documented Exam Vital Signs Temp Pulse Resp BP Pulse Ox O2 Del Method O2 Flow Rate 97.2 F 97 20 123/99 H 97 BiPAP 5 09/10/24 11:26 09/10/24 11:09/10/24 11:09/10/24 11:09/10/24 11:09/10/24 11:09/10/24 08:00 FiO2 50 09/10/24 11:26 Narrative Exam Constitutional: Obese male with nasal tube on the right nasal orifice skin pain Eyes: PERRL , no conjunctival injection , symmetrical lids. ENMT: Moist Mucous Membranes, No trauma or injury. CVS: RRR, S1 and S2 present, no murmurs, rubs or gallops . RESP: CTAB, there is bilateral rhonchi and rales with shortness of breath. GI: Normal BS, Nontender/Nondistended. MSK: Full range of motion, No trauma or deformities or masses. AV fistula on the right arm with right arm appearing larger than the left without erythema or discharge Skin: Warm to touch, Dry. No rashes or lesions. No hematomas Neuro: Deferred Psych: (AAO) x3 . Agitated and requesting pain meds Results Labs 09/10/24 04:20 09/10/24 04:25 Labs: Short CBC 09/10/24 Range/Units 04:20 WBC 6.5 (3.8-10.6) Thou/mm3 Hgb 12.3 L (13.5-16.0) g/dL Hct 41.0 (41.0-53.0) % Plt Count 140 (140-440) Thou/mm3 BMP 09/10/24 04:25 Sodium 135 L Potassium 5.4 H Chloride 107 Carbon Dioxide 22.5 BUN 38 H Creatinine 4.9 H* Glucose 97 Calcium 8.9 Cardiac Enzymes 09/10/24 Range/Units 04:25 Troponin I < 0.020 (0.0-0.045) ng/mL Liver Function 09/10/24 Range/Units 04:25 Total Bilirubin < 0.2 L (0.3-1.2) mg/dL AST < 10 (0-34) U/L ALT < 7 L (10-49) U/L Alkaline Phosphatase 153 H (46-116) U/L Albumin 4.0 (3.5-5.0) gm/dL Urine 09/10/24 Range/Units 07:40 Urine Color Lt Yellow (Lt Yel-Yel) Urine Clarity Cloudy A (Clear/Hazy) Urine pH 7.0 (5.0-7.0) Ur Specific [place] 1.010 (1.001-1.035) Urine Protein 2+ A (Neg - Trace) Urine Glucose (UA) Negative (Negative) ABG Interpretation ABG results: 09/10/24 09/10/24 09:22 11:05 ABG pH 6.90 L* 7.03 L* D ABG pCO2 111 H* 78 H* D ABG pO2 83 40 L* D ABG HCO3 22 21 ABG O2 Saturation 94 67 L ABG Base Excess -13 L -12 L Quality Measures Quality Measures none Medications Home Medications and Allergies Home Medications ?Medication ?Instructions ?Recorded ?Confirmed ?Type gabapentin 600 mg tablet 600 mg PO TID 03/29/19 04/11/24 History cholestyramine (with sugar) 4 gram 1 ea PO BID 08/24/20 06/05/24 History powder for susp in a packet levothyroxine 25 mcg tablet 25 mcg PO QDAY 08/24/20 04/11/24 History magnesium oxide 400 mg PO BID 08/24/20 04/14/24 History sevelamer carbonate 800 mg tablet 2,400 mg PO TIDWMEAL 08/24/20 06/05/24 History cinacalcet 30 mg tablet 30 mg PO QDAY 07/10/22 04/14/24 History midodrine 10 mg tablet 10 mg PO TID PRN Hypotension 07/10/22 06/05/24 History omeprazole 40 mg capsule,delayed 40 mg PO QDAY 07/10/22 04/14/24 History release hydrocodone 10 mg-acetaminophen 1 tab PO Q6H PRN Pain (Scale Score 12/26/22 04/11/24 History 325 mg tablet 7-10) sodium bicarbonate 650 mg tablet 650 mg PO BID 12/26/22 04/14/24 History cyclobenzaprine 5 mg tablet 5 mg PO Q8HR PRN Muscle Spasm 01/19/24 06/05/24 History sodium zirconium cyclosilicate 10 10 g PO 06/05/24 History gram oral powder packet (Lokelma) Allergies Allergy/AdvReac Type Severity Reaction Status Date / Time piperacillin (From Zosyn) Allergy Severe Anaphylaxis Verified 09/10/24 03:20 tazobactam (From Zosyn) Allergy Severe Anaphylaxis Verified 09/10/24 03:20 LIZY Inhibitors Allergy Verified 09/10/24 03:20 Penicillins Allergy Anaphylaxis Verified 09/10/24 03:20 Visit Medications Epoetin Sandeep (Epoetin Sandeep Inj 1,000 Unit/0.05 Ml Unit) 10,000 unit SC X1 ONE Stop: 09/10/24 12:01 Hydromorphone HCl (Hydromorphone Inj 2 Mg/Ml Vial) 0.5 mg IVP Q30MIN PRN PRN Reason: PAIN Stop: 09/15/24 03:44 Last Admin: 09/10/24 05:58 Dose: 0.5 mg Discontinued Medications Acetaminophen (Acetaminophen 325 Mg Tablet) 650 mg PO X1 ONE Stop: 09/10/24 11:27 Epoetin Sandeep (Epoetin Sandeep-Epbx 3,000 Unit/Ml Vial (Esrd)) 10,000 unit SC X1 ONE Stop: 09/10/24 12:01 Midodrine (Midodrine 5 Mg Tablet) 10 mg PO X1 ONE Stop: 09/10/24 04:26 Last Admin: 09/10/24 06:06 Dose: Not Given Naloxone HCl (Naloxone Inj 0.4 Mg/Ml Vial) 0.4 mg IV X1 ONE Stop: 09/10/24 09:21 Last Admin: 09/10/24 09:20 Dose: 0.4 mg Naloxone HCl (Naloxone Inj 1 Mg/Ml Syringe 2 Ml) 0.4 mg IV X1 ONE Stop: 09/10/24 09:26 Last Admin: 09/10/24 09:35 Dose: 0.4 mg Ondansetron HCl (Ondansetron Inj 2 Mg/Ml Inj 2 Ml) 4 mg IV X1 ONE; Protocol Stop: 09/10/24 03:42 Last Admin: 09/10/24 03:57 Dose: 4 mg Ondansetron HCl (Ondansetron Inj 2 Mg/Ml Inj 2 Ml) 4 mg IV X1 ONE; Protocol Stop: 09/10/24 09:29 Last Admin: 09/10/24 09:25 Dose: 4 mg Assessment & Plan Plan 33-year-old male with past medical history of paraplegia, hypertension, ESRD on hemodialysis Friday and Friday, recurrent UTIs, status post tracheostomy and ileostomy admitted due to acute hypoxic respiratory failure. #ESRD on hemodialysis Friday and Friday Patient presented after missing his hemodialysis appointment on Friday and last 1 being a week ago (last Friday) prior to admission Patient's sodium was 135, potassium 5.4 with a BUN of 38 and a creatinine of 4.9 Plan: ? Patient to receive hemodialysis today ? Follow-up with daily CMP ? Electrolyte replacement protocol #Acute hypoxic hypercapnic respiratory failure #UTI #Obesity hypoventilation syndrome #Paraplegia #Hypertension ?As managed by primary team Thank you for allowing us to be part of patient's care during his time in [facility] I discussed patient's care with attending physician, Dr Yancy Sosa PGY3 Attending Provider Attestation/Addendum Patient seen and examined with resident physician Dr. Sosa. Note reviewed, agree with findings and recommendations. Patient currently seen on dialysis. Tolerating dialysis without any problems. Patient requesting more pain medications despite being very drowsy. Hemodialysis for 3 hours, 2K, ultrafiltration 1-2 L, Epogen 6000, no heparin ordered. Plan of care discussed with the dialysis nurse. Please see dialysis flowsheet for further details. Overall prognosis still remains guarded. Thank you Dr. Guerra for allowing me to participate in the care of Mr. Matson
[2024-09-10] MEDS: ACETAMINOPHEN 325 MG TABLET 650 MG PO (11:32)
[2024-09-10 13:55] LABS: Base Excess -10 (-3-3); HCO3 21 mEq/L (20-26); Inspired Oxygen, FIO2 50 %; O2 Saturation 86 % (91-98); PCO2 64 mmHg (32.0-48.0)
[2024-09-10 14:03] LABS: pH, Arterial 7.11 (7.35-7.45)
[2024-09-10 14:04] LABS: Allen Test Performed/OK; PO2 48 mmHg (83-108); Puncture Site Left Brachial
[2024-09-10] MEDS: ALBUMIN HUMAN 25% IVPB 25 GM/100 ML BTL IV (16:21)
--- NOTE | 2024-09-10 16:21 | PC.NURSE ---
BP LOW, UF OFF WILL AMDIN PRN ALBUMIN, WEILL CONT. TO MONITOR
[2024-09-10] MEDS: ALBUTEROL/IPRATROPIUM (Duoneb) RT SOL 3 ML NEBU INH (16:28)
--- NOTE | 2024-09-10 16:32 | PC.NURSE ---
bp trending up pt denies all s/s of hypotension, uf resumed, will cont. to monitor
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
[2024-09-10] MEDS: ETOMIDATE INJ 2 MG/ML VIAL 10 ML 40 MG IVP (18:26)
[2024-09-10] MEDS: ROCURONIUM INJ 10 MG/ML VIAL 10 ML 100 MG IV (18:28)
--- NOTE | 2024-09-10 18:30 | XR_ITS ---
Examination: AP chest single view Technique one AP portable semiupright chest single view Exam date and time: September 10, 2024 at 1904 hours INDICATIONS: Hypoxic respiratory failure postintubation FINDINGS: Extensive left lung pneumonia Mild prominence left ventricle Endotracheal tube tip 5.6 cm above Lindsey The orogastric tube is in the stomach, the tip is below the level of the film IMPRESSION: Prominent left lung pneumonia Endotracheal tube tip 5.6 cm above Lindsey
--- NOTE | 2024-09-10 18:32 | PC.NURSE ---
report given to ELECTRODE CLEANING MACHINE OPERATOR
--- NOTE | 2024-09-10 18:36 | PC.NURSE ---
tx terminated 30 min early d/t pt's decreased on o2 sat and loc, rapid response called, pt transferred to icu. MD Haines notified.
--- NOTE | 2024-09-10 19:15 | EVENTNT_ITS ---
Documentation for date of: 09/10/24 Event Note Event Note: Rapid response called for patient around 6:30 PM while patient was in dialysis. Patient found to have aspirated on BiPAP, was desatting down to 60s, patient was started on oxy mask, but patient's oxygen saturation did not improve, was eventually started on manual bagging. On-call bite block maker responded to the rapid response as well, decision was made to upgrade the patient to intensive care unit status post aspiration event on BiPAP. Patient's dialysis session terminated 30 minutes early. Patient was intubated in the intensive care unit, patient upgraded to ICU level of care. Case discussed with Attending Dr. Palumbo. Gibran Santana PGY1 Disclaimer: This note was dictated by speech recognition. Minor errors in client solutions director may be present due to voice recognition software.
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
--- NOTE | 2024-09-10 19:28 | PD.INTPROC ---
Procedures Procedure Date / Time 09/10/241927 Procedural Time Out Time out performed: 1927 Procedure Narrative Procedure Narrative: Due to hypopnea and hypoxia and hypercapnia and acute respiratory failure secondary to fentanyl overdose and paraplegia and obesity Patient required to be intubated This happened after responding well to the Narcan before but went hypoxic again during dialysis and aspirated Patient was intubated in the ICU With using glide scope and hypercoiled scope the patient was intubated with size for scope and size 8-1/2 ET tube After doing received intubation using both etomidate and rocuronium Intubation was done successfully No complication Chest x-ray was done and showed good placement of the tube
--- NOTE | 2024-09-10 19:30 | PC.NURSE ---
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 Bipap was taken off and patient was suctioned. Patients oxygen level dropped to the 70% patient was bagged. Patients oxygen level only came up to 81%. MD at bedside ICU hop weigher at bedside patient was transferred to ICU and intubated to protect airway.Patient dialysis line from fistula was pulled out and blood coming out pressure was applied by the dialysis Nurse Ai.
[2024-09-10] MEDS: fentaNYL 2,500 MCG/250 ML BAG 2,500 MCG/250 ML BAG IV (19:35)
[2024-09-10] MEDS: PROPOFOL 1,000 MG IVPB 1,000 MG/100 ML VIAL 2.994 MG IV (19:38)
[2024-09-10 20:02] LABS: Base Excess -5 (-3-3); HCO3 27 mEq/L (20-26); Inspired Oxygen, FIO2 100 %; O2 Saturation 100 % (91-98); PCO2 89 mmHg (32.0-48.0); PO2 251 mmHg (83-108)
[2024-09-10 20:03] LABS: Allen Test Performed/OK; Puncture Site Left Radial
[2024-09-10 20:04] LABS: pH, Arterial 7.09 (7.35-7.45)
[2024-09-10] MEDS: cefTRIAXone/D5w 1gm IV premix 1 GM/50 ML BAG IV (21:00)
[2024-09-10] MEDS: HEPARIN SOD INJ 5000 UNIT/ML VIAL SC (21:01)
--- NOTE | 2024-09-10 22:00 | PC.NURSE ---
per MD Guan to keep OG/PEG tube clamped and not to start LIS.
[2024-09-10 22:07] LABS: Base Excess -6 (-3-3); HCO3 25 mEq/L (20-26); Inspired Oxygen, FIO2 60 %; O2 Saturation 91 % (91-98); PCO2 77 mmHg (32.0-48.0); PO2 61 mmHg (83-108)
[2024-09-10 22:08] LABS: Allen Test Performed/OK; Puncture Site Left Radial; pH, Arterial 7.13 (7.35-7.45)
[2024-09-10] MEDS: Norepinephrine/NS 16mg/250ml 16 MG/250 ML BAG 4.678 MG IV (23:55)
[2024-09-11] VITALS (85 sets, daily range): BP systolic 78–155; BP diastolic 49–87; PULSE 84–132; RESP 0–27; TEMP 35.8–36.8; O2SAT 90–100; BMI 29.3
[2024-09-11] MEDS: PROPOFOL 1,000 MG IVPB 1,000 MG/100 ML VIAL 14.969 MG IV (04:48)
[2024-09-11] MEDS: HEPARIN SOD INJ 5000 UNIT/ML VIAL SC ×3 (05:13→22:04)
[2024-09-11] MEDS: MIDODRINE 5 MG TABLET 10 MG PO ×3 (05:13→14:20)
[2024-09-11] MEDS: LEVOTHYROXINE SODIUM 25 MCG TABLET PO (05:13)
--- NOTE | 2024-09-11 08:07 | XR_ITS ---
Examination: AP chest single view TECHNIQUE: AP portable semiupright chest single view Exam date time: September 11, 2024 1612 hours Comparison September 10, 2024 INDICATIONS: Hypoxic respiratory failure postintubation FINDINGS: The film is rotated RPO Significant left perihilar left basilar pneumonia with blunting of the left lateral costophrenic angle Mild to moderate vascular congestion The patient's orthopedic hardware overlies the endotracheal tube The endotracheal tube is approximately 5 cm from the amparo. The orogastric tube is in the stomach, the tip is below the level of the film IMPRESSION: Significant left lung pneumonia The endotracheal tube is approximately 5 cm above the amparo Mild to moderate vascular congestion The orogastric tube is in the stomach
[2024-09-11] MEDS: PANTOPRAZOLE INJ 40 MG VIAL IVP (08:33)
[2024-09-11] MEDS: cefTRIAXone/D5w 1gm IV premix 1 GM/50 ML BAG IV (08:33)
[2024-09-11 09:11] LABS: Basophils % (Auto) 0 % (0-2.5); Eosinophils % (Auto) 0 % (0-10); Hematocrit 38.1 % (41.0-53.0); Hemoglobin 11.7 g/dL (13.5-16.0); Immature Granulocytes % (Auto) 1 % (0-0); Immature Granulocytes Auto 0.15 Thou/mm3 (0.00-0.00); Lymphocytes # (Auto) 0.3 Thou/mm3 (1.0-4.8); Lymphocytes % (Auto) 2 % (10-50); Mean Corpuscular HGB Conc 30.7 g/dl (31.0-37.0); Mean Corpuscular Hemoglobin 31.3 pg (25.0-35.0); Mean Corpuscular Volume 102 fL (80-100); Monocytes # (Auto) 1.6 Thou/mm3 (0.0-0.8); Monocytes % (Auto) 9 % (0-12); Neutrophils % (Auto) 89 % (37-80); Nucleated Red Blood Cell % 0 /100 WBC (0); Platelet Count 118 Thou/mm3 (140-440); RDW Standard Deviation 56.2 fL (35.1-43.9); Red Blood Count 3.74 Miln/mm3 (4.50-5.90); White Blood Count 18.1 Thou/mm3 (3.8-10.6)
[2024-09-11 09:24] LABS: Alanine Aminotransferase < 7 U/L (10-49); Albumin, Serum 3.6 gm/dL (3.5-5.0); Albumin/Globulin Ratio 1.3 (1.2-2.2); Alkaline Phosphatase 112 U/L (46-116); Anion Gap 7 (7-16); Aspartate Amino Transferase < 8 U/L (0-34); BUN/Creatinine Ratio 7 Ratio (12-20); Bilirubin,Total 0.4 mg/dL (0.3-1.2); Blood Urea Nitrogen 29 mg/dL (9-23); Calcium 9.1 mg/dL (8.3-10.6); Calcium (Corrected) 9.4 mg/dL (8.5-10.1); Carbon Dioxide 25.1 mMol/L (20.0-31.0); Chloride 106 mMol/L (98-107); Creatinine (Component) 4.4 mg/dL (0.6-1.3); Estimated Creatinine Clearance 30.1 mL/min (>60); Globulin 2.7 gm/dL (2.3-3.5); Glucose 74 mg/dL (74-106); Magnesium 1.4 mg/dL (1.6-2.6); Osmolality,Calculated 280 (275-295); Potassium 5.7 mMol/L (3.4-5.1); Sodium 138 mMol/L (136-145); Total Protein 6.3 gm/dL (5.7-8.2); eGFR 17 See Note
--- NOTE | 2024-09-11 09:47 | PD.RESPRO ---
Documentation for date of: 09/11/24 Subjective Subjective Interval history: Mr. Matson is a 33-year-old male with past medical history of paraplegia, hypertension, ESRD on hemodialysis Friday and Friday(under Dr. Jeff at [facility]), recurrent UTIs, status post tracheostomy and ileostomy who presented in the home health specialist hours to the ED due to shortness of breath and generalized weakness. Prior to seeing patient at bedside the consultation was placed for the need for hemodialysis as patient missed his last session on Friday due to not feeling well. Patient was given Dilaudid 1.5 mg throughout the night and was found to be obtunded by the primary team with minimal response to sternal rub. The ER physician was informed patient was given Narcan and placed on BiPAP after which patient woke up. His ABG showed a pH of 6.9 and a CO2 of 111 likely secondary from the hypoxemic hypercapnia and hypoventilation due to medication and improved to 7.03 and PCO2 decreased to 78 after Narcan. When I saw the patient at bedside he was arguing with the nurses demanding pain medications as he has had severe low back pain. Patient was a poor historian and was adamant about the pain medication before answering any questions I just managed to get out of him that he missed his dialysis session as he was not feeling well with generalized weakness nausea vomiting as well as right arm pain and swelling of his AV fistula on the right arm. Patient's sodium was 135, potassium 5.4, BUN is 38 creatinine 4.9 and a glucose of 97. Patient also has obesity hypoventilation syndrome. His UA was positive for UTI and cultures were obtained. Nephrology team was consulted for the need of dialysis. Dialysis was ordered and will continue to follow patient closely in collaboration with the primary team. 09/11/24: Patient seen and examined in the ICU. Overnight patient seemed to have worsening hypoxic respiratory failure with increased work of breathing after which patient needed to be intubated. Patient's potassium was elevated this morning at 5.7 BUN was 29 and creatinine was 4.4. Patient will receive hemodialysis today. Exam Vital Signs Temp Pulse Resp BP Pulse Ox O2 Del Method O2 Flow Rate 96.9 F 96 3 L 130/74 98 Mechanical Ventilation 5 09/11/24 04:00 09/11/24 06:37 09/11/24 06:00 09/11/24 06:37 09/11/24 06:37 09/10/24 20:00 09/10/24 08:00 FiO2 50 09/11/24 06:37 Narrative Exam Constitutional: Obese male that is intubated and sedated. Eyes: PERRL , no conjunctival injection , symmetrical lids. ENMT: Moist Mucous Membranes, No trauma or injury. CVS: RRR, S1 and S2 present, no murmurs, rubs or gallops . RESP: CTAB, there is bilateral rhonchi and rales with shortness of breath. GI: Normal BS, Nontender/Nondistended. MSK: Full range of motion, No trauma or deformities or masses. AV fistula on the right arm with right arm appearing larger than the left without erythema or discharge Skin: Warm to touch, Dry. No rashes or lesions. No hematomas Neuro: Deferred Psych: (AAO) x0 . Patient intubated and sedated and responds only to noxious stimuli Objective Labs 09/12/24 04:49 09/12/24 04:49 Labs: Laboratory Results - last 24 hr 09/10/24 09/10/24 09/10/24 11:05 13:50 19:49 WBC RBC Hgb Hct MCV MCH MCHC RDW Std Deviation Plt Count Neut % (Auto) Lymph % (Auto) [place] % (Auto) Eos % (Auto) Baso % (Auto) Neut # (Auto) Lymph # (Auto) [place] # (Auto) Eos # (Auto) Baso # (Auto) Immature Gran # (Auto) Absolute Nucleated RBC Immature Gran % Nucleated RBC % Puncture Site Left Radial Left Brachial Left Radial ABG pH 7.03 L* D 7.11 L* 7.09 L* ABG pCO2 78 H* D 64 H D 89 H* D ABG pO2 40 L* D 48 L* 251 H D ABG HCO3 21 21 27 H ABG O2 Saturation 67 L 86 L 100 H ABG Base Excess -12 L -10 L -5 L FiO2 50 50 100 Sodium Potassium Chloride Carbon Dioxide Anion Gap BUN Creatinine Estim Creat Clear Calc eGFR BUN/Creatinine Ratio Glucose Calculated Osmolality Calcium Corrected Calcium Phosphorus Magnesium Total Bilirubin AST ALT Alkaline Phosphatase Total Protein Albumin Globulin Albumin/Globulin Ratio 09/10/24 09/11/24 21:58 08:08 WBC 18.1 H D RBC 3.74 L Hgb 11.7 L Hct 38.1 L MCV 102 H MCH 31.3 MCHC 30.7 L RDW Std Deviation 56.2 H Plt Count 118 L Neut % (Auto) 89 H Lymph % (Auto) 2 L [place] % (Auto) 9 Eos % (Auto) 0 Baso % (Auto) 0 Neut # (Auto) 16.0 H Lymph # (Auto) 0.3 L [place] # (Auto) 1.6 H Eos # (Auto) 0.0 Baso # (Auto) 0.0 Immature Gran # (Auto) 0.15 H Absolute Nucleated RBC 0.00 Immature Gran % 1 H Nucleated RBC % 0 Puncture Site Left Radial ABG pH 7.13 L* ABG pCO2 77 H* D ABG pO2 61 L D ABG HCO3 25 ABG O2 Saturation 91 ABG Base Excess -6 L FiO2 60 Sodium 138 Potassium 5.7 H Chloride 106 Carbon Dioxide 25.1 Anion Gap 7 BUN 29 H Creatinine 4.4 H* D Estim Creat Clear Calc 30.1 L eGFR 17 L BUN/Creatinine Ratio 7 L Glucose 74 Calculated Osmolality 280 Calcium 9.1 Corrected Calcium 9.4 Phosphorus 4.0 Magnesium 1.4 L Total Bilirubin 0.4 AST < 8 ALT < 7 L Alkaline Phosphatase 112 D Total Protein 6.3 Albumin 3.6 Globulin 2.7 Albumin/Globulin Ratio 1.3 ABG Interpretation ABG results: 09/10/24 09/10/24 09/10/24 09:22 11:05 13:50 ABG pH 6.90 L* 7.03 L* D 7.11 L* ABG pCO2 111 H* 78 H* D 64 H D ABG pO2 83 40 L* D 48 L* ABG HCO3 22 21 21 ABG O2 Saturation 94 67 L 86 L ABG Base Excess -13 L -12 L -10 L 09/10/24 09/10/24 19:49 21:58 ABG pH 7.09 L* 7.13 L* ABG pCO2 89 H* D 77 H* D ABG pO2 251 H D 61 L D ABG HCO3 27 H 25 ABG O2 Saturation 100 H 91 ABG Base Excess -5 L -6 L Quality Measures Quality Measures none Assessment & Plan Assessment Current Active Medications: Generic Name Dose Route Start Last Admin Trade Name Freq PRN Reason Stop Dose Admin Albuterol/Ipratropium 3 ml 09/10/24 14:28 09/10/24 16:28 Albuterol/Ipratropium (Duoneb) Rt Lashaun 3 Ml Nebu INH 10/10/24 14:59 3 ml Q4HRRT PRN Administration wheezing Epoetin Sandeep 10,000 unit 09/11/24 12:00 Epoetin Sandeep Inj 1,000 Unit/0.05 Ml Unit SC 09/11/24 12:01 X1 ONE Heparin Sodium (Porcine) 5,000 unit 09/10/24 22:00 09/11/24 05:13 Heparin Sod Inj 5000 Unit/Ml Vial SC 09/24/24 21:59 5,000 unit Q8HR FOREIGN Administration Albumin Human 25 gm in 100 mls @ 100 mls/min 09/10/24 16:17 09/10/24 16:21 Albuminar-25 Ivpb IV 100 mls/min PRN PRN Administration DIALYSIS Fentanyl Citrate 2,500 mcg in 250 mls @ 2.5 mls/hr 09/10/24 18:30 09/11/24 06:00 Sublimaze Inj 2,500 Mcg/250 Ml Bag IV 09/15/24 18:29 125 mcg/hr .Q24H PRN 12.5 mls/hr PER PROTOCOL Titration Protocol 25 MCG/HR Propofol 1,000 mg in 100 mls @ 2.994 mls/hr 09/10/24 18:31 09/11/24 06:00 Diprivan Ivpb IV 10/10/24 18:30 30 mcg/kg/min .Q24H PRN 17.962 mls/hr PER PROTOCOL Titration Protocol 5 MCG/KG/MIN Norepinephrine Bitartrate 16 mg in 250 mls @ 4.678 mls/hr 09/10/24 23:45 09/11/24 02:00 Levophed In Ns 16mg/250ml IV 10/10/24 23:44 0 mcg/kg/min .Q24H PRN 0 mls/hr PER protocol Titration Protocol 0.05 MCG/KG/MIN Meropenem 500 mg/ Sodium 50 mls @ 100 mls/hr 09/11/24 09:00 Chloride IV 09/18/24 09:03 QDAY FOREIGN Vancomycin HCl 1,500 mg/ 500 mls @ 198 mls/hr 09/11/24 09:15 Sodium Chloride IV 09/11/24 11:46 X1 ONE Levothyroxine Sodium 25 mcg 09/11/24 06:00 09/11/24 05:13 Levothyroxine Sodium 25 Mcg Tablet PO 10/11/24 05:59 25 mcg ACBR FOREIGN Administration Midodrine 10 mg 09/10/24 23:45 09/11/24 05:13 Midodrine 5 Mg Tablet PO 10/10/24 23:44 10 mg TID FOREIGN Administration Ondansetron HCl 4 mg 09/10/24 14:34 Ondansetron Inj 2 Mg/Ml Inj 2 Ml IV 10/10/24 14:44 Q8H PRN nausea vomiting Protocol Pantoprazole Sodium 40 mg 09/11/24 09:00 09/11/24 08:33 Pantoprazole Inj 40 Mg Vial IVP 10/11/24 08:59 40 mg QDAY FOREIGN Administration Pharmacy Consult 1 each 09/11/24 09:00 Vancomycin Pharmacy To Dose 1 Each Each IV 10/11/24 08:59 QDAY FOREIGN Plan 33-year-old male with past medical history of paraplegia, hypertension, ESRD on hemodialysis Friday and Friday, recurrent UTIs, status post tracheostomy and ileostomy admitted due to acute hypoxic respiratory failure. #ESRD on hemodialysis Friday and Friday Patient presented after missing his hemodialysis appointment on Friday and last 1 being a week ago (last Friday) prior to admission Patient's sodium was 135, potassium 5.4 with a BUN of 38 and a creatinine of 4.9 Plan: ? Patient to receive hemodialysis today ? Follow-up with daily CMP ? Electrolyte replacement protocol #Acute hypoxic hypercapnic respiratory failure #UTI #Obesity hypoventilation syndrome #Paraplegia #Hypertension ?As managed by primary team Thank you for allowing us to be part of patient's care during his time in [facility] I discussed patient's care with attending physician, Dr Yancy Sosa PGY3 Attending Provider Attestation/Addendum Patient seen and examined with resident physician Dr. Sosa. Note reviewed, agree with findings and recommendations. Patient went into acute respiratory failure needing intubation yesterday at the last 30 minutes of dialysis. Decided to proceed with extra session today. Patient currently seen on dialysis. Hemodialysis for 3 hours, 2K, ultrafiltration 1L, Epogen 6000, no heparin ordered. Plan of care discussed with the dialysis nurse. Please see dialysis flowsheet for further details. Plan of care discussed with ICU team.
[2024-09-11] MEDS: MEROPENEM INJ 500 MG in SODIUM CHLORIDE 0.9% (Popper) 50 ML 100 MG IV (10:05)
[2024-09-11] MEDS: PROPOFOL 1,000 MG IVPB 1,000 MG/100 ML VIAL 20.956 MG IV (10:13)
[2024-09-11] MEDS: Vancomycin Inj 1,500 MG in SODIUM CHLORIDE 0.9% 500 ML 500 ML 198 MG IV (10:31)
--- NOTE | 2024-09-11 10:45 | PC.DIETICIAN ---
Nutrition Prescription: 1. Nepro 1.8 at 20 ml/hr via OG tube by pump. Advance 10 ml every 8 hrs to goal rate of 45 ml/hr x 22 hrs. If no IV fluids, water flushes of 25ml/hr (or per MD). Hold TF for one hour before and after levothyroxine administration. Goal rate will be adjusted if propofol is discontinued or infusion rate considerably decreased. 2. Prostat SF BID via OG-Tube. Thank you! :)
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
[2024-09-11] MEDS: PROPOFOL 1,000 MG IVPB 1,000 MG/100 ML VIAL 26.943 MG IV ×2 (14:14→17:23)
--- NOTE | 2024-09-11 14:26 | PC.NURSE ---
BP TRENDING DOWN WILL ADMIN PRN ALBUMIN PER MD ORDERS AND CONT. TO MNONITOR
[2024-09-11] MEDS: ALBUMIN HUMAN 25% IVPB 25 GM/100 ML BTL IV (14:27)
[2024-09-11] MEDS: fentaNYL 2,500 MCG/250 ML BAG 2,500 MCG/250 ML BAG 22.5 MCG IV (15:50)
[2024-09-11] MEDS: EPOETIN ALFA INJ 1,000 UNIT/0.05 ML UNIT 10000 UNIT SC (15:55)
[2024-09-11 18:04] LABS: Base Excess, Venous 1 (-3-3); O2 Saturation, Venous 78 % (96-97); PCO2, Venous 41 mmHg (36-56); PO2, Venous 34 mmHg (15-58); pH, Venous 7.41 (7.33-7.66)
[2024-09-11] MEDS: PROPOFOL 1,000 MG IVPB 1,000 MG/100 ML VIAL 23.95 MG IV (21:02)
[2024-09-12] VITALS (36 sets, daily range): BP systolic 96–175; BP diastolic 40–100; PULSE 70–113; RESP 15–31; TEMP 35.9–36.4; O2SAT 76–100; BMI 29.5
[2024-09-12] MEDS: PROPOFOL 1,000 MG IVPB 1,000 MG/100 ML VIAL 26.943 MG IV (01:00)
[2024-09-12] MEDS: fentaNYL 2,500 MCG/250 ML BAG 2,500 MCG/250 ML BAG 22.5 MCG IV (03:41)
[2024-09-12] MEDS: PROPOFOL 1,000 MG IVPB 1,000 MG/100 ML VIAL 29.937 MG IV (04:47)
[2024-09-12 05:24] LABS: Base Excess, Venous 2 (-3-3); O2 Saturation, Venous 84 % (96-97); PCO2, Venous 36 mmHg (36-56); PO2, Venous 39 mmHg (15-58); pH, Venous 7.46 (7.33-7.66)
[2024-09-12] MEDS: HEPARIN SOD INJ 5000 UNIT/ML VIAL SC (05:27)
[2024-09-12] MEDS: LEVOTHYROXINE SODIUM 25 MCG TABLET PO (05:27)
[2024-09-12] MEDS: MIDODRINE 5 MG TABLET 10 MG PO ×2 (05:34→14:48)
[2024-09-12 05:38] LABS: Basophils # (Auto) 0.1 Thou/mm3 (0.0-0.2); Basophils % (Auto) 1 % (0-2.5); Eosinophils # (Auto) 0.2 Thou/mm3 (0.0-0.5); Eosinophils % (Auto) 1 % (0-10); Hemoglobin 10.9 g/dL (13.5-16.0); Immature Granulocytes % (Auto) 1 % (0-0); Immature Granulocytes Auto 0.14 Thou/mm3 (0.00-0.00); Lymphocytes # (Auto) 0.6 Thou/mm3 (1.0-4.8); Lymphocytes % (Auto) 5 % (10-50); Mean Corpuscular HGB Conc 32.1 g/dl (31.0-37.0); Mean Corpuscular Hemoglobin 31.4 pg (25.0-35.0); Mean Corpuscular Volume 98 fL (80-100); Monocytes # (Auto) 0.9 Thou/mm3 (0.0-0.8); Monocytes % (Auto) 7 % (0-12); Neutrophils # (Auto) 11.6 Thou/mm3 (1.8-7.7); Neutrophils % (Auto) 86 % (37-80); Nucleated Red Blood Cell % 0 /100 WBC (0); Platelet Count 122 Thou/mm3 (140-440); RDW Standard Deviation 54.5 fL (35.1-43.9); Red Blood Count 3.47 Miln/mm3 (4.50-5.90); White Blood Count 13.6 Thou/mm3 (3.8-10.6)
--- NOTE | 2024-09-12 06:00 | XR_ITS ---
Examination: AP chest single view Technique 1V portable semiupright chest single view Time: September 12, 2024 0509 hours Comparison September 11, 2024 INDICATIONS: Hypoxic respiratory failure this week post intubation FINDINGS: Prominent pneumonia left base Normal heart size Endotracheal tube tip 5.7 cm above Lindsey Orogastric tube in the stomach, the tip is below the level of the film Mild pneumonia right mid lung IMPRESSION: Again noted prominent pneumonia left base Endotracheal tube tip 5.7 cm above Lindsey
[2024-09-12 06:08] LABS: Alanine Aminotransferase < 7 U/L (10-49); Albumin, Serum 3.5 gm/dL (3.5-5.0); Albumin/Globulin Ratio 1.6 (1.2-2.2); Alkaline Phosphatase 106 U/L (46-116); Anion Gap 10 (7-16); Aspartate Amino Transferase 14 U/L (0-34); BUN/Creatinine Ratio 5 Ratio (12-20); Bilirubin,Total 0.5 mg/dL (0.3-1.2); Blood Urea Nitrogen 20 mg/dL (9-23); Calcium 9.1 mg/dL (8.3-10.6); Calcium (Corrected) 9.5 mg/dL (8.5-10.1); Carbon Dioxide 25.2 mMol/L (20.0-31.0); Chloride 103 mMol/L (98-107); Creatinine (Component) 3.7 mg/dL (0.6-1.3); Estimated Creatinine Clearance 35.8 mL/min (>60); Globulin 2.2 gm/dL (2.3-3.5); Glucose 91 mg/dL (74-106); Magnesium 1.6 mg/dL (1.6-2.6); Osmolality,Calculated 278 (275-295); Phosphorous 2.5 mg/dL (2.4-5.1); Potassium 4.2 mMol/L (3.4-5.1); Sodium 138 mMol/L (136-145); Total Protein 5.7 gm/dL (5.7-8.2); eGFR 21 See Note
[2024-09-12 07:06] LABS: Vancomycin,Random 15.6 mcg/mL
[2024-09-12] MEDS: PROPOFOL 1,000 MG IVPB 1,000 MG/100 ML VIAL 23.95 MG IV (08:00)
--- NOTE | 2024-09-12 09:17 | ESPR_ITS ---
Documentation for date of: 09/12/24 Subjective Subjective Interval history: Mr. Matson is a 33-year-old male with past medical history of paraplegia, hypertension, ESRD on hemodialysis Friday and Friday(under Dr. 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 Prior to seeing patient at bedside the consultation was placed for the need for hemodialysis as patient missed his last session on Friday due to not feeling well. Patient was given Dilaudid 1.5 mg throughout the night and was found to be obtunded by the primary team with minimal response to sternal rub. The ER physician was informed patient was given Narcan and placed on BiPAP after which patient woke up. His ABG showed a pH of 6.9 and a CO2 of 111 likely secondary from the hypoxemic hypercapnia and hypoventilation due to medication and improved to 7.03 and PCO2 decreased to 78 after Narcan. When I saw the patient at bedside he was arguing with the nurses demanding pain medications as he has had severe low back pain. Patient was a poor historian and was adamant about the pain medication before answering any questions I just managed to get out of him that he missed his dialysis session as he was not feeling well with generalized weakness nausea vomiting as well as right arm pain and swelling of his AV fistula on the right arm. Patient's sodium was 135, potassium 5.4, BUN is 38 creatinine 4.9 and a glucose of 97. Patient also has obesity hypoventilation syndrome. His UA was positive for UTI and cultures were obtained. Nephrology team was consulted for the need of dialysis. Dialysis was ordered and will continue to follow patient closely in collaboration with the primary team. 09/11/24: Patient seen and examined in the ICU. Overnight patient seemed to have worsening hypoxic respiratory failure with increased work of breathing after which patient needed to be intubated. Patient's potassium was elevated this morning at 5.7 BUN was 29 and creatinine was 4.4. Patient will receive hemodialysis today. 09/12/2024 currently seen in ICU. On vent. Review of Systems Review of Systems Narrative Review of Systems: On ventilator Exam Vital Signs Temp Pulse Resp BP Pulse Ox O2 Del Method O2 Flow Rate 36.3 C 74 24 H 125/55 L 99 Mechanical Ventilation 5 09/12/24 04:00 09/12/24 06:49 09/11/24 15:40 09/12/24 06:49 09/12/24 06:49 09/11/24 19:00 09/10/24 08:00 FiO2 40 09/12/24 04:00 Narrative Exam Constitutional: Obese male that is intubated and sedated. CVS: RRR, S1 and S2 present, no murmurs, rubs or gallops . RESP: CTAB, there is bilateral rhonchi and rales with shortness of breath. GI: Normal BS, Nontender/Nondistended. MSK: Full range of motion, No trauma or deformities or masses. AV fistula on the right arm with right arm appearing larger than the left without erythema or discharge Skin: Warm to touch, Dry. No rashes or lesions. No hematomas Neuro: Deferred Psych: (AAO) x0 . Patient intubated and sedated and responds only to noxious stimuli Objective Labs 09/13/24 04:47 09/13/24 04:47 Labs: Laboratory Results - last 24 hr 09/11/24 09/11/24 09/12/24 08:08 17:57 04:49 WBC 13.6 H RBC 3.47 L Hgb 10.9 L Hct 34.0 L MCV 98 MCH 31.4 MCHC 32.1 RDW Std Deviation 54.5 H Plt Count 122 L Neut % (Auto) 86 H Lymph % (Auto) 5 L [place] % (Auto) 7 Eos % (Auto) 1 Baso % (Auto) 1 Neut # (Auto) 11.6 H Lymph # (Auto) 0.6 L [place] # (Auto) 0.9 H Eos # (Auto) 0.2 Baso # (Auto) 0.1 Immature Gran # (Auto) 0.14 H Absolute Nucleated RBC 0.00 Immature Gran % 1 H Nucleated RBC % 0 VBG pH 7.41 7.46 VBG pCO2 41 36 VBG pO2 34 39 VBG O2 Sat (Lalo) 78 L 84 L VBG Base Excess 1 2 Sodium 138 138 Potassium 5.7 H 4.2 D Chloride 106 103 Carbon Dioxide 25.1 25.2 Anion Gap 7 10 BUN 29 H 20 Creatinine 4.4 H* D 3.7 H D Estim Creat Clear Calc 30.1 L 35.8 L eGFR 17 L 21 L BUN/Creatinine Ratio 7 L 5 L Glucose 74 91 Calculated Osmolality 280 278 Calcium 9.1 9.1 Corrected Calcium 9.4 9.5 Phosphorus 4.0 2.5 Magnesium 1.4 L 1.6 Total Bilirubin 0.4 0.5 AST < 8 14 ALT < 7 L < 7 L Alkaline Phosphatase 112 D 106 Total Protein 6.3 5.7 Albumin 3.6 3.5 Globulin 2.7 2.2 L Albumin/Globulin Ratio 1.3 1.6 Random Vancomycin 15.6 ABG Interpretation ABG results: 09/10/24 09/10/24 09/10/24 09:22 11:05 13:50 ABG pH 6.90 L* 7.03 L* D 7.11 L* ABG pCO2 111 H* 78 H* D 64 H D ABG pO2 83 40 L* D 48 L* ABG HCO3 22 21 21 ABG O2 Saturation 94 67 L 86 L ABG Base Excess -13 L -12 L -10 L VBG pH VBG pCO2 VBG pO2 VBG Base Excess 09/10/24 09/10/24 09/11/24 19:49 21:58 17:57 ABG pH 7.09 L* 7.13 L* ABG pCO2 89 H* D 77 H* D ABG pO2 251 H D 61 L D ABG HCO3 27 H 25 ABG O2 Saturation 100 H 91 ABG Base Excess -5 L -6 L VBG pH 7.41 VBG pCO2 41 VBG pO2 34 VBG Base Excess 1 09/12/24 04:49 ABG pH ABG pCO2 ABG pO2 ABG HCO3 ABG O2 Saturation ABG Base Excess VBG pH 7.46 VBG pCO2 36 VBG pO2 39 VBG Base Excess 2 Assessment & Plan Additional Assessment & Plan Additional Plan: 33-year-old male with past medical history of paraplegia, hypertension, ESRD on hemodialysis Friday and Friday, recurrent UTIs, status post tracheostomy and ileostomy admitted due to acute hypoxic respiratory failure. #ESRD on hemodialysis Friday and Friday Patient presented after missing his hemodialysis appointment on Friday and last 1 being a week ago (last Friday) prior to admission Patient's sodium was 135, potassium 5.4 with a BUN of 38 and a creatinine of 4.9 Plan: ? Did receive hemodialysis yesterday Next dialysis scheduled for tomorrow ? Follow-up with daily CMP ? Electrolyte replacement protocol #Acute hypoxic hypercapnic respiratory failure #UTI #Obesity hypoventilation syndrome #Paraplegia #Hypertension ?As managed by ICU team
[2024-09-12] MEDS: MEROPENEM INJ 500 MG in SODIUM CHLORIDE 0.9% (Popper) 50 ML 100 MG IV (10:39)
[2024-09-12] MEDS: PANTOPRAZOLE INJ 40 MG VIAL IVP (10:39)
[2024-09-12] MEDS: VANCOMYCIN/NS 500 MG IVPB 100 ML 120 MG IV (10:44)
[2024-09-12] MEDS: HYDROcodone/APAP 10/325 TAB PO ×3 (11:06→23:40)
[2024-09-12] MEDS: DEXMEDETOMIDINE 400 MCG IVPB 400 MCG/100 ML BAG 5.225 MCG IV (12:18)
[2024-09-12] MEDS: GABAPENTIN 300 MG CAPSULE 600 MG PO ×2 (14:48→21:11)
[2024-09-12] MEDS: CYCLObenzaPRINE 5 MG TABLET PO ×2 (14:49→21:11)
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
[2024-09-12] MEDS: DEXMEDETOMIDINE 400 MCG IVPB 400 MCG/100 ML BAG 20.9 MCG IV (16:14)
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
[2024-09-12] MEDS: DEXMEDETOMIDINE 400 MCG IVPB 400 MCG/100 ML BAG 31.35 MCG IV (19:00)
[2024-09-12] MEDS: DEXMEDETOMIDINE 400 MCG IVPB 400 MCG/100 ML BAG 26.125 MCG IV (22:30)
[2024-09-13] VITALS (73 sets, daily range): BP systolic 88–176; BP diastolic 58–108; PULSE 70–156; RESP 18–39; TEMP 36.1–36.6; O2SAT 80–99; BMI 29.9
[2024-09-13] MEDS: DEXMEDETOMIDINE 400 MCG IVPB 400 MCG/100 ML BAG 31.35 MCG IV (02:06)
[2024-09-13 04:57] LABS: Base Excess, Venous -2 (-3-3); O2 Saturation, Venous 84 % (96-97); PCO2, Venous 52 mmHg (36-56); PO2, Venous 45 mmHg (15-58)
[2024-09-13] MEDS: DEXMEDETOMIDINE 400 MCG IVPB 400 MCG/100 ML BAG 36.575 MCG IV (05:03)
[2024-09-13] MEDS: GABAPENTIN 300 MG CAPSULE 600 MG PO ×3 (05:08→21:01)
[2024-09-13] MEDS: CYCLObenzaPRINE 5 MG TABLET PO ×3 (05:08→21:01)
[2024-09-13] MEDS: LEVOTHYROXINE SODIUM 25 MCG TABLET PO (05:08)
[2024-09-13] MEDS: MIDODRINE 5 MG TABLET 10 MG PO ×2 (05:09→21:01)
[2024-09-13] MEDS: HYDROcodone/APAP 10/325 TAB PO ×4 (05:09→23:52)
[2024-09-13 05:30] LABS: Basophils # (Auto) 0.1 Thou/mm3 (0.0-0.2); Eosinophils # (Auto) 0.3 Thou/mm3 (0.0-0.5); Eosinophils % (Auto) 2 % (0-10); Nucleated Red Blood Cell % 0 /100 WBC (0)
[2024-09-13 05:32] LABS: Basophils % (Auto) 1 % (0-2.5); Hematocrit 38.5 % (41.0-53.0); Hemoglobin 11.9 g/dL (13.5-16.0); Immature Granulocytes % (Auto) 1 % (0-0); Immature Granulocytes Auto 0.18 Thou/mm3 (0.00-0.00); Lymphocytes # (Auto) 0.5 Thou/mm3 (1.0-4.8); Lymphocytes % (Auto) 3 % (10-50); Mean Corpuscular HGB Conc 30.9 g/dl (31.0-37.0); Mean Corpuscular Hemoglobin 31.2 pg (25.0-35.0); Mean Corpuscular Volume 101 fL (80-100); Monocytes % (Auto) 6 % (0-12); Neutrophils # (Auto) 13.9 Thou/mm3 (1.8-7.7); Neutrophils % (Auto) 87 % (37-80); Platelet Count 141 Thou/mm3 (140-440); RDW Standard Deviation 56.6 fL (35.1-43.9); Red Blood Count 3.82 Miln/mm3 (4.50-5.90); White Blood Count 15.9 Thou/mm3 (3.8-10.6)
--- NOTE | 2024-09-13 06:00 | XR_ITS ---
Examination: AP chest single view TECHNIQUE: AP portable semiupright chest single view Exam date time: September 13, 2024 0528 hours Comparison September 12, 2024 INDICATIONS: Hypoxic respiratory failure postintubation, pneumonia on earlier chest films is week. FINDINGS: Significant left perihilar left basilar pneumonia Normal heart size Moderate vascular congestion Endotracheal tube tip 8 cm above Lindsey The orogastric tube is in the stomach, the tip is below the level of the film IMPRESSION: Significant left lung pneumonia Endotracheal tube is 8 cm above Lindsey
[2024-09-13 06:10] LABS: Alanine Aminotransferase 11 U/L (10-49); Albumin, Serum 3.4 gm/dL (3.5-5.0); Albumin/Globulin Ratio 1.4 (1.2-2.2); Anion Gap 11 (7-16); Aspartate Amino Transferase 25 U/L (0-34); Bilirubin,Total 0.5 mg/dL (0.3-1.2); Blood Urea Nitrogen 31 mg/dL (9-23); Calcium (Corrected) 9.5 mg/dL (8.5-10.1); Chloride 103 mMol/L (98-107); Globulin 2.5 gm/dL (2.3-3.5); Glucose 137 mg/dL (74-106); Magnesium 1.7 mg/dL (1.6-2.6); Osmolality,Calculated 284 (275-295); Phosphorous 4.2 mg/dL (2.4-5.1); Potassium 4.5 mMol/L (3.4-5.1); Sodium 138 mMol/L (136-145); Total Protein 5.9 gm/dL (5.7-8.2); Vancomycin,Random 16.2 mcg/mL
[2024-09-13 06:11] LABS: Alkaline Phosphatase 152 U/L (46-116); Creatinine (Component) 4.5 mg/dL (0.6-1.3); Estimated Creatinine Clearance 29.5 mL/min (>60); eGFR 17 See Note
[2024-09-13 06:12] LABS: BUN/Creatinine Ratio 7 Ratio (12-20)
--- NOTE | 2024-09-13 08:19 | PC.IP ---
At 0745 notified Ángel Cook RN to place pt. in Contact Precautions for CRE. At 0815 confirmed with Sonia Wang General Passenger Agent the urine specimen would be sent to [facility] to r/o DRIVER SUPERVISOR.
[2024-09-13] MEDS: PANTOPRAZOLE INJ 40 MG VIAL IVP (08:38)
[2024-09-13] MEDS: MEROPENEM INJ 500 MG in SODIUM CHLORIDE 0.9% (Popper) 50 ML 100 MG IV (08:38)
--- NOTE | 2024-09-13 08:47 | PD.RESPRO ---
Documentation for date of: 09/13/24 Subjective Subjective Interval history: Mr. Matson is a 33-year-old male with past medical history of paraplegia, hypertension, ESRD on hemodialysis Friday and Friday(under Dr. 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 Prior to seeing patient at bedside the consultation was placed for the need for hemodialysis as patient missed his last session on Friday due to not feeling well. Patient was given Dilaudid 1.5 mg throughout the night and was found to be obtunded by the primary team with minimal response to sternal rub. The ER physician was informed patient was given Narcan and placed on BiPAP after which patient woke up. His ABG showed a pH of 6.9 and a CO2 of 111 likely secondary from the hypoxemic hypercapnia and hypoventilation due to medication and improved to 7.03 and PCO2 decreased to 78 after Narcan. When I saw the patient at bedside he was arguing with the nurses demanding pain medications as he has had severe low back pain. Patient was a poor historian and was adamant about the pain medication before answering any questions I just managed to get out of him that he missed his dialysis session as he was not feeling well with generalized weakness nausea vomiting as well as right arm pain and swelling of his AV fistula on the right arm. Patient's sodium was 135, potassium 5.4, BUN is 38 creatinine 4.9 and a glucose of 97. Patient also has obesity hypoventilation syndrome. His UA was positive for UTI and cultures were obtained. Nephrology team was consulted for the need of dialysis. Dialysis was ordered and will continue to follow patient closely in collaboration with the primary team. 09/11/24: Patient seen and examined in the ICU. Overnight patient seemed to have worsening hypoxic respiratory failure with increased work of breathing after which patient needed to be intubated. Patient's potassium was elevated this morning at 5.7 BUN was 29 and creatinine was 4.4. Patient will receive hemodialysis today. 09/13/2024: Patient seen and examined in ICU today. There were no major overnight events and patient remains intubated this morning. His electrolytes were stable this morning and his BUN was 31 with a creatinine of 4.5. Patient will undergo hemodialysis today. Exam Vital Signs Temp Pulse Resp BP Pulse Ox O2 Del Method O2 Flow Rate 96.9 F 74 24 H 168/87 H 98 Mechanical Ventilation 5 09/13/24 04:00 09/13/24 07:34 09/11/24 15:40 09/13/24 07:34 09/13/24 07:34 09/13/24 04:00 09/10/24 08:00 FiO2 30 09/13/24 07:34 Narrative Exam Constitutional: Obese male that is intubated and sedated. CVS: RRR, S1 and S2 present, no murmurs, rubs or gallops . RESP: CTAB, there is bilateral rhonchi and rales with shortness of breath. GI: Normal BS, Nontender/Nondistended. MSK: Full range of motion, No trauma or deformities or masses. AV fistula on the right arm with right arm appearing larger than the left without erythema or discharge Skin: Warm to touch, Dry. No rashes or lesions. No hematomas Neuro: Deferred Psych: (AAO) x0 . Patient intubated and sedated and responds only to noxious stimuli Objective Labs 09/13/24 04:47 09/13/24 04:47 Labs: Laboratory Results - last 24 hr 09/13/24 04:47 WBC 15.9 H RBC 3.82 L Hgb 11.9 L Hct 38.5 L MCV 101 H MCH 31.2 MCHC 30.9 L RDW Std Deviation 56.6 H Plt Count 141 Neut % (Auto) 87 H Lymph % (Auto) 3 L Charles % (Auto) 6 Eos % (Auto) 2 Baso % (Auto) 1 Neut # (Auto) 13.9 H Lymph # (Auto) 0.5 L Charles # (Auto) 1.0 H Eos # (Auto) 0.3 Baso # (Auto) 0.1 Immature Gran # (Auto) 0.18 H Absolute Nucleated RBC 0.00 Immature Gran % 1 H Nucleated RBC % 0 VBG pH 7.30 L VBG pCO2 52 D VBG pO2 45 VBG O2 Sat (Lalo) 84 L VBG Base Excess -2 Sodium 138 Potassium 4.5 Chloride 103 Carbon Dioxide 24.0 Anion Gap 11 BUN 31 H Creatinine 4.5 H* D Estim Creat Clear Calc 29.5 L eGFR 17 L BUN/Creatinine Ratio 7 L Glucose 137 H D Calculated Osmolality 284 Calcium 9.0 Corrected Calcium 9.5 Phosphorus 4.2 Magnesium 1.7 Total Bilirubin 0.5 AST 25 ALT 11 Alkaline Phosphatase 152 H D Total Protein 5.9 Albumin 3.4 L Globulin 2.5 Albumin/Globulin Ratio 1.4 Random Vancomycin 16.2 ABG Interpretation ABG results: 09/10/24 09/10/24 09/10/24 09:22 11:05 13:50 ABG pH 6.90 L* 7.03 L* D 7.11 L* ABG pCO2 111 H* 78 H* D 64 H D ABG pO2 83 40 L* D 48 L* ABG HCO3 22 21 21 ABG O2 Saturation 94 67 L 86 L ABG Base Excess -13 L -12 L -10 L VBG pH VBG pCO2 VBG pO2 VBG Base Excess 09/10/24 09/10/24 09/11/24 19:49 21:58 17:57 ABG pH 7.09 L* 7.13 L* ABG pCO2 89 H* D 77 H* D ABG pO2 251 H D 61 L D ABG HCO3 27 H 25 ABG O2 Saturation 100 H 91 ABG Base Excess -5 L -6 L VBG pH 7.41 VBG pCO2 41 VBG pO2 34 VBG Base Excess 1 09/12/24 09/13/24 04:49 04:47 ABG pH ABG pCO2 ABG pO2 ABG HCO3 ABG O2 Saturation ABG Base Excess VBG pH 7.46 7.30 L VBG pCO2 36 52 D VBG pO2 39 45 VBG Base Excess 2 -2 Quality Measures Quality Measures none Assessment & Plan Assessment Current Active Medications: Generic Name Dose Route Start Last Admin Trade Name Freq PRN Reason Stop Dose Admin Hydrocodone Bitart/Acetaminophen 1 tab 09/12/24 12:00 09/13/24 05:09 Hydrocodone/Apap 10/325 Tab PO 09/17/24 11:59 1 tab Q6HR FOREIGN Administration Albuterol/Ipratropium 3 ml 09/10/24 14:28 09/10/24 16:28 Albuterol/Ipratropium (Duoneb) Rt Lashaun 3 Ml Nebu INH 10/10/24 14:59 3 ml Q4HRRT PRN Administration wheezing Cyclobenzaprine HCl 5 mg 09/12/24 14:00 09/13/24 05:08 Cyclobenzaprine 5 Mg Tablet PO 10/12/24 13:59 5 mg TID FOREIGN Administration Gabapentin 600 mg 09/12/24 14:00 09/13/24 05:08 Gabapentin 300 Mg Capsule PO 10/12/24 13:59 600 mg TID FOREIGN Administration Albumin Human 25 gm in 100 mls @ 100 mls/min 09/10/24 16:17 09/11/24 14:27 Albuminar-25 Ivpb IV 100 mls/min PRN PRN Administration DIALYSIS Fentanyl Citrate 2,500 mcg in 250 mls @ 2.5 mls/hr 09/10/24 18:30 09/12/24 18:00 Sublimaze Inj 2,500 Mcg/250 Ml Bag IV 09/15/24 18:29 125 mcg/hr .Q24H PRN 12.5 mls/hr PER PROTOCOL Titration Protocol 25 MCG/HR Propofol 1,000 mg in 100 mls @ 2.994 mls/hr 09/10/24 18:31 09/12/24 13:10 Diprivan Ivpb IV 10/10/24 18:30 0 mcg/kg/min .Q24H PRN 0 mls/hr PER PROTOCOL Titration Protocol 5 MCG/KG/MIN Meropenem 500 mg/ Sodium 50 mls @ 100 mls/hr 09/11/24 10:15 09/13/24 08:38 Chloride IV 09/18/24 10:14 100 mls/hr QDAY FOREIGN Administration Dexmedetomidine/Sodium Chloride 400 mcg in 100 mls @ 5.225 mls/hr 09/12/24 12:03 09/13/24 07:00 Precedex Ivpb IV 10/12/24 12:02 1.4 mcg/kg/hr .Q19H9M PRN 36.575 mls/hr Per PROTOCOL Titration Protocol 0.2 MCG/KG/HR Vancomycin/Sodium Chloride 100 mls @ 120 mls/hr 09/13/24 16:00 Vancomycin/Ns 500 Mg Ivpb IV 09/13/24 16:49 X1 ONE Levothyroxine Sodium 25 mcg 09/11/24 06:00 09/13/24 05:08 Levothyroxine Sodium 25 Mcg Tablet PO 10/11/24 05:59 25 mcg ACBR FOREIGN Administration Midodrine 10 mg 09/10/24 23:45 09/13/24 05:09 Midodrine 5 Mg Tablet PO 10/10/24 23:44 10 mg TID FOREIGN Administration Ondansetron HCl 4 mg 09/10/24 14:34 Ondansetron Inj 2 Mg/Ml Inj 2 Ml IV 10/10/24 14:44 Q8H PRN nausea vomiting Protocol Pantoprazole Sodium 40 mg 09/11/24 09:00 09/13/24 08:38 Pantoprazole Inj 40 Mg Vial IVP 10/11/24 08:59 40 mg QDAY FOREIGN Administration Pharmacy Consult 1 each 09/11/24 09:00 09/12/24 10:45 Vancomycin Pharmacy To Dose 1 Each Each IV 10/11/24 08:59 Not Given QDAY FOREIGN Sodium Chloride 15 ml 09/13/24 08:45 Sodium Chloride Rt 10% 15 Ml Nebu INH 10/13/24 08:44 TID FOREIGN Plan 33-year-old male with past medical history of paraplegia, hypertension, ESRD on hemodialysis Friday and Friday, recurrent UTIs, status post tracheostomy and ileostomy admitted due to acute hypoxic respiratory failure. #ESRD on hemodialysis Friday and Friday Patient presented after missing his hemodialysis appointment on Friday and last 1 being a week ago (last Friday) prior to admission Patient's sodium was 135, potassium 5.4 with a BUN of 38 and a creatinine of 4.9 Patient's x-ray showed vascular congestion on admission which has improved with sessions of hemodialysis. Plan: ? Patient to receive hemodialysis today ? Follow-up with daily CMP ? Electrolyte replacement protocol #Acute hypoxic hypercapnic respiratory failure #UTI #Obesity hypoventilation syndrome #Paraplegia #Hypertension ?As managed by primary team Thank you for allowing us to be part of patient's care during his time in [facility] I discussed patient's care with attending physician, Dr Yancy Sosa PGY3 Attending Provider Attestation/Addendum Patient seen and examined with resident physician Dr. Sosa. Note reviewed, agree with findings and recommendations. patient currently seen on dialysis. Tolerating dialysis without any problems. Hemodialysis for 3 hours, 2K, ultrafiltration 2 L, Epogen 6000, no heparin ordered. Plan of care discussed with the dialysis nurse. Please see dialysis flowsheet for further details. Patient got extubated. More alert and awake. Agreed for 3 times weekly dialysis. Conveyed the same to Dr. Jeff.
[2024-09-13] MEDS: SODIUM CHLORIDE RT 10% 15 ML NEBU INH (09:09)
--- NOTE | 2024-09-13 09:24 | PC.SS ---
Zoran Matson is a 31-year-old male admitted to ICU for SOB. Pt was extubated this morning therefore SS contacted pts mother Juliana to complete initial assessment and discuss DC planning. SS contacted Juliana Matson [phone], role and reason for call was explained. Juliana confirmed all demographic information. She identified herself as the pts medical decision maker. 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 Pt is a max assist in all ALDs as he is paraplegic. Pt utilizes [facility] and his cupola tender is Dr. Sotelo (Friday and Friday). DC options discussed and family wishes for pt to return home at the time of DC. Pt will need gurney transport through [facility]. SS will remain available for any additional needs or concerns. DC plan: Home with transport PCP: Oni DOE DM: Juliana Landrum [phone]
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
[2024-09-13 15:32] LABS: Hepatitis A Antibody IgM Non Reactive (Non React); Hepatitis B Core Antibody IgM Non Reactive (Non React); Hepatitis B Surface Ab NonReact(Not Immune) (Immune); Hepatitis B Surface Antigen Non Reactive (Non React); Hepatitis C Antibody Non Reactive (Non React)
[2024-09-13] MEDS: VANCOMYCIN/NS 500 MG IVPB 100 ML 120 MG IV (18:33)
[2024-09-13] MEDS: SODIUM BICARBONATE 650 MG TABLET PO (21:01)
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
[2024-09-13] MEDS: HYDROmorphone INJ 2 MG/ML VIAL 1 MG IVP (22:55)
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
[2024-09-14] VITALS (21 sets, daily range): BP systolic 104–141; BP diastolic 38–82; PULSE 74–116; RESP 16–23; TEMP 36–36.9; O2SAT 87–98; BMI 30.8
[2024-09-14] MEDS: HYDROmorphone INJ 2 MG/ML VIAL 0.5 MG IVP ×4 (02:46→22:26)
[2024-09-14] MEDS: GABAPENTIN 300 MG CAPSULE 600 MG PO ×3 (05:57→21:22)
[2024-09-14] MEDS: CYCLObenzaPRINE 5 MG TABLET PO ×3 (05:57→21:22)
[2024-09-14] MEDS: LEVOTHYROXINE SODIUM 25 MCG TABLET PO (05:57)
[2024-09-14] MEDS: HYDROcodone/APAP 10/325 TAB PO ×3 (05:57→17:19)
--- NOTE | 2024-09-14 06:00 | XR_ITS ---
Examination: AP chest single view Technique one AP portable upright chest single view Exam date and time: September 14, 2024, 0530 hours Comparison September 13, 2024 INDICATIONS: Extensive pneumonia, hypoxic respiratory failure this week. FINDINGS: The patient has been extubated Bilateral pneumonia remains, diffuse in the left lung and at the right base Mild enlargement cardiac contour IMPRESSION: Bilateral pneumonia remains, diffuse in the left lung and at the right base
[2024-09-14 06:05] LABS: Base Excess, Venous 1 (-3-3); O2 Saturation, Venous 55 % (96-97); PCO2, Venous 60 mmHg (36-56); PO2, Venous 28 mmHg (15-58); pH, Venous 7.29 (7.33-7.66)
[2024-09-14 06:06] LABS: Basophils # (Auto) 0.1 Thou/mm3 (0.0-0.2); Basophils % (Auto) 0 % (0-2.5); Eosinophils # (Auto) 0.4 Thou/mm3 (0.0-0.5); Eosinophils % (Auto) 3 % (0-10); Hematocrit 37.2 % (41.0-53.0); Hemoglobin 11.4 g/dL (13.5-16.0); Immature Granulocytes % (Auto) 0 % (0-0); Immature Granulocytes Auto 0.05 Thou/mm3 (0.00-0.00); Lymphocytes # (Auto) 0.7 Thou/mm3 (1.0-4.8); Lymphocytes % (Auto) 5 % (10-50); Mean Corpuscular HGB Conc 30.6 g/dl (31.0-37.0); Mean Corpuscular Hemoglobin 31.3 pg (25.0-35.0); Mean Corpuscular Volume 102 fL (80-100); Monocytes # (Auto) 1.3 Thou/mm3 (0.0-0.8); Monocytes % (Auto) 9 % (0-12); Neutrophils # (Auto) 11.3 Thou/mm3 (1.8-7.7); Neutrophils % (Auto) 82 % (37-80); Nucleated Red Blood Cell % 0 /100 WBC (0); Platelet Count 161 Thou/mm3 (140-440); RDW Standard Deviation 57.8 fL (35.1-43.9); Red Blood Count 3.64 Miln/mm3 (4.50-5.90); White Blood Count 13.7 Thou/mm3 (3.8-10.6)
[2024-09-14 07:03] LABS: Alanine Aminotransferase 10 U/L (10-49); Albumin, Serum 3.8 gm/dL (3.5-5.0); Albumin/Globulin Ratio 1.4 (1.2-2.2); Alkaline Phosphatase 190 U/L (46-116); Anion Gap 8 (7-16); Aspartate Amino Transferase 18 U/L (0-34); BUN/Creatinine Ratio 6 Ratio (12-20); Bilirubin,Total 0.4 mg/dL (0.3-1.2); Blood Urea Nitrogen 25 mg/dL (9-23); Calcium 9.1 mg/dL (8.3-10.6); Calcium (Corrected) 9.3 mg/dL (8.5-10.1); Carbon Dioxide 27.7 mMol/L (20.0-31.0); Chloride 100 mMol/L (98-107); Creatinine (Component) 3.9 mg/dL (0.6-1.3); Estimated Creatinine Clearance 34.7 mL/min (>60); Globulin 2.8 gm/dL (2.3-3.5); Glucose 73 mg/dL (74-106); Osmolality,Calculated 275 (275-295); Potassium 3.2 mMol/L (3.4-5.1); Sodium 136 mMol/L (136-145); Total Protein 6.6 gm/dL (5.7-8.2); Vancomycin,Random 22.5 mcg/mL; eGFR 20 See Note
[2024-09-14] MEDS: PANTOPRAZOLE INJ 40 MG VIAL IVP (08:00)
[2024-09-14] MEDS: SODIUM BICARBONATE 650 MG TABLET PO ×2 (08:01→21:22)
[2024-09-14] MEDS: HEPARIN SOD INJ 5000 UNIT/ML VIAL SC ×2 (08:01→21:22)
[2024-09-14] MEDS: SEVELAMER CARBONATE 800 MG TABLET PO ×3 (08:01→17:19)
--- NOTE | 2024-09-14 09:21 | ESPR_ITS ---
Documentation for date of: 09/14/24 Subjective Subjective Interval history: Mr. Matson is a 33-year-old male with past medical history of paraplegia, hypertension, ESRD on hemodialysis Friday and Friday(under Dr. 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 Prior to seeing patient at bedside the consultation was placed for the need for hemodialysis as patient missed his last session on Friday due to not feeling well. Patient was given Dilaudid 1.5 mg throughout the night and was found to be obtunded by the primary team with minimal response to sternal rub. The ER physician was informed patient was given Narcan and placed on BiPAP after which patient woke up. His ABG showed a pH of 6.9 and a CO2 of 111 likely secondary from the hypoxemic hypercapnia and hypoventilation due to medication and improved to 7.03 and PCO2 decreased to 78 after Narcan. When I saw the patient at bedside he was arguing with the nurses demanding pain medications as he has had severe low back pain. Patient was a poor historian and was adamant about the pain medication before answering any questions I just managed to get out of him that he missed his dialysis session as he was not feeling well with generalized weakness nausea vomiting as well as right arm pain and swelling of his AV fistula on the right arm. Patient's sodium was 135, potassium 5.4, BUN is 38 creatinine 4.9 and a glucose of 97. Patient also has obesity hypoventilation syndrome. His UA was positive for UTI and cultures were obtained. Nephrology team was consulted for the need of dialysis. Dialysis was ordered and will continue to follow patient closely in collaboration with the primary team. 09/11/24: Patient seen and examined in the ICU. Overnight patient seemed to have worsening hypoxic respiratory failure with increased work of breathing after which patient needed to be intubated. Patient's potassium was elevated this morning at 5.7 BUN was 29 and creatinine was 4.4. Patient will receive hemodialysis today. 09/14/2024 currently seen in medical floor. Currently on dialysis. He seems to be in good spirits. Review of Systems Review of Systems Narrative Review of Systems: Denies any chest pain, shortness of breath. Did have edema in the right upper extremity Exam Vital Signs Temp Pulse Resp BP Pulse Ox O2 Del Method O2 Flow Rate 36.7 C 101 H 18 109/61 92 L Nasal Cannula 1 09/14/24 08:49 09/14/24 09:15 09/14/24 08:49 09/14/24 09:15 09/14/24 08:49 09/14/24 07:22 09/14/24 08:49 FiO2 30 09/13/24 15:11 Narrative Exam Constitutional: Obese male seen on dialysis. CVS: RRR, S1 and S2 present, no murmurs, rubs or gallops . RESP: CTAB, there is bilateral rhonchi and rales with shortness of breath. GI: Normal BS, Nontender/Nondistended. Ileostomy MSK: Full range of motion, No trauma or deformities or masses. AV fistula on the right arm with right arm edema Skin: Warm to touch, Dry. No rashes or lesions. No hematomas Neuro: Patient is paraplegic, contractures noted Objective Labs 09/14/24 05:48 09/14/24 05:48 Labs: Laboratory Results - last 24 hr 09/13/24 09/14/24 14:00 05:48 WBC 13.7 H RBC 3.64 L Hgb 11.4 L Hct 37.2 L MCV 102 H MCH 31.3 MCHC 30.6 L RDW Std Deviation 57.8 H Plt Count 161 Neut % (Auto) 82 H Lymph % (Auto) 5 L [place] % (Auto) 9 Eos % (Auto) 3 Baso % (Auto) 0 Neut # (Auto) 11.3 H Lymph # (Auto) 0.7 L [place] # (Auto) 1.3 H Eos # (Auto) 0.4 Baso # (Auto) 0.1 Immature Gran # (Auto) 0.05 H Absolute Nucleated RBC 0.00 Immature Gran % 0 Nucleated RBC % 0 VBG pH 7.29 L VBG pCO2 60 H VBG pO2 28 VBG O2 Sat (Lalo) 55 L D VBG Base Excess 1 Sodium 136 Potassium 3.2 L D Chloride 100 Carbon Dioxide 27.7 Anion Gap 8 BUN 25 H Creatinine 3.9 H D Estim Creat Clear Calc 34.7 L eGFR 20 L BUN/Creatinine Ratio 6 L Glucose 73 L D Calculated Osmolality 275 Calcium 9.1 Corrected Calcium 9.3 Total Bilirubin 0.4 AST 18 ALT 10 Alkaline Phosphatase 190 H D Total Protein 6.6 Albumin 3.8 Globulin 2.8 Albumin/Globulin Ratio 1.4 Random Vancomycin 22.5 Hepatitis A IgM Ab Non Reactive Hep Bs Antigen Non Reactive Hep Bs Antibody NonReact(Not Immune) L Hep B Core IgM Ab Non Reactive Hepatitis C Antibody Non Reactive ABG Interpretation ABG results: 09/10/24 09/10/24 09/10/24 09:22 11:05 13:50 ABG pH 6.90 L* 7.03 L* D 7.11 L* ABG pCO2 111 H* 78 H* D 64 H D ABG pO2 83 40 L* D 48 L* ABG HCO3 22 21 21 ABG O2 Saturation 94 67 L 86 L ABG Base Excess -13 L -12 L -10 L VBG pH VBG pCO2 VBG pO2 VBG Base Excess 09/10/24 09/10/24 09/11/24 19:49 21:58 17:57 ABG pH 7.09 L* 7.13 L* ABG pCO2 89 H* D 77 H* D ABG pO2 251 H D 61 L D ABG HCO3 27 H 25 ABG O2 Saturation 100 H 91 ABG Base Excess -5 L -6 L VBG pH 7.41 VBG pCO2 41 VBG pO2 34 VBG Base Excess 1 09/12/24 09/13/24 09/14/24 04:49 04:47 05:48 ABG pH ABG pCO2 ABG pO2 ABG HCO3 ABG O2 Saturation ABG Base Excess VBG pH 7.46 7.30 L 7.29 L VBG pCO2 36 52 D 60 H VBG pO2 39 45 28 VBG Base Excess 2 -2 1 Assessment & Plan Additional Assessment & Plan Additional Plan: 33-year-old male with past medical history of paraplegia, hypertension, ESRD on hemodialysis Friday and Friday, recurrent UTIs, status post tracheostomy and ileostomy admitted due to acute hypoxic respiratory failure. #ESRD on hemodialysis Friday and Friday Patient presented after missing his hemodialysis appointment Labs reviewed Plan: ? Patient currently seen on dialysis. Tolerating dialysis without any problems. Hemodialysis for 3 hours, 2K, ultrafiltration 1 L, Epogen 6000, no heparin ordered. Plan of care discussed with the dialysis nurse. Please see dialysis flowsheet for further details. #Acute hypoxic hypercapnic respiratory failure #UTI #Obesity hypoventilation syndrome #Paraplegia #Hypertension ?As managed by ICU team Quality - progress note Quality Measures Quality Measures: VTE prophylaxis Reason for Continued Stay Reason for Continued Stay: further monitoring
--- NOTE | 2024-09-14 10:09 | PC.NURSE ---
Pt. has to be taken off of HD early, due to proximity to another pt. Dr. Haines called and informed. Stated pt. doesn't need anymore HD since he had it yesterday.
[2024-09-14] MEDS: MEROPENEM INJ 500 MG in SODIUM CHLORIDE 0.9% (Popper) 50 ML 100 MG IV (10:30)
--- NOTE | 2024-09-14 10:58 | PC.NURSE ---
Richardson catheter placed, 600 mls of coke color urine noted in bag and milky white with sediment in tubing, patient tolerated well. Dr. Santana made aware.
--- NOTE | 2024-09-14 12:19 | PC.SS ---
SS met with pt to discuss d/c. Pt states he has been utilizing home O2 from [facility] but was recently informed they will not be servicing member. SS called [facility] and spoke to their provider relations representative, Humphrey who states they will service home O2 until September 20, 2024. Humphrey explained patient's health insurance has changed. [facility] will pharmacy picking technician O2 supplies from patient's home. Pt is aware. SS spoke to bedside nurse, Elise who is aware and will perform O2 testing to order home O2.
--- NOTE | 2024-09-14 14:14 | PC.NURSE ---
patient on 2-3L NS, room air at rest 87%.
--- NOTE | 2024-09-14 16:04 | PC.SS ---
OXYGEN Pt is discharged in a chronic stable state and has been treated optimally and has other respiratory needs. ?Oxygen has been ordered due to Acute Hypoxic Respiratory Failure.
--- NOTE | 2024-09-14 16:20 | PC.SS ---
SS has sent DME order for home O2 to [facility] using [facility], per patient's request.
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
[2024-09-14] MEDS: MIDODRINE 5 MG TABLET 10 MG PO (21:21)
[2024-09-14] MEDS: SODIUM CHLORIDE RT 10% 15 ML NEBU INH (23:02)
[2024-09-15] VITALS (129 sets, daily range): BP systolic 78–197; BP diastolic 32–130; PULSE 61–136; RESP 0–95; TEMP 35.9–36.6; O2SAT 77–100; BMI 31.4
[2024-09-15] MEDS: HYDROcodone/APAP 10/325 TAB PO (00:04)
--- NOTE | 2024-09-15 03:49 | PC.RT ---
at 3:28 went into room noted pt snoring, try waking up pt found on 4L nc, pt not waking up called KENIA Dimas for help, pt not responding spo2 85% hr 114, RR26, place pt on bipap on 04/23, 20R 70% fio2 to try and waking pt up, spo2 improved to the 90s, but not waking, rapid called.
--- NOTE | 2024-09-15 03:50 | PC.NURSE ---
accessed patient's chart to assist primary nurse for rapid response.
--- NOTE | 2024-09-15 03:52 | PC.RT ---
DR. Rivera at bedside
[2024-09-15] MEDS: NALOXONE INJ 1 MG/ML SYRINGE 2 ML 2 MG IV ×2 (03:53→08:59)
[2024-09-15] MEDS: SODIUM CHLORIDE 0.9% 250 ML 250 ML 999 ML IV (03:54)
--- NOTE | 2024-09-15 03:55 | XR_ITS ---
Examination: AP chest single view TECHNIQUE: AP portable semiupright chest single view Examination timed cortical [id number] hours Comparison September 14, 2024 INDICATION: Rapid response, hypoxic episode today. FINDINGS: Significant bilateral pneumonia, most prominent in the right lower lobe Prominent vascular congestion Mild prominence left ventricle Prominent mediastinum, please see the CT chest report July 16, 2024 Impression : Significant bilateral pneumonia Suspicious for mild heart failure
--- NOTE | 2024-09-15 03:58 | PC.RT ---
attempted abg was unsuccessful, DR. Rivera ordered a VBG
[2024-09-15 04:10] LABS: Base Excess, Venous -2 (-3-3); O2 Saturation, Venous 63 % (96-97); PCO2, Venous 98 mmHg (36-56); PO2, Venous 37 mmHg (15-58)
[2024-09-15 04:13] LABS: Basophils # (Auto) 0.1 Thou/mm3 (0.0-0.2); Basophils % (Auto) 1 % (0-2.5); Eosinophils # (Auto) 0.3 Thou/mm3 (0.0-0.5); Eosinophils % (Auto) 3 % (0-10); Hematocrit 37.3 % (41.0-53.0); Hemoglobin 11.1 g/dL (13.5-16.0); Immature Granulocytes % (Auto) 1 % (0-0); Immature Granulocytes Auto 0.15 Thou/mm3 (0.00-0.00); Lymphocytes # (Auto) 0.9 Thou/mm3 (1.0-4.8); Lymphocytes % (Auto) 8 % (10-50); Mean Corpuscular HGB Conc 29.8 g/dl (31.0-37.0); Mean Corpuscular Hemoglobin 30.6 pg (25.0-35.0); Mean Corpuscular Volume 103 fL (80-100); Monocytes # (Auto) 1.3 Thou/mm3 (0.0-0.8); Monocytes % (Auto) 13 % (0-12); Neutrophils # (Auto) 7.7 Thou/mm3 (1.8-7.7); Neutrophils % (Auto) 74 % (37-80); Nucleated Red Blood Cell % 0 /100 WBC (0); Platelet Count 151 Thou/mm3 (140-440); RDW Standard Deviation 57.2 fL (35.1-43.9); Red Blood Count 3.63 Miln/mm3 (4.50-5.90); White Blood Count 10.4 Thou/mm3 (3.8-10.6)
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
--- NOTE | 2024-09-15 04:45 | PC.RT ---
Nicole Ocampo at bedside waiting for pt to be transfer to ICU
--- NOTE | 2024-09-15 04:58 | PD.RESEVENT ---
Documentation for date of: 09/15/24 Event Note Event Note: At 3:32 AM Rapid response was called due to patient being lethargic. He was not rousable, BP was 78/32, SpO2 99%. Previously he declined BiPAP for 2 nights. He got 2mg of Naloxone IV, his mentation has not improved. He was placed on BiPAP. VBGs showed pCO2 of 98. GCS was 9. Decision was made to upgrade him to the ICU, continue BiPAP, start him on precedex drip. Plan of care discussed with attending Dr. Rivera. Leslie Hinojosa MD, PGY 1.
[2024-09-15] MEDS: DEXMEDETOMIDINE 400 MCG IVPB 400 MCG/100 ML BAG 38.102 MCG IV (05:00)
[2024-09-15 05:21] LABS: Alanine Aminotransferase 9 U/L (10-49); Albumin, Serum 3.5 gm/dL (3.5-5.0); Albumin/Globulin Ratio 1.3 (1.2-2.2); Alkaline Phosphatase 181 U/L (46-116); Anion Gap 4 (7-16); Aspartate Amino Transferase 15 U/L (0-34); BUN/Creatinine Ratio 6 Ratio (12-20); Bilirubin,Total 0.2 mg/dL (0.3-1.2); Blood Urea Nitrogen 28 mg/dL (9-23); Calcium 8.9 mg/dL (8.3-10.6); Calcium (Corrected) 9.3 mg/dL (8.5-10.1); Carbon Dioxide 32.3 mMol/L (20.0-31.0); Chloride 101 mMol/L (98-107); Creatinine (Component) 4.4 mg/dL (0.6-1.3); Estimated Creatinine Clearance 30.8 mL/min (>60); Globulin 2.8 gm/dL (2.3-3.5); Glucose 114 mg/dL (74-106); Osmolality,Calculated 280 (275-295); Sodium 137 mMol/L (136-145); Total Protein 6.3 gm/dL (5.7-8.2); Vancomycin,Random 15.3 mcg/mL; eGFR 17 See Note
[2024-09-15] MEDS: LEVOTHYROXINE SODIUM 25 MCG TABLET PO (06:09)
[2024-09-15] MEDS: MIDODRINE 5 MG TABLET 10 MG PO (06:10)
[2024-09-15] MEDS: DEXMEDETOMIDINE 400 MCG IVPB 400 MCG/100 ML BAG 5.443 MCG IV (07:15)
[2024-09-15] MEDS: NALOXONE INJ 1 MG/ML SYRINGE 2 ML 0.4 MG IV (07:27)
--- NOTE | 2024-09-15 08:00 | PC.NURSE ---
Called clinic charge nurse to ask status of patient - I'm assisting with TeleSpeech today. change control coordinator discussed with MD and communicated that patient is on BIPAP and is not appropriate for a speech eval today. They will enter an NPO order, and they asked that Speech eval be on hold, to check back tomorrow. I communicated this information to the Speech Therapist.
[2024-09-15 08:08] LABS: Base Excess, Venous 0 (-3-3); O2 Saturation, Venous 93 % (96-97); PCO2, Venous 43 mmHg (36-56); PO2, Venous 56 mmHg (15-58); pH, Venous 7.38 (7.33-7.66)
[2024-09-15 08:44] LABS: Base Excess -1 (-3-3); HCO3 27 mEq/L (20-26); Inspired Oxygen, FIO2 70 %; O2 Saturation 101 % (91-98); PCO2 58 mmHg (32.0-48.0); PO2 240 mmHg (83-108); pH, Arterial 7.28 (7.35-7.45)
--- NOTE | 2024-09-15 08:44 | ESPR_ITS ---
Documentation for date of: 09/15/24 Subjective Subjective Interval history: Mr. Matson is a 33-year-old male with past medical history of paraplegia, hypertension, ESRD on hemodialysis Friday and Friday(under Dr. 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 Prior to seeing patient at bedside the consultation was placed for the need for hemodialysis as patient missed his last session on Friday due to not feeling well. Patient was given Dilaudid 1.5 mg throughout the night and was found to be obtunded by the primary team with minimal response to sternal rub. The ER physician was informed patient was given Narcan and placed on BiPAP after which patient woke up. His ABG showed a pH of 6.9 and a CO2 of 111 likely secondary from the hypoxemic hypercapnia and hypoventilation due to medication and improved to 7.03 and PCO2 decreased to 78 after Narcan. When I saw the patient at bedside he was arguing with the nurses demanding pain medications as he has had severe low back pain. Patient was a poor historian and was adamant about the pain medication before answering any questions I just managed to get out of him that he missed his dialysis session as he was not feeling well with generalized weakness nausea vomiting as well as right arm pain and swelling of his AV fistula on the right arm. Patient's sodium was 135, potassium 5.4, BUN is 38 creatinine 4.9 and a glucose of 97. Patient also has obesity hypoventilation syndrome. His UA was positive for UTI and cultures were obtained. Nephrology team was consulted for the need of dialysis. Dialysis was ordered and will continue to follow patient closely in collaboration with the primary team. 09/11/24: Patient seen and examined in the ICU. Overnight patient seemed to have worsening hypoxic respiratory failure with increased work of breathing after which patient needed to be intubated. Patient's potassium was elevated this morning at 5.7 BUN was 29 and creatinine was 4.4. Patient will receive hemodialysis today. 09/13/2024: Patient seen and examined in ICU today. There were no major overnight events and patient remains intubated this morning. His electrolytes were stable this morning and his BUN was 31 with a creatinine of 4.5. Patient will undergo hemodialysis today. 09/15/24: Patient seen and examined in ICU. This morning patient seems very somnolent with minimal response to her sternal rub on the BiPAP. ABG was initially acidotic with a pH of 7.1 which subsequently improved to 7.28 after patient received 2 doses of Narcan. Patient's electrolytes were within normal limits aside for a bicarb of 32.3. BUN is 28 today with a creatinine of 4.4. Will plan for patient to undergo dialysis tomorrow. Exam Vital Signs Temp Pulse Resp BP Pulse Ox O2 Del Method O2 Flow Rate 96.6 F L 78 0 L 133/95 H 97 Nasal Cannula 4 09/15/24 03:32 09/15/24 06:30 09/15/24 06:30 09/15/24 06:30 09/15/24 06:30 09/15/24 00:00 09/15/24 03:32 FiO2 70 09/15/24 04:46 Narrative Exam Constitutional: Obese male that was sleeping with the BiPAP on. CVS: RRR, S1 and S2 present, no murmurs, rubs or gallops . RESP: CTAB, there is bilateral rhonchi and rales with shortness of breath. GI: Normal BS, Nontender/Nondistended. MSK: Full range of motion, No trauma or deformities or masses. AV fistula on the right arm with right arm appearing larger than the left without erythema or discharge Skin: Warm to touch, Dry. No rashes or lesions. No hematomas Psych: (AAO) x0 . Patient was very somnolent and unresponsive to noxious stimuli. Objective Labs 09/17/24 05:45 09/16/24 07:12 Labs: Laboratory Results - last 24 hr 09/15/24 09/15/24 03:56 07:52 WBC 10.4 RBC 3.63 L Hgb 11.1 L Hct 37.3 L MCV 103 H MCH 30.6 MCHC 29.8 L RDW Std Deviation 57.2 H Plt Count 151 Neut % (Auto) 74 Lymph % (Auto) 8 L Bertie % (Auto) 13 H Eos % (Auto) 3 Baso % (Auto) 1 Neut # (Auto) 7.7 Lymph # (Auto) 0.9 L Bertie # (Auto) 1.3 H Eos # (Auto) 0.3 Baso # (Auto) 0.1 Immature Gran # (Auto) 0.15 H Absolute Nucleated RBC 0.00 Immature Gran % 1 H Nucleated RBC % 0 VBG pH 7.10 L 7.38 VBG pCO2 98 H D 43 D VBG pO2 37 56 VBG O2 Sat (Lalo) 63 L 93 L D VBG Base Excess -2 0 Sodium 137 Potassium 5.0 D Chloride 101 Carbon Dioxide 32.3 H Anion Gap 4 L BUN 28 H Creatinine 4.4 H* D Estim Creat Clear Calc 30.8 L eGFR 17 L BUN/Creatinine Ratio 6 L Glucose 114 H D Calculated Osmolality 280 Calcium 8.9 Corrected Calcium 9.3 Total Bilirubin 0.2 L AST 15 ALT 9 L Alkaline Phosphatase 181 H Total Protein 6.3 Albumin 3.5 Globulin 2.8 Albumin/Globulin Ratio 1.3 Random Vancomycin 15.3 ABG Interpretation ABG results: 09/10/24 09/10/24 09/10/24 09:22 11:05 13:50 ABG pH 6.90 L* 7.03 L* D 7.11 L* ABG pCO2 111 H* 78 H* D 64 H D ABG pO2 83 40 L* D 48 L* ABG HCO3 22 21 21 ABG O2 Saturation 94 67 L 86 L ABG Base Excess -13 L -12 L -10 L VBG pH VBG pCO2 VBG pO2 VBG Base Excess 09/10/24 09/10/24 09/11/24 19:49 21:58 17:57 ABG pH 7.09 L* 7.13 L* ABG pCO2 89 H* D 77 H* D ABG pO2 251 H D 61 L D ABG HCO3 27 H 25 ABG O2 Saturation 100 H 91 ABG Base Excess -5 L -6 L VBG pH 7.41 VBG pCO2 41 VBG pO2 34 VBG Base Excess 1 09/12/24 09/13/24 09/14/24 04:49 04:47 05:48 ABG pH ABG pCO2 ABG pO2 ABG HCO3 ABG O2 Saturation ABG Base Excess VBG pH 7.46 7.30 L 7.29 L VBG pCO2 36 52 D 60 H VBG pO2 39 45 28 VBG Base Excess 2 -2 1 09/15/24 09/15/24 03:56 07:52 ABG pH ABG pCO2 ABG pO2 ABG HCO3 ABG O2 Saturation ABG Base Excess VBG pH 7.10 L 7.38 VBG pCO2 98 H D 43 D VBG pO2 37 56 VBG Base Excess -2 0 Quality Measures Quality Measures VTE prophylaxis Assessment & Plan Assessment Current Active Medications: Generic Name Dose Route Start Last Admin Trade Name Freq PRN Reason Stop Dose Admin Hydrocodone Bitart/Acetaminophen 1 tab 09/12/24 12:00 09/15/24 00:04 Hydrocodone/Apap 10/325 Tab PO 09/17/24 11:59 1 tab Q6HR FOREIGN Administration Albuterol/Ipratropium 3 ml 09/10/24 14:28 09/10/24 16:28 Albuterol/Ipratropium (Duoneb) Rt Lashaun 3 Ml Nebu INH 10/10/24 14:59 3 ml Q4HRRT PRN Administration wheezing Cyclobenzaprine HCl 5 mg 09/12/24 14:00 09/14/24 21:22 Cyclobenzaprine 5 Mg Tablet PO 10/12/24 13:59 5 mg TID FOREIGN Administration Gabapentin 600 mg 09/12/24 14:00 09/14/24 21:22 Gabapentin 300 Mg Capsule PO 10/12/24 13:59 600 mg TID FOREIGN Administration Heparin Sodium (Porcine) 5,000 unit 09/14/24 09:00 09/14/24 21:22 Heparin Sod Inj 5000 Unit/Ml Vial SC 09/28/24 08:59 5,000 unit Q12HR FOREIGN Administration Albumin Human 25 gm in 100 mls @ 100 mls/min 09/10/24 16:17 09/11/24 14:27 Albuminar-25 Ivpb IV 100 mls/min PRN PRN Administration DIALYSIS Meropenem 500 mg/ Sodium 50 mls @ 100 mls/hr 09/11/24 10:15 09/14/24 10:30 Chloride IV 09/18/24 10:14 100 mls/hr QDAY FOREIGN Administration Dexmedetomidine/Sodium Chloride 400 mcg in 100 mls @ 5.443 mls/hr 09/15/24 05:48 09/15/24 07:15 Precedex Ivpb IV 10/15/24 05:47 0 mcg/kg/hr .[id number] PRN 0 mls/hr Per PROTOCOL Titration Protocol 0.2 MCG/KG/HR Naloxone HCl 2 mg/ Dextrose 500 mls @ 10 mls/hr 09/15/24 08:30 IV 10/15/24 08:29 .Q24H FOREIGN Levothyroxine Sodium 25 mcg 09/11/24 06:00 09/15/24 06:09 Levothyroxine Sodium 25 Mcg Tablet PO 10/11/24 05:59 25 mcg ACBR FOREIGN Administration Midodrine 10 mg 09/10/24 23:45 09/15/24 06:10 Midodrine 5 Mg Tablet PO 10/10/24 23:44 10 mg TID FOREIGN Administration Naloxone HCl 2 mg 09/15/24 08:25 Naloxone Inj 1 Mg/Ml Syringe 2 Ml IV 09/15/24 08:26 X1 ONE Ondansetron HCl 4 mg 09/10/24 14:34 Ondansetron Inj 2 Mg/Ml Inj 2 Ml IV 10/10/24 14:44 Q8H PRN nausea vomiting Protocol Pantoprazole Sodium 40 mg 09/11/24 09:00 09/14/24 08:00 Pantoprazole Inj 40 Mg Vial IVP 10/11/24 08:59 40 mg QDAY FOREIGN Administration Sevelamer Carbonate 800 mg 09/14/24 08:00 09/14/24 17:19 Sevelamer Carbonate 800 Mg Tablet PO 10/14/24 07:59 800 mg TIDWM FOREIGN Administration Sodium Bicarbonate 650 mg 09/13/24 21:00 09/14/24 21:22 Sodium Bicarbonate 650 Mg Tablet PO 10/13/24 20:59 650 mg BID FOREIGN Administration Sodium Chloride 15 ml 09/13/24 08:45 09/14/24 23:02 Sodium Chloride Rt 10% 15 Ml Nebu INH 10/13/24 08:44 15 ml TID FOREIGN Administration Plan 33-year-old male with past medical history of paraplegia, hypertension, ESRD on hemodialysis Friday and Friday, recurrent UTIs, status post tracheostomy and ileostomy admitted due to acute hypoxic respiratory failure. #ESRD on hemodialysis Friday and Friday Patient presented after missing his hemodialysis appointment on Friday and last 1 being a week ago (last Friday) prior to admission Patient's sodium was 135, potassium 5.4 with a BUN of 38 and a creatinine of 4.9 Patient's x-ray showed vascular congestion on admission which has improved with sessions of hemodialysis. Plan: ? Patient to receive hemodialysis tomorrow ? Follow-up with daily CMP ? Electrolyte replacement protocol #Acute hypoxic hypercapnic respiratory failure #UTI #Obesity hypoventilation syndrome #Paraplegia #Hypertension ?As managed by primary team Thank you for allowing us to be part of patient's care during his time in [facility] I discussed patient's care with attending physician, Dr Yancy Sosa PGY3 Attending Provider Attestation/Addendum Patient seen and examined with resident physician Dr. Sosa. Note reviewed, agree with findings and recommendations. Patient currently seen on dialysis. Tolerating dialysis without any problems. Hemodialysis for 3 hours, 2K, ultrafiltration 1 L, Epogen 6000, no heparin ordered. Plan of care discussed with the dialysis nurse. Please see dialysis flowsheet for further details.
[2024-09-15 08:51] LABS: Allen Test Performed/OK; Puncture Site Left Radial
[2024-09-15] MEDS: MEROPENEM INJ 500 MG in SODIUM CHLORIDE 0.9% (Popper) 50 ML 100 MG IV (08:58)
[2024-09-15] MEDS: PANTOPRAZOLE INJ 40 MG VIAL IVP (08:58)
[2024-09-15] MEDS: HEPARIN SOD INJ 5000 UNIT/ML VIAL SC ×2 (08:58→20:50)
[2024-09-15] MEDS: SEVELAMER CARBONATE 800 MG TABLET PO (08:58)
[2024-09-15] MEDS: NALOXONE INJ (Syringe) 2 MG in DEXTROSE 5%-WATER 498 ML 10 MG IV (08:59)
[2024-09-15] MEDS: SODIUM BICARBONATE 650 MG TABLET PO ×2 (09:02→20:51)
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
[2024-09-15] MEDS: hydrALAZINE INJ 20 MG/ML VIAL 10 MG IV ×2 (11:07→14:06)
[2024-09-15] MEDS: amLODIPine BESYLATE 5 MG TABLET GT (14:06)
--- NOTE | 2024-09-15 14:48 | PD.IDPROG ---
Subjective Subjective Interval history: rx change noted. likely colonized in urinary tract as resp sx were primary. Exam Vital Signs Temp Pulse Resp BP Pulse Ox O2 Del Method O2 Flow Rate 97.7 F 73 23 H 185/96 H 100 Nasal Cannula 4 09/15/24 08:00 09/15/24 14:06 09/15/24 14:01 09/15/24 14:06 09/15/24 14:01 09/15/24 00:00 09/15/24 03:32 FiO2 40 09/15/24 14:01 Narrative Exam loquacious. exam benign. on hd rt arm fistula noted. Objective - Internal Medicine Labs 09/15/24 03:56 09/15/24 03:56 Labs: Laboratory Results - last 24 hr 09/15/24 09/15/24 09/15/24 03:56 07:52 08:30 WBC 10.4 RBC 3.63 L Hgb 11.1 L Hct 37.3 L MCV 103 H MCH 30.6 MCHC 29.8 L RDW Std Deviation 57.2 H Plt Count 151 Neut % (Auto) 74 Lymph % (Auto) 8 L [place] % (Auto) 13 H Eos % (Auto) 3 Baso % (Auto) 1 Neut # (Auto) 7.7 Lymph # (Auto) 0.9 L [place] # (Auto) 1.3 H Eos # (Auto) 0.3 Baso # (Auto) 0.1 Immature Gran # (Auto) 0.15 H Absolute Nucleated RBC 0.00 Immature Gran % 1 H Nucleated RBC % 0 Puncture Site Left Radial ABG pH 7.28 L ABG pCO2 58 H ABG pO2 240 H ABG HCO3 27 H ABG O2 Saturation 101 H ABG Base Excess -1 VBG pH 7.10 L 7.38 VBG pCO2 98 H D 43 D VBG pO2 37 56 VBG O2 Sat (Lalo) 63 L 93 L D VBG Base Excess -2 0 FiO2 70 Sodium 137 Potassium 5.0 D Chloride 101 Carbon Dioxide 32.3 H Anion Gap 4 L BUN 28 H Creatinine 4.4 H* D Estim Creat Clear Calc 30.8 L eGFR 17 L BUN/Creatinine Ratio 6 L Glucose 114 H D Calculated Osmolality 280 Calcium 8.9 Corrected Calcium 9.3 Total Bilirubin 0.2 L AST 15 ALT 9 L Alkaline Phosphatase 181 H Total Protein 6.3 Albumin 3.5 Globulin 2.8 Albumin/Globulin Ratio 1.3 Random Vancomycin 15.3 ABG Interpretation ABG results: 09/10/24 09/10/24 09/10/24 09:22 11:05 13:50 ABG pH 6.90 L* 7.03 L* D 7.11 L* ABG pCO2 111 H* 78 H* D 64 H D ABG pO2 83 40 L* D 48 L* ABG HCO3 22 21 21 ABG O2 Saturation 94 67 L 86 L ABG Base Excess -13 L -12 L -10 L VBG pH VBG pCO2 VBG pO2 VBG Base Excess 09/10/24 09/10/24 09/11/24 19:49 21:58 17:57 ABG pH 7.09 L* 7.13 L* ABG pCO2 89 H* D 77 H* D ABG pO2 251 H D 61 L D ABG HCO3 27 H 25 ABG O2 Saturation 100 H 91 ABG Base Excess -5 L -6 L VBG pH 7.41 VBG pCO2 41 VBG pO2 34 VBG Base Excess 1 09/12/24 09/13/24 09/14/24 04:49 04:47 05:48 ABG pH ABG pCO2 ABG pO2 ABG HCO3 ABG O2 Saturation ABG Base Excess VBG pH 7.46 7.30 L 7.29 L VBG pCO2 36 52 D 60 H VBG pO2 39 45 28 VBG Base Excess 2 -2 1 09/15/24 09/15/24 09/15/24 03:56 07:52 08:30 ABG pH 7.28 L ABG pCO2 58 H ABG pO2 240 H ABG HCO3 27 H ABG O2 Saturation 101 H ABG Base Excess -1 VBG pH 7.10 L 7.38 VBG pCO2 98 H D 43 D VBG pO2 37 56 VBG Base Excess -2 0 Assessment & Plan A&P Narrative esbl in urine from 09/10. likely asb as no urinary sx and no bacteremia paraplegia ckd 5 on hd. resp failure, resolved. here primarily for resp sx current rx is microbiolocally ok but may be overkill clinically. he is only 33, but has been this way since age 13, so may want more rx, sadly, the more we treat him with abx, the more R the germs will get will change merrem to fosfomycin 3 gm once and f/u friday Time Spent With Patient Time: Total time spent is greater than 50% in coordination of care (as documented) at patient's floor/unit and/or counseling patient:
--- NOTE | 2024-09-15 17:02 | PC.SS ---
Update: Patient on BI-PAP intermittently. Patient NPO due to being obtunded. Patient is established with outpatient dialysis. Skin issue to bottom area, redness.
[2024-09-15] MEDS: ACETAMINOPHEN 325 MG TABLET 650 MG PO (18:35)
--- NOTE | 2024-09-15 19:03 | ESCONSULT_ITS ---
RE: KENNEDY LEDEZMA : 1990 DATE OF CONSULTATION: 09/15/2024 REFERRING PHYSICIAN: Dr. Muhammad. REASON FOR CONSULTATION: Paraplegia, chronic kidney disease stage V, renal stone disease, and bacteriuria. HISTORY OF PRESENT ILLNESS: The patient is an unfortunate loquacious 33-year-old man who reports he was intubated in the emergency room because he had his coronary catheter removed, which was in chronically. He makes a fair amount of urine still, at least he did. Now, he is worried that he might have renal stones that recurred. He has a known history of renal stone disease and may be on dialysis due to that. He had no urinary symptoms. He has only respiratory symptoms. He does have some CO2 retention and may need an in-house sleep study if we are able to do that before he goes. He does report a history of sleep apnea as well. MEDICAL PROBLEMS: Include renal stone disease, chronic kidney disease with a fistula in the left arm, and sleep apnea. SURGICAL HISTORY: Includes multiple stone procedures, dialysis access procedures including a fistula in the left arm and the right arm. He was intubated briefly, but is no longer intubated. PHYSICAL EXAMINATION: General: The patient is loquacious and not requiring ventilator support at this time HEENT: Benign. Lung: Benign. He has a chronic fistula on the right arm and peripheral IVs. No other lines or Richardson catheters are noted. He does not make much urine. He is on dialysis chronically. ASSESSMENT: 1. Probable asymptomatic bacteriuria. 2. Multiple allergies including Pip/Tazo and penicillins. RECOMMENDATIONS: 1. I am going to give him a single dose of fosfomycin for the germ in the urine and hope that is sufficient. 2. We will check on him again on Friday briefly. 3. If he has no symptoms still, I would probably not recheck his urine, but rather I would just see how things go. If he is doing okay, we can leave him off that for now. DT: 17:32:33 TT: 18:05:00 Ref: [id number] - TID: [id number] MTDD
[2024-09-15] MEDS: FOSFOMYCIN PWD 3 GM PACKET (NON-FORMULARY) PO (20:50)
[2024-09-15] MEDS: KETOROLAC INJ 30 MG/ML VIAL 15 MG IVP (20:50)
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
[2024-09-16] VITALS (29 sets, daily range): BP systolic 123–185; BP diastolic 69–107; PULSE 74–125; RESP 4–93; TEMP 36–36.8; O2SAT 92–98; BMI 31.4; BMI 29.3
[2024-09-16] MEDS: KETOROLAC INJ 30 MG/ML VIAL 15 MG IVP ×2 (00:44→19:22)
[2024-09-16] MEDS: ACETAMINOPHEN 325 MG TABLET 650 MG PO ×3 (02:52→19:58)
[2024-09-16] MEDS: LEVOTHYROXINE SODIUM 25 MCG TABLET PO (05:56)
[2024-09-16 07:29] LABS: Basophils % (Auto) 1 % (0-2.5); Eosinophils # (Auto) 0.2 Thou/mm3 (0.0-0.5); Eosinophils % (Auto) 3 % (0-10); Hematocrit 32.5 % (41.0-53.0); Hemoglobin 10.1 g/dL (13.5-16.0); Immature Granulocytes % (Auto) 2 % (0-0); Immature Granulocytes Auto 0.16 Thou/mm3 (0.00-0.00); Lymphocytes # (Auto) 0.9 Thou/mm3 (1.0-4.8); Lymphocytes % (Auto) 13 % (10-50); Mean Corpuscular HGB Conc 31.1 g/dl (31.0-37.0); Mean Corpuscular Hemoglobin 30.5 pg (25.0-35.0); Mean Corpuscular Volume 98 fL (80-100); Monocytes # (Auto) 0.9 Thou/mm3 (0.0-0.8); Monocytes % (Auto) 13 % (0-12); Neutrophils # (Auto) 4.7 Thou/mm3 (1.8-7.7); Neutrophils % (Auto) 68 % (37-80); Nucleated Red Blood Cell % 0 /100 WBC (0); Platelet Count 163 Thou/mm3 (140-440); RDW Standard Deviation 53.7 fL (35.1-43.9); Red Blood Count 3.31 Miln/mm3 (4.50-5.90); White Blood Count 6.9 Thou/mm3 (3.8-10.6)
[2024-09-16 07:42] LABS: Alanine Aminotransferase 10 U/L (10-49); Albumin, Serum 3.5 gm/dL (3.5-5.0); Albumin/Globulin Ratio 1.3 (1.2-2.2); Alkaline Phosphatase 172 U/L (46-116); Anion Gap 7 (7-16); Aspartate Amino Transferase 13 U/L (0-34); BUN/Creatinine Ratio 7 Ratio (12-20); Bilirubin,Total 0.2 mg/dL (0.3-1.2); Blood Urea Nitrogen 35 mg/dL (9-23); Calcium 8.4 mg/dL (8.3-10.6); Calcium (Corrected) 8.8 mg/dL (8.5-10.1); Carbon Dioxide 25.7 mMol/L (20.0-31.0); Chloride 99 mMol/L (98-107); Creatinine (Component) 4.9 mg/dL (0.6-1.3); Estimated Creatinine Clearance 27.9 mL/min (>60); Globulin 2.7 gm/dL (2.3-3.5); Glucose 124 mg/dL (74-106); Magnesium 1.6 mg/dL (1.6-2.6); Osmolality,Calculated 273 (275-295); Phosphorous 3.4 mg/dL (2.4-5.1); Potassium 4.2 mMol/L (3.4-5.1); Sodium 132 mMol/L (136-145); Total Protein 6.2 gm/dL (5.7-8.2); eGFR 15 See Note
--- NOTE | 2024-09-16 08:43 | PD.RESPRO ---
Documentation for date of: 09/16/24 Subjective Subjective Interval history: Mr. Matson is a 33-year-old male with past medical history of paraplegia, hypertension, ESRD on hemodialysis Friday and Friday(under Dr. Jeff at [facility]), recurrent UTIs, status post tracheostomy and ileostomy who presented in the customer services coordinator hours to the ED due to shortness of breath and generalized weakness. Prior to seeing patient at bedside the consultation was placed for the need for hemodialysis as patient missed his last session on Friday due to not feeling well. Patient was given Dilaudid 1.5 mg throughout the night and was found to be obtunded by the primary team with minimal response to sternal rub. The ER physician was informed patient was given Narcan and placed on BiPAP after which patient woke up. His ABG showed a pH of 6.9 and a CO2 of 111 likely secondary from the hypoxemic hypercapnia and hypoventilation due to medication and improved to 7.03 and PCO2 decreased to 78 after Narcan. When I saw the patient at bedside he was arguing with the nurses demanding pain medications as he has had severe low back pain. Patient was a poor historian and was adamant about the pain medication before answering any questions I just managed to get out of him that he missed his dialysis session as he was not feeling well with generalized weakness nausea vomiting as well as right arm pain and swelling of his AV fistula on the right arm. Patient's sodium was 135, potassium 5.4, BUN is 38 creatinine 4.9 and a glucose of 97. Patient also has obesity hypoventilation syndrome. His UA was positive for UTI and cultures were obtained. Nephrology team was consulted for the need of dialysis. Dialysis was ordered and will continue to follow patient closely in collaboration with the primary team. 09/11/24: Patient seen and examined in the ICU. Overnight patient seemed to have worsening hypoxic respiratory failure with increased work of breathing after which patient needed to be intubated. Patient's potassium was elevated this morning at 5.7 BUN was 29 and creatinine was 4.4. Patient will receive hemodialysis today. 09/13/2024: Patient seen and examined in ICU today. There were no major overnight events and patient remains intubated this morning. His electrolytes were stable this morning and his BUN was 31 with a creatinine of 4.5. Patient will undergo hemodialysis today. 09/15/24: Patient seen and examined in ICU. This morning patient seems very somnolent with minimal response to her sternal rub on the BiPAP. ABG was initially acidotic with a pH of 7.1 which subsequently improved to 7.28 after patient received 2 doses of Narcan. Patient's electrolytes were within normal limits aside for a bicarb of 32.3. BUN is 28 today with a creatinine of 4.4. Will plan for patient to undergo dialysis tomorrow. 09/16/24: Patient seen and examined on the floors. Patient awake and alert, complain of difficulty controlling his pain with current pain management. Patient electrolytes normal except for minor hyponatremia, asymptomatic. BUN 35, creatinine 4.9, EGFR 15. Plan for hemodialysis with 1 L fluid removal. Patient continues to complain of pain, states he has an allergy to Ultram which is not recorded. Exam Vital Signs Temp Pulse Resp BP Pulse Ox O2 Del Method O2 Flow Rate 96.8 F 93 15 123/69 92 L Room Air 4 09/16/24 08:00 09/16/24 08:00 09/16/24 08:00 09/16/24 08:00 09/16/24 08:00 09/16/24 08:00 09/15/24 03:32 FiO2 40 09/16/24 02:51 Narrative Exam Constitutional: Obese male, awake CVS: RRR, S1 and S2 present, no murmurs, rubs or gallops . RESP: CTAB, there is bilateral rhonchi and rales with shortness of breath. GI: Normal BS, Nontender/Nondistended. Ileostomy in place. MSK: Full range of motion, No trauma or deformities or masses. AV fistula on the right arm with right arm appearing larger than the left without erythema or discharge Skin: Warm to touch, Dry. No rashes or lesions. No hematomas Neurologic: Alert, paraplegia, no sensitivity after T5 level. Objective Labs 09/17/24 05:45 09/16/24 07:12 Labs: Laboratory Results - last 24 hr 09/15/24 09/16/24 08:30 07:12 WBC 6.9 RBC 3.31 L Hgb 10.1 L Hct 32.5 L MCV 98 MCH 30.5 MCHC 31.1 RDW Std Deviation 53.7 H Plt Count 163 Neut % (Auto) 68 Lymph % (Auto) 13 Granite % (Auto) 13 H Eos % (Auto) 3 Baso % (Auto) 1 Neut # (Auto) 4.7 Lymph # (Auto) 0.9 L Granite # (Auto) 0.9 H Eos # (Auto) 0.2 Baso # (Auto) 0.0 Immature Gran # (Auto) 0.16 H Absolute Nucleated RBC 0.00 Immature Gran % 2 H Nucleated RBC % 0 Puncture Site Left Radial ABG pH 7.28 L ABG pCO2 58 H ABG pO2 240 H ABG HCO3 27 H ABG O2 Saturation 101 H ABG Base Excess -1 FiO2 70 Sodium 132 L Potassium 4.2 D Chloride 99 Carbon Dioxide 25.7 Anion Gap 7 BUN 35 H Creatinine 4.9 H* D Estim Creat Clear Calc 27.9 L eGFR 15 L BUN/Creatinine Ratio 7 L Glucose 124 H Calculated Osmolality 273 L Calcium 8.4 Corrected Calcium 8.8 Phosphorus 3.4 Magnesium 1.6 Total Bilirubin 0.2 L AST 13 ALT 10 Alkaline Phosphatase 172 H Total Protein 6.2 Albumin 3.5 Globulin 2.7 Albumin/Globulin Ratio 1.3 ABG Interpretation ABG results: 09/10/24 09/10/24 09/10/24 09:22 11:05 13:50 ABG pH 6.90 L* 7.03 L* D 7.11 L* ABG pCO2 111 H* 78 H* D 64 H D ABG pO2 83 40 L* D 48 L* ABG HCO3 22 21 21 ABG O2 Saturation 94 67 L 86 L ABG Base Excess -13 L -12 L -10 L VBG pH VBG pCO2 VBG pO2 VBG Base Excess 09/10/24 09/10/24 09/11/24 19:49 21:58 17:57 ABG pH 7.09 L* 7.13 L* ABG pCO2 89 H* D 77 H* D ABG pO2 251 H D 61 L D ABG HCO3 27 H 25 ABG O2 Saturation 100 H 91 ABG Base Excess -5 L -6 L VBG pH 7.41 VBG pCO2 41 VBG pO2 34 VBG Base Excess 1 09/12/24 09/13/24 09/14/24 04:49 04:47 05:48 ABG pH ABG pCO2 ABG pO2 ABG HCO3 ABG O2 Saturation ABG Base Excess VBG pH 7.46 7.30 L 7.29 L VBG pCO2 36 52 D 60 H VBG pO2 39 45 28 VBG Base Excess 2 -2 1 09/15/24 09/15/24 09/15/24 03:56 07:52 08:30 ABG pH 7.28 L ABG pCO2 58 H ABG pO2 240 H ABG HCO3 27 H ABG O2 Saturation 101 H ABG Base Excess -1 VBG pH 7.10 L 7.38 VBG pCO2 98 H D 43 D VBG pO2 37 56 VBG Base Excess -2 0 Quality Measures Quality Measures VTE prophylaxis Assessment & Plan Assessment Current Active Medications: Generic Name Dose Route Start Last Admin Trade Name Freq PRN Reason Stop Dose Admin Acetaminophen 650 mg 09/15/24 18:13 09/16/24 02:52 Acetaminophen 325 Mg Tablet PO 10/15/24 18:12 650 mg Q6HR PRN Administration pain 1-10 Albuterol/Ipratropium 3 ml 09/10/24 14:28 09/10/24 16:28 Albuterol/Ipratropium (Duoneb) Rt Lasha[place] 3 Ml Nebu INH 10/10/24 14:59 3 ml Q4HRRT PRN Administration wheezing Amlodipine Besylate 5 mg 09/15/24 14:00 09/15/24 14:06 Amlodipine Besylate 5 Mg Tablet GT 10/15/24 13:59 5 mg QDAY FOREIGN Administration Cyclobenzaprine HCl 5 mg 09/12/24 14:00 09/14/24 21:22 Cyclobenzaprine 5 Mg Tablet PO 10/12/24 13:59 5 mg TID FOREIGN Administration Epoetin Sandeep 10,000 unit 09/16/24 13:00 Epoetin Sandeep-Epbx Inj 10,000 Unit/Ml Vial (Esrd) SC 09/16/24 13:01 X1 ONE Heparin Sodium (Porcine) 5,000 unit 09/14/24 09:00 09/15/24 20:50 Heparin Sod Inj 5000 Unit/Ml Vial SC 09/28/24 08:59 5,000 unit Q12HR FOREIGN Administration Albumin Human 25 gm in 100 mls @ 100 mls/min 09/10/24 16:17 09/11/24 14:27 Albuminar-25 Ivpb IV 100 mls/min PRN PRN Administration DIALYSIS Levothyroxine Sodium 25 mcg 09/11/24 06:00 09/16/24 05:56 Levothyroxine Sodium 25 Mcg Tablet PO 10/11/24 05:59 25 mcg ACBR FOREIGN Administration Midodrine 10 mg 09/15/24 11:17 Midodrine 5 Mg Tablet PO 10/10/24 23:44 TID PRN SBP less than 100 Ondansetron HCl 4 mg 09/10/24 14:34 Ondansetron Inj 2 Mg/Ml Inj 2 Ml IV 10/10/24 14:44 Q8H PRN nausea vomiting Protocol Pantoprazole Sodium 40 mg 09/11/24 09:00 09/15/24 08:58 Pantoprazole Inj 40 Mg Vial IVP 10/11/24 08:59 40 mg QDAY FOREIGN Administration Sevelamer Carbonate 800 mg 09/14/24 08:00 09/15/24 17:22 Sevelamer Carbonate 800 Mg Tablet PO 10/14/24 07:59 Not Given TIDWM FOREIGN Sodium Bicarbonate 650 mg 09/13/24 21:00 09/15/24 20:51 Sodium Bicarbonate 650 Mg Tablet PO 10/13/24 20:59 650 mg BID FOREIGN Administration Plan 33-year-old male with past medical history of paraplegia, hypertension, ESRD on hemodialysis Friday and Friday, recurrent UTIs, status post tracheostomy and ileostomy admitted due to acute hypoxic respiratory failure. #ESRD on hemodialysis Friday and Friday Patient presented after missing his hemodialysis appointment on Friday and last 1 being a week ago (last Friday) prior to admission Patient's sodium was 135, potassium 5.4 with a BUN of 38 and a creatinine of 4.9 Patient's x-ray showed vascular congestion on admission which has improved with sessions of hemodialysis. ? Hemodialysis today with plan to remove 1 L fluid ? Follow-up with daily CMP ? Electrolyte replacement protocol #Acute hypoxic hypercapnic respiratory failure #UTI #Obesity hypoventilation syndrome #Paraplegia #Hypertension ?As managed by primary team Thank you for allowing us to be part of patient's care during his time in [facility] (Former[facility]) Plan of care discussed with attending Dr. Haines. Ronak Morton MD PGY?1 Attending Provider Attestation/Addendum Patient currently seen and examined with resident physician Dr. Morton. Note reviewed, agree with findings and recommendations. Patient currently seen on dialysis. Tolerating dialysis without any problems. Hemodialysis for 3 hours, 2K, ultrafiltration 1 L, Epogen 6000, no heparin ordered. Plan of care discussed with the dialysis nurse. Please see dialysis flowsheet for further details.
[2024-09-16] MEDS: PANTOPRAZOLE INJ 40 MG VIAL IVP (09:00)
[2024-09-16] MEDS: SEVELAMER CARBONATE 800 MG TABLET PO ×3 (09:00→17:54)
[2024-09-16] MEDS: SODIUM BICARBONATE 650 MG TABLET PO ×2 (09:01→20:58)
[2024-09-16] MEDS: HEPARIN SOD INJ 5000 UNIT/ML VIAL SC ×2 (09:01→20:58)
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
[2024-09-16] MEDS: LIDOCAINE 5% 1 PATCH TOP (12:31)
--- NOTE | 2024-09-16 13:55 | PC.DIETICIAN ---
Nutrition Prescription: 1. Flavored Hal 1 pkt BID daily; after lunch and dinner; mix with 6-8 oz water for targeted nutrition and wound healing, RN to administer as medication 2. RD recommends adding Vitamin C 250mg BID daily, Zinc 220mg [id number], Nephrovite daily to ensure adequate nutrient intake and promote wound healing.
[2024-09-16] MEDS: EPOETIN ALFA INJ 1,000 UNIT/0.05 ML UNIT 10000 UNIT SC (14:08)
--- NOTE | 2024-09-16 17:05 | PC.CC ---
Pt entered into [facility], pt is open to [facility]
[2024-09-16] MEDS: CYCLObenzaPRINE 5 MG TABLET PO (17:53)
[2024-09-17] VITALS (9 sets, daily range): BP systolic 162–174; BP diastolic 93–103; PULSE 68–101; RESP 4–95; TEMP 36.1–36.4; O2SAT 93–100; BMI 31.4
[2024-09-17] MEDS: CYCLObenzaPRINE 5 MG TABLET PO (03:49)
[2024-09-17] MEDS: ACETAMINOPHEN 325 MG TABLET 650 MG PO (03:49)
[2024-09-17] MEDS: LEVOTHYROXINE SODIUM 25 MCG TABLET PO (05:19)
[2024-09-17 06:16] LABS: Basophils % (Auto) 1 % (0-2.5); Eosinophils # (Auto) 0.2 Thou/mm3 (0.0-0.5); Eosinophils % (Auto) 5 % (0-10); Hematocrit 34.1 % (41.0-53.0); Hemoglobin 10.6 g/dL (13.5-16.0); Immature Granulocytes % (Auto) 6 % (0-0); Immature Granulocytes Auto 0.27 Thou/mm3 (0.00-0.00); Lymphocytes % (Auto) 21 % (10-50); Mean Corpuscular HGB Conc 31.1 g/dl (31.0-37.0); Mean Corpuscular Hemoglobin 30.8 pg (25.0-35.0); Mean Corpuscular Volume 99 fL (80-100); Monocytes # (Auto) 0.7 Thou/mm3 (0.0-0.8); Monocytes % (Auto) 16 % (0-12); Neutrophils # (Auto) 2.4 Thou/mm3 (1.8-7.7); Neutrophils % (Auto) 52 % (37-80); Nucleated Red Blood Cell % 0 /100 WBC (0); Platelet Count 161 Thou/mm3 (140-440); RDW Standard Deviation 53.6 fL (35.1-43.9); Red Blood Count 3.44 Miln/mm3 (4.50-5.90); White Blood Count 4.6 Thou/mm3 (3.8-10.6)
[2024-09-17 07:10] LABS: Alanine Aminotransferase 11 U/L (10-49); Albumin, Serum 3.4 gm/dL (3.5-5.0); Albumin/Globulin Ratio 1.3 (1.2-2.2); Alkaline Phosphatase 149 U/L (46-116); Anion Gap 11 (7-16); Aspartate Amino Transferase 21 U/L (0-34); BUN/Creatinine Ratio 6 Ratio (12-20); Bilirubin,Total 0.2 mg/dL (0.3-1.2); Blood Urea Nitrogen 23 mg/dL (9-23); Calcium 8.9 mg/dL (8.3-10.6); Calcium (Corrected) 9.4 mg/dL (8.5-10.1); Carbon Dioxide 25.6 mMol/L (20.0-31.0); Chloride 101 mMol/L (98-107); Estimated Creatinine Clearance 34.2 mL/min (>60); Globulin 2.7 gm/dL (2.3-3.5); Glucose 143 mg/dL (74-106); Magnesium 1.5 mg/dL (1.6-2.6); Osmolality,Calculated 281 (275-295); Phosphorous 3.4 mg/dL (2.4-5.1); Potassium 4.7 mMol/L (3.4-5.1); Sodium 138 mMol/L (136-145); Total Protein 6.1 gm/dL (5.7-8.2); eGFR 19 See Note
[2024-09-17] MEDS: SEVELAMER CARBONATE 800 MG TABLET PO ×2 (08:16→11:19)
[2024-09-17] MEDS: PANTOPRAZOLE INJ 40 MG VIAL IVP (08:16)
[2024-09-17] MEDS: SODIUM BICARBONATE 650 MG TABLET PO (08:16)
[2024-09-17] MEDS: amLODIPine BESYLATE 5 MG TABLET GT (08:16)
--- NOTE | 2024-09-17 08:47 | PC.NURSE ---
Report given to PRINCIPAL DATA ARCHITECTKENIA Farris.
--- NOTE | 2024-09-17 08:57 | ESPR_ITS ---
Documentation for date of: 09/17/24 Subjective Subjective Interval history: Mr. Matson is a 33-year-old male with past medical history of paraplegia, hypertension, ESRD on hemodialysis Friday and Friday(under Dr. 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 Prior to seeing patient at bedside the consultation was placed for the need for hemodialysis as patient missed his last session on Friday due to not feeling well. Patient was given Dilaudid 1.5 mg throughout the night and was found to be obtunded by the primary team with minimal response to sternal rub. The ER physician was informed patient was given Narcan and placed on BiPAP after which patient woke up. His ABG showed a pH of 6.9 and a CO2 of 111 likely secondary from the hypoxemic hypercapnia and hypoventilation due to medication and improved to 7.03 and PCO2 decreased to 78 after Narcan. When I saw the patient at bedside he was arguing with the nurses demanding pain medications as he has had severe low back pain. Patient was a poor historian and was adamant about the pain medication before answering any questions I just managed to get out of him that he missed his dialysis session as he was not feeling well with generalized weakness nausea vomiting as well as right arm pain and swelling of his AV fistula on the right arm. Patient's sodium was 135, potassium 5.4, BUN is 38 creatinine 4.9 and a glucose of 97. Patient also has obesity hypoventilation syndrome. His UA was positive for UTI and cultures were obtained. Nephrology team was consulted for the need of dialysis. Dialysis was ordered and will continue to follow patient closely in collaboration with the primary team. 09/11/24: Patient seen and examined in the ICU. Overnight patient seemed to have worsening hypoxic respiratory failure with increased work of breathing after which patient needed to be intubated. Patient's potassium was elevated this morning at 5.7 BUN was 29 and creatinine was 4.4. Patient will receive hemodialysis today. 09/13/2024: Patient seen and examined in ICU today. There were no major overnight events and patient remains intubated this morning. His electrolytes were stable this morning and his BUN was 31 with a creatinine of 4.5. Patient will undergo hemodialysis today. 09/15/24: Patient seen and examined in ICU. This morning patient seems very somnolent with minimal response to her sternal rub on the BiPAP. ABG was initially acidotic with a pH of 7.1 which subsequently improved to 7.28 after patient received 2 doses of Narcan. Patient's electrolytes were within normal limits aside for a bicarb of 32.3. BUN is 28 today with a creatinine of 4.4. Will plan for patient to undergo dialysis tomorrow. 09/16/24: Patient seen and examined on the floors. Patient awake and alert, complain of difficulty controlling his pain with current pain management. Patient electrolytes normal except for minor hyponatremia, asymptomatic. BUN 35, creatinine 4.9, EGFR 15. Plan for hemodialysis with 1 L fluid removal. Patient continues to complain of pain, states he has an allergy to Ultram which is not recorded. 09/17/24: Patient seen examined on the floors. Patient awake alert, complaining about current management especially regarding his pain. Patient electrolytes normal. BUN 23, creatinine 4.0, EGFR 19. No plans for hemodialysis today. Discussed case with primary team, they are attempting slow reintroduction of pain management medications. Patient is cleared for discharge from nephrology perspective. If patient remains in hospital, will continue to provide dialysis as scheduled. Exam Vital Signs Temp Pulse Resp BP Pulse Ox O2 Del Method O2 Flow Rate 97.6 F 98 20 162/103 H 93 L Room Air 4 09/17/24 08:00 09/17/24 08:16 09/17/24 08:00 09/17/24 08:16 09/17/24 08:00 09/17/24 08:00 09/15/24 03:32 FiO2 40 09/17/24 03:37 Narrative Exam Constitutional: Obese male, awake, irritable CVS: RRR, S1 and S2 present, no murmurs, rubs or gallops . RESP: CTAB, there is bilateral rhonchi and rales with shortness of breath. GI: Normal BS, Nontender/Nondistended. Ileostomy in place. MSK: Full range of motion, No trauma or deformities or masses. AV fistula on the right arm with right arm appearing larger than the left without erythema or discharge Skin: Warm to touch, Dry. No rashes or lesions. No hematomas Neurologic: Alert, paraplegia, no sensitivity after T5 level. Objective Labs 09/17/24 05:45 09/17/24 05:45 Labs: Laboratory Results - last 24 hr 09/16/24 09/17/24 07:12 05:45 WBC 4.6 RBC 3.44 L Hgb 10.6 L Hct 34.1 L MCV 99 MCH 30.8 MCHC 31.1 RDW Std Deviation 53.6 H Plt Count 161 Neut % (Auto) 52 Lymph % (Auto) 21 [place] % (Auto) 16 H Eos % (Auto) 5 Baso % (Auto) 1 Neut # (Auto) 2.4 Lymph # (Auto) 1.0 [place] # (Auto) 0.7 Eos # (Auto) 0.2 Baso # (Auto) 0.0 Immature Gran # (Auto) 0.27 H Absolute Nucleated RBC 0.00 Immature Gran % 6 H Nucleated RBC % 0 Sodium Cancelled 138 Potassium Cancelled 4.7 D Chloride Cancelled 101 Carbon Dioxide Cancelled 25.6 Anion Gap Cancelled 11 BUN Cancelled 23 Creatinine Cancelled 4.0 H D Estim Creat Clear Calc Cancelled 34.2 L eGFR Cancelled 19 L BUN/Creatinine Ratio Cancelled 6 L Glucose Cancelled 143 H Calculated Osmolality Cancelled 281 Calcium Cancelled 8.9 Corrected Calcium Cancelled 9.4 Phosphorus 3.4 Magnesium 1.5 L Total Bilirubin Cancelled 0.2 L AST Cancelled 21 ALT Cancelled 11 Alkaline Phosphatase Cancelled 149 H D Total Protein Cancelled 6.1 Albumin Cancelled 3.4 L Globulin Cancelled 2.7 Albumin/Globulin Ratio Cancelled 1.3 ABG Interpretation ABG results: 09/10/24 09/10/24 09/10/24 09:22 11:05 13:50 ABG pH 6.90 L* 7.03 L* D 7.11 L* ABG pCO2 111 H* 78 H* D 64 H D ABG pO2 83 40 L* D 48 L* ABG HCO3 22 21 21 ABG O2 Saturation 94 67 L 86 L ABG Base Excess -13 L -12 L -10 L VBG pH VBG pCO2 VBG pO2 VBG Base Excess 09/10/24 09/10/24 09/11/24 19:49 21:58 17:57 ABG pH 7.09 L* 7.13 L* ABG pCO2 89 H* D 77 H* D ABG pO2 251 H D 61 L D ABG HCO3 27 H 25 ABG O2 Saturation 100 H 91 ABG Base Excess -5 L -6 L VBG pH 7.41 VBG pCO2 41 VBG pO2 34 VBG Base Excess 1 09/12/24 09/13/24 09/14/24 04:49 04:47 05:48 ABG pH ABG pCO2 ABG pO2 ABG HCO3 ABG O2 Saturation ABG Base Excess VBG pH 7.46 7.30 L 7.29 L VBG pCO2 36 52 D 60 H VBG pO2 39 45 28 VBG Base Excess 2 -2 1 09/15/24 09/15/24 09/15/24 03:56 07:52 08:30 ABG pH 7.28 L ABG pCO2 58 H ABG pO2 240 H ABG HCO3 27 H ABG O2 Saturation 101 H ABG Base Excess -1 VBG pH 7.10 L 7.38 VBG pCO2 98 H D 43 D VBG pO2 37 56 VBG Base Excess -2 0 Quality Measures Quality Measures VTE prophylaxis Assessment & Plan Assessment Current Active Medications: Generic Name Dose Route Start Last Admin Trade Name Freq PRN Reason Stop Dose Admin Acetaminophen 650 mg 09/15/24 18:13 09/17/24 03:49 Acetaminophen 325 Mg Tablet PO 10/15/24 18:12 650 mg Q6HR PRN Administration pain 1-10 Albuterol/Ipratropium 3 ml 09/10/24 14:28 09/10/24 16:28 Albuterol/Ipratropium (Duoneb) Rt Lashaun 3 Ml Nebu INH 10/10/24 14:59 3 ml Q4HRRT PRN Administration wheezing Amlodipine Besylate 5 mg 09/15/24 14:00 09/17/24 08:16 Amlodipine Besylate 5 Mg Tablet GT 10/15/24 13:59 5 mg QDAY FOREIGN Administration Cyclobenzaprine HCl 5 mg 09/16/24 14:16 09/17/24 03:49 Cyclobenzaprine 5 Mg Tablet PO 10/12/24 13:59 5 mg TID PRN Administration Muscle Spasms Heparin Sodium (Porcine) 5,000 unit 09/14/24 09:00 09/17/24 08:18 Heparin Sod Inj 5000 Unit/Ml Vial SC 09/28/24 08:59 Not Given Q12HR FOREIGN Albumin Human 25 gm in 100 mls @ 100 mls/min 09/10/24 16:17 09/11/24 14:27 Albuminar-25 Ivpb IV 100 mls/min PRN PRN Administration DIALYSIS Levothyroxine Sodium 25 mcg 09/11/24 06:00 09/17/24 05:19 Levothyroxine Sodium 25 Mcg Tablet PO 10/11/24 05:59 25 mcg ACBR FOREIGN Administration Lidocaine 1 patch 09/16/24 10:31 09/16/24 12:31 Lidocaine 5% 1 Patch TOP 10/16/24 10:30 1 patch DAILY PRN Administration LOCALIZED PAIN Midodrine 10 mg 09/15/24 11:17 Midodrine 5 Mg Tablet PO 10/10/24 23:44 TID PRN SBP less than 100 Ondansetron HCl 4 mg 09/10/24 14:34 Ondansetron Inj 2 Mg/Ml Inj 2 Ml IV 10/10/24 14:44 Q8H PRN nausea vomiting Protocol Pantoprazole Sodium 40 mg 09/11/24 09:00 09/17/24 08:16 Pantoprazole Inj 40 Mg Vial IVP 10/11/24 08:59 40 mg QDAY FOREIGN Administration Sevelamer Carbonate 800 mg 09/14/24 08:00 09/17/24 08:16 Sevelamer Carbonate 800 Mg Tablet PO 10/14/24 07:59 800 mg TIDWM FOREIGN Administration Sodium Bicarbonate 650 mg 09/13/24 21:00 09/17/24 08:16 Sodium Bicarbonate 650 Mg Tablet PO 10/13/24 20:59 650 mg BID FOREIGN Administration Plan 33-year-old male with past medical history of paraplegia, hypertension, ESRD on hemodialysis Friday and Friday, recurrent UTIs, status post tracheostomy and ileostomy admitted due to acute hypoxic respiratory failure. #ESRD on hemodialysis Friday and Friday Patient presented after missing his hemodialysis appointment on Friday and last 1 being a week ago (last Friday) prior to admission Patient's sodium was 135, potassium 5.4 with a BUN of 38 and a creatinine of 4.9 Patient's x-ray showed vascular congestion on admission which has improved with sessions of hemodialysis. Rcommending three times weekly (//Fri) hemodialysis from now on. ? Hemodialysis on Friday, , Friday schedule ? Follow-up with daily CMP ? Electrolyte replacement protocol #Acute hypoxic hypercapnic respiratory failure #UTI #Obesity hypoventilation syndrome #Paraplegia #Hypertension ?As managed by primary team Thank you for allowing us to be part of patient's care during his time in [facility] Plan of care discussed with attending Dr. Haines. Ronak Morton MD PGY?1 Attending Provider Attestation/Addendum Patient currently seen and examined with resident physician Dr. Morton. Note reviewed, agree with findings and recommendations. Patient currently seen in medical floor. Demanding to get pain medications and wants to go home if not given. Renal emmanuel stable for discharge.
--- NOTE | 2024-09-17 08:59 | PC.SS ---
Addendum entered by Nemo Kessler 09/17/24 10:12: SS was informed pt is requiring transportation information. provided [employer] with [employer] phone# for transportation. Original Note: Follow up note: SS spoke to RnIsaías pt is requiring updated O2 testing for home O2, per Luisa's request. SS has informed [facility] [place] pt will be d/c home today.
--- NOTE | 2024-09-17 09:18 | PD.IDPROG ---
Subjective Subjective Interval history: off abx. on floor. labs as noted. Exam Vital Signs Temp Pulse Resp BP Pulse Ox O2 Del Method O2 Flow Rate 97.6 F 98 20 162/103 H 93 L Room Air 4 09/17/24 08:00 09/17/24 08:16 09/17/24 08:00 09/17/24 08:16 09/17/24 08:00 09/17/24 08:00 09/15/24 03:32 FiO2 40 09/17/24 03:37 Narrative Exam limited review Objective - Internal Medicine Labs 09/17/24 05:45 09/17/24 05:45 Labs: Laboratory Results - last 24 hr 09/16/24 09/17/24 07:12 05:45 WBC 4.6 RBC 3.44 L Hgb 10.6 L Hct 34.1 L MCV 99 MCH 30.8 MCHC 31.1 RDW Std Deviation 53.6 H Plt Count 161 Neut % (Auto) 52 Lymph % (Auto) 21 [place] % (Auto) 16 H Eos % (Auto) 5 Baso % (Auto) 1 Neut # (Auto) 2.4 Lymph # (Auto) 1.0 [place] # (Auto) 0.7 Eos # (Auto) 0.2 Baso # (Auto) 0.0 Immature Gran # (Auto) 0.27 H Absolute Nucleated RBC 0.00 Immature Gran % 6 H Nucleated RBC % 0 Sodium Cancelled 138 Potassium Cancelled 4.7 D Chloride Cancelled 101 Carbon Dioxide Cancelled 25.6 Anion Gap Cancelled 11 BUN Cancelled 23 Creatinine Cancelled 4.0 H D Estim Creat Clear Calc Cancelled 34.2 L eGFR Cancelled 19 L BUN/Creatinine Ratio Cancelled 6 L Glucose Cancelled 143 H Calculated Osmolality Cancelled 281 Calcium Cancelled 8.9 Corrected Calcium Cancelled 9.4 Phosphorus 3.4 Magnesium 1.5 L Total Bilirubin Cancelled 0.2 L AST Cancelled 21 ALT Cancelled 11 Alkaline Phosphatase Cancelled 149 H D Total Protein Cancelled 6.1 Albumin Cancelled 3.4 L Globulin Cancelled 2.7 Albumin/Globulin Ratio Cancelled 1.3 ABG Interpretation ABG results: 09/10/24 09/10/24 09/10/24 09:22 11:05 13:50 ABG pH 6.90 L* 7.03 L* D 7.11 L* ABG pCO2 111 H* 78 H* D 64 H D ABG pO2 83 40 L* D 48 L* ABG HCO3 22 21 21 ABG O2 Saturation 94 67 L 86 L ABG Base Excess -13 L -12 L -10 L VBG pH VBG pCO2 VBG pO2 VBG Base Excess 09/10/24 09/10/24 09/11/24 19:49 21:58 17:57 ABG pH 7.09 L* 7.13 L* ABG pCO2 89 H* D 77 H* D ABG pO2 251 H D 61 L D ABG HCO3 27 H 25 ABG O2 Saturation 100 H 91 ABG Base Excess -5 L -6 L VBG pH 7.41 VBG pCO2 41 VBG pO2 34 VBG Base Excess 1 09/12/24 09/13/24 09/14/24 04:49 04:47 05:48 ABG pH ABG pCO2 ABG pO2 ABG HCO3 ABG O2 Saturation ABG Base Excess VBG pH 7.46 7.30 L 7.29 L VBG pCO2 36 52 D 60 H VBG pO2 39 45 28 VBG Base Excess 2 -2 1 09/15/24 09/15/24 09/15/24 03:56 07:52 08:30 ABG pH 7.28 L ABG pCO2 58 H ABG pO2 240 H ABG HCO3 27 H ABG O2 Saturation 101 H ABG Base Excess -1 VBG pH 7.10 L 7.38 VBG pCO2 98 H D 43 D VBG pO2 37 56 VBG Base Excess -2 0 Assessment & Plan A&P Narrative esbl in urine from 09/10. likely asb as no urinary sx and no bacteremia paraplegia ckd 5 on hd. resp failure, resolved. here primarily for resp sx current rx is microbiolocally ok but may be overkill clinically. he is only 33, but has been this way since age 13, so may want more rx, sadly, the more we treat him with abx, the more R the germs will get will change merrem to fosfomycin 3 gm once on fri. will see again prn Time Spent With Patient Time: Total time spent is greater than 50% in coordination of care (as documented) at patient's floor/unit and/or counseling patient:
--- NOTE | 2024-09-17 09:20 | XR_ITS ---
Examination: Retroperitoneal ultrasound, complete Technique: Multiple high resolution grayscale images of the retroperitoneum obtained, including kidneys and bladder. Exam date and time:September 17, 2024 0953 hours INDICATIONS: History pyuria kidney stones chronic kidney disease intermittent episodes 20 years FINDINGS: Right kidney 11.8 cm renal cortex 1.9 cm Multiple renal calculi, the largest 15 mm Left kidney 7.2 cm cortex 0.8 cm Multiple calculi, largest 12 mm Mild to moderate bilateral renal parenchymal scar formation Bladder contracted IMPRESSION: Small left kidney with left renal cortical thinning Numerous bilateral renal calculi Mild to moderate bilateral renal parenchymal scar formation
[2024-09-17] MEDS: KETOROLAC INJ 30 MG/ML VIAL 15 MG IVP (10:11)
--- NOTE | 2024-09-17 10:36 | PC.NURSE ---
Patient O2 98% on RA at rest. Patient unable to ambulate due to paraplegia. Performed exercises in bed patient O2 86% on RA.
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
[2024-09-17] MEDS: GABAPENTIN 100 MG CAPSULE PO (11:17)
--- NOTE | 2024-09-17 12:36 | PC.SS ---
SS met with pt to inform him Luisa will be delivering home O2 to bedside. Pt refused for SS to setup transportation with [employer]. Pt states his brother will provide transportation. Pt states he is not waiting for more than 1 hour for transportation and [employer]'s transportation is later. SS provided pt with [employer].
--- NOTE | 2024-09-17 13:58 | PC.NURSE ---
spoke to Dr. Zarco and informed him pt's BP 174/98, HR 91. Dr. Zarco stated he put in an order for Nifedipine and once given, recheck BP in 1 hour.
[2024-09-17] MEDS: NIFEdipine XL 30 MG TABCR 60 MG PO (13:59)
--- NOTE | 2024-09-17 14:55 | PC.SS ---
SS and physician resident, Dr. Gilman met with pt and SS offered to setup transportation. Pt refused transportation again stating his brother was going to flower picker the O2 concentrator and bring is his power wheelchair. Pt states he does not require transportation.
--- NOTE | 2024-09-17 16:00 | PC.NURSE ---
RN called Dr. Zarco regarding BP 162/93 HR 90 piror to discharging patient. MD advised RN to call Dr. June. RN called Dr. June regarding BP, okay to discharge.
--- NOTE | 2024-09-18 13:22 | PC.CC ---
Addendum entered by Lan Sykes RN 09/18/24 14:30: [facility] accepted the pt. Booked [facility]. Start of care date is 09/20/24. Original Note: HH referral sent on [facility]. Awaiting responses. Pending start of care date.
== END 2024-09-17 15:34 | disposition home or self-care (01) | DRG 917 ==
LOC: SERX 11:03 → SERHOLD 14:44 → S2SX 18:23 → S3NX 09-13 23:22 → S2SX 09-15 04:57 → S3NX 09-15 23:14
PROVIDERS: Emergency Medicine; Internal Medicine; Student in an Organized Health Care Education/Training Program; Admitting Provider Internal Medicine; Emergency Provider Emergency Medicine; PCP Family Medicine; Visit Provider Student in an Organized Health Care Education/Training Program
DX: T40.411A Poisoning by fentanyl or fentanyl analogs, accidental (unintentional), initial encounter (principal); J69.0 Pneumonitis due to inhalation of food and vomit; J96.01 Acute respiratory failure with hypoxia; J96.02 Acute respiratory failure with hypercapnia; N18.6 End stage renal disease; J96.21 Acute and chronic respiratory failure with hypoxia; J96.22 Acute and chronic respiratory failure with hypercapnia; G82.20 Paraplegia, unspecified; I12.0 Hypertensive chronic kidney disease with stage 5 chronic kidney disease or end stage renal disease; E66.2 Morbid (severe) obesity with alveolar hypoventilation; N39.0 Urinary tract infection, site not specified; E87.29 Other acidosis; G93.40 Encephalopathy, unspecified; I16.1 Hypertensive emergency; Z16.12 Extended spectrum beta lactamase (ESBL) resistance; Z93.2 Ileostomy status; E87.70 Fluid overload, unspecified; F17.210 Nicotine dependence, cigarettes, uncomplicated; E03.9 Hypothyroidism, unspecified; D63.1 Anemia in chronic kidney disease; G89.29 Other chronic pain; M54.9 Dorsalgia, unspecified; L89.151 Pressure ulcer of sacral region, stage 1; B96.1 Klebsiella pneumoniae [K. pneumoniae] as the cause of diseases classified elsewhere; D53.9 Nutritional anemia, unspecified; E87.5 Hyperkalemia; E87.6 Hypokalemia; G47.10 Hypersomnia, unspecified; I95.89 Other hypotension; N20.0 Calculus of kidney; G93.89 Other specified disorders of brain; Z79.899 Other long term (current) drug therapy; Z56.0 Unemployment, unspecified; Z87.01 Personal history of pneumonia (recurrent); Z87.440 Personal history of urinary (tract) infections; Z87.442 Personal history of urinary calculi; Z99.2 Dependence on renal dialysis; Z93.3 Colostomy status; Z91.199 Patient's noncompliance with other medical treatment and regimen due to unspecified reason; Z88.0 Allergy status to penicillin; Z88.8 Allergy status to other drugs, medicaments and biological substances
CPT/HCPCS: 36415; 36600; 71045; 76770; 80053; 80074; 80202; 81001; 82803; 83605; 83735; 84100; 84145; 84484; 85025; 85610; 85730; 86706; 87040; 87077; 87081; 87086; 87186; 87205; 92610; 93005; 93225; 94002; 94003; 94640; 94660; 94667; 99285; A9270; J0360; J0696; J1171; J1644; J1885; J2185; J2310; J2405; J2470; J2704; J3010; J3370; J3490; J7030; J7040; J7050; J7060; P9047; Q4081

== ENCOUNTER 2024-10-30 11:31 | Emergency (ER) | payer MEDICARE, MEDICAID, SELFPAY ==
[2024-10-30] VITALS (9 sets, daily range): BP systolic 106–156; BP diastolic 72–82; PULSE 90–149; RESP 14–96; TEMP 36.1–38.6; O2SAT 98–100; BMI 31.2
--- NOTE | 2024-10-30 12:04 | EKG_ITS ---
[facility] Test Date: 2024-10-30 Pat Name: KENNEDY LEDEZMA Department: Room: - Gender: Male Compensation Agent: : [id number] Requested By: Sylvester Cotton Order Number: [id number] Reading MD: Sylvester Cotton Measurements Intervals [place] Rate: 148 P: 71 TN: 150 QRS: 255 QRSD: 93 T: 68 QT: 277 QTc: 435 Interpretive Statements SINUS TACHYCARDIA, POSSIBLE ATRIAL FLUTTER POSSIBLE ANTERIOR MYOCARDIAL INFARCTION , PROBABLY OLD [30 ms Q WAVE IN V3/V4, OR R < 0.2 mV IN V4] Compared to ECG 09/10/2024 05:47:29 Myocardial infarct finding now present /store/S0/[id number]/ecg/[id number].pdf
--- NOTE | 2024-10-30 12:04 | XR_ITS ---
Examination: AP chest single view Technique: AP portable chest single view Date and time: 10/30/2024 109 pm Findings: No lobar pneumonia or pulmonary edema Mild enlargement cardiac contour Impression: No lobar pneumonia
--- NOTE | 2024-10-30 12:06 | PD.EDMALE ---
ED Male Genitalurinary RME/HPI General Chief complaint: Urogenital-Male Stated complaint: CHILLS Time Seen by Provider: 10/30/24 11:33 Arrival date/time: 10/30/24 11:31 RME / HPI RME / HPI Narrative: 33-year-old male patient with significant history of paraplegia, chronic Richardson catheter, ileostomy, came in for evaluation by EMS for regarding chills and fever. Has been having chills and fever for the last 2 days, associated with nonproductive cough. Patient denies any abdominal pain. Patient denies any other complaints. Patient last Richardson catheter change was 2 weeks ago. He had a chronic pressure ulcer on the left buttock for several weeks now. No medication was taken prior to arrival. Related Data Home Medications ?Medication ?Instructions ?Recorded ?Confirmed gabapentin 600 mg tablet 600 mg PO TID 03/29/19 04/11/24 cholestyramine (with sugar) 4 gram 1 ea PO BID 08/24/20 06/05/24 powder for susp in a packet levothyroxine 25 mcg tablet 25 mcg PO QDAY 08/24/20 04/11/24 magnesium oxide 400 mg PO BID 08/24/20 04/14/24 sevelamer carbonate 800 mg tablet 2,400 mg PO TIDWMEAL 08/24/20 06/05/24 cinacalcet 30 mg tablet 30 mg PO QDAY 07/10/22 04/14/24 midodrine 10 mg tablet 10 mg PO TID PRN Hypotension 07/10/22 06/05/24 omeprazole 40 mg capsule,delayed 40 mg PO QDAY 07/10/22 04/14/24 release hydrocodone 10 mg-acetaminophen 1 tab PO Q6H PRN Pain (Scale Score 12/26/22 04/11/24 325 mg tablet 7-10) Held on 09/17/24. Instructions: Hold until pain management sodium bicarbonate 650 mg tablet 650 mg PO BID 12/26/22 04/14/24 cyclobenzaprine 5 mg tablet 5 mg PO Q8HR PRN Muscle Spasm 01/19/24 06/05/24 sodium zirconium cyclosilicate 10 10 g PO 06/05/24 gram oral powder packet (Lokelma) Previous Rx's ?Medication ?Instructions ?Recorded dextromethorphan-guaifenesin 30 1 tab PO BID PRN Cough #10 tabs 01/23/24 mg-600 mg tablet extended [id number] hr (Mucinex DM) furosemide 40 mg tablet 40 mg PO QDAY #2 tabs 04/15/24 balsam zohreh-castor oil topical 1 applic top BID #60 grams 06/06/24 ointment (Venelex topical ointment) lidocaine 5 % topical patch 1 patch topical QDAY #30 ea 06/06/24 cefdinir 300 mg capsule 300 mg PO QDAY #3 caps 07/19/24 naloxone 4 mg/actuation nasal 4 mg intranasal Q2M PRN opioid 09/17/24 spray (Narcan) overdose #2 ea levofloxacin 750 mg tablet 750 mg PO Q24H 7 days #7 tabs 10/30/24 Allergies Allergy/AdvReac Type Severity Reaction Status Date / Time piperacillin (From Zosyn) Allergy Severe Anaphylaxis Verified 10/30/24 11:54 tazobactam (From Zosyn) Allergy Severe Anaphylaxis Verified 10/30/24 11:54 LIZY Inhibitors Allergy Verified 10/30/24 11:54 Penicillins Allergy Anaphylaxis Verified 10/30/24 11:54 Review of Systems Review of Systems Narrative Review of Systems: Review of system reviewed and within normal limits except mentioned in HPI ED Exam Narrative Physical exam: VITAL SIGNS: Reviewed. GENERAL APPEARANCE: Alert and interactive, follows commands, no acute distress, HEAD AND FACE: Non-traumatic. ENT: PERRL, pink conjunctivitis, eyelid no trauma, Mucous membrane moist. NECK: Supple, nontender, no nuchal rigidity. CHEST: No tenderness, no crepitus, no paradoxical movement, no retractions. LUNGS: Clear, well ventilated, symmetric, no rales, no wheezing, no ronchi, no stridor, good breath sounds bilaterally. HEART: Regular rate, regular rhythm, no murmur, no gallops. ABDOMEN: Soft, positive bowel sounds, nondistended, no guarding, nontender, no rebound, no masses,+ right lower ileostomy, G-tube intact, RECTAL: Deferred. GENITAL: Deferred. NEUROLOGICAL: Gross motor function intact sensory function intact, Appropriate for age. MUSCULOSKELETAL: low back nontender, full range of motion. EXTREMITIES: Nontender, full range of motion bilateral upper extremity, no motor movement bilateral lower extremity SKIN: Color pink, dry, no rash, no lacerations, no abrasions, no contusions. LYMPHATICS: Deferred. Course Quality Measures none Orders Category Date Time Status Health Services Coordinator STAT Care 10/30/24 12:04 Active Continuous Pulse Oximetry STAT Care 10/30/24 12:04 Completed EKG (ED ONLY) *Do not use* NOW Care 10/30/24 12:04 Completed Richardson [Urinary Catheter, Remove] ONCE Care 10/30/24 13:33 Active Richardson [Urinary Catheter] QS Care 10/30/24 13:33 Active In and Out Catheter X1PRN Care 10/30/24 12:04 Active Insert IV NOW Care 10/30/24 12:04 Active NPO STAT Care 10/30/24 12:04 Active Strict Intake and Output Routine Care 10/30/24 12:04 Ordered EKG (ED Only) Stat Exams 10/30/24 12:04 Draft XR chest 1V SEPSIS PROTOCOL Stat Exams 10/30/24 12:04 Completed B-Type Natriuretic Peptide Stat Lab 10/30/24 12:25 Completed Blood Culture (Lab) Stat Lab 10/30/24 12:30 Received CBC Stat Lab 10/30/24 12:25 Completed Comprehensive Metabolic Panel Stat Lab 10/30/24 12:25 Completed LDH (Lactate Dehydrogenase) Stat Lab 10/30/24 12:25 Completed Lactate (Lactic Acid) Stat Lab 10/30/24 12:25 Completed Lactic Acid, 3 HR Stat Lab 10/30/24 16:35 Received Lipase Stat Lab 10/30/24 12:25 Completed Magnesium Stat Lab 10/30/24 12:25 Completed Partial Thromboplastin Time Stat Lab 10/30/24 12:25 Completed Phosphorous Stat Lab 10/30/24 12:25 Completed Procalcitonin Stat Lab 10/30/24 12:25 Completed Prothrombin Time with INR Stat Lab 10/30/24 12:25 Completed Troponin I Stat Lab 10/30/24 12:25 Completed Urinalysis Stat Lab 10/30/24 15:18 Completed Urine Culture Stat Lab 10/30/24 12:04 Ordered HYDROcodone/APAP 10/325 [[place] 10/325] Med 10/30/24 12:04 Discontinued 1 tab PO X1 ONE Ibuprofen Tab [Motrin Tab] Med 10/30/24 12:04 Discontinued 800 mg PO X1 ONE Levofloxacin/D5w 750Mg Ivpb [Levaquin Ivpb] Med 10/30/24 12:05 Discontinued 750 mg in 150 ml IV X1 Ringers Lactated 1000 ml [Lactated Ringers] 1,000 ml Med 10/30/24 12:05 Discontinued IV 999 mls/hr Oxygen Delivery NOW RT 10/30/24 12:04 Active Vital Signs Vital signs: Vital Signs Temperature 98.3 F 10/30/24 11:41 Pulse Rate 91 10/30/24 11:41 Respiratory Rate 19 10/30/24 11:41 Blood Pressure 156/75 H 10/30/24 11:41 Pulse Oximetry (%) 98 10/30/24 11:41 Oxygen Delivery Method Room Air 10/30/24 11:41 Urogenital - Male MDM Narrative MDM Narrative:: 33-year-old male patient with significant history of paraplegia, chronic Richardson catheter, ileostomy, came in for evaluation by EMS for regarding chills and fever. Has been having chills and fever for the last 2 days, associated with nonproductive cough. Patient denies any abdominal pain. Patient denies any other complaints. Patient last Richardson catheter change was 2 weeks ago. He had a chronic pressure ulcer on the left buttock for several weeks now. No medication was taken prior to arrival. EKG as interpreted by me shows sinus tachycardia, ventricular rate of 148 bpm, no ST segment elevation depression noted. Prior to discharge patient heart rate was noted to be 105. Laboratory workup is significant for slight leukocytosis of 13.8 urinalysis positive for UTI sodium 129 creatinine 4.5 potassium is normal patient is a hemodialysis patient. Patient was given IV fluids, IV Zosyn, [place] and Motrin. I discussed the case with Dr. Haines who told me that patient can wait for hemodialysis Friday. Patient data External records reviewed:: None Clinical information provided by:: patient Social determinants that could affect healthcare access:: none Patient has the following chronic illnesses:: Paraplegia, ESRD on hemodialysis How is presenting disease/condition affected by chronic disease/condition?: exacerbated by Evaluation data The following diagnostics were reviewed and interpreted by me:: lab results, radiology exam(s) and EKG tracing(s) Lab and/or radiology exams considered but not ordered:: None Interpretation Summary: Chest x-ray came back unremarkable. Medications / Prescriptions Medications or Prescriptions considered but not ordered:: None Medication administrations:: Medication Administration History Discontinued Medications Hydrocodone Bitart/Acetaminophen (Hydrocodone/Apap 10/325 Tab) 1 tab PO X1 ONE Stop: 10/30/24 12:05 Last Admin: 10/30/24 13:21 Dose: 1 tab Documented By: GM Lactated Ringer's (Lactated Ringers) 1,000 mls @ 999 mls/hr IV .Q1H1M ONE Stop: 10/30/24 13:05 Last Infusion: 10/30/24 14:35 Dose: Infused Documented By: Admin: 10/30/24 13:29 Dose: 999 mls/hr Documented By: Levofloxacin/Dextrose (Levaquin Ivpb) 750 mg in 150 mls @ 100 mls/hr IV X1 ONE Stop: 10/30/24 13:34 Last Infusion: 10/30/24 15:05 Dose: Infused Documented By: Admin: 10/30/24 13:29 Dose: 100 mls/hr Documented By: GM Ibuprofen (Ibuprofen Tab 400 Mg Tablet) 800 mg PO X1 ONE Stop: 10/30/24 12:05 Last Admin: 10/30/24 13:20 Dose: 800 mg Documented By: IV fluids IV Levaquin, [place] and Motrin Consultations Consultation(s) initiated? (list below): Yes Consultation #1 (Physician, Specialty, Details): Dr. Haines discussed the case thank you Diagnosis Urogenital Male Differential Diagnosis: urinary tract infection and other (Sepsis, fever,) Most likely diagnosis given after review of the tests above:: UTI Admission Indicated Admission indicated?: not indicated Admission Request Was there a request for admission?: No Disposition Plan Disposition Plan: Discharge Discharge Attestation Discharge Attestation: The patient was given an opportunity to ask questions and understood the discharge instructions. Discharge instructions specifically effects, indications for sooner follow up or return to the emergency department, and the expected course of current diagnosis. Patient condition: Stable Discharge Plan Plan Patient Disposition: HOME (Self Care) Discharge Disposition comment: stable Prescriptions/Referrals Prescriptions/Med Rec: New levofloxacin 750 mg tablet 750 mg PO Q24H 7 Days Qty: 7 0RF No Action sevelamer carbonate 800 mg Tablet 2,400 mg PO TIDWMEAL magnesium oxide 400 mg magnesium Capsule 400 mg PO BID levothyroxine 25 mcg Tablet 25 mcg PO QDAY cholestyramine (with sugar) 4 gram Powder In Packet 1 ea PO BID gabapentin 600 mg Tablet 600 mg PO TID omeprazole 40 mg capsule,delayed release(DR/EC) 40 mg PO QDAY Patient Comments: TAKE ONE CAPSULE BY MOUTH EVERY DAY midodrine 10 mg tablet 10 mg PO TID PRN (Reason: Hypotension) cinacalcet 30 mg tablet 30 mg PO QDAY Patient Comments: TAKE ONE TABLET BY MOUTH EVERY DAY hydrocodone-acetaminophen 10-325 mg tablet 1 tab PO Q6H PRN (Reason: Pain (Scale Score 7-10)) sodium bicarbonate 650 mg tablet 650 mg PO BID Patient Comments: TAKE ONE TABLET BY MOUTH TWICE DAILY cyclobenzaprine 5 mg tablet 5 mg PO Q8HR PRN (Reason: Muscle Spasm) Patient Comments: TAKE ONE TABLET BY MOUTH EVERY 8 HOURS NEEDED FOR muscle SPASMS Mucinex DM 30-600 mg Tablet Extended Release 12 Hr 1 tab PO BID PRN (Reason: Cough) Qty: 10 0RF cefdinir 300 mg capsule 300 mg PO QDAY Qty: 3 0RF Rx Instructions: take 300mg after dialysis Friday, friday, friday. naloxone [Narcan] 4 mg/actuation spray,non-aerosol 4 mg intranasal Q2M PRN (Reason: opioid overdose) Qty: 2 2RF Rx Instructions: spray 1 dose into ONE nostril; alternate nostrils w each dose until help arrives furosemide 40 mg tablet 40 mg PO QDAY Qty: 2 0RF Lokelma 10 gram powder in packet 10 g PO balsam zohreh-castor oil [Venelex] Ointment 1 applic top BID Qty: 60 0RF lidocaine 5 % adhesive patch,medicated 1 patch topical QDAY Qty: 30 0RF Rx Instructions: leave on most painful area for up to 12 hrs Referrals: Bryce Bunn MD [Primary Care Provider] - In 1 week Problem List Clinical Impression: Urinary tract infection Patient/Caregiver Discharge Instructions Discharge Activity: activity as tolerated Education Materials: Understanding Urinary Tract ... Additional Instructions: Thank you for the opportunity for serving you today. You are stable for discharged . You are advised to: Follow-up with your PCP in 1 to 2 days Return to ED for worsening of symptoms, fever, worsening generalized weakness, Increase oral fluids Take medication as prescribed Print Language: Vietnamese Stand Alone Forms: Mellissa Award Info., Patient Portal Info Letter
[2024-10-30 12:39] LABS: Basophils % (Auto) 0 % (0-2.5); Eosinophils % (Auto) 0 % (0-10); Hematocrit 33.2 % (41.0-53.0); Hemoglobin 10.7 g/dL (13.5-16.0); Immature Granulocytes % (Auto) 1 % (0-0); Lactate (Lactic Acid) 2.9 mMol/L (0.4-2.0); Lymphocytes # (Auto) 0.2 Thou/mm3 (1.0-4.8); Lymphocytes % (Auto) 2 % (10-50); Mean Corpuscular HGB Conc 32.2 g/dl (31.0-37.0); Mean Corpuscular Hemoglobin 31.1 pg (25.0-35.0); Mean Corpuscular Volume 97 fL (80-100); Monocytes # (Auto) 1.1 Thou/mm3 (0.0-0.8); Monocytes % (Auto) 8 % (0-12); Neutrophils # (Auto) 12.4 Thou/mm3 (1.8-7.7); Neutrophils % (Auto) 90 % (37-80); Nucleated Red Blood Cell % 0 /100 WBC (0); Platelet Count 144 Thou/mm3 (140-440); RDW Standard Deviation 49.1 fL (35.1-43.9); Red Blood Count 3.44 Miln/mm3 (4.50-5.90); White Blood Count 13.8 Thou/mm3 (3.8-10.6)
[2024-10-30 13:02] LABS: INR 1.3 (0.9-1.3); Partial Thromboplastin Time 35.3 Seconds (22.0-36.0); Prothrombin Time 13.5 Seconds (9.0-12.2)
[2024-10-30 13:04] LABS: B-Type Natriuretic Peptide 220 pg/mL (0-100)
[2024-10-30 13:15] LABS: Alanine Aminotransferase 15 U/L (10-49); Albumin, Serum 3.7 gm/dL (3.5-5.0); Albumin/Globulin Ratio 1.4 (1.2-2.2); Alkaline Phosphatase 188 U/L (46-116); Anion Gap 11 (7-16); Aspartate Amino Transferase 13 U/L (0-34); BUN/Creatinine Ratio 5 Ratio (12-20); Bilirubin,Total 0.5 mg/dL (0.3-1.2); Blood Urea Nitrogen 23 mg/dL (9-23); Calcium 8.4 mg/dL (8.3-10.6); Calcium (Corrected) 8.6 mg/dL (8.5-10.1); Carbon Dioxide 22.4 mMol/L (20.0-31.0); Chloride 96 mMol/L (98-107); Creatinine (Component) 4.5 mg/dL (0.6-1.3); Estimated Creatinine Clearance 31.1 mL/min (>60); Globulin 2.7 gm/dL (2.3-3.5); Glucose 120 mg/dL (74-106); LDH (Lactate Dehydrogenase) 167 U/L (120-246); Lipase 12 U/L (12-53); Magnesium 1.3 mg/dL (1.6-2.6); Osmolality,Calculated 263 (275-295); Phosphorous 3.3 mg/dL (2.4-5.1); Procalcitonin 3.01 ng/ml (0.0-0.49); Sodium 129 mMol/L (136-145); Total Protein 6.4 gm/dL (5.7-8.2); Troponin I < 0.020 ng/mL (0.0-0.045); eGFR 17 See Note
[2024-10-30] MEDS: IBUPROFEN TAB 400 MG TABLET 800 MG PO (13:20)
[2024-10-30] MEDS: HYDROcodone/APAP 10/325 TAB PO (13:21)
[2024-10-30] MEDS: LEVOFLOXACIN/D5W 750MG IVPB 750 MG/150 ML BAG 100 MG IV (13:29)
[2024-10-30] MEDS: RINGERS LACTATED 1000 ML 1,000 ML 999 ML IV (13:29)
[2024-10-30 15:23] LABS: Collection Type, Urine Clean Catch
[2024-10-30 15:30] LABS: Bacteria,Urine 1+; Bilirubin,Urine Negative (Negative); Blood,Urine 3+ (Negative); Glucose, Urine Negative (Negative); Ketones,Urine Negative (Negative); Leukocyte Esterase,Urine Positive (Negative); Nitrite,Urine Negative (Negative); PH,Urine 7.5 (5.0-7.0); Protein,Urine 2+ (Neg - Trace); RBC,Urine 1143 /hpf (0-3); Specific Gravity,Urine 1.008 (1.001-1.035); Squamous Epithelial Cell,Urine 46 /hpf (0-5); Urobilinogen,Urine Negative mg/dL (0.0-1.0); WBC,Urine 1737 /hpf (0-5)
[2024-10-30 15:36] LABS: Reflex Lactate? Y
[2024-10-30 15:43] LABS: Clarity,Urine Cloudy (Clear/Hazy); Color,Urine Lt-Yellow (Lt Yel-Yel)
[2024-10-30 16:38] LABS: Lactic Acid, 3 HR 1.2 mMol/L (0.4-2.0)
== END 2024-10-30 17:51 | disposition home or self-care (01) ==
PROVIDERS: Nurse Practitioner Family; Emergency Provider Emergency Medicine; PCP Family Medicine
DX: N39.0 Urinary tract infection, site not specified (principal); G82.20 Paraplegia, unspecified; L89.326 Pressure-induced deep tissue damage of left buttock; R00.0 Tachycardia, unspecified
CPT/HCPCS: 51702; 36415; 71045; 80053; 81001; 83605; 83615; 83690; 83735; 83880; 84100; 84145; 84484; 85025; 85610; 85730; 87040; 87086; 93005; 96365; 96366; 99284; A4314; J1956; J7120; A9270

== ENCOUNTER → 2024-11-17 | Outpatient (CLI) | payer MEDICARE, MEDICAID, SELFPAY ==
[2024-11-17 16:24] LABS: Collection Type, Urine Clean Catch
[2024-11-17 18:01] LABS: Bilirubin,Urine Negative (Negative); Blood,Urine 2+ (Negative); Color,Urine Orange (Lt Yel-Yel); Glucose, Urine Negative (Negative); Ketones,Urine Negative (Negative); Leukocyte Esterase,Urine Positive (Negative); Nitrite,Urine Negative (Negative); PH,Urine 6.5 (5.0-7.0); Protein,Urine 2+ (Neg - Trace); RBC,Urine 38 /hpf (0-3); Specific Gravity,Urine 1.007 (1.001-1.035); Squamous Epithelial Cell,Urine 7 /hpf (0-5); Urobilinogen,Urine Negative mg/dL (0.0-1.0); WBC,Urine 1342 /hpf (0-5)
[2024-11-17 18:02] LABS: Clarity,Urine Turbid (Clear/Hazy)
== END | disposition home or self-care (01) ==
LOC: SLDO 16:21
PROVIDERS: PCP Family Medicine; Referring Provider Family Medicine; Visit Provider Family Medicine
DX: N39.0 Urinary tract infection, site not specified (principal)
CPT/HCPCS: 81001; 87077; 87086; 87186

== ENCOUNTER 2025-01-07 22:09 | Inpatient (IN) | payer MEDICARE, MEDICAID, SELFPAY ==
[2025-01-07 22:12] VITALS: BP 159/89; PULSE 100; RESP 20; TEMP 36.9; O2SAT 100
[2025-01-07 22:14] VITALS: BMI 27.5
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
[2025-01-07 23:38] LABS: Basophils # (Auto) 0.1 Thou/mm3 (0.0-0.2); Basophils % (Auto) 1 % (0-2.5); Eosinophils # (Auto) 0.3 Thou/mm3 (0.0-0.5); Eosinophils % (Auto) 4 % (0-10); Hematocrit 38.0 % (41.0-53.0); Hemoglobin 11.7 g/dL (13.5-16.0); Immature Granulocytes Auto 0.03 Thou/mm3 (0.00-0.00); Lymphocytes # (Auto) 1.4 Thou/mm3 (1.0-4.8); Lymphocytes % (Auto) 19 % (10-50); Mean Corpuscular HGB Conc 30.8 g/dl (31.0-37.0); Mean Corpuscular Hemoglobin 31.7 pg (25.0-35.0); Mean Corpuscular Volume 103 fL (80-100); Monocytes # (Auto) 0.5 Thou/mm3 (0.0-0.8); Monocytes % (Auto) 7 % (0-12); Neutrophils # (Auto) 5.2 Thou/mm3 (1.8-7.7); Neutrophils % (Auto) 69 % (37-80); Nucleated Red Blood Cell # 0.00 Thou/mm3 (0.00-0.00); Nucleated Red Blood Cell % 0 /100 WBC (0); Platelet Count 136 Thou/mm3 (140-440); RDW Standard Deviation 60.0 fL (35.1-43.9); Red Blood Count 3.69 Miln/mm3 (4.50-5.90); White Blood Count 7.5 Thou/mm3 (3.8-10.6)
[2025-01-07 23:52] LABS: Anion Gap 14 (7-16); BUN/Creatinine Ratio 5 Ratio (12-20); Blood Urea Nitrogen 30 mg/dL (9-23); Calcium 10.0 mg/dL (8.3-10.6); Carbon Dioxide 18.5 mMol/L (20.0-31.0); Chloride 97 mMol/L (98-107); Creatinine (Component) 5.7 mg/dL (0.6-1.3); Estimated Creatinine Clearance 21.4 mL/min (>60); Glucose 80 mg/dL (74-106); Osmolality,Calculated 264 (275-295); Potassium 5.8 mMol/L (3.4-5.1); Sodium 129 mMol/L (136-145); eGFR 12 See Note
[2025-01-07 23:54] LABS: INR 1.0 (0.9-1.3); Prothrombin Time 11.2 Seconds (9.0-12.2)
[2025-01-08] VITALS (30 sets, daily range): BP systolic 99–151; BP diastolic 62–93; PULSE 56–117; RESP 13–23; TEMP 35.3–36.9; O2SAT 94–100; BMI 62.1
[2025-01-08] MEDS: MORPHINE SULF INJ 10 MG/ML VIAL 4 MG IM (00:17)
--- NOTE | 2025-01-08 01:34 | EKG_ITS ---
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
[2025-01-08 01:44] LABS: Collection Type, Urine Catheter
[2025-01-08 01:52] LABS: Bilirubin,Urine Negative (Negative); Blood,Urine 3+ (Negative); Clarity,Urine Turbid (Clear/Hazy); Color,Urine Red (Lt Yel-Yel); Glucose, Urine Negative (Negative); Ketones,Urine Negative (Negative); Leukocyte Esterase,Urine Positive (Negative); Nitrite,Urine Negative (Negative); PH,Urine 7.5 (5.0-7.0); Protein,Urine 2+ (Neg - Trace); RBC,Urine 3613 /hpf (0-3); Specific Gravity,Urine 1.006 (1.001-1.035); Squamous Epithelial Cell,Urine 15 /hpf (0-5); Urobilinogen,Urine Negative mg/dL (0.0-1.0); WBC,Urine 1093 /hpf (0-5)
--- NOTE | 2025-01-08 04:01 | XR_ITS ---
Examination: AP chest single view. FINDINGS: AP portable semiupright chest single view. Date and time: January 08, 2025, 0623 hours, comparison October 30, 2024 INDICATIONS: Coughing and shortness of breath today. FINDINGS: Mild prominence cardiac contour. Ectatic thoracic aorta. Upper thoracic orthopedic stabilization hardware. Osseous structures intact. No pneumonia or pulmonary edema IMPRESSION: No pneumonia or pulmonary edema.
--- NOTE | 2025-01-08 04:09 | XR_ITS ---
Examination: CT abdomen with intravenous contrast CT pelvis with intravenous contrast 2-D coronal reconstructions 2-D sagittal reconstructions Date and time of exam:January 08, 2025, 0430 hours, comparison May 14, 2024 INDICATIONS: Hematuria episodes today, history kidney stones. CTDI: vol (mGy) 13.3 DLP: (mGycm) 833 Technique: Multiple axial sections of the abdomen and pelvis have been obtained. 64 slice high-resolution scanner used. 3 mm axial sections have been obtained, post intravenous injection 60 cc [id number]. 2-D sagittal, coronal reconstructions obtained. Low dose protocols were performed. One or more of the following dose reduction techniques were used; automated exposure control, adjustment of the mA and/or KV according to patient size, use of iterative reconstruction technique. Findings: Small bilateral pleural effusions with atelectasis in the lower lung zones 4 cm right lateral breast mass with edema throughout the breast No visualized liver or splenic lesion Contracted gallbladder, gallstones Numerous bilateral renal calculi Atrophic left kidney Significant bilateral scarring Foci of edema in the right kidney IVC filter Aorta normal size No bowel obstruction No pericecal inflammatory change Richardson catheter and contracted urinary bladder, urinary bladder wall thickening. Soft tissue defect extending from the skin surface to the anus without fluid-filled abscess Rectal wall thickening Abnormal sclerosis involving all visualized bones IMPRESSION: 4 cm right breast mass with edema throughout the breast, recommend bilateral breast sonography follow-up Recommend hepatobiliary sonography follow-up Numerous bilateral renal calculi Right common nephritis, no hydronephrosis or ureteral calculi Cystitis pattern Soft tissue defect extending from the skin surface to the anus without fluid-filled abscess Abnormal diffuse sclerosis involving the bones, which can be seen with renal failure, osteoblastic metastatic disease, clinical correlation advised
[2025-01-08 04:57] LABS: Base Excess -7 (-3-3); HCO3 21 mEq/L (20-26); Inspired Oxygen, FIO2 21 %; O2 Saturation 47 % (91-98); PCO2 59 mmHg (32.0-48.0)
[2025-01-08 04:58] LABS: Allen Test Not Performed; Inspired O2, VO2 Liters 2 L/min; Puncture Site Femoral Artery
[2025-01-08 04:59] LABS: PO2 27 mmHg (83-108); pH, Arterial 7.17 (7.35-7.45)
[2025-01-08] MEDS: ALBUTEROL RT 2.5 MG/0.5 ML NEBU 10 MG INH (05:04)
[2025-01-08 05:06] LABS: Lactate (Lactic Acid) 0.8 mMol/L (0.4-2.0)
[2025-01-08 05:22] LABS: Basophils # (Auto) 0.1 Thou/mm3 (0.0-0.2); Basophils % (Auto) 1 % (0-2.5); Eosinophils # (Auto) 0.3 Thou/mm3 (0.0-0.5); Eosinophils % (Auto) 4 % (0-10); Hematocrit 31.7 % (41.0-53.0); Hemoglobin 10.1 g/dL (13.5-16.0); Immature Granulocytes Auto 0.02 Thou/mm3 (0.00-0.00); Lymphocytes # (Auto) 1.0 Thou/mm3 (1.0-4.8); Lymphocytes % (Auto) 14 % (10-50); Mean Corpuscular HGB Conc 31.9 g/dl (31.0-37.0); Mean Corpuscular Hemoglobin 32.8 pg (25.0-35.0); Mean Corpuscular Volume 103 fL (80-100); Monocytes # (Auto) 0.6 Thou/mm3 (0.0-0.8); Monocytes % (Auto) 9 % (0-12); Neutrophils # (Auto) 5.0 Thou/mm3 (1.8-7.7); Neutrophils % (Auto) 72 % (37-80); Nucleated Red Blood Cell # 0.00 Thou/mm3 (0.00-0.00); Nucleated Red Blood Cell % 0 /100 WBC (0); Platelet Count 148 Thou/mm3 (140-440); RDW Standard Deviation 60.4 fL (35.1-43.9); Red Blood Count 3.08 Miln/mm3 (4.50-5.90); White Blood Count 6.9 Thou/mm3 (3.8-10.6)
[2025-01-08] MEDS: INSULIN HUM REGULAR 1 UNIT/0.01 ML (PER UNIT) 5 UNIT IV (05:41)
[2025-01-08] MEDS: GABAPENTIN 100 MG CAPSULE 200 MG PO ×3 (05:54→21:12)
--- NOTE | 2025-01-08 05:54 | PRELIM_ITS ---
CT scan of the abdomen and pelvis with intravenous contrast (axial sections with sagittal and coronal reformats) January 08, 2025 0430 hours Clinical History: Rule out pyelonephritis Comparison: Reference is made to the prior report dated May 14, 2024. Findings: Small complex bilateral pleural effusions are seen as previously described. There is mild bilateral pleural thickening. Atelectasis is seen in bilateral lower lobes. Irregular liver margins are seen as previously described. Overdistended gallbladder is seen associated with mild wall thickening, as previously described. There are a few small calcified gallstones, as previously described. The spleen, pancreas, and adrenals are unremarkable. Nonobstructing bilateral k idney calculi are seen, as previously described. Left renal pelvis calculus measuring 0.8 cm is seen with mild left calyceal fullness. There are bilateral renal cysts. A few ill-defined hypodense lesions are seen in the right kidney, the largest measures 2.4 x 1.6 cm, likely represent changes of pyelonephritis. Nonspecific perinephric fat stranding is noted bilaterally. The left kidney is mildly small in size. No evidence of bowel obstruction. No evidence of appendicitis. There is no significant mesenteric or retroperitoneal adenopathy. A Richardson catheter in place, the urinary bladder is nondistended, limited evaluation, air within the urinary bladder, thickening of the urine bladder wall. There is no free fluid, free air or abscess. Degenerative changes are identified in the spine. There is bilateral gynecomastia. A gastric PEG tube in place. An IVC filter in place. There is right lower quadrant ostomy. There is skin thickening at the level of the coccyx. No collections. Venous collaterals are seen in abdominal wall bilaterally. Impression: 1. Findings suggestive of right pyelonephritis. 2. Nonobstructing bilateral kidney calculi. Left renal pelvis calculus. 3. Liver parenchymal disease. 4. Gallstones, gallbladder wall thickening and overdistended gallbladder, suspicious for acute cholecystitis. 5. Probable cystitis. 6. Small complex bilateral pleural effusions. 7. Possible decubitus wound at the level of the coccyx. Recommend clinical correlation. Report Electronically Signed By: Bob Thompson 01/08/2025 5:53:36 AM [EST]
[2025-01-08] MEDS: SOD POLYSTYRENE SULFON SUSP 15 GM/60 ML BTL PO (05:55)
[2025-01-08 05:56] LABS: Alanine Aminotransferase 8 U/L (10-49); Albumin, Serum 3.8 gm/dL (3.5-5.0); Albumin/Globulin Ratio 1.4 (1.2-2.2); Alkaline Phosphatase 172 U/L (46-116); Anion Gap 11 (7-16); Aspartate Amino Transferase 12 U/L (0-34); BUN/Creatinine Ratio 7 Ratio (12-20); Blood Urea Nitrogen 38 mg/dL (9-23); Calcium 9.2 mg/dL (8.3-10.6); Calcium (Corrected) 9.4 mg/dL (8.5-10.1); Carbon Dioxide 20.5 mMol/L (20.0-31.0); Cardiac Risk Estimate 3.5 RATIO (4.0-6.7); Chloride 98 mMol/L (98-107); Cholesterol 94 mg/dL (132-200); Creatinine (Component) 5.8 mg/dL (0.6-1.3); Estimated Creatinine Clearance 21.0 mL/min (>60); Globulin 2.8 gm/dL (2.3-3.5); Glucose 96 mg/dL (74-106); HDL Cholesterol 27 mg/dL (40-60); Magnesium 1.8 mg/dL (1.6-2.6); Osmolality,Calculated 267 (275-295); Phosphorous 6.4 mg/dL (2.4-5.1); Potassium 5.0 mMol/L (3.4-5.1); Sodium 129 mMol/L (136-145); Thyroid Stimulating Hormone 3.36 uIU/mL (0.55-4.78); Total Protein 6.6 gm/dL (5.7-8.2); Triglycerides 406 mg/dL (30-150); eGFR 12 See Note
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
[2025-01-08 06:04] LABS: Bilirubin,Total < 0.2 mg/dL (0.3-1.2)
[2025-01-08] MEDS: LEVOFLOXACIN/D5W 750MG IVPB 750 MG/150 ML BAG 150 MG IV (06:59)
[2025-01-08 07:21] LABS: Base Excess, Venous -9 (-3-3); O2 Saturation, Venous 61 % (96-97); PCO2, Venous 57 mmHg (36-56); PO2, Venous 34 mmHg (15-58); pH, Venous 7.15 (7.33-7.66)
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
--- NOTE | 2025-01-08 10:46 | XR_ITS ---
Examination: Breast ultrasound complete, bilateral Date and time of exam: January 08, 2025, 1421 hrs. Indications: Right breast axillary swelling since fistula placement in 2023, worse the last week. Technique: Real-time grayscale ultrasonographic imaging bilateral breasts, including all 4 quadrants as well as nipple retroareolar and axillary regions. Findings: Sonographic images right breast. Moderate edema throughout the breast Sonographic images left breast No cystic or solid mass. Impression: Diffuse edema right breast. No soft tissue abscess or hematoma.
[2025-01-08 11:28] LABS: Ammonia < 10 uMol/L (11-32)
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
[2025-01-08] MEDS: HYDROcodone/APAP 5/325 TABLET 1 TAB PO ×2 (12:47→19:05)
[2025-01-08 16:03] LABS: Base Excess, Venous -3 (-3-3); O2 Saturation, Venous 70 % (96-97); PCO2, Venous 49 mmHg (36-56); PO2, Venous 34 mmHg (15-58); pH, Venous 7.30 (7.33-7.66)
[2025-01-08] MEDS: LIDOCAINE 5% 1 PATCH TOP (23:03)
[2025-01-09] VITALS (24 sets, daily range): BP systolic 92–143; BP diastolic 63–97; PULSE 74–127; RESP 17–97; TEMP 36.1–36.7; O2SAT 97–100
[2025-01-09 05:50] LABS: Base Excess, Venous -3 (-3-3); O2 Saturation, Venous 87 % (96-97); PCO2, Venous 48 mmHg (36-56); PO2, Venous 50 mmHg (15-58); pH, Venous 7.30 (7.33-7.66)
[2025-01-09 06:04] LABS: Basophils # (Auto) 0.1 Thou/mm3 (0.0-0.2); Basophils % (Auto) 1 % (0-2.5); Eosinophils # (Auto) 0.2 Thou/mm3 (0.0-0.5); Eosinophils % (Auto) 3 % (0-10); Hematocrit 28.8 % (41.0-53.0); Hemoglobin 9.0 g/dL (13.5-16.0); Immature Granulocytes Auto 0.03 Thou/mm3 (0.00-0.00); Lymphocytes # (Auto) 0.8 Thou/mm3 (1.0-4.8); Lymphocytes % (Auto) 14 % (10-50); Mean Corpuscular HGB Conc 31.3 g/dl (31.0-37.0); Mean Corpuscular Hemoglobin 32.3 pg (25.0-35.0); Mean Corpuscular Volume 103 fL (80-100); Monocytes # (Auto) 0.6 Thou/mm3 (0.0-0.8); Monocytes % (Auto) 11 % (0-12); Neutrophils # (Auto) 4.1 Thou/mm3 (1.8-7.7); Neutrophils % (Auto) 70 % (37-80); Nucleated Red Blood Cell # 0.00 Thou/mm3 (0.00-0.00); Nucleated Red Blood Cell % 0 /100 WBC (0); Platelet Count 139 Thou/mm3 (140-440); RDW Standard Deviation 61.4 fL (35.1-43.9); Red Blood Count 2.79 Miln/mm3 (4.50-5.90); White Blood Count 5.8 Thou/mm3 (3.8-10.6)
[2025-01-09] MEDS: HYDROcodone/APAP 5/325 TABLET 1 TAB PO (06:11)
[2025-01-09] MEDS: GABAPENTIN 100 MG CAPSULE 200 MG PO ×3 (06:11→21:11)
[2025-01-09 06:43] LABS: Alanine Aminotransferase 11 U/L (10-49); Albumin, Serum 3.5 gm/dL (3.5-5.0); Albumin/Globulin Ratio 1.3 (1.2-2.2); Alkaline Phosphatase 160 U/L (46-116); Anion Gap 9 (7-16); Aspartate Amino Transferase 10 U/L (0-34); BUN/Creatinine Ratio 6 Ratio (12-20); Bilirubin,Total < 0.2 mg/dL (0.3-1.2); Blood Urea Nitrogen 31 mg/dL (9-23); Calcium 9.3 mg/dL (8.3-10.6); Calcium (Corrected) 9.7 mg/dL (8.5-10.1); Carbon Dioxide 22.7 mMol/L (20.0-31.0); Chloride 101 mMol/L (98-107); Creatinine (Component) 5.1 mg/dL (0.6-1.3); Estimated Creatinine Clearance 23.9 mL/min (>60); Globulin 2.8 gm/dL (2.3-3.5); Glucose 104 mg/dL (74-106); Magnesium 1.8 mg/dL (1.6-2.6); Osmolality,Calculated 272 (275-295); Phosphorous 6.6 mg/dL (2.4-5.1); Potassium 5.9 mMol/L (3.4-5.1); Sodium 133 mMol/L (136-145); Total Protein 6.3 gm/dL (5.7-8.2); eGFR 14 See Note
[2025-01-09] MEDS: PANTOPRAZOLE 40 MG TABLET PO (08:47)
[2025-01-09] MEDS: LEVOFLOXACIN/D5W 250MG IVPB 250 MG/50 ML BAG 50 MG IV (08:48)
[2025-01-09] MEDS: ALBUTEROL RT 2.5 MG/0.5 ML NEBU INH (09:02)
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
[2025-01-09 15:22] LABS: Anion Gap 10 (7-16); BUN/Creatinine Ratio 4 Ratio (12-20); Blood Urea Nitrogen 14 mg/dL (9-23); Calcium 9.1 mg/dL (8.3-10.6); Carbon Dioxide 29.3 mMol/L (20.0-31.0); Chloride 97 mMol/L (98-107); Creatinine (Component) 3.2 mg/dL (0.6-1.3); Estimated Creatinine Clearance 65.4 mL/min (>60); Glucose 154 mg/dL (74-106); Osmolality,Calculated 275 (275-295); Potassium 4.0 mMol/L (3.4-5.1); Sodium 136 mMol/L (136-145); eGFR 25 See Note
[2025-01-09] MEDS: SEVELAMER CARBONATE 800 MG TABLET 2400 MG PO (17:23)
[2025-01-09] MEDS: COLLAGENASE OINT 30 GM TUBE TOP (17:24)
[2025-01-09] MEDS: PATIROMER CALCIUM 8.4 GM PACKET PO (17:25)
[2025-01-10] VITALS (8 sets, daily range): BP systolic 95–131; BP diastolic 60–78; PULSE 85–121; RESP 16–93; TEMP 36.1–36.6; O2SAT 93–100; BMI 26.8
[2025-01-10] MEDS: GABAPENTIN 100 MG CAPSULE 200 MG PO ×3 (05:11→22:26)
[2025-01-10] MEDS: LEVOTHYROXINE SODIUM 25 MCG TABLET PO (05:11)
[2025-01-10 06:10] LABS: Basophils # (Auto) 0.0 Thou/mm3 (0.0-0.2); Basophils % (Auto) 1 % (0-2.5); Eosinophils # (Auto) 0.2 Thou/mm3 (0.0-0.5); Eosinophils % (Auto) 4 % (0-10); Hematocrit 28.3 % (41.0-53.0); Immature Granulocytes Auto 0.03 Thou/mm3 (0.00-0.00); Lymphocytes # (Auto) 1.0 Thou/mm3 (1.0-4.8); Lymphocytes % (Auto) 20 % (10-50); Mean Corpuscular HGB Conc 31.1 g/dl (31.0-37.0); Mean Corpuscular Hemoglobin 32.4 pg (25.0-35.0); Mean Corpuscular Volume 104 fL (80-100); Monocytes # (Auto) 0.5 Thou/mm3 (0.0-0.8); Monocytes % (Auto) 10 % (0-12); Neutrophils # (Auto) 3.4 Thou/mm3 (1.8-7.7); Neutrophils % (Auto) 65 % (37-80); Nucleated Red Blood Cell # 0.00 Thou/mm3 (0.00-0.00); Nucleated Red Blood Cell % 0 /100 WBC (0); Platelet Count 147 Thou/mm3 (140-440); RDW Standard Deviation 61.7 fL (35.1-43.9); Red Blood Count 2.72 Miln/mm3 (4.50-5.90); White Blood Count 5.3 Thou/mm3 (3.8-10.6)
[2025-01-10 06:18] LABS: Hemoglobin 8.8 g/dL (13.5-16.0)
[2025-01-10 06:44] LABS: Alanine Aminotransferase 9 U/L (10-49); Albumin, Serum 3.5 gm/dL (3.5-5.0); Albumin/Globulin Ratio 1.1 (1.2-2.2); Alkaline Phosphatase 156 U/L (46-116); Anion Gap 9 (7-16); Aspartate Amino Transferase 12 U/L (0-34); BUN/Creatinine Ratio 5 Ratio (12-20); Bilirubin,Total 0.2 mg/dL (0.3-1.2); Blood Urea Nitrogen 18 mg/dL (9-23); Calcium 8.8 mg/dL (8.3-10.6); Calcium (Corrected) 9.2 mg/dL (8.5-10.1); Carbon Dioxide 26.7 mMol/L (20.0-31.0); Chloride 98 mMol/L (98-107); Creatinine (Component) 3.8 mg/dL (0.6-1.3); Estimated Creatinine Clearance 55.0 mL/min (>60); Globulin 3.1 gm/dL (2.3-3.5); Glucose 101 mg/dL (74-106); Magnesium 1.7 mg/dL (1.6-2.6); Osmolality,Calculated 270 (275-295); Phosphorous 4.5 mg/dL (2.4-5.1); Potassium 4.4 mMol/L (3.4-5.1); Sodium 134 mMol/L (136-145); Total Protein 6.6 gm/dL (5.7-8.2); eGFR 20 See Note
--- NOTE | 2025-01-10 08:00 | PC.NURSE ---
UPON ENTERING ROOM RIGHT SIDE RAIL IS NOT UP, PT IS ALERT AND ORIENTED X4, SAFETY AND FALL EDUCATION PROVIDED, CHARGE NURSE MADE AWARE. PT VERBALIZE UNDERSTANDING.
[2025-01-10] MEDS: PANTOPRAZOLE 40 MG TABLET PO (09:34)
[2025-01-10] MEDS: SEVELAMER CARBONATE 800 MG TABLET 2400 MG PO ×3 (09:34→17:34)
[2025-01-10] MEDS: LEVOFLOXACIN/D5W 250MG IVPB 250 MG/50 ML BAG 50 MG IV (09:34)
[2025-01-10] MEDS: PATIROMER CALCIUM 8.4 GM PACKET PO (09:34)
[2025-01-10] MEDS: COLLAGENASE OINT 30 GM TUBE TOP (09:50)
--- NOTE | 2025-01-10 09:50 | ESPR_ITS ---
Subjective Subjective Interval history: pyuria noted . hx per dr putnam team note Exam Vital Signs Temp Pulse Resp BP Pulse Ox O2 Del Method O2 Flow Rate 97.0 F 106 H 22 H 95/66 99 Oxy Mask 4 01/10/25 08:00 01/10/25 08:00 01/10/25 08:00 01/10/25 08:00 01/10/25 08:00 01/10/25 08:00 01/10/25 08:00 FiO2 3 01/08/25 11:25 Narrative Exam alert. on O2. paraplegic with no feeling below the ribcage. prior ileostomy noted. has chronic brody, feels better than when he arrived Objective - Internal Medicine Labs 01/10/25 05:21 01/10/25 05:21 Labs: Laboratory Results - last 24 hr 01/09/25 01/10/25 14:50 05:21 WBC 5.3 RBC 2.72 L Hgb 8.8 L Hct 28.3 L MCV 104 H MCH 32.4 MCHC 31.1 RDW Std Deviation 61.7 H Plt Count 147 Neut % (Auto) 65 Lymph % (Auto) 20 [place] % (Auto) 10 Eos % (Auto) 4 Baso % (Auto) 1 Neut # (Auto) 3.4 Lymph # (Auto) 1.0 [place] # (Auto) 0.5 Eos # (Auto) 0.2 Baso # (Auto) 0.0 Immature Gran # (Auto) 0.03 H Absolute Nucleated RBC 0.00 Immature Gran % 1 H Nucleated RBC % 0 Sodium 136 134 L Potassium 4.0 D 4.4 Chloride 97 L 98 Carbon Dioxide 29.3 26.7 Anion Gap 10 9 BUN 14 18 Creatinine 3.2 H D 3.8 H D Estim Creat Clear Calc 65.4 55.0 L eGFR 25 L 20 L BUN/Creatinine Ratio 4 L 5 L Glucose 154 H D 101 D Calculated Osmolality 275 270 L Calcium 9.1 8.8 Corrected Calcium 9.2 Phosphorus 4.5 Magnesium 1.7 Total Bilirubin 0.2 L AST 12 ALT 9 L Alkaline Phosphatase 156 H Total Protein 6.6 Albumin 3.5 Globulin 3.1 Albumin/Globulin Ratio 1.1 L ABG Interpretation ABG results: 01/08/25 01/08/25 01/08/25 04:44 07:11 15:49 ABG pH 7.17 L* ABG pCO2 59 H ABG pO2 27 L* ABG HCO3 21 ABG O2 Saturation 47 L ABG Base Excess -7 L VBG pH 7.15 L 7.30 L VBG pCO2 57 H 49 VBG pO2 34 34 VBG Base Excess -9 L -3 01/09/25 05:30 ABG pH ABG pCO2 ABG pO2 ABG HCO3 ABG O2 Saturation ABG Base Excess VBG pH 7.30 L VBG pCO2 48 VBG pO2 50 VBG Base Excess -3 Assessment & Plan A&P Narrative uti vs colonization with R organism with apparent response to levaquin ckd 5 reportedly on hd. please adjust abx based on S from urine will check in friday pm he wants to go home today but that is unlikely given urine in past. Time Spent With Patient Time: Total time spent is greater than 50% in coordination of care (as documented) at patient's floor/unit and/or counseling patient:
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
--- NOTE | 2025-01-10 11:01 | PC.DIETICIAN ---
Dietitian recommendation: Add Vitamin C 250mg BID daily, Nephrovite daily to ensure adequate nutrient intake and promote wound healing (no zinc needed at this time) Thank you
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
[2025-01-11] VITALS: BP 108/83; PULSE 100; RESP 14; TEMP 36.1; O2SAT 100
[2025-01-11] MEDS: LIDOCAINE 5% 1 PATCH TOP (02:40)
[2025-01-11 04:00] VITALS: BP 101/66; PULSE 107; PULSE 84; RESP 14; TEMP 36.1; O2SAT 99
[2025-01-11 05:27] LABS: Basophils # (Auto) 0.1 Thou/mm3 (0.0-0.2); Basophils % (Auto) 1 % (0-2.5); Eosinophils # (Auto) 0.3 Thou/mm3 (0.0-0.5); Eosinophils % (Auto) 5 % (0-10); Hematocrit 28.5 % (41.0-53.0); Hemoglobin 8.9 g/dL (13.5-16.0); Immature Granulocytes Auto 0.03 Thou/mm3 (0.00-0.00); Lymphocytes # (Auto) 1.3 Thou/mm3 (1.0-4.8); Lymphocytes % (Auto) 22 % (10-50); Mean Corpuscular HGB Conc 31.2 g/dl (31.0-37.0); Mean Corpuscular Hemoglobin 31.9 pg (25.0-35.0); Mean Corpuscular Volume 102 fL (80-100); Monocytes # (Auto) 0.7 Thou/mm3 (0.0-0.8); Monocytes % (Auto) 11 % (0-12); Neutrophils # (Auto) 3.8 Thou/mm3 (1.8-7.7); Neutrophils % (Auto) 62 % (37-80); Nucleated Red Blood Cell # 0.00 Thou/mm3 (0.00-0.00); Nucleated Red Blood Cell % 0 /100 WBC (0); Platelet Count 158 Thou/mm3 (140-440); RDW Standard Deviation 61.0 fL (35.1-43.9); Red Blood Count 2.79 Miln/mm3 (4.50-5.90); White Blood Count 6.1 Thou/mm3 (3.8-10.6)
[2025-01-11] MEDS: GABAPENTIN 100 MG CAPSULE 200 MG PO ×2 (05:32→14:25)
[2025-01-11] MEDS: LEVOTHYROXINE SODIUM 25 MCG TABLET PO (05:33)
[2025-01-11 06:02] LABS: Alanine Aminotransferase 7 U/L (10-49); Albumin, Serum 3.6 gm/dL (3.5-5.0); Albumin/Globulin Ratio 1.4 (1.2-2.2); Alkaline Phosphatase 150 U/L (46-116); Anion Gap 9 (7-16); Aspartate Amino Transferase < 10 U/L (0-34); BUN/Creatinine Ratio 6 Ratio (12-20); Bilirubin,Total 0.2 mg/dL (0.3-1.2); Blood Urea Nitrogen 29 mg/dL (9-23); Calcium 9.1 mg/dL (8.3-10.6); Calcium (Corrected) 9.4 mg/dL (8.5-10.1); Carbon Dioxide 23.6 mMol/L (20.0-31.0); Chloride 98 mMol/L (98-107); Creatinine (Component) 4.5 mg/dL (0.6-1.3); Estimated Creatinine Clearance 27.1 mL/min (>60); Globulin 2.6 gm/dL (2.3-3.5); Glucose 123 mg/dL (74-106); Magnesium 1.5 mg/dL (1.6-2.6); Osmolality,Calculated 269 (275-295); Phosphorous 5.6 mg/dL (2.4-5.1); Potassium 4.9 mMol/L (3.4-5.1); Sodium 131 mMol/L (136-145); Total Protein 6.2 gm/dL (5.7-8.2); eGFR 16 See Note
[2025-01-11 06:07] LABS: HIV (1&2) Antibody Rapid Non-Reactive
[2025-01-11 07:10] VITALS: PULSE 94; RESP 20; O2SAT 99
[2025-01-11 08:00] VITALS: BP 96/68; PULSE 77; PULSE 94; RESP 18; TEMP 36.4; O2SAT 100
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
[2025-01-11] MEDS: SEVELAMER CARBONATE 800 MG TABLET 2400 MG PO ×2 (09:12→14:24)
[2025-01-11] MEDS: PANTOPRAZOLE 40 MG TABLET PO (09:12)
[2025-01-11] MEDS: LEVOFLOXACIN/D5W 250MG IVPB 250 MG/50 ML BAG 50 MG IV (09:12)
[2025-01-11] MEDS: Magnesium Sulfate 4 GM Ivpb 4 GM/50 ML BAG IV (09:12)
[2025-01-11] MEDS: COLLAGENASE OINT 30 GM TUBE TOP (09:13)
--- NOTE | 2025-01-11 09:39 | PD.RESPRO ---
Documentation for date of: 01/11/25 Exam Vital Signs Temp Pulse Resp BP Pulse Ox O2 Del Method O2 Flow Rate 97.6 F 94 18 96/68 100 Oxy Mask 2 01/11/25 08:00 01/11/25 08:00 01/11/25 08:00 01/11/25 08:00 01/11/25 08:00 01/11/25 08:00 01/11/25 08:00 FiO2 3 01/08/25 11:25 Objective Labs 01/11/25 04:36 01/11/25 04:36 Labs: Laboratory Results - last 24 hr 01/11/25 04:36 WBC 6.1 RBC 2.79 L Hgb 8.9 L Hct 28.5 L MCV 102 H MCH 31.9 MCHC 31.2 RDW Std Deviation 61.0 H Plt Count 158 Neut % (Auto) 62 Lymph % (Auto) 22 [place] % (Auto) 11 Eos % (Auto) 5 Baso % (Auto) 1 Neut # (Auto) 3.8 Lymph # (Auto) 1.3 [place] # (Auto) 0.7 Eos # (Auto) 0.3 Baso # (Auto) 0.1 Immature Gran # (Auto) 0.03 H Absolute Nucleated RBC 0.00 Immature Gran % 1 H Nucleated RBC % 0 Sodium 131 L Potassium 4.9 D Chloride 98 Carbon Dioxide 23.6 Anion Gap 9 BUN 29 H Creatinine 4.5 H* D Estim Creat Clear Calc 27.1 L eGFR 16 L BUN/Creatinine Ratio 6 L Glucose 123 H Calculated Osmolality 269 L Calcium 9.1 Corrected Calcium 9.4 Phosphorus 5.6 H Magnesium 1.5 L Total Bilirubin 0.2 L AST < 10 ALT 7 L Alkaline Phosphatase 150 H Total Protein 6.2 Albumin 3.6 Globulin 2.6 Albumin/Globulin Ratio 1.4 HIV 1&2 Antibody Rapid Non-Reactive ABG Interpretation ABG results: 01/08/25 01/08/25 01/08/25 04:44 07:11 15:49 ABG pH 7.17 L* ABG pCO2 59 H ABG pO2 27 L* ABG HCO3 21 ABG O2 Saturation 47 L ABG Base Excess -7 L VBG pH 7.15 L 7.30 L VBG pCO2 57 H 49 VBG pO2 34 34 VBG Base Excess -9 L -3 01/09/25 05:30 ABG pH ABG pCO2 ABG pO2 ABG HCO3 ABG O2 Saturation ABG Base Excess VBG pH 7.30 L VBG pCO2 48 VBG pO2 50 VBG Base Excess -3 Quality Measures Quality Measures VTE prophylaxis Assessment & Plan Assessment Current Active Medications: Generic Name Dose Route Start Last Admin Trade Name Freq PRN Reason Stop Dose Admin Acetaminophen 650 mg 01/09/25 10:27 Acetaminophen 325 Mg Tablet PO 02/07/25 03:55 Q6H PRN Pain 1-3 or Fever>100.1 Hydrocodone Bitart/Acetaminophen 1 tab 01/09/25 10:24 01/11/25 09:13 Hydrocodone/Apap 10/325 Tab PO 01/14/25 10:23 1 tab Q6HR PRN Administration Pain 4-8 Collagenase 0 gm 01/09/25 14:30 01/11/25 09:13 Collagenase Oint 30 Gm Tube TOP 02/08/25 14:29 1 applicatio QDAY FOREIGN Administration Cyclobenzaprine HCl 2.5 mg 01/10/25 16:02 01/11/25 02:40 Cyclobenzaprine 5 Mg Tablet PO 02/09/25 16:01 2.5 mg Q8HR PRN Administration Muscle Spasm Gabapentin 200 mg 01/08/25 06:00 01/11/25 05:32 Gabapentin 100 Mg Capsule PO 02/07/25 05:59 200 mg TID FOREIGN Administration Levofloxacin/Dextrose 250 mg in 50 mls @ 50 mls/hr 01/09/25 09:00 01/11/25 09:12 Levaquin Ivpb IV 01/16/25 08:59 50 mls/hr QDAY FOREIGN Administration Magnesium Sulfate 4 gm in 50 mls @ 12.5 mls/hr 01/11/25 08:08 01/11/25 09:12 Magnesium Sulfate Ivpb IV 01/11/25 12:07 12.5 mls/hr X1 ONE Administration Levothyroxine Sodium 25 mcg 01/10/25 06:00 01/11/25 05:33 Levothyroxine Sodium 25 Mcg Tablet PO 02/09/25 05:59 25 mcg ACBR FOREIGN Administration Ondansetron HCl 4 mg 01/08/25 03:56 Ondansetron Inj 2 Mg/Ml Inj 2 Ml IVP 02/07/25 03:55 Q6H PRN NAUSEA OR VOMITING Protocol Pantoprazole Sodium 40 mg 01/08/25 09:00 01/11/25 09:12 Pantoprazole 40 Mg Tablet PO 02/07/25 08:59 40 mg QDAY FOREIGN Administration Patiromer 8.4 gm 01/09/25 15:30 01/11/25 09:14 Patiromer Calcium 8.4 Gm Packet PO 02/08/25 15:29 Not Given DAILY FOREIGN Sevelamer Carbonate 2,400 mg 01/09/25 17:30 01/11/25 09:12 Sevelamer Carbonate 800 Mg Tablet PO 02/08/25 17:29 2,400 mg TIDWMEAL FOREIGN Administration Sodium Chloride 3 ml 01/08/25 04:56 Sodium Chloride Rt Lashaun 0.9% 3 Ml Nebu INH 02/07/25 04:55 PRN PRN SOLN
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
[2025-01-11 12:00] VITALS: BP 126/73; PULSE 69; PULSE 89; RESP 16; TEMP 36.2; O2SAT 100
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
--- NOTE | 2025-01-11 15:45 | PC.CC ---
Addendum entered and electronically signed by Praveena Jacobsen RPh 01/11/25 15:51: PA approved indefinitely. Updated [facility] who confirmed insurance paid. Original Note: Confirmed / [facility] fosfomycin requiring PA. Obtained [employer] MPD ID [id number]. PA submitted - pending.
--- NOTE | 2025-01-12 12:29 | PC.CC ---
[facility] accepted and booked, SOC 01/13
== END 2025-01-11 15:51 | disposition home or self-care (01) | DRG 689 ==
LOC: SERX 01-08 03:00 → SERHOLD 01-08 07:59 → S3SX 01-08 11:02
PROVIDERS: Internal Medicine Infectious Disease; Student in an Organized Health Care Education/Training Program; Admitting Provider Student in an Organized Health Care Education/Training Program; Emergency Provider Emergency Medicine; PCP Family Medicine; Visit Provider Student in an Organized Health Care Education/Training Program
DX: N12 Tubulo-interstitial nephritis, not specified as acute or chronic (principal); J96.01 Acute respiratory failure with hypoxia; J96.02 Acute respiratory failure with hypercapnia; G82.20 Paraplegia, unspecified; Z16.24 Resistance to multiple antibiotics; E66.2 Morbid (severe) obesity with alveolar hypoventilation; E87.1 Hypo-osmolality and hyponatremia; E87.20 Acidosis, unspecified; I12.0 Hypertensive chronic kidney disease with stage 5 chronic kidney disease or end stage renal disease; T78.2XXA Anaphylactic shock, unspecified, initial encounter; E03.9 Hypothyroidism, unspecified; F41.9 Anxiety disorder, unspecified; F32.A Depression, unspecified; N20.0 Calculus of kidney; E87.5 Hyperkalemia; N18.6 End stage renal disease; Z99.2 Dependence on renal dialysis; D63.1 Anemia in chronic kidney disease; F17.210 Nicotine dependence, cigarettes, uncomplicated; Z56.0 Unemployment, unspecified; B96.20 Unspecified Escherichia coli [E. coli] as the cause of diseases classified elsewhere; E78.5 Hyperlipidemia, unspecified; E83.39 Other disorders of phosphorus metabolism; G89.29 Other chronic pain; N25.81 Secondary hyperparathyroidism of renal origin; N31.9 Neuromuscular dysfunction of bladder, unspecified; R60.9 Edema, unspecified; N30.91 Cystitis, unspecified with hematuria; N63.10 Unspecified lump in the right breast, unspecified quadrant; Z74.01 Bed confinement status; Z87.440 Personal history of urinary (tract) infections; Z87.442 Personal history of urinary calculi; Z91.148 Patient's other noncompliance with medication regimen for other reason
CPT/HCPCS: 36415; 36600; 71045; 74177; 76641; 80048; 80053; 80061; 81001; 82140; 82803; 83605; 83735; 84100; 84443; 85025; 85610; 86703; 87040; 87077; 87086; 87186; 93005; 93225; 94640; 94644; 94660; 96365; 99284; A4649; J1815; J1956; J2270; J3475; J3490; Q9967; A9270; J7609

== ENCOUNTER 2025-04-07 17:43 | Emergency (ER) | payer MEDICARE, MEDICAID, SELFPAY ==
[2025-04-07] VITALS (9 sets, daily range): BP systolic 107–140; BP diastolic 61–90; PULSE 80–120; RESP 14–99; TEMP 36.6–36.9; O2SAT 98–100; BMI 28.0
--- NOTE | 2025-04-07 18:22 | PD.EDMALE ---
ED Male Genitalurinary RME/HPI General Chief complaint: Urogenital-Male Stated complaint: BLOOD IN URINE Time Seen by Provider: 04/07/25 18:09 Arrival date/time: 04/07/25 17:43 34-year-old male patient with significant history of paraplegia, on chronic Richardson catheter, ESRD, on hemodialysis, missed hemodialysis yesterday, came in for evaluation regarding gross hematuria. Patient has been having gross hematuria since Friday, severity moderate. Patient denies any suprapubic discomfort or pain. Denies any fever except for chronic back pain. Denies any other complaints. Related Data Home Medications ?Medication ?Instructions ?Recorded ?Confirmed gabapentin 600 mg tablet 600 mg PO TID 03/29/19 01/08/25 cholestyramine (with sugar) 4 gram 1 ea PO BID 08/24/20 01/08/25 powder for susp in a packet levothyroxine 25 mcg tablet 25 mcg PO QDAY 08/24/20 01/08/25 magnesium oxide 400 mg PO BID 08/24/20 01/08/25 sevelamer carbonate 800 mg tablet 2,400 mg PO TIDWMEAL 08/24/20 01/08/25 cinacalcet 30 mg tablet 30 mg PO QDAY 07/10/22 01/08/25 midodrine 10 mg tablet 10 mg PO TID PRN Hypotension 07/10/22 01/08/25 omeprazole 40 mg capsule,delayed 40 mg PO QDAY 07/10/22 01/08/25 release hydrocodone 10 mg-acetaminophen 1 tab PO Q6H PRN Pain (Scale Score 12/26/22 01/08/25 325 mg tablet 7-10) Held on 01/11/25. Instructions: resume with PCP sodium bicarbonate 650 mg tablet 650 mg PO BID 12/26/22 01/08/25 cyclobenzaprine 5 mg tablet 5 mg PO Q8HR PRN Muscle Spasm 01/19/24 01/08/25 sodium zirconium cyclosilicate 10 10 g PO QDAY PRN POTTASIUM BINDER 06/05/24 01/08/25 gram oral powder packet (Lokelma) Previous Rx's ?Medication ?Instructions ?Recorded balsam zohreh-castor oil topical 1 applic top BID #60 grams 06/06/24 ointment (Venelex topical ointment) fosfomycin tromethamine 3 gram 1 packet PO Q OTHER DAY 3 doses #1 01/11/25 oral packet ea nitrofurantoin 100 mg PO Q12H 7 days #14 caps 04/07/25 monohydrate/macrocrystals 100 mg capsule (Macrobid) Allergies Allergy/AdvReac Type Severity Reaction Status Date / Time piperacillin (From Zosyn) Allergy Severe Anaphylaxis Verified 04/07/25 17:50 tazobactam (From Zosyn) Allergy Severe Anaphylaxis Verified 04/07/25 17:50 LIZY Inhibitors Allergy Verified 04/07/25 17:50 Penicillins Allergy Anaphylaxis Verified 04/07/25 17:50 Review of Systems Review of Systems Narrative Review of Systems: Review of system reviewed and within normal limits except mentioned in HPI ED Exam Narrative Physical exam: VITAL SIGNS: Reviewed. GENERAL APPEARANCE: Alert and interactive, follows commands, no acute distress, HEAD AND FACE: Non-traumatic. ENT: PERRL, pink conjunctivitis, eyelid no trauma, Mucous membrane moist. NECK: Supple, nontender, no nuchal rigidity. CHEST: No tenderness, no crepitus, no paradoxical movement, no retractions. LUNGS: Clear, well ventilated, symmetric, no rales, no wheezing, no ronchi, no stridor, good breath sounds bilaterally. HEART: Regular rate, regular rhythm, no murmur, no gallops. ABDOMEN: Soft, positive bowel sounds, nondistended, no guarding, nontender, no rebound, no masses, RECTAL: Deferred. GENITAL: Chronic Richardson catheter, urine bag grossly bloody NEUROLOGICAL: Gross motor function intact sensory function intact, Appropriate for age. MUSCULOSKELETAL: low back nontender, full range of motion. EXTREMITIES: Nontender, full range of motion upper extremity, paraplegia. SKIN: Color pink, dry, no rash, no lacerations, no abrasions, no contusions. LYMPHATICS: Deferred. Course Quality Measures none Orders Category Date Time Status Bedside Blood Glucose Q2HX3 Care 04/07/25 19:43 Active Continuous Bladder Irrigation QSHIFT Care 04/07/25 19:08 Active EKG (ED ONLY) *Do not use* NOW Care 04/07/25 19:43 Completed Richardson [Urinary Catheter] QS Care 04/07/25 18:20 Active Miscellaneous Nursing Order NOW Care 04/07/25 18:20 Active EKG (ED Only) Stat Exams 04/07/25 19:43 Draft CBC [CBC] Stat Lab 04/07/25 18:55 Completed CMP [Comprehensive Metabolic Panel] Stat Lab 04/07/25 18:55 Completed PT [Prothrombin Time with INR] Stat Lab 04/07/25 18:55 Completed PTT [Partial Thromboplastin Time] Stat Lab 04/07/25 18:55 Completed Potassium Stat Lab 04/07/25 21:56 Completed UA, C/S IF [Urinalysis, C/S if Indicated] Stat Lab 04/07/25 22:05 Completed Urine Culture Stat Lab 04/07/25 22:05 Received ALBUTEROL RT 0.5ml [Proventil Rt 0.5ml] Med 04/07/25 19:43 Discontinued 7.5 mg INH X1 ONE CYCLObenzaPRINE [Flexeril] Med 04/07/25 18:20 Discontinued 10 mg PO X1 ONE Calcium Gluconate 10% Inj Med 04/07/25 19:43 Discontinued 1 gm IV X1 ONE Dextrose 10%-Water 1000 ml [D10w 1000 ml] 1,000 ml Med 04/07/25 19:45 Discontinued IV 100 mls/hr Dextrose 50% Syr [D50w Syringe Abboject] Med 04/07/25 19:43 Active 25 ml IV Q15MIN PRN Dextrose 50% Syr [D50w Syringe Abboject] Med 04/07/25 19:43 Active 50 ml IV Q15MIN PRN Furosemide [Lasix Inj] Med 04/07/25 19:43 Discontinued 40 mg IVP X1 ONE Glucagon Inj Med 04/07/25 19:43 Active 1 mg IM Q15MIN PRN HYDROcodone*/APAP 5/325 [[place] 5/325] Med 04/07/25 22:49 Once 1 tab PO X1 ONE Insulin Regular Med 04/07/25 19:43 Discontinued 10 unit IV X1 ONE Lidocaine Jelly 2% Urojet [Xylocaine Jelly 2% Urojet] Med 04/07/25 19:08 Discontinued See Dose Instructions TOP X1 ONE Morphine* Inj Med 04/07/25 18:21 Discontinued 4 mg IVP X1 ONE Morphine* Inj Med 04/07/25 20:39 Discontinued 4 mg IVP X1 ONE Nitrofurantoin Macro [Macrobid] Med 04/07/25 22:49 Once 100 mg PO X1 ONE Sod Polystyrene Sulfon Susp [Kayexalate Susp] Med 04/07/25 19:43 Discontinued 60 gm PO X1 ONE Sodium Chloride Rt Lashaun 0.9% [NS Rt Lasha[place] 0.9%] Med 04/07/25 19:43 Active 3 ml INH PRN PRN cephALEXin [Keflex] Med 04/07/25 22:47 Stop Req 500 mg PO X1 ONE Oxygen Delivery PRN RT 04/07/25 22:05 Active Vital Signs Vital signs: Vital Signs Temperature 97.9 F 04/07/25 17:44 Pulse Rate 80 04/07/25 17:44 Respiratory Rate 19 04/07/25 17:44 Blood Pressure 124/84 04/07/25 17:44 Pulse Oximetry (%) 100 04/07/25 17:44 Oxygen Delivery Method Room Air 04/07/25 17:44 Urogenital - Male MDM Narrative MDM Narrative:: 04/07/25 17:43 34-year-old male patient with significant history of paraplegia, on chronic Richardson catheter, ESRD, on hemodialysis, missed hemodialysis yesterday, came in for evaluation regarding gross hematuria. Patient has been having gross hematuria since Friday, severity moderate. Patient denies any suprapubic discomfort or pain. Denies any fever except for chronic back pain. Denies any other complaints. Patient was placed on a continuous bladder irrigation, and was noted to have a clear output after 3 L. Laboratory workup is significant for a potassium of 7.5. Urinalysis positive for UTI. Was given Keflex. Patient received hyperkalemia protocol. Regular insulin IV, Kayexalate 60, calcium gluconate, albuterol, D50 water. Patient was also given morphine and [place]. For back pain. Repeat potassium was noted to be 5.7. Patient scheduled for hemodialysis tomorrow. Patient stable for discharge home Patient data External records reviewed:: None Clinical information provided by:: patient Social determinants that could affect healthcare access:: none Patient has the following chronic illnesses:: ESRD, paraplegia, chronic Richardson How is presenting disease/condition affected by chronic disease/condition?: exacerbated by Evaluation data The following diagnostics were reviewed and interpreted by me:: lab results, radiology exam(s) and EKG tracing(s) Lab and/or radiology exams considered but not ordered:: None Interpretation Summary: EKG showed sinus rhythm, ventricular rate of 89 bpm, no ST segment elevation depression noted. Medications / Prescriptions Medications or Prescriptions considered but not ordered:: None Medication administrations:: Medication Administration History Cephalexin HCl (Cephalexin 250 Mg Capsule) 500 mg PO X1 ONE Stop: 04/07/25 22:48 Dextrose (Dextrose 50%-Water Inj 50 Ml Syringe) 25 ml IV Q15MIN PRN PRN Reason: BG 50-70 responsive npo pt Stop: 05/07/25 19:42 Dextrose (Dextrose 50%-Water Inj 50 Ml Syringe) 50 ml IV Q15MIN PRN PRN Reason: BG <50 OR BG <70 & pt unresponsive Stop: 05/07/25 19:42 Last Admin: 04/07/25 20:24 Dose: 50 ml Documented By: GB Glucagon (Glucagon Inj 1 Mg Vial) 1 mg IM Q15MIN PRN PRN Reason: BG <70, and no IV access Sodium Chloride (Sodium Chloride Rt Lashaun 0.9% 3 Ml Nebu) 3 ml INH PRN PRN PRN Reason: SOLN Stop: 05/07/25 19:42 Discontinued Medications Albuterol (Albuterol Rt 2.5 Mg/0.5 Ml Nebu) 7.5 mg INH X1 ONE Stop: 04/07/25 19:44 Last Admin: 04/07/25 21:55 Dose: 7.5 mg Documented By: KB Calcium Gluconate (Calcium Gluconate 10% Inj 1 Gm/10 Ml Vial) 1 gm IV X1 ONE Stop: 04/07/25 19:44 Last Admin: 04/07/25 20:20 Dose: 1 gm Documented By: GB Cyclobenzaprine HCl (Cyclobenzaprine 5 Mg Tablet) 10 mg PO X1 ONE Stop: 04/07/25 18:21 Last Admin: 04/07/25 18:40 Dose: 10 mg Documented By: EF Furosemide (Furosemide Inj 10 Mg/Ml Vial 2 Ml) 40 mg IVP X1 ONE Stop: 04/07/25 19:44 Last Admin: 04/07/25 20:21 Dose: 40 mg Documented By: GB Dextrose (D10w 1000 Ml) 1,000 mls @ 100 mls/hr IV .Q10H FOREIGN Stop: 04/08/25 05:44 Last Admin: 04/07/25 21:54 Dose: Not Given Documented By: WO Non-Admin Reason: Discontinued Insulin Human Regular (Insulin Hum Regular 1 Unit/0.01 Ml (Per Unit)) 10 unit IV X1 ONE Stop: 04/07/25 19:44 Last Admin: 04/07/25 20:22 Dose: 10 unit Documented By: AMANDA Co-signed By: ARNAV Lidocaine HCl (Lidocaine Jelly 2% (Urojet) 10 Ml Tube) 0 ml TOP X1 ONE Stop: 04/07/25 19:09 Last Admin: 04/07/25 19:18 Dose: 10 ml Documented By: ARNAV Morphine Sulfate (Morphine Sulf Inj 4 Mg/Ml Vial) 4 mg IVP X1 ONE Stop: 04/07/25 18:22 Last Admin: 04/07/25 18:40 Dose: 4 mg Documented By: ROSSY Morphine Sulfate (Morphine Sulf Inj 4 Mg/Ml Vial) 4 mg IVP X1 ONE Stop: 04/07/25 20:40 Last Admin: 04/07/25 21:28 Dose: 4 mg Documented By: ARNAV Sodium Polystyrene Sulfonate (Sod Polystyrene Sulfon Susp 15 Gm/60 Ml Btl) 60 gm PO X1 ONE Stop: 04/07/25 19:44 Last Admin: 04/07/25 20:20 Dose: 60 gm Documented By: AMANDA See above Consultations Consultation(s) initiated? (list below): No Diagnosis Urogenital Male Differential Diagnosis: urinary tract infection and other (Hematuria, hyperkalemia, ESRD) Most likely diagnosis given after review of the tests above:: Hematuria, hyperkalemia, ESRD Admission Indicated Admission indicated?: not indicated Admission Request Was there a request for admission?: No Disposition Plan Disposition Plan: Discharge Discharge Attestation Discharge Attestation: The patient was given an opportunity to ask questions and understood the discharge instructions. Discharge instructions specifically effects, indications for sooner follow up or return to the emergency department, and the expected course of current diagnosis. Patient condition: Stable Discharge Plan Plan Patient Disposition: HOME (Self Care) Discharge Disposition comment: Stable Prescriptions/Referrals Prescriptions/Med Rec: New nitrofurantoin monohyd/m-cryst [Macrobid] 100 mg capsule 100 mg PO Q12H 7 Days Qty: 14 0RF Rx Instructions: must administer with a meal/food No Action sevelamer carbonate 800 mg Tablet 2,400 mg PO TIDWMEAL magnesium oxide 400 mg magnesium Capsule 400 mg PO BID levothyroxine 25 mcg Tablet 25 mcg PO QDAY cholestyramine (with sugar) 4 gram Powder In Packet 1 ea PO BID gabapentin 600 mg Tablet 600 mg PO TID omeprazole 40 mg capsule,delayed release(DR/EC) 40 mg PO QDAY Patient Comments: TAKE ONE CAPSULE BY MOUTH EVERY DAY midodrine 10 mg tablet 10 mg PO TID PRN (Reason: Hypotension) cinacalcet 30 mg tablet 30 mg PO QDAY Patient Comments: TAKE ONE TABLET BY MOUTH EVERY DAY hydrocodone-acetaminophen 10-325 mg tablet 1 tab PO Q6H PRN (Reason: Pain (Scale Score 7-10)) sodium bicarbonate 650 mg tablet 650 mg PO BID Patient Comments: TAKE ONE TABLET BY MOUTH TWICE DAILY cyclobenzaprine 5 mg tablet 5 mg PO Q8HR PRN (Reason: Muscle Spasm) Patient Comments: TAKE ONE TABLET BY MOUTH EVERY 8 HOURS NEEDED FOR muscle SPASMS Lokelma 10 gram powder in packet 10 g PO QDAY PRN (Reason: POTTASIUM BINDER ) balsam zohreh-castor oil [Venelex] Ointment 1 applic top BID Qty: 60 0RF fosfomycin tromethamine 3 gram packet 1 packet PO Q OTHER DAY Qty: 1 0RF Rx Instructions: Take as directed Referrals: Bryce Bunn MD [Primary Care Provider, Family Practice] - In 1 week Problem List Clinical Impression: Urinary tract infection, Hematuria, Acute hyperkalemia Patient/Caregiver Discharge Instructions Discharge Activity: activity as tolerated Education Materials: ED Hematuria, ED Hyperkalemia Additional Instructions: Thank you for the opportunity for serving you today. You are stable for discharged . You are advised to: Follow-up with your PCP in 1 to 2 days Return to ED for worsening of symptoms Increase oral fluids Take medication as prescribed Print Language: Italian Stand Alone Forms: Mellissa Award Info., Patient Portal Info Letter PA/MADELAINE Supervising Physician MAYTE/MADELAINE Supervising Physician: Leatha
[2025-04-07] MEDS: MORPHINE SULF INJ 4 MG/ML VIAL IVP ×2 (18:40→21:28)
[2025-04-07 19:14] LABS: Basophils # (Auto) 0.1 Thou/mm3 (0.0-0.2); Basophils % (Auto) 1 % (0-2.5); Eosinophils # (Auto) 0.2 Thou/mm3 (0.0-0.5); Eosinophils % (Auto) 4 % (0-10); Hematocrit 40.4 % (41.0-53.0); Hemoglobin 12.5 g/dL (13.5-16.0); Immature Granulocytes Auto 0.00 Thou/mm3 (0.00-0.00); Lymphocytes # (Auto) 1.0 Thou/mm3 (1.0-4.8); Lymphocytes % (Auto) 19 % (10-50); Mean Corpuscular HGB Conc 30.9 g/dl (31.0-37.0); Mean Corpuscular Hemoglobin 32.1 pg (25.0-35.0); Mean Corpuscular Volume 104 fL (80-100); Monocytes # (Auto) 0.6 Thou/mm3 (0.0-0.8); Monocytes % (Auto) 11 % (0-12); Neutrophils # (Auto) 3.4 Thou/mm3 (1.8-7.7); Neutrophils % (Auto) 66 % (37-80); Nucleated Red Blood Cell # 0.00 Thou/mm3 (0.00-0.00); Nucleated Red Blood Cell % 0 /100 WBC (0); Platelet Count 104 Thou/mm3 (140-440); RDW Standard Deviation 51.4 fL (35.1-43.9); Red Blood Count 3.89 Miln/mm3 (4.50-5.90); White Blood Count 5.1 Thou/mm3 (3.8-10.6)
[2025-04-07] MEDS: LIDOCAINE JELLY 2% (Urojet) 10 ML TUBE TOP (19:18)
[2025-04-07 19:27] LABS: INR 1.0 (0.9-1.3); Partial Thromboplastin Time 29.2 Seconds (22.0-36.0); Prothrombin Time 10.9 Seconds (9.0-12.2)
[2025-04-07 19:36] LABS: Alanine Aminotransferase 11 U/L (10-49); Albumin, Serum 4.7 gm/dL (3.5-5.0); Albumin/Globulin Ratio 1.5 (1.2-2.2); Alkaline Phosphatase 184 U/L (46-116); Anion Gap 7 (7-16); Aspartate Amino Transferase < 10 U/L (0-34); BUN/Creatinine Ratio 6 Ratio (12-20); Bilirubin,Total 0.2 mg/dL (0.3-1.2); Blood Urea Nitrogen 35 mg/dL (9-23); Calcium 9.7 mg/dL (8.3-10.6); Calcium (Corrected) 9.7 mg/dL (8.5-10.1); Carbon Dioxide 22.1 mMol/L (20.0-31.0); Chloride 102 mMol/L (98-107); Creatinine (Component) 6.1 mg/dL (0.6-1.3); Estimated Creatinine Clearance 22.2 mL/min (>60); Globulin 3.1 gm/dL (2.3-3.5); Glucose 76 mg/dL (74-106); Osmolality,Calculated 269 (275-295); Sodium 131 mMol/L (136-145); Total Protein 7.8 gm/dL (5.7-8.2); eGFR 11 See Note
[2025-04-07 19:40] LABS: Potassium 7.5 mMol/L (3.4-5.1)
--- NOTE | 2025-04-07 19:43 | EKG_ITS ---
[facility] Test Date: 2025-04-07 Pat Name: KENNEDY LEDEZMA Department: Room: - Gender: Male Le[employer]anner: : [id number] Requested By: Sylvester Cotton Order Number: [id number] Reading MD: Sylvester Cotton Measurements Intervals Bryan Rate: 89 P: 49 MO: 197 QRS: -40 QRSD: 119 T: 70 QT: 348 QTc: 424 Interpretive Statements SINUS RHYTHM LEFT AXIS DEVIATION [QRS AXIS < -30] MODERATE INTRAVENTRICULAR CONDUCTION DELAY [110+ ms QRS DURATION] Compared to ECG 01/08/2025 02:01:01 Intraventricular conduction delay now present Sinus arrhythmia no longer present /store/[id number].pdf
[2025-04-07] MEDS: CALCIUM GLUCONATE 10% INJ 1 GM/10 ML VIAL IV (20:20)
[2025-04-07] MEDS: SOD POLYSTYRENE SULFON SUSP 15 GM/60 ML BTL 60 GM PO (20:20)
[2025-04-07] MEDS: FUROSEMIDE INJ 10 MG/ML VIAL 2 ML 40 MG IVP (20:21)
[2025-04-07] MEDS: INSULIN HUM REGULAR 1 UNIT/0.01 ML (PER UNIT) 10 UNIT IV (20:22)
[2025-04-07] MEDS: DEXTROSE 50%-WATER INJ 50 ML SYRINGE IV (20:24)
[2025-04-07] MEDS: ALBUTEROL RT 2.5 MG/0.5 ML NEBU 7.5 MG INH (21:55)
[2025-04-07 22:15] LABS: Collection Type, Urine Catheter; Squamous Epithelial Cell,Urine 0 /hpf (0-5)
[2025-04-07 22:32] LABS: Potassium 5.7 mMol/L (3.4-5.1)
[2025-04-07 22:32] LABS: Bilirubin,Urine Negative (Negative); Blood,Urine 3+ (Negative); Clarity,Urine Clear (Clear/Hazy); Color,Urine Colorless (Lt Yel-Yel); Culture Indicated,Urine Yes; Glucose, Urine Negative (Negative); Ketones,Urine Negative (Negative); Leukocyte Esterase,Urine Positive (Negative); Nitrite,Urine Negative (Negative); PH,Urine 6.5 (5.0-7.0); Protein,Urine 1+ (Neg - Trace); RBC,Urine 44 /hpf (0-3); Specific Gravity,Urine 1.002 (1.001-1.035); Urobilinogen,Urine Negative mg/dL (0.0-1.0); WBC,Urine 15 /hpf (0-5)
[2025-04-07] MEDS: NITROFURANTOIN MACRO 100 MG CAPSULE PO (23:04)
[2025-04-07] MEDS: HYDROcodone/APAP 5/325 TABLET 1 TAB PO (23:04)
== END 2025-04-08 01:13 | disposition home or self-care (01) ==
PROVIDERS: Nurse Practitioner Family; Emergency Provider Emergency Medicine; PCP Family Medicine
DX: N39.0 Urinary tract infection, site not specified (principal); E87.5 Hyperkalemia; G82.20 Paraplegia, unspecified; G89.29 Other chronic pain; N18.6 End stage renal disease; R31.0 Gross hematuria; Z91.158 Patient's noncompliance with renal dialysis for other reason; Z99.2 Dependence on renal dialysis
CPT/HCPCS: 36415; 51702; 80053; 81001; 84132; 85025; 85610; 85730; 87077; 87086; 87186; 93005; 94640; 96374; 96375; 96376; 99285; A4314; J0612; J1815; J1938; J2270; A9270; J7611